=== PATIENT | female | born 1995 | race Caucasian/White ===

== ENCOUNTER 2023-10-29 20:17 | Outpatient (REF) | payer OTHER, SELFPAY ==
[2023-11-03 16:09] LABS: Age Gdln ACOG Testing Note (.); IGP, rfx Aptima HPV ASCU Note (.)
== END 2023-10-29 20:18 | disposition home or self-care (01) ==
LOC: LAB 20:17
PROVIDERS: Visit Provider Obstetrics & Gynecology
DX: Z01.419 Encounter for gynecological examination (general) (routine) without abnormal findings (principal)
CPT/HCPCS: G0145

== ENCOUNTER 2023-11-11 13:59 | Outpatient (OUT) | payer OTHER, SELFPAY ==
--- NOTE | 2023-11-11 14:05 | US_ITS ---
[address] [address] Patient Name: SIVA WEEMS MRN: [id number] date: 1995 Sex: F Assigned Patient Location: US Current Patient Location: US Accession/Order Number: [id number] Exam Date: 11/11/2023 14:06 Report Date: 11/11/2023 14:59 At the request of: JORGE WHITLEY Procedure: US pelvis transvaginal EXAMINATION: US pelvis transvaginal HISTORY: menorrhagia with regular cycle N92.0 COMPARISON: No relevant comparison available. FINDINGS: The uterus is normal in size, contour and echotexture measuring 8.2 x 5.3 x 4.2 cm. No focal myometrial mass. The endometrium measures 9.1 mm, normal. The right ovary measures 4.5 x 3.0 x 3.2 cm. Normal color Doppler flow in the ovary. Areas of anechoic echogenicity the largest measuring 2.7 x 2.3 x 2.7 cm, simple cyst. The left ovary measures 3.3 x 2.7 x 2.3 cm. Normal subcentimeter follicles. Normal color Doppler flow in the ovary No free fluid US/US pelvis transvaginal IMPRESSION: 2.7 cm right ovarian simple cyst Electronically authenticated by: GLENNA IVY Date: 11/11/2023 14:59
[2023-11-11 14:54] LABS: Basophils Absolute Auto 0.1 10^3/uL (0.0-0.1); Basophils Percent Auto 0.5 % (0.2-2.0); Eosinophils Absolute Auto 0.7 10^3/uL (0.0-0.7); Eosinophils Percent Auto 6.2 % (0.9-7.0); Hematocrit 40.4 % (36.0-48.0); Hemoglobin 13.5 g/dL (12.0-16.0); Immature Granulocytes Abs Auto 0.03 10^3/uL (0.00-0.03); Immature Granulocytes Pct Auto 0.3 % (0.0-0.5); Lymphocytes Absolute Auto 2.6 10^3/uL (1.2-3.8); Lymphocytes Percent Auto 22.3 % (20.5-60.0); Mean Corpuscular HGB Conc 33.4 g/dL (29.9-35.2); Mean Corpuscular Hemoglobin 27.4 pg (26.7-34.0); Mean Corpuscular Volume 82.1 fL (81.0-99.0); Mean Platelet Volume 8.7 fL (9.5-13.5); Monocytes Absolute Auto 0.7 10^3/uL (0.3-0.8); Monocytes Percent Auto 5.9 % (1.7-12.0); Neutrophils Absolute Auto 7.7 10^3/uL (1.4-6.5); Neutrophils Percent Auto 64.8 % (43.0-75.0); Platelet Count 305 10^3/uL (150-450); Red Blood Count 4.92 10^6/uL (4.20-5.40); Red Cell Distribution Width 12.8 % (11.0-15.0); White Blood Count 11.9 10^3/uL (4.0-11.0)
[2023-11-11 15:11] LABS: Estimated Average Glucose 103 mg/dL; Glycohemoglobin A1C 5.2 % (4.5-6.2)
[2023-11-11 15:15] LABS: INR 0.94; Partial Thromboplastin Time 30.5 sec (22.3-36.2)
[2023-11-11 16:19] LABS: HCG Quantitative <1 mIU/mL; Thyroid Stimulating Hormone 1.361 uIU/mL (0.358-3.740)
== END 2023-11-11 14:00 | disposition home or self-care (01) ==
LOC: US 14:00
PROVIDERS: Visit Provider Obstetrics & Gynecology
DX: N92.0 Excessive and frequent menstruation with regular cycle (principal); N83.291 Other ovarian cyst, right side
CPT/HCPCS: 36415; 76830; 83036; 84443; 84702; 85025; 85610; 85730

== ENCOUNTER 2024-11-03 18:02 | Outpatient (REF) | payer OTHER, SELFPAY | END 2024-11-03 18:03 | disposition home or self-care (01) | LOC: LAB 18:02 | PROVIDERS: Visit Provider Obstetrics & Gynecology | DX: Z01.419 Encounter for gynecological examination (general) (routine) without abnormal findings (principal) | CPT/HCPCS: 87624; 88175 ==

== ENCOUNTER 2025-01-17 06:57 | Outpatient (OUT) | payer OTHER, SELFPAY ==
--- OUTSIDE RECORDS SUMMARY | 2025-01-17 07:02 | XMS_ITS | CCD ---
Author Organization [facility] Inform ion Partnership [facility] Care Team Providers Care Tent Worker Name Role Phone Rowdy Dennison Unavailable Unavailable Rowdy Dennison Unavailable Unavailable KRISH GO Admitting Unavailable KRISH GO Attending Unavailable RENETTA SHOOK Consulting Unavailable GLENNA ALONZO V Consulting Unavailable KRISH GO Consulting Unavailable INDY GILBERT Admitting Unavailab INDY Briones Attending Unavailab le INDY GILBERT Consulting Unavailab Indy Briones Unavailable Jeramy Fuchs Unavailable Ailyn Harry Unavailable Lili Downing Unavailable Yessenia Gross Unavailable Indy Gilbert NP Primary Care Provider Ofelia INSURANCE CLAIMS EXAMINER-CORRECTIONAL FACILITY PSYCHIATRISTIndy Primary Care Provid er MAGNO STALEY Referring Unavailable NESSARBACHERoscoe, INDY Primary Care Unavailable MAGNO STALEY Referring Unavailable NESSARBACHER, INDY Primary Care Unavailable MAGNO STALEY R Referring Unavailable ROHRBACHER, INDY Primary Care Unavailable Laila Nichole Referring Unavailable ROHRBACHER, INDY Primary Care Unavailable LINDSEY PEARL Attending Unavailable NADEEMACHEINDY Malhotra Referring Unavailable ROHRBACHER, INDY Primary Care Unavailable Rohrbacher INSURANCE CLAIMS EXAMINER-CORRECTIONAL FACILITY PSYCHIATRISTIndy Primary Care Provid er INDY GILBERT Referring Unavailable NESSARBACHER, INDY Primary Care Unavailable MAGNO STALEY Attending Unavailable MAGNO STALEY Attending Unavailable MAGNO STALEY Attending Unavailable MAGNO STALEY Attending Unavailable MAGNO STALEY Attending Unavailable TIERNEY BASS Attending Unavailable MAGNO STALEY Attending Unavailable MAGNO STALEY Attending Unavailable MIRELA PRESTON Attending Unavailable Allergies Allergy Classification Reported Allergen(s) Allergy Type Date of Onset Reaction(s) Facility (20 sources) Contrast media Propensity to adverse reactions 1 lip swelling, Swelling of Lip/Tongue/Thro at, lip swelling [facility] (20 sources) Amoxicillin; Translations: [AMOXICILLIN] Drug Allergy 4 Itching, Rash, Shortness of breath [facility] (19 sources) Cinnamon Preparation Drug Allergy 4 Anaphylaxis [facility] (19 sources) Red Dye #40 (Allura Red) Allergy to substance 4 Itching, Swelling [facility] (4 sources) Fd And C Red No.40; Translations: [FD AND C RED NO.40] Propensity to adverse reactions to drug 4 Anaphylaxis, Itching, Swelling [facility] Medications Current Medications Medication Drug Class(es) Dates Sig (Normalized) Sig (Original) amoxicillin 500 mg oral capsule (7 sources) Penicillin-class Antibacterial Start: 11-04-2021 take 1 capsule by mouth every eight hours Amoxicillin 500 MG 1 capsule Orally tid for 10 day(s) Nov, Active Start: 07-09-2021 End: 08-27-2021 take 1 capsule by mouth twice daily Amoxicillin 500 mg capsule Discontinued 500 MG PO Twice daily July 12, 2021 1:00am August 27, 2021 9:45am Started 07/08/21 for 10 day course Start: 07-08-2021 take 2 capsules by m outh every twenty-four hours Start: 07-08-2021 take 2 capsules by m outh every twenty-four hours Amoxicillin 500 MG 2 capsules Orally once a day for 10 days Jul, Active ascorbic acid 1000 mg oral tablet (20 sources) Vitamin C Ascorbic Acid (v itamin C) 1000 MG tablet Active busPIRone hydrochloride 10 m g oral tablet (20 sources) Start: 10-06-2023 End: 11-02-2024 busPIRone (Buspar) 10 MG tablet 10 mg 10/28/2023 Active Start: 12-18-2022 take 1 tablet by shakira th every twelve hours busPIRone HCl 5 MG 1 tablet Orally Twice a day for 30 days December, Active calcium ascorbate 500 mg oral tablet (1 source) Start: 12-07-2024 take 1 tablet by mouth once daily Ascorbate Calcium (Vitamin C) 500 mg tablet Active 500 MG PO Daily December 07, 2024 12:00am cholecalciferol 0.025 mg oral capsule (20 sources) Vitamin D Start: 12-07-2024 take 1 capsule by mouth once daily Cholecalciferol (Vitamin D3) 25 mcg (1,000 unit) capsule Active 25 MCG PO Daily December 07, 2024 12:00am Cholecalciferol (Vitamin D) 125 MCG (5000 UT) capsule Active take 1 capsule by mouth in the m orning cholecalciferol, vitamin D3, (VITAMIN D3) 5,000 units capsule Take 1 capsule (5,000 Units total) by mouth in the morning. Active desogestrel 0.15 mg / ethinyl estradiol 0.03 mg oral tablet (11 sources) Progestin, Estrogen Start: 06-14-2024 End: 07-12-2024 take 1 tablet by mouth once daily, then take 1 tablet by mouth once daily desogestrel-ethinyl estradiol (Apri) 0.15-30 MG-MCG tablet Indications: Encounter for initial prescription of contraceptives, unspecified contraceptive Take 1 tablet by mouth Daily for 28 days Take 1 tablet by mouth daily 28 tablet 06/14/2024 Active escitalopram 5 mg oral tablet (1 source) Serotonin Reuptake Inhibitor Start: 10-25-2021 take 1 tablet by mouth every twenty-four hours Escitalopram Oxalate 5 MG 1 tablet Orally Once a day for 30 day(s) Oct, Active 21 day ethinyl estradiol 0.200573 mg/hr / etonogestrel 0.005 mg/hr vaginal system (4 sources) Progestin, Estrogen Start: 11-03-2024 End: 11-03-2025 etonogestrel-ethinyl estradiol (Nuvaring) 0.12-0.015 MG/24HR vaginal ring Indications: control counseling Insert 1 Ring into the vagina every 28 (twenty-eight) days Insert vaginal ring for 3 weeks, then remove for 1 week. 1 each 11/03/2024 11/03/2025 Active {21 (ethinyl estradiol 0.035 MG / norgestimate 0.25 MG Oral Tablet) / 7 (inert ingredients 1 MG Oral Tablet) } Pack (2 sources) Progestin, Estrogen Start: 01-22-2023 take 1 tablet by mouth every twenty-four hours Norgestimate-Eth Estradiol 0.25-35 MG-MCG 1 tablet Orally Once a day for 28 days Jan, Active take 1 tablet by shakira once daily as needed Norgestimate-Eth Estradiol 0.25-35 MG-MC G take 1 tablet by mouth once daily for 28 Not-Taking/PRN Etonogestrel-Ethinyl Estradiol (Nuvaring) 0.12-0.015 mg/24 hr ring (1 source) Start: 12-07-2024 Etonogestrel-E thinyl Estradiol (Nuvaring) 0.12-0.015 mg/24 hr ring Active 1 VAG RING VAGINAL EVERY 4 WEEKS December 07, 2024 12:00am leave in place for 3 weeks of a 4-week cycle ferrous sulfate 134 mg oral tablet (15 sources) Start: 12-07-2024 take 1 tablet by mouth once daily Ferrous Sulfate 134 mg (27 mg iron) tablet Active 134 MG PO Daily December 07, 2024 12:00am ferrous sulfate 325 (65 Fe) MG EC tablet Take 325 mg by mouth in the morning and 325 mg at noon and 325 mg in the evening. Take with meals. Do not crush, chew, or split.. Active fluticasone propionate 0.05 mg/actuat metered dose nasal spray (3 sources) Corticosteroid Start: 10-06-2023 Fluticasone Pr opionate 50 mcg/actuation spray,suspension Active 1 SPRAY INTRANASAL Daily October 06, 2023 1:00am Start: 08-12-2023 take 1 spray(s) nasa l route once daily Fluticasone Propionate 50 MCG/ACT 1 spray in each nostril Nasally Once a day for 30 days Aug, Active hydrocortisone 10 mg/ml / neomycin 3.5 mg/ml / polymyxin b 38919 unt/ml otic suspension (1 source) Aminoglycoside Antibacterial, Polymyxin-class Antibacterial, Corticosteroid Start: 11-04-2021 Zspldekn-Ipxyjcook-OL 3.5-90198-5 3 drops right ear Three times a day for 7 days Nov, Active Magnesium (19 sources) Magnesium 100 MG capsule Active magnesium citrate 100 mg oral tablet (1 source) Start: 12-07-2024 take 1 capsule by mouth once daily Magnesium Citrate 100 mg capsule Active 100 MG PO Daily December 07, 2024 12:00am magnesium glycinate 100 mg magnesium capsule (2 sources) take 1 capsule by mouth in the morning magnesium glycinate 100 mg magnesium capsule Take 100 mg by mouth in the morning. Active metFORMIN hydrochloride 500 mg oral tablet (18 sources) Biguanide Start: 06-14-2024 End: 06-14-2025 take 1 tablet by mouth at mealtime metFORMIN (Glucophage) 500 MG tablet Indications: Encounter for weight management Take 1 tablet (500 mg) by mouth in the morning. Take with meals. 30 tablet 06/14/2024 06/14/2025 Active nystatin [id number] unt/ml topical cream (2 sources) Polyene Antifungal Start: 05-28-2024 Nystatin 100,000 unit/gram cream Active 1 APPLIC TOPICAL Twice daily May 28, 2024 12:00am omega-3 acid ethyl esters (jail) 1000 mg oral capsule (14 sources) take 1 capsule by mouth in the morning omega-3 acid ethyl esters (Lovaza) 1 g capsule Take 1 g by mouth in the morning and 1 g before bedtime. Active Raleigh-3 Fatty Acids 500 mg capsule (1 source) Start: 12-07-2024 take 1 capsule by mouth once daily [place]-3 Fatty Acids 500 mg capsule Active 500 MG PO Daily December 07, 2024 12:00am ondansetron 4 mg disintegrating oral tablet (4 sources) Serotonin-3 Receptor Antagonist Start: 07-25-2021 Start: 01-10-2021 End: 03-25-2021 take 1 tablet by mouth every six hours as needed for nausea Ondansetron Hcl (Zofran) 4 mg Tablet Discontinued 4 MG PO Q6H as needed for nausea January 10, 2021 12:00am March 25, 2021 12:14pm SLYND 4 mg (28) tablet (2 sources) Start: 09-09-2024 End: 12-02-2024 take 1 tablet by mouth in the morning SLYND 4 mg (28) tablet Take 1 tablet by mouth in the morning. 09/09/2024 12/02/2024 Active Tylenol Extra Strength 500 MG (2 sources) Completed/Discontinued Medications Medication Drug Class(es) Dates Sig (Normalized) Sig (Original) acetaminophen 500 mg oral tablet (2 sources) Start: 03-24-2021 End: 07-09-2021 take 2 tablets by mouth every six hours Acetaminophen 500 mg Tablet Discontinued 1000 MG PO Q6H March 24, 2021 12:00am July 09, 2021 5:32pm Start: 03-24-2021 End: 07-09-2021 take 1000 mg by mouth every six hours Acetaminophen Discontinued 1000 MG PO Q6H March 24, 2021 12:00am July 09, 2021 5:32pm cephalexin 500 mg oral capsule (3 sources) Cephalosporin Antibacterial Start: 09-03-2024 End: 09-10-2024 take 1 capsule by mouth in the morning, then take 1 capsule by mouth in the evening, then take 1 capsule by mouth at bedtime cephalexin (Keflex) 500 MG capsule Indications: Mastitis Take 1 capsule (500 mg) by mouth in the morning and 1 capsule (500 mg) in the evening and 1 capsule (500 mg) before bedtime. Do all this for 7 days. 21 capsule 09/03/2024 09/09/2024 Discontinued docusate sodium 100 mg oral capsule (2 sources) Start: 03-24-2021 End: 07-09-2021 take 1 capsule by mouth once daily at bedtime Docusate Sodium (Colace) 100 mg capsule Discontinued 100 MG PO Daily at bedtime March 24, 2021 12:00am July 09, 2021 5:32pm drospirenone 4 mg oral tablet (7 sources) Progestin Start: 09-09-2024 End: 12-20-2024 take 1 tablet by mouth once daily Drospirenone (Slynd) 4 MG tablet Indications: control counseling Take 1 tablet by mouth Daily 84 tablet 3 09/09/2024 12/20/2024 Discontinued (Therapy completed) ibuprofen 600 mg oral tablet (4 sources) Nonsteroidal Anti-inflammatory Drug Start: 03-24-2021 End: 07-09-2021 take 1 tablet by mouth every six hours Ibuprofen 600 mg Tablet Discontinued 600 MG PO Q6H March 24, 2021 12:00am July 09, 2021 5:32pm labetalol hydrochloride 200 mg oral tablet (12 sources) beta-Adrenergic Rissa Start: 07-09-2021 End: 10-06-2023 Labetalol 200 mg tablet Discontinued 100 MG PO Daily July 09, 2021 5:45pm October 06, 2023 2:40pm Start: 07-09-2021 End: 10-06-2023 take 100 mg by mouth once daily Labetalol Discontinued 100 MG PO Daily July 09, 2021 5:45pm October 06, 2023 2:40pm Start: 03-25-2021 End: 07-09-2021 take 1 tablet by mouth twice daily Labetalol 200 mg tablet Discontinued 200 MG PO Twice daily March 25, 2021 12:00am July 09, 2021 5:32pm Start: 03-01-2021 End: 03-25-2021 Labetalol 200 mg Tablet Disc ontinued 300 MG PO Three times daily March 01, 2021 12:00am March 25, 2021 12:14pm Start: 03-01-2021 End: 03-25-2021 take 300 mg by mouth three times daily Labetalol Discontinued 300 MG PO Three times daily March 01, 2021 12:00am March 25, 2021 12:14pm take 1 tablet by shakira th every twenty-four hours Labetalol HCl 100 MG 1 tablet Orally Once Daily for 90 day(s) Active levonorgestrel 0.893765 mg/hr intrauterine system (10 sources) Progestin, Progestin-containing Intrauterine Device Start: 04-01-2024 End: 03-31-2029 Levonorgestrel intrauterine device 52 mg meclizine hydrochloride 25 mg oral tablet (1 source) Antiemetic Start: 06-21-2024 End: 12-07-2024 take 1 tablet by mouth twice daily as needed Meclizine 25 mg tablet Discontinued 25 MG PO Twice daily as needed for motion sickness June 21, 2024 1:00am December 07, 2024 8:15am phentermine hydrochloride 37.5 mg oral tablet (20 sources) Sympathomimetic Amine Anorectic Start: 07-15-2024 End: 03-20-2025 take 1 tablet by mouth before mealtime phentermine (Adipex-P) 37.5 MG tablet Indications: Encounter for weight management Take 1 tablet (37.5 mg) by mouth in the morning. Take before meals. 90 tablet 09/09/2024 12/20/2024 Discontinued (Therapy completed) Vit 81-Zlbv-Dxqzk-Dha ( + Dha) 28 mg iron- 975 mcg-200 mg Combo Pack (2 sources) Start: 01-10-2021 End: 07-09-2021 Vit 97-Lrex-Onagd-Dha ( + Dha) 28 mg iron- 975 mcg-200 mg Combo Pack Discontinued 1 PO January 10, 2021 12:00am July 09, 2021 5:32pm traMADol hydrochloride 50 mg oral tablet (2 sources) Opioid Agonist Start: 08-27-2021 End: 10-06-2023 take 0.5-1 tablets by mouth every six hours as needed for pain Tramadol (Ultram) 50 mg tablet Discontinued 50 MG PO Q6H as needed for pain 30 7 August 27, 2021 1:00am October 06, 2023 2:41pm 08/05 - 1 tab po q 6 hours prn pain Turmeric extract (6 sources) End: 06-14-2024 Turmeric (QC Tumeric Complex) 500 MG capsule 06/14/2024 Discontinued Turmeric (QC Elyse dontrell Complex) 500 MG capsule Active Problems Active Problems Problem Classification Problem Date Documented Date Episodic/Chronic Anxiety disorders (7 sources) Anxiety; Translations: [Anxiety disorder, unspecified] Chronic Biliary tract disease (7 sources) Cholecystitis, unspecified; Translations: [Cholelithiasis without obstruction] Onset: 07-26-2021 Resolved: 07-26-2021 Episodic Comment on above: Problem List clean-u p per request of Phys. EHR Cmte Cancer; other and unspecified primary (1 source) History of benign phyllodes neoplasm of breast; Translations: [Personal history of other benign neoplasm] 10-13-2024 Episodic Essential hypertension (16 sources) Essential hypertension; Translations: [Essential (primary) hypertension] Onset: 06-05-2021 Resolved: 06-05-2021 Chronic Headache; including migraine (20 sources) Migraine; Translations: [Other migraine, not intractable, without status migrainosus] Chronic Hypertension complicating ; childbirth and the puerperium (2 sources) -induced hypertension; Translations: [Gestational [-induced] hypertension without significant proteinuria, unspecified trimester] 07-16-2023 Episodic Comment on above: Problem List clean-u p per request of Phys. EHR Cmte Immunizations and screening for infectious disease (11 sources) Contact with and (suspected) exposure to other viral communicable diseases; Translations: [Contact with and (suspected) exposure to other viral communicable diseases] Onset: 08-08-2021 Resolved: 11-04-2021 Episodic Mood disorders (8 sources) Moderate major depression, single episode; Translations: [Major depressive disorder, single episode, moderate] Chronic Mycoses (3 sources) Candidal intertrigo; Translations: [Candidiasis of skin and nail] 05-28-2024 Episodic Neoplasms of unspecified nature or uncertain behavior (3 sources) Phyllodes tumor of breast; 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 unspecified breast] Onset: 09-29-2024 09-09-2024 Episodic Other and unspecified benign neoplasm (1 source) Fibroadenoma of left breast; Translations: [Benign neoplasm of left breast] 10-13-2024 Episodic Other circulatory disease (4 sources) Elevated blood-pressure reading, without diagnosis of hypertension; Translations: [ELEVATED BP READING W/O DX HTN] Onset: 05-19-2020 Episodic Other injuries and conditions due to external causes (1 source) Motion sickness; Translations: [Motion sickness, initial encounter] 06-21-2024 Episodic Other nutritional; endocrine; and metabolic disorders (4 sources) Body mass index 30+ - obesity; Translations: [Body mass index (BMI) 39.0-39.9, adult] Chronic Other nutritional; endocrine; and metabolic disorders (2 sources) Hyperbilirubinemia; 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 EHR Cmte Other nutritional; endocrine; and metabolic disorders (1 source) Weight increased; Translations: [Abnormal weight gain] 08-12-2024 Episodic Other and delivery including normal (2 sources) Mother delivered; Translations: [Encounter for full-term uncomplicated delivery] 07-16-2023 Episodic Comment on above: Problem List clean-u p per request of Phys. EHR Cmte Other screening for suspected conditions (not mental disorders or infectious disease) (5 sources) Encounter for screening for lipoid disorders; Translations: [Encounter for screening for other metabolic disorders] Onset: 05-23-2020 07-16-2023 Episodic Comment on above: Problem List clean-u p per request of Phys. EHR Cmte Other skin disorders (1 source) Localized swelling, mass and lump, right upper limb; Translations: [Localized swelling, mass and lump, right upper limb] Onset: 09-29-2024 Episodic Other upper respiratory infections (15 sources) Acute upper respiratory infection, unspecified; Translations: [Sore throat symptom] Onset: 08-03-2019 Episodic Otitis media and related conditions (3 sources) Acute suppurative otitis media without spontaneous rupture of ear drum, right ear; Translations: [Otitis media, unspecified, right ear] Onset: 08-03-2019 Resolved: 11-04-2021 Episodic Pancreatic disorders (not diabetes) (2 sources) Gallstone pancreatitis; Translations: [Biliary acute pancreatitis without necrosis or infection] 07-16-2023 Episodic Comment on above: Problem List clean-u p per request of Phys. EHR Cmte Residual codes; unclassified (1 source) Localized edema Episodic Residual codes; unclassified (20 sources) Patient encounter status; Translations: [Procedure and treatment not carried out due to patient leaving prior to being seen by health care provider] Onset: 06-14-2024 07-16-2023 Episodic Comment on above: Problem List clean-u p per request of Phys. EHR Cmte Residual codes; unclassified (1 source) Family history of malignant neoplasm of ovary in first degree relative; Translations: [Family history of malignant neoplasm of ovary] 10-13-2024 Episodic Urinary tract infections (2 sources) Urinary tract infectious disease; Translations: [Urinary tract infection, site not specified] 07-16-2023 Episodic Comment on above: Problem List clean-u p per request of Phys. EHR Cmte Past or Other Problems Problem Classification Problem Date Documented Date Episodic/Chronic Abdominal pain (20 sources) Lower abdominal pain, unspecified; Translations: [Pain in female pelvis] Onset: 07-26-2021 Resolved: 07-26-2021 Episodic Contraceptive and procreative management (20 sources) Encounter for initial prescription of contraceptive pills; Translations: [Patient encounter status] Onset: 03-22-2024 Episodic Nausea and vomiting (1 source) Nausea with vomiting, unspecified Onset: 07-26-2021 Resolved: 07-26-2021 Episodic Nonmalignant breast conditions (20 sources) Inflammatory disorder of breast; Translations: [Mastitis without abscess] Onset: 06-14-2024 06-14-2024 Episodic Other ear and sense organ disorders (1 source) Unspecified acute noninfective otitis externa, right ear Onset: 11-04-2021 Resolved: 11-04-2021 Episodic Other liver diseases (1 source) Abnormal levels of other serum enzymes Onset: 07-26-2021 Resolved: 07-26-2021 Episodic Other lower respiratory disease (3 sources) Cough; Translations: [COUGH] Onset: 07-31-2019 Episodic Viral infection (1 source) COVID-19 Onset: 08-08-2021 Resolved: 08-08-2021 Results Test Name Value Interpretation Reference Range Facility CBC WITH AUTO DIFFERENTIALon 11-29-2024 BASOPHILS ABSOLUTE COUNT (10*3/UL) BY AUTOMATED COUNT 0.0 10*3/uL Normal [facility] Comment on above: Performed By: #### C BCA #### [facility] ([facility]) [address] [place] [address] VIR BASOPHILS RELATIVE PERCENT BY AUTOMATED COUNT 0.4 % Normal [facility] Comment on above: Performed By: #### C BCA #### [facility] ([facility]) [address] [place] [address] VIR CELLAVISION DIFFERENTIAL TYPE AUTOMATED DIFFERENTIAL Normal [facility] Comment on above: Performed By: #### C BCA #### [facility] ([facility]) [address] [place] [address] VIR Eosinophils (Bld) [#/Vol] 0.5 10*3/uL Normal [facility] Comment on above: Performed By: #### C BCA #### [facility] ([facility]) [address] [place] [address] VIR EOSINOPHILS RELATIVE PERCENT BY AUTOMATED COUNT 4.9 % Normal [facility] Comment on above: Performed By: #### C BCA #### [facility] ([facility]) [address] [place] [address] VIR Erythrocyte distribution width (RBC) [Ratio] 14.3 % Normal 11.5-15 [facility] Comment on above: Performed By: #### C BCA #### [facility] ([facility]) [address] [place] [address] VIR Hematocrit (Bld) [Volume fraction] 41.7 % Normal 35-47 [facility] Comment on above: Performed By: #### C BCA #### [facility] ([facility]) [address] [place] [address] VIR Hemoglobin (Bld) [Mass/Vol] 13.9 g/dL Normal 11.7-15.5 [facility] Comment on above: Performed By: #### C BCA #### [facility] ([facility]) [address] [facility] [address] [place] [address] VIR LYMPHOCYTES ABSOLUTE COUNT (10*3/UL) BY AUTOMATED COUNT 2.0 10*3/uL Normal [facility] Comment on above: Performed By: #### C BCA #### [facility] ([facility]) [address] [place] [address] VIR LYMPHOCYTES RELATIVE PERCENT BY AUTOMATED COUNT 21.5 % Normal [facility] Comment on above: Performed By: #### C BCA #### [facility] ([facility]) [address] [place] [address] VIR MCH (RBC) [Entitic mass] 27.4 pg Normal 27-34 [facility] Comment on above: Performed By: #### C BCA #### [facility] ([facility]) [address] [place] [address] VIR MCHC (RBC) [Mass/Vol] 33.2 g/dL Normal 32-36 [facility] Comment on above: Performed By: #### C BCA #### [facility] ([facility]) [address] [place] [address] VIR MCV (RBC) [Entitic vol] 83 fL Normal 80-100 [facility] Comment on above: Performed By: #### C BCA #### [facility] ([facility]) [address] [place] [address] VIR MONOCYTES ABSOLUTE COUNT (10*3/UL) BY AUTOMATED COUNT 0.4 10*3/uL Normal [facility] Comment on above: Performed By: #### C BCA #### [facility] ([facility]) [address] [place] [address] VIR MONOCYTES RELATIVE PERCENT BY AUTOMATED COUNT 4.4 % Normal [facility] Comment on above: Performed By: #### C BCA #### [facility] ([facility]) [address] [place] [address] VIR NEUTROPHILS ABSOLUTE COUNT BY AUTOMATED COUNT 6.3 10*3/uL Normal [facility] Comment on above: Performed By: #### C BCA #### [facility] ([facility]) [address] [place] [address] VIR NEUTROPHILS RELATIVE PERCENT BY AUTOMATED COUNT 68.8 % Normal [facility] Comment on above: Performed By: #### C BCA #### [facility] ([facility]) [address] [place] [address] VIR Platelet mean volume (Bld) [Entitic vol] 7.5 fL Normal 7-12 [facility] Comment on above: Performed By: #### C BCA #### [facility] ([facility]) [address] [place] [address] VIR Platelets (Bld) [#/Vol] 292 10*3/uL Normal 150-450 [facility] Comment on above: Performed By: #### C BCA #### [facility] ([facility]) [address] [place] [address] VIR RBC COUNT 5.05 X10E12/L Normal 3.8-5.2 [facility] Comment on above: Performed By: #### C BCA #### [facility] ([facility]) [address] [place] [address] VIR WBC (Bld) [#/Vol] 9.2 10*3/uL Normal 4-11 [facility] Comment on above: Performed By: #### C BCA #### [facility] ([facility]) [address] [place] [address] VIR COMPREHENSIVE METABOLIC PANE Humza 11-29-2024 Albumin [Mass/Vol] 4.5 g/dL Normal 3.2-5.3 [facility] Comment on above: Performed By: #### C MP #### [facility] ([facility]) [address] [place] [address] VIR ALP [Catalytic activity/Vol] 80 U/L Normal 39-130 [facility] Comment on above: Performed By: #### C MP #### [facility] ([facility]) [address] [place] [address] VIR ALT [Catalytic activity/Vol] 17 U/L Normal <=31 [facility] Comment on above: Performed By: #### C MP #### [facility] ([facility]) [address] [place] [address] VIR Anion gap [Moles/Vol] 10 mmol/L Normal 5-15 [facility] Comment on above: Performed By: #### C MP #### [facility] ([facility]) [address] [place] [address] VIR AST [Catalytic activity/Vol] 22 U/L Normal <=41 [facility] Comment on above: Performed By: #### C MP #### [facility] ([facility]) [address] [place] [address] VIR Bilirubin [Mass/Vol] 0.4 mg/dL Normal 0.3-1.2 [facility] Comment on above: Performed By: #### C MP #### [facility] ([facility]) [address] [place] [address] VIR Calcium [Mass/Vol] 9.4 mg/dL Normal 8.5-10.5 [facility] Comment on above: Performed By: #### C MP #### [facility] ([facility]) [address] [place] [address] VIR Chloride [Moles/Vol] 103 mmol/L Normal 98-109 [facility] Comment on above: Performed By: #### C MP #### [facility] ([facility]) [address] [place] [address] VIR CO2 [Moles/Vol] 25 mmol/L Normal 22-32 [facility] Comment on above: Performed By: #### C MP #### [facility] ([facility]) [address] [place] [address] VIR Creatinine [Mass/Vol] 0.78 mg/dL Normal 0.40-1.00 [facility] Comment on above: Result Comment: METH OD TRACEABLE TO IDMS STANDARD Performed By: #### C MP #### [facility] ([facility]) [address] [place] [address] VIR EGFR (CKD-EPI) NON-RACE DEPENDENT >^90 Normal >=60 [facility] Comment on above: Result Comment: Repo rted eGFR is based on the CKD-EPI 2020 equation that does not use a race coefficient. Performed By: #### C MP #### [facility] ([facility]) [address] [place] [address] VIR Glucose [Mass/Vol] 83 mg/dL Normal 65-99 [facility] Comment on above: Performed By: #### C MP #### [facility] ([facility]) [address] [place] [address] VIR Potassium [Moles/Vol] 4.6 mmol/L Normal 3.5-5.0 [facility] Comment on above: Performed By: #### C MP #### [facility] ([facility]) [address] [place] [address] VIR Protein [Mass/Vol] 8.1 g/dL High 6.0-8.0 [facility] Comment on above: Performed By: #### C MP #### [facility] ([facility]) [address] [place] [address] VIR Sodium [Moles/Vol] 138 mmol/L Normal 134-146 [facility] Comment on above: Performed By: #### C MP #### [facility] ([facility]) [address] [place] [address] VIR Urea nitrogen [Mass/Vol] 15 mg/dL Normal 5-23 [facility] Comment on above: Performed By: #### C MP #### [facility] ([facility]) [address] [place] [address] VIR LIPID PROFILEon 11-29-2024 Cholesterol [Mass/Vol] 144 mg/dL Low 150-200 [facility] Comment on above: Performed By: #### L IPR #### [facility] ([facility]) [address] [place] [address] VIR Cholesterol in HDL [Mass/Vol] 43 mg/dL Normal >39 [facility] Comment on above: Result Comment: HDL <40 mg/dL - High Risk HDL > or = 40mg/dL- Desirable HDL >60 mg/dL - Negative Risk Performed By: #### L IPR #### [facility] ([facility]) [address] [place] [address] VIR Cholesterol in LDL [Mass/Vol] 74 mg/dL Normal <130 [facility] Comment on above: Result Comment: LDL <100 mg/dL - Desirable LDL >160 mg/dL - High Risk Performed By: #### L IPR #### [facility] ([facility]) [address] [place] [address] VIR CHOLESTEROL:HDL 3.3 Normal 1.0-5.0 [facility] Comment on above: Performed By: #### L IPR #### [facility] ([facility]) [address] [place] [address] VIR Triglyceride [Mass/Vol] 133 mg/dL Normal 27-150 [facility] Comment on above: Performed By: #### L IPR #### [facility] ([facility]) [address] [place] [address] VIR VERY LOW LIPOPROTEIN 27 mg/dL Normal 0-30 [facility] Comment on above: Performed By: #### L IPR #### [facility] ([facility]) [address] [place] [address] VIR IGP,APTIMA HPV,AGE GDLNon AGE GDLN ACOG TESTING Note . [facility] Comment on above: TESTS RESULT FLAG UN ITS REF RANGE LAB Clinician Provided Cytology Information Source.............Cervix;Endocervix No. of containers..01 ThinPrep Vial Age Algo ACOG Shannon... -65 FLAG LEGEND: L-Low Normal,H-High Normal,LL-Alert Low,HH-Alert High <-Panic Low,>-Panic High,A-Abnormal,AA-Critical Abnormal Performed at: 01 =G [address] [place] [address] Debbie Capps MD, HPV APTIMA Negative Negative [facility] e Comment on above: This nucleic acid am plification test detects fourteen high- risk HPV types (16,18,31,33,35,39,45,51,52,56,58,59,66,68) without differentiation. Performed at: =G - [facility], [place] [id number] Econometrician: Debbie Capps MD, Phone: [phone] Performed at: WB - [facility] [address], [place] [id number] Econometrician: Debbie Capps MD, Phone: [phone] IGP, APTIMA HPV, RFX 16/18,45 Note . [facility] Comment on above: TESTS RESULT FLAG U NITS REF RANGE LAB DIAGNOSIS: 02 NEGATIVE FOR INTRAEPITHELIAL LESION OR MALIGNANCY. CELLULAR CHANGES ASSOCIATED WITH INFLAMMATION ARE PRESENT. THIS SPECIMEN WAS RESCREENED PART OF OUR SMOKING PIPE DRILLER AND THREADER PROGRAM. Specimen adequacy: 02 Satisfactory for evaluation. Endocervical and/or squamous metaplastic cells (endocervical component) are present. Performed by: 03 Ana Luisa Basilio, Montessori Program Director (ASC) QC reviewed by: 02 Erin Shah, Supervisory Montessori Program Director (ASCP) . 02 Note: Note 02 The Pap smear is a screening test designed to aid in the detection of premalignant and malignant conditions of the uterine cervix. It is not a diagnostic procedure and should not be used as the sole means of detecting cervical cancer. Both false-positive and false-negative reports do occur. Test Methodology: Note 02 This liquid based ThinPrep(R) pap test was screened with the use of an image guided system. HPV Genotype Reflex Note 02 Criteria not met, HPV Genotype not performed. FLAG LEGEND: L-Low Normal,H-High Normal,LL-Alert Low,HH-Alert High <-Panic Low,>-Panic High,A-Abnormal,AA-Critical Abnormal Performed at: 02 WB [facility] [address] [address] Debbie Capps MD, 03 KWCYT [facility] [address] [place] [address] Cecil Scott MD, BRUSH-SPATULA CERVIX ENDOCERVIX [facility] [place] POST BX DIAG UNI LTon 0 10-07-2024 [place] POST BX DIAG UNI LT [place] POST BX DIAG UNI LT *ADDENDUM*Addendum [...] Nichole MD on 10/07/2024 3:01 PM 100 Normal [facility] US BX BREAST US GUID INITIAL LTon 10-07-2024 US BX BREAST US GUID INITIAL LT US BX BREAST US GUID INITIAL LT [...] Nichole MD on 10/07/2024 3:01 PM 100 Normal [facility] Surgical Pathologyon 025 Surgical Pathology Normal [facility] Comment on above: Result Comment: [facility] [address] [place] [address] Surgical Pathology Consultation Patient Name:SIVA WEEMS:1995 (Age: 28)Gender:FTaken:10/04/2024Reported:10/07/2024Physician(s):Magno Staley DO ([phone])Copy To:Laila Nichole MD [facility] AVONDALEAccession #:[id number]. Rec. #:[id number]: #[id number] Final Pathologic Diagnosis Left breast,6 o'clock, 3 cmfn, mass, biopsy: BENIGN: Fibroadenoma Report Electronically Signed Out nsk/10/07/2024Melonie Lundberg MD [place] [address], License number: [id number]. Clinical History Biopsy procedure: Ultrasound; Target: Mass; Laterality: Left breast; Location: 6:00 3cmfn; BI-RAD: 4b; Suspect: Fibroadenoma vs. Phyllodes vs. Cancer Gross Description Received in formalin labeled DANK, left breast tissue are 7 fibroadipose tissue cores ranging from 0.2 cm-1.5 cm. The cores are submitted entirely in cassettes A and B. Time incised: 930 Time in formalin: 933 Cold ischemic time: 3 minutes Time in formalin before processin hours (2,ns,[id number], m8.1) SW sxw/10/04/2024NSK Specimen(s) Received Left breast Fee Codes(s): 1; [address] [place] DIAGNOSTIC BILATERAL W CADon 09-29-2024 [place] DIAGNOSTIC BILATERAL W CAD [facility] DIAGNOSTIC BILATERAL W CAD SIVA WEEMS 1995 [id number], [id number], [id number] EXAM: [facility] DIAGNOSTIC BILATERAL W CAD, US [...] on 09/29/2024 9:23 AM 4 c BIOPSY Normal [facility] US AXILLA (BREAST) RT LIMITE Don 09-29-2024 US AXILLA (BREAST) RT LIMITED US AXILLA (BREAST) RT LIMITED SIVA WEEMS 1995 [id number], [id number], [id number] EXAM: [facility] DIAGNOSTIC BILATERAL W CAD, US [...] on 09/29/2024 9:23 AM 4 c BIOPSY Normal [facility] US BREAST LT LIMITEDon 09-29 US BREAST LT LIMITED US BREAST LT LIMITED SIVA WEEMS 1995 [id number], [id number], [id number] EXAM: [facility] DIAGNOSTIC BILATERAL W CAD, US [...] on 09/29/2024 9:23 AM 4 c BIOPSY Normal [facility] HCG ( test) Ql (U)o n 04-01-2024 Interpretation and review of laboratory results Normal [facility] re Preg Test, Ur Negative [facility] e IUD Insertionon 04-01-2024 Najma De Leon LPN 04/02/2024 3:31 PM IUD Insertion Date/Time: 04/01/2024 10:22 AM Performed by: Magno Staley DO Authorized by: Magno Staley DO Consent: Consent obtained: Verbal Consent given by: Patient Procedure risks and benefits discussed: yes Patient questions answered: yes Patient agrees, verbalizes understanding, and wants to proceed: yes Educational handouts given: yes Instructions and paperwork completed: yes Procedure: Pelvic exam performed: yes Negative GC/chlamydia test: yes Negative urine test: yes Negative serum test: yes Cervix cleaned and prepped: yes Speculum placed in vagina: yes Tenaculum applied to cervix: yes Uterus sounded: yes IUD inserted with no complications: yes IUD type: Mirena Strings trimmed: yes Post-procedure: Patient tolerated procedure well: yes Patient will follow up after next period: yes [facility] e COVID/FLU/RSV RT-PCRon 07-21 SARS-CoV-2 (COVID-19) RNA IZZY+probe Ql (Unsp spec) Negative [employer] [facility] frenting Other COVID/FLU/RSV RT-PCR Negative [facility] Other COVID/FLU RT-PCRon SARS-CoV-2 (COVID-19) RNA IZZY+probe Ql (Unsp spec) Negative [facility] Other COVID/FLU RT-PCR Negative [facility] frenting Other COVID Quick Testingon 2021 Result Negative [employer] [facility]rent[facility] Other Quick Fluon 11-04-2021 FLUAV Ab CF (S) [Titer] Negative [facility] Other FLUBV Ab CF (S) [Titer] Negative [facility] Other Alkaline Phosphataseon 08-27 Alkaline Phosphatase Normal 32-92 [facility] Comment on above: Result Comment: Spec imen hemolyzed, redraw requested Performed By: #### L DH, ADDONUAPLUS, CUU, CMP, CBC, URIC #### [facility] [address] Amylaseon 08-27-2021 Amylase Normal 28-100 [facility] Comment on above: Result Comment: Spec imen hemolyzed, redraw requested Performed By: #### L DH, ADDONUAPLUS, CUU, CMP, CBC, URIC #### [facility] [address] Aspartate Amino Transferaseo n 08-27-2021 Aspartate Amino Transferase Normal 10-42 [facility] Comment on above: Result Comment: Spec imen hemolyzed, redraw requested Performed By: #### L DH, ADDONUAPLUS, CUU, CMP, CBC, URIC #### [address] Basic Metabolic Panelon 08-05 Calcium [Mass/Vol] 9.1 mg/dL Normal 8.2-10.2 [facility] Comment on above: Performed By: #### L DH, ADDONUAPLUS, CUU, CMP, CBC, URIC #### [address] Chloride [Moles/Vol] 101 mmol/L Normal 95-114 [facility] Comment on above: Performed By: #### L DH, ADDONUAPLUS, CUU, CMP, CBC, URIC #### [address] CO2 [Moles/Vol] 23.9 mmol/L Normal 22.0-30.0 [facility] Comment on above: Performed By: #### L DH, ADDONUAPLUS, CUU, CMP, CBC, URIC #### [address] Creatinine [Mass/Vol] 0.68 mg/dL Normal 0.44-1.03 [facility] Comment on above: Performed By: #### L DH, ADDONUAPLUS, CUU, CMP, CBC, URIC #### [facility] [address] [place] [address] [place] Creatinine Clr Calc Pharmacy 136.43 [facility] Comment on above: Performed By: #### L DH, ADDONUAPLUS, CUU, CMP, CBC, URIC #### [facility] [address] [place] [address] [place] Estimated GFR ( Inge > 60 [facility] Comment on above: Result Comment: GFR estimated reference range: According to KDOQI guidelines, <60 ml/min/1.73m2 is sufficient to diagnose a patient with chronic kidney disease. Performed By: #### L DH, ADDONUAPLUS, CUU, CMP, CBC, URIC #### [facility] [address] Estimated GFR (Non- Am > 60 [facility] Comment on above: Performed By: #### L DH, ADDONUAPLUS, CUU, CMP, CBC, URIC #### [facility] [address] Glucose [Mass/Vol] 89 mg/dL Normal 70-100 [facility] Comment on above: Result Comment: [place] om Glucose Reference Range is dependent on time and content of last meal. Glucose of more than 200 mg/dL in a nonstressed, ambulatory subject supports the diagnosis of Diabetes Mellitus. ADA recommended reference range Performed By: #### L DH, ADDONUAPLUS, CUU, CMP, CBC, URIC #### [facility] [address] Potassium Normal 3.5-5.1 [facility] Comment on above: Result Comment: Spec imen hemolyzed, redraw requested Performed By: #### L DH, ADDONUAPLUS, CUU, CMP, CBC, URIC #### [facility] [address] Sodium [Moles/Vol] 135 mmol/L Low 136-146 [facility] Comment on above: Performed By: #### L DH, ADDONUAPLUS, CUU, CMP, CBC, URIC #### [facility] [address] [place] [address] Urea nitrogen [Mass/Vol] 10 mg/dL Normal - [facility] Comment on above: Performed By: #### L DH, ADDONUAPLUS, CUU, CMP, CBC, URIC #### [facility] [address] [place] [address] Bilirubin, Total and Directo n 08-27-2021 Bilirubin,Direct Normal 0.0-0.4 [facility] Comment on above: Result Comment: Spec imen hemolyzed, redraw requested Performed By: #### L DH, ADDONUAPLUS, CUU, CMP, CBC, URIC #### [facility] [address] [place] [address] Bilirubin,Indirect Normal [facility] Comment on above: Result Comment: Spec imen hemolyzed, redraw requested Performed By: #### L DH, ADDONUAPLUS, CUU, CMP, CBC, URIC #### [address] Bilirubin,Total Normal 0.3-1.2 [facility] Comment on above: Result Comment: Spec imen hemolyzed, redraw requested Performed By: #### L DH, ADDONUAPLUS, CUU, CMP, CBC, URIC #### [address] HCG,Urineon 08-27-2021 Beta HCG ( test) Ql (U) Negative Normal [facility] Comment on above: Result Comment: PERF ORMED BY: [place] [address] PATHOLOGIST TUBE TRAILER FILLER CORY YAN M.D. Performed By: #### L DH, ADDONUAPLUS, CUU, CMP, CBC, URIC #### [place] [address] [place] [facility] 08-27-2021 L -- ---- Specimen: [id number] Received: 08/27/21 Status: EDI Enrique Num: [id number] Spec Type: Surgical Subm Dr: Jose Desouza DO Tissues: A Gallbladder (GALLBLADDER) Procedures: HE Stain, Gross/Micro L3 ---- Patient Age/Sex Location Account Attending Physician ---- Siva Weems 25/F CO [id number] Jose Desouza DO ---- SPEC NUM: [id number] RECD: 08/27/21 STATUS: EDI ENRIQUE NUM: [id number] CIARA: 08/27/21- SUBM DR: Jsoe Desouza DO ENTERED: 08/27/21 RICARDO RAYMUNDO: SPEC TYPE: Surgical DEPT: S ORDERED: HE Stain, Gross/Micro L3 ORDERED: HE Stain, Gross/Micro L3 Pathological Diagnosis Gallbladder, cholecystectomy: - Chronic cholecystitis with cholelithiasis and cholesterolosis - One benign lymph node (0/) Clinical Information Cholelithiasis, laparoscopic cholecystectomy Gross Description Received in 10% neutral buffered formalin, labeled with the patient's name, number and gallbladder is an unopened gallbladder, measuring 8.2 cm in length with a fundal diameter of up to 2 cm. The serosal surface is pink and smooth, while the hepatic surface is yellow, rough with cautery betancourt. The cystic duct is closed with a clip. In the gallbladder neck region there is a small defect measuring 0.2 cm, extruding dark green bile. A possible cystic duct lymph node is present, measuring 1.4 x 0.5 x 0.4 cm. The gallbladder is opened to reveal a small amount of dark green, viscous bile and a small gallstone (0.3 x 0.3 x 0.3 cm). The gallbladder wall is red and yellow with numerous newman yellow specks. No masses or other lesions are grossly identified. The gallbladder wall measures up to 0.4 cm in thickness. Data Designer sections including the entire lymph node are submitted in one cassette labeled A1. (JS/js) ---- Specimen: [id number] Received: 08/27/21 Status: CARLEYEdita Boby Num: [id number] Spec Type: Surgical Subm Dr: Jose Desouza,DO Tissues: A Gallbladder (GALLBLADDER) Procedures: HE Stain, Gross/Micro L3 ---- Patient: Siva Weems [id number] (Continued) ---- Specimen: [id number] Received: 08/27/21 (Continued) Signed (signature on file) Cory Yan MD 08/28/21 1717 ---- Specimen: [id number] Received: 08/27/21 Status: EDI Enrique Num: [id number] Spec Type: Surgical Subm Dr: Jose Desouza DO Tissues: A Gallbladder (GALLBLADDER) Procedures: GINO Partida, Gross/Micro L3 ---- Patient: Siva Weems Amaya [id number] (Continued) ---- Specimen: [id number] Received: 08/27/21 (Continued) Microscopic Description One glass slide with H E stained material has been examined. The microscopic findings support the above pathologic diagnosis. [id number] ---- ---- Specimen: [id number] Received: 08/27/21 Status: EDI Enrique Num: [id number] Spec Type: Surgical Subm Dr: Jose Desouza DO Tissues: A Gallbladder (GALLBLADDER) Procedures: HE Stain, Gross/Micro L3 ---- Patient: Siva Weems Amaya [id number] (Continued) ---- Signed (signature on file) Cory Yan MD 08/28/21 1717 Normal [facility] Lipaseon 08-27-2021 Lipase [Catalytic activity/Vol] 35.0 U/L Normal 22-51 [facility] Comment on above: Result Comment: PERF ORMED BY: [place] [address] PATHOLOGIST TUBE TRAILER FILLER CORY YAN M.D. Performed By: #### L DH, ASHWIN, CUU, CMP, CBC, URIC #### [address] [place] ERCPon 08-20-2021 [place] ERCP [facility] Main Keyser [address] [place] [address] Fluoroscopy Report Signed Patient: Siva Weems MR#: [id number] 13 : 1995 Acct:[id number] Age/Sex: 25 / F ADM Date: 08/20/21 Loc: Room: Type: [facility] Attending Dr: Ortega Morgan MD Ordering Provider: Ortega Morgan MD Date of Service: 08/20/21 FL/FL ERCP: . Copies to: Ortega Morgan MD ERCP - 3 images: CLINICAL DATA: Abnormal ultrasound and MRCP showing cholelithiasis and sludge. COMPARISON: Ultrasound 07/10/2021 and MRCP 07/11/2021 The procedure was performed by Dr. Morgan. Three spot films were obtained during retrograde injection of contrast into the distal common duct. The common duct is not distended. There are no intraluminal filling defects. A balloon sweep was performed. No gallstones were encountered. Fluoroscopy time: 45 seconds Impression dictated by: Rachel Elias M.D.08/20/2021 2:02 PM Dictation Location: [place] [address] Transcribed By: [facility] 08/20/21 1402 Dictated By: Rachel Elias MD 08/20/21 1400 Signed By: 08/20/21 1402 Normal [facility] HCG,Urineon 08-20-2021 Beta HCG ( test) Ql (U) Negative Normal [facility] Comment on above: Result Comment: PERF ORMED BY: [facility] [address] [place] [id number] PATHOLOGIST TUBE TRAILER FILLER CORY YAN M.D. Performed By: #### L DH, ADDONUAPLUS, CUU, CMP, CBC, URIC #### [facility] [address] [place] [address] [facility] COVID Quick Testingon 2021 Result Positive [facility] Other COVID-19 [facility]Con 08-06-2021 SARS-CoV-2 (COVID-19) RNA IZZY+probe Ql (Unsp spec) Positive Critically abnormal Negative [facility] Comment on above: Order Comment: Reaso n for Exam 30 weeks gestation of ;Elevated blood pressure affe Result Comment: Positive results will only be called to Providers for the following groups of patients: Pre-Surgical Testing, Emergency Room, and Inpatients. Testing for SARS-CoV-2 by RT-PCR This test was developed and its performance characteristics determined by [employer] ([employer]) and validated at the [facility]. This test has not been FDA cleared or approved. This test has been authorized by FDA under an Emergency Use Authorization (EUA). This test has been validated in accordance with the FDA's Guidance Document (Policy for Diagnostics Testing in Laboratories Certified to Perform High Complexity Testing under CLIA prior to Emergency Use Authorization for Coronavirus Disease-2019 during the Public Health Emergency) issued on November 04, 2019. This test is only authorized for the duration of time the declaration that circumstances exist justifying the authorization of the emergency use of in vitro diagnostic tests for detection of SARS-CoV-2 virus and/or diagnosis of COVID-19 infection under section 564(b)(1) of the Act, 21 U.S.C. 360bbb-3(b)(1), unless the authorization is terminated or revoked sooner. PERFORMED BY: [facility] [address] [facility] [place] [address] PATHOLOGIST TUBE TRAILER FILLER CORY YAN M.D. Performed By: #### L DH, ADDONUACRISTIANO, CUU, CMP, CBC, URIC #### [facility] [facility] [address] Coding Summaryon 07-30-2021 Coding Summary HTMLBase 64 DhqhppnpIGa4jVk+PGhlYW Q+UX6NVIIyT53gkJOzlV2Z B3cDGG8XEGPTNKVQCK0KBQ 4baTF8GPmeG0PycqLu JpqedBFgRQ57HHi0MLI9mZ liCRedjF2ieMYkL6y0EhQu BW64tC68JTkmHHTcVvY6Yc ZpbjsgbWFy O6soJhPphOYgFys+PHRhYm xlIHdpZHRoPScxMDAlJyBz aUhfKO4oJi7dDSEtWWKnvF xhcHNlOiBj k9jxSPQsNVbwPO6arMmxE1 NkeGC6WUWbh2h0Rm52xFD+ PMXzLID8gAuhEFehr039Uj Cxx6jvGHZ5 uDStROvfKJX1R33hw3L2TC BcZOLzZTS7zHQ1nD6udDah oiqiV0JgnPBlUfR5EFQ1uA FzrS4llJmk jnozkE0cCfv+R69CXU0MGC EVGH2GDtd0H3YbBpzpfUZ+ WU69HZXrDH01cHLwqIPlo7 tqgUl3QdBr NSHfIVB5xByuFBbjy8EgQH SzP27ekADzc0Z4EZRveHzb wLRoHqDmjHU3wJ5rQUhurw aly7apwdam Qthah3vzbx58fO20Z23rIM qyYAGhQCN8XTKaEXDbsMwg lo4ehG1vUg8+KEfcs5any4 eqkSo0UjSk QTPeqkNmwMguDYK1u7IlTr 65R3CtkEvhd0QeWik5zy84 pSGwz6R8lTV7PCwrPLPxaX 7gYKyrEjS3 FMAnJjBgfO55uFUiGUidSy 2fhStidWghKG3oBMSfzvvi KUKxxI9hFFSkeIBwvJieSA 4wNTBpbjtm o531ZyRdTQQ9FVXevPBgT6 RkjT9lRvWhZFTuUFCdX1Si kYPwVJrlX081TBawAiK5XY IeekKlU9Jf LCMopBuhBhN0l5H0Uy8Jc1 JftjbsBYR6DLxqARSjWeC8 NxSbVpN2V7HiReh4QHEtiS jfZX9dR7Io UTCbquvjmsytzMQ3QQYbQE IcmL00sFOiHLgrQz1dv1J0 g043CIMzDYPpsO30Wl4cmE ogMTBwdCBU tD8axcnvt7ltozuqFdDwBA WxDMg2CMo1RGXrrGbeNkNy LYC1PeB1OZM6yXSyoB6iqC ovybqiaQ1s Oyc+D87usO0uMFK0WNC4pz pzSVYmsyLiUR54ZQ98R4Ik PjwvdGFibGU+PGRpdiBzdH vmGU1eQyEt i8qdn6MrOEuzL2IzWUKjDQ riPro5NCBkSQL6cZT7mH0x AEBaULwph9V4vGU0S4Tlts Ngnr6tq1fj KYZiPOodO90xpIHnx0D2SE VptLK9LEDgsLkcYqDilR92 Oyc+JVCmkTfbx1QpLdvxr3 cky4tsfXq7 KjKyBBTqvvHbdWeqMNV7v2 UpQn34L27wGBinYXHeRGHf TYZmGMLaeZrvhq3vyY7bRw 8+PGNvbCB3 dJG6sF9lGNWbPuD7ZVkvO7 38AfEtiNNrBorzl5xwa6xl mCu2QuCjXHTmefJleNovYY S0p4LvLh44 G54lYThbYEUkQHUpJVNuHZ XweBxugz4emH8mGv9+PC9j r8nqwr02uZ25kKU+PHRkIH Z0lOojRHbl CSRveI2iWFebKiJ3UAFnLr LlzC11sIPrAPnwJr5bhJlb sHtqLZ4eCHGpszvii271Ej Xxo8gkPARa qEKkQQwdVVM1U12nu1P9KX AeIRJrIRD6rJQ7aM7xdXom bjogbGVmdDsgdmVydGljYW adCIupY225 IHRvcDsnPlBhdGllbnQgTm XaAUz7M4RgNku5JAWozXrd PZ3fnVNzCEmuIy4ozZweqN upIB5bJGLm qqshe165CeBsg3rmVOGtoP UeBMstEGO7E76xu6C5QZHe KINeFKF3jDK5cL9jnIrmfz ogbGVmdDsg fxJceYxgXRigEXilJ461TO RvcDsnPkJpcnRoIERhdGU6 AX15OX93uVSwv8S6gZJ8I0 BhZGRpbmct laqxtHM6PECuJEXphY42Cn 4mtJkeYr0eQVQuAYZ3ESPp pAJzR3GdlU2lIhMqNGSfLL FkF5DhxUFo SQciY185SHooKvP4EXNzqq XtH8OvGESnwJseTaH4t5Y8 Mf9JM8E0UK31SR04ePYij8 G5xOX9F0Wh EAOqjhkdvxhvaHA1BVInKV GzeR69Jo9tuTxrJp2gGDCe PPH0XFQqxZSsK1PsaF3vLv AjMDAwMDAw A4YpfWMsZUogE312WDouOm V2JFAsjiSoE6ApPDYngDul PxF6s6C1Ga5DEMb4KM46ZX 85xIAft4D7 pTB7O9LgCMGqgjlkxrhrdD W4NNRmDNEbsI86Pn0klFly Tq2vBZHdVID9GVTggTKaT7 QdlE1vXoRr YJYjBFVyR2ZaoYBsVUguC2 08PEktYyM0XAJfulNuV0Qw INTqoXjnKlO6s2L6Rk3XUZ UlDP40LJK8 vDE3PW94NO57J5OkKakynU FibGU+PHRhYmxlIHdpZHRo FFlsVCEaHfNufGikPU6lOl 9yZGVyLWNv yVjjbLAvPwJhq5qgKEHjFQ mjEX3qqCccC4OiuCG7IOPb q3h3Ok65W62xB8GtmEH+PG XwaYF9sCP5 lV7oIjCoUsA4YDfdX965Wz BinURzZfltw0oan2xhvJy8 KnB1CRWadySoeJmrDCL3v9 HtNo79J18h IHdpZHRoPSIxNSUiIHZhbG eujb2zwV4sVq0+PGNvbCB3 aHQ1eG2nRhGnCwI3JHswL0 49InRvcCIv Tvdps0utg2splPq0CuVyZN EmnxLqcJndEIC4k7QgHn75 Y3AijVcqb9CaSpt0ps42mL Kwf7R6sCW6 M1AmUVZtkneeqPGsoKxfPF 0kIVBzufpoYJTchM4iWESw I7i2HoHeDlN4APmeZ6Vhow R5JEKdbXQz SPrlQII6U98xr0Q5YUByIM CtNQG3oLD9aH3mgIbwszxw bGVmdDsgdmVydGljYWwtYW boK791DZMa gVxaPSXxiF6uRRQieSHxlN bnOG0wPBKxgggiXgCNI2tD HbWmJIhYKAvtNPVSQQF9B8 SyCom2OAPu vQncEB5itKIyLItzGp7juZ hmfPqeUS2eAUWapwswEEYl zC6sGTXpnWDeuKdvQY7cZV Lmdnewz884 FxQeKQL3BRGwmZMjH4XyaS 0gLoMaHFBlFNDeC4PngPRs YXliX085DAcxErA2UUCwvq WuJ2LzUOYx sQipMwM8x8U8Be3cMB8kVF 8xYJf0WI73LI66bJRpi3L5 vYN2A2TeMDUkzvehpxxmfQ I1ZSEoWPZr iZ68nNJxMFzbNo8rk5S1f2 19JRQvQCUknO91Sf3tpVog FSZdyLJLvL2xwfkhf2zecu ogIzAwMDAw PZh5ZUp8REVusMhlIwPiGP Q9LcS5CZW9bLImyS3fyGee xtodjK9rGow+MjcgWWVhcn Y9F9TxInz6 ETEfiXirTK2qnAZbTAzmTb 6iyMdluFmjKM6mJEKbdvtk MRUbxF1zJBUhfCOztMlzQF 4wNTBpbjtm x329LpTmGRM7WAAttNJgG1 YbdV6hNjTmMEViMJFpR8Yv zOKxKRjpX897SMsbXfC3XA CvpfEjN4Ei LKAinSpyIbG6b1R9Pw8OAE 3TESL7Q1ItGnt1GGYcyDsh YW5nbECfUBfmYn6qbAvurA npMB3fIZWh viejMFRmfO3lTXEmwZIykN wySC5hJBQspiyfi123WjCs MIV7RDFxwRGoI8LrkO6dWd AjMDAwMDAw D4QpoTKuCBjsF535EYdiCr L0LGMiznUxG9UgUCJfpHxk RjX5h5Z7Es4VJIlnvIW+PC 40yf01C8Rp OjpwCfq4ZZAyPUT3pUH9bL 7eLHEvWVbbg3I9iWW4V8Rp dhQwvz1re9tvHHZmWEhxI5 0ipUMuh8P7 VREepAD8FFDsdBpeXsLxlH 93Oyc+WMEruBosi7RxYpkq p4myy4jtgRz5YqOyPZNpli FsaWduPSJ0 x9NeDg00C64pUTwqBMJaJD GfJORxYBYtoSlavk6vgX1z Ii8+RTFppGF7bVK7hA0kGg KxHeH4OMax R647GjRewJQeYhvbb0vfv3 hamCy6VnYjAWRidnDhuHum WLJ9a8CyUw71H5PmpHinu0 ZdFbq3wx63 cOUmf9A7eUN8M8IdFLBllr qmjCBstJnlUN8fVABxrnkf SWXviE5sUQMtP7e9ZvYpDh R1LNgbE6Tr aqQ0JXXpqZWmGPHrnMMJuV 8ysvuei1cqnhjuWdFzDJCm IRf9YSi5SWGfnKmpGlEwGS L8KzZ9IQH2 yCQbnQ4bvLwbgbjdgW5wCb c+JXc8z8bfeLRrAX8cwEJ7 YB40BG23vYVuc3C1iZS8O6 BhZGRpbmct ligfnKM0DDAtXTJluA41Ez 4fkEkmRi5aRHWtRTQ7SLAl aBAuC0MqwT8vDhLnPUWqLH PaK8RftCJo GTnzX147VIfmPpC9ADVpau PlB9LtGWRysSafXkN9m5V5 Bk7WMQ53FB47MX70cHMib4 G7jDR6M6Bg BYVuagrsivzwoJM3AKGoLH WgiN93Hf7vgImoBp0pOMMe XAO1HHTtnWOgF5TtqO9zCr AjMDAwMDAw W8WsiLPrHTsiX555AOpoFz W3EPQrhtGbR5UkGHMytOys QiZ7g9D3Ey1DPp45KC88AU 99vWEba4V4 uMC6Q5HjGQHbainhrblbfJ J1ZTGgSMRxtV75Sn1pfRsr Sd0pQVPbIUE8ARTslIUnX0 GzjT6wWdEj PHCaQGCvL5GlaRSpKAzrE7 01JHcpUyK2IVDjzzNqI3Ew KRIahFebZuG9r7R6Qg6HXE hzlqj9Z9Jj PjwvdHI+ME38DKEwMI07wA UkoSEcp1oleWb5EiBiNUAq ONZ4hJhxIKmja9UuJXBfF4 7evDBsv6H4 IGN (more content not included)... Normal [facility] Provider Orderson 07-30-2021 Provider Orders [id number]#1.0 0OTGTIFF Normal [facility] Hepatic Function Panel Stand charissa 07-26-2021 Albumin [Mass/Vol] 4.4 g/dL Normal 3.5-5.0 [facility] Comment on above: Performed By: #### 1 [id number] #### [facility] (DEFAULT) [address] [place] [address] 97928 Albumin/Globulin [Mass ratio] 1.0 {ratio} Low 1.4-2.6 [facility] Comment on above: Performed By: #### 1 [id number] #### [facility] (DEFAULT) [address] [place] [address] 05929 Alk Phos 301 IU/L High 32-91 [facility] Comment on above: Performed By: #### 1 [id number] #### [facility] (DEFAULT) [address] [place] [address] 97908 ALT [Catalytic activity/Vol] 369.0 U/L High 14.0-54.0 [facility] Comment on above: Performed By: #### 1 [id number] #### [facility] (DEFAULT) [address] [place] [address] 28946 AST [Catalytic activity/Vol] 215 U/L High 15-41 [facility] Comment on above: Performed By: #### 1 [id number] #### [facility] (DEFAULT) [address] [place] [address] 87493 Bili Direct 0.30 mg/dL Normal 0.10-0.50 [facility] Comment on above: Performed By: #### 1 [id number] #### [facility] (DEFAULT) [address] [place] [address] 00356 Bili Indirect 0.8 mg/dL Normal 0.2-0.8 [facility] Comment on above: Performed By: #### 1 [id number] #### [facility] (DEFAULT) [address] [place] [address] 11092 Bili Total 1.1 mg/dL Normal 0.3-1.2 [facility] Comment on above: Performed By: #### 1 [id number] #### [facility] (DEFAULT) [address] [place] [address] 41498 Globulin (S) [Mass/Vol] 4.2 g/dL Normal 1.5-4.3 [facility] Comment on above: Performed By: #### 1 [id number] #### [facility] (DEFAULT) [address] [place] [address] 70659 Protein [Mass/Vol] 8.6 g/dL High 6.5-8.1 [facility] Comment on above: Performed By: #### 1 [id number] #### [facility] (DEFAULT) [address] [place] [address] 38983 Comprehensive Metabolic Pane [facility] 07-25-2021 Albumin [Mass/Vol] 4.0 g/dL Normal 3.2-5.5 [facility] Comment on above: Order Comment: Reaso n for Exam 30 weeks gestation of ;Elevated blood pressure affe Performed By: #### L DH, ADDONUAPLUS, CUU, CMP, CBC, URIC #### [facility] [address] [place] [address] [facility] Albumin/Globulin [Mass ratio] 1.0 {ratio} Normal [facility] Comment on above: Order Comment: Reaso n for Exam 30 weeks gestation of ;Elevated blood pressure affe Performed By: #### L DH, ADDONUAPLUS, CUU, CMP, CBC, URIC #### [facility] [address] [place] [address] ALP [Catalytic activity/Vol] 348 U/L High 32-92 [facility] Comment on above: Order Comment: Reaso n for Exam 30 weeks gestation of ;Elevated blood pressure affe Result Comment: PERF ORMED BY: [place] [address] PATHOLOGIST [employer]UBE TRAILER FILLER CORY YAN M.D. Performed By: #### L DH, ADDONUAPLUS, CUU, CMP, CBC, URIC #### [facility] [address] [place] [id number] [facility] ALT [Catalytic activity/Vol] 502 U/L High 10-60 [facility] Comment on above: Order Comment: Reaso n for Exam 30 weeks gestation of ;Elevated blood pressure affe Performed By: #### L DH, ADDONUAPLUS, CUU, CMP, CBC, URIC #### [address] AST [Catalytic activity/Vol] 450 U/L High 10-42 [facility] Comment on above: Order Comment: Reaso n for Exam 30 weeks gestation of ;Elevated blood pressure affe Performed By: #### L DH, ADDONUAPLUS, CUU, CMP, CBC, URIC #### [place] [id number] [facility] Bilirubin [Mass/Vol] 2.2 mg/dL High 0.3-1.2 [facility] Comment on above: Order Comment: Reaso n for Exam 30 weeks gestation of ;Elevated blood pressure affe Result Comment: Samp les from patients who have taken Naproxen have shown spurious elevation in Total Bilirubin levels. A metabolite of Naproxen, O-desmethylnaproxen, has been shown to interfere with the Jendrluanneik-Caitlin method for measuring Total Bilirubin. Performed By: #### L DH, ADDONUAPLUS, CUU, CMP, CBC, URIC #### [address] Calcium [Mass/Vol] 9.7 mg/dL Normal 8.2-10.2 [facility] Comment on above: Order Comment: Reaso n for Exam 30 weeks gestation of ;Elevated blood pressure affe Performed By: #### L DH, ADDONUAPLUS, CUU, CMP, CBC, URIC #### [facility] [address] Chloride [Moles/Vol] 101 mmol/L Normal 95-114 [facility] Comment on above: Order Comment: Reaso n for Exam 30 weeks gestation of ;Elevated blood pressure affe Performed By: #### L DH, ADDONUAPLUS, CUU, CMP, CBC, URIC #### [facility] [address] CO2 [Moles/Vol] 22.3 mmol/L Normal 22.0-30.0 [facility] Comment on above: Order Comment: Reaso n for Exam 30 weeks gestation of ;Elevated blood pressure affe Performed By: #### L DH, ADDONUAPLUS, CUU, CMP, CBC, URIC #### [facility] [address] [place] [address] Creatinine [Mass/Vol] 1.01 mg/dL Normal 0.44-1.03 [facility] Comment on above: Order Comment: Reaso n for Exam 30 weeks gestation of ;Elevated blood pressure affe Performed By: #### L DH, ADDONUAPLUS, CUU, CMP, CBC, URIC #### [facility] [address] Estimated GFR ( Inge > 60 [facility] Comment on above: Order Comment: Reaso n for Exam 30 weeks gestation of ;Elevated blood pressure affe Result Comment: GFR estimated reference range: According to KDOQI guidelines, <60 ml/min/1.73m2 is sufficient to diagnose a patient with chronic kidney disease. Performed By: #### L DH, ADDONUAPLUS, CUU, CMP, CBC, URIC #### [facility] [address] [place] [address] Estimated GFR (Non- Am > 60 [facility] Comment on above: Order Comment: Reaso n for Exam 30 weeks gestation of ;Elevated blood pressure affe Performed By: #### L DH, ADDONUAPLUS, CUU, CMP, CBC, URIC #### [facility] [address] Globulin (S) [Mass/Vol] 4.0 g/dL Normal [facility] Comment on above: Order Comment: Reaso n for Exam 30 weeks gestation of ;Elevated blood pressure affe Performed By: #### L DH, ADDONUAPLUS, CUU, CMP, CBC, URIC #### [facility] [address] Glucose [Mass/Vol] 80 mg/dL Normal 70-100 [facility] Comment on above: Order Comment: Reaso n for Exam 30 weeks gestation of ;Elevated blood pressure affe Result Comment: [facility] Glucose Reference Range is dependent on time and content of last meal. Glucose of more than 200 mg/dL in a nonstressed, ambulatory subject supports the diagnosis of Diabetes Mellitus. ADA recommended reference range Performed By: #### L DH, ADDONUAPLUS, CUU, CMP, CBC, URIC #### [address] Potassium [Moles/Vol] 4.2 mmol/L Normal 3.5-5.1 [facility] Comment on above: Order Comment: Reaso n for Exam 30 weeks gestation of ;Elevated blood pressure affe Performed By: #### L DH, ADDONUAPLUS, CUU, CMP, CBC, URIC #### [facility] [address] [place] [address] Protein [Mass/Vol] 8.0 g/dL High 6.1-7.9 [facility] Comment on above: Order Comment: Reaso n for Exam 30 weeks gestation of ;Elevated blood pressure affe Performed By: #### L DH, ADDONUAPLUS, CUU, CMP, CBC, URIC #### [facility] [address] [place] [address] [place] Sodium [Moles/Vol] 140 mmol/L Normal 136-146 [facility] Comment on above: Order Comment: Reaso n for Exam 30 weeks gestation of ;Elevated blood pressure affe Performed By: #### L DH, ADDONUAPLUS, CUU, CMP, CBC, URIC #### [facility] [address] Urea nitrogen [Mass/Vol] 16 mg/dL Normal 9- [facility] Comment on above: Order Comment: Reaso n for Exam 30 weeks gestation of ;Elevated blood pressure affe Performed By: #### L DH, ADDONUAPLUS, CUU, CMP, CBC, URIC #### [facility] [address] Hepatic Panelon 07-25-2021 Albumin [Mass/Vol] 4.0 g/dL Normal 3.2-5.5 [facility] Comment on above: Order Comment: Reaso n for Exam 30 weeks gestation of ;Elevated blood pressure affe Performed By: #### L DH, ADDONUAPLUS, CUU, CMP, CBC, URIC #### [facility] [address] Albumin/Globulin [Mass ratio] 0.9 {ratio} Normal [facility] Comment on above: Order Comment: Reaso n for Exam 30 weeks gestation of ;Elevated blood pressure affe Performed By: #### L DH, ADDONUAPLUS, CUU, CMP, CBC, URIC #### [facility] [address] [place] [address] ALP [Catalytic activity/Vol] 347 U/L High 32-92 [facility] Comment on above: Order Comment: Reaso n for Exam 30 weeks gestation of ;Elevated blood pressure affe Result Comment: PERF ORMED BY: [place] [address] PATHOLOGIST TUBE TRAILER FILLER CORY YAN M.D. Performed By: #### L DH, ADDONUAPLUS, CUU, CMP, CBC, URIC #### [facility] [address] ALT [Catalytic activity/Vol] 511 U/L High 10-60 [facility] Comment on above: Order Comment: Reaso n for Exam 30 weeks gestation of ;Elevated blood pressure affe Performed By: #### L DH, ADDONUAPLUS, CUU, CMP, CBC, URIC #### [facility] [address] [place] [id number] [facility] AST [Catalytic activity/Vol] 437 U/L High 10-42 [facility] Comment on above: Order Comment: Reaso n for Exam 30 weeks gestation of ;Elevated blood pressure affe Performed By: #### L DH, ADDONUAPLUS, CUU, CMP, CBC, URIC #### [facility] [address] [place] [id number] [facility] Bilirubin [Mass/Vol] 2.2 mg/dL High 0.3-1.2 [facility] Comment on above: Order Comment: Reaso n for Exam 30 weeks gestation of ;Elevated blood pressure affe Result Comment: Samp les from patients who have taken Naproxen have shown spurious elevation in Total Bilirubin levels. A metabolite of Naproxen, O-desmethylnaproxen, has been shown to interfere with the Jendrassik-Grof method for measuring Total Bilirubin. Performed By: #### L DH, ADDONUAPLUS, CUU, CMP, CBC, URIC #### [facility] [address] [place] [id number] [facility] Bilirubin,Indirect 1.1 mg/dL Normal [facility] Comment on above: Order Comment: Reaso n for Exam 30 weeks gestation of ;Elevated blood pressure affe Performed By: #### L DH, ADDONUAPLUS, CUU, CMP, CBC, URIC #### [facility] [address] [place] [id number] [place] Bilirubin.indirect [Mass/Vol] 1.1 mg/dL High 0.0-0.4 [facility] Comment on above: Order Comment: Reaso n for Exam 30 weeks gestation of ;Elevated blood pressure affe Performed By: #### L DH, ADDONUAPLUS, CUU, CMP, CBC, URIC #### [facility] [address] [place] [id number] [facility] Globulin (S) [Mass/Vol] 4.3 g/dL Normal [facility] Comment on above: Order Comment: Reaso n for Exam 30 weeks gestation of ;Elevated blood pressure affe Performed By: #### L DH, ADDONUAPLUS, CUU, CMP, CBC, URIC #### [facility] [address] Protein [Mass/Vol] 8.3 g/dL High 6.1-7.9 [facility] Comment on above: Order Comment: Reaso n for Exam 30 weeks gestation of ;Elevated blood pressure affe Performed By: #### L DH, ADDONUAPLUS, CUU, CMP, CBC, URIC #### [facility] [address] Dipstick and Microscopicon 1 09-19-2020 Appearance (U) Clear Normal Clear [facility] Comment on above: Order Comment: Reaso n for Exam 30 weeks gestation of ;Elevated blood pressure affe Performed By: #### L DH, ADDONUAPLUS, CUU, CMP, CBC, URIC #### [facility] [address] Bacteria,Urine None Seen Normal None Seen [facility] Comment on above: Order Comment: Reaso n for Exam 30 weeks gestation of ;Elevated blood pressure affe Performed By: #### L DH, ADDONUAPLUS, CUU, CMP, CBC, URIC #### [facility] [address] Bilirubin,Urine Negative Normal Negative [facility] Comment on above: Order Comment: Reaso n for Exam 30 weeks gestation of ;Elevated blood pressure affe Performed By: #### L DH, ADDONUAPLUS, CUU, CMP, CBC, URIC #### [facility] [address] Color (U) Yellow Normal Yellow [facility] Comment on above: Order Comment: Reaso n for Exam 30 weeks gestation of ;Elevated blood pressure affe Performed By: #### L DH, ADDONUAPLUS, CUU, CMP, CBC, URIC #### [facility] [address] Glucose Ql (U) Normal Normal Normal [facility] Comment on above: Order Comment: Reaso n for Exam 30 weeks gestation of ;Elevated blood pressure affe Performed By: #### L DH, ADDONUAPLUS, CUU, CMP, CBC, URIC #### [facility] [address] Hyaline Casts,Urine 9-19 High 0-8 [facility] Comment on above: Order Comment: Reaso n for Exam 30 weeks gestation of ;Elevated blood pressure affe Performed By: #### L DH, ADDONUAPLUS, CUU, CMP, CBC, URIC #### [facility] [address] Ketones Ql (U) Negative Normal Negative [facility] Comment on above: Order Comment: Reaso n for Exam 30 weeks gestation of ;Elevated blood pressure affe Performed By: #### L DH, ADDONUAPLUS, CUU, CMP, CBC, URIC #### [facility] [address] [place] [address] Leukocyte esterase Test strip Ql (U) Negative Normal Negative [facility] Comment on above: Order Comment: Reaso n for Exam 30 weeks gestation of ;Elevated blood pressure affe Performed By: #### L DH, ADDONUAPLUS, CUU, CMP, CBC, URIC #### [facility] [address] [place] [address] Nitrite,Urine Negative Normal Negative [facility] Comment on above: Order Comment: Reaso n for Exam 30 weeks gestation of ;Elevated blood pressure affe Performed By: #### L DH, ADDONUAPLUS, CUU, CMP, CBC, URIC #### [facility] [address] Occult Blood,Urine Negative Normal Negative [facility] Comment on above: Order Comment: Reaso n for Exam 30 weeks gestation of ;Elevated blood pressure affe Performed By: #### L DH, ADDONUAPLUS, CUU, CMP, CBC, URIC #### [facility] [address] [place] [address] [place] pH (U) 5.5 [pH] Normal 5.0-9.0 [facility] Comment on above: Order Comment: Reaso n for Exam 30 weeks gestation of ;Elevated blood pressure affe Performed By: #### L DH, ADDONUAPLUS, CUU, CMP, CBC, URIC #### [facility] [address] [place] [id number] [facility] Protein (U) [Mass/Vol] 30 mg/dL High Negative [facility] Comment on above: Order Comment: Reaso n for Exam 30 weeks gestation of ;Elevated blood pressure affe Performed By: #### L DH, ADDONUAPLUS, CUU, CMP, CBC, URIC #### [facility] [address] RBC,Urine 5-9 High 0-4 [facility] Comment on above: Order Comment: Reaso n for Exam 30 weeks gestation of ;Elevated blood pressure affe Performed By: #### L DH, ADDONUAPLUS, CUU, CMP, CBC, URIC #### [facility] [address] Renal Epithelial Cells,Urine None Seen Normal 0-1 [facility] Comment on above: Order Comment: Reaso n for Exam 30 weeks gestation of ;Elevated blood pressure affe Performed By: #### L DH, ADDONUAPLUS, CUU, CMP, CBC, URIC #### [facility] [address] [place] [address] Specificy [place],Urine 1.027 Normal 1.001-1.030 [facility] Comment on above: Order Comment: Reaso n for Exam 30 weeks gestation of ;Elevated blood pressure affe Performed By: #### L DH, ADDONUAPLUS, CUU, CMP, CBC, URIC #### [facility] [address] Squamous Epithelial Cell,Urine 5-9 High 0-2 [facility] Comment on above: Order Comment: Reaso n for Exam 30 weeks gestation of ;Elevated blood pressure affe Performed By: #### L DH, ADDONUAPLUS, CUU, CMP, CBC, URIC #### [facility] [address] [place], [place] [id number] [facility] Urobilinogen,Urine Normal Normal Normal [facility] Comment on above: Order Comment: Reaso n for Exam 30 weeks gestation of ;Elevated blood pressure affe Performed By: #### L DH, ADDONUAPLUS, CUU, CMP, CBC, URIC #### [facility] [address] [place] [address] WBC,Urine 5-9 High 0-4 [facility] Comment on above: Order Comment: Reaso n for Exam 30 weeks gestation of ;Elevated blood pressure affe Performed By: #### L DH, ADDONUAPLUS, CUU, CMP, CBC, URIC #### [facility] [address] [place] [address] HCG,Urineon 07-19-2021 Beta HCG ( test) Ql (U) Negative Normal [facility] Comment on above: Order Comment: Reaso n for Exam 30 weeks gestation of ;Elevated blood pressure affe Result Comment: PERF ORMED BY: [place] [address] PATHOLOGIST [employer] FILLER CORY YAN M.D. Performed By: #### L DH, ADDONUAPLUS, CUU, CMP, CBC, URIC #### [address] Hepatic Panelon 07-12-2021 Albumin [Mass/Vol] 3.1 g/dL Low 3.2-5.5 [facility] Comment on above: Performed By: #### L DH, ADDONUAPLUS, CUU, CMP, CBC, URIC #### [address] Albumin/Globulin [Mass ratio] 0.8 {ratio} Normal [facility] Comment on above: Performed By: #### L DH, ADDONUAPLUS, CUU, CMP, CBC, URIC #### [address] ALP [Catalytic activity/Vol] 260 U/L High 32-92 [facility] Comment on above: Result Comment: PERF ORMED BY: [place] [address] PATHOLOGIST [employer] TRAILER FILLER CORY YAN M.D. Performed By: #### L DH, ADDONUAPLUS, CUU, CMP, CBC, URIC #### [facility] [address] ALT [Catalytic activity/Vol] 304 U/L High 10-60 [facility] Comment on above: Performed By: #### L DH, ADDONUAPLUS, CUU, CMP, CBC, URIC #### [facility] [address] [place] [id number] [facility] AST [Catalytic activity/Vol] 151 U/L High 10-42 [facility] Comment on above: Performed By: #### L DH, ADDONUAPLUS, CUU, CMP, CBC, URIC #### [facility] [address] Bilirubin [Mass/Vol] 1.4 mg/dL High 0.3-1.2 [facility] Comment on above: Result Comment: Samp les from patients who have taken Naproxen have shown spurious elevation in Total Bilirubin levels. A metabolite of Naproxen, O-desmethylnaproxen, has been shown to interfere with the Jendrassik-Grof method for measuring Total Bilirubin. Performed By: #### L DH, ADDONUAPLUS, CUU, CMP, CBC, URIC #### [address] [address] Bilirubin,Indirect 0.9 mg/dL Normal [facility] Comment on above: Performed By: #### L DH, ADDONUAPLUS, CUU, CMP, CBC, URIC #### [address] Bilirubin.indirect [Mass/Vol] 0.5 mg/dL High 0.0-0.4 [facility] Comment on above: Performed By: #### L DH, ADDONUAPLUS, CUU, CMP, CBC, URIC #### [address] Globulin (S) [Mass/Vol] 3.7 g/dL [facility] Comment on above: Performed By: #### L DH, ADDONUAPLUS, CUU, CMP, CBC, URIC #### [address] Protein [Mass/Vol] 6.8 g/dL Normal 6.1-7.9 [facility] Comment on above: Performed By: #### L DH, ADDONUAPLUS, CUU, CMP, CBC, URIC #### [address] Complete Blood Count Auto Di ffon 07-11-2021 Basophils (Bld) [#/Vol] 0.0 10*3/uL Normal 0.0-0.2 [facility] Comment on above: Result Comment: PERF ORMED BY: [place] [address] PATHOLOGIST TUBE TRAILER FILLER CORY YAN M.D. Performed By: #### L DH, ADDONUAPLUS, CUU, CMP, CBC, URIC #### [address] Basophils/100 WBC (Bld) 0.4 % Normal . [facility] Comment on above: Performed By: #### L DH, ADDONUAPLUS, CUU, CMP, CBC, URIC #### [address] Eosinophils (Bld) [#/Vol] 0.4 10*3/uL Normal 0.0-0.45 [facility] Comment on above: Performed By: #### L DH, ADDONUAPLUS, CUU, CMP, CBC, URIC #### [address] Eosinophils/100 WBC (Bld) 5.9 % Normal . [facility] Comment on above: Performed By: #### L DH, ADDONUAPLUS, CUU, CMP, CBC, URIC #### [address] Erythrocyte distribution width (RBC) [Ratio] 15.7 % High 11.9-15.3 [facility] Comment on above: Performed By: #### L DH, ADDONUAPLUS, CUU, CMP, CBC, URIC #### [address] Hematocrit (Bld) [Volume fraction] 36.9 % Normal 34.0-46.4 [facility] Comment on above: Performed By: #### L DH, ADDONUAPLUS, CUU, CMP, CBC, URIC #### [address] Hemoglobin (Bld) [Mass/Vol] 12.2 g/dL Normal 11.8-15.4 [facility] Comment on above: Performed By: #### L DH, ADDONUAPLUS, CUU, CMP, CBC, URIC #### [address] Lymphocytes (Bld) [#/Vol] 1.0 10*3/uL Normal 1.00-4.8 [facility] Comment on above: Performed By: #### L DH, ADDONUAPLUS, CUU, CMP, CBC, URIC #### [address] Lymphocytes/100 WBC (Bld) 14.6 % Normal . [facility] Comment on above: Performed By: #### L DH, ADDONUAPLUS, CUU, CMP, CBC, URIC #### [address] MCH (RBC) [Entitic mass] 25.2 pg Normal 24.7-34.3 [facility] Comment on above: Performed By: #### L DH, ADDONUAPLUS, CUU, CMP, CBC, URIC #### [address] MCV (RBC) [Entitic vol] 76.5 fL Low 80-100 [facility] Comment on above: Performed By: #### L DH, ADDONUAPLUS, CUU, CMP, CBC, URIC #### [address] Mean Corpuscular HGB Conc 32.9 g/dL Normal 32.0-35.0 [facility] Comment on above: Performed By: #### L DH, ADDONUAPLUS, CUU, CMP, CBC, URIC #### [address] [place] [address] [place] Monocytes (Bld) [#/Vol] 0.4 10*3/uL Normal 0.0-0.8 [facility] Comment on above: Performed By: #### L DH, ADDONUAPLUS, CUU, CMP, CBC, URIC #### [address] Monocytes/100 WBC (Bld) 5.8 % Normal . [facility] Comment on above: Performed By: #### L DH, ADDONUAPLUS, CUU, CMP, CBC, URIC #### [address] Neutrophils (Bld) [#/Vol] 5.2 10*3/uL Normal 1.8-7.7 [facility] Comment on above: Performed By: #### L DH, ADDONUAPLUS, CUU, CMP, CBC, URIC #### [address] Neutrophils/100 WBC (Bld) 73.3 % Normal . [facility] Comment on above: Performed By: #### L DH, ADDONUAPLUS, CUU, CMP, CBC, URIC #### [address] Nucleated RBC/100 WBC (Bld) [Ratio] 0.1 % Normal 0-0.5 [facility] Comment on above: Performed By: #### L DH, ADDONUAPLUS, CUU, CMP, CBC, URIC #### [address] Platelet mean volume (Bld) [Entitic vol] 6.9 fL Normal 6.3-10.7 [facility] Comment on above: Performed By: #### L DH, ADDONUAPLUS, CUU, CMP, CBC, URIC #### [place] [address] [place] Platelets (Bld) [#/Vol] 287 10*3/uL Normal 150-450 [facility] Comment on above: Performed By: #### L DH, ADDONUAPLUS, CUU, CMP, CBC, URIC #### [facility] [address] RBC (Bld) [#/Vol] 4.83 10*6/uL Normal 3.60-5.00 [facility] Comment on above: Performed By: #### L DH, ADDONUAPLUS, CUU, CMP, CBC, URIC #### [facility] [address] WBC (Bld) [#/Vol] 7.1 10*3/uL Normal 4.5-11.0 [facility] Comment on above: Performed By: #### L DH, ADDONUAPLUS, CUU, CMP, CBC, URIC #### [facility] [address] [place] [address] Comprehensive Metabolic Pane humza 07-11-2021 Albumin [Mass/Vol] 3.1 g/dL Low 3.2-5.5 [facility] Comment on above: Performed By: #### L DH, ADDONUAPLUS, CUU, CMP, CBC, URIC #### [facility] [address] [place] [address] Albumin/Globulin [Mass ratio] 0.8 {ratio} Normal [facility] Comment on above: Performed By: #### L DH, ADDONUAPLUS, CUU, CMP, CBC, URIC #### [facility] [address] [place] [address] ALP [Catalytic activity/Vol] 268 U/L High 32-92 [facility] Comment on above: Performed By: #### L DH, ADDONUAPLUS, CUU, CMP, CBC, URIC #### [facility] [address] ALT [Catalytic activity/Vol] 331 U/L High 10-60 [facility] Comment on above: Performed By: #### L DH, ADDONUAPLUS, CUU, CMP, CBC, URIC #### [facility] [address] [place] [id number] [facility] AST [Catalytic activity/Vol] 149 U/L High 10-42 [facility] Comment on above: Performed By: #### L DH, ADDONUAPLUS, CUU, CMP, CBC, URIC #### [address] Bilirubin [Mass/Vol] 2.3 mg/dL High 0.3-1.2 [facility] Comment on above: Result Comment: Samp les from patients who have taken Naproxen have shown spurious elevation in Total Bilirubin levels. A metabolite of Naproxen, O-desmethylnaproxen, has been shown to interfere with the Jendrassik-Grof method for measuring Total Bilirubin. Performed By: #### L DH, ADDONUAPLUS, CUU, CMP, CBC, URIC #### [address] Calcium [Mass/Vol] 8.8 mg/dL Normal 8.2-10.2 [facility] Comment on above: Performed By: #### L DH, ADDONUAPLUS, CUU, CMP, CBC, URIC #### [address] Chloride [Moles/Vol] 107 mmol/L Normal 95-114 [facility] Comment on above: Performed By: #### L DH, ADDONUAPLUS, CUU, CMP, CBC, URIC #### [address] CO2 [Moles/Vol] 22.0 mmol/L Normal 22.0-30.0 [facility] Comment on above: Performed By: #### L DH, ADDONUAPLUS, CUU, CMP, CBC, URIC #### [address] Creatinine [Mass/Vol] 0.48 mg/dL Normal 0.44-1.03 [facility] Comment on above: Performed By: #### L DH, ADDONUAPLUS, CUU, CMP, CBC, URIC #### [facility] [address] [place] [address] [place] Creatinine Clr Calc Pharmacy 199.21 Normal [facility] Comment on above: Performed By: #### L DH, ADDONUAPLUS, CUU, CMP, CBC, URIC #### [facility] [address] Estimated GFR ( Inge > 60 Normal [facility] Comment on above: Result Comment: GFR estimated reference range: According to KDOQI guidelines, <60 ml/min/1.73m2 is sufficient to diagnose a patient with chronic kidney disease. Performed By: #### L DH, ADDONUAPLUS, CUU, CMP, CBC, URIC #### [facility] [address] Estimated GFR (Non- Am > 60 Normal [facility] Comment on above: Performed By: #### L DH, ADDONUAPLUS, CUU, CMP, CBC, URIC #### [address] Globulin (S) [Mass/Vol] 3.7 g/dL Normal [facility] Comment on above: Performed By: #### L DH, ADDONUAPLUS, CUU, CMP, CBC, URIC #### [address] Glucose [Mass/Vol] 87 mg/dL Normal 70-100 [facility] Comment on above: Result Comment: [place] Glucose Reference Range is dependent on time and content of last meal. Glucose of more than 200 mg/dL in a nonstressed, ambulatory subject supports the diagnosis of Diabetes Mellitus. ADA recommended reference range Performed By: #### L DH, ADDONUAPLUS, CUU, CMP, CBC, URIC #### [address] Potassium [Moles/Vol] 3.6 mmol/L Normal 3.5-5.1 [facility] Comment on above: Performed By: #### L DH, ADDONUAPLUS, CUU, CMP, CBC, URIC #### [address] Protein [Mass/Vol] 6.8 g/dL Normal 6.1-7.9 [facility] Comment on above: Performed By: #### L DH, ADDONUAPLUS, CUU, CMP, CBC, URIC #### [facility] [address] Sodium [Moles/Vol] 138 mmol/L Normal 136-146 [facility] Comment on above: Performed By: #### L DH, ADDONUAPLUS, CUU, CMP, CBC, URIC #### [facility] [address] [place] [id number] [facility] Urea nitrogen [Mass/Vol] 4 mg/dL Low 9-23 [facility] Comment on above: Performed By: #### L DH, ADDONUAPLUS, CUU, CMP, CBC, URIC #### [facility] [address] Lipaseon 07-11-2021 Lipase [Catalytic activity/Vol] 326.0 U/L High 22-51 [facility] Comment on above: Result Comment: PERF ORMED BY: [place] [address] PATHOLOGIST TUBE TRAILER FILLER CORY YAN M.D. Performed By: #### L DH, ADDONUAPLUS, CUU, CMP, CBC, URIC #### [facility] [address] MR MRCPon 07-11-2021 MR MRCP [facility] Main [place] [address] [place] [address] MRI Report Signed Patient: Siva Weems MR#: [id number] 13 : 1995 Acct:[id number] Age/Sex: 25 / F ADM Date: 07/10/21 Loc: Room: [address] [place] [address] Type: ADM IN Attending Dr: Jade Jauregui MD Ordering Provider: Ortega Morgan MD Date of Service: 07/11/21 MR/MR MRCP: r/o choledocholithiasis Copies to: MD Jade uV MD EXAMINATION: MRCP CLINICAL INFORMATION: Elevated bilirubin, cholelithiasis. Concern for choledocholithiasis. Right upper quadrant pain with eating. COMPARISON: Ultrasound of gallbladder on 07/10/2021 TECHNIQUE: MR examination of the abdomen were obtained using T1-weighted in phase and bix-di-xiban axial and T2-weighted 5 mm coronal images of the upper abdomen with breath holding technique, as well as STIR 40 mm slab images in various coronal planes with breath holding technique for evaluation of the biliary and pancreatic ducts. FINDINGS: There is normal caliber of the common bile duct without intraluminal filling defect. The visualized intrahepatic bile ducts are also unremarkable. Intraluminal filling defects are noted within the gallbladder from cholelithiasis. There appears mild pericholecystic edema. The pancreas is of unremarkable size without peripancreatic inflammation. The spleen, adrenal glands, and kidneys are unremarkable. There is no ascites. MR/MR MRCP IMPRESSION: NORMAL COMMON BILE DUCT. CHOLELITHIASIS WITH MILD PERICHOLECYSTIC EDEMA. Impression dictated by: Max Rosales M.D.07/11/2021 12:37 PM Dictation Location: [place] [address] Transcribed By: [facility] 07/11/21 1237 Dictated By: Max Rosales MD 07/11/21 1230 Signed By: 07/11/21 1237 Normal [facility] Prothrombin Time INRon 07-11 INR Coag (PPP) [Relative time] 1.1 {INR} Normal [facility] Comment on above: Result Comment: INR Therapeutic Range A) Pre- and Peroperative OAT started two weeks before surgery. NOT HIP SURGERY: 1.5 - 2.5 HIP SURGERY: 2 - 3 B) Primary and secondary prevention of venous THROMBOSIS: 2 - 3 C) Active venous thrombosis, pulmonary embolism and prevention of recurrent venous thrombosis: 2 - 3 D) Prevention of arterial thromboembolism including patients with mechanical heart valves: 3 - 4.5 PERFORMED BY: [place] [address] PATHOLOGIST TUBE TRAILER FILLER CORY YAN M.D. Performed By: #### L REANNA, ASHWIN, CUU, CMP, CBC, URIC #### [facility] [address] [place] [address] PT Coag (PPP) [Time] 12.6 s Normal 9.0-12.9 [facility] Comment on above: Performed By: #### L REANNA, ASHWIN, CUU, CMP, CBC, URIC #### [facility] [address] Type and Screenon 07-11-2021 ABO and Rh group Nom (Bld) Blood group A Rh(D) positive Normal [facility] Comment on above: Result Comment: PERF ORMED BY: [place] [address] PATHOLOGIST TUBE TRAILER FILLER CORY YAN M.D. Basic Metabolic Panelon Calcium [Mass/Vol] 9.2 mg/dL Normal 8.2-10.2 [facility] Comment on above: Performed By: #### L DH, ADDONUAPLUS, CUU, CMP, CBC, URIC #### [address] Chloride [Moles/Vol] 105 mmol/L Normal 95-114 [facility] Comment on above: Performed By: #### L DH, ADDONUAPLUS, CUU, CMP, CBC, URIC #### [address] CO2 [Moles/Vol] 21.5 mmol/L Low 22.0-30.0 [facility] Comment on above: Performed By: #### L DH, ADDONUAPLUS, CUU, CMP, CBC, URIC #### [address] Creatinine [Mass/Vol] 0.66 mg/dL Normal 0.44-1.03 [facility] Comment on above: Performed By: #### L DH, ADDONUAPLUS, CUU, CMP, CBC, URIC #### [address] Creatinine Clr Calc Pharmacy 144.88 Normal [facility] Comment on above: Result Comment: PERF ORMED BY: [place] [address] PATHOLOGIST TUBE TRAILER FILLER CORY YAN M.D. Performed By: #### L DH, ADDONUAPLUS, CUU, CMP, CBC, URIC #### [facility] [address] [place] [address] Estimated GFR ( Inge > 60 Normal [facility] Comment on above: Result Comment: GFR estimated reference range: According to KDOQI guidelines, <60 ml/min/1.73m2 is sufficient to diagnose a patient with chronic kidney disease. Performed By: #### L DH, ADDONUAPLUS, CUU, CMP, CBC, URIC #### [facility] [address] Estimated GFR (Non- Am > 60 Normal [facility] Comment on above: Performed By: #### L DH, ADDONUAPLUS, CUU, CMP, CBC, URIC #### [facility] [address] Glucose [Mass/Vol] 108 mg/dL High 70-100 [facility] Comment on above: Result Comment: [place] Glucose Reference Range is dependent on time and content of last meal. Glucose of more than 200 mg/dL in a nonstressed, ambulatory subject supports the diagnosis of Diabetes Mellitus. ADA recommended reference range Performed By: #### L DH, ADDONUAPLUS, CUU, CMP, CBC, URIC #### [facility] [address] Potassium [Moles/Vol] 3.7 mmol/L Normal 3.5-5.1 [facility] Comment on above: Performed By: #### L DH, ADDONUAPLUS, CUU, CMP, CBC, URIC #### [facility] [address] Sodium [Moles/Vol] 138 mmol/L Normal 136-146 [facility] Comment on above: Performed By: #### L DH, ADDONUAPLUS, CUU, CMP, CBC, URIC #### [facility] [address] [place] [address] [place] Urea nitrogen [Mass/Vol] 9 mg/dL Normal 9-23 [facility] Comment on above: Performed By: #### L DH, ADDONUAPLUS, CUU, CMP, CBC, URIC #### [facility] [address] [place] [address] [place] COVID-19 Antigenon 12-07-202 1 COVID-19 Antigen Healthcare Worker?: N Sadie Reference Sadie Reference Negative SARS-CoV+SARS-CoV-2 (COVID-19) Ag [Presence] in Respiratory specimen by Rapid immunoassay Negative for SARS Antigen by [facility] COVID19 Blank Space Sadie Disclaimer Negative results, from patients with symptom Sadie Disclaimer onset beyond five days, should be treated as Sadie Disclaimer presumptive and confirmation with a molecular Sadie Disclaimer assay, if necessary, for patient management, Sadie Disclaimer may be performed. Negative results do not rule Sadie Disclaimer out COVID-19 and should not be used as the sole Sadie Disclaimer basis for treatment or patient management Sadie Disclaimer decisions, including infection control decisions. Sadie Disclaimer Negative results should be considered in the Sadie Disclaimer context of a patient's recent exposures, history Sadie Disclaimer and the presence of clinical signs and symptoms Sadie Disclaimer consistent with COVID-19. COVID19 Blank Space Sadie Disclaimer The Sadie SARS Antigen [facility] does not differentiate Sadie Disclaimer between SARS-CoV and SARS-CoV-2. COVID19 Blank Space Sadie Disclaimer This test was developed and its performance Sadie Disclaimer characteristic determined by [facility] and Sadie Disclaimer validated at [facility]. This Sadie Disclaimer test has not been FDA cleared or approved. This Sadie Disclaimer test has been authorized by FDA under an Emergency Use Sadie Disclaimer Authorization (EUA). This test has been validated Sadie Disclaimer in accordance with the FDA's Guidance Document (Policy Sadie Disclaimer for Diagnostics Testing in Laboratories Certified to Sadie Disclaimer Perform High Complexity Testing under CLIA prior to Sadie Disclaimer Emergency Use Authorization for Coronavirus Sadie Disclaimer isease-2018 during the Public Health Emergency) Sadie Disclaimer issued on November 04, 2019. This test is only authorized Sadie Disclaimer for the duration of time the declaration that Sadie Disclaimer circumstances exist justifying the authorization of Sadie Disclaimer the emergency use of in vitro diagnostic tests for Sadie Disclaimer detection of SARS-CoV-2 virus and/or diagnosis of Sadie Disclaimer COVID-19 infection under section 564(b)(1) of the Sadie Disclaimer Act, 21 U.S.C. 360bbb-3(b)(1), unless the Sadie Disclaimer authorization is terminated or revoked sooner. PERFORMED BY: [place] [address] PATHOLOGIST TUBE TRAILER FILLER CORY YAN M.D. Normal [facility] Comment on above: Performed By: #### L DH, ADDONUAPLUS, CUU, CMP, CBC, URIC #### [address] COVID[facility]19 [facility] SARS-CoV-2 (COVID-19) RNA IZZY+probe Ql (Unsp spec) Negative Normal Negative [facility] Comment on above: Order Comment: Reaso n for Exam 30 weeks gestation of ;Elevated blood pressure affe Name Collection Type:: Clean-Voided Midstream Result Comment: Testing for SARS-CoV-2 by RT-PCR This test was developed and its performance characteristics determined by [employer]) and validated at the [facility]. This test has not been FDA cleared or approved. This test has been authorized by FDA under an Emergency Use Authorization (EUA). This test has been validated in accordance with the FDA's Guidance Document (Policy for Diagnostics Testing in Laboratories Certified to Perform High Complexity Testing under CLIA prior to Emergency Use Authorization for Coronavirus Disease-2019 during the Public Health Emergency) issued on November 04, 2019. This test is only authorized for the duration of time the declaration that circumstances exist justifying the authorization of the emergency use of in vitro diagnostic tests for detection of SARS-CoV-2 virus and/or diagnosis of COVID-19 infection under section 564(b)(1) of the Act, 21 U.S.C. 360bbb-3(b)(1), unless the authorization is terminated or revoked sooner. PERFORMED BY: [place] [phone] PATHOLOGIST TUBE TRAILER FILLER CORY YAN M.D. Performed By: #### L DH, ADDONUAPLUS, CUU, CMP, CBC, URIC #### [address] Complete Blood Count Auto Di ffon 07-10-2021 Basophils (Bld) [#/Vol] 0.0 10*3/uL Normal 0.0-0.2 [facility] Comment on above: Result Comment: PERF ORMED BY: [place] [address] PATHOLOGIST TUBE TRAILER FILLER CORY YAN M.D. Performed By: #### L DH, ADDONUAPLUS, CUU, CMP, CBC, URIC #### [address] Basophils/100 WBC (Bld) 0.4 % Normal . [facility] Comment on above: Performed By: #### L DH, ADDONUAPLUS, CUU, CMP, CBC, URIC #### [address] Eosinophils (Bld) [#/Vol] 0.3 10*3/uL Normal 0.0-0.45 [facility] Comment on above: Performed By: #### L DH, ADDONUAPLUS, CUU, CMP, CBC, URIC #### [address] Eosinophils/100 WBC (Bld) 3.4 % Normal . [facility] Comment on above: Performed By: #### L DH, ADDONUAPLUS, CUU, CMP, CBC, URIC #### [address] Erythrocyte distribution width (RBC) [Ratio] 15.7 % High 11.9-15.3 [facility] Comment on above: Performed By: #### L DH, ADDONUAPLUS, CUU, CMP, CBC, URIC #### [address] Hematocrit (Bld) [Volume fraction] 40.9 % Normal 34.0-46.4 [facility] Comment on above: Performed By: #### L DH, ADDONUAPLUS, CUU, CMP, CBC, URIC #### [address] Hemoglobin (Bld) [Mass/Vol] 13.4 g/dL Normal 11.8-15.4 [facility] Comment on above: Performed By: #### L DH, ADDONUAPLUS, CUU, CMP, CBC, URIC #### [address] Lymphocytes (Bld) [#/Vol] 0.9 10*3/uL Low 1.00-4.8 [facility] Comment on above: Performed By: #### L DH, ADDONUAPLUS, CUU, CMP, CBC, URIC #### [address] Lymphocytes/100 WBC (Bld) 8.8 % Normal . [facility] Comment on above: Performed By: #### L DH, ADDONUAPLUS, CUU, CMP, CBC, URIC #### [address] MCH (RBC) [Entitic mass] 25.1 pg Normal 24.7-34.3 [facility] Comment on above: Performed By: #### L DH, ADDONUAPLUS, CUU, CMP, CBC, URIC #### [address] MCV (RBC) [Entitic vol] 76.5 fL Low 80-100 [facility] Comment on above: Performed By: #### L DH, ADDONUAPLUS, CUU, CMP, CBC, URIC #### [address] Mean Corpuscular HGB Conc 32.8 g/dL Normal 32.0-35.0 [facility] Comment on above: Performed By: #### L DH, ADDONUAPLUS, CUU, CMP, CBC, URIC #### [address] Monocytes (Bld) [#/Vol] 0.5 10*3/uL Normal 0.0-0.8 [facility] Comment on above: Performed By: #### L DH, ADDONUAPLUS, CUU, CMP, CBC, URIC #### [address] Monocytes/100 WBC (Bld) 4.8 % Normal . [facility] Comment on above: Performed By: #### L DH, ADDONUAPLUS, CUU, CMP, CBC, URIC #### [address] Neutrophils (Bld) [#/Vol] 8.4 10*3/uL High 1.8-7.7 [facility] Comment on above: Performed By: #### L DH, ADDONUAPLUS, CUU, CMP, CBC, URIC #### [address] Neutrophils/100 WBC (Bld) 82.6 % Normal . [facility] Comment on above: Performed By: #### L DH, ADDONUAPLUS, CUU, CMP, CBC, URIC #### [place] [address] [place] Nucleated RBC/100 WBC (Bld) [Ratio] 0.0 % Normal 0-0.5 [facility] Comment on above: Performed By: #### L DH, ADDONUAPLUS, CUU, CMP, CBC, URIC #### [place] [address] [place] Platelet mean volume (Bld) [Entitic vol] 6.8 fL Normal 6.3-10.7 [facility] Comment on above: Performed By: #### L DH, ADDONUAPLUS, CUU, CMP, CBC, URIC #### [facility] [address] Platelets (Bld) [#/Vol] 345 10*3/uL Normal 150-450 [facility] Comment on above: Performed By: #### L DH, ADDONUAPLUS, CUU, CMP, CBC, URIC #### [facility] [address] RBC (Bld) [#/Vol] 5.35 10*6/uL High 3.60-5.00 [facility] Comment on above: Performed By: #### L DH, ADDONUAPLUS, CUU, CMP, CBC, URIC #### [address] WBC (Bld) [#/Vol] 10.1 10*3/uL Normal 4.5-11.0 [facility] Comment on above: Performed By: #### L DH, ADDONUAPLUS, CUU, CMP, CBC, URIC #### [address] Dipstick and Microscopicon 1 09-10-2020 Appearance (U) Cloudy Critically abnormal Clear [facility] Comment on above: Order Comment: Reaso n for Exam 30 weeks gestation of ;Elevated blood pressure affe Name Collection Type:: Clean-Voided Midstream Performed By: #### L DH, ADDONUAPLUS, CUU, CMP, CBC, URIC #### [address] Bacteria,Urine 1+ High None Seen [facility] Comment on above: Order Comment: Reaso n for Exam 30 weeks gestation of ;Elevated blood pressure affe Name Collection Type:: Clean-Voided Midstream Performed By: #### L DH, ADDONUAPLUS, CUU, CMP, CBC, URIC #### [address] Bilirubin,Urine 3+ High Negative [facility] Comment on above: Order Comment: Reaso n for Exam 30 weeks gestation of ;Elevated blood pressure affe Name Collection Type:: Clean-Voided Midstream Performed By: #### L DH, ADDONUAPLUS, CUU, CMP, CBC, URIC #### [facility] [address] Calcium Oxalate Crystals,Urine 1+ Normal [facility] Comment on above: Order Comment: Reaso n for Exam 30 weeks gestation of ;Elevated blood pressure affe Name Collection Type:: Clean-Voided Midstream Performed By: #### L DH, ADDONUAPLUS, CUU, CMP, CBC, URIC #### [facility] [address] Color (U) Dark Yellow Critically abnormal Yellow [facility] Comment on above: Order Comment: Reaso n for Exam 30 weeks gestation of ;Elevated blood pressure affe Name Collection Type:: Clean-Voided Midstream Performed By: #### L DH, ADDONUAPLUS, CUU, CMP, CBC, URIC #### [facility] [address] Glucose Ql (U) Normal Normal Normal [facility] Comment on above: Order Comment: Reaso n for Exam 30 weeks gestation of ;Elevated blood pressure affe Name Collection Type:: Clean-Voided Midstream Performed By: #### L DH, ADDONUAPLUS, CUU, CMP, CBC, URIC #### [facility] [address] [place] [address] [place] Hyaline Casts,Urine 1-2 High 0-1 [facility] Comment on above: Order Comment: Reaso n for Exam 30 weeks gestation of ;Elevated blood pressure affe Name Collection Type:: Clean-Voided Midstream Performed By: #### L DH, ADDONUAPLUS, CUU, CMP, CBC, URIC #### [facility] [address] [place] [address] [place] Ketones Ql (U) 3+ High Negative [facility] Comment on above: Order Comment: Reaso n for Exam 30 weeks gestation of ;Elevated blood pressure affe Name Collection Type:: Clean-Voided Midstream Performed By: #### L DH, ADDONUAPLUS, CUU, CMP, CBC, URIC #### [facility] [address] Leukocyte esterase Test strip Ql (U) 2+ High Negative [facility] Comment on above: Order Comment: Reaso n for Exam 30 weeks gestation of ;Elevated blood pressure affe Name Collection Type:: Clean-Voided Midstream Performed By: #### L DH, ADDONUAPLUS, CUU, CMP, CBC, URIC #### [facility] [address] Mucus,Urine 2+ Critically abnormal [facility] Comment on above: Order Comment: Reaso n for Exam 30 weeks gestation of ;Elevated blood pressure affe Name Collection Type:: Clean-Voided Midstream Performed By: #### L DH, ADDONUAPLUS, CUU, CMP, CBC, URIC #### [facility] [address] [place] [address] Nitrite,Urine Positive High Negative [facility] Comment on above: Order Comment: Reaso n for Exam 30 weeks gestation of ;Elevated blood pressure affe Name Collection Type:: Clean-Voided Midstream Performed By: #### L DH, ADDONUAPLUS, CUU, CMP, CBC, URIC #### [facility] [address] [place] [address] Occult Blood,Urine Negative Normal Negative [facility] Comment on above: Order Comment: Reaso n for Exam 30 weeks gestation of ;Elevated blood pressure affe Name Collection Type:: Clean-Voided Midstream Performed By: #### L DH, ADDONUAPLUS, CUU, CMP, CBC, URIC #### [facility] [address] Other Casts,Urine None Seen Normal None Seen [facility] Comment on above: Order Comment: Reaso n for Exam 30 weeks gestation of ;Elevated blood pressure affe Name Collection Type:: Clean-Voided Midstream Performed By: #### L DH, ADDONUAPLUS, CUU, CMP, CBC, URIC #### [address] pH (U) 5.5 [pH] Normal 5.0-9.0 [facility] Comment on above: Order Comment: Reaso n for Exam 30 weeks gestation of ;Elevated blood pressure affe Name Collection Type:: Clean-Voided Midstream Performed By: #### L DH, ADDONUAPLUS, CUU, CMP, CBC, URIC #### [facility] [address] [place] [address] Protein (U) [Mass/Vol] 30 mg/dL High Negative [facility] Comment on above: Order Comment: Reaso n for Exam 30 weeks gestation of ;Elevated blood pressure affe Name Collection Type:: Clean-Voided Midstream Performed By: #### L DH, ADDONUAPLUS, CUU, CMP, CBC, URIC #### [address] RBC,Urine Rare Normal 0-4 [facility] Comment on above: Order Comment: Reaso n for Exam 30 weeks gestation of ;Elevated blood pressure affe Name Collection Type:: Clean-Voided Midstream Performed By: #### L DH, ADDONUAPLUS, CUU, CMP, CBC, URIC #### [address] Specificy [place],Urine 1.038 High 1.001-1.030 [facility] Comment on above: Order Comment: Reaso n for Exam 30 weeks gestation of ;Elevated blood pressure affe Name Collection Type:: Clean-Voided Midstream Performed By: #### L DH, ADDONUAPLUS, CUU, CMP, CBC, URIC #### [facility] [address] [place] [address] Squamous Epithelial Cell,Urine 5-9 High 0-2 [facility] Comment on above: Order Comment: Reaso n for Exam 30 weeks gestation of ;Elevated blood pressure affe Name Collection Type:: Clean-Voided Midstream Performed By: #### L DH, ADDONUAPLUS, CUU, CMP, CBC, URIC #### [address] Urobilinogen,Urine Normal Normal Normal [facility] Comment on above: Order Comment: Reaso n for Exam 30 weeks gestation of ;Elevated blood pressure affe Name Collection Type:: Clean-Voided Midstream Performed By: #### L DH, ADDONUAPLUS, CUU, CMP, CBC, URIC #### [facility] [address] WBC,Urine 5-9 High 0-4 [facility] Comment on above: Order Comment: Reaso n for Exam 30 weeks gestation of ;Elevated blood pressure affe Name Collection Type:: Clean-Voided Midstream Performed By: #### L DH, ADDONUAPLUS, CUU, CMP, CBC, URIC #### [facility] [address] HCG,Urineon 07-10-2021 Beta HCG ( test) Ql (U) Negative Normal [facility] Comment on above: Order Comment: Reaso n for Exam 30 weeks gestation of ;Elevated blood pressure affe Name Collection Type:: Clean-Voided Midstream Result Comment: PERF ORMED BY: [place] [address] PATHOLOGIST TUBE TRAILER FILLER CORY YAN M.D. Performed By: #### L DH, ADDONUAPLUS, CUU, CMP, CBC, URIC #### [facility] [address] [place] [address] Hepatic Panelon 07-10-2021 Albumin [Mass/Vol] 3.8 g/dL Normal 3.2-5.5 [facility] Comment on above: Performed By: #### L DH, ADDONUAPLUS, CUU, CMP, CBC, URIC #### [facility] [address] [place] [address] Albumin/Globulin [Mass ratio] 0.9 {ratio} Normal [facility] Comment on above: Performed By: #### L DH, ADDONUAPLUS, CUU, CMP, CBC, URIC #### [facility] [address] [place] [address] ALP [Catalytic activity/Vol] 291 U/L High 32-92 [facility] Comment on above: Performed By: #### L DH, ADDONUAPLUS, CUU, CMP, CBC, URIC #### [facility] [address] ALT [Catalytic activity/Vol] 432 U/L High 10-60 [facility] Comment on above: Performed By: #### L DH, ADDONUAPLUS, CUU, CMP, CBC, URIC #### [facility] [address] [place] [id number] [facility] AST [Catalytic activity/Vol] 207 U/L High 10-42 [facility] Comment on above: Performed By: #### L DH, ADDONUAPLUS, CUU, CMP, CBC, URIC #### [facility] [address] [place] [id number] [facility] Bilirubin [Mass/Vol] 4.2 mg/dL High 0.3-1.2 [facility] Comment on above: Result Comment: Samp les from patients who have taken Naproxen have shown spurious elevation in Total Bilirubin levels. A metabolite of Naproxen, O-desmethylnaproxen, has been shown to interfere with the Jendrassik-Grof method for measuring Total Bilirubin. Performed By: #### L DH, ADDONUAPLUS, CUU, CMP, CBC, URIC #### [address] Bilirubin,Indirect 1.6 mg/dL Normal [facility] Comment on above: Performed By: #### L DH, ADDONUAPLUS, CUU, CMP, CBC, URIC #### [address] Bilirubin.indirect [Mass/Vol] 2.6 mg/dL High 0.0-0.4 [facility] Comment on above: Performed By: #### L DH, ADDONUAPLUS, CUU, CMP, CBC, URIC #### [place] [id number] [facility] Globulin (S) [Mass/Vol] 4.1 g/dL [facility] Comment on above: Performed By: #### L DH, ADDONUAPLUS, CUU, CMP, CBC, URIC #### [facility] [address] Protein [Mass/Vol] 7.9 g/dL Normal 6.1-7.9 [facility] Comment on above: Performed By: #### L DH, ADDONUAPLUS, CUU, CMP, CBC, URIC #### [facility] [address] Prothrombin Time INRon 07-10 INR Coag (PPP) [Relative time] 1.2 {INR} Normal [facility] Comment on above: Result Comment: INR Therapeutic Range A) Pre- and Peroperative OAT started two weeks before surgery. NOT HIP SURGERY: 1.5 - 2.5 HIP SURGERY: 2 - 3 B) Primary and secondary prevention of venous THROMBOSIS: 2 - 3 C) Active venous thrombosis, pulmonary embolism and prevention of recurrent venous thrombosis: 2 - 3 D) Prevention of arterial thromboembolism including patients with mechanical heart valves: 3 - 4.5 PERFORMED BY: [place] [address] PATHOLOGIST TUBE TRAILER FILLER CORY YAN M.D. Performed By: #### L DH, ADDONUAPLUS, CUU, CMP, CBC, URIC #### [address] PT Coag (PPP) [Time] 13.4 s High 9.0-12.9 [facility] Comment on above: Performed By: #### L DH, ADDONUAPLUS, CUU, CMP, CBC, URIC #### [address] Sadie Ag Negativeon 07-10-20 Sadie Ag Negative Negative Normal Negative [facility] Comment on above: Result Comment: This is a duplicate Sadie SARS Antigen (HUGH) result to be used for statistical tracking purpose only. PERFORMED BY: [place] [address] PATHOLOGIST TUBE TRAILER FILLER CORY YAN M.D. Performed By: #### L DH, ADDONUAPLUS, CUU, CMP, CBC, URIC #### [address] [address] [facility] US gall bladderon 07-10-2021 US gall bladder [facility] Main [place] [address] [place], [place] [id number] Ultrasound Report Signed Patient: Siva Weems MR#: [id number] 13 : 1995 Acct:[id number] Age/Sex: 25 / F ADM Date: 07/10/21 Loc: ER Room: Type: [facility] ER Attending Dr: Ordering Provider: Maya Arteaga PA-C Date of Service: 07/10/21 US/US gall bladder: r/o gallstones Copies to: Maya Arteaga PA-C Gallbladder ultrasound 07/10/2021. CLINICAL DATA: Right upper quadrant abdominal pain and nausea. FINDINGS: Duplex sonographic evaluation of the gallbladder was performed. The gallbladder is distended and contains sludge. There are also shadowing calculi in the gallbladder. No abnormal thickening of the gallbladder wall or pericholecystic fluid is seen. A sonographic Spivey's sign was not observed. The common bile duct is abnormally dilated (10 mm diameter). The liver and the pancreas appear grossly unremarkable as visualized. Color Doppler and spectral waveform analysis reveal hepatopetal flow in the main portal vein. There is no right hydronephrosis. US/US gall bladder IMPRESSION: 1. Distended gallbladder containing sludge and cholelithiasis. No sonographic evidence of acute cholecystitis. 2. Abnormally dilated common bile duct. Impression dictated by: Keith Mcdonald Jr., M.D.07/10/2021 4:08 PM Dictation Location: [place] [address] Tech: Niya Orozco Transcribed By: ROVERTO 07/10/21 1608 Dictated By: Keith Mcdonald Jr, MD 07/10/21 1603 Signed By: 07/10/[address] [facility] Urine Cultureon 07-10-2021 Bacteria identified Cx Nom (U) 20,000 colonies/ml mixed bacterial skin contaminants 2 Days PERFORMED BY: [place] [address] PATHOLOGIST TUBE TRAILER FILLER CORY YAN M.D. [facility] Comment on above: Performed By: #### L DH, ADDONUAPLUS, CUU, CMP, CBC, URIC #### [facility] [address] [place] [address] [place] Dipstick and Microscopicon 1 09-09-2020 Appearance (U) Clear Normal Clear [facility] Comment on above: Order Comment: Reaso n for Exam 30 weeks gestation of ;Elevated blood pressure affe Performed By: #### L DH, ADDONUAPLUS, CUU, CMP, CBC, URIC #### [facility] [address] Bacteria,Urine None Seen Normal None Seen [facility] Comment on above: Order Comment: Reaso n for Exam 30 weeks gestation of ;Elevated blood pressure affe Performed By: #### L DH, ADDONUAPLUS, CUU, CMP, CBC, URIC #### [facility] [address] [place] [address] Bilirubin,Urine 3+ High Negative [facility] Comment on above: Order Comment: Reaso n for Exam 30 weeks gestation of ;Elevated blood pressure affe Performed By: #### L DH, ADDONUAPLUS, CUU, CMP, CBC, URIC #### [facility] [address] Calcium Oxalate Crystals,Urine 4+ Normal [facility] Comment on above: Order Comment: Reaso n for Exam 30 weeks gestation of ;Elevated blood pressure affe Performed By: #### L DH, ADDONUAPLUS, CUU, CMP, CBC, URIC #### [facility] [address] [place] [address] [place] Color (U) Dark Yellow Critically abnormal Yellow [facility] Comment on above: Order Comment: Reaso n for Exam 30 weeks gestation of ;Elevated blood pressure affe Performed By: #### L DH, ADDONUAPLUS, CUU, CMP, CBC, URIC #### [facility] [address] Glucose Ql (U) Normal Normal Normal [facility] Comment on above: Order Comment: Reaso n for Exam 30 weeks gestation of ;Elevated blood pressure affe Performed By: #### L DH, ADDONUAPLUS, CUU, CMP, CBC, URIC #### [facility] [address] Hyaline Casts,Urine 5-9 High 0-1 [facility] Comment on above: Order Comment: Reaso n for Exam 30 weeks gestation of ;Elevated blood pressure affe Performed By: #### L DH, ADDONUAPLUS, CUU, CMP, CBC, URIC #### [facility] [address] Ketones Ql (U) Trace High Negative [facility] Comment on above: Order Comment: Reaso n for Exam 30 weeks gestation of ;Elevated blood pressure affe Performed By: #### L DH, ADDONUAPLUS, CUU, CMP, CBC, URIC #### [facility] [address] [place] [address] Leukocyte esterase Test strip Ql (U) Negative Normal Negative [facility] Comment on above: Order Comment: Reaso n for Exam 30 weeks gestation of ;Elevated blood pressure affe Performed By: #### L DH, ADDONUAPLUS, CUU, CMP, CBC, URIC #### [facility] [address] Mucus,Urine 4+ Critically abnormal [facility] Comment on above: Order Comment: Reaso n for Exam 30 weeks gestation of ;Elevated blood pressure affe Performed By: #### L DH, ADDONUAPLUS, CUU, CMP, CBC, URIC #### [facility] [address] Nitrite,Urine Negative Normal Negative [facility] Comment on above: Order Comment: Reaso n for Exam 30 weeks gestation of ;Elevated blood pressure affe Performed By: #### L DH, ADDONUAPLUS, CUU, CMP, CBC, URIC #### [facility] [address] Occult Blood,Urine Negative Normal Negative [facility] Comment on above: Order Comment: Reaso n for Exam 30 weeks gestation of ;Elevated blood pressure affe Performed By: #### L DH, ADDONUAPLUS, CUU, CMP, CBC, URIC #### [facility] [address] [place] [address] [place] Othe Crystals,Urine None Seen Normal [facility] Comment on above: Order Comment: Reaso n for Exam 30 weeks gestation of ;Elevated blood pressure affe Performed By: #### L DH, ADDONUAPLUS, CUU, CMP, CBC, URIC #### [facility] [address] Other Casts,Urine None Seen Normal None Seen [facility] Comment on above: Order Comment: Reaso n for Exam 30 weeks gestation of ;Elevated blood pressure affe Performed By: #### L DH, ADDONUAPLUS, CUU, CMP, CBC, URIC #### [facility] [address] [place] [address] pH (U) 5.5 [pH] Normal 5.0-9.0 [facility] Comment on above: Order Comment: Reaso n for Exam 30 weeks gestation of ;Elevated blood pressure affe Performed By: #### L DH, ADDONUAPLUS, CUU, CMP, CBC, URIC #### [facility] [address] [place] [address] Protein,Urine Trace High Negative [facility] Comment on above: Order Comment: Reaso n for Exam 30 weeks gestation of ;Elevated blood pressure affe Performed By: #### L DH, ADDONUAPLUS, CUU, CMP, CBC, URIC #### [facility] [address] [place] [address] [place] RBC,Urine 5-9 High 0-4 [facility] Comment on above: Order Comment: Reaso n for Exam 30 weeks gestation of ;Elevated blood pressure affe Performed By: #### L DH, ADDONUAPLUS, CUU, CMP, CBC, URIC #### [facility] [address] [place] [address] Specificy [place],Urine 1.030 Normal 1.001-1.030 [facility] Comment on above: Order Comment: Reaso n for Exam 30 weeks gestation of ;Elevated blood pressure affe Performed By: #### L DH, ADDONUAPLUS, CUU, CMP, CBC, URIC #### [facility] [address] Squamous Epithelial Cell,Urine 1-2 Normal 0-2 [facility] Comment on above: Order Comment: Reaso n for Exam 30 weeks gestation of ;Elevated blood pressure affe Performed By: #### L DH, ADDONUAPLUS, CUU, CMP, CBC, URIC #### [facility] [address] Urobilinogen,Urine Normal Normal Normal [facility] Comment on above: Order Comment: Reaso n for Exam 30 weeks gestation of ;Elevated blood pressure affe Performed By: #### L DH, ADDONUAPLUS, CUU, CMP, CBC, URIC #### [facility] [address] [place] [id number] [facility] WBC,Urine 1-2 Normal 0-4 [facility] Comment on above: Order Comment: Reaso n for Exam 30 weeks gestation of ;Elevated blood pressure affe Performed By: #### L DH, ADDONUAPLUS, CUU, CMP, CBC, URIC #### [facility] [address] ECG 12 lead ECGon 07-09-2021 ECG 12 lead ECG [facility] [place] [address] Electrocardiograph Report Signed Patient: Siva Weems MR#: [id number] 13 : 1995 Acct:[id number] Age/Sex: 25 / F ADM Date: 07/09/21 Loc: ER Room: Type: [facility] ER Attending Dr: Ordering Provider: Ky Payne DO Date of Service: 07/09/2101/22/1634 ECG/ECG 12 lead ECG: Abdominal Pain Copies to: Test Reason : Blood Pressure : 175/101 mmHG Vent. Rate : 107 BPM Atrial Rate : 107 BPM P-R Int : 166 ms QRS Dur : 078 ms QT Int : 328 ms P-R-T Axes : 038 053 046 degrees QTc Int : 437 ms Sinus tachycardia Otherwise normal ECG No previous ECGs available Confirmed by LAURENT SHI DO ([id number]) on 07/11/2021 12:30:48 PM Referred By: Electronically Signed By:LAURENT SHI DO Transcribed By: MUS Signed By Laurent Shi DO 07/11 1230 Normal [facility] HCG,Urineon 07-09-2021 Beta HCG ( test) Ql (U) Negative Normal [facility] Comment on above: Order Comment: Reaso n for Exam 30 weeks gestation of ;Elevated blood pressure affe Result Comment: PERF ORMED BY: [place] [address] PATHOLOGIST TUBE TRAILER FILLER CORY YAN M.D. Performed By: #### L DH, ADDONUAPLUS, CUU, CMP, CBC, URIC #### [address] Complete Blood Count Auto Di ffon 03-23-2021 Basophils (Bld) [#/Vol] 0.0 10*3/uL Normal 0.0-0.2 [facility] Comment on above: Result Comment: PERF ORMED BY: [place] [address] PATHOLOGIST TUBE TRAILER FILLER CORY YAN M.D. Performed By: #### L DH, ADDONUAPLUS, CUU, CMP, CBC, URIC #### [address] Basophils/100 WBC (Bld) 0.2 % Normal . [facility] Comment on above: Performed By: #### L DH, ADDONUAPLUS, CUU, CMP, CBC, URIC #### [facility] [address] [place] [address] Eosinophils (Bld) [#/Vol] 0.0 10*3/uL Normal 0.0-0.45 [facility] Comment on above: Performed By: #### L DH, ADDONUAPLUS, CUU, CMP, CBC, URIC #### [address] Eosinophils/100 WBC (Bld) 0.0 % Normal . [facility] Comment on above: Performed By: #### L DH, ADDONUAPLUS, CUU, CMP, CBC, URIC #### [address] Erythrocyte distribution width (RBC) [Ratio] 16.1 % High 11.9-15.3 [facility] Comment on above: Performed By: #### L DH, ADDONUAPLUS, CUU, CMP, CBC, URIC #### [address] Hematocrit (Bld) [Volume fraction] 31.6 % Low 34.0-46.4 [facility] Comment on above: Performed By: #### L DH, ADDONUAPLUS, CUU, CMP, CBC, URIC #### [address] Hemoglobin (Bld) [Mass/Vol] 10.7 g/dL Low 11.8-15.4 [facility] Comment on above: Performed By: #### L DH, ADDONUAPLUS, CUU, CMP, CBC, URIC #### [address] Lymphocytes (Bld) [#/Vol] 0.7 10*3/uL Low 1.00-4.8 [facility] Comment on above: Performed By: #### L DH, ADDONUAPLUS, CUU, CMP, CBC, URIC #### [address] Lymphocytes/100 WBC (Bld) 3.7 % Normal . [facility] Comment on above: Performed By: #### L DH, ADDONUAPLUS, CUU, CMP, CBC, URIC #### [address] MCH (RBC) [Entitic mass] 27.8 pg Normal 24.7-34.3 [facility] Comment on above: Performed By: #### L DH, ADDONUAPLUS, CUU, CMP, CBC, URIC #### [address] MCV (RBC) [Entitic vol] 82.3 fL Normal 80-100 [facility] Comment on above: Performed By: #### L DH, ADDONUAPLUS, CUU, CMP, CBC, URIC #### [address] Mean Corpuscular HGB Conc 33.8 g/dL Normal 32.0-35.0 [facility] Comment on above: Performed By: #### L DH, ADDONUAPLUS, CUU, CMP, CBC, URIC #### [address] Monocytes (Bld) [#/Vol] 0.4 10*3/uL Normal 0.0-0.8 [facility] Comment on above: Performed By: #### L DH, ADDONUAPLUS, CUU, CMP, CBC, URIC #### [address] Monocytes/100 WBC (Bld) 2.0 % Normal . [facility] Comment on above: Performed By: #### L DH, ADDONUAPLUS, CUU, CMP, CBC, URIC #### [address] Neutrophils (Bld) [#/Vol] 18.0 10*3/uL High 1.8-7.7 [facility] Comment on above: Performed By: #### L DH, ADDONUAPLUS, CUU, CMP, CBC, URIC #### [address] Neutrophils/100 WBC (Bld) 94.1 % Normal . [facility] Comment on above: Performed By: #### L DH, ADDONUAPLUS, CUU, CMP, CBC, URIC #### [place] [address] [place] Nucleated RBC/100 WBC (Bld) [Ratio] 0.1 % Normal 0-0.5 [facility] Comment on above: Performed By: #### L DH, ADDONUAPLUS, CUU, CMP, CBC, URIC #### [address] Platelet mean volume (Bld) [Entitic vol] 8.6 fL Normal 6.3-10.7 [facility] Comment on above: Performed By: #### L DH, ADDONUAPLUS, CUU, CMP, CBC, URIC #### [facility] [address] Platelets (Bld) [#/Vol] 214 10*3/uL Normal 150-450 [facility] Comment on above: Performed By: #### L DH, ADDONUAPLUS, CUU, CMP, CBC, URIC #### [facility] [address] RBC (Bld) [#/Vol] 3.85 10*6/uL Normal 3.60-5.00 [facility] Comment on above: Performed By: #### L DH, ADDONUAPLUS, CUU, CMP, CBC, URIC #### [address] WBC (Bld) [#/Vol] 19.1 10*3/uL High 4.5-11.0 [facility] Comment on above: Performed By: #### L DH, ADDONUAPLUS, CUU, CMP, CBC, URIC #### [address] 03-22-2021 L -- ---- Specimen: [id number] Received: 03/23/21 Status: EDI Enrique Num: [id number] Spec Type: Surgical Subm Dr: KEHINDE OSUNA DO Tissues: A Placenta - 3rd Trimester (Greater than 28 weeks) (PLACENTA WITH CORD) B Uterine fibroids (PEDUNCULATED SUBSEROSAL FIBR) Procedures: HE Stain/8, Gross/Micro L5, Gross/Micro L4 ---- Patient Age/Sex Location Account Attending Physician ---- Siva Weems 25/F 3S [id number] KEHINDE OSUNA DO ---- SPEC NUM: [id number] RECD: 03/23/21 STATUS: EDI ENRIQUE NUM: [id number] CIARA: 03/22/[address] [facility] [address]: KEHINDE OSUNA DO ENTERED: 03/23/21 NEDA : RAZIA TYPE: Surgical DEPT: S ORDERED: HE Stain/8, Gross/Micro L5, Gross/Micro L4 ORDERED: HE Stain/8, Gross/Micro L5, Gross/Micro L4 Pathological Diagnosis A. Placenta: - Mature, ordaz, third trimester placenta with infarctions and hemorrhage comprising 5% of the placental volume. - Placental disc weights 488 g. - Marginally attached placental membranes without significant pathologic findings. - Trivascular umbilical cord without significant pathologic findings. B. Pedunculated subserosal fibroid from uterus , removal: - Leiomyoma with degenerative changes. Clinical Information IUP 38 weeks 5 days, gestational hypertension, delivery of viable female Gross Description A. Received in formalin labeled with the patient's name, number and placenta with cord is a 19 x 18.5 x 2.4 cm slightly irregular shaped ordaz placenta. The marginally inserted izquierdo-pink, thin and translucent membranes are disrupted and a point of rupture is indeterminate. Eccentrically located, 4 cm to the disc edge is a 15.5 cm in length x 1.7 cm in diameter izquierdo, coiled and trivascular umbilical cord. The surface is pink-purple and well vascularized. The maternal surface is intact and complete with no obvious missing cotyledons. There is loosely adherent dark red gelatinous blood clot. The placenta is 488 g after removal of the umbilical cord and membranes. Sectioning reveals dark red spongy ---- Specimen: [id number] Received: 03/23/21 Status: EDI Enrique Num: [id number] Spec Type: Surgical Subm Dr: KEHINDE OSUNA DO Tissues: A Placenta - 3rd Trimester (Greater than 28 weeks) (PLACENTA WITH CORD) B Uterine fibroids (PEDUNCULATED SUBSEROSAL FIBR) Procedures: HE Stain/8, Gross/Micro L5, Gross/Micro L4 ---- Patient: DankSiva [id number] (Continued) ---- Specimen: [id number] Received: 03/23/21 (Continued) Gross Description (Continued) Signed (signature on file) Hannah Wilson MD 03/26/21 1444 ---- Specimen: Received: 03/23/21 Status: EDI Enrique Num: [id number] Spec Type: Surgical Subm Dr: KEHINDE OSUNA DO Tissues: A Placenta - 3rd Trimester (Greater than 28 weeks) (PLACENTA WITH CORD) B Uterine fibroids (PEDUNCULATED SUBSEROSAL FIBR) Procedures: HE Stain/8, Gross/Micro L5, Gross/Micro L4 ---- Patient: Siva Weems [id number] (Continued) ---- Specimen: Received: 03/23/21 (Continued) Gross Description (Continued) parenchyma with multiple izquierdo, laminated and solid lesions identified. These lesions range from 0.6 cm to 1.4 cm. These lesions clear the disc edge by at least 2 cm and comprises less than 5% of the disc volume. Also received within the specimen container is a 6 x 6 x 2 cm aggregate of red gelatinous blood clot. Data Designer sections are submitted in 5 cassettes as follows: A1 - end of umbilical cord and membrane roll A2 - Maternal end of umbilical cord and membrane roll A3 - Central A4 - Peripheral A5 - Lesions (SM/NM) B. Received in formalin labeled with the patient's name, number and pedunculated subserosal fibroid from uterus is a 55.9 g, 8.6 x 3.8 x 3.5 cm peritonealized, izquierdo-pink rubbery and slightly bilobulated appearing tissue fragments. The peritonealized surface has focal adhesions. Sectioning reveals izquierdo-pink to dennis, slightly necrotic whorled cut surfaces (more content not included)... Normal [facility] ABO/Rh Retypeon 03-21-2021 ABO/RH Recheck Result Positive Normal [facility] Comment on above: Result Comment: PERF ORMED BY: [facility] [address] [place] [address] PATHOLOGIST TUBE TRAILER FILLER CORY YAN M.D. COVID-19 Antigenon 1 COVID-19 Antigen Healthcare Worker?: N Sadie Reference Sadie Reference Negative SARS-CoV+SARS-CoV-2 (COVID-19) Ag [Presence] in Respiratory specimen by Rapid immunoassay Negative for SARS Antigen by HUGH COVID19 Blank Space Sadie Disclaimer Negative results, from patients with symptom Sadie Disclaimer onset beyond five days, should be treated as Sadie Disclaimer presumptive and confirmation with a molecular Sadie Disclaimer assay, if necessary, for patient management, Sadie Disclaimer may be performed. Negative results do not rule Sadie Disclaimer out COVID-19 and should not be used as the sole Sadie Disclaimer basis for treatment or patient management Sadie Disclaimer decisions, including infection control decisions. Sadie Disclaimer Negative results should be considered in the Sadie Disclaimer context of a patient's recent exposures, history Sadie Disclaimer and the presence of clinical signs and symptoms Sadie Disclaimer consistent with COVID-19. COVID19 Blank Space Sadie Disclaimer The Sadie SARS Antigen HUGH does not differentiate Sadie Disclaimer between SARS-CoV and SARS-CoV-2. COVID19 Blank Space Sadie Disclaimer This test was developed and its performance Sadie Disclaimer characteristic determined by [facility] and Sadie Disclaimer validated at [facility]. This Sadie Disclaimer test has not been FDA cleared or approved. This Sadie Disclaimer test has been authorized by FDA under an Emergency Use Sadie Disclaimer Authorization (EUA). This test has been validated Sadie Disclaimer in accordance with the FDA's Guidance Document (Policy Sadie Disclaimer for Diagnostics Testing in Laboratories Certified to Sadie Disclaimer Perform High Complexity Testing under CLIA prior to Sadie Disclaimer Emergency Use Authorization for Coronavirus Sadie Disclaimer isease-2019 during the Public Health Emergency) Sadie Disclaimer issued on November 04, 2019. This test is only authorized Sadie Disclaimer for the duration of time the declaration that Sadie Disclaimer circumstances exist justifying the authorization of Sadie Disclaimer the emergency use of in vitro diagnostic tests for Sadie Disclaimer detection of SARS-CoV-2 virus and/or diagnosis of Sadie Disclaimer COVID-19 infection under section 564(b)(1) of the Sadie Disclaimer Act, 21 U.S.C. 360bbb-3(b)(1), unless the Sadie Disclaimer authorization is terminated or revoked sooner. PERFORMED BY: [place] [address] PATHOLOGIST TUBE TRAILER FILLER CORY YAN M.D. Normal [facility] Comment on above: Performed By: #### O REID LEONGN, UA #### [address] Complete Blood Count Auto Di ffon 03-21-2021 Basophils (Bld) [#/Vol] 0.1 10*3/uL Normal 0.0-0.2 [facility] Comment on above: Result Comment: PERF ORMED BY: [place] [address] PATHOLOGIST TUBE TRAILER FILLER CORY YAN M.D. Performed By: #### O DIRK LEONG, UA #### [address] Basophils/100 WBC (Bld) 0.4 % Normal . [facility] Comment on above: Performed By: #### O REID LEONGN, UA #### [address] Eosinophils (Bld) [#/Vol] 0.2 10*3/uL Normal 0.0-0.45 [facility] Comment on above: Performed By: #### O REID LEONGN, UA #### [address] Eosinophils/100 WBC (Bld) 1.8 % Normal . [facility] Comment on above: Performed By: #### O REID LEONGN, UA #### [address] Erythrocyte distribution width (RBC) [Ratio] 15.9 % High 11.9-15.3 [facility] Comment on above: Performed By: #### O REID LEONGN, UA #### [address] Hematocrit (Bld) [Volume fraction] 35.9 % Normal 34.0-46.4 [facility] Comment on above: Performed By: #### O DIRK LEONG UA #### [address] Hemoglobin (Bld) [Mass/Vol] 12.2 g/dL Normal 11.8-15.4 [facility] Comment on above: Performed By: #### O DIRK LEONG UA #### [address] Lymphocytes (Bld) [#/Vol] 1.8 10*3/uL Normal 1.00-4.8 [facility] Comment on above: Performed By: #### O DIRK LEONG UA #### [address] Lymphocytes/100 WBC (Bld) 13.5 % Normal . [facility] Comment on above: Performed By: #### O DIRK LEONG UA #### [address] MCH (RBC) [Entitic mass] 27.7 pg Normal 24.7-34.3 [facility] Comment on above: Performed By: #### O DIRK LEONG UA #### [address] MCV (RBC) [Entitic vol] 81.7 fL Normal 80-100 [facility] Comment on above: Performed By: #### O DIRK LEONG UA #### [address] Mean Corpuscular HGB Conc 33.9 g/dL Normal 32.0-35.0 [facility] Comment on above: Performed By: #### O DIRK LEONG UA #### [address] Monocytes (Bld) [#/Vol] 0.8 10*3/uL Normal 0.0-0.8 [facility] Comment on above: Performed By: #### O DIRK LEONG UA #### [facility] [address] [place] [address] [place] Monocytes/100 WBC (Bld) 5.9 % Normal . [facility] Comment on above: Performed By: #### O REID LEONGN, UA #### [facility] [address] [place] [address] [place] Neutrophils (Bld) [#/Vol] 10.4 10*3/uL High 1.8-7.7 [facility] Comment on above: Performed By: #### O REID LEONGN, UA #### [facility] [address] [place] [address] [place] Neutrophils/100 WBC (Bld) 78.4 % Normal . [facility] Comment on above: Performed By: #### O DIRK LEONG, UA #### [facility] [address] Nucleated RBC/100 WBC (Bld) [Ratio] 0.1 % Normal 0-0.5 [facility] Comment on above: Performed By: #### O DIRK LEONG, UA #### [facility] [address] [place] [address] [place] Platelet mean volume (Bld) [Entitic vol] 8.6 fL Normal 6.3-10.7 [facility] Comment on above: Performed By: #### O REID LEONGN, UA #### [facility] [address] [place] [address] [place] Platelets (Bld) [#/Vol] 233 10*3/uL Normal 150-450 [facility] Comment on above: Performed By: #### O REID LEONGN, UA #### [facility] [address] [place] [address] [place] RBC (Bld) [#/Vol] 4.39 10*6/uL Normal 3.60-5.00 [facility] Comment on above: Performed By: #### O REID LEONGN, UA #### [facility] [address] [place] [address] [place] WBC (Bld) [#/Vol] 13.2 10*3/uL High 4.5-11.0 [facility] Comment on above: Performed By: #### O BUDS, FFN, UA #### [facility] [address] [place] [address] [place] Dipstick and Microscopicon 0 03-21-2021 Appearance (U) Clear Normal Clear [facility] Comment on above: Order Comment: Comme nt patients 22 - 34 6/7 weeks prior to vaginal exam Performed By: #### O BUDS, FFN, UA #### [facility] [address] [place] [address] [place] Bacteria,Urine None Seen Normal None Seen [facility] Comment on above: Order Comment: Comme nt patients 22 - 34 6/7 weeks prior to vaginal exam Performed By: #### O BUDS, FFN, UA #### [facility] [address] [place] [address] [place] Bilirubin,Urine Negative Normal Negative [facility] Comment on above: Order Comment: Comme nt patients 22 - 34 6/7 weeks prior to vaginal exam Performed By: #### O BUDS, FFN, UA #### [facility] [address] [place] [address] [place] Color (U) Yellow Normal Yellow [facility] Comment on above: Order Comment: Comme nt patients 22 - 34 6/7 weeks prior to vaginal exam Performed By: #### O BUDS, FFN, UA #### [facility] [address] [place] [address] [place] Glucose Ql (U) Normal Normal Normal [facility] Comment on above: Order Comment: Comme nt patients 22 - 34 6/7 weeks prior to vaginal exam Performed By: #### O BUDS, FFN, UA #### [facility] [address] [place], [place] [address] [place] Hyaline Casts,Urine 0-8 Normal 0-8 [facility] Comment on above: Order Comment: Comme nt patients 22 - 34 6/7 weeks prior to vaginal exam Result Comment: PERF ORMED BY: [place] [address] PATHOLOGIST TUBE TRAILER FILLER CORY YAN M.D. Performed By: #### O BUDS, FFN, UA #### [facility] [address] [place] [address] Ketones Ql (U) Negative Normal Negative [facility] Comment on above: Order Comment: Comme nt patients 22 - 34 6/7 weeks prior to vaginal exam Performed By: #### O BUDS, FFN, UA #### [address] Leukocyte esterase Test strip Ql (U) 2+ High Negative [facility] Comment on above: Order Comment: Comme nt patients 22 - 34 6/7 weeks prior to vaginal exam Performed By: #### O BUDS, FFN, UA #### [address] Nitrite,Urine Negative Normal Negative [facility] Comment on above: Order Comment: Comme nt patients 22 - 34 6/7 weeks prior to vaginal exam Performed By: #### O BUDS, FFN, UA #### [address] Occult Blood,Urine Negative Normal Negative [facility] Comment on above: Order Comment: Comme nt patients 22 - 34 6/7 weeks prior to vaginal exam Result Comment: PERF ORMED BY: [place] [address] PATHOLOGIST TUBE TRAILER FILLER CORY YAN M.D. Performed By: #### O BUDS, FFN, UA #### [address] pH (U) 6.5 [pH] Normal 5.0-9.0 [facility] Comment on above: Order Comment: Comme nt patients 22 - 34 6/7 weeks prior to vaginal exam Performed By: #### O BUDS, FFN, UA #### [address] Protein,Urine Trace High Negative [facility] Comment on above: Order Comment: Comme nt patients 22 - 34 6/7 weeks prior to vaginal exam Performed By: #### O BUDS, FFN, UA #### [address] RBC,Urine 1-2 Normal 0-4 [facility] Comment on above: Order Comment: Comme nt patients 22 - 34 6/7 weeks prior to vaginal exam Performed By: #### O BUDS, FFN, UA #### [facility] [address] [place] [address] Specificy [place],Urine 1.023 Normal 1.001-1.030 [facility] Comment on above: Order Comment: Comme nt patients 22 - 34 6/7 weeks prior to vaginal exam Performed By: #### O BUDS, FFN, UA #### [facility] [address] [place] [address] Squamous Epithelial Cell,Urine 3-4 High 0-2 [facility] Comment on above: Order Comment: Comme nt patients 22 - 34 6/7 weeks prior to vaginal exam Performed By: #### O BUDS, FFN, UA #### [facility] [address] [place] [address] Urobilinogen,Urine Normal Normal Normal [facility] Comment on above: Order Comment: Comme nt patients 22 - 34 6/7 weeks prior to vaginal exam Performed By: #### O BUDS, FFN, UA #### [facility] [address] [place] [address] WBC,Urine 10-19 High 0-4 [facility] Comment on above: Order Comment: Comme nt patients 22 - 34 6/7 weeks prior to vaginal exam Performed By: #### O BUDS, FFN, UA #### [facility] [address] [place] [address] OB Urine Drug Screen (NO THC )on 03-21-2021 Amphetamine Screen,Urine Negative Normal Negative [facility] Comment on above: Performed By: #### O BUDS, FFN, UA #### [facility] [address] [place] [address] Barbiturate Screen,Urine Negative Normal Negative [facility] Comment on above: Performed By: #### O BUDS, FFN, UA #### [facility] [address] [place] [address] Benzodiazepines Screen,Urine Negative Normal Negative [facility] Comment on above: Performed By: #### O BUDS, FFN, UA #### [address] Cocaine Screen,Urine Negative Normal Negative [facility] Comment on above: Performed By: #### O BUDS FFN, UA #### [address] Opiate Screen,Urine Negative Normal Negative [facility] Comment on above: Performed By: #### O SALO, FFN, UA #### [address] Phencyclidine Screen, Urine Negative Normal Negative [facility] Comment on above: Result Comment: Thes e are unconfirmed results and should not be used for legal purposes. Drug Cut-Off Concentration: AMPH 1000 ng/mL WILLIAM 200 ng/mL JUNE 200 ng/mL COCM 300 ng/mL OP 300 ng/mL PCP 25 ng/mL PERFORMED BY: [place] [address] PATHOLOGIST TUBE TRAILER FILLER CORY YAN M.D. Performed By: #### O SALO Luzma, UA #### [address] RPR w/rfx to Quant TP Abson 03-21-2021 RPR, Rfx Quant RPR Non-Reactive Normal Non Reactive [facility] Comment on above: Result Comment: Perf ormed at: - [facility] [address] [id number] Econometrician: Augustine Layton PhD, Phone: [phone] PERFORMED BY: [place] [address] PATHOLOGIST TUBE TRAILER FILLER CORY YAN M.D. Performed By: #### O REID LEONGN, UA #### [address] Sadie Ag Negativeon 03-21-20 21 Sadie Ag Negative Negative Normal Negative [facility] Comment on above: Result Comment: This is a duplicate Sadie SARS Antigen (HUGH) result to be used for statistical tracking purpose only. PERFORMED BY: [address] [place] [address] PATHOLOGIST TUBE TRAILER FILLER CORY YAN M.D. Performed By: #### O SALO FFN, UA #### [facility] [address] [place] [address] [place] Type and Screenon 03-21-2021 ABO and Rh group Nom (Bld) Blood group A Rh(D) positive Normal [facility] Comment on above: Result Comment: PERF ORMED BY: [place] [address] PATHOLOGIST TUBE TRAILER FILLER CORY YAN M.D. Urine Cultureon 03-21-2021 Bacteria identified Cx Nom (U) 50,000 colonies/ml mixed bacterial skin contaminants 2 Days PERFORMED BY: [address] [place] [address] PATHOLOGIST TUBE TRAILER FILLER CORY YAN M.D. [facility] Comment on above: Performed By: #### O SALO FFN, UA #### [facility] [address] [place], [place] [address] [facility] Protein, 24 Hr Urineon 03-07 Protein (U) [Mass/Vol] 12 mg/dL High 0-9 [facility] Comment on above: Order Comment: Comme nt patients 22 - 34 6/7 weeks prior to vaginal exam Performed By: #### O SALO FFN, UA #### [facility] [address] [place], [place] [address] [facility] Total Protein 24 Hour Urine 156 High 50-100 [facility] Comment on above: Order Comment: Comme nt patients 22 - 34 6/7 weeks prior to vaginal exam Performed By: #### O BUDS, FFN, UA #### [facility] [address] [place] [address] [place] U24 Ciara Time and Volon 08- Total Volume, Urine 1300 Normal [facility] Comment on above: Order Comment: Comme nt patients 22 - 34 6/7 weeks prior to vaginal exam Result Comment: PERF ORMED BY: [place] [address] PATHOLOGIST TUBE TRAILER FILLER CORY YAN M.D. Performed By: #### O BUDS, FFN, UA #### [facility] [address] [place] [address] Urine Collection Time 24 Normal [facility] Comment on above: Order Comment: Comme nt patients 22 - 34 6/7 weeks prior to vaginal exam Performed By: #### O BUDS, FFN, UA #### [address] Complete Blood Count Auto Di ffon 03-06-2021 Basophils (Bld) [#/Vol] 0.1 10*3/uL Normal 0.0-0.2 [facility] Comment on above: Order Comment: Reaso n for Exam Elevated blood pressure reading Result Comment: PERF ORMED BY: [place] [address] PATHOLOGIST TUBE TRAILER FILLER CORY YAN M.D. Performed By: #### O BUDS, FFN, UA #### [facility] [address] [place] [address] Basophils/100 WBC (Bld) 0.6 % Normal . [facility] Comment on above: Order Comment: Reaso n for Exam Elevated blood pressure reading Performed By: #### O BUDS, FFN, UA #### [facility] [address] [place] [address] Eosinophils (Bld) [#/Vol] 0.2 10*3/uL Normal 0.0-0.45 [facility] Comment on above: Order Comment: Reaso n for Exam Elevated blood pressure reading Performed By: #### O BUDS, FFN, UA #### [facility] [address] [place] [address] [place] Eosinophils/100 WBC (Bld) 1.1 % Normal . [facility] Comment on above: Order Comment: Reaso n for Exam Elevated blood pressure reading Performed By: #### O BUDS, FFN, UA #### [address] Erythrocyte distribution width (RBC) [Ratio] 15.2 % Normal 11.9-15.3 [facility] Comment on above: Order Comment: Reaso n for Exam Elevated blood pressure reading Performed By: #### O REID LEONGN, UA #### [facility] [address] [place] [address] Hematocrit (Bld) [Volume fraction] 36.4 % Normal 34.0-46.4 [facility] Comment on above: Order Comment: Reaso n for Exam Elevated blood pressure reading Performed By: #### O REID LEONGN, UA #### [facility] [address] [place] [address] Hemoglobin (Bld) [Mass/Vol] 12.2 g/dL Normal 11.8-15.4 [facility] Comment on above: Order Comment: Reaso n for Exam Elevated blood pressure reading Performed By: #### O DIRK LEONG, UA #### [facility] [address] [place] [address] [place] Lymphocytes (Bld) [#/Vol] 1.5 10*3/uL Normal 1.00-4.8 [facility] Comment on above: Order Comment: Reaso n for Exam Elevated blood pressure reading Performed By: #### O REID LEONGN, UA #### [facility] [address] [place] [address] Lymphocytes/100 WBC (Bld) 11.1 % Normal . [facility] Comment on above: Order Comment: Reaso n for Exam Elevated blood pressure reading Performed By: #### O REID LEONGN, UA #### [facility] [address] [place] [address] [place] MCH (RBC) [Entitic mass] 27.0 pg Normal 24.7-34.3 [facility] Comment on above: Order Comment: Reaso n for Exam Elevated blood pressure reading Performed By: #### O SALO FFN, UA #### [facility] [address] [place] [address] [place] MCV (RBC) [Entitic vol] 80.4 fL Normal 80-100 [facility] Comment on above: Order Comment: Reaso n for Exam Elevated blood pressure reading Performed By: #### O BUDS, FFN, UA #### [facility] [address] [place] [address] [place] Mean Corpuscular HGB Conc 33.6 g/dL Normal 32.0-35.0 [facility] Comment on above: Order Comment: Reaso n for Exam Elevated blood pressure reading Performed By: #### O BUDS, FFN, UA #### [facility] [address] [place] [address] [place] Monocytes (Bld) [#/Vol] 0.7 10*3/uL Normal 0.0-0.8 [facility] Comment on above: Order Comment: Reaso n for Exam Elevated blood pressure reading Performed By: #### O BUDS, FFN, UA #### [facility] [address] [place] [address] [place] Monocytes/100 WBC (Bld) 5.5 % Normal . [facility] Comment on above: Order Comment: Reaso n for Exam Elevated blood pressure reading Performed By: #### O BUDS, FFN, UA #### [facility] [address] [place] [address] [place] Neutrophils (Bld) [#/Vol] 11.1 10*3/uL High 1.8-7.7 [facility] Comment on above: Order Comment: Reaso n for Exam Elevated blood pressure reading Performed By: #### O BUDS, FFN, UA #### [facility] [address] [place] [address] [place] Neutrophils/100 WBC (Bld) 81.7 % Normal . [facility] Comment on above: Order Comment: Reaso n for Exam Elevated blood pressure reading Performed By: #### O BUDS, FFN, UA #### [facility] [address] [place], [place] [address] [place] Nucleated RBC/100 WBC (Bld) [Ratio] 0.0 % Normal 0-0.5 [facility] Comment on above: Order Comment: Reaso n for Exam Elevated blood pressure reading Performed By: #### O BUDS, FFN, UA #### [facility] [address] [place] [address] [place] Platelet mean volume (Bld) [Entitic vol] 7.9 fL Normal 6.3-10.7 [facility] Comment on above: Order Comment: Reaso n for Exam Elevated blood pressure reading Performed By: #### O BUDS FFN, UA #### [facility] [address] Platelets (Bld) [#/Vol] 257 10*3/uL Normal 150-450 [facility] Comment on above: Order Comment: Reaso n for Exam Elevated blood pressure reading Performed By: #### O BUDS, FFN, UA #### [address] RBC (Bld) [#/Vol] 4.52 10*6/uL Normal 3.60-5.00 [facility] Comment on above: Order Comment: Reaso n for Exam Elevated blood pressure reading Performed By: #### O BUDS, FFN, UA #### [facility] [address] [place] [address] WBC (Bld) [#/Vol] 13.6 10*3/uL High 4.5-11.0 [facility] Comment on above: Order Comment: Reaso n for Exam Elevated blood pressure reading Performed By: #### O BUDS, FFN, UA #### [facility] [address] [place] [address] Comprehensive Metabolic Pane humza 03-06-2021 Albumin [Mass/Vol] 2.5 g/dL Low 3.2-5.5 [facility] Comment on above: Order Comment: Reaso n for Exam Screening for metabolic disorder Reason for Exam Screening for lipid disorders Performed By: #### O BUDS, FFN, UA #### [facility] [address] [place] [address] Albumin/Globulin [Mass ratio] 0.7 {ratio} Normal [facility] Comment on above: Order Comment: Reaso n for Exam Screening for metabolic disorder Reason for Exam Screening for lipid disorders Performed By: #### O BUDS, FFN, UA #### [facility] [address] [place] [address] ALP [Catalytic activity/Vol] 125 U/L High 32-92 [facility] Comment on above: Order Comment: Reaso n for Exam Screening for metabolic disorder Reason for Exam Screening for lipid disorders Performed By: #### O DIRK LEONG, UA #### [facility] [address] [place] [address] [facility] ALT [Catalytic activity/Vol] 18 U/L Normal 10-60 [facility] Comment on above: Order Comment: Reaso n for Exam Screening for metabolic disorder Reason for Exam Screening for lipid disorders Performed By: #### O REID LEONGN, UA #### [facility] [address] AST [Catalytic activity/Vol] 19 U/L Normal 10-42 [facility] Comment on above: Order Comment: Reaso n for Exam Screening for metabolic disorder Reason for Exam Screening for lipid disorders Performed By: #### O DIRK LEONG, UA #### [facility] [address] Bilirubin [Mass/Vol] 0.5 mg/dL Normal 0.3-1.2 [facility] Comment on above: Order Comment: Reaso n for Exam Screening for metabolic disorder Reason for Exam Screening for lipid disorders Performed By: #### O DIRK LEONG, UA #### [facility] [address] Calcium [Mass/Vol] 8.9 mg/dL Normal 8.2-10.2 [facility] Comment on above: Order Comment: Reaso n for Exam Screening for metabolic disorder Reason for Exam Screening for lipid disorders Performed By: #### O REID LEONGN, UA #### [facility] [address] [place] [id number] [place] Chloride [Moles/Vol] 104 mmol/L Normal 95-114 [facility] Comment on above: Order Comment: Reaso n for Exam Screening for metabolic disorder Reason for Exam Screening for lipid disorders Performed By: #### O REID LEONGN, UA #### [facility] [address] [place] [address] [place] CO2 [Moles/Vol] 20.4 mmol/L Low 22.0-30.0 [facility] Comment on above: Order Comment: Reaso n for Exam Screening for metabolic disorder Reason for Exam Screening for lipid disorders Performed By: #### O SALO FFN, UA #### [facility] [address] Creatinine [Mass/Vol] 0.52 mg/dL Normal 0.44-1.03 [facility] Comment on above: Order Comment: Reaso n for Exam Screening for metabolic disorder Reason for Exam Screening for lipid disorders Performed By: #### O SALO FFN, UA #### [facility] [address] Estimated GFR ( Inge > 60 Normal [facility] Comment on above: Order Comment: Reaso n for Exam Screening for metabolic disorder Reason for Exam Screening for lipid disorders Result Comment: GFR estimated reference range: According to KDOQI guidelines, <60 ml/min/1.73m2 is sufficient to diagnose a patient with chronic kidney disease. Performed By: #### O SALO FFN, UA #### [facility] [address] Estimated GFR (Non- Am > 60 Normal [facility] Comment on above: Order Comment: Reaso n for Exam Screening for metabolic disorder Reason for Exam Screening for lipid disorders Performed By: #### O SALO FFN, UA #### [facility] [address] [place] [id number] [place] Globulin (S) [Mass/Vol] 3.8 g/dL Normal [facility] Comment on above: Order Comment: Reaso n for Exam Screening for metabolic disorder Reason for Exam Screening for lipid disorders Performed By: #### O SALO FFN, UA #### [facility] [address] Glucose [Mass/Vol] 92 mg/dL Normal 70-100 [facility] Comment on above: Order Comment: Reaso n for Exam Screening for metabolic disorder Reason for Exam Screening for lipid disorders Result Comment: [place] om Glucose Reference Range is dependent on time and content of last meal. Glucose of more than 200 mg/dL in a nonstressed, ambulatory subject supports the diagnosis of Diabetes Mellitus. ADA recommended reference range Performed By: #### O BUDS FFN, UA #### [facility] [address] [place] [id number] [facility] Potassium [Moles/Vol] 3.8 mmol/L Normal 3.5-5.1 [facility] Comment on above: Order Comment: Reaso n for Exam Screening for metabolic disorder Reason for Exam Screening for lipid disorders Performed By: #### O BUDS, FFN, UA #### [facility] [address] [place] [address] [place] Protein [Mass/Vol] 6.3 g/dL Normal 6.1-7.9 [facility] Comment on above: Order Comment: Reaso n for Exam Screening for metabolic disorder Reason for Exam Screening for lipid disorders Performed By: #### O BUDS, FFN, UA #### [facility] [address] Sodium [Moles/Vol] 135 mmol/L Low 136-146 [facility] Comment on above: Order Comment: Reaso n for Exam Screening for metabolic disorder Reason for Exam Screening for lipid disorders Performed By: #### O BUDS, FFN, UA #### [facility] [address] [place] [id number] [facility] Urea nitrogen [Mass/Vol] 7 mg/dL Low 9-23 [facility] Comment on above: Order Comment: Reaso n for Exam Screening for metabolic disorder Reason for Exam Screening for lipid disorders Performed By: #### O BUDS, FFN, UA #### [facility] [address] [place] [id number] [facility] Lipid Panelon 03-06-2021 Cholesterol [Mass/Vol] 241 mg/dL High 140-200 [facility] Comment on above: Order Comment: Reaso n for Exam Screening for metabolic disorder Reason for Exam Screening for lipid disorders Result Comment: Chol less than 200 mg/dl low risk Chol 201-239 mg/dl borderline risk Chol 240 mg/dl and greater high risk Performed By: #### O BUDS, FFN, UA #### [facility] [address] [place] [id number] [facility] Cholesterol in HDL [Mass/Vol] 47 mg/dL Normal 35-85 [facility] Comment on above: Order Comment: Reaso n for Exam Screening for metabolic disorder Reason for Exam Screening for lipid disorders Result Comment: HDL CHOL ATP-III CLASSIFICATION Cardiovascular Risk HDL > or equal to 60 mg/dL LOW HDL < 40 mg/dL HIGH Performed By: #### O DIRK LEONG, UA #### [facility] [address] Cholesterol.total/C holesterol in HDL [Mass ratio] 5.1 {ratio} Normal <5.0 [facility] Comment on above: Order Comment: Reaso n for Exam Screening for metabolic disorder Reason for Exam Screening for lipid disorders Result Comment: PERF ORMED BY: [place] [address] PATHOLOGIST TUBE TRAILER FILLER CORY YAN M.D. Performed By: #### O DIRK LEONG, JACOB #### [facility] [address] LDL Cholesterol,Calcula delfino 157 mg/dL High 0-100 [facility] Comment on above: Order Comment: Reaso n for Exam Screening for metabolic disorder Reason for Exam Screening for lipid disorders Result Comment: LDL ATP III CLASSIFICATION LDL less than 100 mg/dL Optimal LDL 100-129 mg/dL Near or above optimal LDL 130-159 mg/dL Borderline high LDL 160-189 mg/dL High LDL greater than 189 mg/dL Very high Performed By: #### O DIRK LEONG, UA #### [facility] [address] Triglyceride w/Reflex 186 mg/dL High 35-149 [facility] Comment on above: Order Comment: Reaso n for Exam Screening for metabolic disorder Reason for Exam Screening for lipid disorders Result Comment: TRIG ATP III CLASSIFICATION TRIG less than 150 mg/dL Normal TRIG 150-199 mg/dL Borderline high TRIG 200-500 mg/dL High TRIG greater than 500 mg/dL Very high Standard traceable to the Center for Disease Conrtrol and Prevention (CDC) test method. Performed By: #### O DIRK LEONG, UA #### [facility] [address] VLDL CHOLESTEROL 37 mg/dL Normal [facility] Comment on above: Order Comment: Reaso n for Exam Screening for metabolic disorder Reason for Exam Screening for lipid disorders Performed By: #### O DIRK LEONG, UA #### [facility] [address] [place] [address] Strep B Cultureon 03-05-2021 Strep B Culture Reason for Exam 36 weeks gestation of ; screening for stre Vaginal/Rectal ORGANISM: Strep. agalactiae Grp B (O:B) Quantity of Growth Heavy Growth PERFORMED BY: [place] [address] PATHOLOGIST TUBE TRAILER FILLER CORY YAN M.D. Normal [facility] Comment on above: Performed By: #### O DIRK LEONG, UA #### [address] Complete Blood Count Auto Di ffon 03-01-2021 Basophils (Bld) [#/Vol] 0.0 10*3/uL Normal 0.0-0.2 [facility] Comment on above: Result Comment: PERF ORMED BY: [place] [address] PATHOLOGIST TUBE TRAILER FILLER CORY YAN M.D. Performed By: #### O DIRK LEONG, UA #### [facility] [address] [place] [address] Basophils/100 WBC (Bld) 0.2 % Normal . [facility] Comment on above: Performed By: #### O REID LEONGN, UA #### [facility] [address] [place] [address] Eosinophils (Bld) [#/Vol] 0.2 10*3/uL Normal 0.0-0.45 [facility] Comment on above: Performed By: #### O REID LEONGN, UA #### [facility] [address] [place] [address] Eosinophils/100 WBC (Bld) 1.2 % Normal . [facility] Comment on above: Performed By: #### O REID LEONGN, UA #### [facility] [address] [place] [address] Erythrocyte distribution width (RBC) [Ratio] 15.5 % High 11.9-15.3 [facility] Comment on above: Performed By: #### O DIRK LEONG, UA #### [address] Hematocrit (Bld) [Volume fraction] 36.2 % Normal 34.0-46.4 [facility] Comment on above: Performed By: #### O REID LEONGN, UA #### [address] Hemoglobin (Bld) [Mass/Vol] 11.9 g/dL Normal 11.8-15.4 [facility] Comment on above: Performed By: #### O DIRK LEONG, UA #### [address] Lymphocytes (Bld) [#/Vol] 1.2 10*3/uL Normal 1.00-4.8 [facility] Comment on above: Performed By: #### O DIRK LEONG, UA #### [address] Lymphocytes/100 WBC (Bld) 8.5 % Normal . [facility] Comment on above: Performed By: #### O DIRK LEONG UA #### [address] MCH (RBC) [Entitic mass] 26.3 pg Normal 24.7-34.3 [facility] Comment on above: Performed By: #### O REID LEONGN, UA #### [address] MCV (RBC) [Entitic vol] 80.4 fL Normal 80-100 [facility] Comment on above: Performed By: #### O REID LEONGN, UA #### [address] Mean Corpuscular HGB Conc 32.7 g/dL Normal 32.0-35.0 [facility] Comment on above: Performed By: #### O REID LEONGN, UA #### [address] Monocytes (Bld) [#/Vol] 0.8 10*3/uL Normal 0.0-0.8 [facility] Comment on above: Performed By: #### O DIRK LEONG UA #### [facility] [address] Monocytes/100 WBC (Bld) 5.6 % Normal . [facility] Comment on above: Performed By: #### O DIRK LEONG, UA #### [facility] [address] Neutrophils (Bld) [#/Vol] 11.6 10*3/uL High 1.8-7.7 [facility] Comment on above: Performed By: #### O DIRK LEONG UA #### [facility] [address] [place] [address] Neutrophils/100 WBC (Bld) 84.5 % Normal . [facility] Comment on above: Performed By: #### O DIRK LEONG UA #### [facility] [address] [place] [address] [place] Nucleated RBC/100 WBC (Bld) [Ratio] 0.0 % Normal 0-0.5 [facility] Comment on above: Performed By: #### O DIRK LEONG UA #### [facility] [address] [place] [address] Platelet mean volume (Bld) [Entitic vol] 7.5 fL Normal 6.3-10.7 [facility] Comment on above: Performed By: #### O DIRK LEONG, UA #### [facility] [address] [place] [address] [place] Platelets (Bld) [#/Vol] 271 10*3/uL Normal 150-450 [facility] Comment on above: Performed By: #### O DIRK LEONG UA #### [facility] [address] [place] [address] [place] RBC (Bld) [#/Vol] 4.51 10*6/uL Normal 3.60-5.00 [facility] Comment on above: Performed By: #### O SALO FFN, UA #### [facility] [address] WBC (Bld) [#/Vol] 13.8 10*3/uL High 4.5-11.0 [facility] Comment on above: Performed By: #### O SALO FFN, UA #### [facility] [address] [place] [address] Comprehensive Metabolic Pane humza 03-01-2021 Albumin [Mass/Vol] 2.3 g/dL Low 3.2-5.5 [facility] Comment on above: Performed By: #### O REID LEONGN, UA #### [facility] [address] [place] [address] Albumin/Globulin [Mass ratio] 0.6 {ratio} Normal [facility] Comment on above: Performed By: #### O REID LEONGN, UA #### [facility] [address] [place] [address] ALP [Catalytic activity/Vol] 123 U/L High 32-92 [facility] Comment on above: Performed By: #### O SALO FFN, UA #### [facility] [address] [place] [address] ALT [Catalytic activity/Vol] 15 U/L Normal 10-60 [facility] Comment on above: Performed By: #### O SALO FFN, UA #### [facility] [address] [place] [address] AST [Catalytic activity/Vol] 16 U/L Normal 10-42 [facility] Comment on above: Performed By: #### O SALO FFN, UA #### [facility] [address] [place] [address] Bilirubin [Mass/Vol] 0.5 mg/dL Normal 0.3-1.2 [facility] Comment on above: Performed By: #### O SALO FFN, UA #### [facility] [address] [place] [address] Calcium [Mass/Vol] 8.6 mg/dL Normal 8.2-10.2 [facility] Comment on above: Performed By: #### O BUDS, FFN, UA #### [facility] [address] Chloride [Moles/Vol] 104 mmol/L Normal 95-114 [facility] Comment on above: Performed By: #### O BUDS, FFN, UA #### [facility] [address] CO2 [Moles/Vol] 19.9 mmol/L Low 22.0-30.0 [facility] Comment on above: Performed By: #### O BUDS, FFN, UA #### [address] Creatinine [Mass/Vol] 0.51 mg/dL Normal 0.44-1.03 [facility] Comment on above: Performed By: #### O BUDS, FFN, UA #### [address] Estimated GFR ( Inge > 60 Normal [facility] Comment on above: Result Comment: GFR estimated reference range: According to KDOQI guidelines, <60 ml/min/1.73m2 is sufficient to diagnose a patient with chronic kidney disease. Performed By: #### O BUDS, FFN, UA #### [address] Estimated GFR (Non- Am > 60 Normal [facility] Comment on above: Performed By: #### O BUDS, FFN, UA #### [address] Globulin (S) [Mass/Vol] 3.6 g/dL Normal [facility] Comment on above: Performed By: #### O BUDS, FFN, UA #### [address] Glucose [Mass/Vol] 93 mg/dL Normal 70-100 [facility] Comment on above: Result Comment: [place] Glucose Reference Range is dependent on time and content of last meal. Glucose of more than 200 mg/dL in a nonstressed, ambulatory subject supports the diagnosis of Diabetes Mellitus. ADA recommended reference range Performed By: #### O BUDS, FFN, UA #### [facility] [address] Potassium [Moles/Vol] 4.1 mmol/L Normal 3.5-5.1 [facility] Comment on above: Performed By: #### O BUDS, FFN, UA #### [address] Protein [Mass/Vol] 5.9 g/dL Low 6.1-7.9 [facility] Comment on above: Performed By: #### O BUDS, FFN, UA #### [address] Sodium [Moles/Vol] 134 mmol/L Low 136-146 [facility] Comment on above: Performed By: #### O BUDS, FFN, UA #### [address] Urea nitrogen [Mass/Vol] 6 mg/dL Low 9-23 [facility] Comment on above: Performed By: #### O BUDS, FFN, UA #### [address] Dipstick and Microscopicon 0 03-01-2021 Appearance (U) Cloudy Critically abnormal Clear [facility] Comment on above: Order Comment: Name Collection Type:: Clean-Voided Midstream Performed By: #### O BUDS, FFN, UA #### [address] Bacteria,Urine 2+ High None Seen [facility] Comment on above: Order Comment: Name Collection Type:: Clean-Voided Midstream Performed By: #### O BUDS, FFN, UA #### [place] [address] [place] Bilirubin,Urine Negative Normal Negative [facility] Comment on above: Order Comment: Name Collection Type:: Clean-Voided Midstream Performed By: #### O BUDS, FFN, UA #### [place] [address] [place] Color (U) Yellow Normal Yellow [facility] Comment on above: Order Comment: Name Collection Type:: Clean-Voided Midstream Performed By: #### O BUDS, FFN, UA #### [facility] [address] [place] [address] [place] Glucose Ql (U) Normal Normal Normal [facility] Comment on above: Order Comment: Name Collection Type:: Clean-Voided Midstream Performed By: #### O BUDS, FFN, UA #### [facility] [address] [place] [address] [place] Hyaline Casts,Urine None Seen Normal 0-1 [facility] Comment on above: Order Comment: Name Collection Type:: Clean-Voided Midstream Performed By: #### O BUDS, FFN, UA #### [facility] [address] [place] [address] Ketones Ql (U) Trace High Negative [facility] Comment on above: Order Comment: Name Collection Type:: Clean-Voided Midstream Performed By: #### O BUDS, FFN, UA #### [facility] [address] [place] [address] [place] Leukocyte esterase Test strip Ql (U) 3+ High Negative [facility] Comment on above: Order Comment: Name Collection Type:: Clean-Voided Midstream Performed By: #### O BUDS, FFN, UA #### [facility] [address] [place] [address] [place] Nitrite,Urine Negative Normal Negative [facility] Comment on above: Order Comment: Name Collection Type:: Clean-Voided Midstream Performed By: #### O BUDS, FFN, UA #### [facility] [address] [place] [address] [place] Occult Blood,Urine Negative Normal Negative [facility] Comment on above: Order Comment: Name Collection Type:: Clean-Voided Midstream Result Comment: PERF ORMED BY: [place] [address] PATHOLOGIST TUBE TRAILER FILLER CORY YAN M.D. Performed By: #### O BUDS, FFN, UA #### [address] Other Casts,Urine None Seen Normal None Seen [facility] Comment on above: Order Comment: Name Collection Type:: Clean-Voided Midstream Result Comment: PERF ORMED BY: [place] [address] PATHOLOGIST TUBE TRAILER FILLER CORY YAN M.D. Performed By: #### O BUDS, FFN, UA #### [address] pH (U) 7.5 [pH] Normal 5.0-9.0 [facility] Comment on above: Order Comment: Name Collection Type:: Clean-Voided Midstream Performed By: #### O BUDS, FFN, UA #### [address] Protein,Urine Trace High Negative [facility] Comment on above: Order Comment: Name Collection Type:: Clean-Voided Midstream Performed By: #### O BUDS, FFN, UA #### [address] RBC,Urine None Seen Normal 0-4 [facility] Comment on above: Order Comment: Name Collection Type:: Clean-Voided Midstream Performed By: #### O BUDS, FFN, UA #### [address] Specificy [place],Urine 1.023 Normal 1.001-1.030 [facility] Comment on above: Order Comment: Name Collection Type:: Clean-Voided Midstream Performed By: #### O BUDS, FFN, UA #### [place] [address] [place] Squamous Epithelial Cell,Urine 10-19 High 0-2 [facility] Comment on above: Order Comment: Name Collection Type:: Clean-Voided Midstream Performed By: #### O BUDS, FFN, UA #### [address] Urobilinogen,Urine Normal Normal Normal [facility] Comment on above: Order Comment: Name Collection Type:: Clean-Voided Midstream Performed By: #### O BUDS, FFN, UA #### [facility] [address] [place] [address] WBC,Urine 50-100 High 0-4 [facility] Comment on above: Order Comment: Name Collection Type:: Clean-Voided Midstream Performed By: #### O BUDS, FFN, UA #### [facility] [address] [place] [address] OB Urine Drug Screen (NO THC )on 03-01-2021 Amphetamine Screen,Urine Negative Normal Negative [facility] Comment on above: Performed By: #### O BUDS, FFN, UA #### [address] Barbiturate Screen,Urine Negative Normal Negative [facility] Comment on above: Performed By: #### O BUDS, FFN, UA #### [facility] [address] [place] [address] Benzodiazepines Screen,Urine Negative Normal Negative [facility] Comment on above: Performed By: #### O BUDS, FFN, UA #### [facility] [address] [place] [address] Cocaine Screen,Urine Negative Normal Negative [facility] Comment on above: Performed By: #### O BUDS, FFN, UA #### [facility] [address] [place] [address] Opiate Screen,Urine Negative Normal Negative [facility] Comment on above: Performed By: #### O BUDS, FFN, UA #### [facility] [address] [place] [address] Phencyclidine Screen, Urine Negative Normal Negative [facility] Comment on above: Result Comment: Thes e are unconfirmed results and should not be used for legal purposes. Drug Cut-Off Concentration: AMPH 1000 ng/mL WILLIAM 200 ng/mL JUNE 200 ng/mL COCM 300 ng/mL OP 300 ng/mL PCP 25 ng/mL PERFORMED BY: [place] [address] PATHOLOGIST TUBE TRAILER FILLER CORY YAN M.D. Performed By: #### O BUDS, FFN, UA #### [facility] [address] Uric Acidon 03-01-2021 Urate [Mass/Vol] 4.8 mg/dL Normal 2.6-7.2 [facility] Comment on above: Result Comment: PERF ORMED BY: [place] [address] PATHOLOGIST TUBE TRAILER FILLER CORY YAN M.D. Performed By: #### O BUDS, FFN, UA #### [facility] [address] [place] [address] Urine Cultureon 03-01-2021 Bacteria identified Cx Nom (U) >100,000 colonies/ml mixed bacterial skin contaminants 2 Days PERFORMED BY: [place] [address] PATHOLOGIST TUBE TRAILER FILLER CORY YAN M.D. [facility] Comment on above: Performed By: #### O SALO, FFN, UA #### [address] Protein, 24 Hr Urineon 01-25 Protein (U) [Mass/Vol] 8 mg/dL Normal 0-9 [facility] Comment on above: Order Comment: Reaso n for Exam 30 weeks gestation of ;Elevated blood pressure affe URINE COLLECTION TIME (HRS): 24 URINE VOLUME (MILLILTERS): 1500 Performed By: #### C MEDINA T V, TP24 #### [facility] [address] [place] [address] Total Protein 24 Hour Urine 120 High 50-100 [facility] Comment on above: Order Comment: Reaso n for Exam 30 weeks gestation of ;Elevated blood pressure affe URINE COLLECTION TIME (HRS): 24 URINE VOLUME (MILLILTERS): 1500 Performed By: #### C OL T V, TP24 #### [facility] [address] [place] [address] [place] U24 Ciara Time and Volon - Total Volume, Urine 1500 Normal [facility] Comment on above: Order Comment: Reaso n for Exam 30 weeks gestation of ;Elevated blood pressure affe URINE COLLECTION TIME (HRS): 24 URINE VOLUME (MILLILTERS): 1500 Result Comment: PERF ORMED BY: [place] [address] PATHOLOGIST TUBE TRAILER FILLER CORY YAN M.D. Performed By: #### O BUDS, FFN, UA #### [address] Urine Collection Time 24 Normal [facility] Comment on above: Order Comment: Reaso n for Exam 30 weeks gestation of ;Elevated blood pressure affe URINE COLLECTION TIME (HRS): 24 URINE VOLUME (MILLILTERS): 1500 Performed By: #### O BUDS, FFN, UA #### [address] Complete Blood Count Auto Di ffon 01-24-2021 Basophils (Bld) [#/Vol] 0.0 10*3/uL Normal 0.0-0.2 [facility] Comment on above: Order Comment: Reaso n for Exam 30 weeks gestation of ;Elevated blood pressure affe Result Comment: PERF ORMED BY: [place] [id number] PATHOLOGIST TUBE TRAILER FILLER CORY YAN M.D. Performed By: #### L DH, ADDONUAPLUS, CUU, CMP, CBC, URIC #### [address] Basophils/100 WBC (Bld) 0.1 % Normal . [facility] Comment on above: Order Comment: Reaso n for Exam 30 weeks gestation of ;Elevated blood pressure affe Performed By: #### L DH, ADDONUAPLUS, CUU, CMP, CBC, URIC #### [facility] [address] [place] [address] [place] Eosinophils (Bld) [#/Vol] 0.1 10*3/uL Normal 0.0-0.45 [facility] Comment on above: Order Comment: Reaso n for Exam 30 weeks gestation of ;Elevated blood pressure affe Performed By: #### L DH, ADDONUAPLUS, CUU, CMP, CBC, URIC #### [place] [address] [place] Eosinophils/100 WBC (Bld) 0.5 % Normal . [facility] Comment on above: Order Comment: Reaso n for Exam 30 weeks gestation of ;Elevated blood pressure affe Performed By: #### L DH, ADDONUAPLUS, CUU, CMP, CBC, URIC #### [address] Erythrocyte distribution width (RBC) [Ratio] 14.5 % Normal 11.9-15.3 [facility] Comment on above: Order Comment: Reaso n for Exam 30 weeks gestation of ;Elevated blood pressure affe Performed By: #### L DH, ADDONUAPLUS, CUU, CMP, CBC, URIC #### [address] Hematocrit (Bld) [Volume fraction] 36.1 % Normal 34.0-46.4 [facility] Comment on above: Order Comment: Reaso n for Exam 30 weeks gestation of ;Elevated blood pressure affe Performed By: #### L DH, ADDONUAPLUS, CUU, CMP, CBC, URIC #### [address] Hemoglobin (Bld) [Mass/Vol] 11.8 g/dL Normal 11.8-15.4 [facility] Comment on above: Order Comment: Reaso n for Exam 30 weeks gestation of ;Elevated blood pressure affe Performed By: #### L DH, ADDONUAPLUS, CUU, CMP, CBC, URIC #### [address] Lymphocytes (Bld) [#/Vol] 1.3 10*3/uL Normal 1.00-4.8 [facility] Comment on above: Order Comment: Reaso n for Exam 30 weeks gestation of ;Elevated blood pressure affe Performed By: #### L DH, ADDONUAPLUS, CUU, CMP, CBC, URIC #### [address] Lymphocytes/100 WBC (Bld) 8.2 % Normal . [facility] Comment on above: Order Comment: Reaso n for Exam 30 weeks gestation of ;Elevated blood pressure affe Performed By: #### L DH, ADDONUAPLUS, CUU, CMP, CBC, URIC #### [facility] [address] MCH (RBC) [Entitic mass] 26.2 pg Normal 24.7-34.3 [facility] Comment on above: Order Comment: Reaso n for Exam 30 weeks gestation of ;Elevated blood pressure affe Performed By: #### L DH, ADDONUAPLUS, CUU, CMP, CBC, URIC #### [facility] [address] MCV (RBC) [Entitic vol] 80.3 fL Normal 80-100 [facility] Comment on above: Order Comment: Reaso n for Exam 30 weeks gestation of ;Elevated blood pressure affe Performed By: #### L DH, ADDONUAPLUS, CUU, CMP, CBC, URIC #### [facility] [address] Mean Corpuscular HGB Conc 32.7 g/dL Normal 32.0-35.0 [facility] Comment on above: Order Comment: Reaso n for Exam 30 weeks gestation of ;Elevated blood pressure affe Performed By: #### L DH, ADDONUAPLUS, CUU, CMP, CBC, URIC #### [facility] [address] [place] [address] [place] Monocytes (Bld) [#/Vol] 0.6 10*3/uL Normal 0.0-0.8 [facility] Comment on above: Order Comment: Reaso n for Exam 30 weeks gestation of ;Elevated blood pressure affe Performed By: #### L DH, ADDONUAPLUS, CUU, CMP, CBC, URIC #### [facility] [address] Monocytes/100 WBC (Bld) 3.7 % Normal . [facility] Comment on above: Order Comment: Reaso n for Exam 30 weeks gestation of ;Elevated blood pressure affe Performed By: #### L DH, ADDONUAPLUS, CUU, CMP, CBC, URIC #### [facility] [address] [place] [id number] [place] Neutrophils (Bld) [#/Vol] 13.9 10*3/uL High 1.8-7.7 [facility] Comment on above: Order Comment: Reaso n for Exam 30 weeks gestation of ;Elevated blood pressure affe Performed By: #### L DH, ADDONUAPLUS, CUU, CMP, CBC, URIC #### [facility] [address] [place] [id number] [place] Neutrophils/100 WBC (Bld) 87.5 % Normal . [facility] Comment on above: Order Comment: Reaso n for Exam 30 weeks gestation of ;Elevated blood pressure affe Performed By: #### L DH, ADDONUAPLUS, CUU, CMP, CBC, URIC #### [facility] [address] [place] [address] [place] Nucleated RBC/100 WBC (Bld) [Ratio] 0.0 % Normal 0-0.5 [facility] Comment on above: Order Comment: Reaso n for Exam 30 weeks gestation of ;Elevated blood pressure affe Performed By: #### L DH, ADDONUAPLUS, CUU, CMP, CBC, URIC #### [facility] [address] [place] [id number] [place] Platelet mean volume (Bld) [Entitic vol] 7.1 fL Normal 6.3-10.7 [facility] Comment on above: Order Comment: Reaso n for Exam 30 weeks gestation of ;Elevated blood pressure affe Performed By: #### L DH, ADDONUAPLUS, CUU, CMP, CBC, URIC #### [facility] [address] [place] [id number] [place] Platelets (Bld) [#/Vol] 288 10*3/uL Normal 150-450 [facility] Comment on above: Order Comment: Reaso n for Exam 30 weeks gestation of ;Elevated blood pressure affe Performed By: #### L DH, ADDONUAPLUS, CUU, CMP, CBC, URIC #### [facility] [address] RBC (Bld) [#/Vol] 4.50 10*6/uL Normal 3.60-5.00 [facility] Comment on above: Order Comment: Reaso n for Exam 30 weeks gestation of ;Elevated blood pressure affe Performed By: #### L DH, ADDONUAPLUS, CUU, CMP, CBC, URIC #### [facility] [address] [place] [address] WBC (Bld) [#/Vol] 15.9 10*3/uL High 4.5-11.0 [facility] Comment on above: Order Comment: Reaso n for Exam 30 weeks gestation of ;Elevated blood pressure affe Performed By: #### L DH, ADDONUAPLUS, CUU, CMP, CBC, URIC #### [address] Comprehensive Metabolic Pane humza 01-24-2021 Albumin [Mass/Vol] 2.7 g/dL Low 3.2-5.5 [facility] Comment on above: Order Comment: Reaso n for Exam 30 weeks gestation of ;Elevated blood pressure affe Performed By: #### L DH, ADDONUAPLUS, CUU, CMP, CBC, URIC #### [address] Albumin/Globulin [Mass ratio] 0.9 {ratio} Normal [facility] Comment on above: Order Comment: Reaso n for Exam 30 weeks gestation of ;Elevated blood pressure affe Performed By: #### L DH, ADDONUAPLUS, CUU, CMP, CBC, URIC #### [facility] [address] [place] [address] ALP [Catalytic activity/Vol] 99 U/L High 32-92 [facility] Comment on above: Order Comment: Reaso n for Exam 30 weeks gestation of ;Elevated blood pressure affe Performed By: #### L DH, ADDONUAPLUS, CUU, CMP, CBC, URIC #### [facility] [address] [place] [address] [place] ALT [Catalytic activity/Vol] 18 U/L Normal 10-60 [facility] Comment on above: Order Comment: Reaso n for Exam 30 weeks gestation of ;Elevated blood pressure affe Performed By: #### L DH, ADDONUAPLUS, CUU, CMP, CBC, URIC #### [facility] [address] AST [Catalytic activity/Vol] 15 U/L Normal 10-42 [facility] Comment on above: Order Comment: Reaso n for Exam 30 weeks gestation of ;Elevated blood pressure affe Performed By: #### L DH, ADDONUAPLUS, CUU, CMP, CBC, URIC #### [facility] [address] Bilirubin [Mass/Vol] 0.3 mg/dL Normal 0.3-1.2 [facility] Comment on above: Order Comment: Reaso n for Exam 30 weeks gestation of ;Elevated blood pressure affe Performed By: #### L DH, ADDONUAPLUS, CUU, CMP, CBC, URIC #### [facility] [address] Calcium [Mass/Vol] 8.9 mg/dL Normal 8.2-10.2 [facility] Comment on above: Order Comment: Reaso n for Exam 30 weeks gestation of ;Elevated blood pressure affe Performed By: #### L DH, ADDONUAPLUS, CUU, CMP, CBC, URIC #### [facility] [address] [place] [address] [place] Chloride [Moles/Vol] 104 mmol/L Normal 95-114 [facility] Comment on above: Order Comment: Reaso n for Exam 30 weeks gestation of ;Elevated blood pressure affe Performed By: #### L DH, ADDONUAPLUS, CUU, CMP, CBC, URIC #### [facility] [address] [place] [address] [place] CO2 [Moles/Vol] 22.3 mmol/L Normal 22.0-30.0 [facility] Comment on above: Order Comment: Reaso n for Exam 30 weeks gestation of ;Elevated blood pressure affe Performed By: #### L DH, ADDONUAPLUS, CUU, CMP, CBC, URIC #### [facility] [address] [place] [address] [place] Creatinine [Mass/Vol] 0.49 mg/dL Normal 0.44-1.03 [facility] Comment on above: Order Comment: Reaso n for Exam 30 weeks gestation of ;Elevated blood pressure affe Performed By: #### L DH, ADDONUAPLUS, CUU, CMP, CBC, URIC #### [facility] [address] Estimated GFR ( Inge > 60 [facility] Comment on above: Order Comment: Reaso n for Exam 30 weeks gestation of ;Elevated blood pressure affe Result Comment: GFR estimated reference range: According to KDOQI guidelines, <60 ml/min/1.73m2 is sufficient to diagnose a patient with chronic kidney disease. Performed By: #### L DH, ADDONUAPLUS, CUU, CMP, CBC, URIC #### [facility] [address] Estimated GFR (Non- Am > 60 Normal [facility] Comment on above: Order Comment: Reaso n for Exam 30 weeks gestation of ;Elevated blood pressure affe Performed By: #### L DH, ADDONUAPLUS, CUU, CMP, CBC, URIC #### [facility] [address] [place] [id number] [facility] Globulin (S) [Mass/Vol] 3.1 g/dL Normal [facility] Comment on above: Order Comment: Reaso n for Exam 30 weeks gestation of ;Elevated blood pressure affe Performed By: #### L DH, ADDONUAPLUS, CUU, CMP, CBC, URIC #### [facility] [address] [place] [address] [place] Glucose [Mass/Vol] 115 mg/dL High 70-100 [facility] Comment on above: Order Comment: Reaso n for Exam 30 weeks gestation of ;Elevated blood pressure affe Result Comment: [place] om Glucose Reference Range is dependent on time and content of last meal. Glucose of more than 200 mg/dL in a nonstressed, ambulatory subject supports the diagnosis of Diabetes Mellitus. ADA recommended reference range Performed By: #### L DH, ADDONUAPLUS, CUU, CMP, CBC, URIC #### [facility] [address] Potassium [Moles/Vol] 3.9 mmol/L Normal 3.5-5.1 [facility] Comment on above: Order Comment: Reaso n for Exam 30 weeks gestation of ;Elevated blood pressure affe Performed By: #### L DH, ADDONUAPLUS, CUU, CMP, CBC, URIC #### [facility] [address] Protein [Mass/Vol] 5.8 g/dL Low 6.1-7.9 [facility] Comment on above: Order Comment: Reaso n for Exam 30 weeks gestation of ;Elevated blood pressure affe Performed By: #### L DH, ADDONUAPLUS, CUU, CMP, CBC, URIC #### [facility] [address] [place] [address] Sodium [Moles/Vol] 136 mmol/L Normal 136-146 [facility] Comment on above: Order Comment: Reaso n for Exam 30 weeks gestation of ;Elevated blood pressure affe Performed By: #### L DH, ADDONUAPLUS, CUU, CMP, CBC, URIC #### [facility] [address] [place] [address] Urea nitrogen [Mass/Vol] 8 mg/dL Low 9-23 [facility] Comment on above: Order Comment: Reaso n for Exam 30 weeks gestation of ;Elevated blood pressure affe Performed By: #### L DH, ADDONUAPLUS, CUU, CMP, CBC, URIC #### [facility] [address] [place] [address] [place] Dipstick and Microscopicon 0 01-24-2021 Appearance (U) Clear Normal Clear [facility] Comment on above: Order Comment: Reaso n for Exam 30 weeks gestation of ;Elevated blood pressure affe Name Collection Type:: Clean-Voided Midstream Performed By: #### L DH, ADDONUAPLUS, CUU, CMP, CBC, URIC #### [facility] [address] Bacteria,Urine None Seen Normal None Seen [facility] Comment on above: Order Comment: Reaso n for Exam 30 weeks gestation of ;Elevated blood pressure affe Name Collection Type:: Clean-Voided Midstream Performed By: #### L DH, ADDONUAPLUS, CUU, CMP, CBC, URIC #### [facility] [address] Bilirubin,Urine Negative Normal Negative [facility] Comment on above: Order Comment: Reaso n for Exam 30 weeks gestation of ;Elevated blood pressure affe Name Collection Type:: Clean-Voided Midstream Performed By: #### L DH, ADDONUAPLUS, CUU, CMP, CBC, URIC #### [facility] [address] Color (U) Yellow Normal Yellow [facility] Comment on above: Order Comment: Reaso n for Exam 30 weeks gestation of ;Elevated blood pressure affe Name Collection Type:: Clean-Voided Midstream Performed By: #### L DH, ADDONUAPLUS, CUU, CMP, CBC, URIC #### [facility] [address] [place] [address] Glucose Ql (U) Normal Normal Normal [facility] Comment on above: Order Comment: Reaso n for Exam 30 weeks gestation of ;Elevated blood pressure affe Name Collection Type:: Clean-Voided Midstream Performed By: #### L DH, ADDONUAPLUS, CUU, CMP, CBC, URIC #### [facility] [address] Hyaline Casts,Urine 0-8 Normal 0-8 [facility] Comment on above: Order Comment: Reaso n for Exam 30 weeks gestation of ;Elevated blood pressure affe Name Collection Type:: Clean-Voided Midstream Result Comment: PERF ORMED BY: [place] [address] PATHOLOGIST TUBE TRAILER FILLER CORY YAN M.D. Performed By: #### L DH, ADDONUAPLUS, CUU, CMP, CBC, URIC #### [facility] [address] [place] [address] [place] Ketones Ql (U) Negative Normal Negative [facility] Comment on above: Order Comment: Reaso n for Exam 30 weeks gestation of ;Elevated blood pressure affe Name Collection Type:: Clean-Voided Midstream Performed By: #### L DH, ADDONUAPLUS, CUU, CMP, CBC, URIC #### [facility] [address] Leukocyte esterase Test strip Ql (U) Negative Normal Negative [facility] Comment on above: Order Comment: Reaso n for Exam 30 weeks gestation of ;Elevated blood pressure affe Name Collection Type:: Clean-Voided Midstream Performed By: #### L DH, ADDONUAPLUS, CUU, CMP, CBC, URIC #### [facility] [address] Nitrite,Urine Negative Normal Negative [facility] Comment on above: Order Comment: Reaso n for Exam 30 weeks gestation of ;Elevated blood pressure affe Name Collection Type:: Clean-Voided Midstream Performed By: #### L DH, ADDONUAPLUS, CUU, CMP, CBC, URIC #### [facility] [address] Occult Blood,Urine Negative Normal Negative [facility] Comment on above: Order Comment: Reaso n for Exam 30 weeks gestation of ;Elevated blood pressure affe Name Collection Type:: Clean-Voided Midstream Performed By: #### L DH, ADDONUAPLUS, CUU, CMP, CBC, URIC #### [facility] [address] [place] [address] [place] pH (U) 6.5 [pH] Normal 5.0-9.0 [facility] Comment on above: Order Comment: Reaso n for Exam 30 weeks gestation of ;Elevated blood pressure affe Name Collection Type:: Clean-Voided Midstream Performed By: #### L DH, ADDONUAPLUS, CUU, CMP, CBC, URIC #### [facility] [address] [place] [address] [place] Protein,Urine Negative Normal Negative [facility] Comment on above: Order Comment: Reaso n for Exam 30 weeks gestation of ;Elevated blood pressure affe Name Collection Type:: Clean-Voided Midstream Performed By: #### L DH, ADDONUAPLUS, CUU, CMP, CBC, URIC #### [facility] [address] [place] [address] RBC,Urine 3-4 Normal 0-4 [facility] Comment on above: Order Comment: Reaso n for Exam 30 weeks gestation of ;Elevated blood pressure affe Name Collection Type:: Clean-Voided Midstream Performed By: #### L DH, ADDONUAPLUS, CUU, CMP, CBC, URIC #### [facility] [address] [place] [address] Specificy [place],Urine 1.023 Normal 1.001-1.030 [facility] Comment on above: Order Comment: Reaso n for Exam 30 weeks gestation of ;Elevated blood pressure affe Name Collection Type:: Clean-Voided Midstream Performed By: #### L DH, ADDONUAPLUS, CUU, CMP, CBC, URIC #### [facility] [address] [place] [address] Squamous Epithelial Cell,Urine 3-4 High 0-2 [facility] Comment on above: Order Comment: Reaso n for Exam 30 weeks gestation of ;Elevated blood pressure affe Name Collection Type:: Clean-Voided Midstream Performed By: #### L DH, ADDONUAPLUS, CUU, CMP, CBC, URIC #### [facility] [address] [place] [address] Urobilinogen,Urine Normal Normal Normal [facility] Comment on above: Order Comment: Reaso n for Exam 30 weeks gestation of ;Elevated blood pressure affe Name Collection Type:: Clean-Voided Midstream Performed By: #### L DH, ADDONUAPLUS, CUU, CMP, CBC, URIC #### [facility] [address] [place] [address] WBC,Urine 3-4 Normal 0-4 [facility] Comment on above: Order Comment: Reaso n for Exam 30 weeks gestation of ;Elevated blood pressure affe Name Collection Type:: Clean-Voided Midstream Performed By: #### L DH, ADDONUAPLUS, CUU, CMP, CBC, URIC #### [facility] [address] LDH Lactate Dehydrogenaseon 01-24-2021 LDH Lactate Dehydrogenase 137 U/L Normal 45-190 [facility] Comment on above: Order Comment: Reaso n for Exam 30 weeks gestation of ;Elevated blood pressure affe Performed By: #### L DH, ADDONUAPLUS, CUU, CMP, CBC, URIC #### [facility] [address] [place] [id number] [facility] Uric Acidon 01-24-2021 Urate [Mass/Vol] 3.8 mg/dL Normal 2.6-7.2 [facility] Comment on above: Order Comment: Reaso n for Exam 30 weeks gestation of ;Elevated blood pressure affe Result Comment: PERF ORMED BY: [place] [address] PATHOLOGIST TUBE TRAILER FILLER CORY YAN M.D. Performed By: #### L DH, ADDONUAPLUS, CUU, CMP, CBC, URIC #### [facility] [address] Urine Cultureon 01-24-2021 Bacteria identified Cx Nom (U) Reason for Exam 30 weeks gestation of ;Elevated blood pressure affe Urine Reason for Exam: 30 weeks gestation of ;Elevated blood pressure affe : Urine >100,000 colonies/ml mixed bacterial skin contaminants 2 Days PERFORMED BY: [place] [address] PATHOLOGIST TUBE TRAILER FILLER CORY YAN M.D. Normal [facility] Comment on above: Performed By: #### L DH, ADDONUAPLUS, CUU, CMP, CBC, URIC #### [facility] [address] Fibronectinon 01-11-20 21 Fibronectin Negative Normal Negative [facility] Comment on above: Order Comment: Comme nt patients 22 - 34 6/7 weeks prior to vaginal exam Result Comment: PERF ORMED BY: [address] [place] [address] PATHOLOGIST TUBE TRAILER FILLER CORY YAN M.D. Performed By: #### O BUDS, FFN, UA #### [address] OB Urine Drug Screen (NO THC )on 01-10-2021 Amphetamine Screen,Urine Negative Normal Negative [facility] Comment on above: Performed By: #### O BUDS, FFN, UA #### [address] Barbiturate Screen,Urine Negative Normal Negative [facility] Comment on above: Performed By: #### O BUDS, FFN, UA #### [address] Benzodiazepines Screen,Urine Negative Normal Negative [facility] Comment on above: Performed By: #### O BUDS, FFN, UA #### [address] Cocaine Screen,Urine Negative Normal Negative [facility] Comment on above: Performed By: #### O BUDS, FFN, UA #### [address] Opiate Screen,Urine Negative Normal Negative [facility] Comment on above: Performed By: #### O BUDS, FFN, UA #### [address] Phencyclidine Screen, Urine Negative Normal Negative [facility] Comment on above: Result Comment: Thes e are unconfirmed results and should not be used for legal purposes. Drug Cut-Off Concentration: AMPH 1000 ng/mL WILLIAM 200 ng/mL JUNE 200 ng/mL COCM 300 ng/mL OP 300 ng/mL PCP 25 ng/mL PERFORMED BY: [place] [address] PATHOLOGIST TUBE TRAILER FILLER CORY YAN M.D. Performed By: #### O BUDS, FFN, UA #### [facility] [address] [place] [address] Urinalysison 01-10-2021 Appearance (U) Clear Normal Clear [facility] Comment on above: Order Comment: Name Collection Type:: Clean-Voided Midstream Performed By: #### O BUDS, FFN, UA #### [facility] [address] [place] [address] [place] Bilirubin,Urine Negative Normal Negative [facility] Comment on above: Order Comment: Name Collection Type:: Clean-Voided Midstream Performed By: #### O BUDS, FFN, UA #### [facility] [address] [place] [address] [place] Color (U) Yellow Normal Yellow [facility] Comment on above: Order Comment: Name Collection Type:: Clean-Voided Midstream Performed By: #### O BUDS, FFN, UA #### [facility] [address] [place] [address] [place] Glucose Ql (U) Normal Normal Normal [facility] Comment on above: Order Comment: Name Collection Type:: Clean-Voided Midstream Performed By: #### O BUDS, FFN, UA #### [facility] [address] [place] [address] [place] Ketones Ql (U) Negative Normal Negative [facility] Comment on above: Order Comment: Name Collection Type:: Clean-Voided Midstream Performed By: #### O BUDS, FFN, UA #### [facility] [address] [place] [address] [place] Leukocyte esterase Test strip Ql (U) Negative Normal Negative [facility] Comment on above: Order Comment: Name Collection Type:: Clean-Voided Midstream Performed By: #### O BUDS, FFN, UA #### [facility] [address] [place] [address] [place] Nitrite,Urine Negative Normal Negative [facility] Comment on above: Order Comment: Name Collection Type:: Clean-Voided Midstream Performed By: #### O BUDS, FFN, UA #### [facility] [address] [place] [address] [place] Occult Blood,Urine Negative Normal Negative [facility] Comment on above: Order Comment: Name Collection Type:: Clean-Voided Midstream Result Comment: PERF ORMED BY: [place] [address] PATHOLOGIST TUBE TRAILER FILLER CORY YAN M.D. Performed By: #### O BUDS, FFN, UA #### [address] pH (U) 6.5 [pH] Normal 5.0-9.0 [facility] Comment on above: Order Comment: Name Collection Type:: Clean-Voided Midstream Performed By: #### O BUDS, FFN, UA #### [address] Protein,Urine Negative Normal Negative [facility] Comment on above: Order Comment: Name Collection Type:: Clean-Voided Midstream Performed By: #### O BUDS, FFN, UA #### [address] Specificy [place],Urine 1.021 Normal 1.001-1.030 [facility] Comment on above: Order Comment: Name Collection Type:: Clean-Voided Midstream Performed By: #### O BUDS, FFN, UA #### [address] Urobilinogen,Urine Normal Normal Normal [facility] Comment on above: Order Comment: Name Collection Type:: Clean-Voided Midstream Performed By: #### O BUDS, FFN, UA #### [address] CBC AUTO DIFFon 05-19-2020 Basophils (Bld) [#/Vol] 0.1 103/ul Normal 0.0-0.1 [facility] Comment on above: Performed By: #### C BC #### [facility] [address] [address] Iens Rachel Basophils/100 WBC (Bld) 0.6 % Normal 0.2-2.0 [facility] Comment on above: Performed By: #### C BC #### [facility] [address] [address] Ines Rachel Eosinophils (Bld) [#/Vol] 0.2 103/ul Normal 0.0-0.7 [facility] Comment on above: Performed By: #### C BC #### [facility] [address] [place], [place] [id number] Ines Rachel Eosinophils/100 WBC (Bld) 2.6 % Normal 0.9-7.0 [facility] Comment on above: Performed By: #### C BC #### [facility] [address] [place] [address] Ines Rachel Erythrocyte distribution width (RBC) [Ratio] 12.9 % Normal 11.0-15.0 [facility] Comment on above: Performed By: #### C BC #### [facility] [address] [place] [address] Ines Rachel Hematocrit (Bld) [Volume fraction] 41.3 % Normal 36.0-48.0 [facility] Comment on above: Performed By: #### C BC #### [facility] [address] [place] [address] Ines Rachel Hemoglobin (Bld) [Mass/Vol] 13.8 g/dL Normal 12.0-16.0 [facility] Comment on above: Performed By: #### C BC #### [facility] [address] [place] [address] Ines Rachel IG # 0.02 10e3/ul Normal 0.00-0.03 [facility] Comment on above: Performed By: #### C BC #### [facility] [address] [place] [address] Ines Rachel IG % 0.2 % Normal 0.0-0.5 [facility] Comment on above: Performed By: #### C BC #### [facility] [address] [place], [place] [id number] Ines Rachel Lymphocytes (Bld) [#/Vol] 2.1 103/ul Normal 1.2-3.8 [facility] Comment on above: Performed By: #### C BC #### [facility] [address] [place] [address] Ines Rachel Lymphocytes/100 WBC (Bld) 24.9 % Normal 20.5-60.0 [facility] Comment on above: Performed By: #### C BC #### [facility] [address] [place] [id number] Ines Rachel MANUAL DIFF REQ NO Normal [facility] Comment on above: Performed By: #### C BC #### [facility] [address] [place], [place] [address] Ines Rachel MCH (RBC) [Entitic mass] 27.6 pg Normal 26.7-34.0 [facility] Comment on above: Performed By: #### C BC #### [facility] [address] [place], [place] [id number] Ines Rachel MCHC (RBC) [Mass/Vol] 33.4 g/dL Normal 29.9-35.2 [facility] Comment on above: Performed By: #### C BC #### [facility] [address] [place], [place] [id number] Ines Rachel MCV (RBC) [Entitic vol] 82.6 fL Normal 81.0-99.0 [facility] Comment on above: Performed By: #### C BC #### [facility] [address] [place] [id number] Ines Rachel Monocytes (Bld) [#/Vol] 0.6 103/ul Normal 0.3-0.8 [facility] Comment on above: Performed By: #### C BC #### [facility] [address] [place], [place] [id number] Ines Rachel Monocytes/100 WBC (Bld) 6.9 % Normal 1.7-12.0 [facility] Comment on above: Performed By: #### C BC #### [facility] [address] [place] [id number] Ines Rachel Neutrophils (Bld) [#/Vol] 5.5 103/ul Normal 1.4-6.5 [facility] Comment on above: Performed By: #### C BC #### [facility] [address] [place] [address] Ines Rachel Neutrophils/100 WBC (Bld) 64.8 % Normal 43.0-75.0 [facility] Comment on above: Performed By: #### C BC #### [facility] [address] [place], [place] [address] Inesgovind Ramos Platelet mean volume (Bld) [Entitic vol] 8.9 fL Critically low 9.5-13.5 [facility] Comment on above: Performed By: #### C BC #### [facility] [address] [place], [place] [address] Ines Rachel Platelets (Bld) [#/Vol] 360 103/ul Normal 150-450 [facility] Comment on above: Performed By: #### C BC #### [facility] [address] [place] [address] Ines Rachel RBC (Bld) [#/Vol] 5.00 106/ul Normal 4.20-5.40 [facility] Comment on above: Performed By: #### C BC #### [facility] [address] [place], [place] [id number] Ines Rachel WBC (Bld) [#/Vol] 8.4 103/ul Normal 4.0-11.0 [facility] Comment on above: Performed By: #### C BC #### [facility] [address] [place], [place] [id number] Inesgovind Ramso LIPID PROFILEon 05-19-2020 CHOL-HDL RATIO NORM SEE BELOW Normal [facility] Comment on above: Result Comment: 3.3 - 4.4 LOW RISK 4.4 - 7.1 AVERAGE RISK 7.1 - 11.0 MODERATE RISK >11.0 HIGH RISK Performed By: #### L IPID, CMP #### [facility] [address] [place], [place] [id number] Ines Rachel Cholesterol [Mass/Vol] 170 mg/dL Normal <=200 [facility] Comment on above: Performed By: #### L IPID, CMP #### [facility] [address] [place], [place] [id number] Ines Rachel Cholesterol in HDL [Mass/Vol] > or = 60 mg/dl - LOW CARDIOVASCULAR RISK <40 mg/dl - HIGH CARDIOVASCULAR RISK Normal [facility] Comment on above: Performed By: #### L IPID, CMP #### [facility] [address] [place] [id number] Ines Rachel Cholesterol in HDL [Mass/Vol] 43 mg/dL Normal [facility] Comment on above: Performed By: #### L IPID, CMP #### [facility] [address] [place] [id number] Ines Rachel Cholesterol in LDL [Mass/Vol] 115.0 mg/dL Normal [facility] Comment on above: Performed By: #### L IPID, CMP #### [facility] [address] [place] [id number] Ines Rachel Cholesterol in LDL [Mass/Vol] SEE BELOW Normal [facility] Comment on above: Result Comment: <100 mg/dl OPTIMAL 100 - 129 mg/dl NEAR OR ABOVE OPTIMAL 130 - 159 mg/dl BORDERLINE HIGH 160 - 189 mg/dl HIGH >190 mg/dl VERY HIGH Performed By: #### L IPID, CMP #### [facility] [address] [place] [id number] Ines Rachel Cholesterol.total/C holesterol in HDL [Mass ratio] 4.0 {ratio} Normal [facility] Comment on above: Performed By: #### L IPID, CMP #### [facility] [address] [place] [address] Ines Rachel Triglyceride [Mass/Vol] 60 mg/dL Normal <=150 [facility] Comment on above: Performed By: #### L IPID, CMP #### [facility] [address] [place] [id number] Ines Rachel VLDL CALC 12.0 mg/dL Normal [facility] Comment on above: Performed By: #### L IPID, CMP #### [facility] [address] [place] [id number] Ines Rachel PROF 14(COMP METB)on 020 Albumin [Mass/Vol] 3.7 g/dL Normal 3.5-5.0 [facility] Comment on above: Performed By: #### L IPID, CMP #### [facility] [address] [place] [address] Ines Rachel Albumin/Globulin [Mass ratio] 0.8 {ratio} Normal [facility] Comment on above: Performed By: #### L IPID, CMP #### [facility] [address] [place] [address] Ines Rachel ALP [Catalytic activity/Vol] 123 U/L Normal 38-126 [facility] Comment on above: Performed By: #### L IPID, CMP #### [facility] [address] [place] [address] Ines Rachel ALT [Catalytic activity/Vol] 30 U/L Normal 9-52 [facility] Comment on above: Performed By: #### L IPID, CMP #### [facility] [address] [place] [address] Ines Rachel Anion gap [Moles/Vol] 13.3 mmol/L Normal [facility] Comment on above: Performed By: #### L IPID, CMP #### [facility] [address] [place] [address] Ines Rachel AST [Catalytic activity/Vol] 18 U/L Normal 14-36 [facility] Comment on above: Performed By: #### L IPID, CMP #### [facility] [address] [place] [address] Ines Rachel Bilirubin Ql (U) 0.4 mg/dL Normal 0.2-1.3 [facility] Comment on above: Performed By: #### L IPID, CMP #### [facility] [address] [place] [address] Ines Rachel Calcium [Mass/Vol] 9.2 mg/dL Normal 8.4-10.2 [facility] Comment on above: Performed By: #### L IPID, CMP #### [facility] [address] [place] [address] Ines Rachel Chloride [Moles/Vol] 104 mmol/L Normal 98-107 [facility] Comment on above: Performed By: #### L IPID, CMP #### [facility] [address] [place], [place] [phone] Ines Rachel CO2 [Moles/Vol] 27.9 mmol/L Normal 22.0-30.0 [facility] Comment on above: Performed By: #### L IPID, CMP #### [facility] [address] [place] [address] Ines Rachel Creatinine [Mass/Vol] 0.61 mg/dL Normal 0.52-1.04 [facility] Comment on above: Performed By: #### L IPID, CMP #### [facility] [address] [place] [address] Ines Rachel EGFR-AF BURUNDIAN >60 Normal >=60 [facility] Comment on above: Performed By: #### L IPID, CMP #### [facility] [address] [place] [address] Ines Rachel EGFR-NON AF B[place]UNDIAN >60 Normal >=60 [facility] Comment on above: Performed By: #### L IPID, CMP #### [facility] [address] [place] [address] Ines Rachel Globulin (S) [Mass/Vol] 4.4 g/dL Normal [facility] Comment on above: Performed By: #### L IPID, CMP #### [facility] [address] [place] [address] Ines Rachel Glucose [Mass/Vol] 97 mg/dL Normal 74-106 [facility] Comment on above: Performed By: #### L IPID, CMP #### [facility] [address] [place] [address] Ines Rachel Potassium [Moles/Vol] 4.2 mmol/L Normal 3.4-5.0 [facility] Comment on above: Performed By: #### L IPID, CMP #### [facility] [address] [place] [address] Ines Rachel Protein [Mass/Vol] 8.1 g/dL Normal 6.1-8.2 [facility] Comment on above: Performed By: #### L IPID, CMP #### [facility] [address] [place] [address] Ines Rachel Sodium [Moles/Vol] 141 mmol/L Normal 137-145 [facility] Comment on above: Performed By: #### L IPID, CMP #### [facility] [address] [place] [address] Ines Ramos Urea nitrogen [Mass/Vol] 14.0 mg/dL Normal 7.0-17.0 [facility] Comment on above: Performed By: #### L IPID, CMP #### [facility] [address] [place] [address] Ines Ramos Urea nitrogen/Creatinine [Mass ratio] 23.0 mg/mg Normal [facility] Comment on above: Performed By: #### L IPID, CMP #### [facility] [address] [place] [address] Ines Ramos CULTURE THROATon 07-31-2019 CULTURE THROAT Culture Observations : Normal respiratory kaye. Normal [facility] Comment on above: Performed By: #### S SCRN, THRTCX #### [facility] [address] [place] [address] Ines Ramos INFLUENZA A AND B AGon 07-31 INFLUANEGH SEE BELOW Normal [facility] Comment on above: Result Comment: Nega tive for Flu A protein angiten. Infection due to Flu A cannot be ruled out. Flu A angiten in the sample may be below the detection limit of the test. Performed By: #### I NFLUAB #### [facility] [address] [place] [address] Ines Ramos INFLUBNEGH SEE BELOW Normal [facility] Comment on above: Result Comment: Nega tive for Flu B protein antigen. Infection due to Flu B cannot be ruled out. Flu B antigen in the sample may be below the detection limit of the test. Performed By: #### I NFLUAB #### [facility] [address] [place] [address] Ines Ramos INFLUENZA A AG Negative Normal NEGATIVE SEE COMMENT [facility] Comment on above: Performed By: #### I NFLUAB #### [facility] [address] [place] [address] Inesgovind Ramos INFLUENZA B AG Negative Normal NEGATIVE SEE COMMENT [facility] Comment on above: Performed By: #### I NFLUAB #### [facility] [address] [place], [place] [address] Ines Ramos INTERNAL CONTROLS Within Normal Limits Normal Wi thin Normal Limits [facility] Comment on above: Performed By: #### I NFLUAB #### [facility] [address] [place], [place] [address] Ines Ramos STREPT SCREENon 07-31-2019 STREP SCREEN A Negative Normal NEGATIVE [facility] Comment on above: Performed By: #### S SCRN, THRTCX #### [facility] [address] [place], [place] [address] Ines Ramos XR CHEST 2 Von 07-31-2019 XR CHEST 2 V Patient: SIVA CARRASQUILLO Exam Date: 07/31/2019 : 1995 Gender:F Ordering : DR. KRISH GO . Admission #: [id number] Family : DR RENETTA SHOOK . Order #: [id number] CLICK HERE TO VIEW EXAM RADIOLOGY REPORT PROCEDURE: RADIOGRAPH CHEST 2 VIEWS COMPARISON: None. INDICATIONS: Acute cough, right earache and shortness of breath FINDINGS: LUNGS: No significant pulmonary parenchymal abnormalities. VASCULATURE: No increased pulmonary vasculature. PLEURA: No pneumothorax, effusion, or pleural thickening. CARDIAC: No cardiomegaly or cardiac silhouette abnormality. MEDIASTINUM: No visible mass or adenopathy. BONES: No fracture or visible bone lesion. OTHER: Negative. CONCLUSION: No acute disease. Dictated by: Glenna Alonzo M.D. on 07/31/2019 at 09:06 Approved by: Glenna Alonzo M.D. on 07/31/2019 at 09:07 Normal [facility] Vital Signs Date Time Vital Sign Value Performing Clinician Facility 12-20-2024 13:23-0400 Body mass index (BMI) [Ratio] 36.87 kg/m2 Tierney Bass NP Work Phone: [facility] 12-20-2024 13:23-0400 Body weight 94.41 kg Tierney Bass NP Work Phone: [facility] 12-07-2024 08:11-0400 Body height 160.02 cm [facility] 12-07-2024 08:11-0400 Body mass index (BMI) [Ratio] 36.5 kg/m2 [facility] 12-07-2024 08:11-0400 Body temperature 98.8 [degF] [facility] 12-07-2024 08:11-0400 Body weight 93.44 kg [facility] 12-07-2024 08:11-0400 Diastolic blood pressure 82 mm[Hg] [facility] 12-07-2024 08:11-0400 Heart rate 96 /min [facility] 12-07-2024 08:11-0400 SaO2% (BldA) [Mass fraction] 99 % [facility] 12-07-2024 08:11-0400 Systolic blood pressure 124 mm[Hg] [facility] 10-13-2024 09:38-0400 Body height 160 cm Lindsey Pearl DO Work Phone: [facility] 10-13-2024 09:38-0400 Body mass index (BMI) [Ratio] 38.16 kg/m2 Lindsey Pearl DO Work Phone: [facility] 10-13-2024 09:38-0400 Body weight 97.7 kg Lindsey Pearl DO Work Phone: [facility] 10-13-2024 09:38-0400 Diastolic blood pressure 94 mm[Hg] Lindsey Pearl DO Work Phone: [facility] 10-13-2024 09:38-0400 Heart rate 119 /min Lindsey Pearl DO Work Phone: [facility] 10-13-2024 09:38-0400 Systolic blood pressure 148 mm[Hg] Lindsey Pearl DO Work Phone: [facility] 09-09-2024 10:05-0500 Body mass index (BMI) [Ratio] 39.17 kg/m2 Magno Rebeka DO Work Phone: [facility] 09-09-2024 10:05-0500 Body weight 100.3 kg Magno Rebeka DO Work Phone: [facility] 09-09-2024 10:05-0500 Diastolic blood pressure 70 mm[Hg] Magno Rebeka DO Work Phone: [facility] 09-09-2024 10:05-0500 Systolic blood pressure 120 mm[Hg] Magno Rebeka DO Work Phone: [facility] 08-12-2024 08:44-0500 Body mass index (BMI) [Ratio] 40.39 kg/m2 Mirela SCHAEFFER Work Phone: [facility] 08-12-2024 08:44-0500 Body weight 103.42 kg Mirela SCHAEFFER Work Phone: [facility] 08-12-2024 08:44-0500 Diastolic blood pressure 72 mm[Hg] Mirela SCHAEFFER Work Phone: [facility] 08-12-2024 08:44-0500 Systolic blood pressure 122 mm[Hg] Mirela SCHAEFFER Work Phone: [facility] 07-15-2024 09:30-0500 Body mass index (BMI) [Ratio] 41.77 kg/m2 Magno Rebeka DO Work Phone: [facility] 07-15-2024 09:30-0500 Body weight 106.96 kg Magno Rebeka DO Work Phone: [facility] 07-15-2024 09:30-0500 Diastolic blood pressure 70 mm[Hg] Magno Rebeka DO Work Phone: [facility] 07-15-2024 09:30-0500 Systolic blood pressure 130 mm[Hg] Magno Rebeka DO Work Phone: [facility] 06-14-2024 13:56-0500 Body mass index (BMI) [Ratio] 41.63 kg/m2 Magno Rebeka DO Work Phone: [facility] 06-14-2024 13:56-0500 Body weight 106.59 kg Magno Rebeka DO Work Phone: [facility] 06-14-2024 13:56-0500 Diastolic blood pressure 68 mm[Hg] Magno Rebeka DO Work Phone: [facility] 06-14-2024 13:56-0500 Systolic blood pressure 110 mm[Hg] Magno Rebeka DO Work Phone: [facility] 05-28-2024 08:40-0400 Body height 160.02 cm [facility] 05-28-2024 08:40-0400 Body mass index (BMI) [Ratio] 42.2 kg/m2 [facility] 05-28-2024 08:40-0400 Body temperature 95.3 [degF] [facility] 05-28-2024 08:40-0400 Body weight 108.12 kg [facility] 05-28-2024 08:40-0400 Diastolic blood pressure 74 mm[Hg] [facility] 05-28-2024 08:40-0400 Heart rate 89 /min [facility] 05-28-2024 08:40-0400 SaO2% (BldA) [Mass fraction] 98 % [facility] 05-28-2024 08:40-0400 Systolic blood pressure 122 mm[Hg] [facility] 04-29-2024 08:58-0400 Body mass index (BMI) [Ratio] 41.7 kg/m2 Magno Rebeka DO Work Phone: [facility] 04-29-2024 08:58-0400 Body weight 106.78 kg Magno Rebeka DO Work Phone: [facility] 04-29-2024 08:58-0400 Diastolic blood pressure 74 mm[Hg] Magno Rebeka DO Work Phone: [facility] 04-29-2024 08:58-0400 Systolic blood pressure 116 mm[Hg] Magno Rebeka DO Work Phone: [facility] 04-01-2024 09:48-0400 Body height 160 cm Magno Rebeka DO Work Phone: [facility] 04-01-2024 09:48-0400 Body mass index (BMI) [Ratio] 41.42 kg/m2 Magno Rebeka DO Work Phone: [facility] 04-01-2024 09:48-0400 Body weight 106.05 kg Magno Rebeka DO Work Phone: [facility] 04-01-2024 09:48-0400 Diastolic blood pressure 70 mm[Hg] Magno Rebeka DO Work Phone: [facility] 04-01-2024 09:48-0400 Systolic blood pressure 110 mm[Hg] Magno Rebeka DO Work Phone: [facility] 08-12-2023 13:00-0500 Body height 160.02 cm Indy Gilbert Other [facility] Other 08-12-2023 13:00-0500 Body mass index (BMI) [Ratio] 40.92 kg/m2 Indy Gilbert Other [facility] Other 08-12-2023 13:00-0500 Body weight 104.78 kg Indy Gilbret Other [facility] Other 08-12-2023 13:00-0500 Diastolic blood pressure 84 mm[Hg] Indy Gilbert Other [facility] Other 08-12-2023 13:00-0500 SaO2% (BldA) [Mass fraction] 98 % Indy Gilbert Other [facility] Other 08-12-2023 13:00-0500 Systolic blood pressure 128 mm[Hg] Indy Gilbert Other [facility] Other 07-24-2023 13:00-0500 Body height 160.02 cm Indy Richardsonr Other [facility] Other 07-24-2023 13:00-0500 Body mass index (BMI) [Ratio] 40.56 kg/m2 Indy Silveracher Other [facility] Other 07-24-2023 13:00-0500 Body weight 103.87 kg Indy Szymanskirheaacher Other [facility] Other 07-24-2023 13:00-0500 Diastolic blood pressure 84 mm[Hg] Indy Nadeemacher Other [facility] Other 07-24-2023 13:00-0500 SaO2% (BldA) [Mass fraction] 100 % Indy Nadeemacher Other [facility] Other 07-24-2023 13:00-0500 Systolic blood pressure 130 mm[Hg] Indy Nadeemacher Other [facility] Other 01-22-2023 13:00-0400 Body height 160.02 cm Indy Nadeemacher Other [facility] Other 01-22-2023 13:00-0400 Body mass index (BMI) [Ratio] 39.32 kg/m2 Indy Nessarbacher Other [facility] Other 01-22-2023 13:00-0400 Body weight 100.7 kg Indy Szymanskirheaacher Other [facility] Other 01-22-2023 13:00-0400 Diastolic blood pressure 78 mm[Hg] Indy Silverpaty Other [facility] Other 01-22-2023 13:00-0400 Systolic blood pressure 128 mm[Hg] Indy Gilbert Other [facility] Other 07-21-2022 10:30-0500 Body height 160.02 cm Yessenia Gross Other [facility] Other 07-21-2022 10:30-0500 Body mass index (BMI) [Ratio] 37.2 kg/m2 Yessenia Gross Other [facility] Other 07-21-2022 10:30-0500 Body temperature 97.9 [degF] Yessenia Gross Other [facility] Other 07-21-2022 10:30-0500 Body weight 95.26 kg Yessenia Gross Other [facility] Other 07-21-2022 10:30-0500 Respiratory rate 18 /min Yessenia Gross Other [facility] Other 07-21-2022 10:30-0500 SaO2% (BldA) [Mass fraction] 99 % Yessenia Gorss Other [facility] Other 05-19-2022 10:15-0400 Body height 160.02 cm Lili Downing Other [facility] Other 05-19-2022 10:15-0400 Body mass index (BMI) [Ratio] 37.2 kg/m2 Lili Downing Other [facility] Other 05-19-2022 10:15-0400 Body temperature 97.6 [degF] Lili Chang Other [facility] Other 05-19-2022 10:15-0400 Body weight 95.26 kg Lili Chang Other [facility] Other 05-19-2022 10:15-0400 Respiratory rate 18 /min Lili Chang Other [facility] Other 05-19-2022 10:15-0400 SaO2% (BldA) [Mass fraction] 99 % Lili Chang Other [facility] Other 11-04-2021 10:20-0400 Body height 160.02 cm Ailyn Shepardmond Other [facility] Other 11-04-2021 10:20-0400 Body mass index (BMI) [Ratio] 37.2 kg/m2 Ailyn Kamryn Other [facility] Other 11-04-2021 10:20-0400 Body temperature 97.2 [degF] Ailyn Shepardmond Other [facility] Other 11-04-2021 10:20-0400 Body weight 95.26 kg Ailyn Kamryn Other [facility] Other 11-04-2021 10:20-0400 Respiratory rate 18 /min Ailyn Kamryn Other [facility] Other 11-04-2021 10:20-0400 SaO2% (BldA) [Mass fraction] 97 % Ailyn Kamryn Other [facility] Other 08-08-2021 13:15-0500 Body height 160.02 cm Jeramy Fuchs Other [facility] Other 08-08-2021 13:15-0500 Body mass index (BMI) [Ratio] 37.73 kg/m2 Jeramy Fuchs Other [facility] Other 08-08-2021 13:15-0500 Body temperature 98.6 [degF] Jeramy Fuchs Other [facility] Other 08-08-2021 13:15-0500 Body weight 96.62 kg Jeramy Fuchs Other [facility] Other 08-08-2021 13:15-0500 Respiratory rate 16 /min Jeramy Fuchs Other [facility] Other 08-08-2021 13:15-0500 SaO2% (BldA) [Mass fraction] 98 % Jeramy Fuchs Other [facility] Other Encounters Encounter Date Encounter Type Care Provider Facility Start: 12-20-2024 End: 12-20-2024 Bamboo flowsheet Tierney Bass [facility] Work Phone: [facility] Start: 12-20-2024 End: 12-20-2024 Bamboo flowsheet Tierney Bass [employer]ILITY PSYCHIATRIST Work Phone: [facility] Start: 12-20-2024 End: 12-20-2024 Office outpatient visit 15 minutes Tierney Bass [facility] Work Phone: [facility] Comment on above: Encounter for weight management Start: 12-20-2024 End: 12-20-2024 ambulatory TIERNEY BASS Not Available Start: 12-07-2024 End: 12-07-2024 ambulatory [facility] Work Phone: Start: 12-07-2024 End: 12-07-[address] [facility] Work Phone: Start: 11-29-2024 End: 11-29-2024 Patient encounter status Indy Silverpaty INSURANCE CLAIMS EXAMINER-CORRECTIONAL FACILITY PSYCHIATRIST Work Phone: [facility] Start: 11-29-2024 Encounter for genera l adult medical examination without abnormal findings [facility] Start: 11-29-2024 End: 11-29-2024 Orders Only Indy Ofelia INSURANCE CLAIMS EXAMINER-CORRECTIONAL FACILITY PSYCHIATRIST Work Phone: [facility] Comment on above: Encounter for genera l adult medical examination without abnormal findings (Primary Dx) Start: 11-23-2024 Patient encounter status [facility] Start: 11-03-2024 End: 11-03-2024 Bamboo flowsheet Magno Rebeka DO Work Phone: [facility] Start: 11-03-2024 End: 11-10-2024 Bamboo flowsheet Magno Rebeka DO Work Phone: [facility] Start: 11-03-2024 End: 11-10-2024 Clinisync Result Encounter Magno Rebeka DO Work Phone: [facility] Unsolicited Start: 11-03-2024 End: 11-03-2024 ambulatory MAGNO REBEKA Not Available Start: 10-13-2024 End: 10-13-2024 ambulatory LINDSEY PEARL [facility] Start: 10-13-2024 End: 10-13-2024 Office outpatient new 30 minutes Lindsey Pearl DO Work Phone: [facility] Comment on above: Fibroadenoma of left breast (Primary Dx); History of benign phyllodes neoplasm of breast; Family history of malignant neoplasm of ovary in first degree relative Start: 10-06-2024 End: 10-06-2024 Telephone encounter Belmarietta Padilla [facility] Start: 10-04-2024 End: 10-04-2024 ambulatory Laila Nichole [facility] Start: 09-29-2024 End: 09-29-2024 ambulatory MAGNO R [facility] Start: 09-09-2024 End: 09-09-2024 Bamboo flowsheet Mirela SCHAEFFER Work Phone: [facility] Start: 09-09-2024 End: 09-09-2024 Bamboo flowsheet Mirela SCHAEFFER Work Phone: [facility] Start: 09-09-2024 End: 09-09-2024 Office outpatient visit 15 minutes Magno Rebeka DO Work Phone: [facility] Comment on above: Encounter for weight management; control counseling; Phyllodes tumor of breast; Other specified disorders of breast Start: 09-09-2024 End: 09-09-2024 ambulatory MAGNO REBEKA Not Available Start: 08-12-2024 End: 08-12-2024 Bamboo flowsheet Mirela SCHAEFFER Work Phone: [facility] Start: 08-12-2024 End: 08-12-2024 Bamboo flowsheet Mirela SCHAEFFER Work Phone: [facility] Start: 08-12-2024 End: 08-12-2024 Patient encounter procedure Mirela SCHAEFFER Work Phone: [facility] Comment on above: Weight gain; Encounter for weight management Start: 08-12-2024 End: 08-12-2024 ambulatory MIRELA PRESTON Not Available Start: 07-15-2024 End: 07-15-2024 Bamboo flowsheet Magno Rebeka DO Work Phone: [facility] Start: 07-15-2024 End: 07-15-2024 Bamboo flowsheet Magno Rebeka DO Work Phone: [facility] Start: 07-15-2024 End: 07-15-2024 Office outpatient visit 15 minutes Magno Rebeka DO Work Phone: [facility] Comment on above: Encounter for weight management Start: 07-15-2024 End: 07-15-2024 ambulatory MAGNO REBEKA Not Available Start: 06-14-2024 End: 06-14-2024 Office outpatient visit 15 minutes Magno Rebeka DO Work Phone: [facility] Comment on above: Encounter for initia l prescription of contraceptives, unspecified contraceptive; Mastitis; Encounter for weight management; Breast tenderness in female Start: 06-14-2024 End: 06-14-2024 ambulatory MAGNO REBEKA Not Available Start: 05-28-2024 End: 05-28-2024 ambulatory [facility] Work Phone: Start: 05-28-2024 End: 05-28-2024 Patient encounter procedure [facility] Work Phone: Start: 04-29-2024 End: 04-29-2024 Bamboo flowsheet Magno Rebeka DO Work Phone: [facility] Start: 04-29-2024 End: 04-29-2024 Bamboo flowsheet Magno Rebeka DO Work Phone: [facility] Start: 04-29-2024 End: 04-29-2024 Office outpatient visit 10 minutes Magno Rebeka DO Work Phone: [facility] Comment on above: Intrauterine device surveillance Start: 04-29-2024 End: 04-29-2024 ambulatory MAGNO REBEKA Not Available Start: 04-01-2024 End: 04-01-2024 Patient encounter procedure Magno Rebeka DO Work Phone: [facility] Comment on above: Encounter for insert ion of intrauterine contraceptive device (IUD); Encounter for insertion of mirena IUD Start: 04-01-2024 End: 04-01-2024 ambulatory MAGNO REBEKA Not Available Start: 03-22-2024 End: 03-22-2024 ambulatory MAGNO REBEKA Not Available Start: 08-12-2023 End: 08-12-2023 ambulatory Indy Silveracher Other [facility] Other Start: 08-12-2023 Office outpatient vi sit 15 minutes Indy Silveracher [facility] Start: 07-24-2023 End: 07-24-2023 ambulatory Indy Silveracher Other [facility] Other Start: 07-24-2023 Office outpatient vi sit 25 minutes Indy Silveracher [facility] Start: 01-22-2023 End: 01-22-2023 ambulatory Indy Silveracher Other [facility] Other Start: 01-22-2023 Office outpatient vi sit 15 minutes Indy Szymanskirbacher [facility] Start: 01-16-2023 End: 01-16-2023 ambulatory Indy Silveracher Other [facility] Other Start: 01-16-2023 Telephone encounter Indy Szymanskirheabarry her [facility] Start: 07-21-2022 End: 07-21-2022 ambulatory Yessenia Renato Other [facility] Other Start: 07-21-2022 Office outpatient vi sit 25 minutes Yessenia Gross [facility] Start: 05-20-2022 End: 05-20-2022 ambulatory Indy Silveracher Other [facility] Other Start: 05-20-2022 Telephone encounter Indy Ambrose her [facility] Start: 05-19-2022 End: 05-19-2022 ambulatory Lili Downing Other [facility] Other Start: 05-19-2022 Office outpatient vi sit 25 minutes Lili Downing [facility] Start: 11-04-2021 End: 11-04-2021 ambulatory Ailyn Shepardmond Other [facility] Other Start: 11-04-2021 Office outpatient vi sit 15 minutes Ailyn Harry [facility] Start: 08-08-2021 End: 08-08-2021 ambulatory Jeramy Fuchs Other [facility] Other Start: 08-08-2021 Office outpatient vi sit 15 minutes Jeramy Fuchs [facility] Start: 07-26-2021 End: 07-26-2021 ambulatory Indy Gilbert Other [facility] Other Start: 07-26-2021 Telephone encounter Indy Ambrose her [facility] [place] [facility] Start: 07-25-2021 End: 07-25-2021 ambulatory Indy Silveracher Other [facility] Other Start: 07-25-2021 Telephone encounter Indy Arnol her [facility] Start: 07-24-2021 End: 07-24-2021 ambulatory Indy Szymanskirbacher Other [facility] Other Start: 07-24-2021 Telephone encounter Indy Arnol her [facility] Start: 07-11-2021 End: 07-11-2021 ambulatory Indy Szymanskirbacher Other [facility] Other Start: 07-11-2021 Telephone encounter Indy Arnol her [facility] Start: 06-05-2021 End: 06-05-2021 ambulatory Indy Szymanskirbacher Other [facility] Other Start: 06-05-2021 Office outpatient vi sit 15 minutes Indy Gilbert [facility] Start: 05-19-2020 End: 05-20-2020 Patient encounter procedure INDY GILBERT Facility:[facility] Start: 07-31-2019 End: 07-31-2019 Patient encounter procedure KRISH GO Facility:[facility] Start: 03-03-2018 End: 03-04-2018 Patient encounter Rowdy Dennison Facility:[id number] Start: 02-24-2018 End: 02-25-2018 Patient encounter Rowdy Dennison Facility:[id number] Procedures Date Procedure Procedure Detail Performing Clinician Start: 11-03-2024 IGP,APTIMA HPV,AGE GDLN Magno Rebeka DO Work Phone: Start: 11-03-2024 Microscopic observat ion [Identifier] in Cervix by Cyto stain Indy Gilbert 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 Start: 03-21-2021 Antibody screen Comment on above: Result Comment: PERF ORMED BY: [facility] [address] [place] [address] PATHOLOGIST TUBE TRAILER FILLER CORY YAN M.D. H/O: section Status pos t delivery Comment on above: Problem List clean-u p per request of Phys. EHR Cmte Plan of Treatment Date Care Activity Detail Author Start: 03-24-2031 DTaP,Tdap and Td Vaccines (2 - Td or Tdap) DTaP,Tdap and Td Vaccines (2 - Td or Tdap) [facility] Start: 11-09-2025 End: 11-09-2025 Patient encounter procedure [facility] Start: 03-12-2026 Adult BMI Screening Adult BMI Screen ing [facility] Start: 10-13-2025 Tobacco Screening Tobacco Screening [facility] Start: 09-29-2025 Adult BMI Screening Adult BMI Screen ing [facility] Start: 04-04-2025 Influenza vaccination Influenza Vacc ine [facility] Start: 03-14-2025 End: 03-14-2025 Patient encounter procedure 03/14/2025 9:30 AM EDT Office Visit [facility] [address] [place] [address] Mirela Preston PA [address] [place], [place] [address] [facility] Start: 12-20-2024 End: 12-20-2024 Patient encounter procedure 12/20/2024 1:30 PM EDT Office Visit [facility] [address] [place] [address] Tierney Bass, BELIA [address] [place] [address] Arrived [facility] Comment on above: Arrived Start: 11-03-2024 End: 11-03-2024 Patient encounter procedure [facility] Comment on above: Arrived Start: 10-13-2024 End: 10-13-2024 Patient encounter procedure 10/13/2024 9:00 AM EDT Office Visit [facility] [address] [place], [place] [id number] [place] [address] [place] [address] [id number] [facility] Start: 09-09-2024 End: 11-07-2025 MG Breast - bilateral Diagnostic Bilateral diagnostic mammogram Imaging Routine Phyllodes tumor of breast Other specified disorders of breast Expected: 09/09/2024 (Approximate), Expires: 11/07/2025 [facility] Work Phone: Comment on above: Expected: 09/09/2024 (Approximate), Expires: 11/07/2025 Start: 09-09-2024 End: 09-09-2024 Patient encounter procedure 09/09/2024 9:50 AM EST Office Visit [facility] [address] [place] [address] Mirela Preston PA [address] [place], [place] [id number] Arrived [facility] Comment on above: Arrived Start: 08-12-2024 End: 08-12-2024 Patient encounter procedure [facility] Comment on above: Arrived Start: 07-15-2024 End: 07-15-2024 Patient encounter procedure [facility] Comment on above: Arrived Start: 04-29-2024 End: 04-29-2024 Patient encounter procedure [facility] Comment on above: Arrived Start: 04-04-2024 Influenza vaccination Influenza Vacc ine [facility] Start: 2014 Screening for malign ant neoplasm of cervix Pap Smear [facility] Start: 12-26-2011 Adult BMI Follow Up Plan Adult BMI Follow Up Plan [facility] Start: 2005 Depression Screening [facility] Start: 2005 Tobacco Screening Tobacco Screening [facility] End: 11-29-2025 CBC W Auto Differential panel - Blood CBC auto differential Lab STAT Encounter for general adult medical examination without abnormal findings 1 Occurrences starting 11/29/2024 until 11/29/2025 [employer] Work Phone: Comment on above: 1 Occurrences starti ng 11/29/2024 until 11/29/2025 CBC W Auto Different ial panel - Blood CBC auto differential Lab STAT Encounter for general adult medical examination without abnormal findings 11/29/2024 8:19 AM EDT [facility] End: 11-29-2025 Comprehensive metabolic 2000 panel - Serum or Plasma Comprehensive metabolic panel Lab Routine Encounter for general adult medical examination without abnormal findings 1 Occurrences starting 11/29/2024 until 11/29/2025 [facility] Comment on above: 1 Occurrences starti ng 11/29/2024 until 11/29/2025 Comprehensive metabo lic 2000 panel - Serum or Plasma Comprehensive metabolic panel Lab Routine Encounter for general adult medical examination without abnormal findings 11/29/2024 8:19 AM EDT [facility] End: 11-29-2025 Lipid 1995 panel - Serum or Plasma Lipid profile Lab Routine Encounter for general adult medical examination without abnormal findings 1 Occurrences starting 11/29/2024 until 11/29/2025 [facility] Comment on above: 1 Occurrences starti ng 11/29/2024 until 11/29/2025 Lipid 1995 panel - S jenny or Plasma Lipid profile Lab Routine Encounter for general adult medical examination without abnormal findings 11/29/2024 8:19 AM EDT [facility] Immunizations Immunization Date Immunization Notes Care Provider Fa kimberlyty 03-24-2021 tetanus toxoid, redu ugo diphtheria toxoid, and acellular pertussis vaccine, adsorbed [facility] Payers Date Payer Category Payer Commercial Managed C are - POS [employer] [id number] 2024 Managed Care HMO (unspecified) [id number] 2024 Private Health Insurance [id number] 1993 Unknown [id number] [id number] 9.2.593 1993 Unknown [id number] 2.840.1.309063.3.57 9.2.593 1993 Unknown [id number] 2.16.840.1.697723.3.57 9.2.1286 1993 Unknown [id number] 2.16840.1.762000.3.57 9.2.128 1993 Unknown [id number] 2.16840.1.797520.3.57 9.2.128 1993 Unknown [id number] 2.16840.1.638342.3.57 9.2.128 1993 Unknown [id number] 2.16840.1.568295.3.57 9.2.128 1993 Unknown [id number] 2.840.1.473673.3.57 9.2.128 1993 Unknown [id number] 2.840.1.240409.3.57 9.2.1258 1993 Unknown [id number] 2.840.1.832912.3.57 9.2.1258 1993 Unknown [id number] 2.840.1.017052.3.57 9.2.1258 1993 Unknown [id number] 2.840.1.582245.3.57 9.2.1258 1993 Unknown [id number] 2.840.1.896538.3.57 9.2.1258 1993 Unknown [id number] 2.840.1.679866.3.57 9.2.1258 1993 Unknown [id number] 2.840.1.623011.3.57 9.2.125 1993 Unknown [id number] 2.16840.1.468413.3.57 9.2.125 1993 Unknown [id number] 2.16840.1.271753.3.57 9.2.1259 1959 Unknown [id number] Blue Cross Blue Shield [id number] Blue Cross Blue Shield [id number] Private Health Insurance [id number] [id number] Private Health Insurance [employer] [id number] Self-pay Self Pay [id number] Unknown HCAP/HFA/FAP Active [id number] Social History Date Type Detail Facility Start: 09-23-2023 End: 03-22-2024 Sex Assigned At [facility] Other Start: 08-27-2021 End: 09-23-2023 Tobacco smoking status CTIS Never smoked tobacco (finding) [facility] Start: 1995 Sex Assigned At Female [facility] Start: 09-23-2023 End: 10-13-2024 Tobacco use and exposure Smokeless tobacco non-user [facility] Start: 06-14-2024 End: 11-03-2024 Alcoholic beverage intake Current drinker of alcohol (finding) [facility] Start: 09-23-2023 End: 03-22-2024 History of Social function [facility] Start: 09-23-2023 Alcohol Comment caffeine: 1-2 cups per day coffee, soda [facility] Start: 1995 Sex assigned at Not on file [facility] Tobacco smoking status [facility] Tobacco smoking consumption unknown [facility] Start: 12-23-2022 End: 12-07-2024 Sex Female (finding) [facility] Start: 10-13-2024 Alcoholic beverage intake Ex-drinker (finding) [facility] Within the past 12 months we worried whether our food would run out before we got money to buy more. Never True [facility] NEGATED: Highlighted row [facility] Clinical Notes 03-04-2021 to 12-20-2024 Tierney Bass, BELIA - 12/20/2024 1:30 PM Kandi Pearl DO - 10/13/2024 9:00 AM EDTTelephone Encounter - Belmarietta Ennis RN - 10/06/2024 12:45 PM EST Note Date & Type Note Facility 12-20-2024 History of Presen t illness Narrative Reason for Appointment: Patient ID: Siva Weems is a 28 y.o. female who presents for Weight Management Patient presents today for a weight management consultation. Patient has been prescribed Adipex and she is here for her 3rd prescription. Today's Vitals: Estimated body mass index is 36.87 kg/m as calculated from the following: Height as of 04/01/24: 5' 3 . Weight as of this encounter: 208 lb 2 oz. Previous Weight/BMI: Wt Readings from Last 3 Encounters: 12/20/24 208 lb 2 oz 11/03/24 211 lb 1.9 oz 09/09/24 221 lb 1.9 oz BMI Readings from Last 3 Encounters: 12/20/24 36.87 kg/m 11/03/24 37.40 kg/m 09/09/24 39.17 kg/m Allergies as of 12/20/2024 - Reviewed 12/20/2024 Allergen Reaction Noted Amoxicillin Itching, Rash, and Shortness of breath 10/29/2023 Cinnamon Anaphylaxis 10/29/2023 Red dye 01/25/2021 Red dye #40 (allura red) Itching and Swelling 10/29/2023 Past Medical History: Diagnosis Date Breast lump Chicken pox Family history of cancer Heart disease Hypertension (CMS/HCC) Low iron Migraines (CMS/HCC) Past Surgical History: Procedure Laterality Date BI US GUIDED BREAST LOCALIZATION AND BIOPSY LEFT Left 10/04/2024 BI US GUIDED BREAST LOCALIZATION AND BIOPSY LEFT 10/04/2024 BREAST LUMPECTOMY Right x2 in right breast, benign, [facility] SECTION, LOW TRANSVERSE 03/22/2021 CHOLECYSTECTOMY 08/27/2021 Lap TONSILLECTOMY WISDOM TOOTH EXTRACTION 2020 wisdom teeth Review of Systems: Review of Systems Constitutional: Negative. HENT: Negative. Eyes: Negative. Respiratory: Negative. Cardiovascular: Negative. Gastrointestinal: Negative. Genitourinary: Negative. Musculoskeletal: Negative. Skin: Negative. Neurological: Negative. All other systems reviewed and are negative. Hematological: Negative. Endocrine: Negative. Allergic/Immunologic: Negative. Objective Physical Exam Constitutional: Appearance: Normal appearance. She is well-developed. Cardiovascular: Rate and Rhythm: Normal rate and regular rhythm. Pulmonary: Effort: Pulmonary effort is normal. Breath sounds: Normal breath sounds. Abdominal: General: Bowel sounds are normal. There is no distension. Palpations: Abdomen is soft. Tenderness: There is no abdominal tenderness. There is no guarding or rebound. Musculoskeletal: General: No swelling. Normal range of motion. Right lower leg: No edema. Left lower leg: No edema. Neurological: Mental Status: She is alert and oriented to person, place, and time. Skin: General: Skin is warm and dry. Psychiatric: Mood and Affect: Mood normal. Behavior: Behavior normal. Vitals and nursing note reviewed. Exam conducted with a tank furnace operator present. Assessment/Plan Encounter Diagnosis Name Primary? Encounter for weight management Adipex: Patient presents today for 3rd Adipex prescription. Patient desires additional weigh loss and she is currently taking metformin along with working out to achieve further results. Weight and blood pressure has been captured and I have discussed/reiterated the importance of keeping a food journal, proper nutrition/diet, and exercise regimen. Patient verbalized understanding. Patient has lost more than 5% of her initial body weight Follow Up: Patient to continue Adipex as prescribed, she has continued with exercise and healthy dietary changes. Documented by: Meche Contreras MA on behalf of Tierney Bass NP documented in this encounter [facility] 10-13-2024 History of Presen t illness Narrative Images from the original note were not included. [facility] [address] [facility] [id number] CONSULT NOTE CHIEF COMPLAINT Chief Complaint Patient presents with Breast Mass Fibroadenoma of left breast, biopsy performed 10/04/24, referred by Dr. Rebeka Justin Inna Weems is a 28 y.o. female who presents along with her with complaints of abnormal ultrasound of the left breast for which he had a ultrasound-guided biopsy which showed a fibroadenoma. 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 She had pain at that time which then led to studies of an ultrasound showing a mass and she had a benign phyllodes tumor removed at that time>She has had no further treatment since then. She was told to have mammograms done yearly but has not had 1 until recently. She has not had a mammogram or ultrasound in over 10 years. She does not perform routine breast self examinations. She was age 10 with the onset of menarche. Her last menses was 10/09/2024. She is 1 para 1. She was age 26 with delivery of her 1st child. She has had a prior and left breast excisions in 2013, 2014 on the right breast. She was on hormonal control but now was switched to nonhormonal control. She denies any nipple discharge. Her family history is positive for ovarian cancer in her mother who is living at age 55 but was diagnosed between the ages of 38 and 41. She has a maternal aunt who has had breast cancer. She does not perform routine breast self examinations. She has had mastitis of the right breast 3 times within the last 6 months and thought she felt a lump in the right axilla for which ultrasound was performed but was negative. She denies any history of autoimmune or immune deficiency diseases. She has not breast fed in over 2 years. 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 All mammograms ultrasounds and biopsy reports were reviewed by me. In the right axilla on ultrasound there was a inclusion cyst. She stated that she felt something but it has gone away and does not feel any further lumps. ] [email or web address] [address] [place] [address] Surgical Pathology Consultation Patient Name:SIVA WEEMS:1995 (Age: 28)Gender:FTaken:10/04/2024Reporte d:10/07/2024Physician(s):Magno Staley DO ([phone])Copy To:MD OFELIA Lam JENNIFERAccession #:[id number]. Rec. #:[id number]: #[id number] Final Pathologic Diagnosis Left breast,6 o'clock, 3 cmfn, mass, biopsy: BENIGN: Fibroadenoma Report Electronically Signed Out nsk/10/07/2024Melonie Lundberg MD Reason for Exam Dx: Phyllodes tumor of breast [D48.60 (ICD-10-CM)]; Other specified disorders of breast [N64.89 (ICD-10-CM)] PACS Images Show images for Mammography diagnostic bilateral with CAD Follow-Ups No Additional Follow-Up Needed Recommendation Procedure Ordered Performed Authorizing Biopsy Ultrasound biopsy breast initial left 09/21/2024 10/04/2024 Magno Staley DO Contains abnormal data Mammography diagnostic bilateral with CAD Order: [id number] Status: Final result Visible to patient: Yes (not seen) Next appt: None Dx: Other specified disorders of breast; ... 0 Result Notes Assessment Overall 4 - Suspicious Breast Density Overall Breast Composition c - Heterogeneously dense Details Reading Physician Reading Date Result Priority Yogi Napier MD [phone] 09/29/2024 Routine Physician Responsible for MQSA Outcome Reason Yogi Napier MD Signed Narrative & Impression SIVA WEEMS 1995 [id number], [id number], [id number] EXAM: MAMM DIAGNOSTIC BILATERAL W CAD, US [...] on 09/29/2024 9:23 AM 4 c BIOPSY FDA Accredited Performing Facility: [facility] [place] [facility] [address], [facility] [id number] Exam Ended: 09/29/24 08:24 EST Last Resulted: 09/29/24 09:23 EST Reason for Exam Abnormal Mammogram Dx: Phyllodes tumor of breast [D48.60 (ICD-10-CM)]; Other specified disorders of breast [N64.89 (ICD-10-CM)] PACS Images Show images for Ultrasound breast limited left Follow-Ups No Additional Follow-Up Needed Recommendation Procedure Ordered Performed Authorizing Biopsy Ultrasound biopsy breast initial left 09/29/2024 10/04/2024 Magno Staley DO Contains abnormal data Ultrasound breast limited left Order: [id number] Status: Final result Visible to patient: Yes (seen) Next appt: None Dx: Other specified disorders of breast; ... 0 Result Notes Assessment Overall Left 4 - Suspicious 4 - Suspicious Breast Density Overall Breast Composition c - Heterogeneously dense Details Reading Physician Reading Date Result Priority Yogi Napier MD [phone] 09/29/2024 Routine Physician Responsible for MQSA Outcome Reason Yogi Napier MD Signed Narrative & Impression SIVA WEEMS 1995 [id number], [id number], [id number] EXAM: MAMM DIAGNOSTIC BILATERAL W CAD, US [...] on 09/29/2024 9:23 AM 4 c BIOPSY Exam Ended: 09/29/24 09:15 EST Last Resulted: 09/29/24 09:23 EST Reason for Exam Right Axilla Lump Dx: Lump of axilla, right [R22.31 (ICD-10-CM)] PACS Images Show images for Ultrasound axilla (breast) right limited Follow-Ups No Additional Follow-Up Needed Recommendation Procedure Ordered Performed Authorizing Biopsy Ultrasound biopsy breast initial left 09/29/2024 10/04/2024 Magno Staley DO Contains abnormal data Ultrasound axilla (breast) right limited Order: [id number] Status: Final result Visible to patient: Yes (not seen) Next appt: None Dx: Lump of axilla, right 0 Result Notes Assessment Overall Right 4 - Suspicious 4 - Suspicious Breast Density Overall Breast Composition c - Heterogeneously dense Details Reading Physician Reading Date Result Priority Yogi Napier MD [phone] 09/29/2024 Routine Physician Responsible for MQSA Outcome Reason Yogi Napier MD Signed Narrative & Impression SIVA WEEMS 1995 [id number], [id number], [id number] EXAM: MAMM DIAGNOSTIC BILATERAL W CAD, US [...] on 09/29/2024 9:23 AM 4 c BIOPSY Exam Ended: 09/29/24 09:15 EST Last Resulted: 09/29/24 09:23 EST MEDICATION Current Outpatient Medications: ascorbic acid, vitamin C, (VITAMIN C) 1000 mg tablet, Take 1 tablet (1,000 mg total) by mouth in the morning., Disp: , Rfl: busPIRone (BUSPAR) 10 mg tablet, Take 1 tablet (10 mg total) by mouth in the morning and at bedtime., Disp: , Rfl: cholecalciferol, vitamin D3, (VITAMIN D3) 5,000 units capsule, Take 1 capsule (5,000 Units total) by mouth in the morning., Disp: , Rfl: ferrous sulfate 325 (65 FE) mg EC tablet, Take 1 tablet (325 mg total) by mouth daily with breakfast., Disp: , Rfl: magnesium glycinate 100 mg magnesium capsule, Take 100 mg by mouth in the morning., Disp: , Rfl: metFORMIN (GLUCOPHAGE) 500 mg tablet, Take 1 tablet (500 mg total) by mouth daily with breakfast., Disp: , Rfl: omega-3 acid ethyl esters (LOVAZA) 1 gram capsule, Take 1 capsule (1 g total) by mouth in the morning and 1 capsule (1 g total) before bedtime., Disp: , Rfl: phentermine (ADIPEX-P) 37.5 mg tablet, Take 1 tablet (37.5 mg total) by mouth every morning before breakfast., Disp: , Rfl: SLYND 4 mg (28) tablet, Take 1 tablet by mouth in the morning., Disp: , Rfl: ALLERGY Allergies Allergen Reactions Amoxicillin Itching, Rash and Shortness Of Breath Fd And C Red No.40 Anaphylaxis, Itching and Swelling Other Reaction(s): hives MEDICAL HISTORY Past Medical History: Diagnosis Date Anxiety Mastitis right breast Ovarian cyst left ovary Phyllodes tumor of breast 2013 and 2014 right breast removed SURGICAL HISTORY Past Surgical History: Procedure Laterality Date BREAST EXCISIONAL BIOPSY Right 2015 excisonal biopsy BREAST EXCISIONAL BIOPSY Right 2014 excisonal biopsy SECTION TONSILLECTOMY WISDOM TOOTH EXTRACTION SOCIAL HISTORY Social History Socioeconomic History Marital status: Spouse name: Not on file Number of children: Not on file Years of education: Not on file Highest education level: Not on file Occupational History Not on file Tobacco Use Smoking status: Never Smokeless tobacco: Never Vaping Use Vaping status: Never Used Substance and Sexual Activity Alcohol use: Not Currently Drug use: Not Currently Sexual activity: Yes Partners: Male control/protection: Pill Other Topics Concern Not on file Social History Narrative Not on file Social Drivers of Health Financial Resource Strain: Not on file Food Insecurity: No Food Insecurity (10/13/2024) Hunger Screening Food Insecurity - Worry: Never True Food Insecurity - Inability: Never True Transportation Needs: Not on file Physical Activity: Not on file Stress: Not on file Social Connections: Not on file Interpersonal Safety: Not on file Housing Instability: Not on file FAMILY HISTORY Family History Problem Relation Age of Onset Hypertension Mother Ovarian cancer Mother 45 - 50 Depression Mother Goiter Mother No Known Problems Father Breast cancer Maternal Aunt 30 - 39 Endometrial cancer Neg Hx REVIEW OF SYSTEMS: Constitutional: Denies fevers, denies recent illnesses. Rest review of systems negative except as above. PHYSICAL EXAM Constitutional: She is oriented to person, place, and time. Vital signs are normal. She appears well-developed and well-nourished. HEENT: Head: Normocephalic and atraumatic. Eyes: Conjunctivae, EOM and lids are normal. Neck: Trachea normal. Neck supple. No thyroid mass present. Cardiovascular: Normal rate and regular rhythm. Pulmonary/Chest: Effort normal and breath sounds normal. Breasts: Pendulous bilaterally with nipples everted. No palpable masses noted in either breast. She has bruising noted in the lower outer quadrant of her left breast from the recent ultrasound-guided biopsy. There is a scar in the upper outer quadrant of her right breast where she had previous lumpectomy for the phyllodes tumor and also a scar on the circumareolar area medially on the right breast. There is no supraclavicular axillary or cervical adenopathy appreciated bilaterally. She was examined in the sitting and supine positions with tank furnace operator present. Neurological: She is alert and oriented to person, place, and time. Skin: Skin is warm, dry and intact. Psychiatric: She has a normal mood and affect. Her speech is normal and behavior is normal. Cognition and memory are normal. IMPRESSION 1. Fibroadenoma left breast 2. 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 Family history of ovarian cancer in mother diagnosed between the ages of 38 and 41 currently living at 53 4. Obesity with BMI of 38 ASSESSMENT & PLAN Highly recommend routine breast self examinations once monthly after menses and having annual mammography screening. Fibroadenoma is benign finding and there is nothing palpable. She was told that it could grow with time or she could have other fibroadenomas appear in the future. She and her voiced understanding of the above.She may f/u prn with me. Evaluation included: Preparing to see the patient (e.g., review of tests) Obtaining and/or reviewing separately obtained history Performing a medically appropriate examination and/or evaluation Counseling and educating the patient/family/caregiver Referring and communicating with other health patient care coordinator Fibroadenoma of left breast [D24.2] Lindsey Pearl DO This note was created with the assistance of a speech recognition program. While intending to generate a timely document that accurately reflects the content of the visit, no guarantee can be provided that every grammatical or spelling mistake has been or will be identified or corrected. Thank you for your understanding. documented in this encounter [facility] 10-06-2024 Miscellaneous Notes Call placed to patient to check status following recent breast biopsy. Patient reports no problems. She was encouraged to contact the [facility] if she develops any new problems at biopsy site. Voices understanding. [facility]-06-[facility]24 Telephone encounter Note Call placed to patient to check status following recent breast biopsy. Patient reports no problems. She was encouraged to contact the Breast Center if she develops any new problems at biopsy site. Voices understanding. [facility] History of Presen t illness Narrative Reason for Appointment: Patient ID: Siva Weems is a 28 y.o. female who presents for No chief complaint on file. Patient presents today for Consult appointment. MEDICATIONS Current Outpatient Medications Medication Instructions Ascorbic Acid (vitamin C) 1000 MG tablet busPIRone (BUSPAR) 10 mg Cholecalciferol (Vitamin D) 125 MCG (5000 UT) capsule desogestrel-ethinyl estradiol (Apri) 0.15-30 MG-MCG tablet 1 tablet, Oral, Daily, Take 1 tablet by mouth daily ferrous sulfate 325 mg, 3 times daily with meals Magnesium 100 MG capsule metFORMIN (GLUCOPHAGE) 500 mg, Oral, Daily with breakfast omega-3 acid ethyl esters (LOVAZA) 1 g, 2 times daily ALLERGIES Allergies Allergen Reactions Amoxicillin Itching, Rash and Shortness of breath Cinnamon Anaphylaxis Red Dye Other Reaction(s): Swelling of Lip/Tongue/Throat Red Dye #40 (Allura Red) Itching and Swelling Other Reaction(s): hives PROBLEMS Active Ambulatory Problems Diagnosis Date Noted control counseling 03/22/2024 Pelvic pain in female 03/22/2024 Encounter for initial prescription of contraceptives 06/14/2024 Mastitis 06/14/2024 Encounter for weight management 06/14/2024 Resolved Ambulatory Problems Diagnosis Date Noted No Resolved Ambulatory Problems Past Medical History: Diagnosis Date Breast lump Chicken pox Family history of cancer Heart disease Hypertension (CMS/HCC) Low iron Migraines (CMS/HCC) HISTORY PAST MEDICAL HISTORY SOCIAL HISTORY Past Medical History: Diagnosis Date Breast lump Chicken pox Family history of cancer Heart disease Hypertension (CMS/HCC) Low iron Migraines (CMS/HCC) Social History Tobacco Use Smoking status: Never Smokeless tobacco: Never Substance Use Topics Alcohol use: Yes Comment: caffeine: 1-2 cups per day coffee, soda Drug use: Never FAMILY HISTORY Family History Problem Relation Name Age of Onset Heart disease Mother Diabetes Mother Thyroid cancer Mother Heart disease Father Heart disease Maternal Grandmother Heart disease Paternal Grandmother COPD Paternal Grandmother Alcohol abuse Paternal Grandfather SURGICAL HISTORY Past Surgical History: Procedure Laterality Date BREAST LUMPECTOMY Right x2 in right breast, benign, [facility] SECTION, LOW TRANSVERSE 03/22/2021 CHOLECYSTECTOMY 08/27/2021 Lap TONSILLECTOMY WISDOM TOOTH EXTRACTION 2019 wisdom teeth REVIEW OF SYSTEMS Review of Systems: Review of Systems All other systems reviewed and are negative. OBJECTIVE Objective: Physical Exam Genitourinary: Genitourinary Comments: Breast pain as well. Breasts: Breasts are soft. Right: Mass present. Vitals: Estimated body mass index is 39.17 kg/m as calculated from the following: Height as of 04/01/24: 5' 3 . Weight as of this encounter: 221 lb 1.9 oz. BP: 120/70 Patient's last menstrual period was 08/26/2024. ASSESSMENT & PLAN Patient presents for Adipex #3 and patient has done well and will be given a 90 day supply. Patient has right breast lump at 10 o'clock position & 1 cm in diameter. Patient given order to have Diagnostic mammogram along with breast US if indicated. Patient to return to clinic for annual appointment. Documented by Najma De Leon LPN on behalf of: Magno Staley DO documented in this encounter [facility] 08-12-2024 History of Presen t illness Narrative Reason for Appointment: Patient ID: Siva Weems is a 28 y.o. female who presents for Weight Management (Pt present today for Adipex #2 visit.) Patient presents today for a weight management consultation. Patient has been prescribed Adipex and she is here for her 2nd prescription. Today's Vitals: Estimated body mass index is 41.77 kg/m as calculated from the following: Height as of 04/01/24: 5' 3 . Weight as of 07/15/24: 235 lb 12.8 oz. Previous Weight/BMI: Wt Readings from Last 2 Encounters: 07/15/24 235 lb 12.8 oz 06/14/24 235 lb BMI Readings from Last 2 Encounters: 07/15/24 41.77 kg/m 06/14/24 41.63 kg/m Allergies as of 08/12/2024 - Reviewed 08/12/2024 Allergen Reaction Noted Amoxicillin Itching, Rash, and Shortness of breath 10/29/2023 Cinnamon Anaphylaxis 10/29/2023 Red dye 01/25/2021 Red dye #40 (allura red) Itching and Swelling 10/29/2023 Past Medical History: Diagnosis Date Breast lump Chicken pox Family history of cancer Heart disease Hypertension (CMS/HCC) Low iron Migraines (CMS/HCC) Past Surgical History: Procedure Laterality Date BREAST LUMPECTOMY Right x2 in right breast, benign, [facility] SECTION, LOW TRANSVERSE 03/22/2021 CHOLECYSTECTOMY 08/27/2021 Lap TONSILLECTOMY WISDOM TOOTH EXTRACTION 2020 wisdom teeth Assessment/Plan Encounter Diagnosis Name Primary? Weight gain Adipex: Patient presents today for 2nd Adipex prescription. Patients weight and blood pressure has been captured and discussed with the patient. I have discussed/reiterated the importance of keeping a food journal, proper nutrition/diet, and exercise regimen while taking Adipex. Patient verbalized understanding and was given a printed prescription signed by provider to take to their local pharmacy. Follow Up: Patient is to return to the office in 1 month for further evaluation to assess patient progress. Weight and blood pressure will need to be obtained in order for patient to receive 3rd prescription. Documented by: Randi Mahan MA on behalf of MAKSIM Gonzalez documented in this encounter [facility] 07-15-2024 History of Presen t illness Narrative Reason for Appointment: Patient ID: Siva Weems is a 28 y.o. female who presents for follow up medication Patient presents today for a weight management consultation. Patient desires to initiate Adipex. Initial Vitals for Adipex prescription #1: Estimated body mass index is 41.77 kg/m as calculated from the following: Height as of 04/01/24: 5' 3 . Weight as of this encounter: 235 lb 12.8 oz. Allergies as of 07/15/2024 - Reviewed 07/15/2024 Allergen Reaction Noted Amoxicillin Itching, Rash, and Shortness of breath 10/29/2023 Cinnamon Anaphylaxis 10/29/2023 Red dye 01/25/2021 Red dye #40 (allura red) Itching and Swelling 10/29/2023 Past Medical History: Diagnosis Date Breast lump Chicken pox Family history of cancer Heart disease Hypertension (CMS/HCC) Low iron Migraines (CMS/HCC) Past Surgical History: Procedure Laterality Date BREAST LUMPECTOMY Right x2 in right breast, benign, [facility] SECTION, LOW TRANSVERSE 03/22/2021 CHOLECYSTECTOMY 08/27/2021 Lap TONSILLECTOMY WISDOM TOOTH EXTRACTION 2020 wisdom teeth Review of Systems: Review of Systems Constitutional: Negative. HENT: Negative. Eyes: Negative. Respiratory: Negative. Cardiovascular: Negative. Gastrointestinal: Negative. Genitourinary: Negative. Musculoskeletal: Negative. Skin: Negative. Neurological: Negative. All other systems reviewed and are negative. Hematological: Negative. Endocrine: Negative. Allergic/Immunologic: Negative. Objective Physical Exam Constitutional: Appearance: Normal appearance. She is well-developed. Cardiovascular: Rate and Rhythm: Normal rate and regular rhythm. Pulmonary: Effort: Pulmonary effort is normal. Breath sounds: Normal breath sounds. Abdominal: General: Bowel sounds are normal. There is no distension. Palpations: Abdomen is soft. Tenderness: There is no abdominal tenderness. There is no guarding or rebound. Musculoskeletal: General: No swelling. Normal range of motion. Right lower leg: No edema. Left lower leg: No edema. Neurological: Mental Status: She is alert and oriented to person, place, and time. Skin: General: Skin is warm and dry. Psychiatric: Mood and Affect: Mood normal. Behavior: Behavior normal. Vitals and nursing note reviewed. Exam conducted with a tank furnace operator present. Assessment/Plan Encounter Diagnosis Name Primary? Encounter for weight management Adipex: Patient presents today for initial Adipex prescription. I have discussed in detail the importance of keeping a food journal, proper nutrition/diet, and exercise regimen while taking Adipex. Patient verbalized understanding and signed consents to initiate (Adipex) medication therapy. Patient was given a printed prescription signed by provider to take to their local pharmacy. Follow Up: Patient is to return to the office in 1 month for further evaluation to assess patient progress. Weight and blood pressure will need to be captured in order for patient to receive 2nd prescription. Documented by: Rachel Stuart LPN on behalf of Magno Staley DO documented in this encounter [facility] 06-14-2024 History of Presen t illness Narrative Reason for Appointment: Patient ID: Siva Weems is a 28 y.o. female who presents for Contraception Patient presents today for Consult appointment. MEDICATIONS Current Outpatient Medications Medication Instructions Ascorbic Acid (vitamin C) 1000 MG tablet busPIRone (BUSPAR) 10 mg Cholecalciferol (Vitamin D) 125 MCG (5000 UT) capsule Magnesium 100 MG capsule ALLERGIES Allergies Allergen Reactions Amoxicillin Itching, Rash and Shortness of breath Cinnamon Anaphylaxis Red Dye Other Reaction(s): Swelling of Lip/Tongue/Throat Red Dye #40 (Allura Red) Itching and Swelling Other Reaction(s): hives PROBLEMS Active Ambulatory Problems Diagnosis Date Noted control counseling 03/22/2024 Pelvic pain in female 03/22/2024 Resolved Ambulatory Problems Diagnosis Date Noted No Resolved Ambulatory Problems Past Medical History: Diagnosis Date Breast lump Chicken pox Family history of cancer Heart disease Hypertension (CMS/HCC) Low iron Migraines (CMS/HCC) HISTORY PAST MEDICAL HISTORY SOCIAL HISTORY Past Medical History: Diagnosis Date Breast lump Chicken pox Family history of cancer Heart disease Hypertension (CMS/HCC) Low iron Migraines (CMS/HCC) Social History Tobacco Use Smoking status: Never Smokeless tobacco: Never Substance Use Topics Alcohol use: Yes Comment: caffeine: 1-2 cups per day coffee, soda Drug use: Never FAMILY HISTORY Family History Problem Relation Name Age of Onset Heart disease Mother Diabetes Mother Heart disease Father Heart disease Maternal Grandmother Heart disease Paternal Grandmother COPD Paternal Grandmother Alcohol abuse Paternal Grandfather SURGICAL HISTORY Past Surgical History: Procedure Laterality Date BREAST LUMPECTOMY Right x2 in right breast, benign, [facility] SECTION, LOW TRANSVERSE 03/22/2021 CHOLECYSTECTOMY 08/27/2021 Lap TONSILLECTOMY WISDOM TOOTH EXTRACTION 2020 wisdom teeth REVIEW OF SYSTEMS Review of Systems: Review of Systems All other systems reviewed and are negative. OBJECTIVE Objective: Physical Exam Constitutional: Appearance: Normal appearance. She is well-developed. Genitourinary: Vulva normal. Genitourinary Comments: Mastitis on right breast Breasts: Breasts are soft. Right: Tenderness present. Left: Normal. Cardiovascular: Rate and Rhythm: Normal rate and regular rhythm. Pulmonary: Effort: Pulmonary effort is normal. Breath sounds: Normal breath sounds. Abdominal: General: Bowel sounds are normal. There is no distension. Palpations: Abdomen is soft. Tenderness: There is no abdominal tenderness. There is no guarding or rebound. Musculoskeletal: General: No swelling. Normal range of motion. Right lower leg: No edema. Left lower leg: No edema. Neurological: Mental Status: She is alert and oriented to person, place, and time. Skin: General: Skin is warm and dry. Psychiatric: Mood and Affect: Mood normal. Behavior: Behavior normal. Vitals and nursing note reviewed. Exam conducted with a tank furnace operator present. Vitals: Estimated body mass index is 41.63 kg/m as calculated from the following: Height as of 24: 5' 3 . Weight as of this encounter: 235 lb. BP: 110/68 No LMP recorded. ASSESSMENT & PLAN ICD-10-CM 1. Encounter for initial prescription of contraceptives, unspecified contraceptive Z30.019 2. Mastitis N61.0 Patient presents today to discuss symptoms of mastitis and options for control. Patient voiced that [facility] as it was causing severe pain. Discussed control options. Answered patients questions in regards to effect on fertility and that it is perfectly safe. Discussed weight loss with patient and prescribing Metformin to start and then patient to return to office in 1 month to start Adipex if patient desires. Patient voiced that she had lumpectomy at age 17 and has not breast feed for 2 years and was recently diagnosed with Mastitis. Patient voiced she was prescribed antibiotics and is currently finishing them up at this time. Patient to call office is she feels as though antibiotics therapy needs to be continued longer. Offered patient breast ultrasound, discussed Vitamin E Lotion during the day, Primerose Oil at night. Patient will call office if she desires to have breast ultrasound ordered. Documented by Najma De Leon LPN on behalf of: Magno Staley DO documented in this encounter [facility] 04-29-2024 History of Presen t illness Narrative Reason for Appointment: Patient ID: Siva Weems is a 28 y.o. female who presents for String check Patient presents today for String Check Follow Up appointment. MEDICATIONS Current Outpatient Medications Medication Instructions Ascorbic Acid (vitamin C) 1000 MG tablet busPIRone (BUSPAR) 10 mg Cholecalciferol (Vitamin D) 125 MCG (5000 UT) capsule Magnesium 100 MG capsule Turmeric (QC Tumeric Complex) 500 MG capsule ALLERGIES Allergies Allergen Reactions Amoxicillin Itching, Rash and Shortness of breath Cinnamon Anaphylaxis Red Dye Other Reaction(s): Swelling of Lip/Tongue/Throat Red Dye #40 (Allura Red) Itching and Swelling Other Reaction(s): hives PROBLEMS Active Ambulatory Problems Diagnosis Date Noted control counseling 03/22/2024 Pelvic pain in female 03/22/2024 Resolved Ambulatory Problems Diagnosis Date Noted No Resolved Ambulatory Problems Past Medical History: Diagnosis Date Breast lump Chicken pox Family history of cancer Heart disease Hypertension (CMS/HCC) Low iron Migraines (CMS/HCC) HISTORY PAST MEDICAL HISTORY SOCIAL HISTORY Past Medical History: Diagnosis Date Breast lump Chicken pox Family history of cancer Heart disease Hypertension (CMS/HCC) Low iron Migraines (CMS/HCC) Social History Tobacco Use Smoking status: Never Smokeless tobacco: Never Substance Use Topics Alcohol use: Yes Comment: caffeine: 1-2 cups per day coffee, soda Drug use: Never FAMILY HISTORY Family History Problem Relation Name Age of Onset Heart disease Mother Diabetes Mother Heart disease Father Heart disease Maternal Grandmother Heart disease Paternal Grandmother COPD Paternal Grandmother Alcohol abuse Paternal Grandfather SURGICAL HISTORY Past Surgical History: Procedure Laterality Date BREAST LUMPECTOMY Right x2 in right breast, benign, [facility] SECTION, LOW TRANSVERSE 03/22/2021 CHOLECYSTECTOMY 08/27/2021 Lap TONSILLECTOMY WISDOM TOOTH EXTRACTION 2020 wisdom teeth REVIEW OF SYSTEMS Review of Systems: Review of Systems All other systems reviewed and are negative. OBJECTIVE Objective: Physical Exam Constitutional: Appearance: Normal appearance. She is well-developed. Genitourinary: Vulva normal. IUD strings visualized. Cardiovascular: Rate and Rhythm: Normal rate and regular rhythm. Pulmonary: Effort: Pulmonary effort is normal. Breath sounds: Normal breath sounds. Abdominal: General: Bowel sounds are normal. There is no distension. Palpations: Abdomen is soft. Tenderness: There is no abdominal tenderness. There is no guarding or rebound. Musculoskeletal: General: No swelling. Normal range of motion. Right lower leg: No edema. Left lower leg: No edema. Neurological: Mental Status: She is alert and oriented to person, place, and time. Skin: General: Skin is warm and dry. Psychiatric: Mood and Affect: Mood normal. Behavior: Behavior normal. Vitals and nursing note reviewed. Exam conducted with a tank furnace operator present. Vitals: Estimated body mass index is 41.7 kg/m as calculated from the following: Height as of 04/01/24: 5' 3 . Weight as of this encounter: 235 lb 6.4 oz. BP: 116/74 Patient's last menstrual period was 03/27/2024. ASSESSMENT & PLAN ICD-10-CM 1. Intrauterine device surveillance Z30.431 Patient presents today for string check appointment. Patient voiced that she has become cadena since insertion. Informed patient that if this persist she is to contact office to have removed or discuss options. String visualized. RTC for annual and PRN. Documented by Najma De Leon LPN on behalf of: Magno Staley DO documented in this encounter [facility] 04-01-2024 History of Presen t illness Narrative Associated Order(s): IUD Insertion Post-Procedure Diagnose(s): Encounter for insertion of mirena IUD; Encounter for insertion of intrauterine contraceptive device (IUD) Reason for Appointment: Patient ID: Siva Weems is a 28 y.o. female who presents for Contraception (Mirena insert) Patient presents today for a IUD Insertion appointment. MEDICATIONS Current Outpatient Medications Medication Instructions Ascorbic Acid (vitamin C) 1000 MG tablet busPIRone (BUSPAR) 10 mg Cholecalciferol (Vitamin D) 125 MCG (5000 UT) capsule Magnesium 100 MG capsule Turmeric (QC Tumeric Complex) 500 MG capsule ALLERGIES Allergies Allergen Reactions Amoxicillin Itching, Rash and Shortness of breath Cinnamon Anaphylaxis Red Dye #40 (Allura Red) Itching and Swelling Other Reaction(s): hives SURGICAL HISTORY Past Surgical History: Procedure Laterality Date BREAST LUMPECTOMY Right x2 in right breast, benign, [facility] SECTION, LOW TRANSVERSE 03/22/2021 CHOLECYSTECTOMY 08/27/2021 Lap TONSILLECTOMY WISDOM TOOTH EXTRACTION 2019 wisdom teeth REVIEW OF SYSTEMS Review of Systems: Review of Systems All other systems reviewed and are negative. OBJECTIVE Objective: Physical Exam Constitutional: Appearance: Normal appearance. She is well-developed. Genitourinary: Vulva normal. Cardiovascular: Rate and Rhythm: Normal rate and regular rhythm. Pulmonary: Effort: Pulmonary effort is normal. Breath sounds: Normal breath sounds. Abdominal: General: Bowel sounds are normal. There is no distension. Palpations: Abdomen is soft. Tenderness: There is no abdominal tenderness. There is no guarding or rebound. Musculoskeletal: General: No swelling. Normal range of motion. Right lower leg: No edema. Left lower leg: No edema. Neurological: Mental Status: She is alert and oriented to person, place, and time. Skin: General: Skin is warm and dry. Psychiatric: Mood and Affect: Mood normal. Behavior: Behavior normal. Vitals and nursing note reviewed. Exam conducted with a tank furnace operator present. Vitals: Estimated body mass index is 41.42 kg/m as calculated from the following: Height as of this encounter: 5' 3 . Weight as of this encounter: 233 lb 12.8 oz. BP: 110/70 Patient's last menstrual period was 03/27/2024. ASSESSMENT & PLAN Assessment/Plan Encounter Diagnosis: ICD-10-CM 1. Encounter for insertion of intrauterine contraceptive device (IUD) Z30.430 Levonorgestrel intrauterine device 52 mg POCT , urine manually resulted 2. Encounter for insertion of mirena IUD Z30.430 Levonorgestrel intrauterine device 52 mg POCT , urine manually resulted IUD Insertion Date/Time: 04/01/2024 10:22 AM Performed by: Magno Staley DO Authorized by: Magno Staley DO Consent: Consent obtained: Verbal Consent given by: Patient Procedure risks and benefits discussed: yes Patient questions answered: yes Patient agrees, verbalizes understanding, and wants to proceed: yes Educational handouts given: yes Instructions and paperwork completed: yes Procedure: Pelvic exam performed: yes Negative GC/chlamydia test: yes Negative urine test: yes Negative serum test: yes Cervix cleaned and prepped: yes Speculum placed in vagina: yes Tenaculum applied to cervix: yes Uterus sounded: yes IUD inserted with no complications: yes IUD type: Mirena Strings trimmed: yes Post-procedure: Patient tolerated procedure well: yes Patient will follow up after next period: yes IUD Insertion: Patient presents today for an IUD Insertion. Patient is having a Mirena placed and written consent was obtained. Patient was placed in the dorsal lithotomy position with feet in stirrups. A sterile speculum ws placed into the vagina and the cervix was visualized. Cervix was cleansed with betadine and the anterior lip was grasped with ring forceps. Uterus was then gently sounded. New IUD device was gently advanced through the endocervix, toward te uterine fundus. The IUD was then deployed as device was gently removed from the uterus. The IUD strings were cut to the length from external os. All instruments were removed from the vagina. Post-procedure instructions given. All of patients questions were answered and she expressed understanding. Advised to call interim with any questions or concerns. Follow Up: Patient is to return to the office in 4 weeks for a string check. Documented by Najma De Leon LPN on behalf of: Magno Staley DO documented in this encounter [facility] 08-12-2023 Evaluation note Encounter Date Diagnosis Assessment Notes Aug, Disorder of left eustachian tube (ICD-10 - H69.92) Informed pt that there are no signs of a bacterial infection on exam today. Will not treat with an antibiotic at this time. Use Flonase nasal spray, 2 sprays in each nostril once daily. Takes 5-7 days of consistent use to see full benefits of medication. May use OTC Tylenol/Motrin as directed for any discomfort. If no improvement of symptoms by 7-10 days, patient should follow up, use consistently for 2-3 weeks.. Patient should follow up sooner if symptoms worsen and may need referral to ENT. Patient verbalizes understanding and agreement with treatment plan. [facility] Other 12-21-2023 Evaluation note* Encounter Date Diagnosis Assessment Notes Treatment Notes Treatment Clinical Notes Jul, Anxiety (ICD-10 - F41.9) Patient is not suicidal or homicidal at this time. Discussed treatment options with patient today. It was decided in collaboration with the patient to increase Buspar twice daily for management with depression/anxiety. Medication profile and possible SE reviewed with patient today. Patient to take medication as directed and prescribed. Do not skip/miss doses and do not stop abruptly. Patient is not interested in counseling at this time. Warning s/s reviewed with patient today. Patient to go immediately to the ER should patient experience any of these. Follow up in 4 weeks to assess symptoms and medication effectiveness. Patient verbalizes understanding and agrees to treatment plan. Jul, Edema of right lower extremity (ICD-10 - R60.0) Discussed symptoms, letter provided that she needs a standing desk. Jul, Migraine without status migrainosus, not intractable, unspecified migraine type (ICD-10 - G43.909) She reports daily headaches, uses Tyelnol/ Ibuprofen as needed for symptoms. Has been keeping record of headaches.Does notes that sleep has been off since the increased anxiety, increasing her Buspar. Also discussed ruling out reason for headaches as nothing has this have been consistent everyday-- we discussed further imaging with MRI- she is going to call for coverage through her insurance. Pt will call if she wants to go forward further imaging. [facility] Other 06-21-2023 Evaluation note* Encounter Date Diagnosis Assessment Notes Treatment Notes Treatment Clinical Notes Jan, Anxiety (ICD-10 - F41.9) Remains stable on current therapeutic dose. Patient is encouraged to stay active and remain involved. Try to keep themselves busy. Take medication as directed and we will continue to monitor. Jan, Encounter for initial prescription of contraceptive pills (ICD-10 - Z30.011) The risks and benefits of estrogen was discussed with the patient including HTN, hypercoagulability, nausea and medication interactions. Pt. advised that hormonal contraception does NOT provide STD protection. Call with any side effects. [facility] Other 06-15-2023 Evaluation note* Encounter Date Diagnosis Assessment Notes Treatment Notes Treatment Clinical Notes Jan, Anxiety (ICD-10 - F41.9) [facility] Other 12-18-2022 Evaluation note* Encounter Date Diagnosis Assessment Notes Treatment Notes Treatment Clinical Notes Jul, Contact with and (suspected) exposure to other viral communicable diseases (ICD-10 - Z20.828) Jul, Viral URI (ICD-10 - J06.9) Symptoms appear viral today. Bacteria infections take several days to weeks of symptoms to develop. Use saline nasal spray before prescription one and you have better results. Recommend OTC medications such as Mucinex DM, Delsym, Cepocal Lozenges Continue tylenol/ibuprofen for general discomfort. Encourage fluids. Symptoms should improve within the next 10-14 days. If no improvement of symptoms in 14 days call primary care provider to discuss antibiotic therapy [facility] Other 10-16-2022 Evaluation note* Encounter Date Diagnosis Assessment Notes Treatment Notes Treatment Clinical Notes May, Contact with and (suspected) exposure to other viral communicable diseases (ICD-10 - Z20.828) Advised patient that COVID/Influenza A/B PCR test was negative today. Advised patient that will treat as viral URI. Supportive care as directed, increase fluids and rest, Tylenol/Motrin as directed, OTC cough/cold remedies as directed on packaging, cool mist humidifier, throat lozenges. Discussed infection control practices such as good hand washing and mask wearing. Patient to follow up with PCP if symptoms persist or worsen despite treatment. Immediate eval for SOB, difficulty, chest pain, fevers that do not break with antipyretic or any other concerning symptoms as reviewed on patient education handout. Patient verbalizes understanding and is agreeable to treatment plan. Patient left in stable condition [facility] Other 04-03-2022 Evaluation note* Encounter Date Diagnosis Assessment Notes Treatment Notes Treatment Clinical Notes Nov, Contact with and (suspected) exposure to other viral communicable diseases (ICD-10 - Z20.828) Nov, Right otitis media, unspecified otitis media type (ICD-10 - H66.91) Nov, Acute otitis externa of right ear, unspecified type (ICD-10 - H60.501) Nov, Other Additional time spent conducting pre-visit phone call, screening for symptoms, instructions on social distancing, application and removal of PPE, and cleaning of examination room, equipment and supplies was preformed. Patient education given for testing methodology and results. Patient care instructions given in writting by [facility] document. [facility] Other 01-05-2022 Evaluation note* Encounter Date Diagnosis Assessment Notes Treatment Notes Treatment Clinical Notes Aug, Contact with and (suspected) exposure to other viral communicable diseases (ICD-10 - Z20.828) Aug, COVID-19 virus infection (ICD-10 - U07.1) Today you tested positive for the COVID virus. This mean you need to follow all [facility] quarantine guidelines found at [email or web address]. It is important to rest, increase fluids, and stay at home. Contact PCP and inform them of results. Medications like Mucinex, Cepacol, Tylenol, saline nasal spray are over the counter medications that can help with the symptoms. Current guidelines include staying home, having no fever above 100.4 for 24 hours without medication and having significant improvement of symptoms before you are allowed to stop your quarantine.. For full guidelines go to CDC. GOV. Contact primary care and ask for guidance is essential to follow up. Go to the ER if you develop chest pain, shortness of breath, or feeling like you are going to pass out. I considered coexisting PE, pneumothorax, and CHF diagnoses with covid . However, given, that she denies chest pain, sob, presyncopal/sync opal episodes, edema, crackles in the lungs, lung sounds present bilaterally, or calf tenderness, more ominous diagnoses are unlikely. If symptoms worsen, advised to go to the ER. Aug, Other Additional time spent conducting pre-visit phone call, screening for symptoms, instructions on social distancing, application and removal of PPE, and cleaning of examination room, equipment and supplies was preformed. Patient education given for testing methodology and results. Patient care instructions given in writting by [employer] document. [facility] Other 11-02-2021 Evaluation note* Encounter Date Diagnosis Assessment Notes Treatment Notes Treatment Clinical Notes Jun, Primary hypertension (ICD-10 - I10) Discussed with patient to restart Labetaolol at 100mg per day for blood pressure control. Discussed risk factors of blood pressure being this high after . All complications discussed. Educated on signs and symptoms to watch for including headaches, changes in vision, seizures, weakness,ect. and when to go to the ER for evaluation. Call with blood pressures in 2 weeks. Monitor milk supply. Call with any questions or side effects. Prior to your visit today we reviewed your chart and outlined the tetsing and treatment needed for your care. We discussed the possible complications of high blood pressure, including increased risk for heart disease, stroke, and kidney disease. Our goal is to keep your blood pressure below 130/85 (an preferably < 120/80) and maintain a healthy weight with a BMI less than 26. We are working together to acheive these goals with the following plan; healthier diet, increased activity and exercise, understanding your medicaitons, and your complaince. You have been given relevant education handouts. [facility] Other 08-01-2021 History general Narrative - Reported* Type Description Date Medical History Migraines Medical History Gallstones Surgical History tonsillectomy Surgical History lumpectomy x 2 Surgical History 03/2021 Hospitalization History childbirth 03/2021 Hospitalization History elevated liver enzymes 1 09/2020 [facility] Other 08-01-2021 History general Narrative - Reported* Type Description Date Medical History Migraines Medical History Gallstones Surgical History tonsillectomy Surgical History lumpectomy x 2 Surgical History 03/2021 Surgical History gall bladder 08/2021 Hospitalization History childbirth 03/2021 Hospitalization History elevated liver enzymes 1 09/2020 [facility] Other evaluation noteNo [email or web address] Other evaluation noteNoCelerus [facility] Other evaluation note* Diagnosis Onset Date Resolution Status Candidal [facility] Work Phone: evaluation note* Diagnosis Encounter for initial prescription of contraceptives, unspecified contraceptive Mastitis Inflammatory disease of breast Breast tenderness in female [facility] Diagnosis Encounter for weight management [facility] Diagnosis Encounter for insertion of intrauterine contraceptive device (IUD) Encounter for insertion of mirena IUD documented in this encounter [facility]* Diagnosis Intrauterine device surveillance documented in this encounter [facility]* Diagnosis Weight gain Other symptoms concerning nutrition, metabolism, and development Encounter for weight management documented in this encounter [facility]* Diagnosis Encounter for weight management control counseling Phyllodes tumor of breast Other specified disorders of breast documented in this encounter [facility]* Diagnosis Fibroadenoma of left breast- Primary History of benign phyllodes neoplasm of breast Family history of malignant neoplasm of ovary in first degree relative [facility] Diagnosis Encounter for general adult medical examination without abnormal findings- Primary [facility] information available [facility] Work Phone: Evaluation note* Diagnosis Encounter for weight management [facility] - [facility]* Type Description Date Medical History Migraines Surgical History tonsillectomy Surgical History lumpectomy x 2 [facility] Other History [facility] Other History general [facility]ative - [facility] Other History general Narrative - [facility] Other InstructionsNot on filedocumented in this encounter [facility] SystemInstructionsNot on filedocumented in this encounter [facility] SystemInstructionsNot on filedocumented in this encounter [facility] [place] Summary Purpose Family History No Family History Records Found Relationship Condition Age at Onset Recorded Date/T shabnam brother Hypertension Unknown mother Hypertension Unknown Diabetes mellitus Unknown father Hypertension Unknown father Family history of mental disorder Unknown Anxiety Unknown mother Depression Unknown Family history of mental disorder Unknown Advance Directives No Advanced Directives Records Found Advance Directive Response Recorded Date/ Time Advance Directives No January 10 6:25pm Chief Complaint and Reason for Visit Chief Complaint rash under breast Reason for Visit Candidal intertrigo Chief Complaint Admit Date wellness December 07, 2024 8:02am Additional Source Comments INFORMATION SOURCE (unrecogn ized section and content) DATE CREATED AUTHOR 03/04/[address] [facility] DATE CREATED AUTHOR AUTHOR'S ORGANIZ ATION 05/23/2020 [facility] DATE CREATED AUTHOR AUTHOR'S ORGANIZ ATION 07/30/2021 [facility] DATE CREATED AUTHOR AUTHOR'S ORGANIZ ATION 11/07/2021 [facility] DATE CREATED AUTHOR AUTHOR'S ORGANIZ ATION 10/09/2024 [facility] DATE CREATED AUTHOR AUTHOR'S ORGANIZ ATION 10/15/2024 [facility] DATE CREATED AUTHOR AUTHOR'S ORGANIZ ATION 11/30/2024 [facility] DATE CREATED AUTHOR AUTHOR'S ORGANIZ ATION 12/21/2024 [facility] d[facility] Specialists EPIC REASON FOR VISIT (unrecogniz ed section and content) Reason Comments Contraception Reason Comments follow up medication Reason Comments Contraception Mirena insert Reason Comments String check Reason Comments Weight Management Pt present today for Adipex #2 visit. Reason Comments Breast Mass Fibroadenoma of left breast, biopsy performed 10/04/24, referred by Dr. Staley Reason Comments Weight Management Care Teams (unrecognized sec tion and content) Team Status: Active Member Role Status Dates Indy Gilbert APRN [employer] PSYCHIATRIST-C Primary Care Provider Active Team Status: Inactive Member Role Status Dates Indy Gilbert APRN [employer] PSYCHIATRIST-C Primary Care Provider, Attending Provider Active Start: May 28, 2024 End: May 28, 2024 Tent Worker Relationship Specialty Start Date End Date Indy Gilbert NP [facility] [place] [address] PCP - General Family Medicine 10/27/23 Tent Worker Relationship Specialty Start Date End Date Indy Gilbert NP [address] [id number] PCP - General Family Medicine 10/27/23 Tent Worker Relationship Specialty Start Date End Date Indy Gilbert NP [address] [place] [address] PCP - General Family Medicine 10/27/23 Tent Worker Relationship Specialty Start Date End Date Indy Gilbert NP [address] [facility] [place] [address] PCP - General Family Medicine 10/27/23 Tent Worker Relationship Specialty Start Date End Date Indy Gilbert NP [address] [facility] [place] [address] PCP - General Family Medicine 10/27/23 Tent Worker Relationship Specialty Start Date End Date Indy Gilbert NP [address] [facility] [place] [address] PCP - General Family Medicine 10/27/23 Tent Worker Relationship Specialty Start Date End Date Indy Gilbert NP [address] [facility] [place] [address] PCP - General Family Medicine 10/27/23 Tent Worker Relationship Specialty Start Date End Date Indy Gilbert NP [address] [facility] [place] [address] PCP - General Family Medicine 10/27/23 Tent Worker Relationship Specialty Start Date End Date Indy Gilbert APRN-[employer] PSYCHIATRIST [address] [facility] [address] PCP - General Nurse Practitioner 12/23/22 Tent Worker Relationship Specialty Start Date End Date Indy Gilbert APRN-NP [address] [facility] [place] [address] PCP - General Nurse Practitioner 12/23/22 Tent Worker Relationship Specialty Start Date End Date Indy Gilbert NP [address] [place] [address] [place] [address] PCP - General Family Medicine 10/27/23 Tent Worker Relationship Specialty Start Date End Date Indy Gilbert APRN-B[facility] [address] [facility] [place] [address] PCP - General Nurse Practitioner 12/23/22 Team Status: Inactive Member Role Status Dates Indy Gilbert APRN [employer] PSYCHIATRIST-C Primary Care Provider, Attending Provider Active Start: December 07, 2024 End: December 07, 2024 Tent Worker Relationship Specialty Start Date End Date Indy Gilbert NP [address] [place] [address] [place] [address] PCP - General Family Medicine 10/27/23 Tent Worker Relationship Specialty Start Date End Date Indy Gilbert NP [address] [place] [address] [place] [address] PCP - General Family Medicine 10/27/23 Goals (unrecognized section and content) Goals may be documented in a n alternate section FOR RECORDS PERTAINING TO PATIENTS WHO ARE OR HAVE BEEN ENROLLED IN A CHEMICAL DEPENDENCY/SUBSTANCEABUSE PROGRAM, SOME INFORMATION MAY BE OMITTED. This clinical summary was aggregated from multiple sources. Caution should be exercised in using it in the provision of clinical care. This summary normalizes information from multiple sources, and as a consequence, information in this document may materially change the coding, format and clinical context of patient data. In addition, data may be omitted in some cases. CLINICAL DECISIONS SHOULD BE BASED ON THE PRIMARY CLINICAL RECORDS. [employer] provides no warranty or guarantee of the accuracy or completeness of information in this document.
--- NOTE | 2025-01-17 07:04 | US_ITS ---
The [place] [id number] Patient Name: SIVA WEEMS MRN: [id number] date: 1995 Sex: F Assigned Patient Location: Current Patient Location: Accession/Order Number: [id number] Exam Date: 01/17/2025 07:59 Report Date: 01/17/2025 08:02 At the request of: JORGE WHITLEY DO Procedure: US pelvis transvaginal ULTRASOUND PELVIS TRANSVAGINAL CLINICAL DATA: History of polycystic ovarian symptoms. COMPARISON: 11/11/2023 Real-time ultrasound evaluation the pelvis was performed using a transvaginal approach. Estimated uterine size is approximately 7.7 x 4.7 x 3.6 cm. The endometrial lining is estimated at 6 - 7 mm. No focal myometrial abnormalities are seen. Both ovaries are identified. The right ovary measures 2.4 x 2.6 x 1.6 cm. The left ovary measures 2.3 x 1.6 x 1.9 cm. There are at least 6 tiny follicles at the periphery of the left ovary measuring up to 3 mm . There are also couple follicles on the right. There are no dominant adnexal cysts. There is documentation of ovarian blood flow. Resistive index on the right is 0.6 and on the left 0.4. No free fluid is seen. US/US pelvis transvaginal IMPRESSION: TINY FOLLICLES, GREATER ON THE LEFT, DESCRIBED. NO DOMINANT ADNEXAL CYSTS. Impression dictated by: Rachel Elias M.D. 01/17/2025 8:02 AM Dictation Location: [place] [address] Electronically authenticated by: [id number] Y Date: 01/17/2025 08:02
[2025-01-17 10:05] LABS: Basophils Percent Auto 0.4 % (0.2-2.0); Eosinophils Absolute Auto 0.5 10^3/uL (0.0-0.7); Eosinophils Percent Auto 4.7 % (0.9-7.0); Hematocrit 40.6 % (36.0-48.0); Hemoglobin 13.8 g/dL (12.0-16.0); Immature Granulocytes Abs Auto 0.03 10^3/uL (0.00-0.03); Immature Granulocytes Pct Auto 0.3 % (0.0-0.5); Lymphocytes Absolute Auto 1.7 10^3/uL (1.2-3.8); Lymphocytes Percent Auto 15.2 % (20.5-60.0); Mean Corpuscular Hemoglobin 27.9 pg (26.7-34.0); Mean Corpuscular Volume 82.2 fL (81.0-99.0); Mean Platelet Volume 8.9 fL (9.5-13.5); Monocytes Absolute Auto 0.5 10^3/uL (0.3-0.8); Monocytes Percent Auto 4.1 % (1.7-12.0); Neutrophils Absolute Auto 8.6 10^3/uL (1.4-6.5); Neutrophils Percent Auto 75.3 % (43.0-75.0); Platelet Count 363 10^3/uL (150-450); Red Blood Count 4.94 10^6/uL (4.20-5.40); Red Cell Distribution Width 13.2 % (11.0-15.0); White Blood Count 11.4 10^3/uL (4.0-11.0)
[2025-01-17 10:22] LABS: Free T3 3.04 pg/mL (2.18-3.98); Thyroid Stimulating Hormone 0.925 uIU/mL (0.358-3.740)
[2025-01-17 10:27] LABS: HCG Quantitative <1 mIU/mL
[2025-01-17 10:28] LABS: Estimated Average Glucose 105 mg/dL; Glycohemoglobin A1C 5.3 % (4.5-6.2)
[2025-01-17 10:53] LABS: Free T4 1.07 ng/dL (0.76-1.46)
[2025-01-18 04:07] LABS: FSH 2.6 mIU/mL (.); Triiodothyronine (T3) 208 ng/dL (71-180)
[2025-01-18 08:09] LABS: Luteinizing Hormone(LH) 4.4 mIU/mL (.)
[2025-01-20 16:09] LABS: DHEA, Serum 243 ng/dL (31-701)
== END 2025-01-17 06:58 | disposition home or self-care (01) ==
LOC: US 06:59
PROVIDERS: PCP Nurse Practitioner Family; Visit Provider Obstetrics & Gynecology
DX: E28.2 Polycystic ovarian syndrome (principal); Z87.42 Personal history of other diseases of the female genital tract; N92.1 Excessive and frequent menstruation with irregular cycle
CPT/HCPCS: 36415; 76830; 82626; 82627; 83001; 83002; 83036; 84436; 84439; 84443; 84480; 84481; 84702; 85025

== ENCOUNTER 2025-02-07 07:13 | Outpatient (OUT) | payer BC, SELFPAY ==
--- OUTSIDE RECORDS SUMMARY | 2024-12-20 13:09 | XMS_ITS ---
Author Name Auto Generated Organization OH[facility] Care Team Providers Care Site Director Name Role Phone JORGE STALEY Attending Unavailable JORGE STALEY Attending Unavailable JORGE STALEY Attending Unavailable JORGE STALEY Attending Unavailable JORGE STALEY Attending Unavailable TIERNEY NOYOLA Attending Unavailable ANGILALITAY Attending Unavailable ANGI, JORGE Attending Unavailable LETICIA RIVAS Attending Unavailable BRENDA JEAN BAPTISTE Primary Care Unavailable JORGE STALEY R Referring Unavailable BRENDA JEAN BAPTISTE Primary Care Unavailable JORGE STALEY R Referring Unavailable BRENDA JEAN BAPTISTE Primary Care Unavailable JORGE STALEY Referring Unavailable BRENDA JEAN BAPTISTE Primary Care Unavailable Laila Nichole Referring Unavailable BRENDA JEAN BAPTISTE Primary Care Unavailable BRENDA JEAN BAPTISTE Referring Unavailable LINDSEY PEARL Attending Unavailable BRENDA JEAN BAPTISTE Referring Unavailable BRENDA JEAN BAPTISTE Primary Care Unavailable PROBLEMS DATE TYPE CONDITION / CODE ATTENDING STATUS 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 / 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(ICD-10) [facility] 09/29/2024 Unknown Other specified disorders of breast / N64.89(ICD-10) [facility] PROCEDURES No Procedure Records Found RESULTS COMPREHENSIVE METABOLIC PANEL Collected: 2024 8:19 AM Status: COMPLETED Source: [facility] TYPE CODE TESTS RESULT OUT OF RANGE REFERENCE UNITS LAB NA SODIUM 138 134-146 mmol/L LAB K POTASSIUM 4.6 3.5-5.0 mmol/L LAB CL CHLORIDE 103 98-109 mmol/L LAB CO2 CARBON DIOXIDE 25 22-32 mmol/L LAB AGAP ANION GAP 10 5-15 mmol/L LAB BUN BLOOD UREA NITROGEN 15 5-23 mg/dL LAB CRET CREATININE 0.78 0.40-1.00 mg/dL Result Comment: METHOD TRACE ABLE TO IDMS STANDARD LAB GLU GLUCOSE 83 65-99 mg/dL LAB CA CALCIUM 9.4 8.5-10.5 mg/dL LAB TP TOTAL PROTEIN 8.1 High 6.0-8.0 g/dL LAB ALB ALBUMIN 4.5 3.2-5.3 g/dL LAB ALK ALKALINE PHOSPHATASE 80 39-130 U/L LAB AST AST 22 <=41 U/L LAB ALT ALT 17 <=31 U/L LAB TBIL BILIRUBIN,TOTAL 0.4 0.3-1.2 mg/dL LAB EGFR EGFR (CKD-EPI) NON-RACE DEPENDENT >^90 >=60 ml/min/1 .73sq.m Result Comment: Reported eGF R is based on the CKD-EPI 2020 equation that does not use a race coefficient. Performed By: #### CMP #### [facility] ([facility]) [address] [place] [address] [address] [place] [address] VIR LIPID PROFILE Collected: 11/29/2024 8:19 AM Status: COMPLETED Source: [facility] TYPE CODE TESTS RESULT OUT OF RANGE REFERENCE UNITS LAB CHOL CHOLESTEROL 144 Low 150-200 mg/dL LAB TRIG TRIGLYCERIDE 133 27-150 mg/dL LAB HDL HDL CHOLESTEROL 43 >39 mg/dL Result Comment: HDL <40 mg/d L - High Risk HDL > or = 40mg/dL- Desirable HDL >60 mg/dL - Negative Risk LAB LDL LDL (CALC) 74 <130 mg/dL Result Comment: LDL <100 mg/ dL - Desirable LDL >160 mg/dL - High Risk LAB CHDL CHOLESTEROL:HDL 3.3 1.0-5.0 NA LAB VLDL VERY LOW LIPOPROTEIN 27 0-30 mg/dL Performed By: #### LIPR #### [facility] ([facility]) [address] [place] [address] [address] [place] [address] VIR CBC WITH AUTO DIFFERENTIAL Collected: 0 11/29/2024 8:19 AM Status: COMPLETED Source: [facility] TYPE CODE TESTS RESULT OUT OF RANGE REFERENCE UNITS LAB WBC WBC 9.2 4-11 x10E9/L LAB RBC RBC COUNT 5.05 3.8-5.2 X10E12/L LAB HGB HEMOGLOBIN 13.9 11.7-15.5 g/dL LAB HCT HEMATOCRIT 41.7 35-47 % LAB MCV MCV 83 80-100 fL LAB MCH MCH 27.4 27-34 pg LAB MCHC MCHC 33.2 32-36 g/dL LAB RDW RDW 14.3 11.5-15 % LAB PLTC PLATELET COUNT 292 150-450 X10E9/L LAB MPV MPV 7.5 7-12 fL LAB NEUT NEUTROPHILS RELATIVE PERCENT BY AUTOMATED COUNT 68.8 % LAB LYMP LYMPHOCYTES RELATIVE PERCENT BY AUTOMATED COUNT 21.5 % LAB MONO MONOCYTES RELATIVE PERCENT BY AUTOMATED COUNT 4.4 % LAB EOS EOSINOPHILS RELATIVE PERCENT BY AUTOMATED COUNT 4.9 % LAB BASO BASOPHILS RELATIVE PERCENT BY AUTOMATED COUNT 0.4 % LAB ANEUT NEUTROPHILS ABSOLUTE COUNT BY AUTOMATED COUNT 6.3 10*3/uL LAB ALYMP LYMPHOCYTES ABSOLUTE COUNT (10*3/UL) BY AUTOMATED COUNT 2.0 10*3/uL LAB AMONO MONOCYTES ABSOLUTE COUNT (10*3/UL) BY AUTOMATED COUNT 0.4 10*3/uL LAB AEOS EOSINOPHILS ABSOLUTE COUNT (10*3/UL) BY AUTOMATED COUNT 0.5 10*3/uL LAB ABASO BASOPHILS ABSOLUTE COUNT (10*3/UL) BY AUTOMATED COUNT 0.0 10*3/uL LAB DTYPE CELLAVISION DIFFERENTIAL TYPE AUTOMATED DIFFERENTIAL Performed By: #### CBCA #### [facility] ([facility]) [address] [place] [address] VIR MAMM POST BX DIAG UNI LT Observed: 10/04 9:42 AM Status: C Source: [facility] MAMM POST BX DIAG UNI LT *ADDENDUM*Addendum issued for newly received pathology results, 10/07/2024 3:00 PM: For the left breast biopsy site there are pathology results of fibroadenoma. See dedicated pathology report for further detail. Results are benign and compatible with imaging characteristics. No follow-up required in the setting of clinical stability. If patient notices increase in size or new symptoms, recommend repeat ultrasound evaluation. Procedure performed by Dr. Nichole, addendum issued by Dr. Nichole. Finalized by Laila Nichole MD on 10/07/2024 3:01 PM 100 SURGICAL PATHOLOGY Collected: 9:30 AM Status: COMPLETED Source: [facility] TYPE CODE TESTS RESULT OUT OF RANGE REFERENCE UNITS LAB [id number]&rpt Surgical Pathology Result Comment: [facility] [address] [place] [address] Surgical Pathology Consultation Patient Name:SIVA WEEMS:1995 (Age: 28)Gender:FTaken:10/04/2024Reported:10/07/2024Physician(s):Jorge Staley DO ([phone])Copy To:Laila Nichole MD FERMÍN JEAN BAPTISTEENCOM[facility] E[facility] VALLEYAccession #:[id number]. Rec. #:[id number]: #[id number] Final Pathologic Diagnosis Left breast,6 o'clock, 3 cmfn, mass, biopsy: BENIGN: Fibroadenoma Report Electronically Signed Out nsk/10/07/2024Melonie Lundberg [place] [address], License number: [id number]. Clinical History Biopsy procedure: Ultrasound; Target: Mass; Laterality: Left breast; Location: 6:00 3cmfn; BI-RAD: 4b; Suspect: Fibroadenoma vs. Phyllodes vs. Cancer Gross Description Received in formalin labeled DANK left breast tissue are 7 fibroadipose tissue cores ranging from 0.2 cm-1.5 cm. The cores are submitted entirely in cassettes A and B. Time incised: 930 Time in formalin: 933 Cold ischemic time: 3 minutes Time in formalin before processin hours (2,ns,P10-0095, m8.1) SW sxw/10/04/2024NSK Specimen(s) Received Left breast Fee Codes(s): 1; 32959 US BX BREAST US GUID INITIAL LT Observed: 10/04/2024 8:53 AM Status: C Source: [facility] US BX BREAST US GUID INITIAL LT *ADDENDUM*Addendum issued for newly received pathology results, 10/07/2024 3:00 PM: For the left breast biopsy site there are pathology results of fibroadenoma. See dedicated pathology report for further detail. Results are benign and compatible with imaging characteristics. No follow-up required in the setting of clinical stability. If patient notices increase in size or new symptoms, recommend repeat ultrasound evaluation. Procedure performed by Dr. Nichole, addendum issued by Dr. Nichole. Finalized by Laila Nichole MD on 10/07/2024 3:01 PM 100 US BREAST LT LIMITED Observed: 8:51 AM Status: COMPLETED Source: [facility] US BREAST LT LIMITED SIVA WEEMS 1995 [id number], [id number], [id number] EXAM: MAMM DIAGNOSTIC BILATERAL W CAD, US AXILLA (BREAST) RT LIMITED, US BREAST LT LIMITED, 09/29/2024 8:09 AM CLINICAL INDICATIONS: Phyllodes tumor of breast; Other specified disorders of breast, COMPARISON: None TECHNIQUE: Bilateral digital tomosynthesis MLO and CC views of the breasts were obtained, with creation of synthetic 2D views. Computer aided detection was utilized. In addition, targeted sonography of the left breast in the area of mammographic abnormality and in the right axilla in the area of lump performed. FINDINGS: The breasts are heterogeneously dense, which may obscure small masses. At the 6:00 position left breast, there is a 1.5 cm rounded nodule seen on mammogram. Targeted sonography of this demonstrates a 1.5 cm circumscribed heterogeneous mass with mild peripheral color flow vascularity. In the right axilla, corresponding to the palpable abnormality, there is a normal-sized lymph node with cortical thickness 2.4 mm. In addition, in the right axilla, there is a 5 mm hypoechoic lesion in the skin with some adjacent color flow vascularity, likely a sebaceous cyst. There are no other suspicious masses, calcifications, or areas of architectural distortion. IMPRESSION: * Left breast mass is suspicious for malignancy. Ultrasound-guided biopsy recommended. I have discussed this with the patient at time of exam. * Right axilla sebaceous cyst. Recommend correlation with clinical findings. BI-RADS: BI-RADS 4 - Suspicious RECOMMENDATION: Biopsy is recommended. Given personal elevated risk of malignancy (see below), MRI may be considered for supplemental screening. This is recommended to be performed at alternating 6 month intervals with screening mammography. RISK ASSESSMENT: TC Lifetime risk: 23.5%. The patient's reported personal and family medical history was used calculate their Tyrer-Cuzick lifetime risk of malignancy. Scores less than 20% are not considered high risk per ACR guidelines and patient should continue with the above recommendation. Patient was given the results before leaving the department. Finalized by Yogi Napier MD on 09/29/2024 9:23 AM 4 c BIOPSY US AXILLA (BREAST) RT LIMITED Observed: 09/29/2024 8:51 AM Status: COMPLETED Source: [facility] US AXILLA (BREAST) RT LIMITE Odette WEEMS 1995 [id number], [id number], [id number] EXAM: MAMM DIAGNOSTIC BILATERAL W CAD, US AXILLA (BREAST) RT LIMITED, US BREAST LT LIMITED, 09/29/2024 8:09 AM CLINICAL INDICATIONS: Phyllodes tumor of breast; Other specified disorders of breast, COMPARISON: None TECHNIQUE: Bilateral digital tomosynthesis MLO and CC views of the breasts were obtained, with creation of synthetic 2D views. Computer aided detection was utilized. In addition, targeted sonography of the left breast in the area of mammographic abnormality and in the right axilla in the area of lump performed. FINDINGS: The breasts are heterogeneously dense, which may obscure small masses. At the 6:00 position left breast, there is a 1.5 cm rounded nodule seen on mammogram. Targeted sonography of this demonstrates a 1.5 cm circumscribed heterogeneous mass with mild peripheral color flow vascularity. In the right axilla, corresponding to the palpable abnormality, there is a normal-sized lymph node with cortical thickness 2.4 mm. In addition, in the right axilla, there is a 5 mm hypoechoic lesion in the skin with some adjacent color flow vascularity, likely a sebaceous cyst. There are no other suspicious masses, calcifications, or areas of architectural distortion. IMPRESSION: * Left breast mass is suspicious for malignancy. Ultrasound-guided biopsy recommended. I have discussed this with the patient at time of exam. * Right axilla sebaceous cyst. Recommend correlation with clinical findings. BI-RADS: BI-RADS 4 - Suspicious RECOMMENDATION: Biopsy is recommended. Given personal elevated risk of malignancy (see below), MRI may be considered for supplemental screening. This is recommended to be performed at alternating 6 month intervals with screening mammography. RISK ASSESSMENT: TC Lifetime risk: 23.5%. The patient's reported personal and family medical history was used calculate their Tyrer-Cuzick lifetime risk of malignancy. Scores less than 20% are not considered high risk per ACR guidelines and patient should continue with the above recommendation. Patient was given the results before leaving the department. Finalized by Yogi Napier MD on 09/29/2024 9:23 AM 4 c BIOPSY MAMM DIAGNOSTIC BILATERAL W CAD Observed: 09/29/2024 8:09 AM Status: COMPLETED Source: [facility] MAMM DIAGNOSTIC BILATERAL W CAD SIVA WEEMS 1995 [id number], [id number], [id number] EXAM: MAMM DIAGNOSTIC BILATERAL W CAD, US AXILLA (BREAST) RT LIMITED, US BREAST LT LIMITED, 09/29/2024 8:09 AM CLINICAL INDICATIONS: Phyllodes tumor of breast; Other specified disorders of breast, COMPARISON: None TECHNIQUE: Bilateral digital tomosynthesis MLO and CC views of the breasts were obtained, with creation of synthetic 2D views. Computer aided detection was utilized. In addition, targeted sonography of the left breast in the area of mammographic abnormality and in the right axilla in the area of lump performed. FINDINGS: The breasts are heterogeneously dense, which may obscure small masses. At the 6:00 position left breast, there is a 1.5 cm rounded nodule seen on mammogram. Targeted sonography of this demonstrates a 1.5 cm circumscribed heterogeneous mass with mild peripheral color flow vascularity. In the right axilla, corresponding to the palpable abnormality, there is a normal-sized lymph node with cortical thickness 2.4 mm. In addition, in the right axilla, there is a 5 mm hypoechoic lesion in the skin with some adjacent color flow vascularity, likely a sebaceous cyst. There are no other suspicious masses, calcifications, or areas of architectural distortion. IMPRESSION: * Left breast mass is suspicious for malignancy. Ultrasound-guided biopsy recommended. I have discussed this with the patient at time of exam. * Right axilla sebaceous cyst. Recommend correlation with clinical findings. BI-RADS: BI-RADS 4 - Suspicious RECOMMENDATION: Biopsy is recommended. Given personal elevated risk of malignancy (see below), MRI may be considered for supplemental screening. This is recommended to be performed at alternating 6 month intervals with screening mammography. RISK ASSESSMENT: TC Lifetime risk: 23.5%. The patient's reported personal and family medical history was used calculate their Tyrer-Cuzick lifetime risk of malignancy. Scores less than 20% are not considered high risk per ACR guidelines and patient should continue with the above recommendation. Patient was given the results before leaving the department. Finalized by Yogi Napier MD on 09/29/2024 9:23 AM 4 c BIOPSY ALLERGIES DATE TYPE / CODE NAME / CODE REACTION SEVERITY SOURCE 10/29/2023 DRUG INGREDI/548933 003(SNOMED CT) AMOXICILLIN [facility] 10/29/2023 DRUG INGREDI/007717 003(SNOMED CT) FD AND C RED NO.40 Anaphylaxis High [facility] Drug Class/73292240 3(SNOMED CT) NO ALLERGY INFORMATION AVAILABLE [facility] ENCOUNTERS ADMIT/DISCHARGE ACCOUNT NUMBER ADMITTING ENCOUNTER CLASS LOCATION SOURCE 12/20/2024/12/21/19 [id number] Ambulatory Building:N[facility] S [facility] 11/29/2024/11/30/19 25 [id number] Ambulatory Building:PFM _LAB [facility] 11/03/2024/11/04/19 25 [id number] Ambulatory Building:NOM S [facility] 10/13/2024/10/14/19 25 [id number] Ambulatory Buildin 80 [facility] 10/04/2024/10/05/19 25 [id number] Ambulatory Building:[facility] 10/04/2024/10/05/19 25 [id number] Ambulatory Building:[facility] 09/29/2024/09/29/19 25 [id number] Ambulatory Building:[facility] 09/29/2024/09/29/19 25 [id number] Ambulatory Building:[facility] 09/09/2024/09/09/19 25 [id number] Ambulatory Building:N[facility] S [facility] 08/12/2024/08/12/19 25 [id number] Ambulatory Building:NOM [facility] 07/15/2024/07/15/20 24 [id number] Ambulatory Building:NOM S [facility] 06/14/2024/06/14/20 24 [id number] Ambulatory Building:N[facility] S [facility] 04/29/2024/04/29/20 24 [id number] Ambulatory Building:N[facility] S [facility] 04/01/2024/04/01/20 24 [id number] Ambulatory Building:NOM S [facility] 03/22/2024/03/22/20 24 [id number] Ambulatory Building:NOM S [facility] PAYERS ENCOUNTER GUARANTOR PAYER SUBSCRIBER SOURCE 12/20/2024 SIVA CESARLAURIEB: [place] [address]Cwv: (HP) (WP) Primary Insurance:AETNAPol icy Number: [id number] e Date:3794-02-31Twk n Name:GREG [place]GERS [id number], [place] [address]NQ: SIVA CESARLAURIEB: [id number] [place] [address] [facility] 11/29/2024 SIVA NEVILLE NICHOLASB: [place] [address]Xpo: (HP) Primary Insurance:AETNA POSPolicy Number: [id number] e Date:2024-02-02 SIVA NEVILLE NICHOLASB: [id number] [place] [address]Biy: (WP) [facility] 11/03/2024 SIVA CESARLAURIEB: [place] [address]Shb: (HP) (WP) Primary Insurance:AETNAPol icy Number: [id number] e Date:8535-37-16Mgy n Name:GREG RODGERS [id number] OLMOS [address]XQ: [facility]IVA [facility]: [id number] [place] [address] [facility] 10/13/2024 [facility] KELIN WEEMSB: [place] [address]Bmh: (HP) Primary Insurance:AETNA POSPolicy Number: [id number] e Date:2024-02-02 [facility]: [id number] [place] [address]Abd: (WP) [facility] 10/04/2024 [facility] WE[facility]: [place] [address]Riv: (HP) Primary Insurance:AETNA POSPolicy Number: [id number] e Date:2024-02-02 [facility] [id number] [place] [address]Gbf: (WP) [facility] 10/04/2024 [facility] [place] [address]Qrv: (HP) Primary Insurance:AETNA POSPolicy Number: [id number] e Date:2024-02-02 [facility]: [id number] [place] [address]Ytt: (WP) [facility] 09/29/2024 [facility]: [place] [address]Fpx: (HP) (WP) Primary Insurance:AETNA POSPolicy Number: [id number] e Date:2024-02-02 SIVASTEPHANIE PETERSONB: [id number] [place] [address]Zhk: (HP) (WP) [facility] 09/29/2024 SIVASTEPHANIE WEEMSB: [place] [address]Gck: (HP) (WP) Primary Insurance:AETNA POSPolicy Number: [id number] e Date:2024-02-02 SIVASTEPHANIE WEEMSB: [id number] [place] [address]Xto: (HP) (WP) [facility] 09/09/2024 SIVA DANKB: [place] [address]Jqh: (HP) (WP) Primary Insurance:AETNAPol icy Number: [id number] e Date:7132-91-18Zlj n Name:GREG RODGERS [id number] [address]OU: SIVASTEPHANIE CESARLAURIEB: [id number] [place] [address] [facility] 08/12/2024 SIVA WEEMSB: [place] [address]Zhn: (HP) (WP) Primary Insurance:AETNAPol icy Number: [id number] e Date:2522-25-95Nhu n Name:GREG [place]OD[place] [id number] [address]BA: SIVA WEEMSDOB: [id number] [place] [address] [facility] 07/15/2024 SIVA CESARARDDOB: [place] [address]Dmx: (HP) (WP) Primary Insurance:AETNAPol icy Number: [id number] e Date:2853-22-26Aav n Name:OSIEL WARD [address]NI: SIVA CESARCLDOB: [id number] [place] [address] [facility] 06/14/2024 SIVA CESARCLDOB: [place] [address]Xef: (HP) (WP) Primary Insurance:AETNAPol icy Number: [id number] e Date:0533-83-56Ikb n Name:GREG [place] [id number] [address]MO: SIVA CESARCLDOB: [id number] [place] [address] [facility] 04/29/2024 SIVA CESARCLDOB: [place] [address]Pwj: (HP) (WP) Primary Insurance:AETNAPol icy Number: [id number] e Date:0182-83-70Eoe n Name:OSIEL WARD [address]SW: SIVA CESARCLDOB: [id number] [place] [address] [facility] 04/01/2024 SIVA CESARLAURIEB: [place] [address]Ifc: (HP) (WP) Primary Insurance:AETNAPol icy Number: [id number] e Date:9645-27-69Uyr n Name:[place] [address]JG: SIVA PETERSONB: [id number] [place] [address] [facility] 03/22/2024 SIVASTEPHANIE CESARMARGIE: [place] [address]Oxx: (HP) (WP) Primary Insurance:AETNAPol icy Number: [id number] e Date:6314-32-49Rpx n Name:[place] [address]TG: SIVA TERESA: [id number] [place] [address] [facility]
--- NOTE | 2025-02-07 07:20 | US_ITS ---
The [address] [address] Patient Name: SIVA WEEMS MRN: [id number] date: 1995 Sex: F Assigned Patient Location: Current Patient Location: US Accession/Order Number: [id number] Exam Date: 02/07/2025 08:22 Report Date: 02/07/2025 08:34 At the request of: BRENDA JEAN BAPTISTE Procedure: US thyroid THYROID ULTRASOUND CLINICAL DATA: Abnormal laboratory data. Family history of thyroid nodularity. COMPARISON: None The right thyroid lobe measures 4.8 x 1.5 x 2.1 cm. The left lobe measures 5.7 x 1.8 x 1.8 cm. The isthmus measures 3 mm . Thyroid echotexture is heterogeneous. At the mid to upper pole on the right, there is a hypoechoic nodule measuring 7 x 6 x 6 mm (TI-RADS 4). Also at the superior pole, there is a nearly isoechoic nodule with hypoechoic rim measuring 6 x 5 x 7 mm (TI-RADS 3). At the inferior pole, there is a heterogeneous mixed echogenicity nodule measuring 10 x 6 x 8 mm (TI-RADS 3). On the left, there is a heterogeneous mixed echogenicity nodule with cystic components at the midpole measuring 17 x 11 x 13 mm (TI-RADS 3). At the inferior left thyroid lobe there is a mixed echogenicity thyroid nodule with hyperechoic component that may be calcification measuring 8 x 7 x 13 mm. There is bulging of the overlying thyroid capsule (TI-RADS 7). US/US thyroid IMPRESSION: BILATERAL THYROID NODULARITY. BIOPSY OF THE INFERIOR LEFT THYROID NODULE IS SUGGESTED. Impression dictated by: Rachel Elias M.D. 02/07/2025 8:34 AM Dictation Location: [place] [address] Electronically authenticated by: [id number] Y Date: 02/07/2025 08:34
== END 2025-02-07 07:14 | disposition home or self-care (01) ==
LOC: US 07:16
PROVIDERS: PCP Nurse Practitioner Family; Visit Provider Nurse Practitioner Family
DX: R79.89 Other specified abnormal findings of blood chemistry (principal); Z83.49 Family history of other endocrine, nutritional and metabolic diseases
CPT/HCPCS: 76536

== ENCOUNTER 2025-02-22 15:07 | Outpatient (OUT) | payer BC, SELFPAY | END 2025-02-22 15:08 | disposition home or self-care (01) | LOC: LAB 15:08 | PROVIDERS: PCP Nurse Practitioner Family | DX: E04.1 Nontoxic single thyroid nodule (principal) | CPT/HCPCS: 36415; 86376 ==

== ENCOUNTER 2025-03-21 14:55 | Outpatient (OUT) | payer BC, SELFPAY ==
--- OUTSIDE RECORDS SUMMARY | 2025-03-07 11:00 | XMS_ITS | Encounter Summary ---
Author Organization [facility] Address [address] [place] [address] Care Team Providers Care Dental Services Director Name Role Phone Indy Gilbert NP Primary Care Provider Reason for Visit * Reason Comments Thyroid Nodule FNA Encounter Details Date Type Department Care Team (Late st Contact Info) Description 03/07/2025 11:00 AM EDT Office Visit [facility] [address] [place] [phone] Jose Harden DO [address] [place] [address] Thyroid nodule (Primary Dx); Nontoxic multinodular goiter Social History Tobacco Use Types Packs/Day Years Used Date Smoking Tobacco: Never Smokeless Tobacco: Never Tobacco Cessation:Counseling Given: Not Answered Alcohol Use Standard Drinks/Week Comments Yes 0 (1 standard drink = 0.6 oz pure alcohol) caffeine: 1-2 cups per day coffee, soda Comments No Sex and Gender Information Value Date Recorded Sex Assigned at Not on file Legal Sex Female 9:44 PM EDT Gender Identity Not on file Sexual Orientation Not on file documented as of this encounter Last Filed Vital Signs Vital Sign Reading Time Taken Comments Blood Pressure - - Pulse - - Temperature - - Respiratory Rate - - Oxygen Saturation - - Inhaled Oxygen Concentration - - Weight 90.7 kg (200 lb) 03/07/2025 10:42 AM EDT Height 160 cm (5' 3 ) 03/07/2025 10:42 AM EDT Body Mass Index 35.43 03/07/2025 10:42 AM EDT documented in this encounter Progress Notes * Jose Harden, DO - 03/07/2025 11:00 AM EDT Subjective Patient ID: Margoth Alvarez is a 29 y.o. female who presents for Thyroid Nodule (FNA) HPI This patient presents for recheck of left thyroid nodule, multinodular goiter, and thyroid dysfunction. Patient states to be doing about the same. Review of Systems Patient denies any difficulties with speech or swallow. Denies any neck pressure or tenderness. Presents today for needle aspiration of her thyroid gland. The rest of her review of systems is unchanged Objective ENT Physical Exam General Examination: General overview: Normal, age-appropriate, no evidence of distress, overweight Head: Normocephalic, atraumatic Eyes: Pupils are equally round and reactive to light and accommodation, extraocular muscles are intact Ears: External ear architecture within normal limits, ear canals are patent, tympanic membranes areintact. Nose: External nose unremarkable, nares patent, septum intact, no evidence of congestion. Oral cavity: Mucosa moist, no evidence of ulcer, mass, or lesion Throat: Clear Neck/thyroid: Neck supple, full range of motion, no cervical lymphadenopathy, no evidence of thyromegaly Ultrasound-guided thyroid needle aspiration biopsy Indication: Nodular goiter Consent: Proper consent was obtained Prep: Overlying skin is treated with alcohol Guidance: Ultrasound utilize for proper guidance Aspiration: Thyroid gland/mass is palpated. Nodule(s) to be biopsied have been identified utilizingultrasound. The patient is asked not to talk or swallow during the procedure. A fine-needle biopsy needle is inserted into the mass under ultrasound guidance. Aspiration of the nodule is performed and material is placed on slides and cell block. Afirma specimen also submitted. Multiple aspirations are completed without difficulty. Disposition: The biopsy material was sent for pathology. Pressure is applied to the area biopsy. The patient tolerated the procedure extremely well. Lymph nodes: No cervical lymphadenopathy Skin: Warm and dry, no evidence of suspicious lesions, no rash Heart: No jugular venous distention, point of maximal impulse normal Lungs: Good air movement, no audible wheezing, no shortness of breath Chest: Normal shape and expansion Abdomen: Normal, soft, nontender, nondistended Musculoskeletal: Cervical spine normal, full range of motion Extremities: No clubbing, cyanosis, or edema Peripheral pulses: 2+ radial, 2+ carotid Neurologic: Alert and oriented, cranial nerves 2-12 are grossly intact Psych: Alert and oriented, normal affect, no evidence of distress Assessment/Plan Diagnoses and all orders for this visit: Thyroid nodule Comments: This patient will return in 2 weeks to review the results of her needle aspiration biopsy Nontoxic multinodular goiter Comments: Recommend yearly ultrasound for evaluation of multinodular goiter documented in this encounter Plan of Treatment Upcoming Encounters Date Type Department Care Team (Late st Contact Info) Description 03/25/2025 10:45 AM EDT Office Visit [facility] [address] [place] [address] Jose Harden DO [address] [place] [address] 11/09/2025 9:00 AM EDT Office Visit [facility] [address] [place] [address] Mirela Preston PA [address] [place] [address] 03/20/2026 2:00 PM EDT Office Visit [facility] [address] [place] [address] Candice Marvin MD [address] [place] [address] documented as of this encounter Visit Diagnoses Diagnosis Thyroid nodule- Primary Nontoxic uninodular goiter Nontoxic multinodular goiter Nontoxic multinodular goiter documented in this encounter Care Teams Dental Services Director Relationship Specialty Start Date End Date Indy Gilbert NP [facility] [place] [address] [place] [address] PCP - General Family Medicine 10/27/23 documented as of this encounter
--- OUTSIDE RECORDS SUMMARY | 2025-03-21 13:50 | XMS_ITS | Encounter Summary ---
Author Organization [facility] Address [address] [place] [address] Care Team Providers Care Barrel Roller Operator Name Role Phone Indy Gilbert NP Primary Care Provider Reason for Visit * Reason Comments Thyroid Problem * Other Medical (Routine) - Pending Review Specialty Diagnoses / Procedures Referred By Contbarry t Referred To Contact Endocrinology Diagnoses Other specified abnormal findings of blood chemistry Procedures DE OFFICE/OUTPATIENT NEW MODERATE MDM 45 MINUTES Indy Gilbert NP [facility] Referrals ONLY fax: Candice Marvin MD [address] [place] [address] Phone: tel: fax: Referral ID Status Reason Start Date Expiration Date V isits Requested Visits Authorized [id number] Pending Review 01/26/2025 07/25/2025 1 1 Encounter Details Date Type Department Care Team (Late st Contact Info) Description 03/21/2025 1:50 PM EDT Office Visit [facility] [address] [place] [address] Candice Marvin MD [address] [place] [address] Multinodular goiter (Primary Dx); Abnormal finding on thyroid function test; Encounter for dietary consultation; Class 2 obesity due to excess calories without serious comorbidity with body mass index (BMI) of 36.0 to 36.9 in adult Social History Tobacco Use Types Packs/Day Years [...] Taken Comments Blood Pressure - - Pulse 111 03/21/2025 1:42 PM EDT Temperature - - Respiratory Rate 16 03/21/2025 1:42 PM EDT Oxygen Saturation 98% 03/21/2025 1:42 PM EDT Inhaled Oxygen Concentration - - Weight 93.4 kg (206 lb) 03/21/2025 1:42 PM EDT Height 160 cm (5' 3 ) 03/21/2025 1:42 PM EDT Body Mass Index 36.49 03/21/2025 1:42 PM EDT documented in this encounter Progress Notes * Candice Marvin MD - 03/21/2025 1:50 PM EDT Margoth Alvarez is a 29 y.o. female Indy Gilbert,* presents with chief complaint of Thyroid Problem HPI: History of Present Illness The patient is a new patient referred by Indy Gilbert for abnormal thyroid function tests. 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 She experiences a range of symptoms including weight gain, constipation, memory issues, and heat intolerance. Results Laboratory Studies T3 mildly high at 208 (71-180), free T3 normal at 3.04 (2.18-3.98) , TSH normal at 0.925, TPO normal at 9. SUBJECTIVE: MEDICATIONS: Current Outpatient Medications Medication Instructions Ascorbic Acid (vitamin C) 1000 MG tablet busPIRone (BUSPAR) 10 mg Cholecalciferol (Vitamin D) 125 MCG (5000 UT) capsule etonogestrel-ethinyl estradiol (Nuvaring) 0.12-0.015 MG/24HR vaginal ring 1 Ring, Vaginal, Every 28days, Insert vaginal ring for 3 weeks, then remove for 1 week. ferrous sulfate 325 mg, 3 times daily with meals Magnesium 100 MG capsule metFORMIN (GLUCOPHAGE) 500 mg, Oral, Daily with breakfast omega-3 acid ethyl esters (LOVAZA) 1 g, 2 times daily phentermine (ADIPEX-P) 37.5 mg, Oral, Daily before breakfast zinc 30 mg, Daily ALLERGIES: Allergies Allergen Reactions Amoxicillin Itching, Rash and Shortness of breath Cinnamon Anaphylaxis Red Dye Other Reaction(s): Swelling of Lip/Tongue/Throat Red Dye #40 (Allura Red) Itching and Swelling Other Reaction(s): hives Past Medical History: Diagnosis Date Anxiety 02/19/2025 BMI 36.0-36.9,adult 02/19/2025 Breast lump Candidal intertrigo 02/19/2025 Chicken pox Choledocholithiasis 02/19/2025 Problem List clean-up per request of Phys. [facility] Cholelithiasis 02/19/2025 Problem List clean-up per request of Phys. [facility]HR [facility] Elevated LFTs 02/19/2025 Problem List clean-up per request of Phys. EHR [facility] Family history of cancer Family history of thyroid nodule 02/19/2025 Fibrocystic disease of right breast 02/19/2025 Fibroid 2014 Gallstone pancreatitis ([facility]) 02/19/2025 Problem List clean-up per request of Phys. [facility]HR [facility] Heart disease High serum triiodothyronine (T3) 02/19/2025 Hyperbilirubinemia 02/19/2025 Problem List clean-up per request of Phys. EHR [facility] Hypertension Low iron Migraine headache 02/19/2025 Migraine without aura and without status migrainosus, not intractable 02/19/2025 Migraines Motion sickness 02/19/2025 Non morbid obesity due to excess calories 02/19/2025 Poor posture 02/19/2025 , delivered ([facility]) 02/19/2025 Problem List clean-up per request of Phys. EHR [facility] -induced hypertension ([facility]) 02/19/2025 Problem List clean-up per request of Phys. EHR [facility]te Primary hypertension 02/19/2025 Right upper quadrant pain 02/19/2025 Status post delivery 02/19/2025 Problem List clean-up per request of Phys. EHR [facility] Thyroid nodule 02/19/2025 UTI (urinary tract infection) 02/19/2025 Problem List clean-up per request of Phys. EHR [facility]mte Past Surgical History: Procedure Laterality Date BI US GUIDED BREAST LOCALIZATION AND BIOPSY LEFT Left 10/04/2024 BI US GUIDED BREAST LOCALIZATION AND BIOPSY LEFT 10/04/2024 BREAST BIOPSY 2014 BREAST LUMPECTOMY Right x2 in right breast, benign, [facility] SECTION, LOW TRANSVERSE 03/22/2021 CHOLECYSTECTOMY 08/27/2021 Lap TONSILLECTOMY WISDOM TOOTH EXTRACTION 2019 wisdom teeth REVIEW OF SYMPTOMS: 14 POINT OF SYSTEM REVIEWED AND NEGATIVE OBJECTIVE: Visit Vitals Pulse (!) 111 Resp 16 Ht 5' 3 Wt 206 lb SpO2 98% BMI 36.49 kg/m?? OB Status Having periods Smoking Status Never BSA 2.04 m?? Physical Exam Constitutional: Appearance: Normal appearance. She is normal weight. HENT: Head: Normocephalic and atraumatic. Right Ear: External ear normal. Nose: Nose normal. Mouth/Throat: Pharynx: Oropharynx is clear. Eyes: Extraocular Movements: Extraocular movements intact. Pupils: Pupils are equal, round, and reactive to light. Cardiovascular: Rate and Rhythm: Normal rate and regular rhythm. Pulmonary: Effort: Pulmonary effort is normal. Abdominal: General: Abdomen is flat. Palpations: Abdomen is soft. Musculoskeletal: General: Normal range of motion. Skin: General: Skin is warm. Neurological: General: No focal deficit present. Mental Status: She is alert. Psychiatric: Mood and Affect: Mood normal. Behavior: Behavior normal. ASSESSMENT AND PLAN: Assessment/Plan Diagnoses and all orders for this visit: Multinodular goiter - T3, free; Future - T4, free; Future - TSH; Future Abnormal finding on thyroid function test - T3, free; Future - T4, free; Future - TSH; Future Encounter for dietary consultation Class 2 obesity due to excess calories without serious comorbidity with body mass index (BMI) of 36.0 to 36.9 in adult Diet and exercise reviewed with the patient Assessment & Plan 1. Abnormal thyroid function test: - Mildly high T3 with normal free T3 and TSH, likely related to control. - No medication needed at this time. - Repeat thyroid function test with TSH, free T4, and free T3. Results will be communicated. 2. Multinodular goiter: - Multinodular goiter status post biopsy with her largest nodule on the left side, showing colloid cyst, [place] 2. - Repeat ultrasound in 1 year. Follow-up with ENT. Follow-up: Repeat thyroid function test with TSH, free T4, and free T3. Repeat ultrasound in 1 year. Follow-up with ENT in 1 year. documented in this encounter Plan of Treatment Upcoming Encounters Date Type Department Care Team (Late st Contact Info) Description 03/25/2025 10:45 AM EDT Office Visit [facility] [address] [place] [address] Jose Harden DO [address] [place] [address] 11/09/2025 9:00 AM EDT Office Visit [facility] [address] [place] [address] Mirela Preston PA [address] [place] [address] 03/20/2026 2:00 PM EDT Office Visit [facility] [address] [place] [address] Candice Marvin MD [address] [place] [address] Scheduled Orders Name Type Priority Associated Diagnoses Orde r Schedule T3, free Lab Routine Multinodular goiter Abnormal finding on thyroid function test Expected: 03/21/2025 (Approximate), Expires: 03/21/2026 T4, free Lab Routine Multinodular goiter Abnormal finding on thyroid function test Expected: 03/21/2025 (Approximate), Expires: 03/21/2026 TSH Lab Routine Multinodular goiter Abnormal finding on thyroid function test Expected: 03/21/2025 (Approximate), Expires: 03/21/2026 documented as of this encounter Visit Diagnoses Diagnosis Multinodular goiter- Primary Nontoxic multinodular goiter Abnormal finding on thyroid function test Encounter for dietary consultation Class 2 obesity due to excess calories without serious comorbidity with body mass index (BMI) of 36.0 to 36.9 in adult documented in this encounter Care Teams Barrel Roller Operator Relationship Specialty Start Date End Date Indy Gilbert NP [address] [place] [address] PCP - General Family Medicine 10/27/23 documented as of this encounter
--- OUTSIDE RECORDS SUMMARY | 2025-03-21 14:58 | XMS_ITS | Encounter Summary ---
Author Organization [facility] Address [address] [place] [address] Care Team Providers Care Desk Officer Name Role Phone Migdalia Gilbertfer George [employer]IGN LANGUAGE TEACHER Primary Care Provider Encounter Details Date Type Department Care Team (Late Contact Info) Description 10/08/2024 Abstract [facility] [address] [place] [address] Magno Staley DO [address] [place] [address] Social History Tobacco Use Types Packs/Day Years Used Date Smoking Tobacco: Never Smokeless Tobacco: Never Alcohol Use Standard Drinks/Week Comments Yes 0 (1 standard drink = 0.6 oz pure alcohol) caffeine: 1-2 cups per day coffee, soda Comments No Sex and Gender Information Value Date Recorded Sex Assigned at Not on file Legal Sex Female 9:44 PM EDT Gender Identity Not on file Sexual Orientation Not on file documented as of this encounter Plan of Treatment Upcoming Encounters Date Type Department Care Team (Late Contact Info) Description 03/25/2025 10:45 AM EDT Office Visit [facility] [address] [place] [phone] Jose Harden DO [address] [place] [address] 11/09/2025 9:00 AM EDT Office Visit [facility] [address] [place] [address] Mirela Preston PA [address] [place] [address] 03/20/2026 2:00 PM EDT Office Visit [facility] [address] [place] [address] Candice Marvin MD [address] [place] [address] documented as of this encounter Visit Diagnoses Not on filedocumented in this encounter Care Teams Desk Officer Relationship Specialty Start Date End Date Indy Gilbert NP [address] [facility] [place] [address] PCP - General Family Medicine 10/27/23 documented as of this encounter
--- OUTSIDE RECORDS SUMMARY | 2025-03-21 14:58 | XMS_ITS | Encounter Summary ---
Author Organization [facility] Address [address] [place] [address] Care Team Providers Care Car Dumper Name Role Phone Migdalia Giblertfer George BUSINESS REPRESENTATIVE Primary Care Provider Encounter Details Date Type Department Care Team (Late Contact Info) Description 09/29/2024 Abstract [facility] [address] [place] [address] Magno Staley DO [address] [place] [address] Social History Tobacco Use Types Packs/Day Years [...] Office Visit [facility] [address] [place] [phone] Jose Harden DO [address] [place] [address] 11/09/2025 9:00 AM EDT Office Visit [facility] [address] [place] [address] Mirela Preston PA [address] [place] [address] 03/20/2026 2:00 PM EDT Office Visit [facility] [address] [place] [address] Candice Marvin MD [address] [place] [address] documented as of this encounter Visit Diagnoses Not on filedocumented in this encounter Care Teams Car Dumper Relationship Specialty Start Date End Date Indy Gilbert NP [address] [facility] [place] [address] PCP - General Family Medicine 10/27/23 documented as of this encounter
--- OUTSIDE RECORDS SUMMARY | 2025-03-21 14:58 | XMS_ITS | Encounter Summary ---
Author Organization [facility] Address [address] [place] [address] Care Team Providers Care Mobile Marketing Specialist Name Role Phone Indy Gilbert COMPLIANCE PARALEGAL Primary Care Provider Encounter Details Date Type Department Care Team (Late Contact Info) Description 03/21/2025 Bamboo flowsheet [facility] [address] [place] [phone] Candice Marvin MD [address] [place] [address] Social History Tobacco Use Types Packs/Day Years [...] Office Visit [facility] [address] [place] [address] Jose Harden DO [address] [place], [place] [id number] 11/09/2025 9:00 AM EDT Office Visit [facility] [address] [place] [address] Mirela Preston PA [address] [facility] [address] [place], [place] [address] 03/20/2026 2:00 PM EDT Office Visit [facility] [place] [facility] [address] [place] [address] Candice Marvin MD [address] [place] [address] documented as of this encounter Visit Diagnoses Not on filedocumented in this encounter Care Teams Mobile Marketing Specialist Relationship Specialty Start Date End Date Indy Gilbert NP [facility] [facility] [place] [address] [address] PCP - General Family Medicine 10/27/23 documented as of this encounter
--- OUTSIDE RECORDS SUMMARY | 2025-03-21 14:58 | XMS_ITS | Encounter Summary ---
Author Organization [facility] Address [address] [place] [address] Care Team Providers Care Configuration Management Advisor Name Role Phone Indy Gilbert INTERIOR DECORATOR PAINTING Primary Care Provider Encounter Details Date Type Department Care Team (Latest Contact Info) Description 03/07/2025 Travel Social History Tobacco Use Types Packs/Day Years [...] Office Visit [facility] [address] [place] [phone] Jose Harden DO [address] [place] [address] 11/09/2025 9:00 AM EDT Office Visit [facility] [address] [place] [address] Mirela Preston PA [address] [facility] [address] [place], [place] [address] 03/20/2026 2:00 PM EDT Office Visit [facility] [place] [facility] [address] [place] [address] Candice Marvin MD [address] [place] [address] documented as of this encounter Visit Diagnoses Not on filedocumented in this encounter Care Teams Configuration Management Advisor Relationship Specialty Start Date End Date Indy Gilbert NP [address] [place] [address] [place] [address] PCP - General Family Medicine 10/27/23 documented as of this encounter
--- OUTSIDE RECORDS SUMMARY | 2025-03-21 14:58 | XMS_ITS | Encounter Summary ---
Author Organization [facility] Address [address] [place] [address] Care Team Providers Care Air Commodore Name Role Phone Migdalia Gilbertfer George TUNNEL KILN OPERATOR Primary Care Provider Encounter Details Date Type Department Care Team (Late Contact Info) Description 10/01/2024 Abstract [facility] [address] [place] [address] Magno Staley DO [address] [place] [address] Social History Tobacco Use Types Packs/Day Years [...] Office Visit [facility] [address] [place] [phone] Jose Harden DO [address] [place] [address] 11/09/2025 9:00 AM EDT Office Visit [facility] JARQUIN [address] [place] [address] Mirela Preston PA [address] [place] [address] 03/20/2026 2:00 PM EDT Office Visit [facility] [address] [place] [address] Candice Marvin MD [address] [place] [address] documented as of this encounter Visit Diagnoses Not on filedocumented in this encounter Care Teams Air Commodore Relationship Specialty Start Date End Date Indy Gilbert NP [address] [facility] [place] [place] [address] PCP - General Family Medicine 10/27/23 documented as of this encounter
--- OUTSIDE RECORDS SUMMARY | 2025-03-21 14:58 | XMS_ITS | Clinical Summary ---
Author Organization [facility] Address [address] [place] [address] Care Team Providers Care Software Analyst Name Role Phone Indy Gilbert NP Primary Care Provider Allergies Active Allergy Reactions Criticality Noted Date Comments Amoxicillin Itching,Rash,Shortne ss of breath High 10/29/2023 Cinnamon Anaphylaxis High 10/29/2023 Red Dye 01/25/2021 Other Reaction(s): Swelling of Lip/Tongue/Throat Red Dye #40 (Allura Red) Itching,Swelling 10/29/2023 Other Reaction(s): hives Medications busPIRone (Buspar) 10 MG tablet 10 mg 4 Active Ascorbic Acid (vitamin C) 1000 MG tablet Activ e Cholecalciferol (Vitamin D) 125 MCG (5000 UT) capsule Active Magnesium 100 MG capsule Active metFORMIN (Glucophage) 500 MG tabletIndicatio ns:Encounter for weight management Take 1 tablet (500 mg) by mouth in the morning. Take with meals. 30 tablet 11 4 06/14/20 25 Active Additional Information Patient not taking.Reported on 03/21/2025 omega-3 acid ethyl esters (Lovaza) 1 g capsule Take 1 g by mouth in the morning and 1 g before bedtime. Active ferrous sulfate 325 (65 Fe) MG EC tablet Take 325 mg by mouth in the morning and 325 mg at noon and 325 mg in the evening. Take with meals. Do not crush, chew, or split. Active etonogestrel-et hinyl estradiol (Nuvaring) 0.12-0.015 MG/24HR vaginal ringIndications : control counseling Insert 1 Ring into the vagina every 28 (twenty-eight) days Insert vaginal ring for 3 weeks, then remove for 1 week. 1 each 11/04/19 26 Active phentermine (Adipex-P) 37.5 MG tabletIndicatio ns:Encounter for weight management Take 1 tablet (37.5 mg) by mouth in the morning. Take before meals. 90 tablet Active Additional Information Patient not taking.Reported on 03/21/2025 zinc 30 MG tablet Take 30 mg by mouth Daily Active Active Problems Problem Noted Date Diagnosed Date Encounter for initial prescription of contracept patricia 06/14/2024 Mastitis 06/14/2024 Encounter for weight management 06/14/2024 control counseling 03/22/2024 Pelvic pain in female 03/22/2024 Resolved Problems Problem Noted Date Diagnosed Date Resolved Date Anxiety 02/19/2025 02/19/2025 BMI 36.0-36.9,adult 02/19/2025 02/20/20 25 Candidal intertrigo 02/19/2025 02/20/20 25 Choledocholithiasis 02/19/2025 02/20/20 25 Overview (02/19/2025): Problem List clean-up per request of Phys. EHR Cmte Elevated LFTs 02/19/2025 02/19/2025 Overview (02/19/2025): Problem List clean-up per request of Phys. EHR Cmte Family history of thyroid nodule 02/19/2025 02/19/2025 Fibrocystic disease of right breast 02/19/2025 02/19/2025 Gallstone pancreatitis ([facility]-HCC) 02/19/2025 02/19/2025 Overview (02/19/2025): Problem List clean-up per request of Phys. EHR Cmte Cholelithiasis 02/19/2025 02/19/2025 Overview (02/19/2025): Problem List clean-up per request of Phys. EHR Cmte High serum triiodothyronine (T3) 02/19/2025 02/19/2025 Hyperbilirubinemia 02/19/2025 Overview (02/19/2025): Problem List clean-up per request of Phys. EHR Cmte Migraine headache 02/19/2025 02/19/2025 Migraine without aura and wi thout status migrainosus, not intractable 02/19/2025 02/19/2025 Motion sickness 02/19/2025 02/19/2025 Non morbid obesity due to excess calories 02/19/2025 02/19/2025 Poor posture 02/19/2025 02/19/2025 , delivered ([facility]) 02/19/2025 02/19/2025 Overview (02/19/2025): Problem List clean-up per request of Phys. EHR Cmte -induced hypertension ([facility]) 02/19/2025 02/19/2025 Overview (02/19/2025): Problem List clean-up per request of Phys. EHR Cmte Primary hypertension 02/19/2025 025 Right upper quadrant pain 02/19/2025 Status post delivery 02/19/2025 02/19/2025 Overview (02/19/2025): Problem List clean-up per request of Phys. EHR Cmte Thyroid nodule 02/19/2025 02/19/2025 UTI (urinary tract infection) 02/19/2025 02/19/2025 Overview (02/19/2025): Problem List clean-up per request of Phys. EHR Cmte Encounters Date Type Department Care Team Description 03/21/2025 1:50 PM EDT Office Visit [facility] [place] [facility] [address] [place] [address] Candice Marvin MD Multinodular goiter (Primary Dx); Abnormal finding on thyroid function test; Encounter for dietary consultation; Class 2 obesity due to excess calories without serious comorbidity with body mass index (BMI) of 36.0 to 36.9 in adult 03/21/2025 Bamboo flowsheet [facility] [place] [facility] [address] [place] [address] Candice Marvin MD 03/07/2025 11:00 AM EDT Office Visit [facility] [place] [facility] [address] [place] [address] Jose Harden, DO Thyroid nodule (Primary Dx); Nontoxic multinodular goiter 03/07/2025 Bamboo flowsheet [facility] [place] [facility] [address] [place] [address] Jose Harden, 03/07/2025 Travel 02/22/2025 2:00 PM EDT Office Visit [facility] [address] [place] [address] Jose Harden, Nontoxic multinodular goiter (Primary Dx); Thyroid nodule ; Thyroid dysfunction 02/22/2025 Bamboo flowsheet [facility] [place] [facility] [address] [place] [address] Jose Harden, 02/22/2025 Travel 01/17/2025 Clinisync Result Encounter NOMS External Department Unsolicited Jorge Staley, DO 01/17/2025 Clinisync Result Encounter NOMS External Department Unsolicited Jorge Staley, DO 01/11/2025 Telephone [facility] JARQUIN [address] [place] [address] Meche Contreras [place] 01/05/2025 Telephone [facility] BISHOPGYN [address] [place] [address] Jorge Staley, DO 12/20/2024 1:30 PM EDT Office Visit [facility] JARQUIN [address] [place] [address] Leida Bass NP Encounter for weight management 12/20/2024 Bamboo flowsheet [facility] JARQUIN [address] [place] [phone] Leida Bass NP from Last 3 Months Immunizations Immunization Administration Dates Next Due Tdap 03/24/2021 Family History Medical History Relation Name Comments Asthma Brother 2 Matias Coyer Rashes / Skin problems Brother 3 Mateusz Melvin Asthma Brother 4 Matias Coyer Rashes / Skin problems Brother 5 Mateusz Melvin Heart disease Father Heart failure Father's Brother 1 Geo Jankowiak Heart failure Father's Brother 2 Geo [place] Heart disease Maternal Grandmother Diabetes Mother Ellen Coyer Heart disease Mother Ellen Coyer Migraines Mother Ellen Coyer Thyroid cancer Mother Ellen Coyer Thyroid disease Mother Ellen Coyer Cancer Mother's Sister 1 Alina Coyer Cancer Mother's Sister 2 Alina Coyer Alcohol abuse Paternal Grandfather COPD Paternal Grandmother Nyasia Jankowiak Heart disease Paternal Grandmother Nyasia [place]ank[place] Heart failure Paternal Grandmother Nyasia Jankowiak Relation Name Status Comments Brother 1 x2 Brother 2 Matias Coyer Alive Brother 3 Mateusz Melvin Alive Brother 4 Matias Coyer Alive Brother 5 Mateusz Melvin Alive Father Alive Father's Brother 1 Geo Jankow[place]ak Alive Father's Brother 2 Geo [place] Alive Maternal Grandfather Maternal Grandmother Alive Mother Ellen Coyer Alive Mother's Sister 1 Alina Coyer Alive Mother's Sister 2 Alina Coyer Alive Paternal Grandfather Paternal Grandmother Nyasia Jankowiak Social History Tobacco Use Types Packs/Day Years [...] on file Sexual Orientation Not on file Last Filed Vital Signs Vital Sign Reading Time Taken Comments Blood Pressure 130/80 11/03/2024 1:47 PM EDT Pulse 111 03/21/2025 1:42 PM EDT Temperature - - Respiratory Rate 16 03/21/2025 1:42 PM EDT Oxygen Saturation 98% 03/21/2025 1:42 PM EDT Inhaled Oxygen Concentration - - Weight 93.4 kg (206 lb) 03/21/2025 1:42 PM EDT Height 160 cm (5' 3 ) 03/21/2025 1:42 PM EDT Body Mass Index 36.49 03/21/2025 1:42 PM EDT Plan of Treatment Upcoming Encounters Date Type Department Care Team (Late st Contact Info) Description 03/25/2025 10:45 AM EDT Office Visit [facility] [address] [place] [address] Jose Harden DO [address] [place] [address] 11/09/2025 9:00 AM EDT Office Visit WILLIAM JARQUIN [address] [place] [address] Mirela Preston PA [address] [facility] [place] [address] 03/20/2026 2:00 PM EDT Office Visit [facility] [address] [place] [address] Candice Marvin MD [address] [place] [address] Procedures Procedure Name Priority Date/Time Associated Diagnosis Comments THYROID PEROXIDASE ANTIBODIES Routine 11:15 AM EDT Thyroid nodule ALL DEHYDROEPIANDROSTERONE Routine 01/17 9:40 AM EDT ALL FOLLICLE STIMULATING HORMONE Routine 01/17/2025 9:40 AM EDT ALL LUTEINIZING HORMONE Routine 01/18/20 25 9:40 AM EDT ALL DHEA SULFATE Routine 01/17/2025 9:40 AM EDT HMHP T3 TOTAL Routine 01/17/2025 9:40 AM EDT ALL THYROXINE (T4) FREE Routine 01/18/20 25 9:40 AM EDT MLR HEMOGLOBIN A1C Routine 01/17/2025 9: 40 AM EDT [facility] PREG QUANT HCG Routine 01/17/2025 9: 40 AM EDT ALL THYROID STIM HORMONE Routine 025 9:40 AM EDT ALL T3 FREE Routine 01/17/2025 9:40 AM EDT ALL CBC WITH AUTO DIFF Routine 9:40 AM EDT US PELVIS TRANSVAGINAL 8:02 AM EDT ALL THYROXINE (T4) Routine 01/17/2025 7: 26 AM EDT from Last 3 Months Results * Thyroid peroxidase antibody (03/07/2025 11:15 AM EDT) Blood Venous blood specimen / Unknown us Jose Harden DO LAB BLOOD ORDERABLES Final Result [address] [place] [address], * [facility] PREG QUANT HCG (01/17/2025 9:40 AM EDT) HCG QUANTITATIVE <1 mIU/mL [facility] Comment: 5-50 0.2-1 WEEK 50-500 1-2 WEEKS 100-5,000 2-3 WEEKS 500-10,000 3-4 WEEKS 1,000-50,000 4-5 WEEKS 10,000-100,000 5-6 WEEKS 15,000-200,000 6-8 WEEKS 10,000-100,000 2-3 MONTHS 01/17/2025 9:40 AM EDT 01/17/2025 9:44 AM EDT Narrative CLINISYNC - 01/17/2025 10:27 AM EDT [facility] Final Result Performing Organization Address City/[facility]/ZIP Co de Phone Number [facility] * MLR HEMOGLOBIN A1C (01/17/2025 9:40 AM EDT) [facility] GLYCOHEMOGLOBIN A1C 5.3 4.5 - 6.2 % [facility] Comment: ADA RECOMMENDED LIMIT 4.0 - 6.0 ADA THERAPEUTIC TARGET < 7.0 ACTION SUGGESTED > 7.0 ESTIMATED AVERAGE GLUCOSE 105 mg/dL [facility] 01/17/2025 9:40 AM EDT 01/17/2025 9:44 AM EDT Narrative CLINISYNC - 01/17/2025 10:33 AM EDT [facility] Final Result [facility] * (ABNORMAL) HMHP T3 TOTAL (01/17/2025 9:40 AM EDT) [facility] TRIIODOTHYRONINE (T3) 208(A) 71 - 180 ng/dL [facility] Comment: Performed at: [address] [id number] Customer Operations Representative: Augustine Layton PhD, Phone: [phone] 01/17/2025 9:40 AM EDT 01/17/2025 9:44 AM EDT Narrative CLINISYNC - 01/18/2025 8:09 AM EDT us Jorge Rebeka DO CLINISYNC Final Result CLINISYNC TB * ALL THYROXINE (T4) FREE (01/17/2025 9:40 AM EDT) FREE T4 1.07 0.76 - 1.46 ng/dL [facility] 01/17/2025 9:40 AM EDT 01/17/2025 9:44 AM EDT Narrative CLINISYNC - 01/17/2025 10:53 AM EDT Jorge Rebeka DO CLINISYNC Final Result Performing Organization Address [facility] Co de Phone Number CLINISYNC TB * ALL THYROID STIM HORMONE (01/17/2025 9:40 AM EDT) THYROID STIMULATING HORMONE 0.925 0.358 - 3.740 uIU/mL [facility] 01/17/2025 9:40 AM EDT 01/17/2025 9:44 AM EDT Narrative CLINISYNC - 01/17/2025 10:27 AM EDT Jorge Rebeka DO CLINISYNC Final Result Performing Organization Address [facility] Co de Phone Number CLINISYNC TB * ALL T3 FREE (01/17/2025 9:40 AM EDT) FREE T3 3.04 2.18 - 3.98 pg/mL [facility] 01/17/2025 9:40 AM EDT 01/17/2025 9:44 AM EDT Narrative CLINISYNC - 01/17/2025 10:27 AM EDT us Jorge Rebeka DO CLINISYNC Final Result CLINISYNC [facility] * ALL LUTEINIZING HORMONE (01/17/2025 9:40 AM EDT) LUTEINIZING HORMONE(LH) 4.4 . mIU/mL [facility] Comment: Adult Female Range Follicular phase 2.4 - 12.6 Ovulation phase 14.0 - 95.6 Luteal phase 1.0 - 11.4 Postmenopausal 7.7 - 58.5 Performed at: [address] [id number] Customer Operations Representative: Augustine Layton PhD, Phone: [phone] 01/17/2025 9:40 AM EDT 01/17/2025 9:44 AM EDT Narrative CLINISYNC - 01/18/2025 8:09 AM EDT [facility] Rebeka DO CLINISYNC Final Result Performing Organization Address [facility] de Phone Number [facility] * ALL FOLLICLE STIMULATING HORMONE (01/17/2025 9:40 AM EDT) FSH 2.6 . mIU/mL [facility] Comment: Adult Female Range Follicular phase 3.5 - 12.5 Ovulation phase 4.7 - 21.5 Luteal phase 1.7 - 7.7 Postmenopausal 25.8 - 134.8 01/17/2025 9:40 AM EDT 01/17/2025 9:44 AM EDT Narrative CLINISYNC - 01/18/2025 8:09 AM EDT [facility] Rebeka DO CLINISYNC Final Result Performing Organization Address [facility] Co de Phone Number [facility] * ALL DHEA SULFATE (01/17/2025 9:40 AM EDT) DHEA-SULFATE 136.0 84.8 - 378.0 ug/dL [facility] 01/17/2025 9:40 AM EDT 01/17/2025 9:44 AM EDT Narrative CLINISYNC - 01/18/2025 8:09 AM EDT [facility] Rebeka DO CLINISYNC Final [facility] * ALL DEHYDROEPIANDROSTERONE (01/17/2025 9:40 AM EDT) Pathologist [facility] DHEA, SERUM 243 31 - 701 ng/dL [facility] Comment: This test was developed and its performance characteristics determined by [facility]. It has not been cleared or approved by the Food and Drug Administration. Performed at: [address] [id number] Customer Operations Representative: Mandi Herrera MD, Phone: [phone] 01/17/2025 9:40 AM EDT 01/17/2025 9:44 AM EDT Narrative CLINISYNC - 01/20/2025 4:09 PM EDT Jorge Rebeka DO CLINISYNC Final Result Performing Organization Address City/[facility]/ZIP Co de Phone Number [facility] * (ABNORMAL) ALL CBC WITH AUTO DIFF (01/17/2025 9:40 AM EDT) Pathologist [facility] WBC 11.4(H) 4.0 - 11.0 10 3/uL [facility] TBH RBC 4.94 4.20 - 5.40 10 6/uL TBH TBH HGB 13.8 12.0 - 16.0 g/dL TB TB HCT 40.6 36.0 - 48.0 % TBH TBH MCV 82.2 81.0 - 99.0 fL TBH TBH MCH 27.9 26.7 - 34.0 pg TBH TBH MCHC 34.0 29.9 - 35.2 g/dL TB[facility] TB RDW 13.2 11.0 - 15.0 % TBH TBH PLT 363 150 - 450 10 3/uL TBH TBH MPV 8.9(L) 9.5 - 13.5 fL [facility]H NEUTROPHILS PERCENT AUTO 75.3(H) 43.0 - 75.0 % TBH LYMPHOCYTES PERCENT AUTO 15.2(L) 20.5 - 60.0 % [facility] MONOCYTES PERCENT AUTO 4.1 1.7 - 12.0 % [facility] TBH EO % 4.7 0.9 - 7.0 % [facility] BASOPHILS PERCENT AUTO 0.4 0.2 - 2.0 % [facility] IMMATURE GRANULOCYTES PCT AUTO 0.3 0.0 - 0.5 % [facility] NEUTROPHILS ABSOLUTE AUTO 8.6(H) 1.4 - 6.5 10 3/uL TBH LYMPHOCYTES ABSOLUTE AUTO 1.7 1.2 - 3.8 10 3/uL [facility] MONOCYTES ABSOLUTE AUTO 0.5 0.3 - 0.8 10 3/uL TBH TBH EO # 0.5 0.0 - 0.7 10 3/uL TBH BASOPHILS ABSOLUTE AUTO 0.0 0.0 - 0.1 10 3/uL TBH IMMATURE GRANULOCYTES ABS AUTO 0.03 0.00 - 0.03 10 3/uL [facility] 01/17/2025 9:40 AM EDT 01/17/2025 9:44 AM EDT Narrative CLINISYAL - 01/17/2025 10:07 AM EDT us Jorge Staley DO CLINISYAL Final Result Performing Organization Address City/State/[facility] Co de Phone Number [facility] * US PELVIS TRANSVAGINAL (01/17/2025 8:02 AM EDT) Anatomical Region Laterality Modality Other 01/17/2025 8:02 AM EDT Narrative 01/17/2025 8:05 AM EDT [address] [address] Ultrasound Report Signed Patient: MARGOTH WEEMS MR#: [id number] : 1995 Acct:[id number] Age/Sex: 29 / F ADM Date: 01/17/25 Loc: US Attending Dr: Jorge Staley D.O. Ordering Physician: Jorge Staley D.O. Date of Service: 01/17/25 Procedure(s): US pelvis transvaginal Accession Number(s): [id number] cc: Jorge Staley D.O.; INDY GILBERT [address] [address] Patient Name: MARGOTH WEEMS MRN: [id number] date: 1995 Sex: F Assigned Patient Location: US Current Patient Location: Accession/Order Number: [id number] Exam Date: 01/17/2025 07:59 Report Date: 01/17/2025 08:02 At the request of: JORGE STALEY DO Procedure: US pelvis transvaginal ULTRASOUND PELVIS TRANSVAGINAL CLINICAL DATA: History of polycystic ovarian symptoms. COMPARISON: 11/11/2023 Real-time ultrasound evaluation the pelvis was performed using a transvaginal approach. Estimated uterine size is approximately 7.7 x 4.7 x 3.6 cm. The endometrial lining is estimated at 6 - 7 mm. No focal myometrial abnormalities are seen. Both ovaries are identified. The right ovary measures 2.4 x 2.6 x 1.6 cm. The left ovary measures 2.3 x 1.6 x 1.9 cm. There are at least 6 tiny follicles at the periphery of the left ovary measuring up to 3 mm . There are also couple follicles on the right. There are no dominant adnexal cysts. There is documentation of ovarian blood flow. Resistive index on the right is 0.6 and on the left 0.4. No free fluid is seen. US/US pelvis transvaginal IMPRESSION: TINY FOLLICLES, GREATER ON THE LEFT, DESCRIBED. NO DOMINANT ADNEXAL CYSTS. Impression dictated by: Rachel Elias M.D. 01/17/2025 8:02 AM Dictation Location: [place] [address] Electronically authenticated by: [id number] Y Date: 01/17/2025 08:02 Dictated By: Rachel Elias M.D. Signed By: 01/17/25 0805 DD/ 0802 TD/TT: Sail Cutter: Procedure Note Radiology, Radiologist, - 01/17/2025 [place] [address] Ultrasound Report Signed Patient: MARGOTH WEEMS MMR#: [id number] : 1995Acct:[id number] Age/Sex: 29 / FADM Date: 01/17/25 Loc: US Attending Dr: Jorge Staley D.O. Ordering Physician: Jorge Staley D.O. Date of Service: 01/17/25 Procedure(s): US pelvis transvaginal Accession Number(s): [id number] cc: Jorge Staley D.O.; INDY GILBERT [place] [address] Patient Name: MARGOTH WEEMS MRN: [facility]:[id number] date: 1995 Sex: F Assigned Patient Location: Current Patient Location: US Accession/Order Number: [id number] Exam Date: 01/17/2025 07:59 Report Date: 01/17/2025 08:02 At the request of: JORGE STALEY DO Procedure: US pelvis transvaginal ULTRASOUND PELVIS TRANSVAGINAL CLINICAL DATA: History of polycystic ovarian symptoms. COMPARISON: 11/11/2023 Real-time ultrasound evaluation the pelvis was performed using atransvaginal approach. Estimated uterine size is approximately 7.7 x 4.7 x 3.6 cm. Theendometrial lining is estimated at 6 - 7 mm. No focal myometrial abnormalities areseen. Both ovaries are identified. The right ovary measures 2.4 x 2.6 x 1.6 cm. The left ovary measures 2.3 x 1.6 x 1.9 cm. There are at least 6 tiny follicles at the periphery of the left ovary measuring up to 3 mm . Thereare also couple follicles on the right. There are no dominant adnexal cysts. There is documentation of ovarian blood flow. Resistive index on theright is 0.6 and on the left 0.4. No free fluid is seen. US/US pelvis transvaginal IMPRESSION: TINY FOLLICLES, GREATER ON THE LEFT, DESCRIBED. NO DOMINANT ADNEXAL CYSTS. Impression dictated by: Rachel Elias M.D. 01/17/2025 8:02 AM Dictation Location: [place] [address] Electronically authenticated by: [id number] Y Date: 508:02 Dictated By: Rachel Elias M.D. Signed By:01/17/25804 DD/ 0802 TD/TT: Sail Cutter: us Jorge Rebeka DO CLINISYNC IMAGING Final Result * ALL THYROXINE (T4) (01/17/2025 7:26 AM EDT) T4 THYROXINE 11.60 4.80 - 13.90 ug/dL [facility] 01/17/2025 7:26 AM EDT 01/17/2025 7:27 AM EDT Narrative CLINISYNC - 01/17/2025 7:52 AM EDT us Jorge Rebeka DO CLINISYNC Final Result CLINISYNC [facility] from Last 3 Months Insurance [facility] Care Teams Software Analyst Relationship Specialty Start Date End Date Indy Gilbert NP [address] [facility] [place] [address] [place] [address] PCP - General Family Medicine 10/27/23
--- OUTSIDE RECORDS SUMMARY | 2025-03-21 14:58 | XMS_ITS | Encounter Summary ---
Author Organization [facility] Address [address] [place] [address] Care Team Providers Care Supervisor Screen Making Name Role Phone Indy Gilbert LICENSING ENGINEER Primary Care Provider Encounter Details Date Type Department Care Team (Late Contact Info) Description 03/07/2025 Bamboo flowsheet [facility] [address] [place] [address] Jose Harden, [address] [place] [address] Social History Tobacco Use Types Packs/Day Years [...] Office Visit [facility] [address] [place] [address] Jose Harden, DO [address] [place], [place] [address] 11/09/2025 9:00 AM EDT Office Visit [facility] Jeanette JARQUIN [address] [place] [address] Mirela Preston PA [address] [facility] [address] [place] [address] 03/20/2026 2:00 PM EDT Office Visit [facility] [place] [facility] [address] [place] [address] Candice Marvin MD [address] [place] [address] documented as of this encounter Visit Diagnoses Not on filedocumented in this encounter Care Teams Supervisor Screen Making Relationship Specialty Start Date End Date Indy Gilbert NP [facility] [facility] [address] [address] [place] [address] PCP - General Family Medicine 10/27/23 documented as of this encounter
--- OUTSIDE RECORDS SUMMARY | 2025-03-21 14:58 | XMS_ITS | Encounter Summary ---
Author Organization [facility] Address [address] [place] [address] Care Team Providers Care Medicine Worker Name Role Phone Indy Gilbert MECHANICAL ENGINEERING COOP Primary Care Provider Encounter Details Date Type Department Care Team (Late Contact Info) Description 11/10/2024 Orders Only [facility] [place] [facility] [address] [place] [address] Jessica Buenrostro LPN [address] [facility] [place] [address] Social History Tobacco Use Types Packs/Day Years [...] Office Visit [facility] [address] [place] [address] Jose Harden DO [address] [place] [address] 11/09/2025 9:00 AM EDT Office Visit [facility] [address] [place] [address] Mirela Preston PA [address] [place], [place] [address] 03/20/2026 2:00 PM EDT Office Visit [facility] [place] [facility] [address] [place] [address] Candice Marvin MD [address] [place] [address] documented as of this encounter Procedures Procedure Name Priority Date/Time Associated Diagnosis Comments PAP SMEAR Routine 11/03/2024 12:00 AM EDT documented in this encounter Results * Pap Smear (11/03/2024 12:00 AM EDT) Swab Cervical swab / Unknown us Rebeka Nurse [facility] LAB CYTOLOGY ORDERABLES Final Result EXTERNAL LAB documented in this encounter Visit Diagnoses Not on filedocumented in this encounter Care Teams Medicine Worker Relationship Specialty Start Date End Date Indy Gilbert NP [address] [facility] [address] [place] [id number] PCP - General Family Medicine 10/27/23 documented as of this encounter
--- OUTSIDE RECORDS SUMMARY | 2025-03-21 14:59 | XMS_ITS | Encounter Summary ---
Author Organization [facility] Address [address] [place] [address] Care Team Providers Care Real Estate Appraiser Supervisor Name Role Phone Indy Gilbert VISUAL STYLIST Primary Care Provider Encounter Details Date Type Department Care Team (Late Contact Info) Description 11/04/2023 Orders Only [facility] [address] [employer] [address] [address] Jessica Buenrostro LPN [address] [employer] [facility] [place] [address] Social History Tobacco Use Types Packs/Day Years Used Date Smoking Tobacco: Never Smokeless Tobacco: Never Alcohol Use Standard Drinks/Week Comments Yes 0 (1 standard drink = 0.6 oz pure alcohol) caffeine: 1-2 cups per day coffee, soda Comments Unknown Sex and Gender Information Value Date Recorded Sex Assigned at Not on file Legal Sex Female 9:44 PM EDT Gender Identity Not on file Sexual Orientation Not on file documented as of this encounter Plan of Treatment Upcoming Encounters Date Type Department Care Team (Late Contact Info) Description 03/25/2025 10:45 AM EDT Office Visit [facility] [address] [place] [id number] Jose Harden DO [address] [place] [address] 11/09/2025 9:00 AM EDT Office Visit [facility] JARQU[facility] [address] [facility] [place] [address] Mirela Preston PA [address] [facility] [address] [place], [place] [id number] 03/20/2026 2:00 PM EDT Office Visit [facility] [address] [place] [address] Candice Marvin MD [address] [place] [address] documented as of this encounter Procedures Procedure Name Priority Date/Time Associated Diagnosis Comments PAP SMEAR Routine 10/29/2023 12:00 AM EDT documented in this encounter Results * Pap Smear (10/29/2023 12:00 AM EDT) Swab Cervical swab / Unknown us Magno Rebeka DO LAB CYTOLOGY ORDERABLES Final Re sult EXTERNAL LAB documented in this encounter Visit Diagnoses Not on filedocumented in this encounter Care Teams Real Estate Appraiser Supervisor Relationship Specialty Start Date End Date Indy Gilbert NP [address] [facility] [address] [place] [id number] PCP - General Family Medicine 10/27/23 documented as of this encounter
--- OUTSIDE RECORDS SUMMARY | 2025-03-21 14:59 | XMS_ITS | Encounter Summary ---
Author Organization [facility] Address [address] [facility] [place] [address] Care Team Providers Care Environmental Sustainability Manager Name Role Phone Indy Gilbert ONLINE AFFILIATE MARKETING MANAGER Primary Care Provider Encounter Details Date Type Department Care Team (Late Contact Info) Description 09/29/2024 External Result Encounter [facility] [address] [place] [address] Jorge Staley DO [address] [place] [address] Social History Tobacco Use Types Packs/Day Years [...] on file documented as of this encounter Miscellaneous Notes * Result Encounter Note - Ela Cross LPN - 09/29/2024 9:25 AM EST Called pt and she had seen Dr. Patel yesterday for a follow up and he went over results with her. documented in this encounter Plan of Treatment Upcoming Encounters Date Type Department Care Team (Late Contact Info) Description 03/25/2025 10:45 AM EDT Office Visit [facility] [place] [facility] [address] [place] [phone] Jose Harden DO [address] [place] [address] 11/09/2025 9:00 AM EDT Office Visit [facility] [place] [facility] [address] [place] [address] Mirela Preston PA [address] [place] [address] 03/20/2026 2:00 PM EDT Office Visit [facility] [place] [facility] [address] [place] [address] Candice Marvin MD [address] [place] [address] documented as of this encounter Procedures Procedure Name Priority Date/Time Associated Diagnosis Comments BX BREAST US GUID INITIAL LT 10/07/2024 3:02 PM EST BI MAMMOGRAM POST BIOPSY CLIP LEFT 10/07/2024 3:02 PM EST SURGICAL PATHOLOGY ([facility]) Routine 10/04/2024 9:30 AM EST US BREAST/AXILLA RIGHT 9:24 AM EST BI US BREAST LIMITED LEFT 09/29/2024 9:24 AM EST BI MAMMOGRAM DIAGNOSTIC TOMOSYNTHESIS BILATERAL 09/29/2024 9:24 AM EST documented in this encounter Results * Left post-biopsy clip mammogram (10/07/2024 3:02 PM EST) Anatomical Region Laterality Modality Breast Left Mammography 10/07/2024 3:02 PM EST Narrative 10/04/2024 9:58 AM EST THIS EXAM WAS PERFORMED AT [facility] *ADDENDUM*Addendum issued for newly received pathology results, [...] addendum issued by Dr. Nichole. Finalized by Cecilia Nichole MD on 10/07/2024 3:01 PM [address] 1995 [id number], [id number] EXAM: US BX BREAST US GUID INITIAL LT, MAMM POST BX DIAG UNI LT, 10/04/2024 8:53 AM CLINICAL INDICATIONS: Abnormal mammogram, mass 6:00 left breast COMPARISON: 09/29/2024 PERFORMING PHYSICIAN: Cecilia Nichole MD PROCEDURE: The risks, benefits, and alternatives of the procedure were explained in detail to the patient and both verbal and written informed consent were obtained. A timeout was performed verifying the correct patient, site and procedure. The patient was placed in a supine position on the US table. Preliminary sonographic evaluation confirmed the presence of the previously described mass left. The skin was prepped and draped in usual sterile fashion. Local anesthesia was obtained using 1% lidocaine superficially and 1% lidocaine plus epinephrine within the deeper tissues along the biopsy tract. Under ultrasound guidance, a 12-gauge vacuum assisted Suros ATEC biopsy device was placed within the mass and 6 core biopsies were obtained. The biopsy device was removed, Hydromark T3 marker clip was placed under sonographic guidance, and handheld pressure was applied. The estimated blood loss is minimal. The patient tolerated the procedure well. There were no immediate complications. Post procedure mammogram: A 2D CC and LM mammogram of the left breast was obtained for evaluation of postbiopsy clip placement. Images obtained in a separate room and evaluated on a dedicated mammography workstation. This demonstrates interval placement of a Hydromark T3 clip at biopsy site, appropriately positioned. There are surrounding post biopsy changes. IMPRESSION: 1. Technically successful ultrasound-guided biopsy of the left breast. Pathology is pending. Addendum will be issued when pathology results become available. 2. Post procedure mammograms for marker placement. BiRads: Post Biopsy Finalized by Cecilia Nichole MD on 10/04/2024 9:58 AM 100 FDA Accredited Performing Facility: [facility] [place] - Mammography [address] , [facility] [address] The copy-to physician of this order is JORGE Muñoz JENNIFER The ordering physician of this order is CECILIA Greer Procedure Note Radiology, Radiologist, MD - 10/07/2024 THIS EXAM WAS PERFORMED AT [facility] *ADDENDUM*Addendum issued for newly received pathology results, 53:00 PM: For the left breast biopsy site there are pathology results offibroadenoma. See dedicated pathology report for further detail. Results are benign and compatible with imaging characteristics. Nofollow-up required in the setting of clinical stability. If patientnotices increase in size or new symptoms, recommend repeat ultrasoundevaluation. Procedure performed by Dr. Nichole, addendum issued by Dr. Nichole. Finalized by Cecilia Nichole MD on 10/07/2024 3:01 PM 100 MARGOTH EKLIN [facility] 1995 [id number], [id number] EXAM: US BX BREAST US GUID INITIAL LT, MAMM POST BX DIAG UNI LT, 58:53 AM CLINICAL INDICATIONS: Abnormal mammogram, mass 6:00 left breast COMPARISON: 09/29/2024 PERFORMING PHYSICIAN: Cecilia Nichole MD PROCEDURE: The risks, benefits, and alternatives of the procedure wereexplained in detail to the patient and both verbal and written informedconsent were obtained. A timeout was performed verifying the correctpatient, site and procedure. The patient was placed in a supine position on the US table. Preliminarysonographic evaluation confirmed the presence of the previously describedmass left. The skin was prepped and draped in usual sterile fashion. Local anesthesiawas obtained using 1% lidocaine superficially and 1% lidocaine plusepinephrine within the deeper tissues along the biopsy tract. Underultrasound guidance, a 12-gauge vacuum assisted Suros ATEC biopsy devicewas placed within the mass and 6 core biopsies were obtained. The biopsy device wasremoved, Hydromark T3 marker clip was placed under sonographic guidance,and handheld pressure was applied. The estimated blood loss is minimal. The patient tolerated the procedure well. There were no immediatecomplications. Post procedure mammogram: A 2D CC and LM mammogram of the left breast was obtained for evaluation ofpostbiopsy clip placement. Images obtained in a separate room andevaluated on a dedicated mammography workstation. This demonstrates interval placement of a Hydromark T3 clip at biopsysite, appropriately positioned. There are surrounding post biopsy changes. IMPRESSION: 1. Technically successful ultrasound-guided biopsy of the left breast.Pathology is pending. Addendum will be issued when pathology resultsbecome available. 2. Post procedure mammograms for marker placement. BiRads: Post Biopsy Finalized by Cecilia Nichole MD on 10/04/2024 9:[address] [facility] Accredited Performing Facility: [facility] Mammography [address] [facility] [address] The copy-to physician of this order is JORGE Muñoz ;INDY GILBERT The ordering physician of this order is CECILIA Greer us Jorge HERNANDEZ BI PROCEDURES Edited Result - Final * BX BREAST US GUID INITIAL LT (10/07/2024 3:02 PM EST) Anatomical Region Laterality Modality Radiographic Marina ging 10/07/2024 3:02 PM EST Narrative 10/04/2024 9:58 AM EST THIS EXAM WAS PERFORMED AT [facility] *ADDENDUM*Addendum issued for newly received pathology results, [...] addendum issued by Dr. Nichole. Finalized by Cecilia Nichole MD on 10/07/2024 3:01 PM 100 MARGOTH WEEMS 1995 [id number], [id number] EXAM: US BX BREAST US GUID INITIAL LT, MAMM POST BX DIAG UNI LT, 10/04/2024 8:53 AM CLINICAL INDICATIONS: Abnormal mammogram, mass 6:00 left breast COMPARISON: 09/29/2024 PERFORMING PHYSICIAN: Cecilia Nichole MD PROCEDURE: The risks, benefits, and alternatives of the procedure were explained in detail to the patient and both verbal and written informed consent were obtained. A timeout was performed verifying the correct patient, site and procedure. The patient was placed in a supine position on the US table. Preliminary sonographic evaluation confirmed the presence of the previously described mass left. The skin was prepped and draped in usual sterile fashion. Local anesthesia was obtained using 1% lidocaine superficially and 1% lidocaine plus epinephrine within the deeper tissues along the biopsy tract. Under ultrasound guidance, a 12-gauge vacuum assisted Suros ATEC biopsy device was placed within the mass and 6 core biopsies were obtained. The biopsy device was removed, Hydromark T3 marker clip was placed under sonographic guidance, and handheld pressure was applied. The estimated blood loss is minimal. The patient tolerated the procedure well. There were no immediate complications. Post procedure mammogram: A 2D CC and LM mammogram of the left breast was obtained for evaluation of postbiopsy clip placement. Images obtained in a separate room and evaluated on a dedicated mammography workstation. This demonstrates interval placement of a Hydromark T3 clip at biopsy site, appropriately positioned. There are surrounding post biopsy changes. IMPRESSION: 1. Technically successful ultrasound-guided biopsy of the left breast. Pathology is pending. Addendum will be issued when pathology results become available. 2. Post procedure mammograms for marker placement. BiRads: Post Biopsy Finalized by Cecilia Nichole MD on 10/04/2024 9:58 AM 100 Procedure Note Radiology, Radiologist, - 10/07/2024 THIS EXAM WAS PERFORMED AT [facility] *ADDENDUM*Addendum issued for newly received pathology results, 53:00 PM: For the left breast biopsy site there are pathology results offibroadenoma. See dedicated pathology report for further detail. Results are benign and compatible with imaging characteristics. Nofollow-up required in the setting of clinical stability. If patientnotices increase in size or new symptoms, recommend repeat ultrasoundevaluation. Procedure performed by Dr. Nichole, addendum issued by Dr. Nichole. Finalized by Cecilia Nichole MD on 10/07/2024 3:01 PM 100 MARGOTHSTEPHANIE NEVILEL [facility] 1995 [id number], [id number] EXAM: US BX BREAST US GUID INITIAL LT, MAMM POST BX DIAG UNI LT, 58:53 AM CLINICAL INDICATIONS: Abnormal mammogram, mass 6:00 left breast COMPARISON: 09/29/2024 PERFORMING PHYSICIAN: Cecilia Nichole MD PROCEDURE: The risks, benefits, and alternatives of the procedure wereexplained in detail to the patient and both verbal and written informedconsent were obtained. A timeout was performed verifying the correctpatient, site and procedure. The patient was placed in a supine position on the US table. Preliminarysonographic evaluation confirmed the presence of the previously describedmass left. The skin was prepped and draped in usual sterile fashion. Local anesthesiawas obtained using 1% lidocaine superficially and 1% lidocaine plusepinephrine within the deeper tissues along the biopsy tract. Underultrasound guidance, a 12-gauge vacuum assisted Suros ATEC biopsy devicewas placed within the mass and 6 core biopsies were obtained. The biopsy device wasremoved, Hydromark T3 marker clip was placed under sonographic guidance,and handheld pressure was applied. The estimated blood loss is minimal. The patient tolerated the procedure well. There were no immediatecomplications. Post procedure mammogram: A 2D CC and LM mammogram of the left breast was obtained for evaluation ofpostbiopsy clip placement. Images obtained in a separate room andevaluated on a dedicated mammography workstation. This demonstrates interval placement of a Hydromark T3 clip at biopsysite, appropriately positioned. There are surrounding post biopsy changes. IMPRESSION: 1. Technically successful ultrasound-guided biopsy of the left breast.Pathology is pending. Addendum will be issued when pathology resultsbecome available. 2. Post procedure mammograms for marker placement. BiRads: Post Biopsy Finalized by Cecilia Nichole MD on 10/04/2024 9:58 AM 100 Jorge Staley DO IMG XR PROCEDURES Edited Result - Final * SURGICAL PATHOLOGY ([facility]) (10/04/2024 9:30 AM EST) SURGICAL PATHOLOGY [facility] Comment: [facility] [address] [place] [address] Surgical Pathology Consultation Patient Name:MARGOTH WEEMS:1995 (Age: 28)Gender:FTaken:10/04/2024Reported:10/07/2024Physician(s):Jorge Staley DO ([phone])Copy To:MD ITA Lam [facility] HEALTHAccession #:[id number]. Rec. #:[id number]: #[id number] Final Pathologic Diagnosis Left breast,6 o'clock, 3 cmfn, mass, biopsy: BENIGN: Fibroadenoma Report Electronically Signed Out nsk/10/07/2024Melonie Lundberg MD Interpretation performed at [facility] [place] [address], License number: [id number]. Clinical History Biopsy procedure: Ultrasound; Target: Mass; [...] minutes Time in formalin before processin hours (2,ns,[id number], m8.1) SW sxw/10/04/2024NSK Specimen(s) Received Left breast Fee Codes(s): 1; 34987 The copy-to physician of this order is CECILIA Greer ; INDY GILBERT 10/04/2024 9:30 AM EST 10/04/2024 11:30 AM EST us Jorge Rebeka DO LAB BLOOD ORDERABLES Final Resul t [facility] * Bilateral diagnostic mammogram with tomosynthesis (09/29/2024 9:24 AM EST) Anatomical Region Laterality Modality Breast Bilateral Mammography 09/29/2024 9:24 AM EST Narrative 09/29/2024 9:23 AM EST THIS EXAM WAS PERFORMED AT [facility] 1995 [id number], [id number], [id number] EXAM: MAMM DIAGNOSTIC BILATERAL W CAD, US [...] 4 c BIOPSY FDA Accredited Performing Facility: [facility] [place] - Mammography [address], [facility] [address] Procedure Note Radiology, Radiologist, - 09/29/2024 THIS EXAM WAS PERFORMED AT [facility] 1995 [id number], [id number], [id number] EXAM: MAMM DIAGNOSTIC BILATERAL W CAD, US AXILLA (BREAST) RT LIMITED, USBREAST LT LIMITED, 09/29/2024 8:09 AM CLINICAL INDICATIONS: Phyllodes tumor of breast; Other specified disordersof breast, COMPARISON: None TECHNIQUE: Bilateral digital tomosynthesis MLO and CC views of the breastswere obtained, with creation of synthetic 2D views. Computer aideddetection was utilized. In addition, targeted sonography of the leftbreast in the area of mammographic abnormality and in the right axilla inthe area of lump performed. FINDINGS: The breasts are heterogeneously dense, which may obscure small masses. At the 6:00 position left breast, there is a 1.5 cm rounded nodule seen onmammogram. Targeted sonography of this demonstrates a 1.5 cmcircumscribed heterogeneous mass with mild peripheral color flowvascularity. In the right axilla, corresponding to the palpable abnormality, there is anormal-sized lymph node with cortical thickness 2.4 mm. In addition, in the right axilla, there is a 5 mm hypoechoic lesion inthe skin with some adjacent color flow vascularity, likely a sebaceouscyst. There are no other suspicious masses, calcifications, or areas ofarchitectural distortion. IMPRESSION: * Left breast mass is suspicious for malignancy. Ultrasound-guidedbiopsy recommended. I have discussed this with the patient at time ofexam. * Right axilla sebaceous cyst. Recommend correlation with clinicalfindings. BI-RADS: BI-RADS 4 - Suspicious RECOMMENDATION: Biopsy is recommended. Given personal elevated risk ofmalignancy (see below), MRI may be considered for supplemental screening.This is recommended to be performed at alternating 6 month intervals withscreening mammography. RISK ASSESSMENT: TC Lifetime risk: 23.5%. The patient's reported personal and family medical history was usedcalculate [facility] malignancy. Scores less than20% are not considered high risk per ACR guidelines and patient shouldcontinue with the above recommendation. Patient was given the results before leaving the department. Finalized by Yogi Napier MD on 09/29/2024 9:23 AM 4 c BIOPSY FDA Accredited Performing Facility: [facility] [place] - Mammography [address], [facility] [address] us Jorge Rebeka DO IMG BI PROCEDURES Final Result * US BREAST/AXILLA RIGHT (09/29/2024 9:24 AM EST) Anatomical Region Laterality Modality Radiographic Marina ging 09/29/2024 9:24 AM EST Narrative 09/29/2024 9:23 AM EST THIS EXAM WAS PERFORMED AT [facility] 1995 [id number], [id number], [id number] EXAM: MAMM DIAGNOSTIC BILATERAL W CAD, US [...] on 09/29/2024 9:23 AM 4 c BIOPSY Procedure Note Radiology, Radiologist, - 09/29/2024 THIS EXAM WAS PERFORMED AT [facility] 1995 [id number], [id number], [id number] EXAM: MAMM DIAGNOSTIC BILATERAL W CAD, US AXILLA (BREAST) RT LIMITED, USBREAST LT LIMITED, 09/29/2024 8:09 AM CLINICAL INDICATIONS: Phyllodes tumor of breast; Other specified disordersof breast, COMPARISON: None TECHNIQUE: Bilateral digital tomosynthesis MLO and CC views of the breastswere obtained, with creation of synthetic 2D views. Computer aideddetection was utilized. In addition, targeted sonography of the leftbreast in the area of mammographic abnormality and in the right axilla inthe area of lump performed. FINDINGS: The breasts are heterogeneously dense, which may obscure small masses. At the 6:00 position left breast, there is a 1.5 cm rounded nodule seen onmammogram. Targeted sonography of this demonstrates a 1.5 cmcircumscribed heterogeneous mass with mild peripheral color flowvascularity. In the right axilla, corresponding to the palpable abnormality, there is anormal-sized lymph node with cortical thickness 2.4 mm. In addition, in the right axilla, there is a 5 mm hypoechoic lesion inthe skin with some adjacent color flow vascularity, likely a sebaceouscyst. There are no other suspicious masses, calcifications, or areas ofarchitectural distortion. IMPRESSION: * Left breast mass is suspicious for malignancy. Ultrasound-guidedbiopsy recommended. I have discussed this with the patient at time ofexam. * Right axilla sebaceous cyst. Recommend correlation with clinicalfindings. BI-RADS: BI-RADS 4 - Suspicious RECOMMENDATION: Biopsy is recommended. Given personal elevated risk ofmalignancy (see below), MRI may be considered for supplemental screening.This is recommended to be performed at alternating 6 month intervals withscreening mammography. RISK ASSESSMENT: TC Lifetime risk: 23.5%. The patient's reported personal and family medical history was usedcalculate their Tyrer-Cuzick lifetime risk of malignancy. Scores less than20% are not considered high risk per ACR guidelines and patient shouldcontinue with the above recommendation. Patient was given the results before leaving the department. Finalized by Yogi Napier MD on 09/29/2024 9:23 AM 4 c BIOPSY us Jorge Rebeka DO IMG XR PROCEDURES Final Result * Left breast US limited (09/29/2024 9:24 AM EST) Anatomical Region Laterality Modality Breast Left Ultrasound 09/29/2024 9:24 AM EST Narrative 09/29/2024 9:23 AM EST THIS EXAM WAS PERFORMED AT [facility] 1995 [id number], [id number], [id number] EXAM: MAMM DIAGNOSTIC BILATERAL W CAD, US [...] on 09/29/2024 9:23 AM 4 c BIOPSY Procedure Note Radiology, Radiologist, - 09/29/2024 THIS EXAM WAS PERFORMED AT [facility] 1995 [id number], [id number], [id number] EXAM: MAMM DIAGNOSTIC BILATERAL W CAD, US AXILLA (BREAST) RT LIMITED, USBREAST LT LIMITED, 09/29/2024 8:09 AM CLINICAL INDICATIONS: Phyllodes tumor of breast; Other specified disordersof breast, COMPARISON: None TECHNIQUE: Bilateral digital tomosynthesis MLO and CC views of the breastswere obtained, with creation of synthetic 2D views. Computer aideddetection was utilized. In addition, targeted sonography of the leftbreast in the area of mammographic abnormality and in the right axilla inthe area of lump performed. FINDINGS: The breasts are heterogeneously dense, which may obscure small masses. At the 6:00 position left breast, there is a 1.5 cm rounded nodule seen onmammogram. Targeted sonography of this demonstrates a 1.5 cmcircumscribed heterogeneous mass with mild peripheral color flowvascularity. In the right axilla, corresponding to the palpable abnormality, there is anormal-sized lymph node with cortical thickness 2.4 mm. In addition, in the right axilla, there is a 5 mm hypoechoic lesion inthe skin with some adjacent color flow vascularity, likely a sebaceouscyst. There are no other suspicious masses, calcifications, or areas ofarchitectural distortion. IMPRESSION: * Left breast mass is suspicious for malignancy. Ultrasound-guidedbiopsy recommended. I have discussed this with the patient at time ofexam. * Right axilla sebaceous cyst. Recommend correlation with clinicalfindings. BI-RADS: BI-RADS 4 - Suspicious RECOMMENDATION: Biopsy is recommended. Given personal elevated risk ofmalignancy (see below), MRI may be considered for supplemental screening.This is recommended to be performed at alternating 6 month intervals withscreening mammography. RISK ASSESSMENT: TC Lifetime risk: 23.5%. The patient's reported personal and family medical history was usedcalculate their Tyrer-Cuzick lifetime risk of malignancy. Scores less than20% are not considered high risk per ACR guidelines and patient shouldcontinue with the above recommendation. Patient was given the results before leaving the department. Finalized by Yogi Napier MD on 09/29/2024 9:23 AM 4 c BIOPSY us Jorge Rebekajenna BANGURA IMG US PROCEDURES Final Result documented in this encounter Visit Diagnoses Not on filedocumented in this encounter Care Teams Environmental Sustainability Manager Relationship Specialty Start Date End Date Indy Gilbert NP [facility] [place] [address] PCP - General Family Medicine 10/27/23 documented as of this encounter
--- OUTSIDE RECORDS SUMMARY | 2025-03-21 14:59 | XMS_ITS | Encounter Summary ---
Author Organization [facility] Address [address] [place] [address] Care Team Providers Care Key Account Coordinator Name Role Phone NessaIndy christian HIGHWAY CONSTRUCTION INSPECTOR Primary Care Provider Encounter Details Date Type Department Care Team (Late Contact Info) Description 11/11/2023 Clinisync Result Encounter [facility] External Department Unsolicited Jorge Staley DO [address] [place] [address] Social History Tobacco Use Types Packs/Day Years [...] Office Visit [facility] [address] [place] [phone] Jose Harden DO [address] [place] [address] 11/09/2025 9:00 AM EDT Office Visit WILLIAM JARQUIN [address] [place] [address] Mirela Preston PA [address] [facility] [place] [address] 03/20/2026 2:00 PM EDT Office Visit [facility] [place] [facility] [address] [place] [address] Candice Marvin MD [address] [place] [address] documented as of this encounter Procedures Procedure Name Priority Date/Time Associated Diagnosis Comments US PELVIS TRANSVAGINAL 11/11/2023 2:59 PM EDT [facility] PREG QUANT HCG Routine 11/11/2023 2: 38 PM EDT [facility] PROTHROMBIN TIME INR W/O COUM Routine 11/11/2023 2:38 PM EDT MLR HEMOGLOBIN A1C Routine 11/11/2023 2: 38 PM EDT [facility] APTT Routine 11/11/2023 2:38 PM EDT ALL THYROID STIM HORMONE Routine 11/11/2023 2:38 PM EDT documented in this encounter Results * US PELVIS TRANSVAGINAL (11/11/2023 2:59 PM EDT) Anatomical Region Laterality Modality Other 11/11/2023 2:59 PM EDT Narrative 11/11/2023 3:01 PM EDT The [address] [address] Ultrasound Report Signed Patient: MARGOTH WEEMS MR#: [id number] : 1995 Acct:[id number] Age/Sex: 27 / F ADM Date: 11/11/23 Loc: US Attending Dr: Jorge Staley D.O. Ordering Physician: Jorge Staley D.O. Date of Service: 11/11/23 Procedure(s): US pelvis transvaginal Accession Number(s): [id number] cc: Jorge Staley D.O.; Physician,Non-Staff Laine The [address] [address] Patient Name: MARGOTH WEEMS MRN: [id number] date: 1995 Sex: F Assigned Patient Location: US Current Patient Location: US Accession/Order Number: [id number] Exam Date: 11/11/2023 14:06 Report Date: 11/11/2023 14:59 At the request of: JORGE STALEY Procedure: US pelvis transvaginal EXAMINATION: US pelvis transvaginal HISTORY: menorrhagia with regular cycle N92.0 COMPARISON: No relevant comparison available. FINDINGS: The uterus is normal in size, contour and echotexture measuring 8.2 x 5.3 x 4.2 cm. No focal myometrial mass. The endometrium measures 9.1 mm, normal. The right ovary measures 4.5 x 3.0 x 3.2 cm. Normal color Doppler flow in the ovary. Areas of anechoic echogenicity the largest measuring 2.7 x 2.3 x 2.7 cm, simple cyst. The left ovary measures 3.3 x 2.7 x 2.3 cm. Normal subcentimeter follicles. Normal color Doppler flow in the ovary No free fluid US/US pelvis transvaginal IMPRESSION: 2.7 cm right ovarian simple cyst Electronically authenticated by: GLENNA IVY Date: 11/11/2023 14:59 Dictated By: Glenna Ivy M.D. Signed By: 11/11/23 1501 DD/ 1459 TD/TT: Junior Bookkeeper: Procedure Note Radiology, Radiologist, - 11/11/[address] [address] Ultrasound Report Signed Patient: MARGOTH WEEMS MMR#: [id number] : 1995Acct:[id number] Age/Sex: 27 / FADM Date: 11/11/23 Loc: US Attending Dr: Jorge Staley D.O. Ordering Physician: Jorge Staley D.O. Date of Service: 11/11/23 Procedure(s): US pelvis transvaginal Accession Number(s): [id number] cc: Jorge Staley D.O.; Physician,Non-Staff [place] [id number] Patient Name: MARGOTH WEEMS MRN: [employer]:[id number] date: 1995 Sex: F Assigned Patient Location: US Current Patient Location: US Accession/Order Number: [id number] Exam Date: 11/11/2023 14:06 Report Date: 11/11/2023 14:59 At the request of: JORGE STALEY Procedure: US pelvis transvaginal EXAMINATION: US pelvis transvaginal HISTORY: menorrhagia with regular cycle N92.0 COMPARISON: No relevant comparison available. FINDINGS: The uterus is normal in size, contour and echotexture measuring 8.2 x 5.3x 4.2 cm. No focal myometrial mass. The endometrium measures 9.1 mm, normal. The right ovary measures 4.5 x 3.0 x 3.2 cm. Normal color Doppler flow inthe ovary. Areas of anechoic echogenicity the largest measuring 2.7 x 2.3 x2.7 cm, simple cyst. The left ovary measures 3.3 x 2.7 x 2.3 cm. Normal subcentimeterfollicles. Normal color Doppler flow in the ovary No free fluid US/US pelvis transvaginal IMPRESSION: 2.7 cm right ovarian simple cyst Electronically authenticated by: GLENNA IVY Date: 11/11/2023 14:59 Dictated By: Glenna Ivy M.D. Signed By:11/11/23 5059 DD/ 9303 TD/TT: Junior Bookkeeper: us Jorge Staley DO [facility] Final Result * [facility] PREG QUANT HCG (11/11/2023 2:38 PM EDT) HCG QUANTITATIVE <1 mIU/mL TBH Comment: 5-50 0.2-1 WEEK 50-500 1-2 WEEKS 100-5,000 2-3 WEEKS 500-10,000 3-4 WEEKS 1,000-50,000 4-5 WEEKS 10,000-100,000 5-6 WEEKS 15,000-200,000 6-8 WEEKS 10,000-100,000 2-3 MONTHS 11/11/2023 2:38 PM EDT 11/11/2023 2:49 PM EDT Narrative [facility] - 11/11/2023 4:19 PM EDT Jorge Rebeka DO [facility] Final Result Performing Organization Address City/[facility]/ZIP Co de Phone Number [facility] * ALL THYROID STIM HORMONE (11/11/2023 2:38 PM EDT) Pathologist [facility] THYROID STIMULATING HORMONE 1.361 0.358 - 3.740 uIU/mL TB 11/11/2023 2:38 PM EDT 11/11/2023 2:49 PM EDT Narrative [facility] - 11/11/2023 4:19 PM EDT [facility] Rebeka DO [facility] Final Result Performing Organization Address [facility]/ZIP Co de Phone Number [facility] * [facility] APTT (11/11/2023 2:38 PM EDT) Pathologist [facility] PARTIAL THROMBOPLASTIN TIME 30.5 22.3 - 36.2 sec TB 11/11/2023 2:38 PM EDT 11/11/2023 2:49 PM EDT Narrative [facility] - 11/11/2023 3:18 PM EDT Jorge Rebeka DO [facility] Final Result Performing Organization Address City/[facility]/ZIP Co de Phone Number [facility] * [facility] PROTHROMBIN TIME INR W/O COUM (11/11/2023 2:38 PM EDT) Pathologist [facility] PROTHROMBIN TIME 10.0 9.0 - 11.6 sec TB TBH INR 0.94 TBH Comment: DESIRED INR: 2.0-3.0 CONDITIONS NOT LISTED BELOW 2.5-3.5 FOR PROSTHETIC HEART VALVE REPLACEMENT 2.5-3.5 RECURRENT THROMBOSIS 11/11/2023 2:38 PM EDT 11/11/2023 2:49 PM EDT Narrative [facility] - 11/11/2023 3:18 PM EDT [employer] Rebeka DO [facility] Final Result [facility] * MLR HEMOGLOBIN A1C (11/11/2023 2:38 PM EDT) Pathologist [facility] GLYCOHEMOGLOBIN A1C 5.2 4.5 - 6.2 % TB Comment: ADA RECOMMENDED LIMIT 4.0 - 6.0 ADA THERAPEUTIC TARGET < 7.0 ACTION SUGGESTED > 7.0 ESTIMATED AVERAGE GLUCOSE 103 mg/dL TB 11/11/2023 2:38 PM EDT 11/11/2023 2:49 PM EDT Narrative [facility] - 11/11/2023 3:14 PM EDT Jorge Rebeka DO [facility] Final Result [facility] documented in this encounter Visit Diagnoses Not on filedocumented in this encounter Care Teams Key Account Coordinator Relationship Specialty Start Date End Date Indy Gilbert NP [address] [place], [place] [id number] PCP - General Family Medicine 10/27/23 documented as of this encounter
--- OUTSIDE RECORDS SUMMARY | 2025-03-21 14:59 | XMS_ITS | Clinical Summary ---
Author Organization [employer] Address [id number] [address] [place] [address] Care Team Providers Care Mailroom Messenger Name Role Phone Indy Gilbert Primary Care Provid er Allergies Active Allergy Reactions Criticality Noted Date Comments Amoxicillin Itching,Rash,Shortne ss Of Breath High 10/29/2023 Fd And C Red No.40 Anaphylaxis,Itching, Sw elling High 10/29/2023 Other Reaction(s): hives Medications ascorbic acid, vitamin C, (VITAMIN C) 1000 mg tablet Take 1 tablet (1,000 mg total) by mouth in the morning. Active magnesium glycinate 100 mg magnesium capsule Take 100 mg by mouth in the morning. Active busPIRone (BUSPAR) 10 mg tablet Take 1 tablet (10 mg total) by mouth in the morning and at bedtime. Active cholecalciferol , vitamin D3, (VITAMIN D3) 5,000 units capsule Take 1 capsule (5,000 Units total) by mouth in the morning. Active ferrous sulfate 325 (65 FE) mg EC tablet Take 1 tablet (325 mg total) by mouth daily with breakfast. Active metFORMIN (GLUCOPHAGE) 500 mg tablet Take 1 tablet (500 mg total) by mouth daily with breakfast. Active omega-3 acid ethyl esters (LOVAZA) 1 gram capsule Take 1 capsule (1 g total) by mouth in the morning and 1 capsule (1 g total) before bedtime. Active phentermine (ADIPEX-P) 37.5 mg tablet Take 1 tablet (37.5 mg total) by mouth every morning before breakfast. Active Active Problems No known active problems Family History Medical History Relation Name Comments No Known Problems Father Breast cancer Maternal Aunt Depression Mother Goiter Mother Hypertension Mother Ovarian cancer Mother Endometrial cancer Neg Hx Relation Name Status Comments Father Alive Maternal Aunt Mother Alive Social History Tobacco Use Types Packs/Day Years Used Date Smoking Tobacco: Never Smokeless Tobacco: Never Tobacco Cessation:Counseling Given: Not Answered Alcohol Use Standard Drinks/Week Comments Not Currently 0 (1 standard drink = 0.6 oz pur e alcohol) Hunger Screening Answer Date Recorded Within the past 12 months we worried whether our food would run out before we got money to buy more. Never True 10/13/2024 Within the past 12 months th e food we bought just didn't last and we didn't have money to get more. Never True 10/13/2024 Comments Unknown Sex and Gender Information Value Date Recorded Sex Assigned at Not on file Legal Sex Female 7:23 AM EDT Gender Identity Not on file Sexual Orientation Not on file Last Filed Vital Signs Vital Sign Reading Time Taken Comments Blood Pressure 148/94 10/13/2024 9:38 AM EDT Pulse 119 10/13/2024 9:38 AM EDT Temperature - - Respiratory Rate - - Oxygen Saturation - - Inhaled Oxygen Concentration - - Weight 97.7 kg (215 lb 6.4 oz) 10/13/2024 9:38 A M EDT Height 160 cm (5' 3 ) 10/13/2024 9:38 AM EDT Body Mass Index 38.16 10/13/2024 9:38 AM EDT Plan of Treatment Health Maintenance Due Date Last Done Comments Depression Screening 2005 Adult BMI Follow Up Plan 12/26/2011 Influenza Vaccine 04/04/2025 Adult BMI Screening 10/13/2025 10/13/2024 Tobacco Screening 10/13/2025 10/13/2024 Pap Smear 11/04/2027 11/03/2024 DTaP,Tdap and Td Vaccines (2 - Td or Tdap) 03/24/2031 03/24/2021 Medical Devices Not on file Insurance [employer] Care Teams Mailroom Messenger Relationship Specialty Start Date End Date Indy Gilbert APRN-NP [address] [place] [address] PCP - General Nurse Practitioner 12/23/22
--- OUTSIDE RECORDS SUMMARY | 2025-03-21 14:59 | XMS_ITS | Encounter Summary ---
Author Organization [facility] Address [address] [place] [address] Care Team Providers Care Personal Financial Advisor Name Role Phone Migdalia Gilbertfer George OPEN PIT QUARRY SUPERVISOR Primary Care Provider Encounter Details Date Type Department Care Team (Late Contact Info) Description 10/13/2024 Abstract [facility] [address] [place] [address] Magno Staley DO [address] [facility] [place] [address] Social History Tobacco Use Types Packs/Day Years [...] Office Visit [facility] [address] [place] [phone] Jose Harden DO [address] [place] [address] 11/09/2025 9:00 AM EDT Office Visit [facility] J[facility] [address] [facility] [place] [phone] Mirela Preston PA [address] [facility] [place] [address] 03/20/2026 2:00 PM EDT Office Visit [facility] [address] [place] [address] Candice Marvin MD [address] [place] [address] documented as of this encounter Visit Diagnoses Not on filedocumented in this encounter Care Teams Personal Financial Advisor Relationship Specialty Start Date End Date Indy Gilbert NP [address] [facility] [place] [address] [place] [address] PCP - General Family Medicine 10/27/23 documented as of this encounter
--- OUTSIDE RECORDS SUMMARY | 2025-03-21 14:59 | XMS_ITS | Encounter Summary ---
Author Organization [facility] Address [address] [place] [address] Care Team Providers Care Terrazzo Polisher Name Role Phone Migdalia Gilbertfer George DIVERSITY SPECIALIST Primary Care Provider Encounter Details Date Type Department Care Team (Late Contact Info) Description 10/15/2024 Abstract [facility] [address] [facility] [place] [address] Magno Staley DO [address] [facility] [place] [address] Social History Tobacco Use Types Packs/Day Years [...] Office Visit [facility] [address] [place] [phone] Jose Harden DO [address] [place] [address] 11/09/2025 9:00 AM EDT Office Visit [facility] JARQUIN [address] [place] [phone] Mirela Preston PA [address] [facility] [place] [address] 03/20/2026 2:00 PM EDT Office Visit [facility] [address] [place] [address] Candice Marvin MD [address] [place] [address] documented as of this encounter Visit Diagnoses Not on filedocumented in this encounter Care Teams Terrazzo Polisher Relationship Specialty Start Date End Date Indy Gilbert NP [address] [facility] [place] [address] [place] [address] PCP - General Family Medicine 10/27/23 documented as of this encounter
[2025-03-21 15:47] LABS: Free T3 2.37 pg/mL (2.18-3.98); Thyroid Stimulating Hormone 0.956 uIU/mL (0.358-3.740)
--- OUTSIDE RECORDS SUMMARY | 2025-03-21 16:41 | XMS_ITS | CCD ---
Author Organization [facility] ion [facility] Care Team Providers Care It Service Continuity Supervisor Name Role Phone Rowdy Dennison Unavailable Unavailable Rowdy Dennison Unavailable Unavailable KRISH GO Admitting Unavailable KRISH GO Attending Unavailable RENETTA SHOOK Consulting Unavailable GLENNA ALONZO V Consulting Unavailable KRISH GO Consulting Unavailable INDY GILBERT Admitting Unavailab INDY Briones Attending Unavailab INDY Briones Consulting Unavailab Indy Briones Unavailable [phone] Jeramy Fuchs Unavailable Ailyn Harry Unavailable Lili Downing Unavailable Yessenia Gross Unavailable Indy Gilbert NP Primary Care Provider Ofelia DUEÑAS-Indy CELAYA Primary Care [facility] er MAGNO STALEY Referring Unavailable LORIRBACHEINDY Malhotra Primary Care Unavailable MAGNO STALEY Referring Unavailable LORIRBACHER, INDY Primary Care Unavailable MAGNO STALEY Referring Unavailable ROHRBACHER, INDY Primary Care Unavailable Laila Nichole Referring Unavailable LORIRBACHEINDY Malhotra Primary Care Unavailable LINDSEY PEARL Attending Unavailable INDY GILBERT Referring Unavailable LORIRBACHERINDY Primary Care Unavailable Rohrbacher LEANA-UNIVERSITY LIBRARIANIndy Primary Care [facility] er INDY GILBERT Referring Unavailable LORIRBACHEINDY Malhotra Primary Care Unavailable Rohrbacher Indy DUEÑAS Primary Care Provider Indy Gilbert APRN Attending Provider Magno Staley DO Attending Provider Indy Gilbert APRN Primary Care Provider Ofelia DUEÑAS, Indy Attending Provider Jose Mcrae DO Attending Provider [phone] MAGNO STALEY Attending Unavailable REBEKA, MAGNO Attending Unavailable TIERNEY BASS Attending Unavailable THOR, JOSE Schuster Attending Unavailable THOR, JOSE Schuster Attending Unavailable REBEKA, MAGNO Attending Unavailable REBEKA, MAGNO Attending Unavailable REBEKA, MAGNO Attending Unavailable REBEKA, MAGNO Attending Unavailable REBEKA, MAGNO Attending Unavailable MIRELA PRESTON Attending Unavailable Thor, Jose Admitting Unavailable Thor, Jose Attending Unavailable Allergies Allergy Classification Reported Allergen(s) Allergy Type Date of Onset Reaction(s) Facility (20 sources) Contrast media; Translations: [red dye] Propensity to adverse reactions 1 lip swelling, Swelling of Lip/Tongue/Thro at, lip swelling [facility] (20 sources) Amoxicillin; Translations: [AMOXICILLIN] Drug Allergy 4 Itching, Rash, Shortness of breath [facility] (20 sources) Cinnamon Preparation Drug Allergy 4 Anaphylaxis [facility] (20 sources) Red Dye #40 (Allura Red) Allergy to substance 4 Itching, Swelling [facility] (4 sources) Fd And C Red No.40; Translations: [FD AND C RED NO.40] Propensity to adverse reactions to drug 4 Anaphylaxis, Itching, Swelling [facility] (1 source) Amoxicillin Drug Allergy 5 [facility] Repository Medications Current Medications Medication Drug Class(es) Dates Sig (Normalized) Sig (Original) amoxicillin 500 mg oral capsule (11 sources) Penicillin-class Antibacterial Start: 11-04-2021 take 1 [...] days December, Active calcium ascorbate 500 mg ora l tablet (3 sources) Start: 12-07-2024 take 1 tablet by shakira th once daily cholecalciferol 0.025 mg ora l capsule (20 sources) Vitamin D Start: 12-07-2024 take 1 capsule by mo uth once daily Cholecalciferol (Vitamin D) 125 MCG (5000 UT) [...] 1 tablet by mouth daily 28 tablet 11 06/14/2024 Active escitalopram 5 mg oral tablet (1 source) Serotonin Reuptake Inhibitor Start: 10-25-2021 take 1 tablet by mouth every twenty-four hours Escitalopram Oxalate 5 MG 1 tablet Orally Once a day for 30 day(s) Oct, Active 21 day ethinyl estradiol 0.569312 mg/hr / etonogestrel 0.005 mg/hr vaginal system (17 sources) Progestin, Estrogen Start: 12-07-2024 Start: 11-03-2024 End: 11-03-2025 etonogestrel-ethinyl estradi ol (Nuvaring) 0.12-0.015 MG/24HR vaginal ring Indications: control [...] Jan, Active take 1 tablet by shakira th once daily as needed Norgestimate-Eth Estradiol 0.25-35 [...] cycle ferrous sulfate 134 mg oral tablet (20 sources) Start: 12-07-2024 take 1 tablet by mouth once daily ferrous sulfate 325 (65 Fe) MG EC tablet Take 325 mg by mouth in the morning and 325 mg at noon and 325 mg in the evening. Take with meals. Do not crush, chew, or split. Active fluticasone propionate 0.05 mg/actuat metered dose nasal spray (5 sources) Corticosteroid Start: 10-06-2023 Start: 08-12-2023 take 1 spray(s) nasa l route once daily Fluticasone Propionate 50 MCG/ACT 1 spray in each nostril Nasally Once a day for 30 days Aug, Active hydrocortisone 10 mg/ml / neomycin 3.5 mg/ml / polymyxin b 74319 unt/ml otic suspension (1 source) Aminoglycoside Antibacterial, Polymyxin-class Antibacterial, Corticosteroid Start: 11-04-2021 Yoffajsm-Rgimretal-ON 3.5-88155-1 3 drops right ear Three times a day for 7 days Nov, Active Magnesium (20 sources) Magnesium 100 MG capsule Active magnesium citrate 100 mg oral tablet (3 sources) Start: 12-07-2024 take 1 capsule by mouth once daily magnesium glycinate 100 mg magnesium capsule (2 sources) take 1 capsule by mouth in the morning magnesium glycinate 100 mg magnesium capsule Take 100 mg by mouth in the morning. Active metFORMIN hydrochloride 500 mg oral tablet (20 sources) Biguanide Start: 06-14-2024 End: 06-14-2025 take 1 tablet by mouth at mealtime metFORMIN (Glucophage) 500 MG tablet Indications: Encounter for weight management Take 1 tablet (500 mg) by mouth in the morning. Take with meals. 30 tablet 06/14/2024 06/14/2025 Active nystatin 786328 unt/ml topical cream (4 sources) Polyene Antifungal Start: 05-28-2024 omega-3 acid ethyl esters (retirement) 1000 mg oral capsule (20 sources) take 1 capsule by mouth in the morning omega-3 acid ethyl esters (Lovaza) 1 g capsule Take 1 g by mouth in the morning and 1 g before bedtime. Active [place]-3 Fatty Acids 500 mg capsule (3 sources) Start: 12-07-2024 take 1 capsule by mouth once daily Start: 12-07-2024 take 1 capsule by mo [facility] once daily [place]-3 Fatty Acids 500 mg capsule Active 500 MG PO Daily December 07, 2024 12:00am Complies with drug therapy Start: 12-07-2024 take 1 capsule by [facility] once daily [place]-3 Fatty Acids 500 mg capsule Active 500 MG PO Daily December 07, 2024 12:00am ondansetron 4 mg disintegrat ing oral tablet (6 sources) Serotonin-3 Receptor Antagonist Start: 07-25-2021 Start: 01-10-2021 End: 03-25-2021 take 1 tablet by mouth every six hours as needed for nausea Ondansetron Hcl (Zofran) 4 mg Tablet Discontinued 4 MG PO Q6H as needed for nausea January 10, 2021 12:00am March 25, 2021 12:14pm phentermine hydrochloride 37.5 mg oral tablet (20 sources) Sympathomimetic Amine Anorectic Start: 07-15-2024 End: 03-20-2025 take 1 tablet by mouth before mealtime phentermine (Adipex-P) 37.5 MG tablet Indications: Encounter for weight management Take 1 tablet (37.5 mg) by mouth in the morning. Take before meals. 90 tablet 12/20/2024 Active SLYND 4 mg (28) tablet (2 sources) Start: 09-09-2024 End: 12-02-2024 take 1 tablet by mouth in the morning SLYND 4 mg (28) tablet Take 1 tablet by mouth in the morning. 09/09/2024 12/02/2024 Active Tylenol Extra Strength 500 MG (2 sources) zinc gluconate 30 mg oral tablet (2 sources) take 1 tablet by mouth once daily zinc 30 MG tablet Take 30 mg by mouth Daily Active Completed/Discontinued Medications Medication Drug Class(es) Dates Sig (Normalized) Sig (Original) acetaminophen 500 mg oral tablet (4 sources) Start: 03-24-2021 End: 07-09-2021 take 2 [...] Discontinued docusate sodium 100 mg oral capsule (4 sources) Start: 03-24-2021 End: 07-09-2021 take 1 capsule by mouth once daily at bedtime Docusate Sodium (Colace) 100 mg capsule Discontinued 100 MG PO Daily at bedtime 30 March 24, 2021 12:00am July 09, 2021 5:32pm drospirenone 4 mg oral tablet (7 sources) Progestin Start: 09-09-2024 End: 12-20-2024 take 1 tablet by mouth once daily Drospirenone (Slynd) 4 MG tablet Indications: control counseling Take 1 tablet by mouth Daily 84 tablet 3 09/09/2024 12/20/2024 Discontinued (Therapy completed) ibuprofen 600 mg oral tablet (6 sources) Nonsteroidal Anti-inflammatory Drug Start: 03-24-2021 End: 07-09-2021 take 1 tablet by mouth every six hours Ibuprofen 600 mg Tablet Discontinued 600 MG PO Q6H 60 March 24, 2021 12:00am July 09, 2021 5:32pm labetalol hydrochloride 200 mg oral tablet (18 sources) beta-Adrenergic Rissa Start: 07-09-2021 End: 10-06-2023 [...] tablet Discontinued 200 MG PO Twice daily 60 March 25, 2021 12:00am July 09, 2021 [...] Once Daily for 90 day(s) Active levonorgestrel 0.325899 mg/hr intrauterine system (10 sources) Progestin, Progestin-containing Intrauterine Device Start: 04-01-2024 End: 03-31-2029 Levonorgestrel intrauterine device 52 mg meclizine hydrochloride 25 mg oral tablet (3 sources) Antiemetic Start: 06-21-2024 End: 12-07-2024 take 1 tablet by mouth twice daily as needed Meclizine 25 mg tablet Discontinued 25 MG PO Twice daily as needed for motion sickness 60 June 21, 2024 1:00am December 07, 2024 8:15am Vit 86-Dejp-Tweyl-Dha ( + Dha) 28 mg iron- 975 mcg-200 mg Combo Pack (4 sources) Start: 01-10-2021 End: 07-09-2021 Vit 09-Nuvb-Qkgvh-Dha ( + Dha) 28 mg iron- 975 mcg-200 mg Combo Pack Discontinued 1 PO January 10, 2021 12:00am July 09, 2021 5:32pm traMADol hydrochloride 50 mg oral tablet (4 sources) Opioid Agonist Start: 08-27-2021 End: 10-06-2023 take 0.5-1 tablets by mouth every six hours as needed for pain Tramadol (Ultram) 50 mg tablet Discontinued 50 MG PO Q6H as needed for pain 30 August 27, 2021 1:00am October 06, 2023 2:41pm 1/2 - 1 tab po q 6 hours prn pain Turmeric extract (6 sources) End: 06-14-2024 Turmeric (QC Tumeric Complex) 500 MG capsule 06/14/2024 Discontinued Turmeric (QC Elyse dontrell Complex) 500 MG capsule Active Problems Active Problems Problem Classification Problem Date Documented Da te Episodic/Chronic Cancer; other and unspecified primary (1 source) History of benign phyllodes neoplasm of breast; Translations: [Personal history of other benign neoplasm] 10-13-2024 Episodic Immunizations and screening for infectious disease (11 sources) Contact with and (suspected) exposure to other viral communicable diseases; Translations: [Contact with and (suspected) exposure to other viral communicable diseases] Onset: 08-08-2021 Resolved: 11-04-2021 Episodic Mood disorders (8 sources) Moderate major depression, single episode; Translations: [Major depressive disorder, single episode, moderate] Chronic Neoplasms of unspecified nature or uncertain behavior [...] W/O DX HTN] Onset: 05-19-2020 Episodic Other nutritional; endocrine; and metabolic disorders (11 sources) Obesity caused by energy imbalance; Translations: [Other obesity due to excess calories] Onset: 02-19-2025 Resolved: 02-19-2025 02-19-2025 Chronic Other nutritional; endocrine; and metabolic disorders (1 source) Weight increased; Translations: [Abnormal weight gain] 08-12-2024 Episodic Other screening for suspected conditions (not mental disorders or infectious disease) (20 sources) Encounter for screening for lipoid disorders; Translations: [Encounter for screening for other metabolic disorders] Onset: 05-23-2020 Resolved: 02-19-2025 07-16-2023 Episodic Comment on above: Problem List [...] right ear] Onset: 08-03-2019 Resolved: 11-04-2021 Episodic Residual codes; unclassified (1 source) Localized edema [...] of malignant neoplasm of ovary] 10-13-2024 Episodic Thyroid disorders (20 sources) Thyroid nodule; Translations: [Nontoxic single thyroid nodule] Onset: 02-19-2025 Resolved: 02-19-2025 Chronic Thyroid disorders (2 sources) Thyroid dysfunction; Translations: [Disorder of thyroid, unspecified] 02-22-2025 Episodic Unclassified (2 sources) R79.89 - Other specified abnormal findings of blood chemistry Unclassified (1 source) E04.1 - Nontoxic single thyroid nodule Past or Other Problems Problem Classification Problem Date Documented Date Episodic/Chronic Abdominal pain (20 sources) Lower abdominal pain, unspecified; Translations: [Pain in female pelvis] Onset: 07-26-2021 Resolved: 02-19-2025 Episodic Anxiety disorders (19 sources) Anxiety; Translations: [Anxiety disorder, unspecified] Onset: 02-19-2025 Resolved: 02-19-2025 Chronic Biliary tract disease (20 sources) Cholecystitis, unspecified; Translations: [Cholelithiasis without obstruction] Onset: 07-26-2021 Resolved: 02-19-2025 Episodic Comment on above: Problem List clean-u p per request of Phys. EHR Cmte Contraceptive and procreative management (20 sources) Encounter for initial prescription of contraceptive pills; Translations: [Patient encounter status] Onset: 03-22-2024 Episodic Essential hypertension (20 sources) Essential hypertension; Translations: [Essential (primary) hypertension] Onset: 06-05-2021 Resolved: 02-19-2025 Chronic Headache; including migraine (20 sources) Migraine; Translations: [Other migraine, not intractable, without status migrainosus] Onset: 02-19-2025 Resolved: 02-19-2025 Chronic Hypertension complicating ; childbirth and the puerperium (13 sources) -induced hypertension; Translations: [Gestational [-induced] hypertension without significant proteinuria, unspecified trimester] Onset: 02-19-2025 Resolved: 02-19-2025 07-16-2023 Episodic Comment on above: Problem List clean-u p per request of Phys. EHR Cmte Mycoses (14 sources) Candidal intertrigo; Translations: [Candidiasis of skin and nail] Onset: 02-19-2025 Resolved: 02-19-2025 05-28-2024 Episodic Nausea and vomiting (1 source) Nausea with vomiting, unspecified Onset: 07-26-2021 Resolved: 07-26-2021 Episodic Nonmalignant breast conditions (9 sources) Fibrocystic change of right breast; Translations: [Diffuse cystic mastopathy of right breast] Onset: 02-19-2025 Resolved: 02-19-2025 02-19-2025 Chronic Nonmalignant breast conditions (20 sources) Inflammatory disorder of breast; Translations: [Mastitis without abscess] Onset: 06-14-2024 06-14-2024 Episodic Other connective tissue disease (9 sources) Poor posture; Translations: [Abnormal posture] Onset: 02-19-2025 Resolved: 02-19-2025 02-19-2025 Episodic Other ear and sense organ disorders (1 source) Unspecified acute noninfective otitis externa, right ear Onset: 11-04-2021 Resolved: 11-04-2021 Episodic Other injuries and conditions due to external causes (12 sources) Motion sickness; Translations: [Motion sickness, initial encounter] Onset: 02-19-2025 Resolved: 02-19-2025 06-21-2024 Episodic Other liver diseases (1 source) Abnormal levels of other serum enzymes Onset: 07-26-2021 Resolved: 07-26-2021 Episodic Other lower respiratory disease (3 sources) Cough; Translations: [COUGH] Onset: 07-31-2019 Episodic Other nutritional; endocrine; and metabolic disorders (16 sources) Body mass index 30+ - obesity; Translations: [Body mass index (BMI) 39.0-39.9, adult] Onset: 02-19-2025 Resolved: 02-19-2025 12-07-2024 Chronic Other nutritional; endocrine; and metabolic disorders (13 sources) Hyperbilirubinemia; Translations: [Other disorders of bilirubin metabolism] Onset: 02-19-2025 Resolved: 02-19-2025 07-16-2023 Chronic Comment on above: Problem List clean-u p per request of Phys. EHR Cmte Other and delivery including normal (13 sources) Mother delivered; Translations: [Encounter for full-term uncomplicated delivery] Onset: 02-19-2025 Resolved: 02-19-2025 07-16-2023 Episodic Comment on above: Problem List clean-u p [facility] Pancreatic disorders (not diabetes) (13 sources) Gallstone pancreatitis; Translations: [Biliary acute pancreatitis without necrosis or infection] Onset: 02-19-2025 Resolved: 02-19-2025 07-16-2023 Episodic Comment on above: Problem List clean-u p per request of Phys. [facility] Residual codes; unclassified (13 sources) Family history of disorder; Translations: [Family history of other endocrine, nutritional and metabolic diseases] Onset: 02-19-2025 Resolved: 02-19-2025 01-25-2025 Episodic Urinary tract infections (13 sources) Urinary tract infectious disease; Translations: [Urinary tract infection, site not specified] Onset: 02-19-2025 Resolved: 02-19-2025 07-16-2023 Episodic Comment on above: Problem List clean-u p [facility] (1 source) COVID-19 Onset: 08-08-2021 Resolved: 08-08-2021 Results Test Name Value Interpretation Reference Range Facility [facility] 03-07-2025 L ---- Specimen: [id number] Received: 03/08/25 Status: EDI Enrique Num: [id number] Spec Type: Cytology Subm Dr: Jose Mcrae,DO Tissues: A FNA SLIDES NOPATH (LT THYROID NODULE) Procedures: Cyto Int and Re, PAPSTN/10 Age/ Patient Sex Location Account Attending Physician DankSiva Amaya [place] [id number] Jose Mcrae DO SPEC NUM: [id number] RECD: 03/08/25-1312 STATUS: EDI ENRIQUE NUM: [id number] [place]: 03/07/25-[address] [facility] [address]: Jose Mcrae DO ENTERED: 03/08/25-[address] [facility] [address]: RAZIA TYPE: Cytology DEPT: CNG ENTERED BY: [id number] RECV BY: [id number] ORDERED: Cyto Int and Re, PAPSTN/10 ORDERED: Cyto Int and Re, PAPSTN/10 Pathological Diagnosis Left thyroid nodule, fine needle aspiration (ThinPrep and Smears Slides): - Suboptimal for evaluation due to scant cellularity. - Few benign appearance follicular cells and abundant watery colloid consistent with colloid nodule ([place] Category: II) - Negative for malignant cells. Clinical Information Left Thyroid Nodule Gross Description Received fixed in Cytolyt is 30 ml colorless clear fixed fluid for cytology said to have been obtained as Left Thyrod Nodule. ThinPrep preparations are prepared for microscopic examination. Also received are 9 smeared slides for pap and a Veracyte vial stored at -20 for microscopic examination. (YC/nh) Microscopic Description Microscopic examination is performed. Specimen: [id number] Received: 03/08/25 Status: EDI Enrique Num: [id number] Spec Type: Cytology Subm Dr: Jose Mcrae DO Tissues: A FNA SLIDES NOPATH (LT THYROID NODULE) Procedures: Cyto Int and Re, PAPSTN/10 Patient: Siva Weems Amaya [id number] (Continued) Specimen: [id number] Received: 03/08/25 (Continued) Signed (signature on file) Akshat Cox MD 03/09/25 0838 Specimen: [id number] Received: 03/08/25 Status: EDI Enrique Num: [id number] Spec Type: Cytology Subm Dr: Jose Mcrae DO Tissues: A FNA SLIDES NOPATH (LT THYROID NODULE) Procedures: Cyto Int and Re, PAPSTN/10 Patient: Siva Weems [id number] (Continued) Specimen: [id number] Received: 03/08/25 (Continued) CPT Codes 96329, 09782 Specimen: [id number] Received: 03/08/25 Status: EDI Enrique Num: [id number] Spec Type: Cytology Subm Dr: Jose Mcrae,DO Tissues: A FNA SLIDES NOPATH (LT THYROID NODULE) Procedures: Cyto Int and Re, PAPSTN/10 Patient: Siva Weems [id number] (Continued) Signed (signature on file) Akshat Cox MD 03/09/25 0838 Normal [facility] Serum or plasma thyroperoxid ase antibody assay (units/volume)Ordered By: Jose Mcrae on 02-22-2025 TPO Ab Qn 9 [IU]/mL 0-34 [facility] Comment on above: Performed at: [address] [id number] Director: Augustine Layton PhD, Phone: [phone] ALL THYROXINE (T4)on 025 T4 [Mass/Vol] 11.6 ug/dL 4.80 - 13.90 ug/dL [facility] Basophils Auto (Bld) [#/Vol] on 01-17-2025 Basophils (Bld) [#/Vol] 0.0 10 3/uL 0.0-0.1 [facility] Basophils/100 WBC Auto (Bld) on 01-17-2025 Basophils/100 WBC (Bld) 0.4 % 0.2-2.0 [facility] Eosinophils/100 WBC Auto (Bl d)on 01-17-2025 Eosinophils/100 WBC (Bld) 4.7 % 0.9-7.0 [facility] Erythrocyte distribution wid th Auto (RBC) [Ratio]on 01-17-2025 Erythrocyte distribution width (RBC) [Ratio] 13.2 % 11.0-15.0 [facility] Glucose mean value [Mass/vol ume] in Blood Estimated from glycated hemoglobinon 01-17-2025 Average glucose Estimated from glycated hemoglobin (Bld) [Mass/Vol] 105 mg/dL [facility] Hematocrit Auto (Bld) [Volum e fraction]on 01-17-2025 Hematocrit (Bld) [Volume fraction] 40.6 % 36.0-48.0 [facility] Hemoglobin A1c percentageon 01-17-2025 HbA1c (Bld) [Mass fraction] 5.3 % 4.5-6.2 [facility] Comment on above: ADA RECOMMENDED LIMI T 4.0 - 6.0ADA THERAPEUTIC TARGET < 7.0ACTION SUGGESTED> 7.0 Hemoglobin [Mass/volume] in Bloodon 01-17-2025 Hemoglobin (Bld) [Mass/Vol] 13.8 g/dL 12.0-16.0 [facility] Laboratory - Chemistry and C hemistry - challengeon 01-17-2025 Free T4 [Mass/Vol] 1.07 ng/dL 0.76-1.46 [facility] TSH Qn 0.925 m[IU]/L 0.358-3.74 0 [facility] T4 [Mass/Vol] 11.60 ug/dL 4.80-13.90 [facility] - Hematology and Cell countson 01-17-2025 Immature granulocytes/100 WBC (Bld) 0.3 % 0.0-0.5 [facility] Leukocytes [#/volume] correc delfino for nucleated erythrocytes in Blood by Automated counon 01-17-2025 WBC corrected for nucl RBC Auto (Bld) [#/Vol] 11.4 10 3/uL High 4.0-11.0 [facility] Lymphocytes Auto (Bld) [#/Vo l]on 01-17-2025 Lymphocytes (Bld) [#/Vol] 1.7 10 3/uL 1.2-3.8 [facility] Lymphocytes/100 WBC Auto (Bl d)on 01-17-2025 Lymphocytes/100 WBC (Bld) 15.2 % Low 20.5-60.0 [facility] MCH Auto (RBC) [Entitic mass ]on 01-17-2025 MCH (RBC) [Entitic mass] 27.9 pg 26.7-34.0 [facility] MCHC Auto (RBC) [Mass/Vol]on 01-17-2025 MCHC (RBC) [Mass/Vol] 34.0 g/dL 29.9-35.2 [facility] MCV Auto (RBC) [Entitic vol] on 01-17-2025 MCV (RBC) [Entitic vol] 82.2 fL 81.0-99.0 [facility] Monocytes Auto (Bld) [#/Vol] on 01-17-2025 Monocytes (Bld) [#/Vol] 0.5 10 3/uL 0.3-0.8 [facility] Monocytes/100 WBC Auto (Bld) on 01-17-2025 Monocytes/100 WBC (Bld) 4.1 % 1.7-12.0 [facility] Neutrophils Auto (Bld) [#/Vo l]on 01-17-2025 Neutrophils (Bld) [#/Vol] 8.6 10 3/uL High 1.4-6.5 [facility] Neutrophils/100 WBC Auto (Bl d)on 01-17-2025 Neutrophils/100 WBC (Bld) 75.3 % High 43.0-75.0 [facility] No Panel InformationOrdered By: Magno Staley on 01-17-2025 Dehydroepiandrosterone (DHEA) 243 ng/dL 31-701 [facility] Comment on above: This test was develo ped and its performance characteristicsdetermined by [facility]. It has not been cleared orapproved by the Food and Drug Administration.Performed at: [address] [id number] Director: Mandi Herrera MD, Phone: [phone] Dehydroepiandrosterone Sulfate 136.0 ug/dL 84.8-378.0 [facility] Follicle Stimulating Hormone 2.6 mIU/mL . [facility] Comment on above: Adult Female Range F ollicular phase 3.5 - 12.5 Ovulation phase 4.7 - 21.5 Luteal phase 1.7 - 7.7 Postmenopausal 25.8 - 134.8 Total Triiodothyronine 208 ng/dL Abnormal 71-180 [place] Comment on above: Performed at: - [place] [address] [id number] Director: Augustine Layton PhD, Phone: [phone] No Panel Informationon 01-17 Eosinophils # (Auto) 0.5 10 3/uL 0.0-0.7 [facility] Free Triiodothyronine 3.04 pg/mL 2.18-3.98 [facility] Human Chorionic Gonadotropin, Quant <1 mIU/mL [facility] Comment on above: 5-50 0.2-1 SXZN13-09 0 1-2 DWZJL411-1,000 2-3 PMDFS396-02,000 3-4 WEEKS1,000-50,000 4-5 WEEKS10,000-100,000 5-6 WEEKS15,000-200,000 6-8 WEEKS10,000-100,000 2-3 MONTHS Immature Granulocyte # (Auto) 0.03 10 3/uL 0.00-0.03 [facility] Platelet mean volume Auto (B ld) [Entitic vol]on 01-17-2025 Platelet mean volume (Bld) [Entitic vol] 8.9 fL Low 9.5-13.5 [facility] Platelets Auto (Bld) [#/Vol] on 01-17-2025 Platelets (Bld) [#/Vol] 363 10 3/uL 150-450 [facility] RBC Auto (Bld) [#/Vol]on RBC (Bld) [#/Vol] 4.94 10 6/uL 4.20-5.40 [facility] Serum or plasma lutropin symone surement (units/volume)Ordered By: Magno Rebeka on 01-17-2025 Lutropin Qn 4.4 m[IU]/mL . [facility] Comment on above: Adult Female Range F ollicular phase 2.4 - 12.6 Ovulation phase 14.0 - 95.6 Luteal phase 1.0 - 11.4 Postmenopausal 7.7 - 58.5Performed at: [facility] [address] [id number] Director: Augustine Layton PhD, Phone: [phone] [place] [address] Ultrasound Report Signed Patient: SIVA WEEMS MR#: [id number] : 1995 Acct:[id number] Age/Sex: 29 / F ADM Date: 01/17/25 Loc: US Attending Dr: Magno Staley D.O. Ordering Physician: Magno Staley D.O. Date of Service: 01/17/25 Procedure(s): US pelvis transvaginal Accession Number(s): [id number] cc: Magno Staley D.O.; INDY GILBERT [place] [id number] Patient Name: SIVA WEEMS MRN: TBH:[id number] date: 1995 Sex: F Assigned Patient Location: US Current Patient Location: US Accession/Order Number: [id number] Exam Date: 01/17/2025 07:59 Report Date: 01/17/2025 08:02 At the request of: MAGNO STALEY DO Procedure: US pelvis transvaginal ULTRASOUND [...] Elias M.D. 01/17/2025 8:02 AM Dictation Location: [place] [address] Electronically authenticated by: [id number] Y Date: 01/17/2025 08:02 Dictated By: Rachel Elias M.D. Signed By: 01/17/25804 DD/ 1 TD/TT: Driver Medic: [facility] Radiology, Radiologi MD tosha - 01/17/2025 [place] [address] Ultrasound Report Signed Patient: SIVA WEEMS MR#: [id number] : 1995 Acct:[id number] Age/Sex: 29 / F ADM Date: 01/17/25 Loc: US Attending Dr: Magno Staley D.O. Ordering Physician: Magno Staley D.O. Date of Service: 01/17/25 Procedure(s): US pelvis transvaginal Accession Number(s): [id number] cc: Magno Staley D.O.; INDY GILBERT [address] [address] Patient Name: SIVA WEEMS MRN: [facility]:[id number] date: 1995 Sex: F Assigned Patient Location: Current Patient Location: US Accession/Order Number: [id number] Exam Date: 01/17/2025 07:59 Report Date: 01/17/2025 08:02 At the request of: MAGNO STALEY DO Procedure: US pelvis transvaginal ULTRASOUND [...] Elias M.D. 01/17/2025 8:02 AM Dictation Location: [place] [address] Electronically authenticated by: [id number] Y Date: 01/17/2025 08:02 Dictated By: Rachel Elias M.D. Signed By: 01/17/25804 DD/ 1 TD/TT: Driver Medic: [facility] Radiology Study observation (narrative) [facility] US PELVIS TRANSVAGINALOrdere d By: Radiologist Radiology on 01-17-2025 [facility] Work Phone: CBC WITH AUTO DIFFERENTIALon 11-29-2024 BASOPHILS ABSOLUTE COUNT (10*3/UL) BY AUTOMATED COUNT 0.0 10*3/uL Normal [facility] Comment on above: Performed By: #### C BCA #### [facility] ([facility]) [address] [place] [address] VIR BASOPHILS RELATIVE PERCENT BY AUTOMATED COUNT 0.4 % Normal [facility] Comment on above: Performed By: #### C BCA #### [facility] ([facility]) [address] [place] [address] VIR CELLAVISION DIFFERENTIAL TYPE AUTOMATED DIFFERENTIAL Normal [facility] Comment on above: Performed By: #### C BCA #### [facility] ([facility]) [address] [place] [address] VIR Eosinophils (Bld) [#/Vol] 0.5 10*3/uL Normal [facility] Comment on above: Performed By: #### C BCA #### [facility] ([facility] [address] [place] [address] VIR EOSINOPHILS RELATIVE PERCENT BY AUTOMATED COUNT 4.9 % Normal [facility] Comment on above: Performed By: #### C BCA #### [facility] ([facility]) [address] [place] [address] VIR Erythrocyte distribution width (RBC) [Ratio] 14.3 % Normal 11.5-[address] [facility] Comment on above: Performed By: #### C BCA #### [facility] ([facility] [address] [place] [address] VIR Hematocrit (Bld) [Volume fraction] 41.7 % Normal 35-[address] [facility] Comment on above: Performed By: #### C BCA #### [facility] ([facility]) [address] [place] [address] VIR Hemoglobin (Bld) [Mass/Vol] 13.9 g/dL Normal 11.7-15.[address] [facility] Comment on above: Performed By: #### C BCA #### [facility] [address] [place] [address] VIR LYMPHOCYTES ABSOLUTE COUNT (10*3/UL) BY AUTOMATED COUNT 2.0 10*3/uL Normal [facility] Comment on above: Performed By: #### C BCA #### [facility]) [address] [place] [address] VIR LYMPHOCYTES RELATIVE PERCENT BY AUTOMATED COUNT 21.5 % Normal [facility] Comment on above: Performed By: #### C BCA #### [facility]) [address] [place] [address] VIR MCH (RBC) [Entitic mass] 27.4 pg Normal 27-[address] [facility] Comment on above: Performed By: #### C BCA #### [facility] ([facility]) [address] [place] [address] VIR MCHC (RBC) [Mass/Vol] 33.2 g/dL Normal 32-36 [facility] Comment on above: Performed By: #### C BCA #### [facility] [address] [place] [address] VIR MCV (RBC) [Entitic vol] 83 fL Normal 80-100 [facility] Comment on above: Performed By: #### C BCA #### [facility]) [address] [place] [address] VIR MONOCYTES ABSOLUTE COUNT (10*3/UL) BY AUTOMATED COUNT 0.4 10*3/uL Normal [facility] Comment on above: Performed By: #### C BCA #### [facility] [address] [place] [address] VIR MONOCYTES RELATIVE PERCENT BY AUTOMATED COUNT 4.4 % Normal [facility] Comment on above: Performed By: #### C BCA #### [facility]) [address] [place] [address] VIR NEUTROPHILS ABSOLUTE COUNT BY AUTOMATED COUNT 6.3 10*3/uL Normal [facility] Comment on above: Performed By: #### C BCA #### [facility] [address] [place] [address] VIR NEUTROPHILS RELATIVE PERCENT BY AUTOMATED COUNT 68.8 % Normal [facility] Comment on above: Performed By: #### C BCA #### [facility]) [address] [place] [address] VIR Platelet mean volume (Bld) [Entitic vol] 7.5 fL Normal 7-[address] [facility] Comment on above: Performed By: #### C BCA #### [facility]) [address] [place] [address] VIR Platelets (Bld) [#/Vol] 292 10*3/uL Normal 150-[address] [facility] Comment on above: Performed By: #### C BCA #### [facility]) [address] [place] [address] VIR RBC COUNT 5.05 X10E12/L Normal 3.8-5.[address] [facility] Comment on above: Performed By: #### C BCA #### [facility]) [address] [place] [address] VIR WBC (Bld) [#/Vol] 9.2 10*3/uL Normal 4-11 [facility] Comment on above: Performed By: #### C BCA #### [facility]) [address] [place] [address] VIR COMPREHENSIVE METABOLIC PANE Humza 11-29-2024 Albumin [Mass/Vol] 4.5 g/dL Normal 3.2-5.3 [facility] Comment on above: Performed By: #### C MP #### [facility]) [address] [place] [address] VIR ALP [Catalytic activity/Vol] 80 U/L Normal 39-[address] [facility] Comment on above: Performed By: #### C MP #### [facility] [address] [place] [address] VIR ALT [Catalytic activity/Vol] 17 U/L Normal <=[address] [facility] Comment on above: Performed By: #### C MP #### [facility]) [address] [place] [address] VIR Anion gap [Moles/Vol] 10 mmol/L Normal 5-15 [facility] Comment on above: Performed By: #### C MP #### [facility] [address] [place] [address] VIR AST [Catalytic activity/Vol] 22 U/L Normal <=[address] [facility] Comment on above: Performed By: #### C MP #### [facility] [address] [place] [address] VIR Bilirubin [Mass/Vol] 0.4 mg/dL Normal 0.3-1.2 [facility] Comment on above: Performed By: #### C MP #### [facility] [address] [place] [address] VIR Calcium [Mass/Vol] 9.4 mg/dL Normal 8.5-10.5 [facility] Comment on above: Performed By: #### C MP #### [facility] [address] [place] [address] VIR Chloride [Moles/Vol] 103 mmol/L Normal 98-109 [facility] Comment on above: Performed By: #### C MP #### [facility] [address] [place] [address] VIR CO2 [Moles/Vol] 25 mmol/L Normal 22-[address] [facility] Comment on above: Performed By: #### C MP #### [facility] [address] [place] [address] VIR Creatinine [Mass/Vol] 0.78 mg/dL Normal 0.40-1.00 [facility] Comment on above: Result Comment: METH OD TRACEABLE TO IDMS STANDARD Performed By: #### C MP #### [facility] [address] [place] [address] VIR EGFR (CKD-EPI) NON-RACE DEPENDENT >^90 Normal >=[address] [facility] Comment on above: Result Comment: Repo rted eGFR is based on the CKD-EPI 2020 equation that does not use a race coefficient. Performed By: #### C MP #### [facility] [address] [place] [address] VIR Glucose [Mass/Vol] 83 mg/dL Normal 65-99 [facility] Comment on above: Performed By: #### C MP #### [facility] [address] [place] [address] VIR Potassium [Moles/Vol] 4.6 mmol/L Normal 3.5-5.0 [facility] Comment on above: Performed By: #### C MP #### [facility] [address] [place] [address] VIR Protein [Mass/Vol] 8.1 g/dL High 6.0-8.0 [facility] Comment on above: Performed By: #### C MP #### [facility] [address] [place] [address] VIR Sodium [Moles/Vol] 138 mmol/L Normal 134-146 [facility] Comment on above: Performed By: #### C MP #### [facility] [address] [place] [address] VIR Urea nitrogen [Mass/Vol] 15 mg/dL Normal 5-[address] [facility] Comment on above: Performed By: #### C MP #### [facility] [address] [place] [address] VIR LIPID PROFILEon 11-29-2024 Cholesterol [Mass/Vol] 144 mg/dL Low 150-200 [facility] Comment on above: Performed By: #### L IPR #### [facility] [address] [place] [address] VIR Cholesterol in HDL [Mass/Vol] 43 mg/dL Normal >[address] [facility] Comment on above: Result Comment: HDL <40 mg/dL - High Risk HDL > or = 40mg/dL- Desirable HDL >60 mg/dL - Negative Risk Performed By: #### L IPR #### [facility] [address] [place] [address] VIR Cholesterol in LDL [Mass/Vol] 74 mg/dL Normal <[address] [facility] Comment on above: Result Comment: LDL <100 mg/dL - Desirable LDL >160 mg/dL - High Risk Performed By: #### L IPR #### [facility] [address] [place] [address] VIR CHOLESTEROL:HDL 3.3 Normal 1.0-5.[address] [facility] Comment on above: Performed By: #### L IPR #### [facility] [address] [place] [address] VIR Triglyceride [Mass/Vol] 133 mg/dL Normal 27-150 [facility] Comment on above: Performed By: #### L IPR #### [facility] [address] [place] [address] VIR VERY LOW LIPOPROTEIN 27 mg/dL Normal 0-30 [facility] Comment on above: Performed By: #### L IPR #### [facility] [address] [place] [address] VIR IGP,APTIMA HPV,AGE GDLNon AGE GDLN ACOG TESTING Note . [facility] Comment on above: TESTS RESULT FLAG UN ITS REF RANGE LAB Clinician Provided Cytology Information Source.............Cervix;Endocervix No. of containers..01 ThinPrep Vial Age Algo ACOG Shannon... 30-65 FLAG LEGEND: L-Low Normal,H-High Normal,LL-Alert Low,HH-Alert High <-Panic Low,>-Panic High,A-Abnormal,AA-Critical Abnormal Performed at: 01 =[address] [address] Debbie Capps MD, HPV APTIMA Negative Negative [facility] Comment on above: This nucleic acid am plification test detects fourteen high- risk HPV types (16,18,31,33,35,39,45,51,52,56,58,59,66,68) without differentiation. Performed at: =[address] [id number] Sanitation Worker [employer]: Debbie Capps MD, Phone: [phone] Performed at: [address] [id number] Sanitation Worker [employer]: Debbie Capps MD, Phone: [phone] IGP, APTIMA HPV, RFX 16/18,45 Note . [facility] Comment on above: TESTS RESULT FLAG UN ITS REF RANGE LAB DIAGNOSIS: 02 NEGATIVE FOR INTRAEPITHELIAL LESION OR MALIGNANCY. CELLULAR CHANGES ASSOCIATED WITH INFLAMMATION ARE PRESENT. THIS SPECIMEN WAS RESCREENED PART OF OUR PIANO REGULATOR INSPECTOR PROGRAM. Specimen adequacy: 02 Satisfactory for evaluation. Endocervical and/or squamous metaplastic cells (endocervical component) are present. Performed by: 03 Ana Luisa Basilio, Bank Clerk ([facility]) QC reviewed by: 02 Erin Shah, Supervisory Bank Clerk ([facility]) . 02 Note: Note 02 The Pap [...] High,A-Abnormal,AA-Critical Abnormal Performed at: [address] [facility] [address] [address] Debbie Capps MD, 03 KWCYT [facility] [place] [facility] [address] [place] [address] Cecil Scott MD, BRUSH-SPATULA CERVIX ENDOCERVIX [facility] [place] POST BX DIAG UNI LTon 0 [...] MD on 10/07/2024 3:01 PM 100 Normal [facility] US BX BREAST US GUID [...] MD on 10/07/2024 3:01 PM 100 Normal [facility] Surgical Pathologyon 025 Surgical Pathology Normal [facility] Comment on above: Result Comment: [facility] [address] [place] [address] Surgical Pathology Consultation Patient Name:SIVA WEEMS:1995 (Age: 28)Gender:FTaken:10/04/2024Reported:10/07/2024Physician(s):Magno Staley DO ([phone])Copy To:MD OFELIA Lam JENNIABRA[facility] ARROWHEAD CAMPUSAccession #:[id number]. Rec. #:[id number]: #[id number] Final Pathologic Diagnosis Left breast,6 o'clock, 3 cmfn, mass, biopsy: BENIGN: Fibroadenoma Report Electronically Signed Out yomik/10/07/2024Melonie Lundberg MD Interpretation performed at [facility], [address] [place] [address], License number: [id number]. Clinical History Biopsy procedure: Ultrasound; Target: Mass; [...] minutes Time in formalin before processin hours (2,ns,Z00-0556, m8.1) sxw/10/04/2024NSK Specimen(s) Received Left breast Fee Codes(s): 1; 38203 [facility] DIAGNOSTIC BILATERAL W CADon 09-29-2024 [facility] DIAGNOSTIC BILATERAL W CAD [facility] DIAGNOSTIC BILATERAL W CAD SIVA WEEMS 1995 [id number], [id number], [id number] EXAM: [facility] DIAGNOSTIC BILATERAL W CAD, US [...] 09/29/2024 9:23 AM 4 c BIOPSY Normal [facility] US AXILLA (BREAST) RT LIMITE Don 09-29-2024 US AXILLA (BREAST) RT LIMITED US AXILLA (BREAST) RT LIMITED [facility] 1995 [id number], [id number], [id number] EXAM: [facility] DIAGNOSTIC BILATERAL W CAD, US [...] 09/29/2024 9:23 AM 4 c BIOPSY Normal [facility] US BREAST LT LIMITEDon 09-29 US BREAST LT LIMITED [facility] LT [facility]ITE [facility] 1995 [id number], [id number], [id number] EXAM: [facility]AM[facility] DIAGNOSTIC BILATERAL W CAD, US [...] 09/29/2024 9:23 AM 4 c BIOPSY Normal [facility] HCG ( test) Ql (U)o n 04-01-2024 Interpretation and review of laboratory results Normal [facility] Preg Test, Ur Negative [facility] IUD Insertionon 04-01-2024 Najma De Leon LPN [...] will follow up after next period: yes [facility] COVID/FLU/RSV RT-PCRon 07-21 SARS-CoV-2 (COVID-19) RNA IZZY+probe Ql (Unsp spec) Negative [employer] Other COVID/FLU/RSV RT-PCR Negative [facility] [employer] Other COVID/FLU RT-PCRon SARS-CoV-2 (COVID-19) RNA IZZY+probe Ql (Unsp spec) Negative [facility] [employer] Other COVID/FLU RT-PCR Negative [facility] [employer] Other COVID Quick Testingon 2021 Result Negative [facility] [employer] Other Quick Fluon 11-04-2021 FLUAV Ab CF (S) [Titer] Negative [facility] [employer] Other FLUBV Ab CF (S) [Titer] Negative [facility] [employer] Other COVID Quick Testingon 2021 Result Positive [facility] [employer] Other Coding Summaryon 07-30-2021 Coding Summary [employer]Base 64 DcsegsmhXGe2aZq+PGhlYWQ+ YU1UKLJwS43cuODenT2WZ4kP QQ4ARCPCSZRKDM9XEA1yuPI3 SYqlA8ZbezDz OmnqqKTtNA30FBc3HBV8rOam RQporA7sgLAwQ3n1EoEsRL90 hQ68DPoyLGQwPaY1TdAbyjbq bWFy I2kiGoWgtZGrAfc+PHRhYmxl IHdpZHRoPScxMDAlJyBzdHls TG9pVl7vZCCpGXHweCdtrGUa OiBj z4igPRZzBHtjEV6lvXytG0Cl mOE5BIHhm0j0Za80fKA+PHRk VMB0nPzdYTbyg633GvQhq4bi IDM3 lWXsLQcsXPS4U42rp8D4WHWr DUWiEZV5dQE1wY3rlGgbgldy O4OksYGwLnE1XIA0pARikM9b bGln ibgnlN3zLiv+L33UQP0KLFJO AB3MQjo4P6RdJppgcFP+PC90 IZStBG97wURamCQcy1xfrAw3 JzEw UDHtWCZ2eIhkUWwkz4YmDGVg Y00vaYVvr4Q8DHVptWsjvFOo RcSnfMQ3qU6vLBewyjdey9bm dzsn Ohsqh6ntqx14oM44Y83fIQue OYFaYXK7NITiGFSimAhkna4k qR8oIv8+QPqrn1fzu3trwMm4 IjIw ZRLutkCzhAvkWBZ6d5ZeAr77 O9OrjTdqx7WhHxa9ls75tMNi t3N2eDC3YYhxJHTyjE4ySPos ZnQ6 NMMrVgDfbO40nNObHAasJx2h cTgrfSybBE0cDLAzdenlIXRf xB3iRVAdpVEecPfrAH5fQRFj bjtm p359QcVkHEV6XCHwnGGvF0Vf eX8eHdYnTQLvEAXkE4BjtBPd SHebA445GChcPjY4FYEhlvLc Y2Fs KNJxhRljFqM7n8C1Qy9Qq0Ei byqvIQC0UPrdUZVyChN7GcXs EhU1T8StNap2LRDgjNkaSW3y J3Bh HEJqzjnfelmwxVH6PHTxNJKc fA36kQQtZEnqVh9hb9D7u881 RGZsZODquB75Vu6abJnaKIUf dCBU jJ6ziyefn8shvrosWxFuMULw OGm6MWc8PCAitIesBcUoRBF0 WgU8UJV9aCMzrX6smGesjvyn dG9w Oyc+S60idM2sJNK4YKG4vsbm PXLqzcYiDP83UX61H1GcZpqj dGFibGU+ZFCvauQakPmyGG3l YmFj q3nbd4RvMKueH4XvSTLrADum Jye4LPAhEXQ0gBC9pV4wALVw XGzmn9X0nVW0G2UzfbGtzq2j b2xs JWExYXcqV58kzCXtc0K3NEFb fRR4TVJygDouVkIqhR18Xgc+ LZPxsNjvf8PnStrss9oxe6fh dGg9 GdGsBBKdsdIacNgkHGH3j0Ut Vs63W09wZAvlDTFgRHVnLIUc CUMswHfcld4qjK7hNj9+PGNv bCB3 uOF2pR6qDNVmLhR7PTmkW985 OhTyqAChSjkaz5wde2zrkBp9 MkDjSEDsseWulQveKJZ8c7Kc Lz48 K22yRIiwXJPfTVDoARKzHIAt uEuxlg0rbV6xGn3+XK7rz4dk gm80vA09bYT+AFMbCHJ6kXiq PSdw EKPsgQ0xMCrkCwA7XDIuFgFa kL92bJOeNKcjDs9bqRaylTnj WD3tOLYcchmes693NuOsu2yn IDEw tFArYSbvEQC2V21zk4C4WUUg TVYnECQ2rRZ7kD5mrGujgnav bGVmdDsgdmVydGljYWwtYWxp Z246 IHRvcDsnPlBhdGllbnQgTmFt ZYj2C1GpBvv5CYSlzMzxYN6p aKJlSNzlPr9ioBditSxpYX6u NTBp alfji942EcZsv0lkFHDynHIj GCwrQQK7H76wk3A3IIUmLFGe JVT0jXX8aU9rhPtsmcyhpUIt dDsg yrKdzJhgHRlwDUxwP420MMBy pBkoJuGahrRnURScnKD0NF88 AR80dUXmt7H4hPN3T0OhKRDf bmct lsmsoHF4FVGrKSGdoL62Fq9k fRvsWv1rLTKhEGB5KLVtpIJq J7JddB9cInXnPSGlSHKhJ6Yo eHQt UZezW828ZNkjTlP8SMLylqWa S8OjJXUaiJkvFcR4e5V5Yb4E Y7H9WB26EL93jQIgb4X8hSH0 J3Bh ZYWudpdsaddigXF4HWTkJZLd xR39Cr6jhYpwTd2gQYQmGAX3 FUQvzZSeP4RkbP5uDbTrOMKg MDAw U2WsfOHwIVyjV761TSncZoN4 WREqzjGfR8StIKDsfBuwHjS4 f9C8Ic7YDKw3NY98TX98gNIx c3R5 sEA6N2QeMXMtwhxrftkupGX1 KRCdRMAnaU47Ut5diQnpJq8p UIXdMQL0YMLlfHYoV7SxlW2c OiAj UUYuSNZbD3AhrVDfZWupU450 ATylKiY9XRIwpwQyP8BqJTUe lFgdNfF7l8E2Jr8CLNIhHY86 IFR5 gKP4HG09MS44X7OyKrmquYIp bGU+PHRhYmxlIHdpZHRoPScx BZBzJpOmbYxaXI6lEn0oZDUv LWNv wSfcpINiUjGdw6hqVRUhCFkp NS2waCqmJ0HuhQD1NCEbd3n2 Tz36C76gH7FliAB+PGNvbCB3 aWR0 sY1rKeJkToN7IFqrU916ZgMr oADsHutai2dro6bawJa5QyM0 QJAcdsTqjCzmDXY0m6OjZk78 Y29s IHdpZHRoPSIxNSUiIHZhbGln li7dtH2pOs0+KGEvxEZ4kBS8 lJ2sTnZkInD9JTavL822HtYf cCIv Tdphk4vxm4ayiKu2KxVhDQZb ejCluEhtKFF1u2DbOe91R5Vy zTbue9IbMpq1sc21gUMtp2Q0 bGU9 H0UzJBNkcryyrZYxkJdbAR2g KNXyukclIFSgoZ8yXRCpB6n1 OpFqUfY7BTjyR4AjpaV0HRDu cHQg XQpdIXN6A26rf5T5ITTnPOZw HTT1pKY5iZ3uoEeikpqmbPDa cDbpmbZbfKzrMVodUDrqL982 IHRv cBcuVMMurI5wEKOqeBXawIrm DY4oJZNlvoowMjRYV6mBJhOv MLkTUSsqCMFINIQ1P8MiHwa3 ZCBz pGgrGE2ieZKsIVbwIv7vzWze sJvxTV4fGVEfqnkeKIKmpE0k GZSwtAYenZcmHK6xPACbprpj b250 KzQvMPT2KCPwpYShS3YseY6d PpDqIFWkOFWwG8ShmJRtCWii H191HAjzQiZ2IZSgtyLdB0Ny LWFs eZzpIvH9g5Q9Ng7nJA7lCE3t NVe3XZ15EU95jEQta1H6mNM3 J0JxHZYhrsfjvsblmXB1NXAy MDUw tB16pSSpTFrqNq0qp3V5f099 GLYoOXMljO76Jg1npFqaASIu mOUJmF5cxpbwj4gvqggtQePw MDAw LMj2ONy3EFBlkFbkHnUkKKN4 FpE3IMC3lRTgtL0ysMdamdsk xJ7gGka+AtvpTNObmlC0F9Qx Pjx0 QGVwrKhmLP9haUOhLVuvIx2a dYftuNreJM6wDFKcwdcoZLYo uS8uEAJpgNKmwTtoHM4aKJPr bjtm l799XhPiVZF0JVQkzXTlV8Hx jV0nHfZtPCXwJIRsC3NafHJs WBwgF175VDmhTaG1RCYvmdRd Y2Fs XGFycNdbJgU1p9S2Zw6DYW8K QZF9X5KfPdi0KYObcKioDO0i rMJePHswEt2xyFovyNiyPR6f NTBp vwduODOnsN0aPDEomXQdtFph KZ1vTKPpaufzw915PtWcYMK6 NCKphRLjZ6BvpN2oFjSkOZXy MDAw G6XibJDjPAtrX057XZlbJjI9 SWNtbeBwA4OjLMJbgCiyGeH0 a0Z6Hz4MVNnxfGU+MN21qm83 L3Rh NwgbRgv6PEZzHTI4tBV2xZ9n QKUeNWops8V2tIO8U3GzphLf pc4zu1nxNIPtUJdfY67wfVZc c2U7 DNRhbLR6WGToxPehPgXmsJ80 Oyc+BFWkrRfim9GeKnkzr3an h8wmpMr4JnNmETZcwoPaxRrg PSJ0 m8KzRv58H23lZIwvUWVsJRFt VDRlVSReuLsrjn4ibT1gBp4+ MFNfaXE5wKW5uF5dGeGxBnS9 YWxp Q519WiKncXCyEoyla2ryr9lo lNu8RoKsHOCkmgIuiLnmWPC8 e3CbAu19B8WdoDgvw7StYrm3 cj48 nHBvl4C6oNA8Z6UaTHJhfrup lFWmaOsbVG2uUWQefqolRXSv aQ1zFGBmA8f2SbSnGyH0GAlg O2Zv cdQ2LPUefIOyREQpcURMlL9e byawv9qgckhoUiMtVQHfLDg5 KOi1BTTjrQsdIoTnDZZ3ZuC8 ZXJ0 zRTulD7ahEkwlvggqN8xXdg+ EFc5q4bzyYVhYC7ehBU1WL68 TJ04yBVma1B4wFG9J2PdCZKn bmct epfmePY4TZOmFMDiyY97Ba6e wOzyVp5bEQNaJGQ9JPCtrIHw O2AjhE1dSgRfFDVkWLXsU1Cz eHQt TLslS894SJvxKeO9DHBiiaSx M8MoVOVxwEodOiG7d3S7Ry1P GA58AK04QO99rZExu0H3qZH2 J3Bh MYLlgsfjhfskuEJ9XSRhFLEy mH59Ms4oiVfmZk4jDFMeJEV6 WNNjxGSlJ0FxiU3dZhNyEWHn MDAw W6YztRBcAJjsZ554UDmxYlD4 GOOgkpShO2FrSHXghEqmHbR3 a2U1Lz8RMw74GE62AW13aVUn c3R5 qHB0I1WqZLJaitdrwkopdFZ2 IJSrWFVqsY99Nt3mxClbSa4z TXNzFME8QNNelVAlB6IlaC1i OiAj TYGxAERrZ6LjwPAeLBubY316 KYgiKiP6QDQidmGzS2HhZPEb dJmxAmI9p7S3Vk3OTIynmyp9 L3Rk PjwvdHI+NP07KMKhZA38uTBa tVRua6ezhTv7PiKqVXGdWYD1 pMpxFIncy3MgTYBzY57ldNMe c2U6 IGN (more content not included)... Normal [facility] Provider Orderson 07-30-2021 Provider Orders [id number] TIFF Normal [facility] Hepatic Function Panel Stand charissa 07-26-2021 Albumin [Mass/Vol] 4.4 g/dL Normal 3.5-5.0 [facility] Comment on above: Performed By: #### 1 [id number] #### [facility] (DEFAULT) [address] [place] [id number] Albumin/Globulin [Mass ratio] 1.0 {ratio} Low 1.4-2.6 [facility] Comment on above: Performed By: #### 1 [id number] #### [facility] (DEFAULT) [address] [place] [id number] Alk Phos 301 IU/L High 32-91 [facility] Comment on above: Performed By: #### 1 [id number] #### [facility] (DEFAULT) [address] [place] [address] [id number] ALT [Catalytic activity/Vol] 369.0 U/L High 14.0-54.0 [facility] Comment on above: Performed By: #### 1 [id number] #### [facility] (DEFAULT) [address] [place] [address] [id number] AST [Catalytic activity/Vol] 215 U/L High 15-41 [facility] Comment on above: Performed By: #### 1 [id number] #### [facility] (DEFAULT) [address] [place] [address] 23965 Bili Direct 0.30 mg/dL Normal 0.10-0.50 [facility] Comment on above: Performed By: #### 1 [id number] #### [facility] (DEFAULT) [address] [place] [address] 65016 Bili Indirect 0.8 mg/dL Normal 0.2-0.8 [facility] Comment on above: Performed By: #### 1 [id number] #### [facility] (DEFAULT) [address] [place] [address] 50111 Bili Total 1.1 mg/dL Normal 0.3-1.2 [facility] Comment on above: Performed By: #### 1 [id number] #### [facility] (DEFAULT) [address] [place] [address] 88436 Globulin (S) [Mass/Vol] 4.2 g/dL Normal 1.5-4.3 [facility] Comment on above: Performed By: #### 1 [id number] #### [facility] (DEFAULT) [address] [place] [address] 17629 Protein [Mass/Vol] 8.6 g/dL High 6.5-8.1 [facility] Comment on above: Performed By: #### 1 [id number] #### [facility] (DEFAULT) [address] [place] [address] 91058 CBC AUTO DIFFon 05-19-2020 Basophils (Bld) [#/Vol] 0.1 103/ul Normal 0.0-0.[address] [facility] Comment on above: Performed By: #### C BC #### [facility] [address] [place] [address] Ines Rachel Basophils/100 WBC (Bld) 0.6 % Normal 0.2-2.[address] [facility] Comment on above: Performed By: #### C BC #### [facility] [address] [place] [address] Ines Rachel Eosinophils (Bld) [#/Vol] 0.2 103/ul Normal 0.0-0.7 [facility] Comment on above: Performed By: #### C BC #### [facility] [address] [place] [address] Ines Rachel Eosinophils/100 WBC (Bld) 2.6 % Normal 0.9-7.0 [facility] Comment on above: Performed By: #### C BC #### [facility] [address] [place] [address] Ines Rachel Erythrocyte distribution width (RBC) [Ratio] 12.9 % Normal 11.0-15.0 [facility] Comment on above: Performed By: #### C BC #### [facility] [address] [place] [address] Ines Rachel Hematocrit (Bld) [Volume fraction] 41.3 % Normal 36.0-48.0 [facility] Comment on above: Performed By: #### C BC #### [facility] [address] [place] [address] Ines Rachel Hemoglobin (Bld) [Mass/Vol] 13.8 g/dL Normal 12.0-16.0 [facility] Comment on above: Performed By: #### C BC #### [facility] [address] [place] [address] Ines Rachel IG # 0.02 10e3/ul Normal 0.00-0.03 [facility] Comment on above: Performed By: #### C BC #### [facility] [address] [place] [address] Ines Rachel IG % 0.2 % Normal 0.0-0.5 [facility] Comment on above: Performed By: #### C BC #### [facility] [address] [place], [place] [id number] Ines Rachel Lymphocytes (Bld) [#/Vol] 2.1 103/ul Normal 1.2-3.8 [facility] Comment on above: Performed By: #### C BC #### [facility] [address] [place], [place] [id number] Ines Rachel Lymphocytes/100 WBC (Bld) 24.9 % Normal 20.5-60.0 [facility] Comment on above: Performed By: #### C BC #### [facility] [address] [place], [place] [id number] Ines Munguiaen MANUAL DIFF REQ NO Normal [facility] Comment on above: Performed By: #### C BC #### [facility] [address] [place], [place] [id number] Ines Rachel MCH (RBC) [Entitic mass] 27.6 pg Normal 26.7-34.0 [facility] Comment on above: Performed By: #### C BC #### [facility] [address] [place], [place] [id number] Inesgovind Ramos MCHC (RBC) [Mass/Vol] 33.4 g/dL Normal 29.9-35.2 [facility] Comment on above: Performed By: #### C BC #### [facility] [address] [place], [place] [id number] Inesgovind Munguiaen MCV (RBC) [Entitic vol] 82.6 fL Normal 81.0-99.[address] [facility] Comment on above: Performed By: #### C BC #### [facility] [address] [place], [place] [id number] Ines Rachel Monocytes (Bld) [#/Vol] 0.6 103/ul Normal 0.3-0.[address] [facility] Comment on above: Performed By: #### C BC #### [facility] [address] [place], [place] [id number] Ines Rachel Monocytes/100 WBC (Bld) 6.9 % Normal 1.7-12.[address] [facility] Comment on above: Performed By: #### C BC #### [facility] [address] [place], [place] [id number] Ines Rachel Neutrophils (Bld) [#/Vol] 5.5 103/ul Normal 1.4-6.5 [facility] Comment on above: Performed By: #### C BC #### [facility] [address] [place], [place] [id number] Ines Rachel Neutrophils/100 WBC (Bld) 64.8 % Normal 43.0-75.0 [facility] Comment on above: Performed By: #### C BC #### [facility] [address] [place], [place] [id number] Inesgovind Ramos Platelet mean volume (Bld) [Entitic vol] 8.9 fL Critically low 9.5-13.5 [facility] Comment on above: Performed By: #### C BC #### [facility] [address] [place], [place] [id number] Inesgovind Ramos Platelets (Bld) [#/Vol] 360 103/ul Normal 150-[address] [facility] Comment on above: Performed By: #### C BC #### [facility] [address] [place], [place] [id number] Inesgovind Munguiaen RBC (Bld) [#/Vol] 5.00 106/ul Normal 4.20-5.40 [facility] Comment on above: Performed By: #### C BC #### [facility] [address] [place], [place] [id number] Inesgovind Ramos WBC (Bld) [#/Vol] 8.4 103/ul Normal 4.0-11.0 [facility] Comment on above: Performed By: #### C BC #### [facility] [address] [place], [place] [id number] Ines Ramos LIPID PROFILEon 05-19-2020 CHOL-HDL RATIO NORM SEE BELOW Normal [facility] Comment on above: Result Comment: 3.3 - 4.4 LOW RISK 4.4 - 7.1 AVERAGE RISK 7.1 - 11.0 MODERATE RISK >11.0 HIGH RISK Performed By: #### L IPID, CMP #### [facility] [address] [place], [place] [address] Ines Rachel Cholesterol [Mass/Vol] 170 mg/dL Normal <=200 Th [facility] Comment on above: Performed By: #### L IPID, CMP #### [facility] [address] [place] [address] Ines Rachel Cholesterol in HDL [Mass/Vol] > or = 60 mg/dl - LOW CARDIOVASCULAR RISK <40 mg/dl - HIGH CARDIOVASCULAR RISK Normal [facility] Comment on above: Performed By: #### L IPID, CMP #### [facility] [address] [place] [address] Ines Rachel Cholesterol in HDL [Mass/Vol] 43 mg/dL Normal [facility] Comment on above: Performed By: #### L IPID, CMP #### [facility] [address] [place], [place] [id number] Ines Rachel Cholesterol in LDL [Mass/Vol] 115.0 mg/dL Normal [facility] Comment on above: Performed By: #### L IPID, CMP #### [facility] [address] [place] [address] Ines Rachel Cholesterol in LDL [Mass/Vol] SEE BELOW Normal [facility] Comment on above: Result Comment: <100 mg/dl OPTIMAL 100 - 129 mg/dl NEAR OR ABOVE OPTIMAL 130 - 159 mg/dl BORDERLINE HIGH 160 - 189 mg/dl HIGH >190 mg/dl VERY HIGH Performed By: #### L IPID, CMP #### [facility] [address] [place] [address] Ines Rachel Cholesterol.total/Zonia sterol in HDL [Mass ratio] 4.0 {ratio} Normal [facility] Comment on above: Performed By: #### L IPID, CMP #### [facility] [address] [place] [address] Ines Rachel Triglyceride [Mass/Vol] 60 mg/dL Normal <=150 T [facility] Comment on above: Performed By: #### L IPID, CMP #### [facility] [address] [place] [id number] Ines Rachel VLDL CALC 12.0 mg/dL Normal [facility] Comment on above: Performed By: #### L IPID, CMP #### [facility] [address] [place] [id number] Ines Rachel PROF 14(COMP METB)on 05-19- 020 Albumin [Mass/Vol] 3.7 g/dL Normal 3.5-5.0 [facility] Comment on above: Performed By: #### L IPID, CMP #### [facility] [address] [place], [place] [id number] Ines Rachel Albumin/Globulin [Mass ratio] 0.8 {ratio} Normal [facility] Comment on above: Performed By: #### L IPID, CMP #### [facility] [address] [place] [address] Ines Rachel ALP [Catalytic activity/Vol] 123 U/L Normal 38-126 [facility] Comment on above: Performed By: #### L IPID, CMP #### [facility] [address] [place] [address] Ines Rachel ALT [Catalytic activity/Vol] 30 U/L Normal 9-52 [facility] Comment on above: Performed By: #### L IPID, CMP #### [facility] [address] [place], [place] [id number] Ines Rachel Anion gap [Moles/Vol] 13.3 mmol/L Normal [facility] Comment on above: Performed By: #### L IPID, CMP #### [facility] [address] [place], [place] [id number] Ines Rachel AST [Catalytic activity/Vol] 18 U/L Normal 14-36 [facility] Comment on above: Performed By: #### L IPID, CMP #### [facility] [address] [place], [place] [id number] Ines Rachel Bilirubin Ql (U) 0.4 mg/dL Normal 0.2-1.3 [facility] Comment on above: Performed By: #### L IPID, CMP #### [facility] [address] [place] [id number] Ines Rachel Calcium [Mass/Vol] 9.2 mg/dL Normal 8.4-10.2 [facility] Comment on above: Performed By: #### L IPID, CMP #### [facility] [address] [place] [id number] Ines Rachel Chloride [Moles/Vol] 104 mmol/L Normal 98-107 [facility] Comment on above: Performed By: #### L IPID, CMP #### [facility] [address] [place] [address] Ines Rachel CO2 [Moles/Vol] 27.9 mmol/L Normal 22.0-30.0 [facility] Comment on above: Performed By: #### L IPID, CMP #### [facility] [address] [place] [address] Inse Rachel Creatinine [Mass/Vol] 0.61 mg/dL Normal 0.52-1.04 [facility] Comment on above: Performed By: #### L IPID, CMP #### [facility] [address] [place], [place] [id number] Ines Rachel EGFR-AF NIUEAN >60 Normal >=60 [facility] Comment on above: Performed By: #### L IPID, CMP #### [facility] [address] [place], [place] [id number] Ines Rachel EGFR-NON AF NIUEAN >60 Normal >=60 [facility] Comment on above: Performed By: #### L IPID, CMP #### [facility] [address] [place], [place] [id number] Ines Rachel Globulin (S) [Mass/Vol] 4.4 g/dL Normal [facility] Comment on above: Performed By: #### L IPID, CMP #### [facility] [address] [place], [place] [id number] Ines Rachel Glucose [Mass/Vol] 97 mg/dL Normal 74-106 [facility] Comment on above: Performed By: #### L IPID, CMP #### [facility] [address] [place] [address] Ines Rachel Potassium [Moles/Vol] 4.2 mmol/L Normal 3.4-5.0 [facility] Comment on above: Performed By: #### L IPID, CMP #### [facility] [address] [place] [address] Ines Rachel Protein [Mass/Vol] 8.1 g/dL Normal 6.1-8.2 [facility] Comment on above: Performed By: #### L IPID, CMP #### [facility] [address] [place] [address] Ines Rachel Sodium [Moles/Vol] 141 mmol/L Normal 137-145 [facility] Comment on above: Performed By: #### L IPID, CMP #### [facility] [address] [place] [address] Ines Rachel Urea nitrogen [Mass/Vol] 14.0 mg/dL Normal 7.0-17.0 [facility] Comment on above: Performed By: #### L IPID, CMP #### [facility] [address] [place] [address] Ines Rachel Urea nitrogen/Creatinine [Mass ratio] 23.0 mg/mg Normal [facility] Comment on above: Performed By: #### L IPID, CMP #### [facility] [address] [place] [address] Inesgovind Ramos CULTURE THROATon 07-31-2019 CULTURE THROAT Culture Observations : Normal respiratory kaye. Normal [facility] Comment on above: Performed By: #### S SCRN, THRTCX #### [facility] [address] [place] [address] Ines Rachel INFLUENZA A AND B AGon 07-31 INFLUANEGH SEE BELOW Normal [facility] Comment on above: Result Comment: Nega tive for Flu A protein angiten. Infection due to Flu A cannot be ruled out. Flu A angiten in the sample may be below the detection limit of the test. Performed By: #### I NFLUAB #### [facility] [address] [place] [address] Ines Rachel INFLUBNEGH SEE BELOW Normal [facility] Comment on above: Result Comment: Nega tive for Flu B protein antigen. Infection due to Flu B cannot be ruled out. Flu B antigen in the sample may be below the detection limit of the test. Performed By: #### I NFLUAB #### [facility] [address] [place] [address] Ines Ramos INFLUENZA A AG Negative Normal NEGATIVE SEE COMMENT [facility] Comment on above: Performed By: #### I NFLUAB #### [facility] [address] [place] [address] Ines Ramos INFLUENZA B AG Negative Normal NEGATIVE SEE COMMENT [facility] Comment on above: Performed By: #### I NFLUAB #### [facility] [address] [place] [address] Ines Ramos INTERNAL CONTROLS Within Normal Limits Normal Wi thin Normal Limits [facility] Comment on above: Performed By: #### I NFLUAB #### [facility] [address] [place] [address] Ines Ramos STREPT SCREENon 07-31-2019 STREP SCREEN A Negative Normal NEGATIVE [facility] Comment on above: Performed By: #### S SCRN, THRTCX #### [facility] [address] [place] [address] Ines Ramos XR CHEST 2 Von 07-31-2019 XR CHEST 2 V Patient: SIVA CARRASQUILLO Exam Date: 07/31/2019 : 1995 Gender:F Ordering : DR. KRISH GO . Admission #: [id number] Family : DR RENETTA SHOOK . Order #: [id number] CLICK HERE TO VIEW EXAM RADIOLOGY REPORT [...] Alonzo M.D. on 07/31/2019 at 09:07 Normal [facility] Vital Signs Date Time Vital Sign Value Performing Clinician Facility 03-21-2025 13:42-0400 Body height 160 cm Candice Marvin MD Work Phone: [facility] 03-21-2025 13:42-0400 Body mass index (BMI) [Ratio] 36.49 kg/m2 Candice Marvin MD Work Phone: [facility] 03-21-2025 13:42-0400 Body weight 93.44 kg Candice Marvin MD Work Phone: [facility] 03-21-2025 13:42-0400 Heart rate 111 /min Candice Marvin MD Work Phone: [facility] 03-21-2025 13:42-0400 Respiratory rate 16 /min Candice Marvin MD Work Phone: [facility] 03-21-2025 13:42-0400 SaO2% (BldA) [Mass fraction] 98 % Candice Marvin MD Work Phone: [facility] 03-07-2025 10:42-0400 Body height 160 cm Jose Mcrae DO Work Phone: [facility] 03-07-2025 10:42-0400 Body mass index (BMI) [Ratio] 35.43 kg/m2 Jose Mcrae DO Work Phone: [facility] 03-07-2025 10:42-0400 Body weight 90.72 kg Jose Mcrae DO Work Phone: [facility] 02-22-2025 14:04-0400 Body height 160 cm Jose Mcrae DO Work Phone: [facility] 02-22-2025 14:04-0400 Body mass index (BMI) [Ratio] 35.43 kg/m2 Jose Thor DO Work Phone: [facility] 02-22-2025 14:04-0400 Body weight 90.72 kg Jose Mcrae DO Work Phone: [facility] 01-25-2025 13:23040 Body height 160.02 cm Indy Szymanskigino CONCRETE INSPECTOR Work Phone: [facility] 01-25-2025 13:23-0400 Body mass index (BMI) [Ratio] 36.5 kg/m2 Indy Ofelia DURBINN Work Phone: [facility] 01-25-2025 13:23-0400 Body temperature 98.5 [degF] Indy Szymanskigino DURBINN Work Phone: [facility] 01-25-2025 13:23040 Body weight 93.44 kg Indy Szymanskigino DURBINN Work Phone: [facility] 01-25-2025 13:23-0400 Diastolic blood pressure 70 mm[Hg] Indy Ofelia DURBINN Work Phone: [facility] 01-25-2025 13:23-0400 Heart rate 105 /min Indy Szymanskigino DURBINN Work Phone: [facility] 01-25-2025 13:23-0400 SaO2% (BldA) [Mass fraction] 99 % Indy Szymanskigino DURBINN Work Phone: [facility] 01-25-2025 13:23-0400 Systolic blood pressure 110 mm[Hg] Indy Ofelia DURBINN Work Phone: [facility] 12-20-2024 13:23-0400 Body mass index (BMI) [Ratio] 36.87 kg/m2 Tierney Bass NP Work Phone: [facility] 12-20-2024 13:23-0400 Body weight 94.41 kg Tierney Bass NP Work Phone: [facility] 12-07-2024 08:11-0400 Body height 160.02 cm [facility] 12-07-2024 08:11-0400 Body mass index (BMI) [Ratio] 36.5 kg/m2 [facility] 12-07-2024 08:11-0400 Body temperature 98.8 [degF] [facility] 12-07-2024 08:11-0400 Body weight 93.44 kg [facility] 12-07-2024 08:11-0400 Diastolic blood pressure 82 mm[Hg] [facility] 12-07-2024 08:11-0400 Heart rate 96 /min [facility] 12-07-2024 08:11-0400 SaO2% (BldA) [Mass fraction] 99 % [facility] 12-07-2024 08:11-0400 Systolic blood pressure 124 mm[Hg] [facility] 10-13-2024 09:38-0400 Body height 160 cm Lindsey Pearl DO Work Phone: [facility] 10-13-2024 09:38-0400 Body mass index (BMI) [Ratio] 38.16 kg/m2 Lindsey Pearl DO Work Phone: [facility] 10-13-2024 09:38-0400 Body weight 97.7 kg Lindsey Pearl DO Work Phone: [facility] 10-13-2024 09:38-0400 Diastolic blood pressure 94 mm[Hg] Lindsey Pearl DO Work Phone: [facility] 10-13-2024 09:38-0400 Heart rate 119 /min Lindsey Pearl DO Work Phone: [facility] 10-13-2024 09:38-0400 Systolic blood pressure 148 mm[Hg] Lindsey Pearl DO Work Phone: [facility] 09-09-2024 10:05-0500 Body mass index (BMI) [Ratio] 39.17 kg/m2 Magno Staley DO Work Phone: [facility] 09-09-2024 10:05-0500 Body weight 100.3 kg Magno Rebeka DO Work Phone: [facility] 09-09-2024 10:05-0500 Diastolic blood pressure 70 mm[Hg] Magno Rebeka DO Work Phone: [facility] 09-09-2024 10:05-0500 Systolic blood pressure 120 mm[Hg] Magno Rebeka DO Work Phone: [facility] 08-12-2024 08:44-0500 Body mass index (BMI) [Ratio] 40.39 kg/m2 Mirela Preston PA Work Phone: [facility] 08-12-2024 08:44-0500 Body weight 103.42 kg Mirela Preston PA Work Phone: [facility] 08-12-2024 08:44-0500 Diastolic blood pressure 72 mm[Hg] Mirela Preston PA Work Phone: [facility] 08-12-2024 08:44-0500 Systolic blood pressure 122 mm[Hg] Mirela Preston PA Work Phone: [facility] 07-15-2024 09:30-0500 Body mass index (BMI) [Ratio] 41.77 kg/m2 Magno Rebeka DO Work Phone: [facility] 07-15-2024 09:30-0500 Body weight 106.96 kg Magno Rebeka DO Work Phone: [facility] 07-15-2024 09:30-0500 Diastolic blood pressure 70 mm[Hg] Magno Rebeka DO Work Phone: [facility] 07-15-2024 09:30-0500 Systolic blood pressure 130 mm[Hg] Magno Rebeka DO Work Phone: [facility] 06-14-2024 13:56-0500 Body mass index (BMI) [Ratio] 41.63 kg/m2 Magno Rebeka DO Work Phone: [facility] 06-14-2024 13:56-0500 Body weight 106.59 kg Magno Rebeka DO Work Phone: [facility] 06-14-2024 13:56-0500 Diastolic blood pressure 68 mm[Hg] Magno Rebeka DO Work Phone: [facility] 06-14-2024 13:56-0500 Systolic blood pressure 110 mm[Hg] Magno Rebeka DO Work Phone: [facility] 05-28-2024 08:40-0400 Body height 160.02 cm [facility] 05-28-2024 08:40-0400 Body mass index (BMI) [Ratio] 42.2 kg/m2 [facility] 05-28-2024 08:40-0400 Body temperature 95.3 [degF] [facility] 05-28-2024 08:40-0400 Body weight 108.12 kg [facility] 05-28-2024 08:40-0400 Diastolic blood pressure 74 mm[Hg] [facility] 05-28-2024 08:40-0400 Heart rate 89 /min [facility] 05-28-2024 08:40-0400 SaO2% (BldA) [Mass fraction] 98 % [facility] 05-28-2024 08:40-0400 Systolic blood pressure 122 mm[Hg] [facility] 04-29-2024 08:58-0400 Body mass index (BMI) [Ratio] 41.7 kg/m2 Magno Rebeka DO Work Phone: [facility] 04-29-2024 08:58-0400 Body weight 106.78 kg Magno Rebeka DO Work Phone: [facility] 04-29-2024 08:58-0400 Diastolic blood pressure 74 mm[Hg] Magno Rebeka DO Work Phone: [facility] 04-29-2024 08:58-0400 Systolic blood pressure 116 mm[Hg] Magno Rebeka DO Work Phone: [facility] 04-01-2024 09:48-0400 Body height 160 cm Magno Rebeka DO Work Phone: [facility] 04-01-2024 09:48-0400 Body mass index (BMI) [Ratio] 41.42 kg/m2 Magno Rebeka DO Work Phone: [facility] 04-01-2024 09:48-0400 Body weight 106.05 kg Magno Rebeka DO Work Phone: [facility] 04-01-2024 09:48-0400 Diastolic blood pressure 70 mm[Hg] Magno Rebeka DO Work Phone: [facility] 04-01-2024 09:48-0400 Systolic blood pressure 110 mm[Hg] Magno Rebeka DO Work Phone: [facility] 08-12-2023 13:00-0500 Body height 160.02 cm Indy Gilbert Other [employer] Other 08-12-2023 13:00-0500 Body mass index (BMI) [Ratio] 40.92 kg/m2 Indy Gilbert Other [employer] Other 08-12-2023 13:00-0500 Body weight 104.78 kg Indy Gilbert Other [employer] Other 08-12-2023 13:00-0500 Diastolic blood pressure 84 mm[Hg] Indy Gilbert Other [employer] Other 08-12-2023 13:00-0500 SaO2% (BldA) [Mass fraction] 98 % Indy Gilbert Other [employer] Other 08-12-2023 13:00-0500 Systolic blood pressure 128 mm[Hg] Indy Gilbert Other [employer] Other 07-24-2023 13:00-0500 Body height 160.02 cm Indy Gilbert Other [employer] Other 07-24-2023 13:00-0500 Body mass index (BMI) [Ratio] 40.56 kg/m2 Indy Richardsonr Other [employer] Other 07-24-2023 13:00-0500 Body weight 103.87 kg Indy Richardsonr Other [employer] Other 07-24-2023 13:00-0500 Diastolic blood pressure 84 mm[Hg] Indy Szymanskirheaantoniettar Other [employer] Other 07-24-2023 13:00-0500 SaO2% (BldA) [Mass fraction] 100 % Indy Ofelia Other [employer] Other 07-24-2023 13:00-0500 Systolic blood pressure 130 mm[Hg] Indy Szymanskirheaantoniettar Other [employer] Other 01-22-2023 13:00-0400 Body height 160.02 cm Indy Ofelia Other [employer] Other 01-22-2023 13:00-0400 Body mass index (BMI) [Ratio] 39.32 kg/m2 Indy Szymanskirheaantoniettar Other [employer] Other 01-22-2023 13:00-0400 Body weight 100.7 kg Indy Richardsonr Other [employer] Other 01-22-2023 13:00-0400 Diastolic blood pressure 78 mm[Hg] Indy Richardsonroscoe Other [employer] Other 01-22-2023 13:00-0400 Systolic blood pressure 128 mm[Hg] Indy Gilbert Other [employer] Other 07-21-2022 10:30-0500 Body height 160.02 cm Yessenia Gross Other [employer] Other 07-21-2022 10:30-0500 Body mass index (BMI) [Ratio] 37.2 kg/m2 Yessenia Gross Other [employer] Other 07-21-2022 10:30-0500 Body temperature 97.9 [degF] Yessenia Gross Other [employer] Other 07-21-2022 10:30-0500 Body weight 95.26 kg Yessenia Gross Other [employer] Other 07-21-2022 10:30-0500 Respiratory rate 18 /min Yessenia Gross Other [employer] Other 07-21-2022 10:30-0500 SaO2% (BldA) [Mass fraction] 99 % Yessenia Gross Other [employer] Other 05-19-2022 10:15-0400 Body height 160.02 cm Lili Downing Other [employer] Other 05-19-2022 10:15-0400 Body mass index (BMI) [Ratio] 37.2 kg/m2 Lili Downing Other [employer] Other 05-19-2022 10:15-0400 Body temperature 97.6 [degF] Lili Chang Other [employer] Other 05-19-2022 10:15-0400 Body weight 95.26 kg Lili Chang Other [employer] Other 05-19-2022 10:15-0400 Respiratory rate 18 /min Lili Chang Other [employer] Other 05-19-2022 10:15-0400 SaO2% (BldA) [Mass fraction] 99 % Lili Chang Other [employer] Other 11-04-2021 10:20-0400 Body height 160.02 cm Ailyn Shepardmond Other [employer] Other 11-04-2021 10:20-0400 Body mass index (BMI) [Ratio] 37.2 kg/m2 Ailyn Kamryn Other [employer] Other 11-04-2021 10:20-0400 Body temperature 97.2 [degF] Ailyn Kamryn Other [employer] Other 11-04-2021 10:20-0400 Body weight 95.26 kg Ailyn Kamryn Other [employer] Other 11-04-2021 10:20-0400 Respiratory rate 18 /min Ailyn Kamryn Other [employer] Other 11-04-2021 10:20-0400 SaO2% (BldA) [Mass fraction] 97 % Ailyn Kamryn Other [employer] Other 08-08-2021 13:15-0500 Body height 160.02 cm Jeramy Fuchs Other [employer] Other 08-08-2021 13:15-0500 Body mass index (BMI) [Ratio] 37.73 kg/m2 Jeramy Fuchs Other [employer] Other 08-08-2021 13:15-0500 Body temperature 98.6 [degF] Jeramy Fuchs Other [employer] Other 08-08-2021 13:15-0500 Body weight 96.62 kg Jeramy Fuchs Other [employer] Other 08-08-2021 13:15-0500 Respiratory rate 16 /min Jeramy Fuchs Other [employer] Other 08-08-2021 13:15-0500 SaO2% (BldA) [Mass fraction] 98 % Jeramy Fuchs Other [employer] Other Encounters Encounter Date Encounter Type Care Provider Facility Start: 03-21-2025 End: 03-21-2025 BamCRISPR THERAPEUTICSo flowsheet Candice Marvin MD [facility] Start: 03-21-2025 End: 03-21-2025 BamCRISPR THERAPEUTICSo flowsheet Candice Marvin MD Work Phone: [facility] Start: 03-21-2025 End: 03-21-2025 Office outpatient new 45 minutes Candice Marvin MD Work Phone: [facility] Comment on above: Multinodular goiter (Primary Dx); Abnormal finding on thyroid function test; Encounter for dietary consultation; Class 2 obesity due to excess calories without serious comorbidity with body mass index (BMI) of 36.0 to 36.9 in adult Start: 03-07-2025 End: 03-07-2025 Bamboo flowsheet Jose Mcrae DO Work Phone: [facility] Start: 03-07-2025 End: 03-07-2025 Bamboo flowsheet Jose Mcrae DO Work Phone: [facility] Start: 03-07-2025 End: 03-07-2025 Patient encounter procedure Jose Mcrae DO -[facility] Work Phone: Start: 03-07-2025 End: 03-07-2025 Office outpatient visit 25 minutes Jose Mcrae DO Work Phone: [facility] Comment on above: Thyroid nodule (Prim sundar Dx); Nontoxic multinodular goiter Start: 03-07-2025 End: 03-07-2025 ambulatory Indy Gilbert APRN Work Phone: [facility] Work Phone: Start: 02-22-2025 Non-patient / Non-visit Jose goldberg DO -[facility] Work Phone: Start: 02-22-2025 End: 02-22-2025 ambulatory JOSE MCRAE Not Available Start: 02-22-2025 End: 02-22-2025 Bamboo flowsheet Jose Mcrae DO Work Phone: [facility] Start: 02-22-2025 End: 02-22-2025 Bamboo flowsheet Jose Mcrae DO Work Phone: [facility] Start: 02-22-2025 End: 02-22-2025 Office outpatient new 45 minutes Jose Mcrae DO Work Phone: [facility] Comment on above: Nontoxic multinodula r goiter (Primary Dx); Thyroid nodule ; Thyroid dysfunction Start: 02-07-2025 ambulatory Indy Silver paty DUEÑAS Work Phone: [facility] Work Phone: Start: 02-07-2025 Non-patient / Non-visit Vinnie hartmann Ofelia CONCRETE INSPECTOR VERTICAL LATHE OPERATOR -[facility] Work Phone: Start: 01-25-2025 End: 01-25-2025 Patient encounter procedure Indy Szymanskigino CONCRETE INSPECTOR [facility] Work Phone: Start: 01-17-2025 End: 01-17-2025 Clinisync Result Encounter Magno Rebeka DO Work Phone: [facility] Unsolicited Start: 01-17-2025 End: 01-17-2025 Clinisync Result Encounter Magno Rebeka DO Work Phone: [facility] Unsolicited Start: 01-17-2025 Non-patient / Non-visit [facility] Work Phone: Start: 12-20-2024 End: 12-20-2024 Bamboo flowsheet Tierney Bass UNIVERSITY LIBRARIAN Work Phone: [facility] Start: 12-20-2024 End: 12-20-2024 Bamboo flowsheet Tierney Bass UNIVERSITY LIBRARIAN Work Phone: [facility] Start: 12-20-2024 End: 12-20-2024 Office outpatient visit 15 minutes Tierney Bass UNIVERSITY LIBRARIAN Work Phone: [facility] Comment on above: Encounter for weight management Start: 12-20-2024 End: 12-20-2024 ambulatory TIERNEY BASS Not Available Start: 12-07-2024 End: 12-07-2024 ambulatory [facility] Work Phone: Start: 12-07-2024 End: 12-07-2024 Patient encounter procedure [facility] Work Phone: Start: 12-07-2024 End: 12-07-2024 Patient encounter status Indy Gilbert CONCRETE INSPECTOR VERTICAL LATHE OPERATOR [facility] Start: 11-29-2024 End: 11-29-2024 Patient encounter status Indy Gilbert CONCRETE INSPECTOR-UNIVERSITY LIBRARIAN Work Phone: [facility] Start: 11-29-2024 Encounter for genera l adult medical examination without abnormal findings [facility] Start: 11-29-2024 End: 11-29-2024 Orders Only Indy Gilbert CONCRETE INSPECTOR-UNIVERSITY LIBRARIAN Work Phone: [facility] Comment on above: Encounter for genera l adult medical examination without abnormal findings (Primary Dx) Start: 11-23-2024 Patient encounter status [facility] Start: 11-03-2024 End: 11-03-2024 Bamboo flowsheet Magno Rebeka DO Work Phone: [facility] Start: 11-03-2024 End: 11-10-2024 Bamboo flowsheet Magno Rebeka DO Work Phone: [facility] Start: 11-03-2024 End: 11-10-2024 Clinisync Result Encounter Magno Rebeka DO Work Phone: [facility] Unsolicited Start: 11-03-2024 End: 11-03-2024 ambulatory MAGNO REBEKA Not Available Start: 10-13-2024 End: 10-13-2024 ambulatory [place] Raymon PEARL [facility] Start: 10-13-2024 End: 10-13-2024 Office outpatient new 30 minutes Lindsey Pearl DO Work Phone: [facility] Comment on above: Fibroadenoma of left breast (Primary Dx); History of benign phyllodes neoplasm of breast; Family history of malignant neoplasm of ovary in first degree relative Start: 10-06-2024 End: 10-06-2024 Telephone encounter Bel Ennis RN [facility] [place] [facility] Start: 10-04-2024 End: 10-04-2024 ambulatory Laila Nichole [facility] Start: 09-29-2024 End: 09-29-2024 ambulatory [facility] Start: 09-09-2024 End: 09-09-2024 Bamboo flowsheet Mirela [...] Not Available Start: 05-28-2024 End: 05-28-2024 ambulatory [facility] Work Phone: Start: 05-28-2024 End: 05-28-2024 Patient encounter procedure [facility] Work Phone: Start: 04-29-2024 End: 04-29-2024 Bamboo [...] Available Start: 08-12-2023 End: 08-12-2023 ambulatory Indy Gilbert Other [employer] Other Start: 08-12-2023 Office outpatient vi sit 15 minutes Indy Silveracher [facility] Start: 07-24-2023 End: 07-24-2023 ambulatory Indy Silveracher Other [employer] Other Start: 07-24-2023 Office outpatient vi sit 25 minutes Indy Richardsonr [facility] Start: 01-22-2023 End: 01-22-2023 ambulatory Indy Richardsonr Other [employer] Other Start: 01-22-2023 Office outpatient vi sit 15 minutes Indy Silveracher [facility] Start: 01-16-2023 End: 01-16-2023 ambulatory Indy Silverantoniettar Other [employer] Other Start: 01-16-2023 Telephone encounter Indy Szymanskichristopher her [facility] [place] Start: 07-21-2022 End: 07-21-2022 ambulatory Yessenia Renato Other [employer] Other Start: 07-21-2022 Office outpatient vi sit 25 minutes Yessenia Renato [facility] Start: 05-20-2022 End: 05-20-2022 ambulatory Indy Silverpaty Other [employer] Other Start: 05-20-2022 Telephone encounter Indy Ambrose her [facility] Start: 05-19-2022 End: 05-19-2022 ambulatory Lili Downing Other [employer] Other Start: 05-19-2022 Office outpatient vi sit 25 minutes Lili Downing [facility] Start: 11-04-2021 End: 11-04-2021 ambulatory Ailyn Harry Other [employer] Other Start: 11-04-2021 Office outpatient vi sit 15 minutes Ailyn Harry [facility] Start: 08-08-2021 End: 08-08-2021 ambulatory Jeramy Fuchs Other [employer] Other Start: 08-08-2021 Office outpatient vi sit 15 minutes Jeramy Fuchs [facility] Start: 07-26-2021 End: 07-26-2021 ambulatory Indy Gilbert Other [employer] Other Start: 07-26-2021 Telephone encounter Indy Arnol her [facility] Start: 07-25-2021 End: 07-25-2021 ambulatory Indy Gilbert Other [employer] Other Start: 07-25-2021 Telephone encounter Indy Arnol her [facility] Start: 07-24-2021 End: 07-24-2021 ambulatory Indy Gilbert Other [employer] Other Start: 07-24-2021 Telephone encounter Indy Arnol her [facility] Start: 07-11-2021 End: 07-11-2021 ambulatory Indy Richardsonr Other [employer] Other Start: 07-11-2021 Telephone encounter Indy Arnol her [employer] Start: 06-05-2021 End: 06-05-2021 ambulatory Indy Richardsonr Other [employer] Other Start: 06-05-2021 Office outpatient vi sit 15 minutes Indy Gilbert [facility] Start: 05-19-2020 End: 05-20-2020 Patient encounter procedure INDY GILBERT Facility:[facility] Start: 07-31-2019 End: 07-31-2019 Patient encounter procedure KRISH GO Facility:[facility] Start: 03-03-2018 End: 03-04-2018 Patient encounter Rowdy Dennison Facility:[id number] Start: 02-24-2018 End: 02-25-2018 Patient encounter oRwdy Dennison Facility:CD:[id number] Procedures Date Procedure Procedure Detail Performing Clinician Start: 02-19-2025 End: 02-19-2025 H/O: section Status post delivery Jose Mcrae DO Work Phone: Start: 01-17-2025 US PELVIS TRANSVAGINAL Magno Rebeka DO Work Phone: Start: 01-17-2025 ALL THYROXINE (T4) Core y Rebeka DO Work Phone: Start: 11-03-2024 IGP,APTIMA HPV,AGE GDLN Magno Rebeka DO Work Phone: Start: 11-03-2024 Microscopic observat ion [Identifier] in Cervix by Cyto stain 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 EHR Cmte Plan of Treatment Date Care Activity Detail Author Start: 03-24-2031 DTaP,Tdap and Td Vaccines (2 - Td or Tdap) DTaP,Tdap and Td Vaccines (2 - Td or Tdap) [facility] Start: 03-20-2026 End: 03-20-2026 Patient encounter procedure 03/20/2026 2:00 PM EDT Office Visit [facility] [address] [place] [address] Candice Marvin MD [address] [place] [address] [facility] Start: 11-09-2025 End: 11-09-2025 [facility] Start: 10-13-2025 Adult BMI Screening Adult BMI Screening [facility] Start: 10-13-2025 Tobacco Screening Tobacco Screening [facility] Start: 09-29-2025 Adult BMI Screening Adult BMI Screening [facility] Start: 04-04-2025 Influenza vaccination Influenza Vaccine [facility] Start: 03-25-2025 End: 03-25-2025 Patient encounter procedure 03/25/2025 10:45 AM EDT Office Visit [facility] [address] [place] [address] Jose Mcrae DO [address] [place] [address] [facility] Start: 03-21-2025 End: 03-21-2026 Thyrotropin [Units/volume] in Serum or Plasma TSH Lab Routine Multinodular goiter Abnormal finding on thyroid function test Expected: 03/21/2025 (Approximate), Expires: 03/21/2026 [facility] Comment on above: Expected: 03/21/2025 (Approximate), Expi res: 03/21/2026 Start: 03-21-2025 End: 03-21-2026 Thyroxine (T4) free [Mass/volume] in Serum or Plasma T4, free Lab Routine Multinodular goiter Abnormal finding on thyroid function test Expected: 03/21/2025 (Approximate), Expires: 03/21/2026 [facility] Comment on above: Expected: 03/21/2025 (Approximate), Expi res: 03/21/2026 Start: 03-21-2025 End: 03-21-2026 Triiodothyronine (T3) Free [Mass/volume] in Serum or Plasma T3, free Lab Routine Multinodular goiter Abnormal finding on thyroid function test Expected: 03/21/2025 (Approximate), Expires: 03/21/2026 [facility] Work Phone: Comment on above: Expected: 03/21/2025 (Approximate), Expi res: 03/21/2026 Start: 03-21-2025 End: 03-21-2025 Patient encounter procedure [facility] Comment on above: Arrived Start: 03-14-2025 End: 03-14-2025 Patient encounter procedure 03/14/2025 9:30 AM EDT Office Visit [facility] [address] [address] Mirela Preston PA [address] [place] [address] [facility] Start: 03-07-2025 End: 03-07-2025 Patient encounter procedure [facility] [place] Comment on above: Arrived Start: 02-22-2025 End: 02-22-2026 Thyroid peroxidase antibody Thyroid peroxidase antibody Lab Routine Thyroid nodule Expected: 02/22/2025 (Approximate), Expires: 02/22/2026 [facility] Work Phone: Comment on above: Expected: 02/22/2025 (Approximate), Expi res: 02/22/2026 Start: 02-07-2025 Patient referral [facility] Work Phone: Start: 01-25-2025 Patient referral [facility] Work Phone: Start: 12-20-2024 End: 12-20-2024 Patient encounter procedure 12/20/2024 1:30 PM EDT Office Visit [facility] [address] [address] Tierney Bass, BEILA [address] [place] [address] Arrived [facility] Comment on above: Arrived Start: 11-03-2024 End: 11-03-2024 Patient encounter procedure [facility] Comment on above: Arrived Start: 10-13-2024 End: 10-13-2024 Patient encounter procedure 10/13/2024 9:00 AM EDT Office Visit [facility] [address] [place] [id number] Lindsey Pearl DO [address] [place], [place] [id number] [facility] Start: 09-09-2024 End: 11-07-2025 MG Breast - bilateral Diagnostic Bilateral diagnostic mammogram Imaging Routine Phyllodes tumor of breast Other specified disorders of breast Expected: 09/09/2024 (Approximate), Expires: 11/07/2025 [facility] Work Phone: Comment on above: Expected: 09/09/2024 (Approximate), Expi res: 11/07/2025 Start: 09-09-2024 End: 09-09-2024 Patient encounter procedure 09/09/2024 9:50 AM EST Office Visit [facility] [address] [phone] Mirela Preston PA [address] [place] [address] Arrived [facility] Comment on above: Arrived Start: 08-12-2024 End: 08-12-2024 Patient encounter procedure [facility] Comment on above: Arrived Start: 07-15-2024 End: 07-15-2024 Patient encounter procedure [facility] Comment on above: Arrived Start: 04-29-2024 End: 04-29-2024 Patient encounter procedure [facility] Comment on above: Arrived Start: 04-04-2024 Influenza vaccination Influenza Vaccine [facility] Start: 2014 Screening for malignant neoplasm of cervix Pap Smear [facility] Start: 12-26-2011 Adult BMI Follow Up Plan Adult BMI Follow Up Plan [facility] Start: 2005 Depression Screening Depression Screening [facility] Start: 2005 Tobacco Screening Tobacco Screening [facility] End: 11-29-2025 CBC W Auto Differential panel - Blood CBC auto differential Lab STAT Encounter for general adult medical examination without abnormal findings 1 Occurrences starting 11/29/2024 until 11/29/2025 [facility] Work Phone: Comment on above: 1 Occurrences starting 11/29/2024 until 11/29/2025 CBC W Auto Different ial panel - Blood CBC auto differential Lab STAT Encounter for general adult medical examination without abnormal findings 11/29/2024 8:19 AM EDT [facility] End: 11-29-2025 Comprehensive metabolic 2000 panel - Serum or Plasma Comprehensive metabolic panel Lab Routine Encounter for general adult medical examination without abnormal findings 1 Occurrences starting 11/29/2024 until 11/29/2025 [facility] Comment on above: 1 Occurrences starting 11/29/2024 until 11/29/2025 Comprehensive metabo lic 2000 panel - Serum or Plasma Comprehensive metabolic panel Lab Routine Encounter for general adult medical examination without abnormal findings 11/29/2024 8:19 AM EDT [facility] End: 11-29-2025 Lipid 1996 panel - Serum or Plasma Lipid profile Lab Routine Encounter for general adult medical examination without abnormal findings 1 Occurrences starting 11/29/2024 until 11/29/2025 [facility] Comment on above: 1 Occurrences starting 11/29/2024 until 11/29/2025 Lipid 1996 panel - S jenny or Plasma Lipid profile Lab Routine Encounter for general adult medical examination without abnormal findings 11/29/2024 8:19 AM EDT [facility] referral [facility] Work Phone: Thyroid gland [facility] Immunizations Immunization Date Immunization Notes Care Provider Fa cility 03-24-2021 tetanus toxoid, redu ugo diphtheria toxoid, and acellular pertussis vaccine, adsorbed [facility] Payers Date Payer Category Payer Self-pay [id number] 2025 Blue Cross Blue Shield BCBS [id number] 2025 Unknown [id number] 2024 Commercial Managed C are - POS [employer] [id number] 2024 Managed Care HMO (unspecified) [id number] 315 2024 Private Health Insurance [id number] 1993 Unknown [id number] 2.840.1.576088.3.57 9.2.593 1993 Unknown [id number] 2.16840.1.123913.3.57 9.2.593 1993 Unknown [id number] 2.16840.1.078472.3.57 9.2.1286 1993 Unknown [id number] 2.16840.1.810443.3.57 9.2.1286 1993 Unknown [id number] 2.16840.1.586716.3.57 9.2.1286 1993 Unknown [id number] 2.840.1.477374.3.57 9.2.128 1993 Unknown [id number] 2.840.1.641280.3.57 9.2.128 1993 Unknown [id number] 2.0.1.600963.3.57 9.2.128 1993 Unknown [id number] .0.1.695945.3.57 9.2.125 1993 Unknown [id number] 2.840.1.688902.3.57 9.2.125 1993 Unknown [id number] 2.0.1.320108.3.57 9.2.1258 1993 Unknown [id number] .1.647578.3.57 9.2.1258 1993 Unknown [id number] 09.19.830.1.607279.3.57 9.2.125 1993 Unknown [id number] 09.19.830.1.910292.3.57 9.2.1258 1993 Unknown [id number] .0.1.293776.3.57 9.2.1258 1993 Unknown [id number] .1.462144.3.57 9.2.1258 1993 Unknown [id number] 09.19.830.1.800142.3.57 9.2.125 1993 Unknown [id number] 840.1.985888.3.57 9.2.125 1993 Unknown [id number] 09.19.830.1.502005.3.57 9.2.125 1959 Unknown [id number] Blue Cross Blue Shield [id number] Blue Cross Blue Shield [id number] Private Health Insurance [id number] Private Health Insurance [employer] [id number] Unknown HCAP/HFA/FAP Active [id number] Unknown [id number] 9.2.531 Social History Date Type Detail Facility Start: 09-23-2023 End: 03-21-2025 Sex Assigned At [facility] Other Start: 08-27-2021 End: 09-23-2023 Tobacco smoking status NJIS Never smoked tobacco (finding) [facility] Start: 1995 Sex Assigned At Female [facility] Start: 09-23-2023 End: 10-13-2024 Tobacco use and exposure Smokeless tobacco non-user [facility] Start: 06-14-2024 End: 03-21-2025 Alcoholic beverage intake Current drinker of alcohol (finding) [facility] Start: 09-23-2023 End: 03-21-2025 History of Social function [facility] Start: 09-23-2023 Alcohol Comment caffeine: 1-2 cups per day coffee, soda [facility] Start: 1995 Sex assigned at Not on file [facility] Tobacco smoking status [facility] Tobacco smoking consumption unknown [facility] Start: 12-23-2022 End: 12-07-2024 Sex Female (finding) [facility] Start: 10-13-2024 Alcoholic beverage intake Ex-drinker (finding) [facility] Within the past 12 months we worried whether our food would run out before we got money to buy more. Never True [facility] NEGATED: Highlighted row [facility] NEGATED: Highlighted row N [facility] Clinical Notes 03-04-2021 to 03-21-2025 Candice Marvin MD - 03/21/2025 1:50 PM Romeo Mcrae DO - 03/07/2025 11:00 AM EDTPsandra Mariely Chasitydieter, DO - 02/22/2025 2:00 PM EDT Note Date & Type Note Facility 03-21-2025 History of Present illness Narrative Siva Weems is a 29 y.o. female Indy Gilbert,* presents with chief complaint of Thyroid Problem HPI: History of Present Illness The patient is a new patient referred by Indy Gilbert for abnormal thyroid function tests. She has a history of multinodular goiter, which was biopsied by Dr. 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 She experiences a range of symptoms [...] MG/24HR vaginal ring 1 Ring, Vaginal, Every 28 days, Insert vaginal ring for 3 weeks, then [...] request of Phys. EHR Cmte Cholelithiasis 02/19/2025 Problem List clean-up per request of Phys. EHR Cmte Elevated LFTs 02/19/2025 Problem List clean-up [facility] Family history of cancer Family history of thyroid nodule 02/19/2025 Fibrocystic disease of right breast 02/19/2025 Fibroid 2014 Gallstone pancreatitis ([facility]) 02/19/2025 Problem List clean-up per request of Phys. EHR Cmte Heart disease High serum triiodothyronine (T3) 02/19/2025 Hyperbilirubinemia 02/19/2025 Problem List clean-up per request of Phys. EHR Cmte Hypertension Low iron Migraine headache 02/19/2025 Migraine without aura and without status migrainosus, not intractable 02/19/2025 Migraines Motion sickness 02/19/2025 Non morbid obesity due to excess calories 02/19/2025 Poor posture 02/19/2025 , delivered ([facility]) 02/19/2025 Problem List clean-up per request of Phys. EHR Cmte -induced hypertension ([facility]) 02/19/2025 Problem List clean-up per request of Phys. EHR Cmte Primary hypertension 02/19/2025 Right upper quadrant pain 02/19/2025 Status post delivery 02/19/2025 Problem List clean-up per request of Phys. EHR Cmte Thyroid nodule 02/19/2025 UTI (urinary tract infection) 02/19/2025 Problem List clean-up per request of Phys. [facility]HR [facility] Past Surgical History: Procedure Laterality Date BI US GUIDED BREAST LOCALIZATION AND BIOPSY LEFT Left 10/04/2024 BI US GUIDED BREAST LOCALIZATION AND BIOPSY LEFT 10/04/2024 BREAST BIOPSY 2014 BREAST LUMPECTOMY Right x2 in right breast, benign, [facility] SECTION, LOW TRANSVERSE 03/22/2021 CHOLECYSTECTOMY 08/27/2021 Lap TONSILLECTOMY WISDOM TOOTH EXTRACTION 2020 wisdom teeth REVIEW OF SYMPTOMS: 14 POINT OF SYSTEM REVIEWED AND NEGATIVE OBJECTIVE: Visit Vitals Pulse (!) 111 Resp 16 Ht 5' 3 Wt 206 lb SpO2 98% BMI 36.49 kg/m OB Status Having periods Smoking Status Never BSA 2.04 m Physical Exam Constitutional: Appearance: Normal appearance. She [...] on the left side, showing colloid cyst, [place] 2. - Repeat ultrasound in 1 year. Follow-up with ENT. Follow-up: Repeat thyroid function test with TSH, free T4, and free T3. Repeat ultrasound in 1 year. Follow-up with ENT in 1 year. documented in this encounter [facility] 03-07-2025 History of Present illness Narrative Subjective Patient ID: Siva Weems is a 29 y.o. female who presents [...] limits, ear canals are patent, tympanic membranes are intact. Nose: External nose unremarkable, nares patent, septum [...] Nodule(s) to be biopsied have been identified utilizing ultrasound. The patient is asked not to talk [...] of multinodular goiter documented in this encounter [facility] 02-22-[facility]25 History of Present illness Narrative Subjective Patient ID: Siva Weems is a 29 y.o. female who presents for Thyroid Nodule (New patient : thyroid nodule) HPI 29-year-old white female presents today for evaluation of thyroid nodules. Patient was having evaluation for polycystic ovary disease and thyroid functions were found to be abnormal. Subsequent ultrasound revealed evidence of thyroid nodules. Presents today for further evaluation and treatment. Review of Systems Patient denies any pain or fever. Does describe significant difficulties with temperature intolerance and weight change. She was being treated for hypertension but came under control with dietary changes. She does have a significant family history of thyroid goiter. Her mother had her thyroid removed. The rest of her review of systems is negative Allergies as of 02/22/2025 - Reviewed 02/22/2025 Allergen Reaction Noted Amoxicillin Itching, Rash, and Shortness of breath 10/29/2023 Cinnamon Anaphylaxis 10/29/2023 Red dye 01/25/2021 Red dye #40 (allura red) Itching and Swelling 10/29/2023 Past Medical History: Diagnosis Date Anxiety 02/19/2025 BMI 36.0-36.9,adult 02/19/2025 Breast lump Candidal intertrigo 02/19/2025 Chicken pox Choledocholithiasis 02/19/2025 Problem List clean-up per request of Phys. EHR Cmte Cholelithiasis 02/19/2025 Problem List clean-up per request of Phys. EHR Cmte Elevated LFTs 02/19/2025 Problem List clean-up per request of Phys. EHR Cmte Family history of cancer Family history of thyroid nodule 02/19/2025 Fibrocystic disease of right breast 02/19/2025 Fibroid 2014 Gallstone pancreatitis ([facility]) 02/19/2025 Problem List clean-up per request of Phys. EHR Cmte Heart disease High serum triiodothyronine (T3) 02/19/2025 Hyperbilirubinemia 02/19/2025 Problem List clean-up per request of Phys. EHR Cmte Hypertension Low iron Migraine headache 02/19/2025 Migraine without aura and without status migrainosus, not intractable 02/19/2025 Migraines Motion sickness 02/19/2025 Non morbid obesity due to excess calories 02/19/2025 Poor posture 02/19/2025 , delivered ([facility]) 02/19/2025 Problem List clean-up per request of Phys. EHR Cmte -induced hypertension ([facility]) 02/19/2025 Problem List clean-up per request of Phys. EHR Cmte Primary hypertension 02/19/2025 Right upper quadrant pain 02/19/2025 Status post delivery 02/19/2025 Problem List clean-up per request of Phys. EHR Cmte Thyroid nodule 02/19/2025 UTI (urinary tract infection) 02/19/2025 Problem List clean-up per request of Phys. EHR Cmte Current Outpatient Medications: Ascorbic Acid (vitamin C) 1000 MG tablet, , Disp: , Rfl: busPIRone (Buspar) 10 MG tablet, 10 mg, Disp: , Rfl: Cholecalciferol (Vitamin D) 125 MCG (5000 UT) capsule, , Disp: , Rfl: etonogestrel-ethinyl estradiol (Nuvaring) 0.12-0.015 MG/24HR vaginal ring, Insert 1 Ring into the vagina every 28 (twenty-eight) days Insert vaginal ring for 3 weeks, then remove for 1 week., Disp: 1 each, Rfl: 11 ferrous sulfate 325 (65 Fe) MG EC tablet, Take 325 mg by mouth in the morning and 325 mg at noon and 325 mg in the evening. Take with meals. Do not crush, chew, or split., Disp: , Rfl: Magnesium 100 MG capsule, , Disp: , Rfl: metFORMIN (Glucophage) 500 MG tablet, Take 1 tablet (500 mg) by mouth in the morning. Take with meals., Disp: 30 tablet, Rfl: 11 omega-3 acid ethyl esters (Lovaza) 1 g capsule, Take 1 g by mouth in the morning and 1 g before bedtime., Disp: , Rfl: phentermine (Adipex-P) 37.5 MG tablet, Take 1 tablet (37.5 mg) by mouth in the morning. Take before meals., Disp: 90 tablet, Rfl: 0 Past Surgical History: Procedure Laterality Date BI US GUIDED BREAST LOCALIZATION AND BIOPSY LEFT Left 10/04/2024 BI US GUIDED BREAST LOCALIZATION AND BIOPSY LEFT 10/04/2024 BREAST BIOPSY 2014 BREAST LUMPECTOMY Right x2 in right breast, benign, [facility] SECTION, LOW TRANSVERSE 03/22/2021 CHOLECYSTECTOMY 08/27/2021 Lap TONSILLECTOMY WISDOM TOOTH EXTRACTION 2020 wisdom teeth Social History Socioeconomic History Marital status: Spouse name: Not on file Number of children: Not on file Years of education: Not on file Highest education level: Not on file Occupational History Not on file Tobacco Use Smoking status: Never Smokeless tobacco: Never Substance and Sexual Activity Alcohol use: Yes Comment: caffeine: 1-2 cups per day coffee, soda Drug use: Never Sexual activity: Not on file Other Topics Concern Not on file Social History Narrative Education: College [employer] Exercise: none Home smoke detector use: smoke detectors, carbon monoxide detector Living with : spouse 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 Pets: dogs Housing: municipal water no filter, electric heat Social Drivers of Health Financial Resource Strain: Not on file Food Insecurity: No Food Insecurity (10/13/2024) Received from [facility] Hunger Screening Within the past 12 months we worried whether our food would run out before we got money to buy more.: Never True Within the past 12 months the food we bought just didn't last and we didn't have money to get more.: Never True Transportation Needs: Not on file Physical Activity: Not on file Stress: Not on file Social Connections: Not on file Intimate Partner Violence: Not on file Housing Stability: Not on file Objective ENT Physical Exam General Examination: General overview: Normal, age-appropriate, no evidence of distress, overweight Head: Normocephalic, atraumatic Eyes: Pupils are equally round and reactive to light and accommodation, extraocular muscles are intact Ears: External ear architecture within normal limits, ear canals are patent, tympanic membranes are intact. Nose: External nose unremarkable, nares patent, septum intact, no evidence of congestion. Oral cavity: Mucosa moist, no evidence of ulcer, mass, or lesion Throat: Clear Neck/thyroid: Neck supple, full range of motion, no cervical lymphadenopathy, review of her thyroid ultrasound reveals some evidence of enlargement of thyroid nodules. Thyroid ultrasound: Indication: Thyroid goiter /thyroid nodule(s) Consent: Proper consent is obtained. The procedure risks are explained in detail. Questions were encouraged and answered Anesthesia: No anesthesia given Preparation: The patient was placed in proper position. Patient is prepped in standard fashion. Findings: Ultrasound is completed of the thyroid gland. Thyroid gland is of normal size. There are small nodules noted on the right side which are hypoechoic but less than 1 cm. Nodules on the left are also noted. A single dominant nodule at the posterior aspect measuring 17 x 11 x 10 mm. No evidence of increased vascular flow or microcalcification. The nodules found to be mixed density. Some calcific changes are noted in the gland which cause significant acoustic shadowing. Ultrasound reveals normal motion of the vocal cords Disposition: The patient tolerated the procedure extremely well. Patient is fully instructed on postprocedure care and follow-up in this office. Lymph nodes: No cervical lymphadenopathy Skin: Warm [...] Diagnoses and all orders for this visit: Nontoxic multinodular goiter Comments: remaining nodules of the thyroid gland are very small less than 1 cm. Thyroid nodule Comments: we will see this patient back for needle aspiration biopsy. Orders: - Thyroid peroxidase antibody; Future Thyroid dysfunction Comments: We will check her thyroid antibodies to look for evidence of thyroiditis documented in this encounter [facility] 02-07-2025 Hospital Discharge instructions Ambulatory OrdersReferral to ENT Time Frame: 02/07/25, Location: None Selected [facility] Work Phone: 01-25-2025 Chief complaint+R edel for visit Narrative Discuss BW Results January 25, 2025 1:09 pm Referral Order February 07, 2025 4:22p m left thyroid nodule March 07, 2025 11: 25am Reason for Visit Admit Date Family history of thyroid nodule January 252024 1:09pm High serum triiodothyronine (T3) January 252024 1:09pm [facility] Work Phone: 1(287) 109-566006-24-2025 Evaluation note* Diagnosis Onset Date Resolution Status Admit Date Family history of thyroid nodule acu te January 25, 2025 1:09pm High serum triiodothyronine (T3) acu te January 25, 2025 1:09pm [facility] Work Phone: 1(802) 601-317305-19-2025 History of Present illness Narrative* Tierney Bass NP - 12/20/2024 1:30 PM EDT Reason for Appointment: Patient ID: Siva Weems is a 28 y.o. female who presents for Weight Management Patient presents today for a weight management consultation. Patient has been prescribed Adipex andshe is here for her 3rd prescription. Today's [...] LUMPECTOMY Right x2 in right breast, benign, [facility] SECTION, LOW TRANSVERSE 03/22/2021 CHOLECYSTECTOMY 08/27/2021 [...] nursing note reviewed. Exam conducted with a pocketed spring assembler present. Assessment/Plan Encounter Diagnosis Name Primary? Encounter [...] of Tierney Bass NP documented in this encounterSSM [id number] Evaluation note* Diagnosis Onset Date Resolution Status Admit Date Anxiety acute December 07, 2024 8:02am BMI 36.0-36.9,adult acute December 072024 8:02am Migraines acute December 07, 2024 8:02am Wellness examination acute December 07, 2024 8:02am Family history of thyroid nodule acu te January 25, 2025 1:09pm High serum triiodothyronine (T3) acu te January 25, 2025 1:09pm [facility] Work Phone: 1(407) 619-832403-12-2025 History of Present illness Narrative* Lindsey Ennis Amanda, DO - 10/13/2024 9:00 AM EDT Images from the original note were not included. [facility] [address] [facility] [id number] CONSULT NOTE CHIEF COMPLAINT Chief Complaint Patient [...] tumor of the right breast removed in [place], [place] when she was 17 years of age. She had pain at that time which then led to studies of an ultrasound showinga mass and she had a benign phyllodes [...] menses was 10/09/2024. She is 1 para 1.She was age 26 with delivery of her 1st child. She has had a prior and left breast excisions in 2013, 2014 on the right breast. She was on hormonal control but now was switched to nonhormonal control. She denies anynipple discharge. Her family history is positive for [...] over 2 years. 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 All mammograms ultrasounds and biopsy reports were reviewed by me. In the right axilla on ultrasound there was a inclusion cyst. She stated that she felt something but it has gone away and does not feel any further lumps. ] [facility] [address] [place] [address] Surgical Pathology Consultation Patient Name:SIVA WEEMS:1995 (Age: 28)Gender:FTaken:10/04/2024Reported:10/07/2024Physician(s):Magno Staley DO ([phone])Copy To:Laila Nichole MD [id number]. Rec. #:[id number]: #[id number] Final Pathologic Diagnosis Left breast,6 o'clock, 3 [...] data Mammography diagnostic bilateral with CAD Order: [id number] Status: Final result Visible to patient: Yes (not seen) Next appt: None Dx: Other specified disorders of breast; ... 0 Result Notes Assessment Overall 4 - Suspicious Breast Density Overall Breast Composition c - Heterogeneously dense Details Reading Physician Reading Date Result Priority Yogi Napier MD [phone] 09/29/2024 Routine Physician Responsible for MQSA Outcome Reason Yogi Napier MD Signed Narrative & Impression SIVA WEEMS 1995 [id number], [id number], [id number] EXAM: MAMM DIAGNOSTIC BILATERAL W CAD, US [...] 4 c BIOPSY FDA Accredited Performing Facility: [facility] [id number], [facility] [id number] Exam Ended: 09/29/24 08:24 EST Last Resulted: [...] abnormal data Ultrasound breast limited left Order: [id number] Status: Final result Visible to patient: Yes (seen) Next appt: None Dx: Other specified disorders of breast; ... 0 Result Notes Assessment Overall Left 4 - Suspicious 4 - Suspicious Breast Density Overall Breast Composition c - Heterogeneously dense Details Reading Physician Reading Date Result Priority Yogi Napier MD [phone] 09/29/2024 Routine Physician Responsible for MQSA Outcome Reason Yogi Napier MD Signed Narrative & Impression SIVA WEEMS 1995 [id number], [id number], [id number] EXAM: MAMM DIAGNOSTIC BILATERAL W CAD, US [...] data Ultrasound axilla (breast) right limited Order: [id number] Status: Final result Visible to patient: Yes (not seen) Next appt: None Dx: Lump of axilla, right 0 Result Notes Assessment Overall Right 4 - Suspicious 4 - Suspicious Breast Density Overall Breast Composition c - Heterogeneously dense Details Reading Physician Reading Date Result Priority Yogi Napier MD [phone] 09/29/2024 Routine Physician Responsible for MQSA Outcome Reason Yogi Napier MD Signed Narrative & Impression SIVA WEEMS 1995 [id number], [id number], [id number] EXAM: MAMM DIAGNOSTIC BILATERAL W CAD, US [...] No palpable masses noted in either breast. Shehas bruising noted in the lower outer quadrant of her left breast from the recent ultrasound-guidedbiopsy. There is a scar in the upper outer quadrant of her right breast where she had previous lumpectomy for the phyllodes tumor and also a scar on the circumareolar area medially on the right breast. There is no supraclavicular axillary or cervical adenopathy appreciated bilaterally. She was examined in the sitting and supine positions with pocketed spring assembler present. 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 While intending to generate a timely document that accurately reflects the content of the visit, no guarantee can be provided that every grammatical or spelling mistake has been or will be identified or corrected. Thank you for your understanding. [facility] Miscellaneous Notes* Telephone Encounter - Bel Ennis RN - 10/06/2024 12:45 PM EST Call placed to patient to check status following recent breast biopsy. Patient reports no problems.She was encouraged to contact the Breast Center if she develops any new problems at biopsy site. Voices understanding. documented in this encounterC[facility] Telephone encounter Note* Telephone Encounter - Bel Ennis RN - 10/06/2024 12:45 PM EST Call placed to patient to check status following recent breast biopsy. Patient reports no problems.She was encouraged to contact the Breast Center if she develops any new problems at biopsy site. Voices understanding. [facility] History of Present illness Narrative* Najma De Leon LPN - 09/09/2024 9:50 AM EST Reason for Appointment: Patient ID: Siva Weems [...] LUMPECTOMY Right x2 in right breast, benign, [facility] SECTION, LOW TRANSVERSE 03/22/2021 CHOLECYSTECTOMY 08/27/2021 [...] will be given a 90 day supply. Patienthas right breast lump at 10 o'clock position & 1 cm in diameter. Patient given order to have Diagnostic mammogram along with breast US if indicated. Patient to return to clinic for annual appointment. Documented by Najma De Leon LPN on behalf of: Magno Staley DO documented in this encounterSSM [id number] History of Present illness Narrative* Randi Mahan MA - 08/12/2024 8:30 AM EST Reason for Appointment: Patient ID: Siva Weems is a 28 y.o. female who presents for Weight Management (Pt present today for Adipex #2 visit.) Patient presents today for a weight management consultation. Patient has been prescribed Adipex andshe is here for her 2nd prescription. Today's [...] LUMPECTOMY Right x2 in right breast, benign, [facility] SECTION, LOW TRANSVERSE 03/22/2021 CHOLECYSTECTOMY 08/27/2021 Lap TONSILLECTOMY WISDOM TOOTH EXTRACTION 2019 wisdom teeth Assessment/Plan Encounter Diagnosis Name Primary? [...] behalf of MAKSIM Gonzalez documented in this encounterSSM [id number] History of Present illness Narrative* Rachel Stuart LPN - 07/15/2024 9:10 AM EST Reason for Appointment: Patient ID: Siva Weems [...] LUMPECTOMY Right x2 in right breast, benign, [facility] SECTION, LOW TRANSVERSE 03/22/2021 CHOLECYSTECTOMY 08/27/2021 Lap TONSILLECTOMY WISDOM TOOTH EXTRACTION 2019 wisdom teeth Review of Systems: Review of [...] nursing note reviewed. Exam conducted with a pocketed spring assembler present. Assessment/Plan Encounter Diagnosis Name Primary? Encounter [...] of Magno Staley DO documented in this encounterSSM [id number] History of Present illness Narrative* Najma De Leon LPN - 06/14/2024 1:30 PM EST Reason for Appointment: Patient ID: Siva Weems [...] LUMPECTOMY Right x2 in right breast, benign, [facility] SECTION, LOW TRANSVERSE 03/22/2021 CHOLECYSTECTOMY 08/27/2021 [...] nursing note reviewed. Exam conducted with a pocketed spring assembler present. Vitals: Estimated body mass index is [...] patient desires. Patient voiced that she had lumpectomyat age 17 and has not breast feed [...] of: Magno Staley DO documented in this encounterSSM [id number] History of Present illness Narrative* Najma De Leon LPN - 04/29/2024 8:50 AM EDT Reason for Appointment: Patient ID: Siva Weems [...] LUMPECTOMY Right x2 in right breast, benign, [facility] SECTION, LOW TRANSVERSE 03/22/2021 CHOLECYSTECTOMY 08/27/2021 [...] nursing note reviewed. Exam conducted with a pocketed spring assembler present. Vitals: Estimated body mass index is 41.7 kg/m as calculated from the following: Height as of 04/01/24: 5' 3 . Weight as of this encounter: 235 lb 6.4 oz. BP: 116/74 Patient's last menstrual period was 03/27/2024. ASSESSMENT & PLAN ICD-10-CM 1. Intrauterine device surveillance Z30.431 Patient presents today for string check appointment. Patient voiced that she has become cadena sinceinsertion. Informed patient that if this persist she is to contact office to have removed or discuss options. String visualized. RTC for annual and PRN. Documented by Najma De Leon LPN on behalf of: Magno Staley DO documented in this encounterSSM [id number] History of Present illness Narrative* Najma De Leon LPN - 04/01/2024 9:30 AM EDTAssociated Order(s): IUD Insertion Post-Procedure Diagnose(s): Encounter for [...] LUMPECTOMY Right x2 in right breast, benign, [facility] SECTION, LOW TRANSVERSE 03/22/2021 CHOLECYSTECTOMY 08/27/2021 [...] nursing note reviewed. Exam conducted with a pocketed spring assembler present. Vitals: Estimated body mass index is [...] cut to the length from external os. Allinstruments were removed from the vagina. Post-procedure instructions given. All of patients questions were answered and she expressed understanding. Advised to call interim with any questions or concerns. Follow Up: Patient is to return to the office in 4 weeks for a string check. Documented by Najma De Leon LPN on behalf of: Magno Staley DO documented in this encounterSSM [id number] Evaluation note* Encounter Date Diagnosis Assessment Notes Treatment Notes Treatment Clinical Notes Aug, Disorder of left eustachian tube [...] verbalizes understanding and agreement with treatment plan. [facility] Other 12-21-2023 Evaluation note* Encounter Date Diagnosis [...] she wants to go forward further imaging. [facility] Other 06-21-2023 Evaluation note* Encounter Date Diagnosis [...] STD protection. Call with any side effects. [facility] Other 06-15-2023 Evaluation note* Encounter Date Diagnosis Assessment Notes Treatment Notes Treatment Clinical Notes Jan, Anxiety (ICD-10 - F41.9) [facility] Other 12-18-2022 Evaluation note* Encounter Date Diagnosis [...] primary care provider to discuss antibiotic therapy [facility] Other 10-16-2022 Evaluation note* Encounter Date Diagnosis [...] treatment plan. Patient left in stable condition [facility] Other 04-03-2022 Evaluation note* Encounter Date Diagnosis [...] Patient care instructions given in writting by [facility] document. [facility] Other 01-05-2022 Evaluation note* Encounter Date Diagnosis Assessment Notes Treatment Notes Treatment Clinical Notes Aug, Contact with and (suspected) exposure to other viral communicable diseases (ICD-10 - Z20.828) Aug, COVID-19 virus infection (ICD-10 - U07.1) Today you tested positive for the COVID virus. This mean you need to follow all CDC quarantine guidelines found at coronavirus.[email or web address].g ov. It [...] Patient care instructions given in writting by [facility] document. [facility] Other 11-02-2021 Evaluation note* Encounter Date Diagnosis [...] You have been given relevant education handouts. [facility] Other 08-01-2021 History general Narrative - Reported* Type Description Date Medical History Migraines Medical History Gallstones Surgical History tonsillectomy Surgical History lumpectomy x 2 Surgical History 03/2021 Hospitalization History childbirth 03/2021 Hospitalization History elevated liver enzymes 1 09/2020 [facility] Other 08-01-2021 History general Narrative - Reported* Type Description Date Medical History Migraines Medical History Gallstones Surgical History tonsillectomy Surgical History lumpectomy x 2 Surgical History 03/2021 Surgical History gall bladder 08/2021 Hospitalization History childbirth 03/2021 Hospitalization History elevated liver enzymes 1 09/2020 [facility] Other evaluation noteNo [employer] Other evaluation noteNoAlephD Other evaluation note* Diagnosis Onset Date Resolution Status [facility] Work [facility]: evaluation note* Diagnosis Encounter for initial prescription of contraceptives, unspecified contraceptive Mastitis Inflammatory disease of breast Breast tenderness in female [facility] Diagnosis Encounter for weight management [facility] Diagnosis Encounter for insertion of intrauterine contraceptive device (IUD) Encounter for insertion of mirena IUD [facility] Diagnosis Intrauterine device surveillance [facility]* Diagnosis Weight gain Other symptoms concerning nutrition, metabolism, and development Encounter for weight management [facility] Diagnosis Encounter for weight management control counseling Phyllodes tumor of breast Other specified disorders of breast [facility]* Diagnosis Fibroadenoma of left breast- Primary History of benign phyllodes neoplasm of breast Family history of malignant neoplasm of ovary in first degree relative [facility] Diagnosis Encounter for general adult medical examination without abnormal findings- Primary documented [facility] this [facility] noteNo assessment information available [facility] Work Phone: Evaluation note* Diagnosis Encounter for weight management documented in this encounter [facility]* Diagnosis Nontoxic multinodular goiter- Primary Nontoxic multinodular goiter Thyroid nodule Nontoxic uninodular goiter Thyroid dysfunction Unspecified disorder of thyroid documented in this encounter [facility]* Diagnosis Thyroid nodule- Primary Nontoxic uninodular goiter Nontoxic multinodular goiter Nontoxic multinodular goiter documented in this encounter [facility]* Diagnosis Multinodular goiter- Primary Nontoxic multinodular goiter Abnormal finding on thyroid function test Encounter for dietary consultation Class 2 obesity due to excess calories without serious comorbidity with body mass index (BMI) of 36.0 to 36.9 in adult [facility] Narrative - Reported* Type Description Date Medical History Migraines Surgical History tonsillectomy Surgical History lumpectomy x 2 [employer] Other History general [facility]ative - [facility] Other History general Narrative - [facility]orted[facility] Other Hismkmy general Narrative - [facility]orted[facility] Other InstructionsNot on filedocumented in this encounter [facility] [employer] SystemInstructionsNot on filedocumented in this encounter [facility] [place] SystemInstructionsNot on filedocumented in this encounter [facility] [employer] [facility] Summary Purpose Family History Relationship Condition Age at Onset Recorded Date/T shabnam brother Hypertension Unknown mother Hypertension Unknown Diabetes mellitus Unknown father Hypertension Unknown father Family history of mental disorder Unknown Anxiety Unknown mother Depression Unknown Family history of mental disorder Unknown Advance Directives Advance Directive Response Recorded Date/ Time Advance Directives No January 10 1 6:25pm Chief Complaint and Reason for Visit Chief Complaint rash under breast Reason for Visit Candidal intertrigo Chief Complaint Admit Date wellness December 07, 2024 8:02am Chief Complaint Admit Date wellness December 07, 2024 8:02am Discuss BW Results January 25, 2025 1:09 pm Referral Order February 07, 2025 4:22p m Reason for Visit Admit Date Anxiety December 07, 2024 8:02am BMI 36.0-36.9,adult December 07, 2024 8:02am Migraines December 07, 2024 8:02am Wellness examination December 07, 2024 8:02a m Family history of thyroid nodule January 252024 1:09pm High serum triiodothyronine (T3) January 252024 1:09pm Additional Source Comments INFORMATION SOURCE (unrecogn ized section and content) DATE CREATED AUTHOR 03/04/2018 [facility] DATE CREATED AUTHOR AUTHOR'S ORGANIZ ATION 05/23/2020 [facility] DATE CREATED AUTHOR AUTHOR'S ORGANIZ ATION 07/30/2021 [facility] DATE CREATED AUTHOR AUTHOR'S ORGANIZ ATION 10/09/2024 [facility] DATE CREATED AUTHOR AUTHOR'S ORGANIZ ATION 10/15/2024 [facility] DATE CREATED AUTHOR AUTHOR'S ORGANIZ ATION 11/30/2024 [facility] DATE CREATED AUTHOR AUTHOR'S ORGANIZ ATION 03/09/2025 [facility] EPIC DATE CREATED AUTHOR AUTHOR'S ORGANIZ ATION 03/21/2025 [facility] REASON FOR VISIT (unrecogniz ed section and content) Reason Comments Contraception Reason Comments follow up medication Reason Comments Contraception Mirena insert Reason Comments String check Reason Comments Weight Management Pt present today for Adipex #2 visit. Reason Comments Breast Mass Fibroadenoma of left breast, biopsy performed 10/04/24, referred by Dr. Staley Reason Comments Weight Management Reason Comments Thyroid Nodule New patient : thyroi d nodule Specialty Diagnoses / Procedures Referred By Terrance ward Referred To Contact Otolaryngology Diagnoses Nontoxic single thyroid nodule Procedures MA UNLISTED EVALUATION AND MANAGEMENT SERVICE [facility] [address] [place] [address] Phone: tel: fax: Jose Mcrae DO [address] [place] [address] Phone: tel: fax: Referral ID Status Reason Start Date Expiration Date V isits Requested Visits Authorized [id number] Pending Review 02/08/2025 08/07/2025 1 1 Reason Comments Thyroid Nodule FNA Reason Comments Thyroid Problem Specialty Diagnoses / Procedures Referred By Contac t Referred To Contact Endocrinology Diagnoses Other specified abnormal findings of blood chemistry Procedures MA OFFICE/OUTPATIENT NEW MODERATE MDM 45 MINUTES Indy Gilbert NP [facility] Referrals ONLY fax: Candice Marvin MD [address] [place] [address] Phone: tel: fax: Referral ID Status Reason Start Date Expiration Date V isits Requested Visits Authorized [id number] Pending Review 01/26/2025 07/25/2025 1 1 Care Teams (unrecognized sec tion and content) Team Status: Active Member Role Status Dates Indy Gilbert APRN UNIVERSITY LIBRARIAN-C Primary Care Provider Active Team Status: Inactive Member Role Status Dates Indy Gilbert APRN [employer]IVERSITY LIBRARIAN-C Primary Care Provider, Attending Provider Active Start: May 28, 2024 End: May 28, 2024 It Service Continuity Supervisor Relationship Specialty Start Date End Date Indy Gilbert NP [address] [place] [address] PCP - General Family Medicine 10/27/23 It Service Continuity Supervisor Relationship Specialty Start Date End Date Indy Gilbert NP [address] [place] [address] PCP - General Family Medicine 10/27/23 It Service Continuity Supervisor Relationship Specialty Start Date End Date Indy Gilbert NP [address] [place] [address] PCP - General Family Medicine 10/27/23 It Service Continuity Supervisor Relationship Specialty Start Date End Date Indy Gilbert NP [address] [facility] [place] [address] PCP - General Family Medicine 10/27/23 It Service Continuity Supervisor Relationship Specialty Start Date End Date Indy Gilbert NP [address] [facility] [place] [address] PCP - General Family Medicine 10/27/23 It Service Continuity Supervisor Relationship Specialty Start Date End Date Indy Gilbert NP [address] [facility] [place] [address] PCP - General Family Medicine 10/27/23 It Service Continuity Supervisor Relationship Specialty Start Date End Date Indy Gilbert NP [address] [facility] [place] [address] PCP - General Family Medicine 10/27/23 It Service Continuity Supervisor Relationship Specialty Start Date End Date Indy Gilbert NP [address] [facility] [place] [address] PCP - General Family Medicine 10/27/23 It Service Continuity Supervisor Relationship Specialty Start Date End Date Indy Gilbert APRN-BELIA [address] [place] [address] PCP - General Nurse Practitioner 12/23/22 It Service Continuity Supervisor Relationship Specialty Start Date End Date Indy Gilbert APRN-NP [address] [place] [address] PCP - General Nurse Practitioner 12/23/22 It Service Continuity Supervisor Relationship Specialty Start Date End Date Indy Gilbert NP [address] [place] [address] PCP - General Family Medicine 10/27/23 It Service Continuity Supervisor Relationship Specialty Start Date End Date Indy Gilbert APRN-UNIVERSITY LIBRARIAN [address] [place] [address] PCP - General Nurse Practitioner 12/23/22 Team Status: Inactive Member Role Status Dates Indy Gilbert APRN UNIVERSITY LIBRARIAN-C Primary Care Provider, Attending Provider Active Start: December 07, 2024 End: December 07, 2024 It Service Continuity Supervisor Relationship Specialty Start Date End Date Indy Gilbert NP [address] [place] [address] PCP - General Family Medicine 10/27/23 It Service Continuity Supervisor Relationship Specialty Start Date End Date Indy Gilbert NP [address] [place] [address] PCP - General Family Medicine 10/27/23 Team Status: Inactive Member Role Status Dates Indy Gilbert APRN UNIVERSITY LIBRARIAN-C Primary Care Provider Active Start: December 07, 2024 End: December 07, 2024 Indy Gilbert APRN UNIVERSITY LIBRARIANNirali Attending Provider Act aubrey Start: December 07, 2024 End: December 07, 2024 Team Status: Active Member Role Status Dates Indy Gilbert APRN UNIVERSITY LIBRARIAN-C Primary Care Provider Active Start: January 17, 2025 Magno Staley DO Attending Provider Active Start : January 17, 2025 Team Status: Inactive Member Role Status Dates Indy Gilbert APRN UNIVERSITY LIBRARIAN-C Primary Care Provider Active Start: January 25, 2025 End: January 25, 2025 Indy Gilbert APRN UNIVERSITY LIBRARIAN-Faiza Attending Provider Act aubrey Start: January 25, 2025 End: January 25, 2025 Team Status: Active Member Role Status Dates LEANA Mg Primary Care Provider Active Start: February 07, 2025 LEANA MgC Attending Provider Act aubrey Start: February 07, 2025 It Service Continuity Supervisor Relationship Specialty Start Date End Date Indy Gilbert NP [address] [place] [address] PCP - General Family Medicine 10/27/23 It Service Continuity Supervisor Relationship Specialty Start Date End Date Indy Gilbert NP [address] [place] [address] PCP - General Family Medicine 10/27/23 It Service Continuity Supervisor Relationship Specialty Start Date End Date Indy Gilbert NP [address] [place] [address] PCP - General Family Medicine 10/27/23 It Service Continuity Supervisor Relationship Specialty Start Date End Date Indy Gilbert NP [address] [place] [address] PCP - General Family Medicine 10/27/23 Team Status: Active Member Role Status Dates Indy Gilbert APRN UNIVERSITY LIBRARIANNirali Primary Care Provider Active Start: February 22, 2025 Jose Mcrae DO Attending Provider Active S tart: February 22, 2025 Team Status: Inactive Member Role Status Dates Jose Mcrae DO Attending Provider Active S tart: March 07, 2025 End: March 07, 2025 It Service Continuity Supervisor Relationship Specialty Start Date End Date Indy Gilbert NP [address] [place] [address] PCP - General Family Medicine 10/27/23 Goals [...] BE BASED ON THE PRIMARY CLINICAL RECORDS. [employer] provides no warranty or guarantee of the accuracy or completeness of information in this document.
== END 2025-03-21 14:56 | disposition home or self-care (01) ==
PROVIDERS: PCP Nurse Practitioner Family; Visit Provider Internal Medicine
DX: E04.2 Nontoxic multinodular goiter (principal); R94.6 Abnormal results of thyroid function studies
CPT/HCPCS: 36415; 84439; 84443; 84481

== ENCOUNTER 2025-05-25 07:01 | Outpatient (OUT) | payer BC, SELFPAY ==
--- OUTSIDE RECORDS SUMMARY | 2025-05-25 07:05 | XMS_ITS | Clinical Summary ---
Author Organization [employer] tem Address [id number] [address] [place] [address] Care Team Providers Care Engineering Executive Name Role Phone Indy Gilbert Primary Care Provid er Allergies Active AllergyReactionsCriticalityNoted DateCommentsAmoxicillinItching,Rash, Shortness Of IbimgtXydk98/27/2024Fd And C Red No.40Anaphylaxis,Itching,Swelling High10/29/2023 Other Reaction(s): hives Medications MedicationSigDispense QuantityRefillsLast FilledStart DateEnd DateStatus ascorbic acid, vitamin C, (VITAMIN C) 1000 mg tablet Take 1 tablet (1,000 mg total) by mouth in the morning.Active magnesium glycinate 100 mg magnesium capsule Take 100 mg by mouth in the morning.Active busPIRone (BUSPAR) 10 mg tablet Take 1 tablet (10 mg total) by mouth in the morning and at bedtime.Active cholecalciferol, vitamin D3, (VITAMIN D3) 5,000 units capsule Take 1 capsule (5,000 Units total) by mouth in the morning.Active ferrous sulfate 325 (65 FE) mg EC tablet Take 1 tablet (325 mg total) by mouth daily with breakfast.Active metFORMIN (GLUCOPHAGE) 500 mg tablet Take 1 tablet (500 mg total) by mouth daily with breakfast.Active omega-3 acid ethyl esters (LOVAZA) 1 gram capsule Take 1 capsule (1 g total) by mouth in the morning and 1 capsule (1 g total) before bedtime.Active phentermine (ADIPEX-P) 37.5 mg tablet Take 1 tablet (37.5 mg total) by mouth every morning before breakfast.Active Active Problems No known active problems Family History Medical HistoryRelationNameCommentsNo Known ProblemsFatherBreast cancerMaternal AuntDepressionMotherGoiterMotherHypertensionMotherOvarian cancerMother Endometrial cancerNeg HxRelationNameStatusCommentsFatherAliveMaternal AuntMother Alive Social History Tobacco UseTypesPacks/DayYears UsedDateSmoking Tobacco: NeverSmokeless Tobacco: Never Tobacco Cessation:Counseling Given: Not Answered Alcohol UseStandard Drinks/WeekCommentsNot Currently0 (1 standard drink = 0.6 oz pure alcohol)Hunger ScreeningAnswerDate RecordedWithin the past 12 months we worried whether our food would run out before we got money to buy more.Never True10/13/2024Within the past 12 months the food we bought just didn't last and we didn't have money to get more.Never True10/13/2024CommentsUnknownSex and Gender InformationValueDate RecordedSex Assigned at BirthNot on fileLegal AnhFbdkhc65/22/2023 7:23 AM EDTGender IdentityNot on fileSexual OrientationNot on file Last Filed Vital Signs Vital SignReadingTime TakenCommentsBlood Rvcueoov769/9410/13/2024 9:38 AM EDT Emprb11882/12/2025 9:38 AM EDTTemperature--Respiratory Rate--Oxygen Saturation-- Inhaled Oxygen Concentration--Mkyuap33.7 kg (215 lb 6.4 oz)10/13/2024 9:38 AM PCOUkpivh670 cm (5' 3 )10/13/2024 9:38 AM EDTBody Mass Index38.16010/13/2024 9:38 AM EDT Plan of Treatment Health MaintenanceDue DateLast DoneCommentsDepression Ezqeiuhjc28/24/2006dult BMI Follow Up Plan12/26/2011Influenza Sgxtqlp2204/04/2025dult BMI Screening Tobacco Mbkwnjrjl05Pap Smear11/04/2027 11/03/2024DTaP,Tdap and Td Vaccines (2 - Td or Tdap)/ Medical Devices Not on file Insurance Care Teams Team MemberRelationshipSpecialtyStart DateEnd Date Indy Gilbert APRN-NP [address] [facility], [place] [address] PCP - GeneralNurse Practitioner12/23/22
--- OUTSIDE RECORDS SUMMARY | 2025-05-25 07:05 | XMS_ITS | Clinical Summary ---
Author Organization [facility] Address [address] [place] [address] Care Team Providers Care Machine Turner Name Role Phone Idny Gilbert MANAGER [place] Primary Care Provider Allergies Active AllergyReactionsCriticalityNoted DateCommentsAmoxicillinItching,Rash, Shortness of sxzhkuHdvc06/27/4044IeoonhnlFxchdqjnvavZjau26/27/2024Red Dye 01/25/2021 Other Reaction(s): Swelling of Lip/Tongue/Throat Red Dye #40 (Allura Red)Itching,Wrmrxfjp39/27/2024 Other Reaction(s): hives Medications MedicationSigDispense QuantityRefillsLast FilledStart DateEnd DateStatus busPIRone (Buspar) 10 MG tablet 10 mg4Active Ascorbic Acid (vitamin C) 1000 MG tablet Active Cholecalciferol (Vitamin D) 125 MCG (5000 UT) capsule Active Magnesium 100 MG capsule Active metFORMIN (Glucophage) 500 MG tablet Indications:Encounter for weight managementTake 1 tablet (500 mg) by mouth in the morning. Take with meals. 30 tablet 5Active Additional Information Patient not taking.Reported on 03/21/2025 omega-3 acid ethyl esters (Lovaza) 1 g capsule Take 1 g by mouth in the morning and 1 g before bedtime.Active ferrous sulfate 325 (65 Fe) MG EC tablet Take 325 mg by mouth in the morning and 325 mg at noon and 325 mg in the evening. Take with meals. Do not crush, chew, or split.Active etonogestrel-ethinyl estradiol (Nuvaring) 0.12-0.015 MG/24HR vaginal ring Indications: control counselingInsert 1 Ring into the vagina every 28 (twenty-eight) days Insert vaginal ring for 3 weeks, then remove for 1 week. 1 each 110ctive phentermine (Adipex-P) 37.5 MG tablet Indications:Encounter for weight managementTake 1 tablet (37.5 mg) by mouth in the morning. Take before meals. 90 tablet 5Active Additional Information Patient not taking.Reported on 03/21/2025 zinc 30 MG tablet Take 30 mg by mouth DailyActive Active Problems ProblemNoted DateDiagnosed DateEncounter for initial prescription of aspqlwrqqgwbht17/11/7380Inrlnfch62/11/2024Encounter for weight management 06/14/2024irth control xrblujbqza98/19/2024elvic pain in qumwpr2203/22/2024 Resolved Problems ProblemNoted DateDiagnosed DateResolved OipnLldezxg11MI 36.0-36.9,adultandidal puiwjneddi07 Ioaqteuuuvxrtzpdgkj35/19/202507/19/2025 Overview (02/19/2025): Problem List clean-up per request of Phys. EHR Cmte Elevated LFTs Overview (02/19/2025): Problem List clean-up per request of Phys. EHR Cmte Family history of thyroid pqkpwh87Fibrocystic disease of right ivywtb48Gallstone pancreatitis ([facility]) Overview (02/19/2025): Problem List clean-up per request of Phys. EHR Cmte Vaguuahfezlktp50 Overview (02/19/2025): Problem List clean-up per request of Phys. EHR Cmte High serum triiodothyronine (T3)4948Zcdzrowurfshpctbph76/19/2025 02/19/2025 Overview (02/19/2025): Problem List clean-up per request of Phys. EHR Cmte Migraine iiajovzz86Migraine without aura and without status migrainosus, not cyhpaypwheo52Motion kmfzgoum06/19/2025 02/19/2025Non morbid obesity due to excess hiosxogo93Poor qjzzlcb81Pregnancy, delivered ([facility]) Overview (02/19/2025): Problem List clean-up per request of Phys. [facility]) Overview (02/19/2025): Problem List clean-up per request of Phys. [facility] Primary qtqcdawlpxtb02Right upper quadrant pain02/19/2025 02/19/2025Status post abeinbln64 Overview (02/19/2025): Problem List clean-up [facility] Phys. [facility] qixmkh35UTI (urinary tract infection)02/19/2025 02/19/2025 Overview (02/19/2025): Problem List clean-up per request of Phys. [facility] Cmte Encounters DateTypeDepartmentCare PstmNfktubzmtem78/22/2025Telephone [facility] [place] [facility] [address] [place] [address] Candice Marvin MD Bfbluls5003/21/2025 1:50 PM EDTOffice Visit [facility] [place] [facility] [address] [place] [address] Candice Marvin MD Multinodular goiter (Primary Dx); Abnormal finding on thyroid function test; Encounter for dietary consultation; Class 2 obesity due to excess calories without serious comorbidity with body mass index (BMI) of 36.0 to 36.9 in adult03/21/2025amboo flowsheet [facility] [place] [address] [place] [address] Candice Marvin MD 03/07/2025 11:00 AM EDTOffice Visit [facility] [address] [place] [address] Jose Harden, Thyroid nodule (Primary Dx); Nontoxic multinodular ppwark1103/07/2025amboo flowsheet [facility] [place] [address] [place] [address] Jose Harden DO 03/07/20257607Hfbsqc55/22/2025 2:00 PM EDTOffice Visit [facility] [address] [place] [address] Jose Harden, Nontoxic multinodular goiter (Primary Dx); Thyroid nodule ; Thyroid rfizihxqmdz36/22/2025amboo flowsheet [facility] [address] [place] [address] Jose Harden DO 02/22/2025Travelfrom Last 3 Months Immunizations ImmunizationAdministration DatesNext OjuIbqw1503/24/2021 Family History Medical HistoryRelationNameCommentsAsthmaBrother 2Sam CoyerRashes / Skin problemsBrother 3Alex PerryAsthmaBrother 4Sam CoyerRashes / Skin problemsBrother 5Alex PerryHeart diseaseFatherHeart failureFather's Brother 1Jan JankowiakHeart failureFather's Brother 2Jan JankowiakHeart diseaseMaternal GrandmotherDiabetes MotherCassandra CoyerHeart diseaseMotherCassandra CoyerMigrainesMotherCassandra CoyerThyroid cancerMotherCassandra CoyerThyroid diseaseMotherCassandra Coyer CancerMother's Sister 1Cristen CoyerCancerMother's Sister 2Cristen CoyerAlcohol abusePaternal GrandfatherCOPDPaternal GrandmotherAgatha JankowiakHeart disease Paternal GrandmotherAgatha JankowiakHeart failurePaternal GrandmotherAgatha JankowiakRelationNameStatusCommentsBrother 1y4Katsgul 2Sam CoyerAliveBrother 3 Mateusz PerryAliveBrother 4Sam CoyerAliveBrother 5Alex PerryAliveFatherAlive Father's Brother 1Jan JankowiakAliveFather's Brother 2Jan JankowiakAliveMaternal GrandfatherDeceasedMaternal GrandmotherAliveMotherCassandra CoyerAliveMother's Sister 1Cristen CoyerAliveMother's Sister 2Cristen CoyerAlivePaternal GrandfatherDeceasedPaternal GrandmotherAgatha JankowiakDeceased Social History Tobacco UseTypesPacks/DayYears UsedDateSmoking Tobacco: NeverSmokeless Tobacco: Never Tobacco Cessation:Counseling Given: Not Answered Alcohol UseStandard Drinks/WeekCommentsYes0 (1 standard drink = 0.6 oz pure alcohol)caffeine: 1-2 cups per day coffee, sodaCommentsNoSex and Gender InformationValueDate RecordedSex Assigned at BirthNot on fileLegal SexFemale 10/16/2022 9:44 PM EDTGender IdentityNot on fileSexual OrientationNot on file Last Filed Vital Signs Vital SignReadingTime TakenCommentsBlood Gnsxjwqz605/8004 1:47 PM EDT Sgyej83123 1:42 PM EDTTemperature--Respiratory Xqga0438/ 1:42 PM EDTOxygen Xpcmutjqhd13%03/21/2025 1:42 PM EDTInhaled Oxygen Concentration-- Dhdupz20.4 kg (206 lb)03/21/2025 1:42 PM IJTEahbas192 cm (5' 3 )03/21/2025 1:42 PM EDTBody Mass Index36.4908 1:42 PM EDT Plan of Treatment DateTypeDepartmentCare Team (Latest Contact Info)Ofnzkvtiyss15/08/2026 9:00 AM EDTOffice Visit [facility] [address] [address] Mirela Preston PA [address] [place] [address] 03/20/2026 2:00 PM EDTOffice Visit [facility] [place] [facility] [address] [place] [address] Candice Marvin MD [address] [place] [address] Procedures Procedure NamePriorityDate/TimeAssociated DiagnosisCommentsT4, FREERoutine 03/22/2025 8:25 AM EDT Multinodular goiter Abnormal finding on thyroid function test INGMjwzbcc07/19/2025 8:20 AM EDT Multinodular goiter Abnormal finding on thyroid function test T3, HQPWCykiggb15/19/2025 8:20 AM EDT Multinodular goiter Abnormal finding on thyroid function test THYROID PEROXIDASE SPWRBGYYXOYfbqdqx97/04/2025 11:15 AM EDT Thyroid nodule from Last 3 Months Results * T4, free (03/22/2025 8:25 AM EDT)Specimen (Source)Anatomical Location / LateralityCollection Method / VolumeCollection TimeReceived TimeBloodVenous blood specimen / Unknown Narrative Authorizing ProviderResult TypeResult StatusCandice Marvin MDLAB BLOOD ORDERABLESFinal ResultPerforming OrganizationAddressCity/State/ZIP CodePhone Number [facility] * T3, free (03/22/2025 8:20 AM EDT)Specimen (Source)Anatomical Location / LateralityCollection Method / VolumeCollection TimeReceived TimeBloodVenous blood specimen / Unknown Narrative Authorizing ProviderResult TypeResult Statusleda Wilda Shavonne [facility] BLOOD ORDERABLESFinal ResultPerforming OrganizationAddressCity/State/ZIP CodePhone Number [facility] * TSH (03/22/2025 8:20 AM EDT)Specimen (Source)Anatomical Location / Laterality Collection Method / VolumeCollection TimeReceived TimeBloodVenous blood specimen / Unknown Narrative Authorizing ProviderResult TypeResult Statusleda Wilda ShavonneNorth [facility] BLOOD ORDERABLESFinal ResultPerforming OrganizationAddressCity/State/ZIP CodePhone Number [facility] * Thyroid peroxidase antibody (03/07/2025 11:15 AM EDT)Specimen (Source) Anatomical Location / LateralityCollection Method / VolumeCollection Time Received TimeBloodVenous blood specimen / Unknown Narrative Authorizing ProviderResult TypeResult StatusJose Harden [facility] BLOOD ORDERABLESFinal ResultPerforming OrganizationAddressCity/State/ZIP CodePhone Number COUNTS INCLUDE [facility] AT [facility] [address] [place] [address], from Last 3 Months Insurance Care Teams Team MemberRelationshipSpecialtyStart DateEnd Date Rohrbacher, Indy A, MANAGER [place] [address] [place] [address] [facility] - [facility]10/27/23
--- OUTSIDE RECORDS SUMMARY | 2025-05-25 07:06 | XMS_ITS | CCD ---
Author Organization [facility] Care Team Providers Care Book Retailer Name Role Phone Rowdy Dennison Unavailable Unavailable Rowdy Dennison Unavailable Unavailable KRISH GO Admitting Unavailable KRISH GO Attending Unavailable RENETTA SHOOK Consulting Unavailable GLENNA ALONZO V Consulting Unavailable KRISH GO Consulting Unavailable INDY GILBERT Admitting Unavailab le INDY GILBERT Attending Unavailab le INDY GILBERT Consulting Unavailab le Indy Gilbert Unavailable Jeramy Fuchs Unavailable Ailyn Harry Unavailable Lili Downing Unavailable Yessenia Gross Unavailable Ofelia RUG DESIGNERIndy Primary Care Provider Ofelia DUEÑAS-RUG DESIGNERIndy Primary Care [facility] er MAGNO STALEY Referring Unavailable NESSARBACHER, INDY Primary Care Unavailable MAGNO STALEY Referring Unavailable NESSARBACHER, INDY Primary Care Unavailable MAGNO STALEY Referring Unavailable ROHRBACHER, INDY Primary Care Unavailable Laila Nichole Referring Unavailable NESSARBACHERINDY Primary Care Unavailable LINDSEY PEARL Attending Unavailable NESSARBACHEINDY Malhotra Referring Unavailable NESSARBACHER, INDY Primary Care Unavailable Rohrbacher SENIOR BENEFITS ANALYST-RUG DESIGNERIndy Primary Care [facility] er INDY GILBERT Referring Unavailable NESSARBACHER, INDY Primary Care Unavailable Rohrbacher SENIOR BENEFITS ANALYSTIndy Primary Care Provider NessarbacheIndy malhotra APRN Attending Provider Magno Staley DO Attending Provider Indy Gilbert APRN Primary Care Provider Indy Gilbert APRN Attending Provider [phone] Jose Mcrae DO Attending Provider MAGNO STALEY Attending Unavailable REBEKA, MAGNO Attending Unavailable TIERNEY BASS Attending Unavailable JOSE MCRAE Attending Unavailable JOSE MCRAE Attending Unavailable CANDICE MARVIN Attending Unavailable INDY GILBERT Referring Unavailab MAGNO House Attending Unavailable REBEKA, MAGNO Attending Unavailable REBEKA, MAGNO Attending Unavailable REBEKA, MAGNO Attending Unavailable MIRELA PRESTON Attending Unavailable Jose Mcrae Attending Unavailable Jose Mcrae Admitting Unavailable Candice Marvin MD Attending Provider [phone] Allergies Allergy ClassificationReported Allergen(s)Allergy TypeDate of OnsetReaction(s) Facility (20 sources)Contrast media; Translations: [red dye]Propensity to adverse ssdqjtjyx22-81-9795nyv swelling, Swelling of Lip/Tongue/Throat, lip swelling [facility] (20 sources)Amoxicillin; Translations: [AMOXICILLIN]Drug Ksidyiw39-00-4916 Itching, Rash, Shortness of breathCrystal Clinic Orthopedic Center (20 sources)Cinnamon PreparationDrug Iwhvfxp49-64-9358AjxjdfkrxcyBLRZ Healthcare (20 sources)Red Dye #40 (Allura Red)Allergy to putokhyra45-40-3558Shuwaor, [facility] ([facility] sources)Fd And C Red No.40; Translations: [FD AND C RED NO.40]Propensity to adverse reactions to yown26-97-8542Garudzzzyzv, Itching, SwellingProMedica [facility]ostoria [facility] (1 source)AmoxicillinDrug Yudoaza24-15-6812XqexypnroCrystal Clinic Orthopedic Center Repository Medications Current Medications MedicationDrug Class(es)DatesSig (Normalized)Sig (Original)amoxicillin 500 mg oral capsule (13 sources)Penicillin-class AntibacterialStart: 43-68-7315ofxh 1 capsule by mouth every eight hoursAmoxicillin 500 MG 1 capsule Orally tid for 10 day(s) Nov, ActiveStart: 07-09-2021 End: 67-69-2457lmsz 1 capsule by mouth twice dailyAmoxicillin 500 mg capsule Discontinued 500 MG PO Twice daily July 12, 2021 1:00am August 27, 2021 9:45am Started 07/08/21 for 10 day courseStart: 53-36-3836qzvl 2 capsules by mouth every twenty-four hoursStart: 91-65-7700tghy 2 capsules by mouth every twenty-four hoursAmoxicillin 500 MG 2 capsules Orally once a day for 10 days Jul, Activeascorbic acid 1000 mg oral tablet (20 sources)Vitamin CAscorbic Acid (vitamin C) 1000 MG tablet Activecalcium ascorbate 500 mg oral tablet (4 sources)Start: 74-60-4477yyqk 1 tablet by mouth once dailyAscorbate Calcium (Vitamin C) 500 mg tablet Active 500 MG PO Daily December 07, 2024 12:00am Complies with drug therapycholecalciferol 0.025 mg oral capsule (20 sources)Vitamin DStart: 03-42-8920vele 1 capsule by mouth once daily Cholecalciferol (Vitamin D3) 25 mcg (1,000 unit) capsule Active 25 MCG PO Daily December 07, 2024 12:00am Complies with drug therapyCholecalciferol (Vitamin D) 125 MCG (5000 UT) capsule Activetake 1 capsule by mouth in the morning cholecalciferol, vitamin D3, (VITAMIN D3) 5,000 units capsule Take 1 capsule (5,000 Units total) bymouth in the morning. Activedesogestrel 0.15 mg / ethinyl estradiol 0.03 mg oral tablet (11 sources)Progestin, EstrogenStart: 06-14-2024 End: 52-79-1055ufxb 1 tablet by mouth once daily, then take 1 tablet by mouth once dailydesogestrel-ethinyl estradiol (Apri) 0.15-30 MG-MCG tablet Indications: Encounter for initial prescription of contraceptives, unspecified contraceptive Take 1 tablet by mouth Daily for 28 days Take 1tablet by mouth daily 28 tablet 11 06/14/2024 Activeescitalopram 5 mg oral tablet (1 source)Serotonin Reuptake InhibitorStart: 91-15-3673sfem 1 tablet by mouth every twenty-four hoursEscitalopram Oxalate 5 MG 1 tablet Orally Once a day for 30 day(s) Oct, Xrczip27 day ethinyl estradiol 0.114033 mg/hr / etonogestrel 0.005 mg/hr vaginal system (19 sources)Progestin, EstrogenStart: 17-39-6067Mummpbugsuuu-Ethinyl Estradiol (Nuvaring) 0.12-0.015 mg/24 hr ring Active 1 VAG RING VAGINAL EVERY 4 WEEKS December 07, 2024 12:00am leave in place for 3 weeks of a 4-week cycle Complies with drug therapyStart: 11-03-2024 End: 41-47-8770hthnqrmkpune-ethinyl estradiol (Nuvaring) 0.12-0.015 MG/24HR vaginal ring Indications: control counseling Insert 1 Ring into the vagina every 28 (twenty-eight) days Insert vaginal ring for 3 weeks, then remove for 1 week. 1 each 11/03/2024 11/03/2025 Active{21 (ethinyl estradiol 0.035 MG / norgestimate 0.25 MG Oral Tablet) / 7 (inert ingredients 1 MG Oral Tablet) } Pack (2 sources)Progestin, EstrogenStart: 28-58-8959qfcd 1 tablet by mouth every twenty-four hoursNorgestimate-Eth Estradiol 0.25-35 MG-MCG 1 tablet Orally Once a day for 28 days Jan, Activetake 1 tablet by mouth once daily as needed Norgestimate-Eth Estradiol 0.25-35 MG-MCG take 1 tablet by mouth once daily for 28 Not-Taking/PRNEtonogestrel-Ethinyl Estradiol (Nuvaring) 0.12-0.015 mg/24 hr ring (1 source)Start: 24-16-4112Piufijcwical-Ethinyl Estradiol (Nuvaring) 0.12-0.015 mg/24 hr ring Active 1 VAG RING VAGINAL EVERY 4 WEEKS December 07, 2024 12:00am leave in place for 3 weeks of a 4-week cycleferrous sulfate 134 mg oral tablet (20 sources)Start: 75-43-4501llzq 1 tablet by mouth once dailyFerrous Sulfate 134 mg (27 mg iron) tablet Active 134 MG PO Daily December 07, 2024 12:00am Complies with drug therapyferrous sulfate 325 (65 Fe) MG EC tablet Take 325 mg by mouth in the morning and 325 mg at noon ses627 mg in the evening. Take with meals. Do not crush, chew, or split. Activefluticasone propionate 0.05 mg/actuat metered dose nasal spray (6 sources)CorticosteroidStart: 33-38-7762Czaaexgfovx Propionate 50 mcg/actuation spray,suspension Active 1 SPRAY INTRANASAL Daily October 1:00am Complies with drug therapyStart: 19-66-2825tlvi 1 spray(s) nasal route once dailyFluticasone Propionate 50 MCG/ACT 1 spray in each nostril Nasally Once a day for 30 days Aug, Activehydrocortisone 10 mg/ml / neomycin 3.5 mg/ml / polymyxin b 00633 unt/ml otic suspension (1 source)Aminoglycoside Antibacterial, Polymyxin-class Antibacterial, CorticosteroidStart: 02-83-6398Skniqxyq-Polymyxin-HC 3.5-96877-4 3 drops right ear Three times a day for 7 days Nov, ActiveMagnesium (20 sources)Magnesium 100 MG capsule Activemagnesium citrate 100 mg oral tablet (4 sources)Start: 95-12-2585flmg 1 capsule by mouth once dailyMagnesium Citrate 100 mg capsule Active 100 MG PO Daily December 07, 2024 12:00am Complies with drug therapymagnesium glycinate 100 mg magnesium capsule (2 sources)take 1 capsule by mouth in the morningmagnesium glycinate 100 mg magnesium capsule Take 100 mg by mouth in the morning. ActivemetFORMIN hydrochloride 500 mg oral tablet (20 sources)BiguanideStart: 06-14-2024 End: 82-75-1468zdeq 1 tablet by mouth once dailyMetformin 500 mg tablet Active 500 MG PO Daily December 07, 2024 12:00am Complies with drug therapynystatin 908507 unt/ml topical cream (5 sources)Polyene AntifungalStart: 66-99-4293Ixswpbny 100,000 unit/gram cream Active 1 APPLIC TOPICAL Twice daily May 28, 2024 12:00am Complies with drug therapyomega-3 acid ethyl esters (correction) 1000 mg oral capsule (20 sources)take 1 capsule by mouth in the morningomega-3 acid ethyl esters (Lovaza) 1 g capsule Take 1 g by mouth in the morning and 1 g before bedtime. ActiveOmega-3 Fatty Acids 500 mg capsule (4 sources)Start: 14-88-2602jteo 1 capsule by mouth once dailyStart: 12-07-2024 take 1 capsule by mouth once dailyOmega-3 Fatty Acids 500 mg capsule Active 500 MG PO Daily December 07, 2024 12:00am Complies with drug therapyStart: 12-07-2024 take 1 capsule by mouth once dailyOmega-3 Fatty Acids 500 mg capsule Active 500 MG PO Daily December 07, 2024 12:00amondansetron 4 mg disintegrating oral tablet (7 sources)Serotonin-3 Receptor AntagonistStart: 47-16-7625Easar: 01-10-2021 End: 30-62-2456kgev 1 tablet by mouth every six hours as needed for nausea Ondansetron Hcl (Zofran) 4 mg Tablet Discontinued 4 MG PO Q6H as needed for nausea January 10, 2021 12:00am March 25, 2021 12:14pmSLYND 4 mg (28) tablet (2 sources)Start: 09-09-2024 End: 09-21-3684coav 1 tablet by mouth in the morningSLYND 4 mg (28) tablet Take 1 tablet by mouth in the morning. 09/09/2024 12/02/2024 ActiveTylenol Extra Strength 500 MG (2 sources)zinc gluconate 30 mg oral tablet (3 sources)take 1 tablet by mouth once dailyzinc 30 MG tablet Take 30 mg by mouth Daily Active Completed/Discontinued Medications MedicationDrug Class(es)DatesSig (Normalized)Sig (Original)acetaminophen 500 mg oral tablet (5 sources)Start: 03-24-2021 End: 52-61-4680kjrt 2 tablets by mouth every six hoursAcetaminophen 500 mg Tablet Discontinued 1000 MG PO Q6H March 24, 2021 12:00am July 09 5:32pmStart: 03-24-2021 End: 17-79-1228ynre 1000 mg by mouth every six hoursAcetaminophen Discontinued 1000 MG PO Q6H March 24, 2021 12:00am July 09, 2021 5:32pmbusPIRone hydrochloride 10 mg oral tablet (20 sources)Start: 10-06-2023 End: 91-84-0187jqpz 1 tablet by mouth twice dailyBuspirone 10 mg tablet Discontinued 10 MG PO Twice daily 180 90 October 06, 2023 3:08pm January 23, 2024 10:06amStart: 61-55-5637fudd 1 tablet by mouth every twelve hoursbusPIRone HCl 5 MG 1 tablet Orally Twice a day for 30 days December, Activecephalexin 500 mg oral capsule (3 sources)Cephalosporin AntibacterialStart: 09-03-2024 End: 79-48-4583hsmv 1 capsule by mouth in the morning, then take 1 capsule by mouth in the evening, then take 1 capsule by mouth at bedtimecephalexin (Keflex) 500 MG capsule Indications: Mastitis Take 1 capsule (500 mg) by mouth in the mor vish and 1 capsule (500 mg) in the evening and 1 capsule (500 mg) before bedtime. Do all this for 7days. 21 capsule 09/03/2024 09/09/2024 Discontinued docusate sodium 100 mg oral capsule (5 sources)Start: 03-24-2021 End: 52-09-3651wjpp 1 capsule by mouth once daily at bedtimeDocusate Sodium (Colace) 100 mg capsule Discontinued 100 MG PO Daily at bedtime March 24, 2021 12:00am July 09, 2021 5:32pmdrospirenone 4 mg oral tablet (7 sources)ProgestinStart: 09-09-2024 End: 55-31-1976dqfx 1 tablet by mouth once dailyDrospirenone (Slynd) 4 MG tablet Indications: control counseling Take 1 tablet by mouth Daily84 tablet 3 09/09/2024 12/20/2024 Discontinued (Therapy completed)ibuprofen 600 mg oral tablet (7 sources)Nonsteroidal Anti-inflammatory DrugStart: 03-24-2021 End: 73-49-0967cgun 1 tablet by mouth every six hoursIbuprofen 600 mg Tablet Discontinued 600 MG PO Q6H 60 March 24, 2021 12:00am July 09, 2021 5 :32pmlabetalol hydrochloride 200 mg oral tablet (20 sources)beta-Adrenergic BlockerStart: 07-09-2021 End: 54-33-3339Zomsvvzjb 200 mg tablet Discontinued 100 MG PO Daily July 09, 2021 5:45pm October 06, 2023 2:40pmStart: 07-09-2021 End: 33-12-9478raux 100 mg by mouth once dailyLabetalol Discontinued 100 MG PO Daily July 09, 2021 5:45pm October 06, 2023 2:40pmStart: 03-25-2021 End: 32-30-9946xobx 1 tablet by mouth twice dailyLabetalol 200 mg tablet Discontinued 200 MG PO Twice daily March 25, 2021 12:00am July 09, 2021 5:32pmStart: 03-01-2021 End: 80-98-3184Bprwdzfbs 200 mg Tablet Discontinued 300 MG PO Three times daily March 01, 2021 12:00am March 25, 2021 12:14pmStart: 03-01-2021 End: 07-13-4208lxky 300 mg by mouth three times dailyLabetalol Discontinued 300 MG PO Three times daily March 01, 2021 12:00am March 25, 2021 12:14pmtake 1 tablet by mouth every twenty-four hoursLabetalol HCl 100 MG 1 tablet Orally Once Daily for 90 day(s) Activelevonorgestrel 0.852574 mg/hr intrauterine system (10 sources)Progestin, Progestin-containing Intrauterine DeviceStart: 04-01-2024 End: 40-96-2245Dpqjolehwmsozk intrauterine device 52 mgmeclizine hydrochloride 25 mg oral tablet (4 sources)AntiemeticStart: 06-21-2024 End: 72-57-8574olpp 1 tablet by mouth twice daily as neededMeclizine 25 mg tablet Discontinued 25 MG PO Twice daily as needed for motion sickness June 21, 2024 1:00am December 07, 2024 8:15amphentermine hydrochloride 37.5 mg oral tablet (20 sources)Sympathomimetic Amine AnorecticStart: 07-15-2024 End: 39-27-1612oecm 1 tablet by mouth once daily 30 minutes after breakfast Phentermine (Adipex-P) 37.5 mg tablet Discontinued 37.5 MG PO Daily December 07, 2024 12:00am January 25, 2025 1:30pm must administer 30 minutes before or 1-2 hours after breakfastPrenatal Vit 79-Fcut-Gyziz-Dha ( + Dha) 28 mg iron- 975 mcg-200 mg Combo Pack (5 sources)Start: 01-10-2021 End: 33-28-9318Ulqxouai Vit 70-Bvkf-Idnoy-Dha ( + Dha) 28 mg iron- 975 mcg-200 mg Combo Pack Discontinued 1 PO January 10, 2021 12:00am July 09, 2021 5:32pmtraMADol hydrochloride 50 mg oral tablet (5 sources)Opioid AgonistStart: 08-27-2021 End: 40-33-6416mlcp 0.5-1 tablets by mouth every six hours as needed for pain Tramadol (Ultram) 50 mg tablet Discontinued 50 MG PO Q6H as needed for pain 30 August 2721:00am October 06, 2023 2:41pm 08/05 - 1 tab po q 6 hours prn painTurmeric extract (6 sources) End: 94-41-0079Ziuwgegh (QC Tumeric Complex) 500 MG capsule 06/14/2024 DiscontinuedTurmeric (QC Tumeric Complex) 500 MG capsule Active Problems Active Problems Problem ClassificationProblemDateDocumented DateEpisodic/ChronicAnxiety disorders (20 sources)Anxiety; Translations: [Anxiety disorder, unspecified]Onset: 02-19-2025 Resolved: 65-89-2310KxmuldjWemzixg tract disease (20 sources)Cholecystitis, unspecified; Translations: [Cholelithiasis without obstruction]Onset: 07-26-2021 Resolved: 79-77-0284OsrprgvpHsemxrr on above:Problem List clean-up per request of Phys. EHR CmteCancer; other and unspecified primary (1 source)History of benign phyllodes neoplasm of breast; Translations: [Personal history of other benign neoplasm]35-11-7936VjsbzflgSughptnkv hypertension (20 sources)Essential hypertension; Translations: [Essential (primary) hypertension]Onset: 06-05-2021 Resolved: 64-72-9536WicgwtsXmrwnbhq; including migraine (20 sources)Migraine; Translations: [Other migraine, not intractable, without status migrainosus]Onset: 02-19-2025 Resolved: 33-61-7891SlaoczlPpbklaqrkzzf complicating ; childbirth and the puerperium (15 sources)-induced hypertension; Translations: [Gestational [-induced] hypertension withoutsignificant proteinuria, unspecified trimester]Onset: 02-19-2025 Resolved: 194195-57-2744LpqjjyjnCfzugnc on above:Problem List clean-up per request of Phys. EHR CmteImmunizations and screening for infectious disease (11 sources)Contact with and (suspected) exposure to other viral communicable diseases; Translations: [Contact with and (suspected) exposure to other viral communicable diseases]Onset: 08-08-2021 Resolved: 30-45-5003IyhmkynhOwjlmsz and fatigue (2 sources)Fatigue; Translations: [Other fatigue]17-47-6628JkygotlwWwhn disorders (8 sources)Moderate major depression, single episode; Translations: [Major depressive disorder, single episode, moderate]ChronicMycoses (16 sources)Candidal intertrigo; Translations: [Candidiasis of skin and nail] Onset: 02-19-2025 Resolved: 697996-09-8012DcwjaigkZsfsgdita of unspecified nature or uncertain behavior (3 sources)Phyllodes tumor of breast; 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 unspecified breast]Onset: 352681-32-2332FbmxfqbjEqtez and unspecified benign neoplasm (1 source)Fibroadenoma of left breast; Translations: [Benign neoplasm of left breast]32-23-7029XqdwryrhNxbra circulatory disease (4 sources)Elevated blood-pressure reading, without diagnosis of hypertension; Translations: [ELEVATED BP READING W/O DX HTN]Onset: 01-40-3519UsntjakxCbpme injuries and conditions due to external causes (14 sources)Motion sickness; Translations: [Motion sickness, initial encounter] Onset: 02-19-2025 Resolved: 122462-71-8983XaxnrhdpAactu nutritional; endocrine; and metabolic disorders (20 sources)Body mass index 30+ - obesity; Translations: [Body mass index (BMI) 39.0-39.9, adult]Onset: 02-19-2025 Resolved: 654909-01-0208BsatcldNpqdn nutritional; endocrine; and metabolic disorders (15 sources)Hyperbilirubinemia; Translations: [Other disorders of bilirubin metabolism]Onset: 02-19-2025 Resolved: 572981-49-8437RoiynupTybxngw on above:Problem List clean-up per request of Phys. EHR CmteOther nutritional; endocrine; and metabolic disorders (1 source)Weight increased; Translations: [Abnormal weight gain]08-12-2024 EpisodicOther and delivery including normal (15 sources)Mother delivered; Translations: [Encounter for full-term uncomplicated delivery]Onset: 02-19-2025 Resolved: 465516-10-1551LjeflsdhTiusktx on above:Problem List clean-up per request of Phys. EHR CmteOther screening for suspected conditions (not mental disorders or infectious disease) (20 sources)Encounter for screening for lipoid disorders; Translations: [Encounter for screening for other metabolic disorders]Onset: 05-23-2020 Resolved: 784608-91-4871NpldvpsvHbgipfh on above:Problem List clean-up per request of Phys. EHR CmteOther skin disorders (1 source)Localized swelling, mass and lump, right upper limb; Translations: [Localized swelling, mass and lump, right upper limb]Onset: 40-69-4191Yemwptah Other skin disorders (2 sources)Loss of hair; Translations: [Nonscarring hair loss, unspecified] 62-97-1148TvnpkpifMflwm upper respiratory infections (15 sources)Acute upper respiratory infection, unspecified; Translations: [Sore throat symptom]Onset: 16-06-4299HeedxldzTyntid media and related conditions (3 sources)Acute suppurative otitis media without spontaneous rupture of ear drum, right ear; Translations: [Otitis media, unspecified, right ear]Onset: 08-03-2019 Resolved: 26-99-0415HhmbbzqtTzeuetlpzg disorders (not diabetes) (15 sources)Gallstone pancreatitis; Translations: [Biliary acute pancreatitis without necrosis or infection]Onset: 02-19-2025 Resolved: 704389-55-5340ZtqjnarhTlkekvb on above:Problem List clean-up per request of Phys. EHR CmteResidual codes; unclassified (1 source)Localized edemaEpisodicResidual codes; unclassified (20 sources)Patient encounter status; Translations: [Procedure and treatment not carried out due to patient leaving prior to being seen by health care provider] Onset: 254066-75-8745GcxgpeilNtlxzab on above:Problem List clean-up per request of Phys. EHR CmteResidual codes; unclassified (1 source)Family history of malignant neoplasm of ovary in first degree relative; Translations: [Family history of malignant neoplasm of ovary] 43-68-4270IuztydxzMkmcnbne codes; unclassified (16 sources)Family history of disorder; Translations: [Family history of other endocrine, nutritional and metabolic diseases]Onset: 02-19-2025 Resolved: 317482-50-1633MpomeddjJercldy disorders (2 sources)Thyroid dysfunction; Translations: [Disorder of thyroid, unspecified] 78-96-8130FlyxyvhpAfwitcuwpyqk (2 sources)R79.89 - Other specified abnormal findings of blood chemistry Unclassified (1 source)E04.1 - Nontoxic single thyroid noduleUrinary tract infections (15 sources)Urinary tract infectious disease; Translations: [Urinary tract infection, site not specified]Onset: 02-19-2025 Resolved: 845251-91-0246MxvtsqwtRcfbbdh on above:Problem List clean-up per request of Phys. EHR Cmte Past or Other Problems Problem ClassificationProblemDateDocumented DateEpisodic/ChronicAbdominal pain (20 sources)Lower abdominal pain, unspecified; Translations: [Pain in female pelvis]Onset: 07-26-2021 Resolved: 20-36-3576GgzfiegvKfixhuhsommpa and procreative management (20 sources)Encounter for initial prescription of contraceptive pills; Translations: [Patient encounter status]Onset: 82-87-6338YmwaldttVduwxw and vomiting (1 source)Nausea with vomiting, unspecifiedOnset: 07-26-2021 Resolved: 49-57-3252SkcxoetrVvmohbmztmxw breast conditions (10 sources)Fibrocystic change of right breast; Translations: [Diffuse cystic mastopathy of right breast]Onset: 02-19-2025 Resolved: 494075-70-3929XjwiswlUnkqoaymlfrd breast conditions (20 sources)Inflammatory disorder of breast; Translations: [Mastitis without abscess]Onset: 844610-79-7419TrfiojqkCvwgg connective tissue disease (10 sources)Poor posture; Translations: [Abnormal posture]Onset: 02-19-2025 Resolved: 929032-36-2853XgdtqrrxPifek ear and sense organ disorders (1 source)Unspecified acute noninfective otitis externa, right earOnset: 11-04-2021 Resolved: 97-44-7944UbuiqolhKnndp liver diseases (1 source)Abnormal levels of other serum enzymesOnset: 07-26-2021 Resolved: 23-09-8476QeyqzjwgDncuh lower respiratory disease (3 sources)Cough; Translations: [COUGH]Onset: 95-40-4774QkhhrlodVbysd nutritional; endocrine; and metabolic disorders (12 sources)Obesity caused by energy imbalance; Translations: [Other obesity due to excess calories]Onset: 02-19-2025 Resolved: 332766-08-8195DimmukqAwbrhmx disorders (20 sources)Thyroid nodule; Translations: [Nontoxic single thyroid nodule]Onset: 02-19-2025 Resolved: 30-07-8500WxxxkovHbhwm infection (1 source)COVID-19Onset: 08-08-2021 Resolved: 08-08-2021 Results Test NameValueInterpretationReference RangeFacilityLaboratory - Chemistry and Chemistry - challengeOrdered By: Candice Marvin on 88-85-4817Dnnm T4 [Mass/Vol] 1.04 ng/dL0.76-1.46[facility] CenterTSH Qn0.956 m[IU]/L 0.358-3.740[facility] CenterNo Panel InformationOrdered By: Candice Marvin on 83-32-9580Zjrf Triiodothyronine2.37 pg/mL2.18-3.98[facility]opedic CenterLon 03-07-2025L Specimen: [id number] Received: 03/08/25 Status: EDI Enrique Num: [id number] Spec Type: Cytology Subm Dr: Jose Mcrae DO Tissues: A FNA SLIDES NOPATH (LT THYROID NODULE) Procedures: Cyto Int and Re, PAPSTN/10 Age/ Patient Sex Location Account Attending Physician Siva Weems / [place] [id number] Jose McraeDO SPEC NUM: [id number] RECD: 03/08/25 STATUS: EDI ENRIQUE NUM: [id number] EPYTON: 03/07/25 [facility] DR: Jose Mcrae DO ENTERED: 03/08/25 [facility] DR: SPEC TYPE: Cytology DEPT: DANIEL ENTERED BY: [id number] RECV BY: [id number] ORDERED: Cyto Int and Re, PAPSTN/10 ORDERED: Cyto Int and Re, PAPSTN/10 Pathological Diagnosis Left thyroid nodule, fine needle aspiration (ThinPrep and Smears Slides): - Suboptimal for evaluation due to scant cellularity. - Few benign appearance follicular cells and abundant watery colloid consistent with colloid nodule ([place] Category: II) - Negative for malignant cells. Clinical Information Left Thyroid Nodule Gross Description Received fixed in Cytolyt is 30 ml colorless clear fixed fluid for cytology said to have been obtained as Left Thyrod Nodule. ThinPrep preparations are prepared for microscopic examination. Also received are 9 smeared slides for pap and a Veracyte vial stored at -20 for microscopic examination. (/vt) Microscopic Description Microscopic examination is performed. Specimen: [id number] Received: 03/08/25 Status: EDI Boby Num: [id number] Spec Type: Cytology Subm Dr: Jose Mcrae DO Tissues: A FNA SLIDES JOSEPH (LT THYROID NODULE) Procedures: Cyto Int and Re, PAPSTN/10 Patient: DankSiva M [id number] (Continued) Specimen: [id number] Received: 03/08/25 (Continued) Signed (signature on file) Akshat Cox MD 03/09/25 0838 Specimen: [id number] Received: 03/08/25 Status: EDI Boby Num: [id number] Spec Type: Cytology Subm Dr: Jose Mcrae DO Tissues: A FNA SLIDES NOPATH (LT THYROID NODULE) Procedures: Cyto Int and Re, PAPSTN/10 Patient: DankSiva M [id number] (Continued) Specimen: [id number] Received: 03/08/25 (Continued) CPT Codes 23111, 05322 Specimen: [id number] Received: 03/08/25-1312 Status: EDI Boby Num: [id number] Spec Type: Cytology Subm Dr: Jose Mcrae DO Tissues: A FNA SLIDES NOPATH (LT THYROID NODULE) Procedures: Cyto Int and Re, PAPSTN/10 Patient: Dank,Siva Amaya [id number] (Continued) Signed (signature on file) Akshat Cox MD 03/09/25 0838Normal [facility] Physician GroupSerum or plasma thyroperoxidase antibody assay (units/volume)Ordered By: Jose Mcrae on 06-80-4702XDK Ab Qn9 [IU]/mL0-34 [facility]opedic CenterComment on above:Performed at: CB - [facility] [address] [id number] Director: Augustine Layton PhD, Phone: [phone] THYROXINE (T4)on 07-50-1216Z9 [Mass/Vol]11.6 ug/dL4.80 - 13.90 ug/dLNOMS HealthcareCLINISYNCNOMS HealthcareBasophils Auto (Bld) [#/Vol]on 08-76-8813Spibxzwrd (Bld) [#/Vol]0.0 10 3/uL0.0-0.1FAdena Pike Medical CenterBasophils/100 WBC Auto (Bld)on 89-50-8741Bxtnmvktl/100 WBC (Bld)0.4 % 0.2-2.0[facility]opedic CenterEosinophils/100 WBC Auto (Bld)on 20-84-3721Zcweylageya/100 WBC (Bld)4.7 %0.9-7.0[facility] Erythrocyte distribution width Auto (RBC) [Ratio]on 23-55-5407Fxpacfoqljq distribution width (RBC) [Ratio]13.2 %11.0-15.0[facility] Glucose mean value [Mass/volume] in Blood Estimated from glycated hemoglobinon 25-18-5254Euonvub glucose Estimated from glycated hemoglobin (Bld) [Mass/Vol]105 mg/dLCrystal Clinic Orthopedic CenterHematocrit Auto (Bld) [Volume fraction]on 46-28-9942Ruzdspozav (Bld) [Volume fraction]40.6 %36.0-48.0[facility] CenterHemoglobin A1c percentageon 71-69-5001CaO0c (Bld) [Mass fraction] 5.3 %4.5-6.2FAdena Pike Medical CenterComment on above:ADA RECOMMENDED LIMIT 4.0 - 6.0ADA THERAPEUTIC TARGET < 7.0ACTION SUGGESTED> 7.0Hemoglobin [Mass/volume] in Bloodon 22-95-5945Mepnricews (Bld) [Mass/Vol]13.8 g/dL12.0-16.0 [facility] CenterLaboratory - Chemistry and Chemistry - challengeon 48-98-4268Wxyr T4 [Mass/Vol]1.07 ng/dL0.76-1.46[facility]opedic CenterTSH Qn0.925 m[IU]/L0.358-3.740[facility]opedic CenterT4 [Mass/Vol]11.60 ug/dL4.80-13.90[facility] CenterLaboratory - Hematology and Cell countson 36-33-8839Ckrqoyqu granulocytes/100 WBC (Bld)0.3 % 0.0-0.5FAdena Pike Medical CenterLeukocytes [#/volume] corrected for nucleated erythrocytes in Blood by Automated counon 66-64-7928QTH corrected for nucl RBC Auto (Bld) [#/Vol]11.4 10 3/uLHigh4.0-11.0[facility] CenterLymphocytes Auto (Bld) [#/Vol]on 35-57-3503Uppctkjfxaf (Bld) [#/Vol]1.7 10 3/uL1.2-3.8[facility] CenterLymphocytes/100 WBC Auto (Bld)on 14-26-4588Zslcwkcjnak/100 WBC (Bld)15.2 %Low20.5-60.0[facility] HospitalH Auto (RBC) [Entitic mass]on 95-60-8137OBX (RBC) [Entitic mass]27.9 pg 26.7-34.0[facility]opedic CenterMCHC Auto (RBC) [Mass/Vol]on 64-23-5079CXGT (RBC) [Mass/Vol]34.0 g/dL29.9-35.2FAdena Pike Medical CenterMCV Auto (RBC) [Entitic vol]on 68-38-9358CTS (RBC) [Entitic vol]82.2 fL 81.0-99.0[facility] CenterMonocytes Auto (Bld) [#/Vol]on 92-82-3986Qqqsiumnl (Bld) [#/Vol]0.5 10 3/uL0.3-0.8[facility] CenterMonocytes/100 WBC Auto (Bld)on 02-75-2956Udpjpkjlz/100 WBC (Bld)4.1 % 1.7-12.0[facility] CenterNeutrophils Auto (Bld) [#/Vol]on 96-06-8306Jbqayvemxnv (Bld) [#/Vol]8.6 10 3/uLHigh1.4-6.5FAdena Pike Medical CenterNeutrophils/100 WBC Auto (Bld)on 86-50-5029Verkxzfeosw/100 WBC (Bld)75.3 %High43.0-75.0[facility] CenterNo Panel Information Ordered By: Magno Staley on 72-48-6491Npfhpolatjglrzovukuyyk (DHEA)243 ng/dL 31-701[facility]opedic CenterComment on above:This test was developed and its performance characteristicsdetermined by [place]. It has not been cl eared orapproved by the Food and Drug Administration.Performed at: [address] [id number] Director: Mandi Herrera MD, Phone: [phone] Pcnlhnc596.0 ug/dL84.8-378.0 [facility] CenterFollicle Stimulating Hormone2.6 mIU/mL. [facility] CenterComment on above:Adult Female Range Follicular phase 3.5 - 12.5 Ovulation phase 4.7 - 21.5 Luteal phase 1.7 - 7.7 Pos tmenopausal 25.8 - 134.8Total Xzqmoyxqxvpgenxj381 ng/tSGzmcvmiy28-981AyylvgkfkCrystal Clinic Orthopedic CenterComment on above:Performed at: [facility] [id number] Director: Augustine Layton PhD, Phone: [phone] Panel Informationon 77-13-3514Yexznzvcdte # (Auto)0.5 10 3/uL 0.0-0.7FAdena Pike Medical CenterFree Triiodothyronine3.04 pg/mL2.18-3.98 [facility] CenterHuman Chorionic Gonadotropin, Quant<1 mIU/mL [facility] CenterComment on above:5-50 0.2-1 SDIO07-923 1-2 AEOES127-4,000 2-3 SOIHG962-70,000 3-4 WEEKS1,000-50,000 4-5 WEEKS10,000-100,000 5-6 WEEKS15,000-200,000 6-8 WEEKS10,000-100,000 2-3 MONTHSImmature Granulocyte # (Auto)0.03 10 3/uL0.00-0.03[facility] Orthopedic CenterPlatelet mean volume Auto (Bld) [Entitic vol]on 27-38-7452Cxffxcqu mean volume (Bld) [Entitic vol]8.9 fLLow9.5-13.5FAdena Pike Medical CenterPlatelets Auto (Bld) [#/Vol]on 79-57-8679Zmfihcqis (Bld) [#/Vol]363 10 3/tP550-872FufvmyhjxCrystal Clinic Orthopedic CenterRBC Auto (Bld) [#/Vol]on 92-47-9023WNA (Bld) [#/Vol]4.94 10 6/uL 4.20-5.40[facility] Medical Centererum or plasma lutropin measurement (units/volume)Ordered By: Magno Staley on 53-83-9449Qlhrbdgr Qn4.4 m[IU]/mL. [facility] CenterComment on above:Adult Female Range Follicular phase 2.4 - 12.6 Ovulation phase 14.0 - 95.6 Luteal phase 1.0 - 11.4 P ostmenopausal 7.7 - 58.5Performed at: - [facility] [id number] Director: Augustine Layton PhD, Phone: [phone] PELVIS TRANSVAGINALon 58-96-1390KdqJ[place] [address] Ultrasound Report Signed Patient: SIVA WEEMS MR#: [id number] : 1995 Acct:[id number] Age/Sex: 29 / F ADM Date: 01/17/25 Loc: US Attending Dr: Magno Staley D.O. Ordering Physician: Magno Staley D.O. Date of Service: 01/17/25 Procedure(s): US pelvis transvaginal Accession Number(s): [id number] cc: Magno Staley D.O.; INDY GILBERT The [address] [address] Patient Name: SIVA WEEMS MRN: [id number] date: 1995 Sex: F Assigned Patient Location: US Current Patient Location: US Accession/Order Number: [id number] Exam Date: 01/17/2025 07:59 Report Date: 01/17/2025 [...] Elias M.D. 01/17/2025 8:02 AM Dictation Location: [place] [address] Electronically authenticated by: [id number] Y Date: 01/17/2025 08:02 Dictated By: Rachel Elias M.D. Signed By: 01/17/25804 DD/ 1 TD/TT: Poultry Pinner:ALPHONSEHRadiology, Radiologist, - 01/17/2025 The [place] [id number] Ultrasound Report Signed Patient: SIVA WEEMS MR#: [id number] : 1995 Acct:[id number] Age/Sex: 29 / F ADM Date: 01/17/25 Loc: US Attending Dr: Magno Staley D.O. Ordering Physician: Magno Staley D.O. Date of Service: 01/17/25 Procedure(s): US pelvis transvaginal Accession Number(s): [id number] cc: Magno Staley D.O.; INDY GILBERT [place] [id number] Patient Name: SIVA WEEMS MRN: [id number] date: 1995 Sex: F Assigned Patient Location: US Current Patient Location: US Accession/Order Number: [id number] Exam Date: 01/17/2025 07:59 Report Date: 01/17/2025 [...] Elias M.D. 01/17/2025 8:02 AM Dictation Location: [place] [address] Electronically authenticated by: [id number] Y Date: 01/17/2025 08:02 Dictated By: Rachel Elias M.D. Signed By: 01/17/25804 DD/ 1 TD/TT: Poultry Pinner: WILLIAM HealthcareRadiology Study observation (narrative)NOMS HealthcareUS PELVIS TRANSVAGINALOrdered By: Radiologist Radiology on 72-45-6578HEWKSullivan County Memorial Hospital Work Phone: cBC WITH AUTO DIFFERENTIALon 33-61-5260CPEBLYLTO ABSOLUTE COUNT (10*3/UL) BY AUTOMATED COUNT0.0 10*3/uLCleveland Clinic South Pointe HospitalCompromedica charles and virgin[facility] hospital on above:Performed By: #### CBCA #### [facility] ([facility]) [address] [place] [address] VIRBASOPHILS RELATIVE PERCENT BY AUTOMATED COUNT0.4 %Normal [facility] HospitalCompromedica char[facility] on above:Performed By: #### CBCA #### [facility] ([facility]) [address] [place] [address] VIRCELLAVISION DIFFERENTIAL TYPEAUTOMATED DIFFERENTIALNoal [facility] HospitalCompromedica [facility] on above:Performed By: #### CBCA #### [facility] ([facility]) [address] [place] [address] VIREosinophils (Bld) [#/Vol]0.5 10*3/uLCleveland Clinic South Pointe HospitalCompromedica [facility] on above:Performed By: #### CBCA #### [facility] ([facility]) [address] [place] [address] VIREOSINOPHILS RELATIVE PERCENT BY AUTOMATED COUNT4.9 %Normal [facility] HospitalCompromedica char[facility] on above:Performed By: #### CBCA #### [facility] ([facility]) [address] [place] [address] VIRErythrocyte distribution width (RBC) [Ratio]14.3 %Normal 11.5-15ProMedica South Milwaukee HospitalComment on above:Performed By: #### CBCA #### [facility] ([facility]) [address] [place] [address] VIRHematocrit (Bld) [Volume fraction]41.7 %Cylgjp41-75HggAxzgizBaylor Scott & White Medical Center – WaxahachieComment on above:Performed By: #### CBCA #### [facility] ([facility]) [address] [place] [address] VIRHemoglobin (Bld) [Mass/Vol]13.9 g/pRFopbsf55.7-15.5PKettering Health HamiltonComment on above:Performed By: #### CBCA #### [facility] ([facility]) [address] [place] [address] VIRLYMPHOCYTES ABSOLUTE COUNT (10*3/UL) BY AUTOMATED COUNT2.0 10*3/uLNoalMiddletown HospitalComment on above:Performed By: #### CBCA #### [facility] ([facility]) [address] [place] [address] VIRLYMPHOCYTES RELATIVE PERCENT BY AUTOMATED COUNT21.5 %Normal [facility] HospitalComment on above:Performed By: #### CBCA #### [facility] ([facility]) [address] [place] [address] VIRMCH (RBC) [Entitic mass]27.4 tfJgvhgq38-31XwoYkhbgpBaylor Scott & White Medical Center – WaxahachieComment on above:Performed By: #### CBCA #### [facility] ([facility]) [address] [place] [address] VIRMCHC (RBC) [Mass/Vol]33.2 g/sNYxsili18-45IesEatackBaylor Scott & White Medical Center – WaxahachieComment on above:Performed By: #### CBCA #### [facility] ([facility]) [address] [place] [address] VIRMCV (RBC) [Entitic vol]83 cEQpuaeh15-745WbvWudopp South Milwaukee HospitalComment on above:Performed By: #### CBCA #### [facility] ([facility]) [address] [place] [address] VIRMONOCYTES ABSOLUTE COUNT (10*3/UL) BY AUTOMATED COUNT0.4 10*3/uLNormalMiddletown HospitalComment on above:Performed By: #### CBCA #### [facility] ([facility]) [address] [place] [address] VIRMONOCYTES RELATIVE PERCENT BY AUTOMATED COUNT4.4 %Normal [facility] HospitalCompromedica charles [facility] hospital on above:Performed By: #### CBCA #### [facility] ([facility]) [address] [place] [address] VIRNEUTROPHILS ABSOLUTE COUNT BY AUTOMATED COUNT6.3 10*3/uL NormalMiddletown HospitalCompromedica charles and virginia hickman hospital on above:Performed By: #### CBCA #### [facility] ([facility]) [address] [place] [address] VIRNEUTROPHILS RELATIVE PERCENT BY AUTOMATED COUNT68.8 %Normal [facility] HospitalCompromedica charles and virgin[facility]ick[facility] hospital on above:Performed By: #### CBCA #### [facility] ([facility]) [address] [place] [address] VIRPlatelet mean volume (Bld) [Entitic vol]7.5 fLNormal7-12 [facility] HospitalCompromedica charles and virgin[facility] hick[facility] hospital on above:Performed By: #### CBCA #### [facility] ([facility]) [address] [place] [address] VIRPlatelets (Bld) [#/Vol]292 10*3/dEDenlad234-883VdsCmnafsMiddletown HospitalComment on above:Performed By: #### CBCA #### [facility] ([facility]) [address] [place] [address] VIRRBC COUNT5.05 X10E12/LNormal3.8-5.2ProMedica Sharp [facility] Bir[facility] Hospital For WomenComment on above:Performed By: #### CBCA #### [facility] ([facility]) [address] [place] [address] VIRWBC (Bld) [#/Vol]9.2 10*3/uLNormal4-11M[facility] HospitalComment on above:Performed By: #### CBCA #### [facility] ([facility]) [address] [place] [address] VIRCOMPREHENSIVE METABOLIC PANELon 86-84-9848Biqrdmm [Mass/Vol] 4.5 g/dLNormal3.2-5.3PKettering Health HamiltonComment on above:Performed By: #### CMP #### [facility] ([facility]) [address] [place] [address] VIRALP [Catalytic activity/Vol]80 U/HZkwjit62-899BirAxwdvrMiddletown HospitalComment on above:Performed By: #### CMP #### [facility] ([facility]) [address] [place] [address] VIRALT [Catalytic activity/Vol]17 U/LNormal<=31PKettering Health HamiltonComment on above:Performed By: #### CMP #### [facility] ([facility]) [address] [place] [address] VIRAnion gap [Moles/Vol]10 mmol/LNormal5-15ProBaylor Scott & White Medical Center – WaxahachieComment on above:Performed By: #### CMP #### [facility] ([facility]) [address] [place] [address] VIRAST [Catalytic activity/Vol]22 U/LNormal<=41ProBaylor Scott & White Medical Center – WaxahachieComment on above:Performed By: #### CMP #### [facility] ([facility]) [address] [place] [address] VIRBilirubin [Mass/Vol]0.4 mg/dLNormal0.3-1.2PKettering Health HamiltonComment on above:Performed By: #### CMP #### [facility] ([facility]) [address] [place] [address] VIRCalcium [Mass/Vol]9.4 mg/dLNormal8.5-10.5PKettering Health HamiltonComment on above:Performed By: #### CMP #### [facility] ([facility]) [address] [place] [address] VIRChloride [Moles/Vol]103 mmol/FOfsgwc44-997NgkHfptenBaylor Scott & White Medical Center – WaxahachieComment on above:Performed By: #### CMP #### [facility] ([facility]) [address] [place] [address] VIRCO2 [Moles/Vol]25 mmol/HMeblqi97-41TekNmfvrhKettering Health HamiltonComment on above:Performed By: #### CMP #### [facility] ([facility]) [address] [place] [address] VIRCreatinine [Mass/Vol]0.78 mg/dLNormal0.40-1.00ProBaylor Scott & White Medical Center – WaxahachieComment on above:Result Comment: METHOD TRACEABLE TO IDMS STANDARDPerformed By: #### CMP #### [facility] ([facility]) [address] [place] [address] VIREGFR (CKD-EPI) NON-RACE DEPENDENT>^90Normal>=60ProBaylor Scott & White Medical Center – WaxahachieComment on above:Result Comment: Reported eGFR is based on the CKD-EPI 2020 equation that does not use a race coefficient.Performed By: #### CMP #### [facility] ([facility]) [address] [place] [address] VIRGlucose [Mass/Vol]83 mg/eSYgobpj93-18IrcVjodreBaylor Scott & White Medical Center – WaxahachieComment on above:Performed By: #### CMP #### [facility] ([facility]) [address] [place] [address] VIRPotassium [Moles/Vol]4.6 mmol/LNormal3.5-5.0Middletown HospitalComment on above:Performed By: #### CMP #### [facility] ([facility]) [address] [place] [address] VIRProtein [Mass/Vol]8.1 g/dLHigh6.0-8.0M[facility]letown HospitalComment on above:Performed By: #### CMP #### [facility] ([facility]) [address] [place] [address] VIRSodium [Moles/Vol]138 mmol/XPcqotg283-523BjdWrxohz [facility]remont HospitalComment on above:Performed By: #### CMP #### [facility] ([facility]) [address] [place] [address] VIRUrea nitrogen [Mass/Vol]15 mg/dLNormal5-23ProBaylor Scott & White Medical Center – WaxahachieComment on above:Performed By: #### CMP #### [facility] ([facility]) [address] [place] [address] VIRLIPID PROFILEon 88-88-8937Nakbelzdtew [Mass/Vol]144 mg/dLLow 150-200ProBaylor Scott & White Medical Center – WaxahachieComment on above:Performed By: #### LIPR #### [facility] ([facility]) [address] [place] [address] VIRCholesterol in HDL [Mass/Vol]43 mg/dLNormal>39ProBaylor Scott & White Medical Center – WaxahachieComment on above:Result Comment: HDL <40 mg/dL - High Risk HDL > or = 40mg/dL- Desirable HDL >60 mg/dL - Negative RiskPerformed By: #### LIPR #### [facility] ([facility]) [address] [place] [address] VIRCholesterol in LDL [Mass/Vol]74 mg/dLNormal<130ProBaylor Scott & White Medical Center – WaxahachieComment on above:Result Comment: LDL <100 mg/dL - Desirable LDL >160 mg/dL - High RiskPerformed By: #### LIPR #### [facility] ([facility]) [address] [place] [address] VIRCHOLESTEROL:HDL3.4Jlxznj7.0-5.0[facility] Comment on above:Performed By: #### LIPR #### [facility] ([facility]) [address] [place] [address] VIRTriglyceride [Mass/Vol]133 mg/bVOajlzv66-607CrvSixkno [facility]remont HospitalComment on above:Performed By: #### LIPR #### [facility] ([facility]) [address] [place] [address] VIRVERY LOW CXACESTTVEG37 mg/dLNormal0-30ProBaylor Scott & White Medical Center – WaxahachieComment on above:Performed By: #### LIPR #### [facility] ([facility]) [address] [place] [address] VIRIGP,APTIMA HPV,AGE GDLNon 48-07-8380RRF GDLN ACOG TESTING Note.NOMS HealthcareComment on above:TESTS RESULT FLAG UNITS REF RANGE LAB Clinician Provided Cytology Information Source.............Cervix;Endocervix No. of containers..01 ThinPrep Vial Age Algo ACOG Shannon... FLAG LEGEND: L-Low Normal,H-High Normal,LL-Alert Low,HH-Alert High <-Panic Low,>-Panic High,A-Abnormal,AA-Critical Abnormal Performed at: 01 =[address] [place] [address] Debbie Capps MD, HPV APTIMANegativeNegativeNOMS HealthcareComment on above:This nucleic acid amplification test detects fourteen high- risk HPV types (16,18,31,33,35,39,45,51,52,56,58,59,66,68) without differentiation. Performed at: =[address], [place] [id number] Manager Car: Debbie Capps MD, Phone: [phone] Performed at: [address] [id number] Manager Car: Debbie Capps MD, Phone: [phone] IGP, APTIMA HPV, RFX 16/18,45Note.NOMS HealthcareComment on above:TESTS RESULT FLAG UNITS REF RANGE LAB DIAGNOSIS: 02 NEGATIVE FOR INTRAEPITHELIAL LESION OR MALIGNANCY. CELLULAR CHANGES ASSOCIATED WITH INFLAMMATION ARE PRESENT. THIS SPECIMEN WAS RESCREENED PART OF OUR DAY [employer]PA MANAGER PROGRAM. Specimen adequacy: 02 Satisfactory for evaluation. Endocervical and/or squamous metaplastic cells (endocervical component) are present. Performed by: 03 Ana Luisa Basilio, Commercial Loan Processor (ASCP) QC reviewed by: 02 Erin Shah, Supervisory Commercial Loan Processor (ASCP) . 02 Note: Note 02 The [...] High,A-Abnormal,AA-Critical Abnormal Performed at: [address] [facility] [address] [address] Debbie Capps MD, 03 KWCYT [facility] [place] [address] [address] [place] [address] Cecil Scott MD, BRUSH-SPATULA CERVIX ENDOCERVIX CLINISYNCNOMS HealthcareMAMM POST BX DIAG UNI LTon 30-23-8439ERHN POST BX DIAG UNI LTMAMM POST BX DIAG UNI LT *ADDENDUM*Addendum issued [...] Laila Nichole MD on 10/07/2024 3:01 PM 100NormalProMedica Menahga HospitalUS BX BREAST US GUID INITIAL LTon 02-78-4081EC BX BREAST US GUID INITIAL LTUS BX BREAST US GUID INITIAL LT *ADDENDUM*Addendum [...] Laila Nichole MD on 10/07/2024 3:01 PM 100NoZanesville City Hospitalurgical Pathologyon 47-22-9763Rhxpaqsr PathologyNoKindred Hospital LimaComment on above:Result Comment: [facility] [address] [place] [address] Surgical Pathology Consultation Patient Name:SIVA WEEMS:1995 (Age: 28)Gender:FTaken:10/04/2024Reported:10/07/2024Physician(s):Magno Staley DO ([phone])Copy To:Laila Nichole MD [facility] CENTERMARLON MalhotraBANNER THUNDERBIRD MEDICAL CENTERAccession #:[id number]. Rec. #:[id number]: #[id number] Final Pathologic Diagnosis Left breast,6 o'clock, 3 cmfn, mass, biopsy: BENIGN: Fibroadenoma Report Electronically Signed Out yomik/10/07/2024Melonie Lundberg MD Interpret[place] [address], License number: [id number]. Clinical History Biopsy procedure: Ultrasound; Target: Mass; [...] minutes Time in formalin before processin hours (2,ns,[id number], m8.1) SW sxw/10/04/2024NSK Specimen(s) Received Left breast Fee Codes(s): 1; [id number] DIAGNOSTIC BILATERAL W CADon [id number] DIAGNOSTIC BILATERAL W CADMAMM DIAGNOSTIC BILATERAL W CAD SIVA WEEMS 1995 [id number], [id number], [id number] EXAM: MAMM DIAGNOSTIC BILATERAL W CAD, US [...] MD on 09/29/2024 9:23 AM 4 c BIOPSYNormalProMedica Menahga HospitalUS AXILLA (BREAST) RT LIMITEDon 09-29-2024 US AXILLA (BREAST) RT LIMITEDUS AXILLA (BREAST) RT LIMITED SIVALETICIA NEVILLE DANK 1995 [id number], [id number], [id number] EXAM: MAMM DIAGNOSTIC BILATERAL W CAD, US [...] MD on 09/29/2024 9:23 AM 4 c BIOPSYNormalProMedica [facility] BREAST LT LIMITEDon [id number] BREAST LT LIMITEDUS BREAST LT LIMITED SIVA WEEMS 1995 [id number], [id number], [id number] EXAM: MAMM DIAGNOSTIC BILATERAL W CAD, US [...] family medical history was used calculate their Lukeer-Gabrielzick lifetime risk of malignancy. Scores less than 20% are not considered high risk per ACR guidelines and patient should continue with the above recommendation. Patient was given the results before leaving the department. Finalized by Yogi Napier MD on 09/29/2024 9:23 AM 4 c BIOPSYNormalProMedica Firelands [facility] Medical Center South CampusHCG ( test) Ql (U)on 04-01-2024 Interpretation and review of laboratory resultsNoWellSpan Ephrata Community HospitalPreg Test, UrNegativeHighlands-Cashiers HospitalIUD Insertionon 30-92-2238Qfaqjiftikhar De Leon LPN 04/02/2024 3:31 PM IUD [...] Patient will follow up after next period: yesHighlands-C[facility]iers [facility] COVID/FLU/RSV RT-PCRon 40-57-9960XYZX-CoV-2 (COVID-19) RNA IZZY+probe Ql (Unsp spec)NegativeFanFueled Other COVID/FLU/RSV RT-PCRNegativeFanFueled Other COVID/FLU RT-PCRon 45-34-2470EDNB-CoV-2 (COVID-19) RNA IZZY+probe Ql (Unsp spec)NegativeFanFueled Other COVID/FLU RT-PCRNegativeSkip Hop Other COVID Quick Testingon 29-06-5401UjmttkIbnqvegvSjthn Coast Erly Other Quick Fluon 50-77-2732RBPPK Ab CF (S) [Titer]Negative [facility] Erly Other FLUBV Ab CF (S) [Titer]NegativeSwed[facility] Erly Other COVID Quick Testingon 17-75-5862XdxdhiBpntjdnoQhpbc Circl Other Coding Summaryon 55-22-8437Yaooys SummaryJORDAN VALLEY MEDICAL CENTERBase 64 GasqctioWRz1jFw+PGhlYWQ+DW8ZWSVqP18peKGhvG9AV7rXMH8WRLBFLHTGYO3XMJ6hpYI4JHmmY8Lw biAv [file] IGN (more content not included)...[facility] HospitalProvider Orderson 66-32-1787Lykvfdvh [id number]#1.00OTGTIFF [facility] Charles HospitalHepatic Function Panel Standardon 87-02-3493Ccuxcrk [Mass/Vol]4.4 g/dLNormal3.5-5.0[facility] HospitalComment on above:Performed By: #### [id number] #### [facility] (DEFAULT) [address] [place] [address] 69362Rgoqhsl/Globulin [Mass ratio]1.0 {ratio}Low1.4-2.6M[facility] HospitalComment on above:Performed By: #### [id number] #### [facility] (DEFAULT) [address] [place] [address] 00186Vzs Eykk724 IU/IGnif39-52Vhjcuelk HospitalComment on above:Performed By: #### [id number] #### [facility] (DEFAULT) [address] [place] [address] 52979VHR [Catalytic activity/Vol]369.0 U/LHigh14.0-54.0[facility] HospitalComment on above:Performed By: #### [id number] #### [facility] (DEFAULT) [address] [place] [address] 34892BNX [Catalytic activity/Vol]215 U/HWwss25-38Jcpqhrzi HospitalComment on above:Performed By: #### [id number] #### [facility] (DEFAULT) [address] [place] [address] 73034Myro Direct0.30 mg/dLNormal0.10-0.50[facility] Comment on above:Performed By: #### [id number] #### [facility] (DEFAULT) [address] [place] [address] 61051Azim Indirect0.8 mg/dLNormal0.2-0.8[facility] Comment on above:Performed By: #### [id number] #### [facility] (DEFAULT) [address] [place] [address] 72037Zacg Total1.1 mg/dLNormal0.3-1.2M[facility] HospitalComment on above:Performed By: #### [id number] #### [facility] (DEFAULT) [address] [place] [address] 54656Xhcgfylr (S) [Mass/Vol]4.2 g/dLNormal1.5-4.3MRegency Hospital Cleveland EastComment on above:Performed By: #### [id number] #### [facility] (DEFAULT) [address] [place] [address] 33608Thpkgdf [Mass/Vol]8.6 g/dLHigh6.5-8.1MRegency Hospital [facility] Comment on above:Performed By: #### [id number] #### [facility] (DEFAULT) [address] [place] [address] 34159QVV AUTO DIFFon 09-37-8377Vqtgnyzvx (Bld) [#/Vol]0.1 103/ulNormal0.0-0.1Summa HealthComment on above:Performed By: #### CBC #### [facility] [address], [place] [address] Ines KarenBasophils/100 WBC (Bld)0.6 %Normal0.2-2.0The [facility] Comment on above:Performed By: #### CBC #### [facility] [address] [place] [address] Ines KarenEosinophils (Bld) [#/Vol]0.2 103/ulNormal0.0-0.7The [place] HospitalComment on above:Performed By: #### CBC #### [facility] [address] [place] [address] Ines KarenEosinophils/100 WBC (Bld)2.6 %Normal0.9-7.0The [facility] Comment on above:Performed By: #### CBC #### [facility] [address] [place] [address] Ines KarenErythrocyte distribution width (RBC) [Ratio]12.9 %Jihsqd19.0-15.0The [place] HospitalComment on above:Performed By: #### CBC #### [facility] [address] [place] [address] Ines KarenHematocrit (Bld) [Volume fraction]41.3 %Ayqotq85.0-48.0The [place] HospitalComment on above:Performed By: #### CBC #### [facility] [address] [place] [address] Ines KarenHemoglobin (Bld) [Mass/Vol]13.8 g/xIEresln50.0-16.0The [place] HospitalComment on above:Performed By: #### CBC #### [facility] [address] [place] [address] Ines KarenIG #0.02 10e3/ulNormal0.00-0.03The [place] [facility] HospitalComment on above:Performed By: #### CBC #### [facility] [address] [place] [address] Ines KarenIG %0.2 %Normal0.0-0.5The [place] HospitalComment on above: Performed By: #### CBC #### [facility] [address] [place] [address] Ines KarenLymphocytes (Bld) [#/Vol]2.1 103/ulNormal1.2-3.8The [place] HospitalComment on above:Performed By: #### CBC #### [facility] [address] [place] [address] Ines KarenLymphocytes/100 WBC (Bld)24.9 %Ljffes78.5-60.0[facility] Comment on above:Performed By: #### CBC #### [facility] [address] [place] [address] Ines KarenMANUAL DIFF REQNONormalThe [place] HospitalComment on above: Performed By: #### CBC #### [facility] [address] [place] [address] Ines KarenMCH (RBC) [Entitic mass]27.6 rbCyifxf16.7-34.0[facility] Comment on above:Performed By: #### CBC #### [facility] [address] [place] [address] Ines KarenMCHC (RBC) [Mass/Vol]33.4 g/hZEdaipy18.9-35.2[facility] Comment on above:Performed By: #### CBC #### [facility] [address] [place] [address] Ines KarenMCV (RBC) [Entitic vol]82.6 yLLutxkq11.0-99.0[facility] Comment on above:Performed By: #### CBC #### [facility] [address] [place] [address] Ines KarenMonocytes (Bld) [#/Vol]0.6 103/ulNormal0.3-0.8The [facility] Comment on above:Performed By: #### CBC #### [facility] [address] [place] [address] Ines KarenMonocytes/100 WBC (Bld)6.9 %Normal1.7-12.0[facility] Comment on above:Performed By: #### CBC #### [facility] [address] [place], [place] [address] Ines KarenNeutrophils (Bld) [#/Vol]5.5 103/ulNormal1.4-6.5The [place] HospitalComment on above:Performed By: #### CBC #### [facility] [address], [place] [address] Ines KarenNeutrophils/100 WBC (Bld)64.8 %Bhqfmn71.0-75.0[facility] Comment on above:Performed By: #### CBC #### [facility] [address] [place] [id number] Ines KarenPlatelet mean volume (Bld) [Entitic vol]8.9 fLCritically low9.5-13.5 The [place] HospitalComment on above:Performed By: #### CBC #### [facility] [address] [place], [place] [address] Ines KarenPlatelets (Bld) [#/Vol]360 103/ddDzbeqm125-500Ubh [facility] Comment on above:Performed By: #### CBC #### [facility] [address] [place], [place] [address] Ines KarenRBC (Bld) [#/Vol]5.00 106/ulNormal4.20-5.40The [facility] Comment on above:Performed By: #### CBC #### [facility] [address] [place], [place] [address] Ines KarenWBC (Bld) [#/Vol]8.4 103/ulNormal4.0-11.0The [facility] Comment on above:Performed By: #### CBC #### [facility] [address] [place], [place] [address] Ines KarenLIPID PROFILEon 67-78-4437DSXB-HDL RATIO NORMSEE [facility] HospitalComment on above:Result Comment: 3.3 - 4.4 LOW RISK 4.4 - 7.1 AVERAGE RISK 7.1 - 11.0 MODERATE RISK >11.0 HIGH RISKPerformed By: #### LIPID, CMP #### [facility] [address] [place], [place] [address] Ines KarenCholesterol [Mass/Vol]170 mg/dLNormal<=200[facility] Comment on above:Performed By: #### LIPID, CMP #### [facility] [address] [place] [address] Ines KarenCholesterol in HDL [Mass/Vol]> or = 60 mg/dl - LOW CARDIOVASCULAR RISK <40 mg/dl - HIGH CARDIOVASCULAR RISKSamaritan North Health CenterComment on above:Performed By: #### LIPID, CMP #### [facility] [address] [place] [address] Ines KarenCholesterol in HDL [Mass/Vol]43 mg/dLSamaritan North Health Center Comment on above:Performed By: #### LIPID, CMP #### [facility] [address] [place] [address] Ines KarenCholesterol in LDL [Mass/Vol]115.0 mg/dLSamaritan North Health Center Comment on above:Performed By: #### LIPID, CMP #### [facility] [address] [place] [address] Ines KarenCholesterol in LDL [Mass/Vol]SEE BELOWSamaritan North Health Center Comment on above:Result Comment: <100 mg/dl OPTIMAL 100 - 129 mg/dl NEAR OR ABOVE OPTIMAL 130 - 159 mg/dl BORDERLINE HIGH 160 - 189 mg/dl HIGH >190 mg/dl VERY HIGHPerformed By: #### LIPID, CMP #### [facility] [address] [place] [address] Ines KarenCholesterol.total/Cholesterol in HDL [Mass ratio]4.0 {ratio}Normal Summa HealthComment on above:Performed By: #### LIPID, CMP #### [facility] [address] [place] [address] Ines KarenTriglyceride [Mass/Vol]60 mg/dLNormal<=150[facility] Comment on above:Performed By: #### LIPID, CMP #### [facility] [address] [place] [address] Ines KarenVLDL CALC12.0 mg/dLSamaritan North Health CenterComment on above: Performed By: #### LIPID, CMP #### [facility] [address] [place] [address] Ines KarenPROF 14(COMP METB)on 05-11-0721Netbxxz [Mass/Vol]3.7 g/dLNormal 3.5-5.0Summa HealthComment on above:Performed By: #### LIPID, CMP #### [facility] [address] [address] Ines KarenAlbumin/Globulin [Mass ratio]0.8 {ratio}NormalSumma Health Comment on above:Performed By: #### LIPID, CMP #### [facility] [address] [place] [address] Ines KarenALP [Catalytic activity/Vol]123 U/EZgbdsk16-875NkeSumma Health Comment on above:Performed By: #### LIPID, CMP #### [facility] [address] [place] [address] Ines KarenALT [Catalytic activity/Vol]30 U/LNormal9-52The [facility] Comment on above:Performed By: #### LIPID, CMP #### [facility] [address] [place] [address] Ines KarenAnion gap [Moles/Vol]13.3 mmol/LNormalSumma HealthComment on above:Performed By: #### LIPID, CMP #### [facility] [address] [place] [address] Ines KarenAST [Catalytic activity/Vol]18 U/OVaphyu23-91Zmk [facility] Comment on above:Performed By: #### LIPID, CMP #### [facility] [address] [place] [address] Ines KarenBilirubin Ql (U)0.4 mg/dLNormal0.2-1.3The [place] HospitalComment on above:Performed By: #### LIPID, CMP #### [facility] [address] [place] [address] Ines KarenCalcium [Mass/Vol]9.2 mg/dLNormal8.4-10.2[facility] Comment on above:Performed By: #### LIPID, CMP #### [facility] [address] [place] [address] Ines KarenChloride [Moles/Vol]104 mmol/SUxfapu44-978Kwo [facility] Comment on above:Performed By: #### LIPID, CMP #### [facility] [address] [place] [address] Ines KarenCO2 [Moles/Vol]27.9 mmol/WTqmkky87.0-30.0The [facility] Comment on above:Performed By: #### LIPID, CMP #### [facility] [address] [place] [address] Ines KarenCreatinine [Mass/Vol]0.61 mg/dLNormal0.52-1.04[facility] Comment on above:Performed By: #### LIPID, CMP #### [facility] [address] [place] [address] Ines KarenEGFR-AF BURKINAN>60Normal>=60The [facility] HospitalComment on above: Performed By: #### LIPID, CMP #### [facility] [address] [place] [address] Ines KarenEGFR-NON AF BURKINAN>60Normal>=60Summa HealthComment on above:Performed By: #### LIPID, CMP #### [facility] [address] [place] [address] Inse KarenGlobulin (S) [Mass/Vol]4.4 g/dLNormalThe [facility] HospitalComment on above:Performed By: #### LIPID, CMP #### [facility] [address] [place] [address] Ines KarenGlucose [Mass/Vol]97 mg/dXXraxle59-624Iyt [facility] HospitalComment on above:Performed By: #### LIPID, CMP #### [facility] [address] [place] [address] Ines KarenPotassium [Moles/Vol]4.2 mmol/LNormal3.4-5.0The [facility] Comment on above:Performed By: #### LIPID, CMP #### [facility] [address] [place] [address] Ines KarenProtein [Mass/Vol]8.1 g/dLNormal6.1-8.2The [facility] HospitalComment on above:Performed By: #### LIPID, CMP #### [facility] [address] [place] [address] Ines KarenSodium [Moles/Vol]141 mmol/TKulgmv289-335Oqg [facility] Comment on above:Performed By: #### LIPID, CMP #### [facility] [address] [place] [address] Ines KarenUrea nitrogen [Mass/Vol]14.0 mg/dLNormal7.0-17.0The [facility] HospitalComment on above:Performed By: #### LIPID, CMP #### [facility] [address] [place] [address] Ines KarenUrea nitrogen/Creatinine [Mass ratio]23.0 mg/mgNoCoshocton Regional Medical CenterComment on above:Performed By: #### LIPID, CMP #### [facility] [address] [place] [address] Ines KarenCULTURE THROATon 21-16-9190TVJUQPI THROATCulture Observations: Normal respiratory kaye.NormalThe [facility] HospitalComment on above:Performed By: #### SSCRN, THRTCX #### [facility] [address] [place] [address] Ines KarenINFLUENZA A AND B AGon 26-66-2336QXKRPVIISBMFC BELOWSamaritan North Health CenterComment on above:Result Comment: Negative for Flu A protein angiten. Infection due to Flu A cannot be ruled out. FluA angiten in the sample may be below the detection limit of the test.Performed By: #### INFLUAB #### [facility] [address] [place] [address] Ines KarenINFLUBNEGHSEE [facility] HospitalComment on above: Result Comment: Negative for Flu B protein antigen. Infection due to Flu B cannot be ruled out. FluB antigen in the sample may be below the detection limit of the test.Performed By: #### INFLUAB #### [facility] [address] [place] [address] Ines KarenINFLUENZA A AGNegativeNormalNEGATIVE SEE COMMENTThe [facility] HospitalComment on above:Performed By: #### INFLUAB #### [facility] [address] [place] [address] Ines KarenINFLUENZA B AGNegativeNormalNEGATIVE SEE COMMENTThe [facility] HospitalComment on above:Performed By: #### INFLUAB #### [facility] [address] [place] [address] Ines KarenINTERNAL CONTROLSWithin Normal LimitsNormalWithin Normal LimitsThe [facility] HospitalComment on above:Performed By: #### INFLUAB #### [facility] [address] [place] [address] Ines KarenSTREPT SCREENon 56-47-2849JDEZD SCREEN ANegativeNormalNEGATIVEThe [facility] HospitalComment on above:Performed By: #### SSCRN, THRTCX #### [facility] [address] [place] [address] Ines KarenXR CHEST 2 Von 72-08-9188DM CHEST 2 VPatient: SIVA CARRASQUILLO Exam Date: 07/31/2019 : 1995 Gender:F Ordering : DR. KRISH GO . Admission #: [id number] Family : DR RENETTA SHOOK . Order #: [id number] CLICK HERE TO VIEW EXAM RADIOLOGY REPORT [...] by: Glenna Alonzo M.D. on 07/31/2019 at 09:[address] [place] [address] Vital Signs Date TimeVital SignValuePerforming TzaprzzfoIfondchl48-42-2446 08:25-0400Body kubpnp227.02 cmIndy Ofelia SENIOR BENEFITS ANALYST Work Phone: [phone]09-09-2025 08:25-0400 Body mass index (BMI) [Ratio]36.6 kg/r7FibeurhfIndy Szymanskigino SENIOR BENEFITS ANALYST Work Phone: [phone]09-09-2025 08:25-0400 Body zudgelaicwm94.4 [degF]Indy Ofelia SENIOR BENEFITS ANALYST Work Phone: [phone] [place], [place] 5856209-09-2025 08:25-0400 Body .89 kgIndy Szymanskigino SENIOR BENEFITS ANALYST Work Phone: [phone] [place], [place] 5856209-09-2025 08:25-0400 Diastolic blood qhjbwudp44 mm[Hg]Indy Ofelia SENIOR BENEFITS ANALYST Work Phone: [phone] [place], [place] 5856209-09-2025 08:25-0400 Heart khor326 /minIndy Ofelia SENIOR BENEFITS ANALYST Work Phone: [phone] [place], [place] 5856209-09-2025 08:25-0400 SaO2% (BldA) [Mass fraction]98 %Indy Ofelia SENIOR BENEFITS ANALYST Work Phone: [phone] [place], [place] 5856209-09-2025 08:25-0400 Systolic blood asjgfnam566 mm[Hg]Indy Ofelia SENIOR BENEFITS ANALYST Work Phone: [phone]08-18-2025 13:42-0400 Body Kendrick Marvin MD Work Phone: noFulton [facility] HospitalWutcnsxahh66-42-9039 13:42-0400Body mass index (BMI) [Ratio]36.49 kg/d5ZremdCandice Marvin MD Work Phone: noFulton State HospitalKbmdmkencp53-20-2812 13:42-0400Body qhligv21.44 kgCandice Marvin MD Work Phone: [facility] HospitalVwohzcezrs44-36-8720 13:42-0400Heart zuti395 /min Candice Marvin MD Work Phone: [facility] HospitalLghggvkzdz22-57-2081 13:42-0400Respiratory rate16 /minCandice Marvin MD Work Phone: [facility] HospitalZtqcgcntdr75-46-9846 13:42-3984ZwU1% (BldA) [Mass fraction]98 %Candice Marvin MD Work Phone: [facility] HospitalEiwqdzdmlz37-44-5961 10:42-0400Body azdsxk593 cm Jose TripleTreebhargavienPeer39 DO Work Phone: [facility] HospitalTssflfrqga43-54-8333 10:42-0400Body mass index (BMI) [Ratio]35.43 kg/m2Paul Biedenbach DO Work Phone: [facility] HospitalWrpnkafuvu78-25-4219 10:42-0400Body .72 kgPaul Biedenbach DO Work Phone: [facility] HospitalSebsdevhhd13-90-9003 14:04-0400Body rbangg938 cm Jose Mcrae DO Work Phone: [facility] HospitalRnjzwcwfid00-90-0549 14:04-0400Body mass index (BMI) [Ratio]35.43 kg/m2Paul Biedenbach DO Work Phone: [facility] HospitalNishjhfrjj23-81-9977 14:04-0400Body .72 kgPaul Biedenbach DO Work Phone: [facility] HospitalGkvockxkds72-82-5625 13:23-0400Body .02 cmIndy Gilbert APRN Work Phone: [facility]06-24-2025 13:23-0400 Body mass index (BMI) [Ratio]36.5 kg/s6VdtcytjjIndy Gilbert SENIOR BENEFITS ANALYST Work Phone: [facility]06-24-2025 13:23-0400 Body vtmohsgcxxd38.5 [degF]Indy Szymanskirheaantoniettakia SENIOR BENEFITS ANALYST Work Phone: [facility]06-24-2025 13:23-0400 Body xmudfk51.44 kgIndy Gilbert SENIOR BENEFITS ANALYST Work Phone: [facility]06-24-2025 13:23-0400 Diastolic blood gaqdxqrn52 mm[Hg]Indy Silverpaty SENIOR BENEFITS ANALYST Work Phone: [facility]06-24-2025 13:23-0400 Heart kmda363 /minIndy Richardsonkia SENIOR BENEFITS ANALYST Work Phone: [phone]06-24-2025 13:23-0400 SaO2% (BldA) [Mass fraction]99 %Indy Szymanskigino SENIOR BENEFITS ANALYST Work Phone: [facility]06-24-2025 13:23-0400 Systolic blood vopzmudy920 mm[Hg]Indy Richardsonkia SENIOR BENEFITS ANALYST Work Phone: [facility]05-19-2025 13:23-0400 Body mass index (BMI) [Ratio]36.87 kg/z2HxdxhstzTierney Bass NP Work Phone: [facility] HospitalXldejpqmso18-66-6655 13:230400Body qisyxi58.41 kgTierney Bass RUG DESIGNER Work Phone: [phone]-[facility] HospitalFdxkdryzaw80-09-5155 08:11-0400Body yfazpl788.02 cmC[facility]05-06-2025 08:11-0400Body mass index (BMI) [Ratio]36.5 kg/k4CfxtsgytgCrystal Clinic Orthopedic Center05-06-2025 08:11-0400Body vwnbkxsenum92.8 [degF][facility]05-06-2025 08:110400Body ehyjpk24.44 kgCrystal Clinic [facility]opedic Center05-06-2025 08:11-0400Diastolic blood dakdhpts79 mm[Hg][facility]05-06-2025 08:11-0400 Heart rate96 /minCrystal Clinic Orthopedic Center05-06-2025 08:11-2391RuW8% (BldA) [Mass fraction]99 %[facility]05-06-2025 08:11-0400 Systolic blood mm[Hg][facility]03-12-2025 09:38-0400Body ovbrjc773 cmMicthi Pearl DO Work Phone: [facility]03-12-2025 09:38-0400Body mass index (BMI) [Ratio]38.16 kg/x6Hvhxceythi Kamaras DO Work Phone: [facility]03-12-2025 09:38-0400Body negkkn21.7 kgMicthi Kamaras DO Work Phone: [facility]03-12-2025 09:38-0400Diastolic blood zroegjwp40 mm[Hg]Lindsey Pearl DO Work Phone: [facility]03-12-2025 09:38-0400Heart rate 119 /minMicthi Pearl DO Work Phone: [facility]03-12-2025 09:38-0400Systolic blood lrztyifx028 mm[Hg]Lindsey Pearl DO Work Phone: [facility]02-06-2025 10:05-0500Body mass index (BMI) [Ratio]39.17 kg/l7Eibpl Rebeka DO Work Phone: [facility] HospitalWsfbymrfih69-29-6219 10:05-0500Body kiqcys947.3 kgCorey Rebeka DO Work Phone: [facility] HospitalYdyaxxoyts01-75-5374 10:05-0500Diastolic blood nufhkjwp84 mm[Hg]Magno Rebeka DO Work Phone: [facility] HospitalLdqurgeuib72-54-1084 10:05-0500Systolic blood avzczixo761 mm[Hg]Magno Rebeka DO Work Phone: [facility] HospitalRrehkgtprl02-00-6771 08:44-0500Body mass index (BMI) [Ratio]40.39 kg/m2Mirela Preston PA Work Phone: [phone]-[facility] HospitalMtxcithbwy45-14-0837 08:44-0500Body jieuok811.42 kgMirela Preston PA Work Phone: [phone]-[facility] HospitalTughhnbfif38-40-1064 08:44-0500Diastolic blood paryfwvl72 mm[Hg]Mirela Preston PA Work Phone: [phone]-[facility] HospitalUejmpxzxia32-43-6553 08:44-0500Systolic blood qbeynvyw494 mm[Hg]Mirela Preston PA Work Phone: [phone] [place], [place] [address]Wwpnwrfnnb79-40-4462 09:30-0500Body mass index (BMI) [Ratio]41.77 kg/e1Sjijl Rebeka DO Work Phone: [phone])[facility] [place], [place] [address]Luhmljpwhg99-04-3397 09:30-0500Body sqqebv982.96 kgCorey Rebeka DO Work Phone: [phone])[facility] [place], [place] [address]Ftpcliefko21-62-2089 09:30-0500Diastolic blood hfgbzoot36 mm[Hg]Magno Rebeka DO Work Phone: 1(208)[facility] [place], [place] [address]Jwfqrgjtyp27-30-1462 09:30-0500Systolic blood mm[Hg]Magno Rebeka DO Work Phone: [phone])[facility] [place], [place] [address]Aeqcmkypbp11-25-5887 13:56-0500Body mass index (BMI) [Ratio]41.63 kg/k5Widbr Rebeka DO Work Phone: 1(932)[facility] [place], [place] [address]Oubykbohkn56-68-7762 13:56-0500Body inpvrx549.59 kgCorey Rebeka DO Work Phone: 1(041)[facility] [place], [place] [address]Puhqvgxlfe99-62-3844 13:56-0500Diastolic blood wtjmhkah93 mm[Hg]Magno Rebeka DO Work Phone: 1(462)815-[address] [place], [place] [address]Dkkkwreihk01-08-2926 13:56-0500Systolic blood yzetqasi283 mm[Hg]Magno Rebeka DO Work Phone: 1(946)[facility] [place], [place] [address]Ybihtmjvwa45-78-4546 08:40-0400Body .02 [facility]24 08:40-0400Body mass index (BMI) [Ratio]42.2 kg/b3QkdtrykrzCrystal Clinic [facility]10-25-2024 08:40-0400Body brfhwwfbcry66.3 [degF][facility]10-25-2024 08:40-0400Body qkilzl596.12 kgC[facility]10-25-2024 08:40-0400Diastolic blood zfesxlcj41 mm[Hg][facility]10-25-2024 08:40-0400 Heart rate89 /minCrystal Clinic Orthopedic Center10-25-2024 08:40-2244DyG2% (BldA) [Mass fraction]98 %[facility]10-25-2024 08:40-0400 Systolic blood pirvwqts623 mm[Hg][facility]09-26-2024 08:58-0400Body mass index (BMI) [Ratio]41.7 kg/j9Dffld Rebeka DO Work Phone: 1(667)[facility] [place], [place] [address]Hehdwtglck02-72-2801 08:58-0400Body cshzud425.78 kgCorey Rebeka DO Work Phone: 1(864)[facility] [place], [place] [address]Gyhphcepqg78-90-5346 08:58-0400Diastolic blood dkgrdzfu26 mm[Hg]Magno Reebka DO Work Phone: 1(299)[facility] [place], [place] [address]Ppehdviquz47-47-8918 08:58-0400Systolic blood rvajlblq105 mm[Hg]Magno Rebeka DO Work Phone: 1(507)[facility] [place], [place] [address]Qxetyqmkyi62-41-9729 09:48-0400Body fagtaa435 cm Magno Rebeka DO Work Phone: 1(498)[facility] [place], [place] [address]Cgmahzogtx28-62-2264 09:48-0400Body mass index (BMI) [Ratio]41.42 kg/z1Ggtlw Rebeka DO Work Phone: 1(768)264[facility] HospitalUrjkmqmdco23-25-0454 09:48-0400Body .05 kgCorey Rebeka DO Work Phone: 1(323)[address] [place], [place] [address]Iqgmoqdjsh16-95-9932 09:48-0400Diastolic blood opugdqig86 mm[Hg]Magno Rebeka DO Work Phone: [facility] HospitalWgkilomyce50-46-9142 09:48-0400Systolic blood ifbxmaib947 mm[Hg]Magno Rebeka DO Work Phone: NOF[facility] HospitalKfgamrjefr99-04-7682 13:00-0500Body genhmf761.02 cmIndy Nadeemacher Other [employer] Other [phone] 13:00-0500Body mass index (BMI) [Ratio] 40.92 kg/j2NmuaavokIndy Szymanskirbacher Other [employer] Other 4-431652-43963108-29-4413 13:00-0500Body crpika837.78 kgRaymondsayra Nessarbacher Other [employer] Other 7-272371-02339925-07-5707 13:00-0500Diastolic blood fnjegjbh56 mm[Hg] Indy Gilbert Other [employer] Other 3-967669-39589082-12-9531 13:00-6625LwA6% (BldA) [Mass fraction]98 % Indy Gilbert Other [employer] Other 6-739555-58602130-05-2938 13:00-0500Systolic blood wvztiebp058 mm[Hg] Indy Gilbert Other [employer] Other 12-21-2023 13:00-0500Body abgvep814.02 cmRaymondjessicabrandie Nessarbacher Other [employer] Other 12-21-2023 13:00-0500Body mass index (BMI) [Ratio] 40.56 kg/g7EeejaqyrIndy Szymanskirbacher Other [employer] Other 12-21-2023 13:00-0500Body mpgejq200.87 kgIndy Silveracher Other [employer] Other 12-21-2023 13:00-0500Diastolic blood uxznunpi37 mm[Hg] Indy Ofelia Other [employer] Other 12-21-2023 13:00-4241JlS2% (BldA) [Mass fraction]100 % Indy Ofelia Other [place] Other 12-21-2023 13:00-0500Systolic blood vunvxkcy578 mm[Hg] Indy Ofelia Other [employer] Other 06-21-2023 13:00-0400Body laaiho201.02 cmIndy Silveracher Other [employer] Other 06-21-2023 13:00-0400Body mass index (BMI) [Ratio] 39.32 kg/x7BgkkrhfpIndy Szymanskirbacher Other [employer] Other 06-21-2023 13:00-0400Body uyfovl970.7 kgIndy Szymanskirbacher Other [employer] Other 06-21-2023 13:00-0400Diastolic blood mm[Hg] Indy Ofelia Other [employer] Other 06-21-2023 13:00-0400Systolic blood whtectil101 mm[Hg] Indy Gilbert Other [employer] Other 12-18-2022 10:30-0500Body jooinv360.02 cmSandriykayleewinifred Renato Other [employer] Other 12-18-2022 10:30-0500Body mass index (BMI) [Ratio]37.2 kg/z0Xtwndwzmykateryna Gross Other [employer] Other 12-18-2022 10:30-0500Body kgfoluufavf86.9 [degF] Yessenia Gross Other [employer] Other 12-18-2022 10:30-0500Body jyzacz65.26 kgStkateryna Gross Other [employer] Other 12-18-2022 10:30-0500Respiratory rate18 /minSkarina Gross Other [employer] Other 12-18-2022 10:30-1991WzB3% (BldA) [Mass fraction]99 % Yessenia Gross Other [employer] Other 10-16-2022 10:15-0400Body .02 Art Downing Other [employer] Other 10-16-2022 10:15-0400Body mass index (BMI) [Ratio]37.2 kg/p6GviukLili Downing Other [employer] Other 10-16-2022 10:15-0400Body xwmlrjcjewo89.6 [degF]Lili Downing Other [employer] Other 10-16-2022 10:15-0400Body fswami10.26 kgLili Downing Other [employer] Other 10-16-2022 10:15-0400Respiratory rate18 /minLili Downing Other [employer] Other 10-16-2022 10:15-1554JkW4% (BldA) [Mass fraction]99 % Lili Downing Other [employer] Other 04-03-2022 10:20-0400Body aofnqy891.02 cmPamela Kamryn Other [employer] Other 04-03-2022 10:20-0400Body mass index (BMI) [Ratio]37.2 kg/h4Latwawcarlee Harry Other [employer] Other 04-03-2022 10:20-0400Body zvuognkebtg78.2 [degF]Ailyn Kamryn Other [employer] Other 04-03-2022 10:20-0400Body pxiffz83.26 kgPacarlee Harry Other [employer] Other 04-03-2022 10:20-0400Respiratory rate18 /minAilyn Harry Other [employer] Other 04-03-2022 10:20-1341LxM9% (BldA) [Mass fraction]97 % Ailyn Kamryn Other [employer] Other 01-05-2022 13:15-0500Body mgdjko557.02 cmThomas Jef Other [employer] Other 01-05-2022 13:15-0500Body mass index (BMI) [Ratio] 37.73 kg/q1Rmayou Jef Other [employer] Other 01-05-2022 13:15-0500Body rkuoyluppgw96.6 [degF]Jeramy Fuchs Other [employer] Other 01-05-2022 13:15-0500Body .62 kgThomas Jef Other [employer] Other 01-05-2022 13:15-0500Respiratory rate16 /minThomas Jef Other [employer] Other 01-05-2022 13:15-6014YrQ9% (BldA) [Mass fraction]98 % Jeramy Fuchs Other [employer] Other Encounters Encounter DateEncounter TypeCare ProviderFacilityStart: 04-12-2025 End: 28-03-1829cxsavbqymwLvjsssvb Rohrbacher APRN Work Phone: [facility] Work Phone: Start: 04-12-2025 End: 19-02-9383Yxfgmnc encounter procedureIndy Gilbert APRN [facility] Work Phone: Start: 03-25-2025 End: 99-33-2151Unhyzrtra encounterCandice Marvin MD Work Phone: [facility] [place] EndocrinologyComment on above:Results Start: 35-50-0652Bvs-patient / Non-visitCandice Marvin MD-[facility] Work Phone: Start: 03-21-2025 End: 76-88-5437Urecapfatimah Marvin MD Work Phone: noms [place] EndocrinologyStart: 03-21-2025 End: 54-24-0820Enqevmfatimah Marvin MD Work Phone: noms [place] EndocrinologyStart: 03-21-2025 End: 11-51-5474Jrcccq outpatient new 45 minutesCandice Marvin MD Work Phone: noms [place] EndocrinologyComment on above: Multinodular goiter (Primary Dx); Abnormal finding on thyroid function test; Encounter for dietary consultation; Class 2 obesity due to excess calories without serious comorbidity with body mass index (BMI) of 36.0 to 36.9 in adultStart: 03-21-2025 End: 39-20-0612gclhurvvvgUWZAR F SABBAGHNot AvailableStart: 03-07-2025 End: 58-03-0223Jcgmuq flowsheetPaul S Biedenbach DO Work Phone: [facility] [place] OtolaryngologyStart: 03-07-2025 End: 84-84-0090Tbeudf flowsheetPaul S Biedenbach DO Work Phone: noms [facility] OtolaryngologyStart: 03-07-2025 End: 17-68-1330Yodaszq encounter procedurePaul S Biedenbach DO-[facility] [place] Work Phone: Start: 03-07-2025 End: 76-52-8048Elmsyh outpatient visit 25 minutesPaul S Biedenbach DO Work Phone: noms [facility] OtolaryngologyComment on above:Thyroid nodule (Primary Dx); Nontoxic multinodular goiterStart: 03-07-2025 End: 35-62-7799coattmztrnNundkqihYonny Gilbert APRN Work Phone: [facility] Work Phone: Start: 11-39-4404Ash-patient / Non-visitPaul S Biedenbach DO-[facility] Work Phone: Start: 02-22-2025 End: 06-00-1795trddrvvyfuUFBI S BIEDENBACHNot AvailableStart: 02-22-2025 End: 89-89-7064Jcubaj flowsheetPaul S Biedenbach DO Work Phone: noms [facility] NORWALKStart: 02-22-2025 End: 92-85-3492Qhjcpq flowsheetPaul S Biedenbach DO Work Phone: [facility] ENT NORWALKStart: 02-22-2025 End: 46-80-1338Qbmmhn outpatient new 45 minutesPaul S Biedenbach DO Work Phone: noms ENT NORWALKComment on above:Nontoxic multinodular goiter (Primary Dx); Thyroid nodule ; Thyroid dysfunctionStart: 40-90-4582jxzybsithtSahydpva Rohrbacher APRN Work Phone: [facility] Work Phone: Start: 29-74-3314Fsu-patient / Non-visitIndy Gilbert APRN [facility] Work Phone: Start: 01-25-2025 End: 71-47-0970Fnunjtd encounter procedureIndy Gilbert APRN MANAGER INVENTORY CONTROL-[facility] Work Phone: Start: 01-17-2025 End: 91-38-7939Ucunvajsl Result EncounterCorey Rebeka DO Work Phone: noms External Department UnsolicitedStart: 01-17-2025 End: 40-77-6940Vgasldxxe Result EncounterCorey Rebeka DO Work Phone: noms External Department UnsolicitedStart: 01-17-2025 Non-patient / Non-visitCorey [facility] Work Phone: Start: 12-20-2024 End: 72-49-6967Eufphk flowsheetTeirney Dodgely RUG DESIGNER Work Phone: noms BCP OBStart: 12-20-2024 End: 86-51-8530Wvmcqg flowsheetKristina Shelia RUG DESIGNER Work Phone: noMS BCP OBStart: 12-20-2024 End: 02-74-4065Trqpcx outpatient visit 15 minutesKristina Shelia RUG DESIGNER Work Phone: noms BCP OBComment on above:Encounter for weight managementStart: 12-20-2024 End: 12-31-3556zpvjbrpsdeRJWHEJGN EBERLYNot AvailableStart: 12-07-2024 End: 35-38-9565aitiozjsvoQrjsjebhnPike Community Hospital Work Phone: Start: 12-07-2024 End: 24-86-7064Ecjrgcr encounter procedureC[facility] Work Phone: Start: 12-07-2024 End: 15-93-7020Sjevjdp encounter statusIndy Gilbert APRN [facility]art: 11-29-2024 End: 29-16-8324Xcdwfkh encounter statusIndy Gilbert SENIOR BENEFITS ANALYST-RUG DESIGNER Work Phone: [facility] SystemStart: 31-00-1479Utfvrqsao for general adult medical examination without abnormal findingsINDY GILBERT [facility] Hospitaltart: 11-29-2024 End: 60-60-5693Jygssl OnlyIndy Gilbert SENIOR BENEFITS ANALYST-RUG DESIGNER Work Phone: [facility] LabComment on above:Encounter for general adult medical examination without abnormal findings (Primary Dx)Start: 71-89-2220Egcizsx encounter statusChillicothe VA Medical Centertart: 11-03-2024 End: 37-45-5551Padkxc flowsheetCorey Rebeka DO Work Phone: [facility] BCP OBStart: 11-03-2024 End: 91-67-1513Bwhfce flowsheetCorey Rebeka DO Work Phone: [facility] BCP OBStart: 11-03-2024 End: 71-59-9497Xirewspoo Result EncounterCorey Rebeka DO Work Phone: noms External Department UnsolicitedStart: 11-03-2024 End: 79-70-7341epogohbxjxAQIJX FAZIONot AvailableStart: 10-13-2024 End: 32-41-7371clipfaahsoZISMJGFRacine County [facility] Start: 10-13-2024 End: 50-05-6776Qkwinc outpatient new 30 minutesTri[facility]County [facility] DO Work Phone: [facility] SurgeryComment on above: Fibroadenoma of left breast (Primary Dx); History of benign phyllodes neoplasm of breast; Family history of malignant neoplasm of ovary in first degree relativeStart: 10-06-2024 End: 07-96-5923Rtgqqpawk encounterElizabemarietta Ennis [facility] LIMAYeniSt. [facility] - MammographyStart: 10-04-2024 End: 66-74-8578dxaqimpicbRwckyb [facility] Centertart: 09-29-2024 End: 74-52-2605qtqyfznhaqKFSIU R FASelect Medical Specialty [facility] HospitalStart: 09-09-2024 End: 78-72-2440Lgifkf Armando SCHAEFFER Work Phone: [facility] BCP OBStart: 09-09-2024 End: 01-11-3130Kpnoge Armando SCHAEFFER Work Phone: [facility] BCP OBStart: 09-09-2024 End: 50-34-6357Pfwgjq outpatient visit 15 minutesCorey Rebeka DO Work Phone: noms [facility] OBComment on above:Encounter for weight management; control counseling; Phyllodes tumor of breast; Other specified disorders of breastStart: 09-09-2024 End: 08-56-2581uhyrhxtakpYUPJB FAZIONot AvailableStart: 08-12-2024 End: 95-26-1972Vccydu flowsKristen SCHAEFFER Work Phone: [facility] BCP OBStart: 08-12-2024 End: 21-82-9755Hcnyzo flowsKristen SCHAEFFER Work Phone: [facility] BCP OBStart: 08-12-2024 End: 62-31-1130Viiojuy encounter procedureMirela SCHAEFFER Work Phone: [facility] BCP OBComment on above:Weight gain; Encounter for weight managementStart: 08-12-2024 End: 11-89-4378vloahgexbzTVF Dexter AvailableStart: 07-15-2024 End: 90-95-7349Biiccw flowsheetCorey Rebeka DO Work Phone: NOMI BCP OBStart: 07-15-2024 End: 84-74-8662Rabhur flowsheetCorey Rebeka DO Work Phone: NO[facility] BCP OBStart: 07-15-2024 End: 04-02-5137Vqobyk outpatient visit 15 minutesCorey Rebeka DO Work Phone: [facility] BCP OBComment on above:Encounter for weight managementStart: 07-15-2024 End: 67-80-5046hvysbklodqBHISA FAZIONot AvailableStart: 06-14-2024 End: 03-03-1855Cfcahp outpatient visit 15 minutesCorey Rebeka DO Work Phone: [facility] BCP OBComment on above:Encounter for initial prescription of contraceptives, unspecified contraceptive; Mastitis; Encounter for weight management; Breast tenderness in femaleStart: 06-14-2024 End: 28-96-7601blltclpnflMARWU FAZIONot AvailableStart: 05-28-2024 End: 10-04-2530jcyksgacbmNaalziqckPike Community Hospital Work Phone: Start: 05-28-2024 End: 12-59-3370Uorszdn encounter procedureFirelands Physician [facility] Work Phone: Start: 04-29-2024 End: 66-04-0198Dwqpkc flowsheetCorey Rebeka DO Work Phone: noms BCP OBStart: 04-29-2024 End: 46-55-6286Fjdifv flowsheetCorey Rebeka DO Work Phone: noms BCP OBStart: 04-29-2024 End: 00-22-1701Djmwrs outpatient visit 10 minutesCorey Rebeka DO Work Phone: noms BCP OBComment on above:Intrauterine device surveillanceStart: 04-29-2024 End: 63-13-7439fmdotixnbaQBCNN FAZIONot AvailableStart: 04-01-2024 End: 34-77-8524Canknsg encounter procedureCorey Rebeka DO Work Phone: noms BCP OBComment on above:Encounter for insertion of intrauterine contraceptive device (IUD); Encounter for insertion of mirena IUDStart: 04-01-2024 End: 03-50-5851hcbjcpucemCVEYT FAZIONot AvailableStart: 08-12-2023 End: 03-60-7582wimxvknvdiRuvarzwl Rohrbacher Other [employer] Other Start: 83-46-8501Vcrbgn outpatient visit 15 minutes Indy FreemanCentervilletart: 07-24-2023 End: 59-06-6245gzqmllxbijJphtvocu Rohrbacher Other [employer] Other Start: 92-75-9474Slcqzw outpatient visit 25 minutes Indy FreemanCentervilletart: 01-22-2023 End: 94-69-0180ejxuzssmznAgranmvx Rohrbacher Other [employer] Other Start: 98-10-1481Vodyhm outpatient visit 15 minutes Indy SzymanskirheaantoniettaTuCentervilletart: 01-16-2023 End: 75-39-3774lymufxinzpAplslgne Nessarbacher Other [employer] Other Start: 62-08-3959Bsgdxirft encounterIndy [facility] CenterStart: 07-21-2022 End: 33-57-1861mfqtkxuzcsLigbyvpnl Renato Other [employer] Other Start: 42-65-4441Ranons outpatient visit 25 minutes Yessenia RenatoFPG Urgent Care ClydeStart: 05-20-2022 End: 04-38-6564zwqvsvpnmhQprmnkig Nadeemacher Other [employer] Other Start: 49-77-5763Adybmpzkt encounterIndy [facility]ated [facility] CenterrheaMercy [facility] King[facility] – KingfisherStart: 05-19-2022 End: 84-52-3306mnnhmgzsvhZrplp Keller Other noQiwi [employer] Other Start: 51-76-1492Yplkpl outpatient visit 25 minutes Lili DowningFPG Urgent Care ClydeStart: 11-04-2021 End: 87-88-3087waflivacwhEpteaz Kamryn Other [employer] Other Start: 61-95-7032Nvepkx outpatient visit 15 minutes Ailynnettie HarryFPG Urgent Care ClydeStart: 08-08-2021 End: 76-60-1235fptvfopwujChseyt Jef Other [employer] Other Start: 85-39-4347Fpltug outpatient visit 15 minutes Jeramy FuchsFPG Urgent Care ClydeStart: 07-26-2021 End: 65-88-7721utczulgdhpInemjuiw Rohrbacher Other [employer] Other Start: 68-31-0054Trzgwwjea encounterIndy SzymanskirbantoniettarFJefferson [facility])Start: 07-25-2021 End: 68-27-6571bamtlnhfoeXuxfyvku Rohrbacher Other [employer] Other Start: 56-87-2140Soheflpjr encounterJennbrandie Martell rSmartrt: 07-24-2021 End: 75-00-2510uobvbddzkkSbcyevhw Rohrbacher Other [employer] Other Start: 54-64-4666Fsmyaqggu encounterIndy SzymanskirbacheTuJefferson [facility] ([facility])Start: 07-11-2021 End: 77-63-8049smtcdlcnyhBauomcxc Rohrbacher Other [employer] Other Start: 99-99-2491Tdoufywxo encounterIndy Martell rSmartrt: 06-05-2021 End: 75-02-0605xoczvkyvhlQfwqvtea Rohrbacher Other [employer] Other Start: 34-51-3969Gqtarc outpatient visit 15 minutes Indy DebraTuJefferson [facility] ([facility])Start: 05-19-2020 End: 88-42-5290Jbztkzg encounter procedureJESAYRA SZYMANSKIRBACHERFacility:M8Umohs: 07-31-2019 End: 20-38-8938Izkmatc encounter procedureDEIMELDALETICIA ABBIFacility:X5Jppyb: 03-03-2018 End: 00-79-7047Wwtinrj encounterJohn KovesdiFacility:CD:[id number]: 02-24-2018 End: 34-58-8103Teoqplw encounterJohn KovesdiFacility:CD:[id number] Procedures DateProcedureProcedure DetailPerforming ClinicianStart: 02-19-2025 End: 02-19-2025H/O: sectionStatus post deliveryPaul Biedenbach DO Work Phone: start: 45-88-3028FS PELVIS TRANSVAGINALCorey Rebeka DO Work Phone: Start: 35-78-2930CVL THYROXINE (T4)Magno Rebeka DO Work Phone: Start: 96-28-2694KKI,APTIMA HPV,AGE GDLNCorey Rebeka DO Work Phone: Start: 90-84-8563Esjgfvdlpga observation [Identifier] in Cervix by Cyto Lisa Gilbert APRN-RUG DESIGNER Work Phone: Start: 69-78-4739DAS INSERTIONCorey Rebeka DO Work Phone: Start: 51-99-1508Ypaho test visual color cmprsn methsCorey Rebeka DO Work Phone: H/O: sectionStatus post delivery Comment on above:Problem List clean-up per request of Phys. EHR Cmte Plan of Treatment DateCare ActivityDetailAuthorStart: 52-25-8000WHlU,Tdap and Td Vaccines (2 - Td or Tdap)DTaP,Tdap and Td Vaccines (2 - Td or Tdap)[facility] SystemStart: 03-20-2026 End: 31-21-9394Tkmzxmb encounter nixkmnsas68/17/2026 2:00 PM EDT Office Visit [facility] [address] [place] [id number] Candice Marvin MD [address] [place] [address] NOMMariely Pedro EndocrinologyStart: 11-09-2025 End: 75-75-6969Jxpjfcp encounter procedureNOMS BCP OBStart: 21-20-8534Rslkq BMI ScreeningAdult BMI ScreeningProClinton Memorial Hospital SystemStart: 50-08-7249Gaatkid ScreeningTobacco ScreeningChillicothe [facility] SystemStart: 55-62-9655Nsuqg BMI ScreeningAdult BMI ScreeningProClinton Memorial Hospital SystemStart: 73-33-1253Uqzpztqiw vaccinationInfluenza VaccineProClinton Memorial Hospital SystemStart: 03-25-2025 End: 20-81-0939Qexodpt encounter yaoybbagt43/22/2025 10:45 AM EDT Office Visit [facility] [address] [place] [address] Jose Mcrae DO [address] [place] [address] WILLIAM Pedro OtolaryngologyStart: 03-21-2025 End: 01-87-8090Rqcguxmesxy [Units/volume] in Serum or PlasmaTSH Lab Routine Multinodular goiter Abnormal finding on thyroid function test Expected: 03/21/2025 (Approximate), Expires: 03/21/2026[facility] HealthcareComment on above: Expected: 03/21/2025 (Approximate), Expires: 03/21/2026Start: 03-21-2025 End: 07-96-3129Fqggxtkaj (T4) free [Mass/volume] in Serum or PlasmaT4, free Lab Routine Multinodular goiter Abnormal finding on thyroid function test Expected: 03/21/2025 (Approximate), Expires: 03/21/2026[facility] HealthcareComment on above: Expected: 03/21/2025 (Approximate), Expires: 03/21/2026Start: 03-21-2025 End: 72-90-3778Csbhpfaoupjtpryj (T3) Free [Mass/volume] in Serum or PlasmaT3, free Lab Routine Multinodular goiter Abnormal finding on thyroid function test Expected: 03/21/2025 (Approximate), Expires: 03/21/2026[facility] Work Phone: Comment on above:Expected: 03/21/2025 (Approximate), Expires: 03/21/2026Start: 03-21-2025 End: 45-37-2708Fonlpmq encounter procedureNOMS SH ENDOCRINOLOGYComment on above: ArrivedStart: 03-14-2025 End: 50-13-0416Utqprhb encounter qfjxhkiwp76/11/2025 9:30 AM EDT Office Visit [facility] [address] [place] [address] Mirela Preston PA [address] [place], [place] [id number] NOMS BCP OBStart: 03-07-2025 End: 56-94-1279Zhjzyki encounter procedureNOMS ENT SANDUSKYComment on above: ArrivedStart: 02-22-2025 End: 56-26-9368Yxkntvu peroxidase antibodyThyroid peroxidase antibody Lab Routine Thyroid nodule Expected: 02/22/2025 (Approximate), Expires:02/22/2026 [facility] Healthcare Work Phone: comment on above:Expected: 02/22/2025 (Approximate), Expires: 02/22/2026Start: 49-29-2419Anyrgnx referralLakehealth [facility]wood [facility] Work Phone: Start: 69-80-7287Eofpyhp referralLakehealth Beachwood Medical Center Work Phone: Start: 12-20-2024 End: 51-63-4516Kzlnhko encounter gjxckltko34/19/2025 1:30 PM EDT Office Visit [facility] [address] [place] [address] Tierney Bass, BELIA [address] [place] [address] ArrivedNOMS BCP OBComment on above: ArrivedStart: 11-03-2024 End: 55-18-9988Xdsqbrh encounter procedureNOMS BCP OBComment on above:Arrived Start: 10-13-2024 End: 14-32-1980Ozqtzsg encounter ufcpeguwm73/07/2025 9:00 AM EDT [facility] Visit [facility] [address], [id number] Lindsey Pearl DO [address] [place] [address] [facility] SurgeryStart: 09-09-2024 End: 73-78-5409YZ Breast - bilateral DiagnosticBilateral diagnostic mammogram Imaging Routine Phyllodes tumor of breast Other specified disorders of breast Expected: 09/09/2024 (Approximate), Expires: 11/07/2025[facility] Work Phone: comment on above:Expected: 09/09/2024 (Approximate), Expires: 11/07/2025Start: 09-09-2024 End: 78-18-9200Ogdvnga encounter /06/2025 9:50 AM EST Office Visit [facility] [address] [place] [address] Mirela Preston PA [address] [place] [address] ArrivedNOMS BCP OBComment on above:ArrivedStart: 08-12-2024 End: 44-97-2915Dzndapw encounter procedureNOMS BCP OBComment on above:Arrived Start: 07-15-2024 End: 68-96-8549Hcigyoh encounter procedureNOMS BCP OBComment on above:Arrived Start: 04-29-2024 End: 10-67-5305Iibptsv encounter procedureNOMS BCP OBComment on above:Arrived Start: 92-22-6102Cfhmgcezf vaccinationInfluenza VaccineChillicothe [facility] Center System Start: 84-72-4672Cqheoehbv for malignant neoplasm of cervixPap SmearChillicothe VA Medical Center SystemStart: 41-30-6015Dagvl BMI Follow Up PlanAdult BMI Follow Up Plan [facility]: 21-10-1101Ozsfeyicho ScreeningDepression Screening [facility]: 26-91-4821Lhpmrjx ScreeningTobacco Screening [place] End: 17-15-9435IAF W Auto Differential panel - BloodCBC auto differential Lab STAT Encounter for general adult medical examination without abnormal findings 1 Occurrences starting 11/29/2024 until 11/29/2025[facility] Work Phone: Comment on above:1 Occurrences starting 11/29/2024 until 11/29/2025BC W Auto Differential panel - BloodCBC auto differential Lab STAT Encounter for general adult medical examination without abnormal findings 11/29/2024 8:19 AM [employer] End: 27-40-5315Eoipqlfzjiqul metabolic 2000 panel - Serum or PlasmaComprehensive metabolic panel Lab Routine Encounter for general adult medical examination without abnormal findings 1 Occurrences starting 11/29/2024 until 11/29/2025 [place]apers[place]Comment on above:1 Occurrences starting 11/29/2024 until 11/29/2025omprehensive metabolic 2000 panel - Serum or PlasmaComprehensive metabolic panel Lab Routine Encounter for general adult medical examination without abnormal findings 11/29/2024 8:19 AM [facility] [employer] End: 87-65-3894Zpwhg 1996 panel - Serum or PlasmaLipid profile Lab Routine Encounter for general adult medical examination without abnormal findings1 Occurrences starting 11/29/2024 until 11/29/2025[facility] CenterComment on above:1 Occurrences starting 11/29/2024 until 11/29/2025Lipid 1996 panel - Serum or PlasmaLipid profile Lab Routine Encounter for general adult medical examination without abnormal puhzqyyx65/28/2025 8:19 AM DTI - [employer] InnovationsUniversal Health ServicesLookwider Formerly [facility] HospitalPatient referralLakehealth [facility] Work Phone: [place] [facility] Immunizations Immunization DateImmunizationNotesCare SsxsqsrhFnunjtxf05-91-3655fwbrvnx toxoid, reduced diphtheria toxoid, and acellular pertussis vaccine, [facility] Payers DatePayer CategoryPayerPolicy [id number] Cross Blue ShieldBCBS [id number] 28-28-1647Hdfmkutvvb Managed Care - POSAETNA 1.2.840.772282.1.13.424.2.7.9.415552.502.96567-49-9867Cxnlyfa Care HMO (unspecified)1.2840.492123.1.13.693.2.7.9.118728.000669.15261-32-1823Ekviqqh Health CbhfgqxssY12[id number] 2..1.077821.3.579.2.593 [id number] 2.0.1.340872.3.57[id number] 2.0.1.963253.3.57[id number] 2..1.769855.3.579.[id number] 2.16840.1.359735.3.579.[id number] 2.16840.1.206306.3.579.[id number] 2.16840.1.427516.3.579.[id number] 2.16840.1.753471.3.579.[id number] 2.840.1.813059.3.579.[id number] 2.840.1.337647.3.579.[id number] 2.0.1.155733.3.579.2.687706-73-7161Wuaiokq2623429 2.840.1.652558.3.579.2.25[id number] 2.16840.1.245925.3.579.[id number] 2.840.1.371869.3.579.[id number] 2.840.1.521373.3.579.2.856175-66-3578Xufxgzo0656953 2.840.1.473844.3.579.2.378506-54-9639Fnwbdhh0601619 2.16840.1.541817.3.579.2.654136-58-1799Ugmpezq1621810 2.16840.1.947749.3.579.2.698531-15-9250Fuultfl7439157 84.1.176281.3.579.2.[id number] [facility] CenterWxktfrYHR2394785JJ .1.028995.Blue [facility] CenterPkkyhmCOB947F06022 .1.666787.Private Health [id number] .1.846657. Private Health InsuranceAetna Insurance [id number]/HFA/FAP [id number] .1.695870.3.579.2.531 Social History DateTypeDetailFacilityStart: 09-23-2023 End: 27-88-2900Bsy Assigned At [facility] Other Start: 08-27-2021 End: 91-92-7714Tfdofry smoking status NHISNever smoked tobacco (finding) [facility]art: 06-07-7252Qat Assigned At [facility]art: 09-23-2023 End: 13-04-0892Cicenzd use and exposureSmokeless tobacco non-userNOMS Healthcare Start: 06-14-2024 End: 96-56-7868Nwngjaafh beverage intakeCurrent drinker of alcohol (finding)[facility] HealthcareStart: 09-23-2023 End: 80-62-4646Wjiufdo of Social functionNOMS HealthcareStart: 89-59-6475Ysegvlm Commentcaffeine: 1-2 cups per day coffee, sodaNOMS HealthcareStart: 1995 Sex assigned at birthNot on fileNOMS HealthcareTobacco smoking status NHIS Tobacco smoking consumption unknownProClinton Memorial Hospital SystemStart: 12-23-2022 End: 86-31-3737QiwRheyvb (finding)[facility] Hospitaltart: 10-13-2024 Alcoholic beverage intakeEx-drinker (finding)[facility] SystemWithin the past 12 months we worried whether our food would run out before we got money to buy more.Never TrueProMedica Health SystemNEGATED: Highlighted [facility] HospitalNEGATED: Highlighted [facility] Clinical Notes 03-04-2021 to 03-25-2025 Note Date & CnroFfzbSlqyvogo02-09-8275 Telephone encounter Note* Telephone Encounter - Torres Modi - 03/25/2025 10:56 AM EDT Pt would like lab read please and thank you! [facility] HospitalHycysvpehf20-01-1340 Miscellaneous Notes* Telephone Encounter - Torres Modi - 03/25/2025 10:56 AM EDT Pt would like lab read please and thank you! documented in this encounterSullivan County Memorial HospitalQvzlgtmnck14-99-2255 History of Present illness Narrative* Candice Marvin MD - 03/21/2025 1:50 PM EDT Siva Weems is a 29 y.o. female Indy Gilbert,* presents with chief complaint of Thyroid Problem HPI: History of Present Illness The patient is a new patient referred by Indy Gilbert for abnormal thyroid function tests. 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 She experiences a range of symptoms [...] List clean-up per request of Phys. [facility]/19/2025 Problem List clean-up per request of Phys. EHR Cmte Elevated LFTs 02/19/2025 Problem List clean-up per request of Phys. [facility] Family history of cancer Family history of thyroid nodule 02/19/2025 Fibrocystic disease of right breast 02/19/2025 Fibroid 2014 [facility]stone [facility] 02/19/2025 Problem List clean-up per request of Phys. [facility]HR [facility] Heart disease High serum triiodothyronine (T3) 02/19/2025 Hyperbilirubinemia 02/19/2025 Problem List clean-up per request of Phys. EHR Cmte Hypertension Low iron Migraine headache 02/19/2025 Migraine without aura and without status migrainosus, not intractable 02/19/2025 Migraines Motion sickness 02/19/2025 Non morbid obesity due to excess calories 02/19/2025 Poor posture 02/19/2025 , delivered ([facility]) 02/19/2025 Problem List clean-up per request of Phys. [facility]HR [facility] -induced hypertension ([facility]) 02/19/2025 Problem List clean-up per request of [...] LUMPECTOMY Right x2 in right breast, benign, [facility] SECTION, LOW TRANSVERSE 03/22/2021 CHOLECYSTECTOMY 08/27/2021 [...] on the left side, showing colloid cyst, [place] 2. - Repeat ultrasound in 1 year. Follow-up with ENT. Follow-up: Repeat thyroid function test with TSH, free T4, and free T3. Repeat ultrasound in 1 year. Follow-up with ENT in 1 year. documented in this encounterSullivan County Memorial HospitalAsenkgusai50-73-4647 History of Present illness Narrative* Jose Mcrae, DO - 03/07/2025 11:00 AM EDT Subjective Patient ID: Siva Weems is a [...] evaluation of multinodular goiter documented in this encounterSullivan County Memorial HospitalHocfwvbamk51-86-4397 History of Present illness Narrative* Jose Mcrae DO - 02/22/2025 2:00 PM EDT Subjective Patient ID: Siva Weems is a [...] thyroid goiter. Her mother had her thyroid remove d. The rest of her review of systems [...] right breast 02/19/2025 Fibroid 2014 Gallstone pancreatitis ([facility]) 02/19/2025 Problem List clean-up per request of Phys. EHR Cmte Heart disease High serum triiodothyronine (T3) 02/19/2025 Hyperbilirubinemia 02/19/2025 Problem List clean-up per request of Phys. EHR Cmte Hypertension Low iron Migraine headache 02/19/2025 Migraine without aura and without status migrainosus, not intractable 02/19/2025 Migraines Motion sickness 02/19/2025 Non morbid obesity due to excess calories 02/19/2025 Poor posture 02/19/2025 , delivered ([facility]) 02/19/2025 Problem List clean-up per request of Phys. EHR Cmte -induced hypertension ([facility]) 02/19/2025 Problem List clean-up per request [...] weeks, then remove for 1 week., Disp: 1each, Rfl: 11 ferrous sulfate 325 (65 Fe) [...] mg) by mouth in the morning. 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 Pets: dogs Housing: municipal water no filter, electric heat Social Drivers of Health Financial Resource Strain: Not on file Food Insecurity: No Food Insecurity (10/13/2024) [facility] Hunger Screening Within the past 12 [...] motion, no cervical lymphadenopathy, review of her thyroidultrasound reveals some evidence of enlargement of thyroid [...] for evidence of thyroiditis documented in this encounterSullivan County Memorial HospitalZmbeeqgwrb56-90-8775 Hospital Discharge instructionsAmbulatory Orders* Referral to ENT Time Frame: 02/07/25, Location: None Selected [facility] Work Phone: 1(801) 877-671606-24-2025 Chief complaint+Reason for visit Narrative * Chief Complaint Admit Date Discuss BW Results January 25, 2025 1:09 pm Referral Order February 07, 2025 4:22p m left thyroid nodule March 07, 2025 11: 25am Reason for Visit Admit Date Family history of thyroid nodule January 252024 1:09pm High serum triiodothyronine (T3) January 252024 1:09pm [facility] Work Phone: 1(215) 690-845706-24-2025 Chief complaint+Reason for visit Narrative * Chief Complaint Admit Date Discuss BW Results January 25, 2025 1:09 pm Referral Order February 07, 2025 4:22p m left thyroid nodule March 07, 2025 11: 25am Endocrinology f/u April 12, 2025 8:24am Reason for Visit Admit Date Family history of thyroid nodule January 252024 1:09pm High serum triiodothyronine (T3) January 252024 1:09pm Fatigue April 12, 2025 8:24am Hair loss April 12, 2025 8:24am Obesity (BMI 35.0-39.9 without comorbidi ty) April 12, 2025 8:24am Primary hypertension April 12, 2025 8:24am [facility] Work Phone: 1(765) 543-169606-24-2025 Evaluation note* Diagnosis Onset Date Resolution Status Admit Date Family history of thyroid nodule acuteJune 2024 1:09pmHigh serum triiodothyronine (T3)acuteJune 2024 1:09pm [facility] Work Phone: 1(806) 293-164706-24-2025 Evaluation note* Diagnosis Onset Date Resolution Status Admit Date Family history of thyroid nodule acuteJune 2024 1:09pmHigh serum triiodothyronine (T3)acuteJune 2024 1:09pmFatigueacuteSeptember 2024 8:24amHair lossacuteSeptember 2024 8:24amObesity (BMI 35.0-39.9 without comorbidity)acuteSeptember 2024 8:24am Primary hypertensionacuteSeptember 2024 8:24am [facility] Work Phone: 1(657) 726-699505-19-2025 History of Present illness Narrative* Tierney Bass [...] LUMPECTOMY Right x2 in right breast, benign, [facility] SECTION, LOW TRANSVERSE 03/22/2021 CHOLECYSTECTOMY 08/27/2021 [...] nursing note reviewed. Exam conducted with a aircraft power plant assembler present. Assessment/Plan Encounter Diagnosis Name Primary? [...] of Tierney Bass NP documented in this encounterSullivan County Memorial HospitalNnkayplgxm57-70-2269 Evaluation note* Diagnosis Onset Date Resolution Status Admit Date Anxiety acuteMay 2024 8:02amBMI 36.0-36.9,adultacuteMay 2024 8:02amMigraines acuteMay 2024 8:02amWellness examinationacuteMay 2024 8:02amFamily history of thyroid noduleacuteJune 2024 1:09pmHigh serum triiodothyronine (T3)acuteJune 2024 1:09pm [facility] Work Phone: 1(705) 969-622303-12-2025 History of Present illness Narrative* Lindsey Pearl, DO - 10/13/2024 9:00 AM EDT Images from the original note were not included. [facility] [id number] CONSULT NOTE CHIEF COMPLAINT Chief Complaint Patient [...] tumor of the right breast removed in [place], [place] when she was 17 years of [...] over 2 years. 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 All mammograms ultrasounds and biopsy reports were reviewed by me. In the right axilla on ultrasound there was a inclusion cyst. She stated that she felt something but it has gone away and does not feel any further lumps. ] [facility] [address] [place] [address] Surgical Pathology Consultation Patient Name:SIVA WEEMS:1995 (Age: 28)Gender:FTaken:10/04/2024Reported:10/07/2024Physician(s):Magno Staley DO ([phone])Copy To:MD OFELIA Lam JENNICOBRE VALLEY REGIONAL MEDICAL CENTERAccession #:[id number]. Rec. #:[id number]: #[id number] Final Pathologic Diagnosis Left breast,6 o'clock, 3 [...] data Mammography diagnostic bilateral with CAD Order: [id number] Status: Final result Visible to patient: Yes (not seen) Next appt: None Dx: Other specified disorders of breast; ... 0 Result Notes Assessment Overall 4 - Suspicious Breast Density Overall Breast Composition c - Heterogeneously dense Details Reading Physician Reading Date Result Priority Yogi Napier MD [phone] 09/29/2024 Routine Physician Responsible for MQSA Outcome Reason Yogi Napier MD Signed Narrative & Impression SIVA WEEMS 1995 [id number], [id number], [id number] EXAM: MAMM DIAGNOSTIC BILATERAL W CAD, US [...] 4 c BIOPSY FDA Accredited [facility] [place] [facility] [address], [facility] [address] Exam Ended: 09/29/24 08:24 EST Last Resulted: [...] abnormal data Ultrasound breast limited left Order: [id number] Status: Final result Visible to patient: Yes (seen) Next appt: None Dx: Other specified disorders of breast; ... 0 Result Notes Assessment Overall Left 4 - Suspicious 4 - Suspicious Breast Density Overall Breast Composition c - Heterogeneously dense Details Reading Physician Reading Date Result Priority Yogi Napier MD [phone] 09/29/2024 Routine Physician Responsible for MQSA Outcome Reason Yogi Napier MD Signed Narrative & Impression [facility] 1995 [id number], [id number], [id number] EXAM: MAMM DIAGNOSTIC BILATERAL W CAD, US [...] data Ultrasound axilla (breast) right limited Order: [id number] Status: Final result Visible to patient: Yes (not seen) Next appt: None Dx: Lump of axilla, right 0 Result Notes Assessment Overall Right 4 - Suspicious 4 - Suspicious Breast Density Overall Breast Composition c - Heterogeneously dense Details Reading Physician Reading Date Result Priority Yogi Napier MD [phone] 09/29/2024 Routine Physician Responsible for MQSA Outcome Reason Yogi Napier MD Signed Narrative & Impression SIVA WEEMS 1995 [id number], [id number], [id number] EXAM: MAMM DIAGNOSTIC BILATERAL W CAD, US [...] Procedure Laterality Date BREAST EXCISIONAL BIOPSY Right 2014 excisonal biopsy BREAST EXCISIONAL BIOPSY Right 2013 excisonal biopsy SECTION TONSILLECTOMY WISDOM TOOTH EXTRACTION [...] in the sitting and supine positions with aircraft power plant assembler present. Neurological: She is alert and [...] patient/family/caregiver Referring and communicating with other health director career services Fibroadenoma of left breast [D24.2] Lindsey Pearl DO This note was created with the assistance of a speech recognition program. While intending to generate a timely document that accurately reflects the content of the visit, no guarantee can be provided that every grammatical or spelling mistake has been or will be identified or corrected. Thank you for your understanding. documented in this encounterMain Campus Medical Center03-05-2025 Miscellaneous Notes* Telephone Encounter - Bel Ennis RN - 10/06/2024 12:45 PM EST Call placed to patient to check status following recent breast biopsy. Patient reports no problems.She was encouraged to contact the Breast Center if she develops any new problems at biopsy site. Voices understanding. documented in this encounterMain Campus Medical Center03-05-2025 Telephone encounter Note* Telephone Encounter - Bel Ennis RN - 10/06/2024 12:45 PM EST Call placed to patient to check status following recent breast biopsy. Patient reports no problems.She was encouraged to contact the Breast Center if she develops any new problems at biopsy site. Voices understanding. [facility] History of Present illness Narrative* Najma LAZARO De Leon - 09/09/2024 9:50 AM EST Reason for [...] LUMPECTOMY Right x2 in right breast, benign, [facility] SECTION, LOW TRANSVERSE 03/22/2021 CHOLECYSTECTOMY 08/27/2021 [...] of: Magno Staley DO documented in this encounterSullivan County Memorial HospitalXwrercdcej61-40-8189 History of Present illness Narrative* Randi Mahan [...] LUMPECTOMY Right x2 in right breast, benign, [facility] SECTION, LOW TRANSVERSE 03/22/2021 CHOLECYSTECTOMY 08/27/2021 [...] behalf of MAKSIM Gonzalez documented in this encounterSullivan County Memorial HospitalOxqtpaloeq33-30-3993 History of Present illness Narrative* Rachel Stuart [...] LUMPECTOMY Right x2 in right breast, benign, [facility] SECTION, LOW TRANSVERSE 03/22/2021 CHOLECYSTECTOMY 08/27/2021 [...] nursing note reviewed. Exam conducted with a aircraft power plant assembler present. Assessment/Plan Encounter Diagnosis Name Primary? [...] of Magno Staley DO documented in this encounterSullivan County Memorial HospitalTaynknzxfz37-25-0889 History of Present illness Narrative* Najma De [...] LUMPECTOMY Right x2 in right breast, benign, [facility] SECTION, LOW TRANSVERSE 03/22/2021 CHOLECYSTECTOMY 08/27/2021 [...] nursing note reviewed. Exam conducted with a aircraft power plant assembler present. Vitals: Estimated body mass index [...] of: Magno Staley DO documented in this encounterSullivan County Memorial HospitalAxzckbhyua09-71-8885 History of Present illness Narrative* Najma De Leon, CRAB PICKER - 04/29/2024 8:50 AM EDT Reason for [...] LUMPECTOMY Right x2 in right breast, benign, [facility] SECTION, LOW TRANSVERSE 03/22/2021 CHOLECYSTECTOMY 08/27/2021 [...] nursing note reviewed. Exam conducted with a aircraft power plant assembler present. Vitals: Estimated body mass index [...] of: Magno Staley DO documented in this encounterSullivan County Memorial HospitalFkmafrmxyc60-39-3636 History of Present illness Narrative* Najma De [...] LUMPECTOMY Right x2 in right breast, benign, [facility] SECTION, LOW TRANSVERSE 03/22/2021 CHOLECYSTECTOMY 08/27/2021 [...] nursing note reviewed. Exam conducted with a aircraft power plant assembler present. Vitals: Estimated body mass index [...] of: Magno Staley DO documented in this encounterSullivan County Memorial HospitalRzirdgujne20-99-4852 Evaluation note* Encounter Date Diagnosis Assessment Notes [...] verbalizes understanding and agreement with treatment plan. [facility] Other 12-21-2023 Evaluation note* Encounter Date Diagnosis [...] verbalizes understanding and agrees to treatment plan. Jul,Edema of right lower extremity (ICD-10 - R60.0)Discussed symptoms, letter provided that she needs a standing desk. Jul,Migraine without status migrainosus, not intractable, unspecified migraine type (ICD-10 - G43.909)She reports daily headaches, uses Tyelnol/ Ibuprofen as needed for symptoms. Has been keeping record of headaches.Does notes that sleep has been off since the increased anxiety, increasing her Buspar. Also discussed ruling out reason for headaches as nothing has this have been consistent everyday--we discussed further imaging with MRI- she is going to call for coverage through her insurance. Pt will call if she wants to go forward further imaging. [facility] Other 06-21-2023 Evaluation note* Encounter Date Diagnosis Assessment Notes Treatment Notes Treatment Clinical Notes Jan, Anxiety (ICD-10 - F41.9) Remains stable on current therapeutic dose. Patient is encouraged to stay active and remain involved. Try to keep themselves busy. Take medication as directed and we will continue to monitor. Jan,Encounter for initial prescription of contraceptive pills (ICD-10 - Z30.011)The risks and benefits of estrogen was discussed with the patient including HTN, hypercoagulability, nausea and medication interactions. Pt. advised that hormonal contraception does NOT provide STD protection. Call with any side effects. [facility] Other 06-15-2023 Evaluation note* Encounter Date Diagnosis Assessment Notes Treatment Notes Treatment Clinical Notes Jan, Anxiety (ICD-10 - F41.9) [facility] Other 12-18-2022 Evaluation note* Encounter Date Diagnosis Assessment Notes Treatment Notes Treatment Clinical Notes Jul, Contact with and (fernández spected) exposure to other viral communicable diseases (ICD-10 - Z20.828) Jul,Viral URI (ICD-10 - J06.9)Symptoms appear viral today. Bacteria infections take several days to weeks of symptoms to develop.Use saline nasal spray before prescription one and you have better results. Recommend OTC medications such as Mucinex DM, Delsym, Cepocal Lozenges Continue tylenol/ibuprofen for general discomfort. Encourage fluids. Symptoms should improve within the next 10-14 days. If no improvement of symptoms in 14 days call primary care provider to discuss antibiotic therapy [facility] Other 10-16-2022 Evaluation note* Encounter Date Diagnosis Assessment Notes Treatment Notes Treatment Clinical Notes May, Contact with and (fernández spected) exposure to other viral communicable diseases (ICD-10 [...] treatment plan. Patient left in stable condition [facility] Other 04-03-2022 Evaluation note* Encounter Date Diagnosis Assessment Notes Treatment Notes Treatment Clinical Notes Nov, Contact with and (fernández spected) exposure to other viral communicable diseases (ICD-10 - Z20.828) Nov,ight otitis media, unspecified otitis media type (ICD-10 - H66.91) Nov,cute otitis externa of right ear, unspecified type (ICD-10 - H60.501) Nov,ther Additional time spent conducting pre-visit phone call, screening for symptoms, instructions on social distancing, application and removal of PPE, and cleaning of examination room, equipment and supplies was preformed. Patient education given for testing methodology and results. Patient care instructions given in writting by [facility] document. [facility] Other 01-05-2022 Evaluation note* Encounter Date Diagnosis Assessment Notes Treatment Notes Treatment Clinical Notes Aug, Contact with and (fernández spected) exposure to other viral communicable diseases (ICD-10 - Z20.828) Aug,OVID-19 virus infection (ICD-10 - U07.1) Today you tested positive for the COVID virus. This mean you need to follow all [facility] quarantine guidelines found at coronavirus.[place].gov. It is important to rest, increase fluids, and stay at home. Contact PCP and inform them of results. Medications like Mucinex, Cepacol, Tylenol, saline nasal sprayare over the counter medications that can help [...] given, that she denies chest pain, sob, presyncopal/syncopal episodes, edema, crackles in the lungs, lung sounds present bilaterally, or calf tenderness, more ominous diagnoses are unlikely. If symptoms worsen, advised to go to the ER. Aug,ther Additional time spent conducting pre-visit phone call, screening for symptoms, instructions on social distancing, application and removal of PPE, and cleaning of examination room, equipment and supplies was preformed. Patient education given for testing methodology and results. Patient care instructions given in writting by [facility] document. [facility] Other 11-02-2021 Evaluation note* Encounter Date Diagnosis Assessment Notes Treatment Notes Treatment Clinical Notes Jun, Primary hypertension (ICD-10 - I 10) Discussed with patient to restart Labetaolol at 100mg per day for blood pressure control. Discussedrisk factors of blood pressure being this high [...] You have been given relevant education handouts. [facility] Other 08-01-2021 History general Narrative - Reported* Type Description Date Medical History Migraines Medical HistoryGallstonesSurgical HistorytonsillectomySurgical Historylumpectomy x 2Surgical Historyc-section03/2021Hospitalization Historychildbirth03/2021 Hospitalization Historyelevated liver largkwp29/2021 Skip Hop Other 08-01-2021 History general Narrative - Reported* Type Description Date Medical History Migraines Medical HistoryGallstonesSurgical HistorytonsillectomySurgical Historylumpectomy x 2Surgical Historyc-section8/urgical Historygall bladder08/2021 Hospitalization Historychildbirth03/2021Hospitalization Historyelevated liver jcoveop45/2021 Skip Hop Other Evaluation noteNo [email or web address] Other Evaluation noteNortMill33 Other Evaluation note* Diagnosis Onset Date Resolution Status Candidal intertrigo acute [facility] Work Phone: Evaluation note* Diagnosis Encounter for initial prescription of contraceptives, unspecified contraceptive Mastitis Inflammatory disease of breast Breast tenderness in female documented in this encounter [facility] HealthcareEvaluation note* Diagnosis Encounter for weight management documented in this encounter [facility] HealthcareEvaluation note* Diagnosis Encounter for insertion of intrauterine contraceptive device (IUD) Encounter for insertion of mirena IUD documented in this encounter [facility] HealthcareEvaluation note* Diagnosis Intrauterine device surveillance documented in this encounter [facility] HealthcareEvaluation note* Diagnosis Weight gain Other symptoms concerning nutrition, metabolism, and development Encounter for weight management documented in this encounter [facility] HealthcareEvaluation note* Diagnosis Encounter for weight management control counseling Phyllodes tumor of breast Other specified disorders of breast documented in this encounter [facility] HealthcareEvaluation note* Diagnosis Fibroadenoma of left breast- Primary History of benign phyllodes neoplasm of breast Family history of malignant neoplasm of ovary in first degree relative documented in this encounter [facility] SystemEvaluation note* Diagnosis Encounter for general adult medical examination without abnormal findings- Primary documented in this encounter [facility] SystemEvaluation noteNo assessment information available [facility] Work Phone: Evaluation note* Diagnosis Encounter for weight management documented in this encounter [facility] HealthcareEvaluation note* Diagnosis Nontoxic multinodular goiter- Primary Nontoxic multinodular goiter Thyroid nodule Nontoxic uninodular goiter Thyroid dysfunction Unspecified disorder of thyroid documented in this encounter [facility] HealthcareEvaluation note* Diagnosis Thyroid nodule- Primary Nontoxic uninodular goiter Nontoxic multinodular goiter Nontoxic multinodular goiter documented in this encounter [facility] HealthcareEvaluation note* Diagnosis Multinodular goiter- Primary Nontoxic multinodular goiter Abnormal finding on thyroid function test Encounter for dietary consultation Class 2 obesity due to excess calories without serious comorbidity with body mass index (BMI) of 36.0 to 36.9 in adult documented in this encounter [facility] HealthcareHistory general Narrative - Reported* Type Description Date Medical History Migraines Surgical HistorytonsillectomySurgical Historylumpectomy x 2 Skip Hop Other History general Narrative - ReportedNort Circl Other History general Narrative - ReportedNort Circl Other Hisdjfy general Narrative - [facility]ortedN[facility] Circl Other InstructionsNot on filedocumented in this encounter [facility] filedocumented in this encounter [facility] SystemInstructionsNot on filedocumented in this encounter [facility] SystemReason for referral (narrative)No reason for referral information availableL[facility] Work Phone: Summary Purpose Family History Relationship Condition Age at Onset Recorded Date/T shabnam brother Hypertension Unknown motherHypertensionUnknownDiabetes mellitusUnknownfatherHypertensionUnknownfather Family history of mental disorderUnknownAnxietyUnknownmotherDepressionUnknown Family history of mental disorderUnknown Advance Directives Advance Directive Response Recorded Date/ [...] section and content) DATE CREATED AUTHOR 03/04/2018 [facility] DATE CREATED AUTHOR AUTHOR'S ORGANIZ ATION 05/23/2020 [facility] DATE CREATED AUTHOR AUTHOR'S ORGANIZ ATION 07/30/[address] [facility] DATE CREATED AUTHOR AUTHOR'S ORGANIZ ATION 10/09/2024 [facility] DATE CREATED AUTHOR AUTHOR'S ORGANIZ ATION 10/15/2024 [facility] DATE CREATED AUTHOR AUTHOR'S ORGANIZ ATION 11/30/2024 [facility] DATE CREATED AUTHOR AUTHOR'S ORGANIZ ATION 03/22/2025 [facility] DATE CREATED AUTHOR AUTHOR'S ORGANIZ ATION 03/24/2025 [facility] REASON FOR VISIT (unrecogniz ed section and content) ReasonCommentsContraceptionReasonCommentsfollow up medicationReasonComments ContraceptionMirena insertReasonCommentsString checkReasonCommentsWeight ManagementPt present today for Adipex #2 visit.ReasonCommentsBreast Mass Fibroadenoma of left breast, biopsy performed 10/04/24, referred by Dr. Staley ReasonCommentsWeight ManagementReasonCommentsThyroid NoduleNew patient : thyroid noduleSpecialtyDiagnoses / ProceduresReferred By ContactReferred To Contact Otolaryngology Diagnoses Nontoxic single thyroid nodule Procedures HI UNLISTED EVALUATION AND MANAGEMENT SERVICE [facility] [address] [address] Phone: tel: fax: Jose Mcrae, [address] [place] [address] Phone: tel: fax: Ref[facility]Status[facility] DateExpiration DateVisits RequestedVisits [id number] NoduleFNA ReasonCommentsThyroid ProblemSpecialtyDiagnoses / ProceduresReferred By Contact Referred To ContactEndocrinology Diagnoses Other specified abnormal findings of blood chemistry Procedures HI OFFICE/OUTPATIENT NEW MODERATE MDM 45 MINUTES Indy Gilbert NP [facility] Referrals ONLY fax: Candice Marvin MD [address] [place] [address] Phone: tel: fax: Referral IDStatusReasonStart DateExpiration DateVisits RequestedVisits [id number] DateComments Jmxajdu4703/25/2025 Care Teams (unrecognized sec tion and content) Team Status: Active Member Role Status Dates Indy Gilbert APRN RUG DESIGNER-C Primary Care Provider Active Team Status: Inactive Member Role Status Dates Indy Gilbert APRN RUG DESIGNER-C Primary Care Provider, Attending Provider Active Start: May 28, 2024 End: May 28, 2024Team MemberRelationshipSpecialtyStart DateEnd Date Indy Gilbert NP [address] [place] [address] PCP - GeneralFamily Medicine10/27/23Team MemberRelationshipSpecialtyStart DateEnd Date Indy Gilbert NP [address] [place] [address] PCP - GeneralFamily Medicine10/27/23Team MemberRelationshipSpecialtyStart DateEnd Date Indy Gilbert NP [address] [place] [address] PCP - GeneralFamily Medicine10/27/23Team MemberRelationshipSpecialtyStart DateEnd Date Indy Gilbert NP [address] [place] [address] PCP - GeneralFamily Medicine10/27/23Team MemberRelationshipSpecialtyStart DateEnd Date Indy Gilbert NP [address] [place] [address] PCP - GeneralFamily Medicine10/27/23Team MemberRelationshipSpecialtyStart DateEnd Date Indy Gilbert NP [address] [facility] [place] [address] PCP - GeneralFamily Medicine10/27/23Team MemberRelationshipSpecialtyStart DateEnd Date Indy Gilbert NP [address] [facility] [place] [address] PCP - GeneralFamily Medicine10/27/23Team MemberRelationshipSpecialtyStart DateEnd Date Indy Gilbert NP [address] [facility] [place] [address] PCP - GeneralFamily Medicine10/27/23Team MemberRelationshipSpecialtyStart DateEnd Date Indy Gilbert APRN-RUG DESIGNER [address] [facility] [place] [address] PCP - GeneralNurse Practitioner12/23/22Team MemberRelationshipSpecialtyStart Date End Date Indy Gilbert APRN-BELIA [address] [facility] [place] [address] PCP - GeneralNurse Practitioner12/23/22Team MemberRelationshipSpecialtyStart Date End Date Indy Gilbert NP [address] [facility] [place] [address] PCP - GeneralFamily Medicine10/27/23Team MemberRelationshipSpecialtyStart DateEnd Date Indy Gilbert APRN-RUG DESIGNER [address] [facility] [place] [address] [address] - [facility]12/23/22 Team Status: Inactive Member Role Status Dates Indy Gilbert APRN RUG DESIGNER-C Primary Care Provider, Attending Provider Active Start: December 07, 2024 End: December 07, 2024Team MemberRelationshipSpecialtyStart DateEnd Date Indy Gilbert NP [address] [place] [id number] PCP - [facility] Medicine10/27/23Team MemberRelationshipSpecialtyStart DateEnd Date Indy Gilbert NP [address] [place] [id number] PCP - [facility]10/27/23 Team Status: Inactive Member Role Status Dates Indy Gilbert APRN RUG DESIGNER-C Primary Care Provider Active Start: December 07, 2024 End: December 07, 2024Indy Gilbert APRN RUG DESIGNER-CAttending ProviderActiveStart: December 07, 2024 End: December 07, 2024 Team Status: Active Member Role Status Dates Indy Gilbert APRN RUG DESIGNER-C Primary Care Provider Active Start: January 17, 2025 Yevgeniy Barrios ProviderActiveStart: January 17, 2025 Team Status: Inactive Member Role Status Dates Indy Gilbert APRN RUG DESIGNER-C Primary Care Provider Active Start: January 25, 2025 End: January 25, 2025Indy Gilbert APRN RUG DESIGNER-CAttending ProviderActive Start: January 25, 2025 End: January 25, 2025 Team Status: Active Member Role Status Dates Indy Gilbert APRN RUG DESIGNER-C Primary Care Provider Active Start: February 07, 2025 Indy Gilbert APRN RUG DESIGNER-CAttending ProviderActiveStart: February 07, 2025 Team MemberRelationshipSpecialtyStart DateEnd Date Indy Gilbert NP [address] [facility] [place] [address] [address] PCP - GeneralFamily Medicine10/27/23Team MemberRelationshipSpecialtyStart DateEnd Date Indy Gilbert NP [address] [facility] [place] [address] PCP - GeneralFamily Medicine10/27/23Team MemberRelationshipSpecialtyStart DateEnd Date Indy Gilbert NP [address] [facility] [place], [place] [id number] PCP - GeneralFamily Medicine10/27/23Team MemberRelationshipSpecialtyStart DateEnd Date Indy Gilbert NP [address] [facility] [place], [place] [id number] PCP - GeneralFamily Medicine10/27/23 Team Status: Active Member Role Status Dates Indy Gilbert APRN RUG DESIGNER-C Primary Care Provider Active Start: February 22, 2025 Jose Mcrae DOAttending ProviderActiveStart: February 22, 2025 Team Status: Inactive Member Role Status Dates Jose Mcrae DO Attending Provider Active S tart: March 07, 2025 End: March 07, 2025Team MemberRelationshipSpecialtyStart DateEnd Date Indy Gilbert NP [address] [facility] [place] [address] [address] PCP - GeneralFamily Medicine10/27/23Team MemberRelationshipSpecialtyStart DateEnd Date Indy Gilbert NP [address] [facility] [place] [address] [place] [address] PCP - [facility]10/27/23 Team Status: Active Member Role Status Dates Candice Marvin MD Attending Provider Active Sta rt: March 21, 2025 Team Status: Inactive Member Role Status Dates Indy Gilbert APRN RUG DESIGNER-C Primary Care Provider Active Start: April 122024 End: April 12, 2025Indy Gilbert APRN RUG DESIGNER-CAttending ProviderActive Start: April 12, 2025 End: April 12, 2025 Goals (unrecognized section and content) Goals may [...] BE BASED ON THE PRIMARY CLINICAL RECORDS. [facility] [employer] [facility]. provides no warranty or guarantee of the accuracy or completeness of information in this document.
[2025-05-25 08:21] LABS: Iron 66.0 ug/dL (50.0-170.0); Percent Iron Saturation 18.5 %; Total Iron Binding Capacity 357.0 ug/dL (250.0-450.0)
[2025-05-25 09:41] LABS: Ferritin 187.0 ng/mL (8.0-252.0); Folate 14.60 ng/mL (8.60-58.90)
[2025-05-26 07:08] LABS: Vitamin B12 1204 pg/mL (232-1245)
== END 2025-05-25 07:02 | disposition home or self-care (01) ==
LOC: LAB 07:03
PROVIDERS: PCP Nurse Practitioner Family; Visit Provider Nurse Practitioner Family
DX: L65.9 Nonscarring hair loss, unspecified (principal); R53.83 Other fatigue
CPT/HCPCS: 36415; 82306; 82607; 82728; 82746; 83540; 83550

== ENCOUNTER 2025-06-13 16:43 | Outpatient (OUT) | payer BC, SELFPAY ==
--- OUTSIDE RECORDS SUMMARY | 2025-06-07 03:30 | XMS_ITS | Continuity of Care Document ---
Author Organization [facility] Address [address] [place] [address] Phone Care Team Providers Care Log Yard Derrick Operator Name Role Phone Candice Marvin MD Attending Provider [phone] Indy Gilbert APRN Primary Care Provider Indy Gilbert APRN Attending Provider Care Teams Patient Care Team Team Status: Active Member Role/Relationship Status Dates Indy Gilbert APRN WELL DRILL OPERATOR-C Primary Care Provider Active Visit Care Team Team Status: Active Member Role/Relationship Status Dates Candice Marvin MD Attending Provider Active Sta rt: March 21, 2025 Visit Care Team Team Status: Inactive Member Role/Relationship Status Dates Indy Gilbert APRN WELL DRILL OPERATOR-C Primary Care Provider Active Start: April 122024 End: April 12, 2025Indy Gilbert APRN WELL DRILL OPERATOR-CAttending ProviderActive Start: April 12, 2025 End: April 12, 2025 Patient Care Team Team Status: Active Member Role/Relationship Status Dates Indy Gilbert APRN WELL DRILL OPERATOR-C Primary Care Provider Active Start: May Indy Gilbert APRN WELL DRILL OPERATOR-CAttending ProviderActiveStart: May 25, 2025 Patient Care Team Team Status: Inactive Member Role/Relationship Status Dates Indy Gilbert APRN WELL DRILL OPERATOR-C Primary Care Provider Active Start: June End: June 07, 2025Indy Gilbert APRN WELL DRILL OPERATOR-CAttending ProviderActive Start: June 07, 2025 End: June 07, 2025 Chief Complaint and Reason for Visit Chief Complaint Admit Date Endocrinology f/u April 12, 2025 8:24am knee pain/LVM June 07, 2025 7 :57am Reason for Visit Admit Date Fatigue April 12, 2025 8:24am Hair loss April 12, 2025 8:24am Obesity (BMI 35.0-39.9 without comorbidi ty) April 12, 2025 8:24am Primary hypertension April 12, 2025 8:24am Anxiety June 07, 2025 7 :57am Depression June 07, 2025 7 :57am Injury of left knee June 07, 2025 7 :57am Left knee pain June 07, 2025 7 :57am Allergies, Adverse Reactions, Alerts Allergen Type Severity Reaction Last Updated Verified Status amoxicillin Allergy Unknown Hives June 07, 2025 7:59am Yes Active red dye Allergy Unknown Swelling of Lip/Tongue/Throat, lip swelling June 07, 2025 7:59am Yes Active Social History Smoking Status Status Start Date End Date Date of Observa tion Never smoked tobacco (finding) August 27, 2021 10:09am Observation Status Observation Response Date of Response Legal Sex Female (finding) Sex Assigned At BirthFemaleMay 1995 Family History Relationship Condition Age at Onset Recorded Date/T shabnam brother Hypertension Unknown motherHypertensionUnknownDiabetes mellitusUnknownfatherHypertensionUnknownfather Family history of mental disorderUnknownAnxietyUnknownmotherDepressionUnknown Family history of mental disorderUnknown Problems Active Problems Problem Diagnosis/Recorded Date Onset Date Status Faiza umaña Family history of thyroid nodule January 25, 2025 1:13pm Un known Active FatigueSeptember 2024 7:44amUnknownActiveAnxietyOctober 2023 7:38am UnknownActiveDepressionNovember 2024 8:18amUnknownActiveWellness examinationApril 2024 12:04pmUnknownActiveMigrainesOctober 2023 7:38amUnknownActiveMotion sicknessNovember 2023 4:06pmUnknownActiveHigh serum triiodothyronine (T3)January 25, 2025 1:10pmUnknownActivePrimary hypertensionOctober 2023 7:38amUnknownActiveBMI 36.0-36.9,adultMay 2024 9:00amUnknownActiveObesity (BMI 35.0-39.9 without comorbidity)April 12, 2025 7:51amUnknownActiveLeft knee painNovember 2024 8:16amUnknown ActiveHair lossSeptember 2024 7:44amUnknownActiveInjury of left knee June 07, 2025 8:17amUnknownActiveCandidal intertrigoOctober 2023 8:04amUnknownActiveInactive/Resolved Problems Problem Diagnosis/Recorded Date Onset Date Status C omments Gallbladder calculus without cholecystitis and no obstruction July 10, 2021 4:41pm Unknown Resolved Proble m List clean-up per request of Phys. EHR Cmte UTI (urinary tract infection) July 10, 2021 4:41pm Unknown Resolved Proble m List clean-up per request of Phys. EHR Cmte Gestational hypertension March 25, 2021 11:13am Unknown Resolved Problem List clean-up per request of Phys. EHR Cmte Eloped from emergency department July 19, 2021 4:12pm Unknown Resolved Problem List clean-up per request of Phys. EHR Cmte , delivered March 23, 2021 11:45am Unknown Resolved Problem List clean-up per request of Phys. EHR Cmte Choledocholithiasis July 10, 2021 5:55pm Unknown R esolved Problem List clean-up per request of Phys. EHR Cmte Elevated LFTs July 10, 2021 4:41pm Unknown Resolve d Problem List clean-up per request of Phys. EHR Cmte Hyperbilirubinemia July 11, 2021 10:44am Unknown Resolved Problem List clean-up per request of Phys. EHR Cmte Status post delivery March 24, 2021 12:01pm Unknown Resolved Proble m List clean-up per request of Phys. EHR Cmte Gallstone pancreatitis July 11, 2021 5:52pm Unknown Resolved Problem List clean-up per request of Phys. EHR Cmte Cholelithiasis July 10, 2021 5:56pm Unknown Resolv ed Problem List clean-up per request of Phys. EHR Cmte Medications Medication Status Dose Units Route Directions Qty Days Refills S tart Date Stop Date End Date Reason(s) Instructions Adherence Buspirone 10 mg tablet Discontinued 10 MG PO Twice daily 18 0 90 1 January 23, 2024 9:06am April 26, 2024 12:01pmBuspirone 10 mg dpgjfuFivujkxzetdm56KMSQWgrnz daily 709480Llatoexze2023 12:01pmSept2023 7:53amBuspirone 10 mg qmdhraAnonshyezcuc85ROFKGszsi jpoha184225Pitqypiln 25th, 2024 7:53amApril 2024 8:10amMeclizine 25 mg zlkosdVqamvrtxpfdq69OUYFUcwtd daily as needed for motion yembamjb422Wcutdvfe 18th, 2024 12:00amMay 2024 7:15amMotion sickness Motion sickness, initial encounterBuspirone 10 mg htjjrtRjfnbfnmiooy69PZFKMmpgf gzbcg829672Kpcca 2024 8:10amSeptember 2024 3:04pmMetformin 500 mg kgphmnPcsjbxxlxfmy639UBWWMktry32657Fqetyrsqq 9th, 2025 9:22amNovember 2024 8:02amBuspirone 10 mg vfovlhWfbzid33KDNAHomlp yvwjy028510Fuudnmubn 10th, 2025 3:04pmComplies with drug therapyLabetalol 200 mg MsexaiXbihqrsucnva139FXEYFqona times dailyJuly 2020 11:00pmAugust 2020 11:14amAmoxicillin 500 mg zdwzjfeLyfywdpekcxq400AAKBSgmvr dailyDecember 2020 12:00amJanuary 2021 8:45amStarted 07/08/21 for 10 day courseOndansetron Hcl (Zofran) 4 mg Tablet Paymbyxilrsu0RLLFU8J as needed for nauseaJune 2020 11:00pmAugust 2020 11:14amPrenatal Vit 78-Mqje-Xogri-Dha ( + Dha) 28 mg iron- 975 mcg-200 mg Combo WwmdNwocejbzgpej7OEOopz 2020 11:00pmDecember 2020 4:32pm Acetaminophen 500 mg WcdhrhOzmafkjxqpbd9430AKMWW7B006Smmeus 2020 11:00pm July 09, 2021 4:32pmIbuprofen 600 mg HvgalcGemamoppsqei722AJNZL0Q240Mdlyed 20th, 2021 11:00pmDece2020 4:32pmDocusate Sodium (Colace) 100 mg qbzpccwVltohxnjktzg413LUGBAaarn at mdzslet779QfqqiwMarch 23, 2021 11:00pmDeaspirus [facility]2020 4:32pmLabetalol 200 mg qnqlclEccnvadkkvej826ZJTXRbioe uewtw546Aqnayz2020 11:00pmDecebanner 2020 4:32pmAmoxicillin 500 mg capsule Pwidqhntzssd649LZBTHpzpm dailyDe2020 12:00amDeceer 2020 10:46amLabetalol 200 mg bieraxCynupfwaqxcv237HGWSBpspoVyavujsp 6th, 2021 4:45pm October 06, 2023 1:40pmTramadol (Ultram) 50 mg vtmofhDgwmevhqxpkb75HYYDP1M as needed for pefy8575Pkddtlb 2021 12:00amMarch 2023 1:41pm Cholelithiasis Calculus of gallbladder without cholecystitis without obstruction1/2 - 1 tab po q 6 hours prn painFluticasone Propionate 50 mcg/actuation spray,suspensionActive 1SPRAYINTRANASALDailyOhiohealth [facility] 2023 12:00amComplies with drug therapyBuspirone 10 mg opklwxPderziwplcqp76USUDUisgk dailyOhiohealth [facility]ide [facility] 2023 12:00amMarch 2023 2:08pmBuspirone 10 mg gnwxdhYgqjcddpqvrx23PBFWVhpve ktmwb081111Aifxq 2023 2:08pmJune 2023 9:06amNystatin 100,000 unit/gram fbfdeWpjguvnsgawd5IEAIBM TOPICALTwice yelhb119Lugmrnm 2023 11:00pmNovember 2024 7:59am Intertriginous candidiasis Candidiasis of skin and nailMetformin 500 mg tlnvpxSsiinwikeqzd042XYZHPulfhBxz 2024 11:00pmSeptember 2024 9:22amPhentermine (Adipex-P) 37.5 mg tablet Vrfckbkxcukj68.5MGPODailyMay 2024 11:00pmJune 2024 12:30pmmust administer 30 minutes before or 1-2 hours after breakfastEtonogestrel-Ethinyl Estradiol (Nuvaring) 0.12-0.015 mg/24 hr snmyPhxrqq9ECO RINGVAGINALEVERY 4 WEEKS December 06, [address] for 3 weeks of a 4-week cycleComplies with drug therapyFerrous Sulfate 134 mg (27 mg iron) fcqsvmIjyuxh320NPXTTmrndQdn 2024 11:00pmComplies with drug therapyCholecalciferol (Vitamin D3) 25 mcg (1,000 unit) lzhergaKxidld75YIOUSVpupkBur 2024 11:00pmComplies with drug therapy Magnesium Citrate 100 mg hojcbqiSuxszq065DKZFYuohpCmk 2024 11:00pmComplies with drug therapyAscorbate Calcium (Vitamin C) 500 mg xiiwyoDuuhua335SWPRRqbfs December 06, 2024 11:00pmComplies with drug therapyOmega-3 Fatty Acids 500 mg rbebnxsEmnyxc774BUKQDrnnwIah 2024 11:00pmComplies with drug therapy Hydroxyzine Hcl 25 mg evwizcRsrpcv01BZIJDfywz daily as needed for chirgbm17681 June 07, 2025 12:00amAnxiety Anxiety disorder, unspecifiedComplies with drug therapyEscitalopram Oxalate (Lexapro) 5 mg aodsflKkurjd8IFVBPehob36994Lcxwllik 4th, 2025 12:00amDepression Depression, unspecifiedComplies with drug therapy Immunizations Immunization Event Date Not Given Reason Dose Number Cigarette Vendor Lot Number Reason(s) Given Vaccine Information Statement (VIS) Detail Administration Location Tetanus, Diphtheria, Pertussis (Tdap) March [address] [place] [address] Relevant Diagnostic Tests and/or Laboratory Data Laboratory Results Test Collection Date/Time Result Date/Time Result Interpretation Reference Range Result Comment Performing Site Free Thyroxine March 21, 2025 2:06pm March 21, 2025 2:06pm 1.04 ng/dL 0.76-1.46Thyroid Stimulating Hormone 3rd GenAugust 2024 2:06pmAugust 2024 2:06pm0.956 u[iU]/mL0.358-3.740Free TriiodothyronineAugust 2024 2:06pmAugust 2024 2:06pm2.37 pg/mL2.18-3.98Vitamin B12 LevelOctober 2024 6:11amOctober 2024 6:46bq0524 pg/wV130-4449Qwgoarbku at: [facility] [id number] Director: Augustine Layton PhD, Phone: [phone] 22nd, 2025 6:11amOctober 2024 6:11am 14.60 ng/mL8.60-58.9025-Hydroxy Vitamin D TotalOct2024 6:11amOctober 2024 6:11am54.9 ng/mL<20 ng/mL Vit D gubtcxtsb35-<30 ng/mL Vit D axbeeovmpgir37-785 ng/mL Vit D sufficient>100 ng/mL Potential ToxicityFerritin May 25, 2025 6:11amOctober 2024 6:87ud083.0 ng/mL8.0-252.0Iron SaturationOct2024 6:11amOctober 2024 6:11am18.5 %Iron Level May 25, 2025 6:11amOctober 2024 6:11am66.0 ug/dL50.0-170.0Total Iron Binding CapacityOct2024 6:11amOctober 2024 6:65ad793.0 ug/dL 250.0-450.0 Vital Signs Vital Reading Result Reference Range Collection Date/Time Height 63 [in_i] April 12, 2025 7:34klZmgmlc22.89 kgSeptember 2024 7:25amBody Czhggziluqw63.4 [degF]97.6-99.0September 2024 7:25amHeart Smoe903 /min 60-100Sept2024 7:25amOxygen saturation by Pulse nyrnzlzj18 %95-100 April 12, 2025 7:25amBP Gvzjycrt560 mm[Hg]100-140Sept2024 7:25am BP Ffjdgktrc55 mm[Hg]60-100Sept2024 7:25amBMI (Body Mass Index)36.6 kg/n1Hchnpmzgy2024 7:06wvRgquuq36 [in_i]June 07, 2025 7:58amWeight 95.25 kgJune 07, 2025 7:58amHeart Gzxo198 /ujg54-514WjtgskazJune 07, 2025 7:58amRespiratory rate12 /rmw14-13KfrhdfnaJune 07, 2025 7:58amOxygen saturation by Pulse %95-100June 07, 2025 7:58amBP Bkofpxgb178 mm[Hg]100-140 June 07, 2025 7:58amBP Ynxwybwwd19 mm[Hg]60-100Nov2024 7:58amBMI (Body Mass Index)37.2 kg/s8TiwbzncjJune 07, 2025 7:58am Advance Directives Advance Directive Response Recorded Date/ Time Advance Directives No January 10 5:25pm Insurance Providers Guarantor Amaya Young Address [address] [address]Zskzgcf Info.Home Phone: Coverage Status Update:2025 Payer Group Member ID Coverage Type Subscriber Relationship to Subscriber Effective Date Expiration Date Lashaun MESSER [id number] Packard , M Id: [id number] [address] [facility] [address] Home Phone: Email: [email or web address] IndiaPrashanth MESSER Id: [id number] Packard , M Id: [id number] [address] [facility] [address] Home Phone: Email: [email or web address] Free Classifieds [facility] Insurance Co [id number] Sagastume Id: [id number] [address] [facility] [facility] [address] Home Phone: Email: [email or web address] Active 62% thru 11-25-21 [place] [address] Work Phone: [phone] [id number] Packard , M Id: [id number] [address] [facility] [address] Home Phone: Email: [email or web address] 2021 Encounters Encounter Location(s) Arrival/Admit Date Discharge/Departure Date Discharge/Departure Disposition Provider(s) Non-patient / Non-visit -[facility] ugust 2024 3:06pm ANDREAS Ovalleseparted Physician/Provider [facility]:24am[facility]24 8:58amDischarged to home care or self care (routine discharge)Indy Gilbert APRN CNPNon-patient / [facility]October 2024 7:11amIndy Gilbert APRN CNPDeparted Physician/Provider [facility]am[facility] 2024 8:29amDischarged to home care or self care (routine discharge)Indy Gilbert APRN CNP Recent Diagnosis Onset Date Admit Date Fatigue Unknown April 12, 025 8:24am Hair loss Unknown April 12 8:24am Obesity (BMI 35.0-39.9 without comorbidity) Unkn own April 12, 2025 8:24am Primary hypertension Unknown April 122024 8:24am Anxiety Unknown June 07 7:57am Depression Unknown June 07 7:57am Injury of left knee Unknown June 7:57am Left knee pain Unknown June 07 7:57am Assessments Diagnosis Onset Date Resolution Status Admit Date Fatigue acuteSept2024 8:24amHair lossacuteSept2024 8:24amObesity (BMI 35.0-39.9 without comorbidity)acuteSept2024 8:24amPrimary hypertensionacuteSept2024 8:24amAnxietyacuteNov2024 7:57am DepressionacuteNov2024 7:57amInjury of left kneeacuteJune 07, 2025 7:57amLeft knee painacuteNov2024 7:57am Plan of Treatment Author Indy Gilbert [facility]AuthoredSept[facility] 12:31pm Explained to pt that conditions such as anemia or vitamin deficiencies can cause fatigue. Strongly encouraged patient to get adequate sleep at night. May use Tylenol/ibuprofen as directed for any general discomfort or fevers. Pt verbalized understanding and agreement with tx plan. see above Patient has clearly made a good alexander effort for several months on her own to lose weight with little success. Pt to start Adipex daily. Medication is a stimulant. May cause you to be jittery or constipated. Take in the morning, may also take stool softener daily as needed. Continue to eat a healthy well balanced diet and continue work-out regimen. Pt aware that this is not a cure for obesity but a tool used to help them during their weight loss plateau. Pt aware that they need to continue to work hard at weight loss or the weight will be regained. Side effects discussed and understood. Pt education printed and discussed. Pt notified of prescribing schedule with 30 day dispensing. Id SOB, CP, mood changes, tachycardia, HTN, headaches, blurred vision occur, go to ER and Follow-up with me immediately. Initial weight 207 Needs to lose 10/35 pounds in 3 months To goal. Not currently on medication. Future Tests Future scheduled test information is unavailable Pending Tests Test Name Ordered Date Scheduled Date XR knee LT 4V* June 07, 2025 8:16am Future Visits Future appointment information is unavailable Future Procedures Procedure Name Ordered Date Scheduled Date Vitamin B12 April 12, 2025 7:43am FerritinSept2024 7:43amFolateSept2024 7:43amVitamin D 25 Hydroxy TotalSept2024 7:43am Future Medications Future medication information is unavailable Patient Instructions Patient instructions are unavailable
--- NOTE | 2025-06-13 16:48 | XR_ITS ---
[facility] [place] [address] Patient Name: SIVA WEEMS MRN: [id number] date: 1995 Sex: F Assigned Patient Location: [facility] Current Patient Location: Accession/Order Number: [id number] Exam Date: 06/13/2025 16:58 Report Date: 06/14/2025 08:47 At the request of: BRENDA JEAN BAPTISTE Procedure: XR knee LT 4V LEFT KNEE - 4 views CLINICAL DATA: Left knee pain for the past 2 months after doing squats. COMPARISON: None AP, lateral, internal oblique and patellar views were obtained. No acute fracture or dislocation is identified. No patellar subluxation is seen. The joint spaces are maintained. There is no significant hypertrophy. No knee effusion or soft tissue swelling is noted. XR/XR knee LT 4V IMPRESSION: NO ACUTE BONY FINDINGS. Impression dictated by: Rachel Elias M.D. 06/14/2025 8:47 AM Dictation Location: [place] [address] Electronically authenticated by: [id number] Y Date: 06/14/2025 08:47
--- OUTSIDE RECORDS SUMMARY | 2025-06-13 16:49 | XMS_ITS | Clinical Summary ---
Author Organization [employer]s tem Address [facility] [place] [address] [place] [address] Care Team Providers Care Bobbin Marker Name Role Phone Indy Gilbert Primary Care Provid er Allergies Active AllergyReactionsCriticalityNoted DateCommentsAmoxicillinItching,Rash, Shortness Of NhfxbwJnnv43/27/2024Fd And C Red No.40Anaphylaxis,Itching,Swelling High10/29/2023 Other Reaction(s): [...] InformationValueDate RecordedSex Assigned at BirthNot on fileLegal TogAkhwcx73/22/2023 7:23 AM EDTGender IdentityNot on fileSexual OrientationNot on file Last Filed Vital Signs Vital SignReadingTime TakenCommentsBlood Pyxcqjnr079/9410/13/2024 9:38 AM EDT Fubmc48829/12/2025 9:38 AM EDTTemperature--Respiratory Rate--Oxygen Saturation-- Inhaled Oxygen Concentration--Bpvtvc41.7 kg (215 lb 6.4 oz)10/13/2024 9:38 AM ZZJQgtbjo877 cm (5' 3 )10/13/2024 9:38 AM EDTBody Mass Index38.16010/13/2024 9:38 AM EDT Plan of Treatment Health MaintenanceDue DateLast DoneCommentsDepression Psyyaminc82/24/2006dult BMI Follow Up Plan12/26/2011Influenza Vancnsx1904/04/2025dult BMI Screening Tobacco Grtddpsej10Pap Smear11/04/2027 11/03/2024DTaP,Tdap and Td Vaccines (2 - Td or Tdap)/ Medical Devices Not on file Insurance Care Teams Team MemberRelationshipSpecialtyStart DateEnd Date Indy Gilbert APRN-NP [address] [facility] [place] [facility] [address] PCP - GeneralNurse Practitioner12/23/22
--- OUTSIDE RECORDS SUMMARY | 2025-06-13 16:49 | XMS_ITS | Clinical Summary ---
Author Organization [facility] Address [address] [place] [address] Care Team Providers Care Preparing Box Tender Name Role Phone Indy Gilbert EMANATIONS ANALYSIS TECHNICIAN Primary Care Provider Allergies Active AllergyReactionsCriticalityNoted DateCommentsAmoxicillinItching,Rash, Shortness of bupuryQyow94/27/8094RwhedpfuIvqanqquhxsZevs51/27/2024Red Dye 01/25/2021 Other Reaction(s): Swelling of Lip/Tongue/Throat Red Dye #40 (Allura Red)Itching,Wipjlidx23/27/2024 Other Reaction(s): hives Medications MedicationSigDispense QuantityRefillsLast FilledStart [...] ProblemNoted DateDiagnosed DateEncounter for initial prescription of tyedvtjftaiyqk85/11/0817Yxedijie88/11/2024Encounter for weight management 06/14/2024irth control hdtdmfagaa21/19/2024elvic pain in iuoshk3903/22/2024 Resolved Problems ProblemNoted DateDiagnosed DateResolved XwyaEzmtzeu80MI 36.0-36.9,adultandidal decjzyzlwi80 Bfezfusgestpezcnoer48/19/202507/19/2025 Overview (02/19/2025): Problem List clean-up per request of Phys. EHR Cmte Elevated LFTs Overview (02/19/2025): Problem List clean-up per request of Phys. EHR Cmte Family history of thyroid hmoiql41Fibrocystic disease of right fekfjn40Gallstone pancreatitis ([facility]) Overview (02/19/2025): Problem List clean-up per request of Phys. EHR Cmte Dkpwzqesxlwuht15 Overview (02/19/2025): Problem List clean-up per request of Phys. EHR Cmte High serum triiodothyronine (T3)6625Iyavgjvxnlckjtrnuz57/19/2025 02/19/2025 Overview (02/19/2025): Problem List clean-up per request of Phys. EHR Cmte Migraine qgkqizny50Migraine without aura and without status migrainosus, not lkuzcjkzosh31Motion iqbkdvue21/19/2025 02/19/2025Non morbid obesity due to excess ljroxypt35Poor qbebuls33Pregnancy, delivered ([facility]) Overview (02/19/2025): Problem List clean-up per request of Phys. [facility] ([facility]) Overview (02/19/2025): Problem List clean-up per request of Phys. [facility]HR [facility] Primary ixdpqrxgefyf39Right upper quadrant pain02/19/2025 02/19/2025Status post qsdizrrs58 Overview (02/19/2025): Problem List clean-up per request of Phys. [facility] Thyroid kpkhgi35UTI (urinary tract infection)02/19/2025 02/19/2025 Overview (02/19/2025): Problem List clean-up per request of Phys. [facility] Cmte Encounters DateTypeDepartmentCare HicgLljwxpypusp02/22/2025Telephone [facility] [address] [place] [id number] Candice Marvin MD Rrunrlb7603/21/2025 1:50 PM EDTOffice Visit [facility] [address] [place] [address] Candice Marvin MD Multinodular goiter (Primary Dx); Abnormal finding on thyroid function test; Encounter for dietary consultation; Class 2 obesity due to excess calories without serious comorbidity with body mass index (BMI) of 36.0 to 36.9 in adult5Bamboo flowsheet [facility] [address] [place] [address] Candice Marvin MD from Last 3 Months Immunizations ImmunizationAdministration DatesNext CotDmuo6103/24/2021 Family History Medical HistoryRelationNameCommentsAsthmaBrother 2Sam CoyerRashes / Skin problemsBrother 3Alex PerryAsthmaBrother 4Sam CoyerRashes / Skin problemsBrother 5Alex PerryHeart diseaseFatherHeart failureFather's Brother 1Jan JankowiakHeart failureFather's Brother 2Jan JankowiakHeart diseaseMaternal GrandmotherDiabetes MotherCassandra CoyerHeart diseaseMotherCassandra CoyerMigrainesMotherCassandra CoyerThyroid cancerMotherCassandra CoyerThyroid diseaseMotherCassandra Coyer CancerMother's Sister 1Cristen CoyerCancerMother's Sister 2Cristen CoyerAlcohol abusePaternal GrandfatherCOPDPaternal GrandmotherAgatha JankowiakHeart disease Paternal GrandmotherAgatha JankowiakHeart failurePaternal GrandmotherAgatha JankowiakRelationNameStatusCommentsBrother 9u3Qlywssz 2Sam CoyerAliveBrother 3 Mateusz PerryAliveBrother 4Sam CoyerAliveBrother [...] Last Filed Vital Signs Vital SignReadingTime TakenCommentsBlood Auzvjqmh460/8004 1:47 PM EDT Fyizk84925 1:42 PM EDTTemperature--Respiratory Iwzj5603 1:42 PM EDTOxygen Assrgtdcfy73%03/21/2025 1:42 PM EDTInhaled Oxygen Concentration-- Icfogu45.4 kg (206 lb)03/21/2025 1:42 PM QONFujxhn904 cm (5' 3 )03/21/2025 1:42 PM EDTBody Mass Index36.4908 1:42 PM EDT Plan of Treatment DateTypeDepartmentCare Team (Latest Contact Info)Thswstmzhvw02/08/2026 9:00 AM EDTOffice Visit NOMMariely JARQUIN [address] [place] [address] Mirela Preston PA [address] [place], [place] [id number] 03/20/2026 2:00 PM EDTOffice Visit [facility] [address] [place] [address] Candice Marvin MD [address] [place] [address] Procedures Procedure NamePriorityDate/TimeAssociated DiagnosisCommentsT4, FREERoutine 03/22/2025 8:25 AM EDT Multinodular goiter Abnormal finding on thyroid function test DQMRwywemr51/19/2025 8:20 AM EDT Multinodular goiter Abnormal finding on thyroid function test T3, RZRFYvdfswn86/19/2025 8:20 AM EDT Multinodular goiter Abnormal finding on thyroid function test from Last 3 Months Results * T4, free (03/22/2025 8:25 AM EDT)Specimen (Source)Anatomical Location / LateralityCollection Method / VolumeCollection TimeReceived TimeBloodVenous blood specimen / Unknown Narrative Authorizing ProviderResult TypeResult StatusHe[facility] Medical Centerbenton Astud[facility] ShavonneMethod[facility] BLOOD ORDERABLESFinal ResultPerforming OrganizationAddressCity/State/ZIP CodePhone Number [facility] * T3, free (03/22/2025 8:20 AM EDT)Specimen (Source)Anatomical Location / LateralityCollection Method / VolumeCollection TimeReceived TimeBloodVenous blood specimen / Unknown Narrative Authorizing ProviderResult TypeResult StatusAd[facility]Health [facility] BLOOD ORDERABLESFinal ResultPerforming OrganizationAddressCity/State/ZIP CodePhone Number [facility] * TSH (03/22/2025 8:20 AM EDT)Specimen (Source)Anatomical Location / Laterality Collection Method / VolumeCollection TimeReceived TimeBloodVenous blood specimen / Unknown Narrative Authorizing ProviderResult TypeResult [facility] BLOOD ORDERABLESFinal ResultPerforming OrganizationAddressCity/State/ZIP CodePhone Number [facility] from Last 3 Months Insurance Care Teams Team MemberRelationshipSpecialtyStart DateEnd Date Indy Gilbert NP [address] [place] [address] PCP - GeneralFamily Medicine10/27/23
--- OUTSIDE RECORDS SUMMARY | 2025-06-13 16:49 | XMS_ITS | Encounter Summary ---
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 Primary Care Provider Encounter Details DateTypeDepartmentCare Team (Latest Contact Info)Ybaogsbpwvb36/09/2024Clinisync Result Encounter [facility] External Department Unsolicited Jorge Staley DO [address] [place], [place] [id number] Social History Tobacco UseTypesPacks/DayYears UsedDateSmoking Tobacco: NeverSmokeless Tobacco: NeverAlcohol UseStandard Drinks/WeekCommentsYes0 (1 standard drink = 0.6 oz pure alcohol)caffeine: 1-2 cups per day coffee, sodaCommentsUnknownSex and Gender InformationValueDate RecordedSex Assigned at BirthNot on fileLegal Sex Jizhsp8410/16/2022 9:44 PM EDTGender IdentityNot on fileSexual OrientationNot on filedocumented as of this encounter Plan of Treatment DateTypeDepartmentCare Team (Latest Contact Info)Qfahcsjfmvl19/08/2026 9:00 AM EDTOffice Visit WILLIAM JARQUIN [address] [place] [place] [address] Mirela Preston PA [address] [place], [place] [id number] 03/20/2026 2:00 PM EDTOffice Visit [facility] [address] [place] [address] Candice Marvin MD [address] [place] [address] documented as of this encounter Procedures Procedure NamePriorityDate/TimeAssociated DiagnosisCommentsUS PELVIS BATIQFHLCUJQ30/09/2024 2:59 PM EDT TBH PREG QUANT FDXJmrmlcy96/09/2024 2:38 PM EDT SRMCOH PROTHROMBIN TIME INR W/O AHVJUvumkqd56/09/2024 2:38 PM EDT MLR HEMOGLOBIN L4PBctfakx77/09/2024 2:38 PM EDT [facility] SUTVMjednmd40/09/2024 2:38 PM EDT ALL THYROID STIM EUOTSWAXlppeko75/09/2024 2:38 PM EDT documented in this encounter Results * US PELVIS TRANSVAGINAL (11/11/2023 2:59 PM EDT)Anatomical RegionLaterality ModalityOtherSpecimen (Source)Anatomical Location / LateralityCollection Method / VolumeCollection TimeReceived Time11/11/2023 2:59 PM EDT Narrative 11/11/2023 3:01 PM EDT [facility] ?[address] ? [place] [address] ? Ultrasound Report ? Signed ? Patient: MARGOTH WEEMS ?MR#: [id number] ?? : 1995 ?Acct:[id number] ?? Age/Sex: 27 / F ?ADM Date: 11/11/23 ?? Loc: US ? Attending Dr: Jorge Staley D.O. ? Ordering Physician: Jorge Staley D.O. ?? Date of Service: 11/11/23 ?? Procedure(s): US pelvis transvaginal ?? Accession Number(s): [id number] ? cc: Jorge Staley D.O.; Physician,Non-Staff M.D. ? [facility] ? [address] ? [place] [address] ? Patient Name: ?? MARGOTH WEEMS ? MRN: [facility]:[id number] ? date: 1995 ?Sex: F ?? Assigned Patient Location: US ?? Current Patient Location: US ?? Accession/Order Number: [id number] ?? Exam Date: 11/11/2023 ??14:06 ?Report Date: 11/11/2023 ??14:59 ? At the request of: ?? JORGE ??REBEKA ? Procedure: ??US pelvis transvaginal ? EXAMINATION: US pelvis transvaginal ? HISTORY: menorrhagia with regular cycle N92.0 ? COMPARISON: No relevant comparison available. ? FINDINGS: ? The uterus is normal in size, contour and echotexture measuring 8.2 x 5.3 x ?? 4.2 ?? cm. No focal myometrial mass. ? The endometrium measures 9.1 mm, normal. ? The right ovary measures 4.5 x 3.0 x 3.2 cm. Normal color Doppler flow in the ?? ovary. Areas of anechoic echogenicity the largest measuring 2.7 x 2.3 x 2.7 ?? cm, ?? simple cyst. ? The left ovary measures 3.3 x 2.7 x 2.3 cm. Normal subcentimeter follicles. ?? Normal color Doppler flow in the ovary ? No free fluid ? US/US pelvis transvaginal ?? IMPRESSION: ? 2.7 cm right ovarian simple cyst ? Electronically authenticated by: GLENNA ??BIJU ?? Date: 11/11/2023 ??14:59 ? Dictated By: ?Glenna Ivy M.D. ? Signed By: ?11/11/23 1501 ? DD/ 1459 ? TD/TT: ? [place] Supervisor: Procedure Note Radiology, Radiologist, MD - 11/11/[address] [address] Ultrasound Report Signed Patient: MARGOTH WEEMS MMR#: [id number] : 1995Acct:[id number] Age/Sex: 27 / FADM Date: 11/11/23 Loc: US Attending Dr: Jorge Rebeka D.O. Ordering Physician: Jorge Staley D.O. Date of Service: 11/11/23 Procedure(s): US pelvis transvaginal Accession Number(s): [id number] cc: Jorge Staley D.O.; Physician,Non-Staff [place] [address] [address] Patient Name: MARGOTH WEEMS MRN: [facility]:[id number] date: 1995 Sex: F Assigned Patient Location: US Current Patient Location: US Accession/Order Number: [id number] Exam Date: 11/11/2023 14:06 Report Date: 11/11/2023 [...] Dictated By: Glenna Ivy M.D. Signed By:11/11/23 1503 DD/ 8697 TD/TT: [place] Supervisor: Authorizing ProviderResult TypeResult StatusCorey Rebeka DOCLINISYNC IMAGINGFinal Result * [facility] PREG QUANT HCG (11/11/2023 2:38 PM EDT)ComponentValueRef RangeTest Method Analysis TimePerformed AtPathologist SignatureHCG QUANTITATIVE<1mIU/mLTBH Comment: 5-50 ? 0.2-1 WEEK 50-500 ? 1-2 WEEKS 100-5,000 ?2-3 WEEKS 500-10,000 ? 3-4 WEEKS 1,000-50,000 ?? 4-5 WEEKS 10,000-100,000 5-6 WEEKS 15,000-200,000 6-8 WEEKS 10,000-100,000 2-3 MONTHS Specimen (Source)Anatomical Location / LateralityCollection Method / Volume Collection TimeReceived Time11/11/2023 2:38 PM EDT11/11/2023 2:49 PM EDT Narrative CLINISYNC - 11/11/2023 4:19 PM EDT Authorizing ProviderResult TypeResult StatusCorey Rebeka DOCLINISYNCFinal Result Performing OrganizationAddressCity/State/ZIP CodePhone Number [facility] * ALL THYROID STIM HORMONE (11/11/2023 2:38 PM EDT)ComponentValueRef RangeTest MethodAnalysis TimePerformed AtPathologist SignatureTHYROID STIMULATING HORMONE1.3610.358 - 3.740 uIU/mLTBHSpecimen (Source)Anatomical Location / LateralityCollection Method / VolumeCollection TimeReceived Time11/11/2023 2:38 PM EDT11/11/2023 2:49 PM EDT Narrative CLINISYNC - 11/11/2023 4:19 PM EDT Authorizing ProviderResult TypeResult StatusCorey Rebeka DOCLINISYNCFinal Result Performing OrganizationAddressCity/State/ZIP CodePhone Number [facility] * CCF APTT (11/11/2023 2:38 PM EDT)ComponentValueRef RangeTest MethodAnalysis TimePerformed AtPathologist SignaturePARTIAL THROMBOPLASTIN TIME30.522.3 - 36.2 secTBHSpecimen (Source)Anatomical Location / LateralityCollection Method / VolumeCollection TimeReceived Time11/11/2023 2:38 PM EDT11/11/2023 2:49 PM EDT Narrative CLINISYNC - 11/11/2023 3:18 PM EDT Authorizing ProviderResult TypeResult StatusCorey Rebeka DOCLINISYNCFinal Result Performing OrganizationAddressCity/State/ZIP CodePhone Number [facility] * SRMCOH PROTHROMBIN TIME INR W/O COUM (11/11/2023 2:38 PM EDT)ComponentValueRef RangeTest MethodAnalysis TimePerformed AtPathologist SignaturePROTHROMBIN TIME 10.09.0 - 11.6 secTBHTBH INR0.94TBHComment: DESIRED INR: 2.0-3.0 CONDITIONS NOT LISTED BELOW 2.5-3.5 FOR PROSTHETIC HEART VALVE REPLACEMENT 2.5-3.5 RECURRENT THROMBOSIS Specimen (Source)Anatomical Location / LateralityCollection Method / Volume Collection TimeReceived Time11/11/2023 2:38 PM EDT11/11/2023 2:49 PM EDT Narrative CLINISYNC - 11/11/2023 3:18 PM EDT Authorizing ProviderResult TypeResult StatusCorey Rebeka DOCLINISYNCFinal Result Performing OrganizationAddressCity/State/ZIP CodePhone Number [facility] * MLR HEMOGLOBIN A1C (11/11/2023 2:38 PM EDT)ComponentValueRef RangeTest Method Analysis TimePerformed AtPathologist SignatureGLYCOHEMOGLOBIN A1C5.24.5 - 6.2 %TBHComment: ADA RECOMMENDED LIMIT 4.0 - 6.0 ADA THERAPEUTIC TARGET < 7.0 ACTION SUGGESTED > 7.0 ESTIMATED AVERAGE RLUQTKY710yy/dLTBHSpecimen (Source)Anatomical Location / LateralityCollection Method / VolumeCollection TimeReceived Time11/11/2023 2:38 PM EDT11/11/2023 2:49 PM EDT Narrative CLINISYNC - 11/11/2023 3:14 PM EDT Authorizing ProviderResult TypeResult StatusCorey Rebeka DOCLINISYNCFinal Result Performing OrganizationAddressCity/State/ZIP CodePhone Number [facility] documented in this encounter Visit Diagnoses Not on filedocumented in this encounter Care Teams Team MemberRelationshipSpecialtyStart DateEnd Date Indy Gilbert NP [address] [facility] [facility] [address] PCP - GeneralFamily Medicine10/27/23documented as of this encounter
--- OUTSIDE RECORDS SUMMARY | 2025-06-13 17:00 | XMS_ITS | CCD ---
Author Organization [facility] Care Team Providers Care Shield Operator Name Role Phone Rowdy Dennison Unavailable Unavailable Rowdy Dennison Unavailable Unavailable KRISH GO Admitting Unavailable KRISH GO Attending Unavailable RENETTA SHOOK Consulting Unavailable GLENNA ALONZO V Consulting Unavailable KRISH GO Consulting Unavailable INDY GILBERT Admitting Unavailab le INDY GILBERT Attending Unavailab le INDY GILBERT Consulting Unavailab le Indy Gilbert Unavailable Jeramy Fuchs Unavailable Ailyn Harry Unavailable Lili Downing Unavailable Yessenia Gross Unavailable Ofelia INDEPENDENT DRIVERIndy Primary Care Provider Ofelia DUEÑAS-INDEPENDENT DRIVERIndy Primary Care [facility] er MAGNO STALEY Referring Unavailable NESSARBACHER, INDY Primary Care Unavailable MAGNO STALEY Referring Unavailable NESSARBACHER, INDY Primary Care Unavailable MAGNO STALEY Referring Unavailable ROHRBACHER, INDY Primary Care Unavailable Laila Nichole Referring Unavailable NESSARBACHERINDY Primary Care Unavailable LINDSEY PEARL Attending Unavailable NESSARBACHEINDY Malhotra Referring Unavailable NESSARBACHER, INDY Primary Care Unavailable [employer] ACCOUNTANT-INDEPENDENT DRIVERIndy Primary Care [facility] er INDY GILBERT Referring Unavailable NESSARBACHER, INDY Primary Care Unavailable [employer] ACCOUNTANTIndy Primary Care Provider NessarbacheIndy malhotra APRN Attending Provider Magno Staley DO Attending Provider [phone] Indy Gilbert APRN Primary Care Provider Indy Gilbert APRN Attending Provider Jose Harden DO Attending Provider REBEKA, MAGNO Attending Unavailable REBEKA, MAGNO Attending Unavailable TIERNEY BASS Attending Unavailable THOR, JOSE Schuster Attending Unavailable THOR, JOSE Schuster Attending Unavailable CANDICE MARVIN Attending Unavailable INDY GILBERT Referring Unavailab le REBEKA, MAGNO Attending Unavailable REBEKA, MAGNO Attending Unavailable REBEKA, MAGNO Attending Unavailable REBEKA, MAGNO Attending Unavailable EVELYN, MIRELA Attending Unavailable Thor, Jose Attending Unavailable Thor, Jose Admitting Unavailable Candice Marvin MD Attending Provider [phone] Candice Marvin MD Attending Provider Indy Gilbert APRN Primary Care Provider Indy Gilbert APRN Attending Provider [phone] Allergies Allergy ClassificationReported Allergen(s)Allergy TypeDate of OnsetReaction(s) Facility (20 sources)Contrast media; Translations: [red dye]Propensity to adverse iggnungdg51-52-0157kfz swelling, Swelling of Lip/Tongue/Throat, lip swelling [facility] (20 sources)Amoxicillin; Translations: [AMOXICILLIN]Drug Oumwsnu64-41-8065 Itching, Rash, Shortness of breathFayette County Memorial Hospital (20 sources)Cinnamon PreparationDrug Apupcjb35-50-4440ClweafmkjmvHAXY [facility] (20 sources)Red Dye #40 (Allura Red)Allergy to nvydyizck12-07-7474Bqjgloc, SwellingK[facility] (4 sources)Fd And C Red No.40; Translations: [FD AND C RED NO.40]Propensity to adverse reactions to cstb89-40-1012Gkqnvyerodu, Itching, SwellingC[facility] (1 source)AmoxicillinDrug Gmqxyas15-39-1362TxefyfejjFayette County Memorial Hospital Repository Medications Current Medications MedicationDrug Class(es)DatesSig (Normalized)Sig (Original)amoxicillin 500 mg oral capsule (15 sources)Penicillin-class AntibacterialStart: 30-96-4970nrji 1 capsule by mouth every eight hoursAmoxicillin 500 MG 1 capsule Orally tid for 10 day(s) Nov, ActiveStart: 07-09-2021 End: 44-90-1934oddv 1 capsule by mouth twice dailyAmoxicillin 500 mg capsule Discontinued 500 MG PO Twice daily July 12, 2021 12:00am August 27, 2021 8:45am Started 07/08/21 for 10 day courseStart: 32-93-7249ekwm 2 capsules by mouth every twenty-four hoursStart: 27-13-1359xlme 2 capsules by mouth every twenty-four hoursAmoxicillin 500 MG 2 capsules Orally once a day for 10 days Jul, Activeascorbic acid 1000 mg oral tablet (20 sources)Vitamin CAscorbic Acid (vitamin C) 1000 MG tablet Activecalcium ascorbate 500 mg oral tablet (5 sources)Start: 32-80-7115xwvh 1 tablet by mouth once dailyAscorbate Calcium (Vitamin C) 500 mg tablet Active 500 MG PO Daily December 06, 2024 11:00pm Complies with drug therapycholecalciferol 0.025 mg oral capsule (20 sources)Vitamin DStart: 58-42-6432tjyd 1 capsule by mouth once daily Cholecalciferol (Vitamin D3) 25 mcg (1,000 unit) capsule Active 25 MCG PO Daily December 06, 2024 11:00pm Complies with drug therapyCholecalciferol (Vitamin D) 125 MCG (5000 UT) capsule Activetake 1 capsule by mouth in the morning cholecalciferol, vitamin D3, (VITAMIN D3) 5,000 units capsule Take 1 capsule (5,000 Units total) bymouth in the morning. Activedesogestrel 0.15 mg / ethinyl estradiol 0.03 mg oral tablet (11 sources)Progestin, EstrogenStart: 06-14-2024 End: 04-60-1924hbpv 1 tablet by mouth once daily, then take 1 tablet by mouth once dailydesogestrel-ethinyl estradiol (Apri) 0.15-30 MG-MCG tablet Indications: Encounter for initial prescription of contraceptives, unspecified contraceptive Take 1 tablet by mouth Daily for 28 days Take 1tablet by mouth daily 28 tablet 11 06/14/2024 Activeescitalopram 5 mg oral tablet (2 sources)Serotonin Reuptake InhibitorStart: 36-19-9789qhpb 1 tablet by mouth once dailyEscitalopram Oxalate (Lexapro) 5 mg tablet Active 5 MG PO Daily June 07, 2025 12:00am Depression Depression, unspecified Complies with drug therapyStart: 35-74-3405rhgp 1 tablet by mouth every twenty-four hours Escitalopram Oxalate 5 MG 1 tablet Orally Once a day for 30 day(s) Oct, Nmtytn28 day ethinyl estradiol 0.924649 mg/hr / etonogestrel 0.005 mg/hr vaginal system (20 sources)Progestin, EstrogenStart: 61-42-9144Trdmdmckxapk-Ethinyl Estradiol (Nuvaring) 0.12-0.015 mg/24 hr ring Active 1 VAG RING VAGINAL EVERY 4 WEEKS December 06, 2024 11:00pm leave in place for 3 weeks of a 4-week cycle Complies with drug therapyStart: 11-03-2024 End: 60-26-8759ezlffuxxfvlb-ethinyl estradiol (Nuvaring) 0.12-0.015 MG/24HR vaginal ring Indications: control counseling Insert 1 Ring into the vagina every 28 (twenty-eight) days Insert vaginal ring for 3 weeks, then remove for 1 week. 1 each 11/03/2024 11/03/2025 Active{21 (ethinyl estradiol 0.035 MG / norgestimate 0.25 MG Oral Tablet) / 7 (inert ingredients 1 MG Oral Tablet) } Pack (2 sources)Progestin, EstrogenStart: 65-43-5553vzio 1 tablet by mouth every twenty-four hoursNorgestimate-Eth Estradiol 0.25-35 MG-MCG 1 tablet Orally Once a day for 28 days Jan, Activetake 1 tablet by mouth once daily as needed Norgestimate-Eth Estradiol 0.25-35 MG-MCG take 1 tablet by mouth once daily for 28 Not-Taking/PRNEtonogestrel-Ethinyl Estradiol (Nuvaring) 0.12-0.015 mg/24 hr ring (1 source)Start: 11-15-4009Mqjxhdmzfswa-Ethinyl Estradiol (Nuvaring) 0.12-0.015 mg/24 hr ring Active 1 VAG RING VAGINAL EVERY 4 WEEKS December 07, 2024 12:00am leave in place for 3 weeks of a 4-week cycleferrous sulfate 134 mg oral tablet (20 sources)Start: 10-54-9934fuob 1 tablet by mouth once dailyFerrous Sulfate 134 mg (27 mg iron) tablet Active 134 MG PO Daily December 06, 2024 11:00pm Complies with drug therapyferrous sulfate 325 (65 Fe) MG EC tablet Take 325 mg by mouth in the morning and 325 mg at noon mzx496 mg in the evening. Take with meals. Do not crush, chew, or split. Activefluticasone propionate 0.05 mg/actuat metered dose nasal spray (7 sources)CorticosteroidStart: 49-83-7859Aacdxymqeif Propionate 50 mcg/actuation spray,suspension Active 1 SPRAY INTRANASAL Daily October 12:00am Complies with drug therapyStart: 16-85-6662kuuv 1 spray(s) nasal route once dailyFluticasone Propionate 50 MCG/ACT 1 spray in each nostril Nasally Once a day for 30 days Aug, Activehydrocortisone 10 mg/ml / neomycin 3.5 mg/ml / polymyxin b 89695 unt/ml otic suspension (1 source)Aminoglycoside Antibacterial, Polymyxin-class Antibacterial, CorticosteroidStart: 03-04-7616Fzqnitin-Polymyxin-HC 3.5-18372-9 3 drops right ear Three times a day for 7 days Nov, ActivehydrOXYzine hydrochloride 25 mg oral tablet (1 source)AntihistamineStart: 54-52-8671lxis 1 tablet by mouth twice daily as needed for anxietyHydroxyzine Hcl 25 mg tablet Active 25 MG PO Twice daily as needed for anxiety 30 60 0 June 07, 2025 12:00am Anxiety Anxiety disorder, unspecified Complies with drug therapyMagnesium (20 sources)Magnesium 100 MG capsule Activemagnesium citrate 100 mg oral tablet (5 sources)Start: 05-26-5543zyds 1 capsule by mouth once dailyMagnesium Citrate 100 mg capsule Active 100 MG PO Daily December 06, 2024 11:00pm Complies with drug therapymagnesium glycinate 100 mg magnesium capsule (2 sources)take 1 capsule by mouth in the morningmagnesium glycinate 100 mg magnesium capsule Take 100 mg by mouth in the morning. Activeomega-3 acid ethyl esters (correction) 1000 mg oral capsule (20 sources)take 1 capsule by mouth in the morningomega-3 acid ethyl esters (Lovaza) 1 g capsule Take 1 g by mouth in the morning and 1 g before bedtime. ActiveOmega-3 Fatty Acids 500 mg capsule (5 sources)Start: 56-23-2009tfsp 1 capsule by mouth once dailyOmega-3 Fatty Acids 500 mg capsule Active 500 MG PO Daily December 06, 2024 11:00pm Complies with drug therapyStart: 15-81-0431kour 1 capsule by mouth once dailyStart: 12-07-2024 take 1 capsule by mouth once dailyOmega-3 Fatty Acids 500 mg capsule Active 500 MG PO Daily December 07, 2024 12:00am Complies with drug therapyStart: 12-07-2024 take 1 capsule by mouth once dailyOmega-3 Fatty Acids 500 mg capsule Active 500 MG PO Daily December 07, 2024 12:00amondansetron 4 mg disintegrating oral tablet (8 sources)Serotonin-3 Receptor AntagonistStart: 70-97-4709Zjlyo: 01-10-2021 End: 28-13-1437fjwc 1 tablet by mouth every six hours as needed for nausea Ondansetron Hcl (Zofran) 4 mg Tablet Discontinued 4 MG PO Q6H as needed for nausea January 09, 2021 11:00pm March 25, 2021 11:14amSLYND 4 mg (28) tablet (2 sources)Start: 09-09-2024 End: 87-91-8226liff 1 tablet by mouth in the morningSLYND 4 mg (28) tablet Take 1 tablet by mouth in the morning. 09/09/2024 12/02/2024 ActiveTylenol Extra Strength 500 MG (2 sources)zinc gluconate 30 mg oral tablet (3 sources)take 1 tablet by mouth once dailyzinc 30 MG tablet Take 30 mg by mouth Daily Active Completed/Discontinued Medications MedicationDrug Class(es)DatesSig (Normalized)Sig (Original)acetaminophen 500 mg oral tablet (6 sources)Start: 03-24-2021 End: 46-56-7246reiz 2 tablets by mouth every six hoursAcetaminophen 500 mg Tablet Discontinued 1000 MG PO Q6H 02 09March 23, 2021 11:00pm July 09, 2021 4:32pmStart: 03-24-2021 End: 44-96-5206htvm 1000 mg by mouth every six hoursAcetaminophen Discontinued 1000 MG PO Q6H March 24, 2021 12:00am July 09, 2021 5:32pmbusPIRone hydrochloride 10 mg oral tablet (20 sources)Start: 10-06-2023 End: 18-95-2618tdwi 1 tablet by mouth twice dailyBuspirone 10 mg tablet Discontinued 10 MG PO Twice daily 180 90 October 06, 2023 2:08pm January 9:06amStart: 47-98-5384pzwb 1 tablet by mouth every twelve hoursbusPIRone HCl 5 MG 1 tablet Orally Twice a day for 30 days December, Activecephalexin 500 mg oral capsule (3 sources)Cephalosporin AntibacterialStart: 09-03-2024 End: 32-05-8938kxpr 1 capsule by mouth in the morning, [...] Discontinued docusate sodium 100 mg oral capsule (6 sources)Start: 03-24-2021 End: 72-61-2766lhmy 1 capsule by mouth once daily at bedtimeDocusate Sodium (Colace) 100 mg capsule Discontinued 100 MG PO Daily at bedtime 02 09March 23, 2021 11:00pm July 09, 2021 4:32pmdrospirenone 4 mg oral tablet (7 sources)ProgestinStart: 09-09-2024 End: 30-61-7634utrw 1 tablet by mouth once dailyDrospirenone (Slynd) 4 MG tablet Indications: control counseling Take 1 tablet by mouth Daily84 tablet 3 09/09/2024 12/20/2024 Discontinued (Therapy completed)ibuprofen 600 mg oral tablet (8 sources)Nonsteroidal Anti-inflammatory DrugStart: 03-24-2021 End: 20-32-0497lohj 1 tablet by mouth every six hoursIbuprofen 600 mg Tablet Discontinued 600 MG PO Q6H 60 1 March 23, 2021 11:00pm July 09, 2021 4:32pmlabetalol hydrochloride 200 mg oral tablet (20 sources)beta-Adrenergic BlockerStart: 07-09-2021 End: 01-80-0526Vwduwsipn 200 mg tablet Discontinued 100 MG PO Daily July 09, 2021 4:45pm October 06, 2023 1:40pmStart: 07-09-2021 End: 02-79-1245dbpf 100 mg by mouth once dailyLabetalol Discontinued 100 MG PO Daily July 09, 2021 5:45pm October 06, 2023 2:40pmStart: 03-25-2021 End: 44-13-9884fitn 1 tablet by mouth twice dailyLabetalol 200 mg tablet Discontinued 200 MG PO Twice daily 60 1 March 24, 2021 11:00pm July 09, 2021 4:32pmStart: 03-01-2021 End: 63-57-6872Lpgrgzsps 200 mg Tablet Discontinued 300 MG PO Three times daily February 28, 2021 11:00pm March 25, 2021 11:14amStart: 03-01-2021 End: 58-73-3129swof 300 mg by mouth three times dailyLabetalol Discontinued 300 MG PO Three times daily March 01, 2021 12:00am March 25, 2021 12:14pmtake 1 tablet by mouth every twenty-four hoursLabetalol HCl 100 MG 1 tablet Orally Once Daily for 90 day(s) Activelevonorgestrel 0.235147 mg/hr intrauterine system (10 sources)Progestin, Progestin-containing Intrauterine DeviceStart: 04-01-2024 End: 53-18-1398Gbstkciyqhzlee intrauterine device 52 mgmeclizine hydrochloride 25 mg oral tablet (5 sources)AntiemeticStart: 06-21-2024 End: 56-50-3836qoqf 1 tablet by mouth twice daily as neededMeclizine 25 mg tablet Discontinued 25 MG PO Twice daily as needed for motion sickness 60 0 June 21, 2024 12:00am December 07, 2024 7:15am Motion sickness Motion sickness, initial encountermetFORMIN hydrochloride 500 mg oral tablet (20 sources)BiguanideStart: 06-14-2024 End: 39-74-0331ocfq 1 tablet by mouth once dailyMetformin 500 mg tablet Discontinued 500 MG PO Daily December 06, 2024 11:00pm April 12, 2025 9:22am nystatin 304487 unt/ml topical cream (6 sources)Polyene AntifungalStart: 05-28-2024 End: 21-21-1746Dvpxgwkf 100,000 unit/gram cream Discontinued 1 APPLIC TOPICAL Twice daily 30 2 May 27, 2024 11:00pm June 07, 2025 7:59am Intertriginous candidiasis Candidiasis of skin and nailphentermine hydrochloride 37.5 mg oral tablet (20 sources)Sympathomimetic Amine AnorecticStart: 07-15-2024 End: 86-52-6955ewqs 1 tablet by mouth once daily 30 minutes after breakfast Phentermine (Adipex-P) 37.5 mg tablet Discontinued 37.5 MG PO Daily December 06, 2024 11:00pm January 25, 2025 12:30pm must administer 30 minutes before or 1-2 hours after breakfastPrenatal Vit 92-Gemy-Vmqwp-Dha ( + Dha) 28 mg iron- 975 mcg-200 mg Combo Pack (6 sources)Start: 01-10-2021 End: 55-71-6232Kxyjllet Vit 49-Khby-Azrsb-Dha ( + Dha) 28 mg iron- 975 mcg-200 mg Combo Pack Discontinued 1 PO January 09, 2021 11:00pm July 09, 2021 4:32pmStart: 01-10-2021 End: 29-26-2005Upkdbbeh Vit 05-Leoj-Jgnan-Dha ( + Dha) 28 mg iron- 975 mcg-200 mg Combo Pack Discontinued 1 PO January 10, 2021 12:00am July 09, 2021 5:32pmtraMADol hydrochloride 50 mg oral tablet (6 sources)Opioid AgonistStart: 08-27-2021 End: 52-43-9975ekxw 0.5-1 tablets by mouth every six hours as needed for pain Tramadol (Ultram) 50 mg tablet Discontinued 50 MG PO Q6H as needed for pain 30 7 0 August 27, 2021 12:00am October 06, 2023 1:41pm Cholelithiasis Calculus of gallbladder without cholecystitis without obstruction /2 - 1 tab po q 6 hours prn painTurmeric extract (6 sources) End: 58-00-7837Orafgjse (QC Tumeric Complex) 500 MG capsule 06/14/2024 DiscontinuedTurmeric (QC Tumeric Complex) 500 MG capsule Active Problems Active Problems Problem ClassificationProblemDateDocumented DateEpisodic/ChronicAnxiety disorders (20 sources)Anxiety; Translations: [Anxiety disorder, unspecified]Onset: 02-19-2025 Resolved: 64-04-0371OktjxmyXoczkct tract disease (20 sources)Cholecystitis, unspecified; Translations: [Cholelithiasis without obstruction]Onset: 07-26-2021 Resolved: 50-74-7547WrospgauWyrqfbe on above:Problem List clean-up per request of Phys. EHR CmteCancer; other and unspecified primary (1 source)History of benign phyllodes neoplasm of breast; Translations: [Personal history of other benign neoplasm]26-30-0680MadvbvumUdhdpwoxk hypertension (20 sources)Essential hypertension; Translations: [Essential (primary) hypertension]Onset: 06-05-2021 Resolved: 63-01-8082McypexwBektexpo; including migraine (20 sources)Migraine; Translations: [Other migraine, not intractable, without status migrainosus]Onset: 02-19-2025 Resolved: 10-34-5628GvgnphpSpswdybmhhro complicating ; childbirth and the puerperium (17 sources)-induced hypertension; Translations: [Gestational [-induced] hypertension withoutsignificant proteinuria, unspecified trimester]Onset: 02-19-2025 Resolved: 616008-69-7697FzhzwsweGppxhge on above:Problem List clean-up per request of Phys. EHR CmteImmunizations and screening for infectious disease (11 sources)Contact with and (suspected) exposure to other viral communicable diseases; Translations: [Contact with and (suspected) exposure to other viral communicable diseases]Onset: 08-08-2021 Resolved: 16-21-6273RweayovjTujpjpz and fatigue (4 sources)Fatigue; Translations: [Other fatigue]06-82-0045DmfbutluGszw disorders (10 sources)Moderate major depression, single episode; Translations: [Major depressive disorder, single episode, moderate]21-14-6053GovoicnXjotcdy (18 sources)Candidal intertrigo; Translations: [Candidiasis of skin and nail] Onset: 02-19-2025 Resolved: 350364-15-2654MnmznocaZyffamjaq of unspecified nature or uncertain behavior (3 sources)Phyllodes tumor of breast; 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 unspecified breast]Onset: 683660-73-4040GrivjfdyEiouu and unspecified benign neoplasm (1 source)Fibroadenoma of left breast; Translations: [Benign neoplasm of left breast]62-81-0265MxqscxbwAltvh circulatory disease (4 sources)Elevated blood-pressure reading, without diagnosis of hypertension; Translations: [ELEVATED BP READING W/O DX HTN]Onset: 95-55-8012QrpskgcgSugvi injuries and conditions due to external causes (16 sources)Motion sickness; Translations: [Motion sickness, initial encounter] Onset: 02-19-2025 Resolved: 270220-93-4915IkbknvlqCuagh injuries and conditions due to external causes (2 sources)Injury of left knee; Translations: [Unspecified injury of left lower leg, initial encounter]01-47-5293WqkhlyjdIoect non-traumatic joint disorders (2 sources)Pain in left knee; Translations: [Left knee pain]88-18-7622Anoxtowo Other nutritional; endocrine; and metabolic disorders (20 sources)Body mass index 30+ - obesity; Translations: [Body mass index (BMI) 39.0-39.9, adult]Onset: 02-19-2025 Resolved: 752763-68-7120BghqtcvHpfpn nutritional; endocrine; and metabolic disorders (17 sources)Hyperbilirubinemia; Translations: [Other disorders of bilirubin metabolism]Onset: 02-19-2025 Resolved: 127542-93-3959HhumyvwWqcbsob on above:Problem List clean-up per request of Phys. EHR CmteOther nutritional; endocrine; and metabolic disorders (1 source)Weight increased; Translations: [Abnormal weight gain]08-12-2024 EpisodicOther and delivery including normal (17 sources)Mother delivered; Translations: [Encounter for full-term uncomplicated delivery]Onset: 02-19-2025 Resolved: 933768-77-7605AtsaccxaSwuanrv on above:Problem List clean-up per request of Phys. EHR CmteOther screening for suspected conditions (not mental disorders or infectious disease) (20 sources)Encounter for screening for lipoid disorders; Translations: [Encounter for screening for other metabolic disorders]Onset: 05-23-2020 Resolved: 008541-71-1380VfqchxjfTiohgmh on above:Problem List clean-up per request of Phys. EHR CmteOther skin disorders (1 source)Localized swelling, mass and lump, right upper limb; Translations: [Localized swelling, mass and lump, right upper limb]Onset: 89-26-9172Alrkykoi Other skin disorders (4 sources)Loss of hair; Translations: [Nonscarring hair loss, unspecified] 89-03-8612PdphmnxvLjsnh upper respiratory infections (15 sources)Acute upper respiratory infection, unspecified; Translations: [Sore throat symptom]Onset: 95-45-4540UnwuwdrbOpbtpp media and related conditions (3 sources)Acute suppurative otitis media without spontaneous rupture of ear drum, right ear; Translations: [Otitis media, unspecified, right ear]Onset: 08-03-2019 Resolved: 37-99-8521BqadkekjRvbtsprrfq disorders (not diabetes) (17 sources)Gallstone pancreatitis; Translations: [Biliary acute pancreatitis without necrosis or infection]Onset: 02-19-2025 Resolved: 326428-75-7128QtgzfqzdEhgukhe on above:Problem List clean-up per request of Phys. EHR CmteResidual codes; unclassified (1 source)Localized edemaEpisodicResidual codes; unclassified (20 sources)Patient encounter status; Translations: [Procedure and treatment not carried out due to patient leaving prior to being seen by health care provider] Onset: 037476-95-6759AtearelqMcyrnty on above:Problem List clean-up per request of Phys. EHR CmteResidual codes; unclassified (1 source)Family history of malignant neoplasm of ovary in first degree relative; Translations: [Family history of malignant neoplasm of ovary] 61-91-0976WyyjhzrbOmhrymqe codes; unclassified (16 sources)Family history of disorder; Translations: [Family history of other endocrine, nutritional and metabolic diseases]Onset: 02-19-2025 Resolved: 954967-97-2212DrnrkmtdYhooskty codes; unclassified (2 sources)FH: Thyroid disorder; Translations: [Family history of other endocrine, nutritional and metabolic diseases]Onset: 02-19-2025 Resolved: 330420-61-9362HydcnluzDsbtbrp disorders (2 sources)Thyroid dysfunction; Translations: [Disorder of thyroid, unspecified] 28-27-6986CnkqmnxmDqzjeecyngcm (2 sources)R79.89 - Other specified abnormal findings of blood chemistry Unclassified (1 source)E04.1 - Nontoxic single thyroid noduleUrinary tract infections (17 sources)Urinary tract infectious disease; Translations: [Urinary tract infection, site not specified]Onset: 02-19-2025 Resolved: 720702-97-9497BslcmxjqOmxkyeb on above:Problem List clean-up per request of Phys. EHR Cmte Past or Other Problems Problem ClassificationProblemDateDocumented DateEpisodic/ChronicAbdominal pain (20 sources)Lower abdominal pain, unspecified; Translations: [Pain in female pelvis]Onset: 07-26-2021 Resolved: 91-06-9845RetoxtyeYcsospzmohjgx and procreative management (20 sources)Encounter for initial prescription of contraceptive pills; Translations: [Patient encounter status]Onset: 10-52-2758OrmcdzlqPvwwab and vomiting (1 source)Nausea with vomiting, unspecifiedOnset: 07-26-2021 Resolved: 85-45-4005BuddelhfMmbjeenqchxk breast conditions (11 sources)Fibrocystic change of right breast; Translations: [Diffuse cystic mastopathy of right breast]Onset: 02-19-2025 Resolved: 390636-26-9596QspxymwPshmyyrixeiq breast conditions (20 sources)Inflammatory disorder of breast; Translations: [Mastitis without abscess]Onset: 879130-92-4127JaepntumDoqsw connective tissue disease (11 sources)Poor posture; Translations: [Abnormal posture]Onset: 02-19-2025 Resolved: 587109-21-1584CqqkhyjuVljrg ear and sense organ disorders (1 source)Unspecified acute noninfective otitis externa, right earOnset: 11-04-2021 Resolved: 18-93-4545BkqnhourTgaiq female genital disorders (1 source)Pain in female pelvis; Translations: [Pelvic pain in female]Onset: 918463-32-8008LhtvwxiiChaqs liver diseases (1 source)Abnormal levels of other serum enzymesOnset: 07-26-2021 Resolved: 92-37-5920TlddmyejUdimi lower respiratory disease (3 sources)Cough; Translations: [COUGH]Onset: 85-40-3675VptgxprhXjivn nutritional; endocrine; and metabolic disorders (13 sources)Obesity caused by energy imbalance; Translations: [Other obesity due to excess calories]Onset: 02-19-2025 Resolved: 307353-67-3614NhkvrxoGmvrozr disorders (20 sources)Thyroid nodule; Translations: [Nontoxic single thyroid nodule]Onset: 02-19-2025 Resolved: 12-70-3116AmebfnyQogek infection (1 source)COVID-19Onset: 08-08-2021 Resolved: 08-08-2021 Results Test NameValueInterpretationReference RangeFacilityIron binding capacity [Mass/volume] in Serum or PlasmaOrdered By: Indy Gilbert on 05-25-2025 Iron binding capacity [Mass/Vol]357.0 ug/dL250.0-450.0[facility] HospitalIron saturation [Mass Fraction] in Serum or PlasmaOrdered By: Indy Gilbert on 61-99-0866Extt saturation [Mass fraction]18.5 %[facility] HospitalLaboratory - Chemistry and Chemistry - challengeOrdered By: Indy Gilbert on 79-86-9255Ltaqgseoo (Vitamin B12) [Mass/Vol]1204 pg/mL 232-1245[facility] HospitalComment on above:Performed at: - [facility] [id number] [place], [place] [id number] Director: Augustine Layton PhD, Phone: [phone] [Mass/Vol]187.0 ng/mL8.0-252.0[facility] HospitalIron [Mass/Vol]66.0 ug/dL50.0-170.0[facility] HospitalNo Panel InformationOrdered By: Indy Gilbert on 05-25-2025 25-Hydroxy Vitamin D Total54.9 ng/mLFayette County Memorial HospitalComment on above:<20 ng/mL Vit D vczxsqyxz51-<30 ng/mL Vit D ushmaixjugdt62-040 ng/mL Vit D sufficient>100 ng/mL Potential SzvzllguRnevpz09.60 ng/mL8.60-58.90[facility] HospitalLaboratory - Chemistry and Chemistry - challengeOrdered By: Candice Marvin on 76-90-8307Vuys T4 [Mass/Vol]1.04 ng/dL0.76-1.46[facility] HospitalTS Qn0.956 m[IU]/L0.358-3.740[facility] HospitalNo Panel InformationOrdered By: Candice Marvin on 16-96-4153Uyuc Triiodothyronine2.37 pg/mL2.18-3.98[facility] HospitalLon 03-07-2025L Specimen: [id number] Received: 03/08/25-1312 Status: EDI Landis Num: [id number] Spec Type: Cytology Subm Dr: Jose Harden,DO Tissues: A FNA SLIDES NOPATH (LT THYROID NODULE) Procedures: Cyto Int and Re, PAPSTN/10 Age/ Patient Sex Location Account Attending Physician Siva Weems 29 [place] [phone] Jose Harden DO SPEC NUM: [id number] RECD: 03/08/25 STATUS: EDI LOERAYuniel NUM: [id number] [place]: 03/07/25-5 [facility] DR: Jose Harden DO ENTERED: 03/08/25-1313 [facility] DR: RAZIA TYPE: Cytology DEPT: CNG ENTERED BY: [id number] RECV BY: [id number] ORDERED: Cyto Int and Re, PAPSTN/10 ORDERED: Cyto Int and Re, PAPSTN/10 Pathological Diagnosis Left thyroid nodule, fine needle aspiration (ThinPrep and Smears Slides): - Suboptimal for evaluation due to scant cellularity. - Few benign appearance follicular cells and abundant watery colloid consistent with colloid nodule ([place] Category: II) - Negative for malignant cells. Clinical Information Left Thyroid Nodule Gross Description Received fixed in Cytolyt is 30 ml colorless clear fixed fluid for cytology said to have been obtained as Left Thyrod Nodule. ThinPrep preparations are prepared for microscopic examination. Also received are 9 smeared slides for pap and a Veracyte vial stored at -20 for microscopic examination. (/sc) Microscopic Description Microscopic examination is performed. Specimen: [id number] Received: 03/08/25 Status: EDI Boby Num: [id number] Spec Type: Cytology Subm Dr: Jose Harden,DO Tissues: A FNA SLIDES NOPATH (LT THYROID NODULE) Procedures: Cyto Int and Re, PAPSTN/10 Patient: Siva Weems Amaya [id number] (Continued) Specimen: [id number] Received: 03/08/25 (Continued) Signed (signature on file) Akshat Cox MD 03/09/25 0838 Specimen: [id number] Received: 03/08/25 Status: EDI Landis Num: [id number] Spec Type: Cytology Subm Dr: Jose Harden DO Tissues: A FNA SLIDES NOPATH (LT THYROID NODULE) Procedures: Cyto Int and Re, PAPSTN/10 Patient: Ann-Marie Weemsleticia Conde [id number] (Continued) Specimen: Aram Received: 03/08/25 (Continued) CPT Codes 77802, 57813 Specimen: [id number] Received: 03/08/25 Status: EDI Landis Num: [id number] Spec Type: Cytology Subm Dr: Jose Harden,DO Tissues: A FNA SLIDES NOPATH (LT THYROID NODULE) Procedures: Cyto Int and Re, PAPSTN/10 Patient: DankSiva Amaya [id number] (Continued) Signed (signature on file) Akshat Cox MD 03/09/25 0838Normal [facility] Physician GroupSerum or plasma thyroperoxidase antibody assay (units/volume)Ordered By: Jose Harden on 11-08-6264PBF Ab Qn9 [IU]/mL0-34 [facility] HospitalComment on above:Performed at: - [facility] [id number] Director: Augustine Layton PhD, Phone: [phone] THYROXINE (T4)on 25-48-7257L0 [Mass/Vol]11.6 ug/dL4.80 - 13.90 ug/dLNOMS HealthcareCLINISYNCNOMS HealthcareBasophils Auto (Bld) [#/Vol]on 03-15-5992Ceqbyluhc (Bld) [#/Vol]0.0 10 3/uL0.0-0.1FClinton Memorial HospitalBasophils/100 WBC Auto (Bld)on 68-35-0062Pgrwaeeix/100 WBC (Bld)0.4 % 0.2-2.0[facility] HospitalEosinophils/100 WBC Auto (Bld)on 01-03-3988Ikwhbqazrjy/100 WBC (Bld)4.7 %0.9-7.0[facility] Erythrocyte distribution width Auto (RBC) [Ratio]on 25-75-1285Groadwrfjty distribution width (RBC) [Ratio]13.2 %11.0-15.0[facility] Glucose mean value [Mass/volume] in Blood Estimated from glycated hemoglobinon 96-40-6696Dmgklte glucose Estimated from glycated hemoglobin (Bld) [Mass/Vol]105 mg/dLFayette County Memorial HospitalHematocrit Auto (Bld) [Volume fraction]on 32-38-3909Akoseifjgu (Bld) [Volume fraction]40.6 %36.0-48.0[facility] HospitalHemoglobin A1c percentageon 15-46-6534XzG2g (Bld) [Mass fraction] 5.3 %4.5-6.2FClinton Memorial HospitalComment on above:ADA RECOMMENDED LIMIT 4.0 - 6.0ADA THERAPEUTIC TARGET < 7.0ACTION SUGGESTED> 7.0Hemoglobin [Mass/volume] in Bloodon 46-37-2898Qlukbfahqm (Bld) [Mass/Vol]13.8 g/dL12.0-16.0 [facility] HospitalLaboratory - Chemistry and Chemistry - challengeon 56-26-3600Jwep T4 [Mass/Vol]1.07 ng/dL0.76-1.46[facility] HospitalTSH Qn0.925 m[IU]/L0.358-3.740[facility] HospitalT4 [Mass/Vol]11.60 ug/dL4.80-13.90[facility] HospitalLaboratory - Hematology and Cell countson 38-15-5700Ipfpnkrd granulocytes/100 WBC (Bld)0.3 % 0.0-0.5FClinton Memorial HospitalLeukocytes [#/volume] corrected for nucleated erythrocytes in Blood by Automated counon 49-57-5198QNK corrected for nucl RBC Auto (Bld) [#/Vol]11.4 10 3/uLHigh4.0-11.0[facility] HospitalLymphocytes Auto (Bld) [#/Vol]on 32-93-0078Pkzojirfpjx (Bld) [#/Vol]1.7 10 3/uL1.2-3.8[facility] HospitalLymphocytes/100 WBC Auto (Bld)on 26-10-0543Ditfshlngwq/100 WBC (Bld)15.2 %Low20.5-60.0[facility] SpringfieldH Auto (RBC) [Entitic mass]on 77-03-8710OQK (RBC) [Entitic mass]27.9 pg 26.7-34.0[facility] HospitalMCHC Auto (RBC) [Mass/Vol]on 25-50-1553IUCF (RBC) [Mass/Vol]34.0 g/dL29.9-35.2FClinton Memorial HospitalMCV Auto (RBC) [Entitic vol]on 58-11-9837NHM (RBC) [Entitic vol]82.2 fL 81.0-99.0[facility] HospitalMonocytes Auto (Bld) [#/Vol]on 49-32-7056Rncksnvmt (Bld) [#/Vol]0.5 10 3/uL0.3-0.8[facility] HospitalMonocytes/100 WBC Auto (Bld)on 09-94-0630Gfaqjdinm/100 WBC (Bld)4.1 % 1.7-12.0[facility] HospitalNeutrophils Auto (Bld) [#/Vol]on 42-83-0218Mdcjshxyerj (Bld) [#/Vol]8.6 10 3/uLHigh1.4-6.5FClinton Memorial HospitalNeutrophils/100 WBC Auto (Bld)on 81-18-2208Nwloetpvjva/100 WBC (Bld)75.3 %High43.0-75.0[facility] HospitalNo Panel Information Ordered By: Magno Staley on 56-89-1020Rdpgbnlmmphtrziprkqkph (DHEA)243 ng/dL 31-701F[facility] HospitalComment on above:This test was developed and its performance characteristicsdetermined by [employer]. It has not been cl eared orapproved by the Food and Drug Administration.Performed at: [address] [id number] Director: Mandi Herrera MD, Phone: [phone] Tytibqo009.0 ug/dL84.8-378.0 [facility] HospitalFollicle Stimulating Hormone2.6 mIU/mL. [facility] HospitalComment on above:Adult Female Range Follicular phase 3.5 - 12.5 Ovulation phase 4.7 - 21.5 Luteal phase 1.7 - 7.7 Pos tmenopausal 25.8 - 134.8Total Dvdznylsensgwuqk467 ng/tQGmhmbmik09-591VkrsiljysFayette County Memorial HospitalComment on above:Performed at: [facility] [id number] Director: Augustine Layton PhD, Phone: [phone] Panel Informationon 93-26-8915Qggzbckszxv # (Auto)0.5 10 3/uL 0.0-0.7FClinton Memorial HospitalFree Triiodothyronine3.04 pg/mL2.18-3.98 [facility] HospitalHuman Chorionic Gonadotropin, Quant<1 mIU/mL [facility] HospitalComment on above:5-50 0.2-1 CEMN21-127 1-2 BFGKW194-4,000 2-3 VXGHM400-68,000 3-4 WEEKS1,000-50,000 4-5 WEEKS10,000-100,000 5-6 WEEKS15,000-200,000 6-8 WEEKS10,000-100,000 2-3 MONTHSImmature Granulocyte # (Auto)0.03 10 3/uL0.00-0.03F[facility] HospitalPlatelet mean volume Auto (Bld) [Entitic vol]on 15-33-8152Xbxxnjvq mean volume (Bld) [Entitic vol]8.9 fLLow9.5-13.5FClinton Memorial HospitalPlatelets Auto (Bld) [#/Vol]on 36-21-5648Igngyvwud (Bld) [#/Vol]363 10 3/qN254-658NbdssxrdyFayette County Memorial HospitalRBC Auto (Bld) [#/Vol]on 97-21-3042NIJ (Bld) [#/Vol]4.94 10 6/uL 4.20-5.40Parkview Healtherum or plasma lutropin measurement (units/volume)Ordered By: Magno Staley on 73-49-7080Dkpbaqrq Qn4.4 m[IU]/mL. [facility] HospitalComment on above:Adult Female Range Follicular phase 2.4 - 12.6 Ovulation phase 14.0 - 95.6 Luteal phase 1.0 - 11.4 P ostmenopausal 7.7 - 58.5Performed at: [facility] [id number] Director: Augustine Layton PhD, Phone: [phone] PELVIS TRANSVAGINALon 69-90-5869[place], [place] [address] Ultrasound Report Signed Patient: SIVA WEEMS MR#: [id number] : 1995 Acct:[id number] Age/Sex: 29 / F ADM Date: 01/17/25 Loc: US Attending Dr: Magno Staley D.O. Ordering Physician: Magno Staley D.O. Date of Service: 01/17/25 Procedure(s): US pelvis transvaginal Accession Number(s): [id number] cc: Magno Staley D.O.; INDY GILBERT [address] [address] Patient Name: SIVA WEEMS MRN: [id number] date: 1995 Sex: F Assigned Patient Location: US Current Patient Location: US Accession/Order Number: [id number] Exam Date: 01/17/2025 07:59 Report Date: 01/17/2025 [...] DOMINANT ADNEXAL CYSTS. Impression dictated by: Rachel Elais M.D. 01/17/2025 8:02 AM Dictation Location: [place] [address] Electronically authenticated by: [id number] Y Date: 01/17/2025 08:02 Dictated By: Rachel Elias M.D. Signed By: 01/17/2505 DD/ 1 TD/TT: Ply Bander:TBHRadiology, Radiologist, MD - 01/17/2025 [place] [address] Ultrasound Report Signed Patient: SIVA WEEMS MR#: [id number] : 1995 Acct:[id number] Age/Sex: 29 / F ADM Date: 01/17/25 Loc: US Attending Dr: Magno Staley D.O. Ordering Physician: Magno Staley D.O. Date of Service: 01/17/25 Procedure(s): US pelvis transvaginal Accession Number(s): [id number] cc: Magno Staley D.O.; INDY GILBERT [place] [address] Patient Name: SIVA WEEMS MRN: [id number] date: 1995 Sex: F Assigned Patient Location: US Current Patient Location: US Accession/Order Number: [id number] Exam Date: 01/17/2025 07:59 Report Date: 01/17/2025 [...] Elias M.D. 01/17/2025 8:02 AM Dictation Location: [place] [address] Electronically authenticated by: [id number] Y Date: 01/17/2025 08:02 Dictated By: Rachel Elias M.D. Signed By: 01/17/25804 DD/ 1 TD/TT: Ply Bander: WILLIAM HealthcareRadiology Study observation (narrative)NOMS HealthcareUS PELVIS TRANSVAGINALOrdered By: Radiologist Radiology on 99-55-6769TMUJ [facility] Work Phone: cBC WITH AUTO DIFFERENTIALon 17-76-6994PUDACARDC ABSOLUTE COUNT (10*3/UL) BY AUTOMATED COUNT0.0 10*3/uLNormalOhioHealth Pickerington Methodist HospitalComment on above:Performed By: #### CBCA #### [facility] ([facility]) [address] [place] [address] VIRBASOPHILS RELATIVE PERCENT BY AUTOMATED COUNT0.4 %Normal [facility] Methodist HospitalComment on above:Performed By: #### CBCA #### [facility] ([facility]) [address] [place] [address] VIRCELLAVISION DIFFERENTIAL TYPEAUTOMATED DIFFERENTIALSsm Health Cardinal Glennon Children'S Hospitalal [facility] HospitalComment on above:Performed By: #### CBCA #### [facility] ([facility]) [address] [place] [address] VIREosinophils (Bld) [#/Vol]0.5 10*3/uLNoalOhioHealth Pickerington Methodist HospitalComment on above:Performed By: #### CBCA #### [facility] ([facility]) [address] [place] [address] VIREOSINOPHILS RELATIVE PERCENT BY AUTOMATED COUNT4.9 %Normal [facility] HospitalComment on above:Performed By: #### CBCA #### [facility] ([facility]) [address] [place] [address] VIRErythrocyte distribution width (RBC) [Ratio]14.3 %Normal 11.5-15[facility] Methodist HospitalComment on above:Performed By: #### CBCA #### [facility] ([facility]) [address] [place] [address] VIRHematocrit (Bld) [Volume fraction]41.7 %Azyupl60-15AfcIuqtrpMemorial Hermann Cypress HospitalComment on above:Performed By: #### CBCA #### [facility] ([facility]) [address] [place] [address] VIRHemoglobin (Bld) [Mass/Vol]13.9 g/dGCnsvjj49.7-15.5ProMedica John George Psychiatric PavilionComment on above:Performed By: #### CBCA #### [facility] ([facility]) [address] [place] [address] VIRLYMPHOCYTES ABSOLUTE COUNT (10*3/UL) BY AUTOMATED COUNT2.0 10*3/uLNoUniversity Hospitals Samaritan Medical CenterComment on above:Performed By: #### CBCA #### [facility] ([facility]) [address] [place] [address] VIRLYMPHOCYTES RELATIVE PERCENT BY AUTOMATED COUNT21.5 %Normal [facility] HospitalComment on above:Performed By: #### CBCA #### [facility] ([facility]) [address] [place] [address] VIRMCH (RBC) [Entitic mass]27.4 dlCpvduo50-89MqbOqqokoOhioHealth Pickerington Methodist HospitalComment on above:Performed By: #### CBCA #### [facility] ([facility]) [address] [place] [address] VIRMCHC (RBC) [Mass/Vol]33.2 g/gNTrmfcj06-39VttFcrwivMemorial Hermann Cypress HospitalComment on above:Performed By: #### CBCA #### [facility] ([facility]) [address] [place] [address] VIRMCV (RBC) [Entitic vol]83 mOPtpzhb79-826MaxAhqebn Fremont HospitalComment on above:Performed By: #### CBCA #### [facility] ([facility]) [address] [place] [address] VIRMONOCYTES ABSOLUTE COUNT (10*3/UL) BY AUTOMATED COUNT0.4 10*3/uLFirelands Regional Medical Center South CampusComment on above:Performed By: #### CBCA #### [facility] ([facility]) [address] [place] [address] VIRMONOCYTES RELATIVE PERCENT BY AUTOMATED COUNT4.4 %Normal [facility] HospitalComment on above:Performed By: #### CBCA #### [facility] ([facility]) [address] [place] [address] VIRNEUTROPHILS ABSOLUTE COUNT BY AUTOMATED COUNT6.3 10*3/uL NormalOhioHealth Pickerington Methodist HospitalComment on above:Performed By: #### CBCA #### [facility] ([facility]) [address] [place] [address] VIRNEUTROPHILS RELATIVE PERCENT BY AUTOMATED COUNT68.8 %Normal [facility] Methodist HospitalComment on above:Performed By: #### CBCA #### [facility] ([facility]) [address] [place] [address] VIRPlatelet mean volume (Bld) [Entitic vol]7.5 fLNormal7-12 [facility] HospitalComment on above:Performed By: #### CBCA #### [facility] ([facility]) [address] [place] [address] VIRPlatelets (Bld) [#/Vol]292 10*3/rBRgmmja614-197VpjBvucvjOhioHealth Pickerington Methodist HospitalComment on above:Performed By: #### CBCA #### [facility] ([facility]) [address] [place] [address] VIRRBC COUNT5.05 X10E12/LNormal3.8-5.2Pro[facility] Psychiatric PavilionComment on above:Performed By: #### CBCA #### [facility] ([facility]) [address] [place] [address] VIRWBC (Bld) [#/Vol]9.2 10*3/uLNormal4-11[facility] HospitalComment on above:Performed By: #### CBCA #### [facility] ([facility]) [address] [place] [address] VIRCOMPREHENSIVE METABOLIC PANELon 67-87-6042Ocdumsz [Mass/Vol] 4.5 g/dLNormal3.2-5.3PCorey HospitalComment on above:Performed By: #### CMP #### [facility] ([facility]) [address] [place] [address] VIRALP [Catalytic activity/Vol]80 U/KGjttog64-140KnmQlmfofMemorial Hermann Cypress HospitalComment on above:Performed By: #### CMP #### [facility] ([facility]) [address] [place] [address] VIRALT [Catalytic activity/Vol]17 U/LNormal<=31PCorey HospitalComment on above:Performed By: #### CMP #### [facility] ([facility]) [address] [place] [address] VIRAnion gap [Moles/Vol]10 mmol/LNormal5-15ProMemorial Hermann Cypress HospitalComment on above:Performed By: #### CMP #### [facility] ([facility]) [address] [place] [address] VIRAST [Catalytic activity/Vol]22 U/LNormal<=41ProMemorial Hermann Cypress HospitalComment on above:Performed By: #### CMP #### [facility] ([facility]) [address] [place] [address] VIRBilirubin [Mass/Vol]0.4 mg/dLNormal0.3-1.2PCorey HospitalComment on above:Performed By: #### CMP #### [facility] ([facility]) [address] [place] [address] VIRCalcium [Mass/Vol]9.4 mg/dLNormal8.5-10.5PCorey HospitalComment on above:Performed By: #### CMP #### [facility] ([facility]) [address] [place] [address] VIRChloride [Moles/Vol]103 mmol/RPxyowp76-017ThyXqzqiuMemorial Hermann Cypress HospitalComment on above:Performed By: #### CMP #### [facility] ([facility]) [address] [place] [address] VIRCO2 [Moles/Vol]25 mmol/AHjepfq93-41FjtNwkgay [facility]ont HospitalComment on above:Performed By: #### CMP #### [facility] ([facility]) [address] [place] [address] VIRCreatinine [Mass/Vol]0.78 mg/dLNormal0.40-1.00ProMemorial Hermann Cypress HospitalComment on above:Result Comment: METHOD TRACEABLE TO IDMS STANDARDPerformed By: #### CMP #### [facility] ([facility]) [address] [place] [address] VIREGFR (CKD-EPI) NON-RACE DEPENDENT>^90Normal>=60ProMemorial Hermann Cypress HospitalComment on above:Result Comment: Reported eGFR is based on the CKD-EPI 2020 equation that does not use a race coefficient.Performed By: #### CMP #### [facility] ([facility]) [address] [place] [address] VIRGlucose [Mass/Vol]83 mg/qAMwdgil53-23CluUzaxoxMemorial Hermann Cypress HospitalComment on above:Performed By: #### CMP #### [facility] ([facility]) [address] [place] [address] VIRPotassium [Moles/Vol]4.6 mmol/LNormal3.5-5.0[facility] Methodist HospitalComment on above:Performed By: #### CMP #### [facility] ([facility]) [address] [place] [address] VIRProtein [Mass/Vol]8.1 g/dLHigh6.0-8.0[facility] Methodist HospitalComment on above:Performed By: #### CMP #### [facility] ([facility]) [address] [place] [address] VIRSodium [Moles/Vol]138 mmol/BCkpilx792-510TfxUtqwqm [facility] HospitalComment on above:Performed By: #### CMP #### [facility] ([facility]) [address] [place] [address] VIRUrea nitrogen [Mass/Vol]15 mg/dLNormal5-23ProMemorial Hermann Cypress HospitalComment on above:Performed By: #### CMP #### [facility] ([facility]) [address] [place] [address] VIRLIPID PROFILEon 81-71-3257Pseyubjfyow [Mass/Vol]144 mg/dLLow 150-200ProMemorial Hermann Cypress HospitalComment on above:Performed By: #### LIPR #### [facility] ([facility]) [address] [place] [address] VIRCholesterol in HDL [Mass/Vol]43 mg/dLNormal>39ProMemorial Hermann Cypress HospitalComment on above:Result Comment: HDL <40 mg/dL - High Risk HDL > or = 40mg/dL- Desirable HDL >60 mg/dL - Negative RiskPerformed By: #### LIPR #### [facility] ([facility]) [address] [place] [address] VIRCholesterol in LDL [Mass/Vol]74 mg/dLNormal<130ProMemorial Hermann Cypress HospitalComment on above:Result Comment: LDL <100 mg/dL - Desirable LDL >160 mg/dL - High RiskPerformed By: #### LIPR #### [facility] ([facility]) [address] [place] [address] VIRCHOLESTEROL:HDL3.7Ccmxio7.0-5.0[facility] Comment on above:Performed By: #### LIPR #### [facility] ([facility]) [address] [place] [address] VIRTriglyceride [Mass/Vol]133 mg/dPEuatow61-585RtaTgfspo [facility] HospitalComment on above:Performed By: #### LIPR #### [facility] ([facility]) [address] [place] [address] VIRVERY LOW NINTOYOUNBS24 mg/dLNormal0-30ProSamaritan North Health Center HospitalComment on above:Performed By: #### LIPR #### [facility] ([facility]) [address] [place] [address] VIRIGP,APTIMA HPV,AGE GDLNon [id number] GDLN ACOG TESTING Note.NOMS HealthcareComment on above:TESTS RESULT FLAG UNITS REF RANGE LAB Clinician Provided Cytology Information Source.............Cervix;Endocervix No. of containers..01 ThinPrep Vial Age Algo ACOG Shannon... FLAG LEGEND: L-Low Normal,H-High Normal,LL-Alert Low,HH-Alert High <-Panic Low,>-Panic High,A-Abnormal,AA-Critical Abnormal Performed at: 01 =G [facility] [address] [address] Debbie Capps MD, HPV APTIMANegativeNegativeNOMS HealthcareComment on above:This nucleic acid amplification test detects fourteen high- risk HPV types (16,18,31,33,35,39,45,51,52,56,58,59,66,68) without differentiation. Performed at: =G - [facility] [id number] [employer]: Debbie Capps MD, Phone: [phone] Performed at: - [facility] [id number] [employer]: Debbie Capps MD, Phone: [phone] IGP, APTIMA HPV, RFX 16/18,45Note.[facility] HospitalComment on above:TESTS RESULT FLAG UNITS REF RANGE LAB DIAGNOSIS: 02 NEGATIVE FOR INTRAEPITHELIAL LESION OR MALIGNANCY. CELLULAR CHANGES ASSOCIATED WITH INFLAMMATION ARE PRESENT. THIS SPECIMEN WAS RESCREENED PART OF OUR DIAMOND WHEEL EDGER PROGRAM. Specimen adequacy: 02 Satisfactory for evaluation. Endocervical and/or squamous metaplastic cells (endocervical component) are present. Performed by: 03 Ana Luisa Basilio, Head Banquet Waitress ([facility]) QC reviewed by: 02 Erin Shah, Supervisory Head Banquet Waitress ([facility]) . 02 Note: Note 02 The Pap [...] High,A-Abnormal,AA-Critical Abnormal Performed at: 02 WB [facility] [address] [place] [address] Debbie Capps MD, 03 KWCYT [facility] [address] [address] [place] [address] Cecil Scott MD, BRUSH-SPATULA CERVIX ENDOCERVIX CLINISYNCNOMS HealthcareMAMM POST BX DIAG UNI LTon [id number] POST BX DIAG UNI LTMAMM POST BX [...] Laila Nichole MD on 10/07/2024 3:01 PM [address] [address] [place], [place] [address]US BX BREAST US GUID INITIAL LTon 03-79-3403MX BX BREAST US GUID INITIAL LTUS BX [...] Laila Nichole MD on 10/07/2024 3:[address] [place], [place] [address]urgical Pathologyon 26-49-3194Uqjfljxi PathologyNormalProMedica Uc West Chester HospitalComment on above:Result Comment: [facility] [address] [place] [address] Surgical Pathology Consultation Patient Name:SIVA WEEMS:1995 (Age: 28)Gender:FTaken:10/04/2024Reported:10/07/2024Physician(s):Magno Staley DO ([phone])Copy To:MD NESSA LamARIZONA SPINE AND JOINT HOSPITALMARLON MalhotraNORTHWEST MEDICAL CENTERAccession #:[id number]. Rec. #:[id number]: #[id number] Final Pathologic Diagnosis Left breast,6 o'clock, 3 cmfn, mass, biopsy: BENIGN: Fibroadenoma Report Electronically Signed Out nsk/10/07/2024Melonie Lundberg MD Interpretation performed at [facility] [employer], [address] [place] [address], License number: [id number]. Clinical History Biopsy procedure: Ultrasound; Target: Mass; [...] minutes Time in formalin before processin hours (2,ns,P65-6387, m8.1) SW sxw/10/04/2024NSK Specimen(s) Received Left breast Fee Codes(s): 1; 67496APPQ DIAGNOSTIC BILATERAL W CADon 08-20-0428OMBH DIAGNOSTIC BILATERAL W CADMAMM DIAGNOSTIC BILATERAL W CAD SIVA WEEMS 1995 [id number], [id number], [id number] EXAM: MAMM DIAGNOSTIC BILATERAL W CAD, US [...] on 09/29/2024 9:23 AM 4 c BIOPSYNormalProMedica Hamm HospitalUS AXILLA (BREAST) RT LIMITEDon 09-29-2024 US AXILLA (BREAST) RT LIMITEDUS AXILLA (BREAST) RT LIMITED SIVA WEEMS 1995 [id number], [id number], [id number] EXAM: MAMM DIAGNOSTIC BILATERAL W CAD, US [...] on 09/29/2024 9:23 AM 4 c BIOPSYNormalProMedica Uc West Chester HospitalUS BREAST LT LIMITED 66-11-6966VI BREAST LT LIMITEDUS BREAST LT LIMITED [facility] 1995 [id number], [id number], [id number] EXAM: MAMM DIAGNOSTIC BILATERAL W CAD, US [...] on 09/29/2024 9:23 AM 4 c BIOPSYNormalProMedica Uc West Chester HospitalHCG ( test) Ql (U)on 04-01-2024 Interpretation and review of laboratory resultsNormalNOMS HealthcarePreg Test, UrNegativePike County Memorial Hospital HealthcareIUD Insertionon 52-95-1877Rsomwiftikhar De Leon LPN 04/02/2024 3:31 PM IUD [...] Patient will follow up after next period: yesUNC Health SoutheasternALL THYROID STIM HORMONEon 53-65-3468XNY Qn1.361 m[IU]/LNOMS HealthcareCCF APTTon 24-22-0776rNTD Coag (Bld) [Time]30.5 [facility] HealthMLR HEMOGLOBIN A1Con 36-71-3796Qushgjq [Mass/Vol]103 mg/dLKansas City VA Medical CenterHbA1c (Bld) [Mass fraction] 5.2 %4.5 - 6.2 %NOMS HealthcareComment on above:ADA RECOMMENDED LIMIT 4.0 - 6.0 ADA THERAPEUTIC TARGET < 7.0 ACTION SUGGESTED > 7.0 CLINISYNCKansas City VA Medical CenterNo Panel Informationon 23-03-6953MRJLAEUJZSWVR HealthcareCLINISYNCNProgress West HospitalSRMCOH PROTHROMBIN TIME INR W/O COUMon 59-58-7204SN Coag (PPP) [Time]10.0 [facility] INR0.94[facility] Comment on above:DESIRED INR: 2.0-3.0 CONDITIONS NOT LISTED BELOW 2.5-3.5 FOR PROSTHETIC HEART VALVE REPLACEMENT 2.5-3.5 RECURRENT THROMBOSIS TBH PREG QUANT HCGon 07-81-3737FHL QUANTITATIVE<1mIU/mLNOMS HealthcareComment on above:5-50 0.2-1 WEEK 50-500 1-2 WEEKS 100-5,000 2-3 WEEKS 500-10,000 3-4 WEEKS 1,000-50,000 4-5 WEEKS 10,000-100,000 5-6 WEEKS 15,000-200,000 6-8 WEEKS 10,000-100,000 2-3 MONTHS US PELVIS TRANSVAGINALon 34-95[place], [place] [address] Ultrasound Report Signed Patient: SIVA WEEMS MR#: [id number] : 1995 Acct:[id number] Age/Sex: 27 / F ADM Date: 11/11/23 Loc: US Attending Dr: Magno Staley D.O. Ordering Physician: Magno Staley D.O. Date of Service: 11/11/23 Procedure(s): US pelvis transvaginal Accession Number(s): [id number] cc: Magno Staley D.O.; Physician,Non-Staff [address] [place] [address] Patient Name: SIVA WEEMS MRN: [id number] date: 1995 Sex: F Assigned Patient Location: US Current Patient Location: US Accession/Order Number: [id number] Exam Date: 11/11/2023 14:06 Report Date: 11/11/2023 14:59 At the request of: MAGNO STALEY Procedure: US pelvis transvaginal EXAMINATION: US [...] ovarian simple cyst Electronically authenticated by: GLENNA ALONZO Date: 11/11/2023 14:59 Dictated By: Glenna Alonzo M.D. Signed By: 11/11/23 1507 DD/ 1094 TD/TT: Ply Bander:TBHRadiology, Radiologist, - 11/11/2023 [place] [address] Ultrasound Report Signed Patient: SIVA WEEMS MR#: [id number] : 1995 Acct:[id number] Age/Sex: 27 / F ADM Date: 11/11/23 Loc: US Attending Dr: Magno Staley D.O. Ordering Physician: Magno Staley D.O. Date of Service: 11/11/23 Procedure(s): US pelvis transvaginal Accession Number(s): [id number] cc: Magno Staley D.O.; Physician,Non-Staff [place] [address] Patient Name: SIVA WEEMS MRN: [id number] date: 1995 Sex: F Assigned Patient Location: Current Patient Location: Accession/Order Number: [id number] Exam Date: 11/11/2023 14:06 Report Date: 11/11/2023 14:59 At the request of: MAGNO STALEY Procedure: US pelvis transvaginal EXAMINATION: US [...] ovarian simple cyst Electronically authenticated by: GLENNA ALONZO Date: 11/11/2023 14:59 Dictated By: Glenna Alonzo M.D. Signed By: 11/11/23 1501 DD/ 1459 TD/TT: Ply Bander: WILLIAM HealthcareRadiology Study observation (narrative)NOMS HealthcareUS PELVIS TRANSVAGINALOrdered By: Radiologist Radiology on 72-20-7931AE[facility] Healthcare Work Phone: cOVID/FLU/RSV RT-PCRon 14-71-2867OFOA-CoV-2 (COVID-19) RNA IZZY+probe Ql (Unsp spec)NegativeBovey Wheelz Other COVID/FLU/RSV RT-PCRNegativeBovey Wheelz Other COVID/FLU RT-PCRon 86-87-2060KZJN-CoV-2 (COVID-19) RNA IZZY+probe Ql (Unsp spec)NegativeBovey Wheelz Other COVID/FLU RT-PCRNegativeBovey Wheelz Other covid Quick Testingon 67-61-8822GzuwsfZlhntmizSmktb Wheelz Other Quick Fluon 43-57-0584GETGR Ab CF (S) [Titer]Negative [facility] [place] Other FLUBV Ab CF (S) [Titer]NegativeBovey Wheelz Other covid Quick Testingon 59-89-8256CenksjFxtisvryWoegn Wheelz Other Coding Summaryon 59-03-1737Bitiyu SummaryMLBase 64 BplghcmaIGs0dSo+PGhlYWQ+LJ9LGCGzP29mmIIiaA9AU8hWWM1AABHFSFRAFO4AND0rmRC3YRucM9Pd biAv [file] IGN (more content not included)...[facility] HospitalProvider Orderson 87-53-8263Bbivnbyn Yveoxo60[id number]#1.00OTGTIFF Barnesville HospitalHepatic Function Panel Standardon 27-78-3519Xztnrhe [Mass/Vol]4.4 g/dLNormal3.5-5.0[facility] HospitalComment on above:Performed By: #### [id number] #### [facility] (DEFAULT) [address] [place] [address] 14466Spcfinc/Globulin [Mass ratio]1.0 {ratio}Low1.4-2.6MAshtabula County Medical CenterComment on above:Performed By: #### [id number] #### [facility] (DEFAULT) [address] [place] [address] 21474Vog Pxwj131 IU/CLxxu28-79Qzxavcfb HospitalComment on above:Performed By: #### [id number] #### [facility] (DEFAULT) [address] [place] [address] 07386TOP [Catalytic activity/Vol]369.0 U/LHigh14.0-54.0[facility] Hospital CompanyComment on above:Performed By: #### [id number] #### [facility] (DEFAULT) [address] [place] [address] 09494OJR [Catalytic activity/Vol]215 U/SGbsv43-02Vaghtstn HospitalComment on above:Performed By: #### [id number] #### [facility] (DEFAULT) [address] [place] [address] 78521Nytn Direct0.30 mg/dLNormal0.10-0.50[facility] Comment on above:Performed By: #### [id number] #### [facility] (DEFAULT) [address] [place] [address] 95[address]Hcwn Indirect0.8 mg/dLNormal0.2-0.8[facility] Comment on above:Performed By: #### [id number] #### [facility] (DEFAULT) [address] [place] [address] 74072Ymjf Total1.1 mg/dLNormal0.3-1.2[facility] HospitalComment on above:Performed By: #### [id number] #### [facility] (DEFAULT) [address] [place] [address] 77323Atablsqm (S) [Mass/Vol]4.2 g/dLNormal1.5-4.3[facility] HospitalComment on above:Performed By: #### [id number] #### [facility] (DEFAULT) [address] [place] [address] 73098Nsogtdk [Mass/Vol]8.6 g/dLHigh6.5-8.1MAshtabula County Medical Center Comment on above:Performed By: #### [id number] #### [facility] (DEFAULT) [address] [place] [address] 87529DAK AUTO DIFFon 11-72-2161Qoofzbnlm (Bld) [#/Vol]0.1 103/ulNormal0.0-0.1Ad[facility] County Regional Medical CenterComment on above:Performed By: #### CBC #### [facility] [address] [place], [place] [address] Ines KarenBasophils/100 WBC (Bld)0.6 %Normal0.2-2.0[facility] Comment on above:Performed By: #### CBC #### [facility] [address] [place], [place] [address] Ines KarenEosinophils (Bld) [#/Vol]0.2 103/ulNormal0.0-0.7The [facility] Medical CenterComment on above:Performed By: #### CBC #### [facility] [address] [place], [place] [address] Ines KarenEosinophils/100 WBC (Bld)2.6 %Normal0.9-7.0The [facility] Comment on above:Performed By: #### CBC #### [facility] [address] [place], [place] [address] Ines KarenErythrocyte distribution width (RBC) [Ratio]12.9 %Qrbzmw44.0-15.0The [facility] CenterComment on above:Performed By: #### CBC #### [facility] [address] [place] [address] Ines KarenHematocrit (Bld) [Volume fraction]41.3 %Ixtevu43.0-48.0The [facility] CenterComment on above:Performed By: #### CBC #### [facility] [address] [place] [address] Ines KarenHemoglobin (Bld) [Mass/Vol]13.8 g/eWBvedgg58.0-16.0The [facility] CenterComment on above:Performed By: #### CBC #### [facility] [address] [place] [address] Ines KarenIG #0.02 10e3/ulNormal0.00-0.03The [facility] CenterComment on above:Performed By: #### CBC #### [facility] [address] [place] [address] Ines KarenIG %0.2 %Normal0.0-0.5The [facility] CenterComment on above: Performed By: #### CBC #### [facility] [address] [place] [address] Ines KarenLymphocytes (Bld) [#/Vol]2.1 103/ulNormal1.2-3.8The [facility] CenterComment on above:Performed By: #### CBC #### [facility] [address] [place] [address] Ines KarenLymphocytes/100 WBC (Bld)24.9 %Squslu83.5-60.0The [facility] Comment on above:Performed By: #### CBC #### [facility] [address] [place] [address] Ines KarenMANUAL DIFF REQNONormalThe [facility] CenterComment on above: Performed By: #### CBC #### [facility] [address] [place] [address] Ines KarenMCH (RBC) [Entitic mass]27.6 mwHtrfhr01.7-34.0The [facility] Comment on above:Performed By: #### CBC #### [facility] [address] [place] [address] Ines RamosMCHC (RBC) [Mass/Vol]33.4 g/cTPsiajz87.9-35.2The [facility] Comment on above:Performed By: #### CBC #### [facility] [address] [place] [address] Ines MunguiaenMCV (RBC) [Entitic vol]82.6 sEJzcpaf53.0-99.0The [facility] Comment on above:Performed By: #### CBC #### [facility] [address] [place] [address] Ines KarenMonocytes (Bld) [#/Vol]0.6 103/ulNormal0.3-0.8The [facility] Comment on above:Performed By: #### CBC #### [facility] [address] [place] [address] Ines KarenMonocytes/100 WBC (Bld)6.9 %Normal1.7-12.0[facility] Comment on above:Performed By: #### CBC #### [facility] [address] [place] [address] Ines KarenNeutrophils (Bld) [#/Vol]5.5 103/ulNormal1.4-6.5The [facility] CenterComment on above:Performed By: #### CBC #### [facility] [address] [place] [address] Ines KarenNeutrophils/100 WBC (Bld)64.8 %Ltbggo24.0-75.0The [facility] Comment on above:Performed By: #### CBC #### [facility] [address] [place] [address] Ines KarenPlatelet mean volume (Bld) [Entitic vol]8.9 fLCritically low9.5-13.5 The [facility] CenterComment on above:Performed By: #### CBC #### [facility] [address] [place] [address] Ines KarenPlatelets (Bld) [#/Vol]360 103/auDdcufr162-894FkzAdams County Regional Medical Center Comment on above:Performed By: #### CBC #### [facility] [address] [place] [address] Ines KarenRBC (Bld) [#/Vol]5.00 106/ulNormal4.20-5.40[facility] Comment on above:Performed By: #### CBC #### [facility] [address] [place] [address] Ines KarenWBC (Bld) [#/Vol]8.4 103/ulNormal4.0-11.0[facility] Comment on above:Performed By: #### CBC #### [facility] [address] [place] [address] Ines KarenLIPID PROFILEon 22-49-1936YLHV-HDL RATIO NORMSEE [facility] Charles HospitalComment on above:Result Comment: 3.3 - 4.4 LOW RISK 4.4 - 7.1 AVERAGE RISK 7.1 - 11.0 MODERATE RISK >11.0 HIGH RISKPerformed By: #### LIPID, CMP #### [facility] [address] [place] [address] Ines KarenCholesterol [Mass/Vol]170 mg/dLNormal<=200[facility] Comment on above:Performed By: #### LIPID, CMP #### [facility] [address] [place] [address] Ines KarenCholesterol in HDL [Mass/Vol]> or = 60 mg/dl - LOW CARDIOVASCULAR RISK <40 mg/dl - HIGH CARDIOVASCULAR RISKTrumbull Regional Medical CenterComment on above:Performed By: #### LIPID, CMP #### [facility] [address] [place] [address] Ines KarenCholesterol in HDL [Mass/Vol]43 mg/dLTrumbull Regional Medical Center Comment on above:Performed By: #### LIPID, CMP #### [facility] [address] [place] [address] Ines KarenCholesterol in LDL [Mass/Vol]115.0 mg/dLTrumbull Regional Medical Center Comment on above:Performed By: #### LIPID, CMP #### [facility] [address] [place] [address] Ines KarenCholesterol in LDL [Mass/Vol]SEE BELOWTrumbull Regional Medical Center Comment on above:Result Comment: <100 mg/dl OPTIMAL 100 - 129 mg/dl NEAR OR ABOVE OPTIMAL 130 - 159 mg/dl BORDERLINE HIGH 160 - 189 mg/dl HIGH >190 mg/dl VERY HIGHPerformed By: #### LIPID, CMP #### [facility] [address] [place] [address] Ines KarenCholesterol.total/Cholesterol in HDL [Mass ratio]4.0 {ratio}Normal The [facility] CenterComment on above:Performed By: #### LIPID, CMP #### [facility] [address] [place] [address] Ines KarenTriglyceride [Mass/Vol]60 mg/dLNormal<=150[facility] Comment on above:Performed By: #### LIPID, CMP #### [facility] [address] [place] [address] Ines KarenVLDL CALC12.0 mg/dLNoLicking Memorial HospitalComment on above: Performed By: #### LIPID, CMP #### [facility] [address] [place], [place] [address] Ines KarenPROF 14(COMP METB)on 59-17-1440Rolovhd [Mass/Vol]3.7 g/dLNormal 3.5-5.0[facility] Medical CenterComment on above:Performed By: #### LIPID, CMP #### [facility] [address] [place] [address] Ines KarenAlbumin/Globulin [Mass ratio]0.8 {ratio}NormalAdams County Regional Medical Center Comment on above:Performed By: #### LIPID, CMP #### [facility] [address] [place] [address] Ines KarenALP [Catalytic activity/Vol]123 U/DCdwien92-249[facility] Comment on above:Performed By: #### LIPID, CMP #### [facility] [address] [place] [id number] Ines KarenALT [Catalytic activity/Vol]30 U/LNormal9-52[facility] Comment on above:Performed By: #### LIPID, CMP #### [facility] [address] [place] [id number] Ines KarenAnion gap [Moles/Vol]13.3 mmol/LNormalThe [facility] CenterComment on above:Performed By: #### LIPID, CMP #### [facility] [address] [place] [address] Ines KarenAST [Catalytic activity/Vol]18 U/LZgxpap20-12IvjAdams County Regional Medical Center Comment on above:Performed By: #### LIPID, CMP #### [facility] [address] [place] [address] Ines KarenBilirubin Ql (U)0.4 mg/dLNormal0.2-1.3TCleveland Clinic Medina HospitalComment on above:Performed By: #### LIPID, CMP #### [facility] [address] [place] [address] Ines KarenCalcium [Mass/Vol]9.2 mg/dLNormal8.4-10.2[facility] Comment on above:Performed By: #### LIPID, CMP #### [facility] [address] [place] [address] Ines KarenChloride [Moles/Vol]104 mmol/ICrwajh24-092CadAdams County Regional Medical Center Comment on above:Performed By: #### LIPID, CMP #### [facility] [address] [place] [address] Ines KarenCO2 [Moles/Vol]27.9 mmol/YQesfbz44.0-30.0[facility] Comment on above:Performed By: #### LIPID, CMP #### [facility] [address] [place] [address] Ines KarenCreatinine [Mass/Vol]0.61 mg/dLNormal0.52-1.04[facility] Comment on above:Performed By: #### LIPID, CMP #### [facility] [address] [place] [address] Ines KarenEGFR-AF MALIAN>60Normal>=60The [facility] CenterComment on above: Performed By: #### LIPID, CMP #### [facility] [address] [place] [address] Ines KarenEGFR-NON AF MALIAN>60Normal>=60The [facility] CenterComment on above:Performed By: #### LIPID, CMP #### [facility] [address] [place] [address] Ines KarenGlobulin (S) [Mass/Vol]4.4 g/dLNormalThe [facility] CenterComment on above:Performed By: #### LIPID, CMP #### [facility] [address] [place] [address] Ines KarenGlucose [Mass/Vol]97 mg/sMWtjcqy33-773Yhe [facility] Medical CenterComment on above:Performed By: #### LIPID, CMP #### [facility] [address] [place] [address] Ines KarenPotassium [Moles/Vol]4.2 mmol/LNormal3.4-5.0[facility] Comment on above:Performed By: #### LIPID, CMP #### [facility] [address] [place] [address] Ines KarenProtein [Mass/Vol]8.1 g/dLNormal6.1-8.2The [facility] CenterComment on above:Performed By: #### LIPID, CMP #### [facility] [address] [place] [address] Ines KarenSodium [Moles/Vol]141 mmol/PXafoyd261-144Rvw [facility] Comment on above:Performed By: #### LIPID, CMP #### [facility] [address] [place] [id number] Ines KarenUrea nitrogen [Mass/Vol]14.0 mg/dLNormal7.0-17.0The [facility] HospitalComment on above:Performed By: #### LIPID, CMP #### [facility] [address] [place] [address] Ines KarenUrea nitrogen/Creatinine [Mass ratio]23.0 mg/mgProMedica Defiance Regional Hospital on above:Performed By: #### LIPID, CMP #### [facility] [address] [place] [address] Ines KarenCULTURE THROATon 28-53-0729WWSUWFA THROATCulture Observations: Normal respiratory kaey.NormalThe [facility] on above:Performed By: #### SSCRN, THRTCX #### [facility] [address] [place] [address] Ines KarenINFLUENZA A AND B AGon 75-52-2361ERSRKCMKEVIVPHocking Valley Community Hospital on above:Result Comment: Negative for Flu A protein angiten. Infection due to Flu A cannot be ruled out. FluA angiten in the sample may be below the detection limit of the test.Performed By: #### INFLUAB #### [facility] [address] [place] [address] Ines KarenINFLUBNEGGalion HospitalComformerly [facility] on above: Result Comment: Negative for Flu B protein antigen. Infection due to Flu B cannot be ruled out. FluB antigen in the sample may be below the detection limit of the test.Performed By: #### INFLUAB #### [facility] [address] [place] [address] Ines KarenINFLUENZA A AGNegativeNormalNEGATIVE SEE COMMENTThe [facility] on above:Performed By: #### INFLUAB #### [facility] [address] [place] [address] Ines KarenINFLUENZA B AGNegativeNormalNEGATIVE SEE COMMENTThe [facility] on above:Performed By: #### INFLUAB #### [facility] [address] [place] [address] Ines KarenINTERNAL CONTROLSWithin Normal LimitsNormalWithin Normal LimitsThe [facility] on above:Performed By: #### INFLUAB #### [facility] [address] [place] [address] Ines KarenSTREPT SCREENon 77-92-4263FNDXW SCREEN ANegativeNormalNEGATIVEThe [facility] CenterComment on above:Performed By: #### SSCRN, THRTCX #### [facility] [address] [place] [address] Ines KarenXR CHEST 2 Von 56-18-2513XC CHEST 2 VPatient: KUMARKENDALLSIVAGus Exam Date: 07/31/2019 : 1995 Gender:F Ordering : DR. KRISH GO . Admission #: [id number] Family : DR RENETTA SHOOK . Order #: [id number] CLICK HERE TO VIEW EXAM RADIOLOGY REPORT [...] by: Glenna Alonzo M.D. on 07/31/2019 at 09:07[facility] Vital Signs Date TimeVital SignValuePerforming WfzsmmtqvDvevqilb32-06-1528 07:58-0500Body .02 cmIndy Gilbert APRN Work Phone: [facility]11-04-2025 07:58-0500 Body mass index (BMI) [Ratio]37.2 kg/n5OpwtzquwIndy Gilbert COMPANY ACCOUNTANT Work Phone: [facility]11-04-2025 07:58-0500 Body .25 kgIndy Gilbert COMPANY ACCOUNTANT Work Phone: [facility]11-04-2025 07:58-0500 Diastolic blood enfsbdfk65 mm[Hg]Indy Rohgino COMPANY ACCOUNTANT Work Phone: [phone] [place], [place] [address]11-04-2025 07:58-0500 Heart jcpf932 /Derrick Szymanskirheaantoniettar COMPANY ACCOUNTANT Work Phone: [phone] [place], [place] 77[address]11-04-2025 07:58-0500 Respiratory rate12 /Derrick Szymanskirheaacher COMPANY ACCOUNTANT Work Phone: [phone] [place], [place] [address]11-04-2025 07:58-0500 SaO2% (BldA) [Mass fraction]98 %Indy Szymanskirheaantoniettakia COMPANY ACCOUNTANT Work Phone: [phone] [place], [place] 7700711-04-2025 07:58-0500 Systolic blood kekgwcqg637 mm[Hg]Indy Szymanskirheaantoniettakia COMPANY ACCOUNTANT Work Phone: [phone] [place], [place] 7700709-09-2025 08:25-0400 Body cldghu890.02 cmIndy Szymanskirheaantoniettar COMPANY ACCOUNTANT Work Phone: [phone] [place], [place] 7700709-09-2025 08:25-0400 Body mass index (BMI) [Ratio]36.6 kg/v0HoievedqIndy Silveracher COMPANY ACCOUNTANT Work Phone: [phone] [place], [place] 7700709-09-2025 08:25-0400 Body wnspkqqecsw18.4 [degF]Indy Szymanskigino COMPANY ACCOUNTANT Work Phone: [phone] [place], [place] 7700709-09-2025 08:25-0400 Body .89 kgIndy Silveracher COMPANY ACCOUNTANT Work Phone: [phone] [place], [place] 7700709-09-2025 08:25-0400 Diastolic blood dyboiqrm15 mm[Hg]Indy Szymanskirheaantoniettakia COMPANY ACCOUNTANT Work Phone: [phone] [place], [place] 7700709-09-2025 08:25-0400 Heart xzto786 /Derrick Szymanskirheaacher COMPANY ACCOUNTANT Work Phone: [phone] [place], [place] 7700709-09-2025 08:25-0400 SaO2% (BldA) [Mass fraction]98 %Indy Szymanskigino DUEÑAS Work Phone: [facility]09-09-2025 08:25-0400 Systolic blood bqbkgxon368 mm[Hg]Indy Richardsonkia DUEÑAS Work Phone: [facility]08-18-2025 13:42-0400 Body lzhzra777 Kendrick Marvin MD Work Phone: [facility] CenterKihlerajhc98-77-8420 13:42-0400Body mass index (BMI) [Ratio]36.49 kg/v6DskseCandice Marvin MD Work Phone: [facility] CenterNiapjlkrtv50-42-7285 13:42-0400Body tiawnc28.44 kgCandice Marvin MD Work Phone: [facility] CenterYhefjasntn50-15-0307 13:42-0400Heart bivy083 /min Candice Marvin MD Work Phone: [address] [place], [place] [address]Bbjcnikvyx32-60-5237 13:42-0400Respiratory rate16 /minCandice Marvin MD Work Phone: [facility] CenterWsxkhnipah27-89-7983 13:42-0596CvA4% (BldA) [Mass fraction]98 %Candice Marvin MD Work Phone: [facility] CenterCgjlymtiot64-69-5455 10:42-0400Body cm Jose Harden DO Work Phone: [facility] CenterPmfrvilwrs84-79-9065 10:42-0400Body mass index (BMI) [Ratio]35.43 kg/m2Paul Biedengraham DO Work Phone: [facility] CenterZadhxgwrai86-15-5522 10:42-0400Body .72 kgPaul Thor DO Work Phone: [facility] CenterGznrmzvcrg76-99-5285 14:04-0400Body psyrjs215 cm Jose Harden DO Work Phone: [facility] CenterApmjwolchh88-10-6310 14:04-0400Body mass index (BMI) [Ratio]35.43 kg/m2Paul Biedenbach DO Work Phone: [facility] CenterIhustyohgk04-09-2695 14:040400Body unurud64.72 kgPaul Biedenbach DO Work Phone: [facility] CenterQafqniwzuo08-22-1185 13:23-0400Body .02 cmRaymondshahla Gilbert COMPANY ACCOUNTANT Work Phone: [facility]06-24-2025 13:23-0400 Body mass index (BMI) [Ratio]36.5 kg/g0Vgfzshezshahla Gilbert COMPANY ACCOUNTANT Work Phone: [facility]06-24-2025 13:23-0400 Body fimyepgumcb03.5 [degF]Indyflaquito Gilbert COMPANY ACCOUNTANT Work Phone: [phone]-[facility]06-24-2025 13:23-0400 Body .44 kgIndy Ofelia COMPANY ACCOUNTANT Work Phone: [phone]06-24-2025 13:23-0400 Diastolic blood qypphfgf11 mm[Hg]Indyflaquito Gilbert APRN Work Phone: [facility]06-24-2025 13:23-0400 Heart ymam744 /minRaymondshahla Gilbert COMPANY ACCOUNTANT Work Phone: [phone]06-24-2025 13:23-0400 SaO2% (BldA) [Mass fraction]99 %Indy Ofelia [employer] ACCOUNTANT Work Phone: [facility]06-24-2025 13:23-0400 Systolic blood qvjsrysk197 mm[Hg]Indyflaquito Gilbert COMPANY ACCOUNTANT Work Phone: [facility]05-19-2025 13:23-0400 Body mass index (BMI) [Ratio]36.87 kg/f1VmqmdixeTierney Bass NP Work Phone: [facility] CenterAtmhebikac25-11-1916 13:23-0400Body xobfuh25.41 kgTierney Bass INDEPENDENT DRIVER Work Phone: [facility] CenterRphxxwvjsy25-22-8583 08:11-0400Body .02 cm[facility]05-06-2025 08:11-0400Body mass index (BMI) [Ratio]36.5 kg/v1XgehcgqjzFayette County Memorial Hospital05-06-2025 08:11-0400Body cvvlontsxdr80.8 [degF][facility]05-06-2025 08:11-0400Body opoerx61.44 kgF[facility]05-06-2025 08:11-0400Diastolic blood jfopmmql21 mm[Hg][facility]05-06-2025 08:11-0400 Heart rate96 /minF[facility] Hospital05-06-2025 08:11-1993VuS0% (BldA) [Mass fraction]99 %[facility]05-06-2025 08:11-0400 Systolic blood ijzwlgnv091 mm[Hg][facility]03-12-2025 09:38-0400Body cmLindsey Kamaras DO Work Phone: [facility]03-12-2025 09:38-0400Body mass index (BMI) [Ratio]38.16 kg/d2CqfeekcLindsey Kamaras DO Work Phone: [facility]03-12-2025 09:38-0400Body qzjyba12.7 kgMicthi Kamaras DO Work Phone: [facility]03-12-2025 09:38-0400Diastolic blood egskroib66 mm[Hg]Lindsey Pearl DO Work Phone: [facility]03-12-2025 09:38-0400Heart rate 119 /minLindsey Kamaras DO Work Phone: [facility]03-12-2025 09:38-0400Systolic blood wqhlakvs800 mm[Hg]Lindsey Pearl DO Work Phone: [facility]02-06-2025 10:05-0500Body mass index (BMI) [Ratio]39.17 kg/r9Kyneg Rebeka DO Work Phone: [facility] CenterOnmkjrbclz61-57-3560 10:05-0500Body .3 kgCorey Rebeka DO Work Phone: [facility] CenterHzovhsijdt76-53-5201 10:05-0500Diastolic blood ryujamqq48 mm[Hg]Magno Rebeka DO Work Phone: 1([phone]-[facility] CenterChnganyowo47-21-0675 10:05-0500Systolic blood nbiwvvjx228 mm[Hg]Magno Rebeka DO Work Phone: 1(119)133-[address] [place], [place] [address]Eedjjdpdow01-47-1538 08:44-0500Body mass index (BMI) [Ratio]40.39 kg/m2Mirela SCHAEFFER Work Phone: 1(877)858-[address] [place], [place] [address]Obnwgeksil72-16-4542 08:44-0500Body gjpuyn067.42 kgMirela SCHAEFFER Work Phone: [phone])152-[address] [place], [place] [address]Izzsgaswnb11-35-2651 08:44-0500Diastolic blood ikotqami96 mm[Hg]Mirela SCHAEFFER Work Phone: 1(146)991-[address] [place], [place] [address]Qmsllsivzb13-93-1537 08:44-0500Systolic blood hssewrjz284 mm[Hg]Mirela SCHAEFFER Work Phone: [phone] [place], [place] [address]Knbstdzrsv73-26-7167 09:30-0500Body mass index (BMI) [Ratio]41.77 kg/n1Oxycq Rebeka DO Work Phone: 1(877)780-[address] [place], [place] [address]Mlxjpuecnd09-92-2001 09:30-0500Body ekxmru905.96 kgCorey Rebeka DO Work Phone: [phone])962-[address] [place], [place] [address]Hinvcppmfv92-34-3816 09:30-0500Diastolic blood kjpvxstu26 mm[Hg]Magno Rebeka DO Work Phone: 1(066)832-[address] [place], [place] [address]Xccglprfho80-95-2816 09:30-0500Systolic blood ldngwxis691 mm[Hg]Magno Rebeka DO Work Phone: [facility] CenterGdsmsirzzm58-61-7117 13:56-0500Body mass index (BMI) [Ratio]41.63 kg/u6Mjrdh Rebeka DO Work Phone: [facility] CenterCvxlbicueo87-90-2722 13:56-0500Body cihtzh544.59 kgCorey Rebeka DO Work Phone: [facility] CenterXiquqmapxn63-13-3106 13:56-0500Diastolic blood gwppscdo60 mm[Hg][employer] Pharmaceuticalso DO Work Phone: [facility] CenterUdxlmrwgpn85-06-5273 13:56-0500Systolic blood bibkdurq363 mm[Hg]Magno Rebeka Weeleo Work Phone: [facility] CenterUptngootqf60-61-4857 08:40-0400Body hslgyl607.02 cmF[facility]10-25-2024 08:40-0400Body mass index (BMI) [Ratio]42.2 kg/o5ZdhgiernmFayette County Memorial Hospital10-25-2024 08:40-0400Body evtvxqnuodt26.3 [degF][facility]10-25-2024 08:40-0400Body aegode062.12 kgF[facility] Hospital10-25-2024 08:40-0400Diastolic blood qtpyorsi46 mm[Hg][facility]10-25-2024 08:40-0400 Heart rate89 /minFayette County Memorial Hospital10-25-2024 08:40-4916RfU7% (BldA) [Mass fraction]98 %[facility]10-25-2024 08:40-0400 Systolic blood xnwwloev844 mm[Hg][facility]09-26-2024 08:58-0400Body mass index (BMI) [Ratio]41.7 kg/h3Pioiq Rebeka DO Work Phone: [phone] CenterYqgdodakrn30-68-1792 08:58-0400Body crqtay999.78 kgCorey Rebeka Weeleo Work Phone: [facility] CenterYefbduzyzm89-15-8174 08:58-0400Diastolic blood mm[Hg]Magno Rebeka DO Work Phone: [facility] CenterIttresdoma63-39-0435 08:58-0400Systolic blood dgymtwea715 mm[Hg]Magno Rebeka DO Work Phone: [facility] CenterEirkccrqwm67-72-6167 09:48-0400Body ugmsou537 cm Magno Rebeka DO Work Phone: [facility] Vpqbxlmmwz33-75-5971 09:48-0400Body mass index (BMI) [Ratio]41.42 kg/z3Gpqtm Rebeka DO Work Phone: [facility] Cfohniztps55-44-9933 09:48-0400Body sgwobs443.05 kgCorey Rebeka DO Work Phone: [facility] Mdwohqwjpb72-24-9051 09:48-0400Diastolic blood wroevpqv62 mm[Hg]Magno Rebeka DO Work Phone: [facility] Eexjhmnmzb82-41-9533 09:48-0400Systolic blood pvlaugaj086 mm[Hg]Magno Rebeka DO Work Phone: [facility] Ocvdljocot94-77-4799 13:00-0500Body edkmhe408.02 cmIndy Gilbert Other [employer] Other 01-09-2024 13:00-0500Body mass index (BMI) [Ratio] 40.92 kg/z9AlyaylcnIndy Gilbert Other [employer] Other 01-09-2024 13:00-0500Body iooqyl770.78 kgIndy Silveracher Other [employer] Other [phone] 13:00-0500Diastolic blood mm[Hg] Indy Gilbert Other [employer] Other 01-09-2024 13:00-5288AvC1% (BldA) [Mass fraction]98 % Indy Szymanskirbacher Other [employer] Other 01-09-2024 13:00-0500Systolic blood cpbmbmxa309 mm[Hg] Indy Szymanskirbacher Other [employer] Other 12-21-2023 13:00-0500Body bwamom821.02 cmIndy Szymanskirbacher Other [employer] Other 12-21-2023 13:00-0500Body mass index (BMI) [Ratio] 40.56 kg/h0DthzdjbpIndy Szymanskirbacher Other [employer] Other 12-21-2023 13:00-0500Body .87 kgIndy Szymanskirbacher Other [employer] Other 12-21-2023 13:00-0500Diastolic blood zwyadeqd88 mm[Hg] Indy Szymanskirbacher Other [employer] Other 12-21-2023 13:00-9551SeX7% (BldA) [Mass fraction]100 % Indy Szymanskirbacher Other [employer] Other 12-21-2023 13:00-0500Systolic blood mm[Hg] Indy Rohrbacher Other [employer] Other 06-21-2023 13:00-0400Body dxzilj645.02 cmIndy Rohrbacher Other [employer] Other 06-21-2023 13:00-0400Body mass index (BMI) [Ratio] 39.32 kg/y6MsjzdopgIndy Gilbert Other [employer] Other 06-21-2023 13:00-0400Body .7 kgIndy Gilbert Other [employer] Other 06-21-2023 13:00-0400Diastolic blood bwctcezx16 mm[Hg] Indy Gilbert Other [employer] Other 06-21-2023 13:00-0400Systolic blood bljcmqxi382 mm[Hg] Indy Gilbert Other [employer] Other 12-18-2022 10:30-0500Body feejsl238.02 cmSkarina Gross Other [employer] Other 12-18-2022 10:30-0500Body mass index (BMI) [Ratio]37.2 kg/l7Xdytjphzfkateryna Gross Other [employer] Other 12-18-2022 10:30-0500Body yhqrlycrhot64.9 [degF] Yessenia Gross Other [employer] Other 12-18-2022 10:30-0500Body cesfsa69.26 kgStepwesley Gross Other [employer] Other 12-18-2022 10:30-0500Respiratory rate18 /minStepwesley Gross Other [employer] Other 12-18-2022 10:30-1813HcE3% (BldA) [Mass fraction]99 % Yessenia Laault Other [employer] Other 10-16-2022 10:15-0400Body qapcip225.02 cmAjackiemary kate Downing Other [employer] Other 10-16-2022 10:15-0400Body mass index (BMI) [Ratio]37.2 kg/n2Rhigtmary kate Downing Other [employer] Other 10-16-2022 10:15-0400Body lqijzufmwkx06.6 [degF]Lili Downing Other [employer] Other 10-16-2022 10:15-0400Body sroecz20.26 kgLili Downing Other [employer] Other 10-16-2022 10:15-0400Respiratory rate18 /minLili Downing Other [employer] Other 10-16-2022 10:15-7997DtU2% (BldA) [Mass fraction]99 % Lili Downing Other [employer] Other 04-03-2022 10:20-0400Body arbtuf189.02 cmPamela Kamryn Other [employer] Other 04-03-2022 10:20-0400Body mass index (BMI) [Ratio]37.2 kg/w9Ahzvbk Kamryn Other [employer] Other 04-03-2022 10:20-0400Body rtvyifeslhd72.2 [degF]Ailyn Harry Other [employer] Other 04-03-2022 10:20-0400Body lwbyzo01.26 kgPacarlee Harry Other [employer] Other 04-03-2022 10:20-0400Respiratory rate18 /minPacarlee Harry Other [employer] Other 04-03-2022 10:20-7455UkB1% (BldA) [Mass fraction]97 % Ailyn Harry Other [employer] Other 01-05-2022 13:15-0500Body sjjxyf305.02 cmThomas Jef Other [employer] Other 01-05-2022 13:15-0500Body mass index (BMI) [Ratio] 37.73 kg/x2Awrlcx Jef Other [employer] Other 01-05-2022 13:15-0500Body cfbhugylmwb34.6 [degF]Jeramy Fuchs Other [employer] Other 01-05-2022 13:15-0500Body wwescc32.62 kgThomas Jef Other [employer] Other 01-05-2022 13:15-0500Respiratory rate16 /minThomas Jef Other [employer] Other 01-05-2022 13:15-7036MoM4% (BldA) [Mass fraction]98 % Jeramy [facility]ef [facility] Other Encounters Encounter DateEncounter TypeCare ProviderFacilityStart: 06-07-2025 End: 25-32-0641lgwqrdohnfSdjwjcxa Rohrbacher [employer] ACCOUNTANT Work Phone: [facility]2025 End: 88-35-9763Dzecrtd encounter procedureIndy Silveracher COMPANY ACCOUNTANT [facility] Work Phone: Start: 61-21-3143mytfpcetftKgxrnhIoifa: 78-71-3926Wjm- patient / Non-visitRaymondnnbrandie Szymanskirbacher COMPANY ACCOUNTANT [facility] [employer] Work Phone: Start: 04-12-2025 End: 71-32-1625vsojrzlfrhRsjoklfn Rohrbacher COMPANY ACCOUNTANT Work Phone: [facility] Work Phone: Start: 04-12-2025 End: 39-07-8358Zskbaun encounter procedureIndy Silveracher COMPANY ACCOUNTANT [facility] Work Phone: Start: 03-25-2025 End: 79-46-9579Bbndautoy encounterCandice Marvin MD Work Phone: noms Viviane EndocrinologyComment on above:Results Start: 45-33-4766Imw-patient / Non-visitCandice Marvin MD-[facility] Professional [employer] Work Phone: Start: 03-21-2025 End: 22-89-9147Xlihaa flowsheetCandice Marvin MD Work Phone: noms Viviane EndocrinologyStart: 03-21-2025 End: 17-84-5132Qdbghy Sarath Marvin MD Work Phone: noms Viviane EndocrinologyStart: 03-21-2025 End: 96-48-2730Wimybs outpatient new 45 minutesCandice Marvin MD Work Phone: NOMS Pan EndocrinologyComment on above: Multinodular goiter (Primary Dx); Abnormal finding on thyroid function test; Encounter for dietary consultation; Class 2 obesity due to excess calories without serious comorbidity with body mass index (BMI) of 36.0 to 36.9 in adultStart: 03-21-2025 End: 20-51-7881uelgmfvoqsPJYYS Wilda MILLERNot AvailableStart: 03-07-2025 End: 94-62-9523Meuhwq flowsheetPaul S Biedenbach DO Work Phone: noMS Pan OtolaryngologyStart: 03-07-2025 End: 05-79-9032Wlfrco flowsheetPaul S Biedenbach DO Work Phone: noMS Pan OtolaryngologyStart: 03-07-2025 End: 14-34-0408Cmkvzsl encounter procedureJose Harden DO-[facility] Work Phone: Start: 03-07-2025 End: 14-39-9331Acfjdx outpatient visit 25 minutesPaul S Biedenbach DO Work Phone: no [place] OtolaryngologyComment on above:Thyroid nodule (Primary Dx); Nontoxic multinodular goiterStart: 03-07-2025 End: 91-86-2957nxlsqnjnrtWqqzksxi Rohrbacher APRN Work Phone: [facility] Work Phone: Start: 70-87-1551Jbp-patient / Non-visitPaul S Biedenbach DO-[facility] Professional [employer] Work Phone: Start: 02-22-2025 End: 89-19-9854dtxzaqnfmmQIQZ S BIEDENBACHNot AvailableStart: 02-22-2025 End: 39-62-2966Pwbwvo flowsheetPaul S Biedenbach DO Work Phone: noms ENT NORWALKStart: 02-22-2025 End: 28-47-5221Vcgpkp flowsheetPaul S Biedenbach DO Work Phone: noms ENT NORWALKStart: 02-22-2025 End: 35-15-4430Vneixl outpatient new 45 minutesPaul S Biedenbach DO Work Phone: noms ENT NORWALKComment on above:Nontoxic multinodular goiter (Primary Dx); Thyroid nodule ; Thyroid dysfunctionStart: 77-12-6275donvwquoiwZevijnky Rohrbacher APRN Work Phone: [facility] Work Phone: Start: 15-86-5266Zjz-patient / Non-visitIndy Gilbert APRN [facility] Professional Co Work Phone: Start: 01-25-2025 End: 56-58-3504Ttcrtsx encounter procedureIndy Gilbert APRN [facility] Work Phone: Start: 01-17-2025 End: 54-63-7574Brdyfurkp Result EncounterCorey Rebeka DO Work Phone: noms External Department UnsolicitedStart: 01-17-2025 End: 65-13-0697Axbgpeogx Result EncounterCorey Rebeka DO Work Phone: noms External Department UnsolicitedStart: 01-17-2025 Non-patient / Non-visitCorey [facility] Professional Co Work Phone: Start: 12-20-2024 End: 42-07-4156Utmwcs flowsheetBrittneya Shelia INDEPENDENT DRIVER Work Phone: noms BCP OBStart: 12-20-2024 End: 87-15-6529Pvhkym flowsheetKristina Shelia INDEPENDENT DRIVER Work Phone: noms BCP OBStart: 12-20-2024 End: 42-93-2684Ksyiiz outpatient visit 15 minutesTierney Bass INDEPENDENT DRIVER Work Phone: N[facility] BCP OBComment on above:Encounter for weight managementStart: 12-20-2024 End: 48-90-0347lcjxaeobjfXEXIFBGI EBERLYNot AvailableStart: 12-07-2024 End: 04-70-7493ibenzdyxbdUyjnsryymMorrow County Hospital Work Phone: Start: 12-07-2024 End: 03-93-1758Ppmprzu encounter procedureFormerly [facility] Medical [facility] Work Phone: Start: 12-07-2024 End: 29-47-7067Tesrqwu encounter statusJeshahla Gilbert COMPANY ACCOUNTANT [facility] Inctart: 11-29-2024 End: 04-24-5966Fpmkcbb encounter statusJeshahla Gilbert COMPANY ACCOUNTANT-INDEPENDENT DRIVER Work Phone: [facility]art: 80-33-5434Ojsdrbwem for general adult medical examination without abnormal findingsINDY GILBERT [facility] Hospitaltart: 11-29-2024 End: 60-74-2908Jrwkgl OnlyJeshahla Gilbert COMPANY ACCOUNTANT-INDEPENDENT DRIVER Work Phone: [facility] - LabComment on above:Encounter for general adult medical examination without abnormal findings (Primary Dx)Start: 50-44-4558Xsfhxfe encounter statusParkview Healthtart: 11-03-2024 End: 05-60-5743Rmizqo flowsheetCorey Rebeka DO Work Phone: [facility] BCP OBStart: 11-03-2024 End: 57-75-9455Dfmkzt flowsheetCorey Rebeka DO Work Phone: noMS BCP OBStart: 11-03-2024 End: 14-16-6722Jozeusjfh Result EncounterCorey Rebeka DO Work Phone: NOMS External Department UnsolicitedStart: 11-03-2024 End: 69-77-4634guqenrpbmvRMWYT FAZIONot AvailableStart: 10-13-2024 End: 43-38-7297awnplsfhivLQZXIYBAurora [facility] Start: 10-13-2024 End: 17-76-0280Wgmgzt outpatient new 30 minutesMicohiohealth [facility] DO Work Phone: [facility] SurgeryComment on above: Fibroadenoma of left breast (Primary Dx); History of benign phyllodes neoplasm of breast; Family history of malignant neoplasm of ovary in first degree relativeStart: 10-06-2024 End: 80-23-7742Tetsjkzss encounterElijuancho Ennis [facility] Centerer - MammographyStart: 10-04-2024 End: 88-83-7806getirxhocuKohbji [facility] Hospitaltart: 09-29-2024 End: 26-06-8252abwlmmlsssFQBAB R FANationwide Children's Hospitaltart: 09-09-2024 End: 65-73-4889Uxssff Armando SCHAEFFER Work Phone: noms BCP OBStart: 09-09-2024 End: 32-16-5202Ghmspi flowsKristen SCHAEFFER Work Phone: noms BCP OBStart: 09-09-2024 End: 96-40-5098Xiblgr outpatient visit 15 minutesCorey Rebeka DO Work Phone: noms BCP OBComment on above:Encounter for weight management; control counseling; Phyllodes tumor of breast; Other specified disorders of breastStart: 09-09-2024 End: 30-38-7336hdzudnayefQTPUB FAZIONot AvailableStart: 08-12-2024 End: 62-67-0771Yvwybz Armando SCHAEFFER Work Phone: noms BCP OBStart: 08-12-2024 End: 57-19-2996Gfrsei Armando SCHAEFFER Work Phone: noms BCP OBStart: 08-12-2024 End: 67-33-6840Vwucteb encounter Ramonita SCHAEFFER Work Phone: noms BCP OBComment on above:Weight gain; Encounter for weight managementStart: 08-12-2024 End: 11-95-1601yaulckptlyTTQ RAMEYNot AvailableStart: 07-15-2024 End: 02-44-9491Jlyqzt flowsheetCorey Rebeka DO Work Phone: [facility] BCP OBStart: 07-15-2024 End: 45-24-8146Mangve flowsheetCorey Rebeka DO Work Phone: [facility] BCP OBStart: 07-15-2024 End: 93-02-1724Rggaxp outpatient visit 15 minutesCorey Rebeka DO Work Phone: [facility] BCP OBComment on above:Encounter for weight managementStart: 07-15-2024 End: 83-97-8236ztkrgpslhoVFSHR FAZIONot AvailableStart: 06-14-2024 End: 90-54-9145Lskdcx outpatient visit 15 minutesCorey Rebeka DO Work Phone: [facility] BCP OBComment on above:Encounter for initial prescription of contraceptives, unspecified contraceptive; Mastitis; Encounter for weight management; Breast tenderness in femaleStart: 06-14-2024 End: 72-00-2415pmifuwqtmuYDEKD FAZIONot AvailableStart: 05-28-2024 End: 69-31-0996cotbkwassuCpsqkeazeMemorial Health [facility] Work Phone: Start: 05-28-2024 End: 21-04-6727Uvhgpcj encounter procedureFormerly [facility] Work Phone: Start: 04-29-2024 End: 07-30-9707Nliwqu flowsheetCorey Rebeka DO Work Phone: [facility] BCP OBStart: 04-29-2024 End: 41-49-5751Kthssi flowsheetCorey Rebeka DO Work Phone: [facility] BCP OBStart: 04-29-2024 End: 54-80-1746Wptsji outpatient visit 10 minutesCorey Rebeka DO Work Phone: N[facility] BCP OBComment on above:Intrauterine device surveillanceStart: 04-29-2024 End: 64-35-1666yftakdebqjXONRB FAZIONot AvailableStart: 04-01-2024 End: 73-82-5103Aprooms encounter procedureCorey Rebeka DO Work Phone: noms BCP OBComment on above:Encounter for insertion of intrauterine contraceptive device (IUD); Encounter for insertion of mirena IUDStart: 04-01-2024 End: 96-73-2341zouzcwbjzeVWRMI FAZIONot AvailableStart: 11-11-2023 End: 17-93-1628Vrmjzbsve Result EncounterCorey Rebeka DO Work Phone: noms External Department UnsolicitedStart: 11-11-2023 End: 99-89-5637Qypgcecfj Result EncounterCorey Rebeka DO Work Phone: noms External Department UnsolicitedStart: 08-12-2023 End: 09-49-2763vstmcqysekUxbshgjp Roh[employer] Other [employer] Other Start: 19-82-5652Deqfpf outpatient visit 15 minutes Indy FreemanTogus [facility] ClinicStart: 07-24-2023 End: 69-92-7821orsywhtfmiXioqrhbb Rohrbacher Other [employer] Other Start: 24-79-9155Nfgawd outpatient visit 25 minutes Indy FreemanTogus [facility] Medical Center ClinicStart: 01-22-2023 End: 29-33-2677xkcwkbdpvjSkzpoqor Rohrbacher Other [employer] Other Start: 71-92-4959Xrmaws outpatient visit 15 minutes Indy FreemanTogus VA Medical Center ClinicStart: 01-16-2023 End: 71-08-8463geqpbnuwizQlkyinyl Rohrbacher Other [employer] Other Start: 73-82-0887Edcnzgqoz encounterJennifer LydiaSt. Francis Medical CenterStart: 07-21-2022 End: 18-86-7760eobofihaxyCmutqgsvh Breault Other [employer] Other Start: 90-71-6605Wmpsmg outpatient visit 25 minutes Yessenia RenatoFPG Urgent Care ClydeStart: 05-20-2022 End: 85-39-7537opkfkvjthjFhzlvctu Rohrbacher Other [employer] Other Start: 14-86-9000Xtawkjkbb encounterJejessicaifer NadeemSelect Specialty Hospital [facility] – [place] CityStart: 05-19-2022 End: 40-86-0205gsauvtaizsIyhrl Downing Other [employer] Other Start: 00-46-5690Cvtyso outpatient visit 25 minutes Lili ChangFP[facility] ClydeStart: 11-04-2021 End: 73-30-2552pvwcwxwflfRfcqsy Kamryn Other [employer] Other Start: 49-33-5653Aanfll outpatient visit 15 minutes Ailyn DymondFPG [facility] ClydeStart: 08-08-2021 End: 24-27-4578meyzbzupuoVzlugx [employer] [facility] [employer] Other [employer] Other Start: 74-69-7005Twplhh outpatient visit 15 minutes Jeramy ForalyssaFPG [facility]gent Care ClydeStart: 07-26-2021 End: 17-50-1941uudzfvzgfnEyktojjl Rohrbacher Other [employer] Other Start: 03-25-8513Dnbaaeyyw encounterJejessicaifer NadeemacheProHealth Memorial Hospital OconomowocStart: 07-25-2021 End: 57-85-0081mcctretknjSybamjqo Rohrbacher Other [employer] Other Start: 49-25-8773Xwyckepap encounterIndy Martell Wattbotrt: 07-24-2021 End: 79-95-5700ulupihbrqoCfclazae Rohrbacher Other [employer] Other Start: 62-98-1374Wkagdoatj encounterIndy FreemanSt. Francis Medical CenterStart: 07-11-2021 End: 88-64-1960ssllhttanqUtxhkvze Nessarbacher Other [employer] Other Start: 31-96-3636Eajvyabvz encounterIndy Hardwickfreeman [facility]opa[facility] Wattbotrt: 06-05-2021 End: 55-05-8926mybunrxztvOmqludng Nessarbacher Other [employer] Other Start: 81-20-3448Rdamrb outpatient visit 15 minutes Indy DebraTuSt. Francis Medical CenterStart: 05-19-2020 End: 35-57-7522Lgegudf encounter procedureJENNIFER A NESSARBACHERFacility:U8Prlrd: 07-31-2019 End: 18-42-5724Genujky encounter procedureDEBORLETICIA WILSONFacility:M2Bpswn: 03-03-2018 End: 49-47-7330Lajwmdr encounterJohn KovesdiFacility:CD:[id number]: 02-24-2018 End: 24-40-6314Shhcvus encounterJohn KovesdiFacility:CD:[id number] Procedures DateProcedureProcedure DetailPerforming ClinicianStart: 02-19-2025 End: 02-19-2025H/O: sectionStatus post deliveryPaul Thor DO Work Phone: start: 29-68-4141PC PELVIS TRANSVAGINALCorey Rebeka DO Work Phone: Start: 16-46-8854HSZ THYROXINE (T4)Magno Rebeka DO Work Phone: Start: 61-09-7438MID,APTIMA HPV,AGE GDLNCorey Rebeka DO Work Phone: Start: 13-30-5950Ikiutzivywa observation [Identifier] in Cervix by Cyto Lisa Gilbert [employer] ACCOUNTANT-INDEPENDENT DRIVER Work Phone: Start: 30-92-7682EIY INSERTIONCorey Rebeka DO Work Phone: Start: 07-86-6479Tjeip test visual color cmprsn methsCorey Rebeka DO Work Phone: Start: 36-47-9481SF PELVIS TRANSVAGINALCorey Rebeka DO Work Phone: Start: 52-09-5865HCZ THYROID STIM HORMONECorey Rebeka DO Work Phone: Start: 98-25-8491ODB APTTCorey Rebeka DO Work Phone: Start: 50-12-4502QZG HEMOGLOBIN J6GGzhns Rebeka DO Work Phone: Start: 84-71-8366TJJMEV PROTHROMBIN TIME INR W/O COUM Magno Rebeka DO Work Phone: Start: 25-19-7941WNX PREG QUANT HCGCorey Rebeka DO Work Phone: H/O: sectionStatus post delivery Comment on above:Problem List clean-up per request of Phys. EHR Cmte Plan of Treatment DateCare ActivityDetailAuthorStart: 32-80-4188ATmF,Tdap and Td Vaccines (2 - Td or Tdap)DTaP,Tdap and Td Vaccines (2 - Td or Tdap)[facility] SystemStart: 03-20-2026 End: 31-62-0910Smyedlr encounter udepxpcqt66/17/2026 2:00 PM EDT Office Visit [facility] [address] [place] [address] Candice Marvin MD [address] [place] [address] [facility] Zuñigausky EndocrinologyStart: 11-09-2025 End: 32-54-5157Egqmqua encounter procedureNOMS BCP OBStart: 34-97-3460Pzpbg BMI ScreeningAdult BMI ScreeningProBlanchard Valley Health System [facility] SystemStart: 48-66-6502Muveaxv ScreeningTobacco ScreeningProBlanchard Valley Health System [facility] SystemStart: 80-23-2914Upygl BMI ScreeningAdult BMI ScreeningProBlanchard Valley Health System [facility] SystemStart: 68-40-7470Hkbocitdg vaccinationInfluenza VaccineProBlanchard Valley Health System [facility] SystemStart: 03-25-2025 End: 62-42-7744Kkcygut encounter tgtplpluz45/22/2025 10:45 AM EDT Office Visit [facility] [address] [place] [address] Jose Harden DO [address] [place] [address] WILL[facility] Zuñigausky OtolaryngologyStart: 03-21-2025 End: 89-13-2312Sygyqynogxk [Units/volume] in Serum or PlasmaTSH Lab Routine Multinodular goiter Abnormal finding on thyroid function test Expected: 03/21/2025 (Approximate), Expires: 03/21/2026NOMO HealthcareComment on above: Expected: 03/21/2025 (Approximate), Expires: 03/21/2026Start: 03-21-2025 End: 30-72-9495Cjuqtumbi (T4) free [Mass/volume] in Serum or PlasmaT4, free Lab Routine Multinodular goiter Abnormal finding on thyroid function test Expected: 03/21/2025 (Approximate), Expires: 03/21/2026NOMS HealthcareComment on above: Expected: 03/21/2025 (Approximate), Expires: 03/21/2026Start: 03-21-2025 End: 58-82-1409Totqaqtbknctqsvw (T3) Free [Mass/volume] in Serum or PlasmaT3, free Lab Routine Multinodular goiter Abnormal finding on thyroid function test Expected: 03/21/2025 (Approximate), Expires: 03/21/2026[facility] Work Phone: Comment on above:Expected: 03/21/2025 (Approximate), Expires: 03/21/2026Start: 03-21-2025 End: 79-18-5879Mlivhpi encounter procedureNOMS ENDOCRINOLOGYComment on above: ArrivedStart: 03-14-2025 End: 46-72-3884Qonkjib encounter naghwsykh46/11/2025 9:30 AM EDT [facility] [address] [place] [place] [address] Mirela Preston PA [address] [place] [address] [facility] BCP OBStart: 03-07-2025 End: 84-05-2087Qsssykf encounter procedureNOMS ENT SANDUSKYComment on above: ArrivedStart: 02-22-2025 End: 86-51-1246Cgkbfxt peroxidase antibodyThyroid peroxidase antibody Lab Routine Thyroid nodule Expected: 02/22/2025 (Approximate), Expires:02/22/2026 [facility] Work Phone: comment on above:Expected: 02/22/2025 (Approximate), Expires: 02/22/2026Start: 27-46-1785Ljfbraa referralSycamore Medical Center Work Phone: Start: 49-91-4765Yymplns referralSycamore Medical Center Work Phone: Start: 12-20-2024 End: 59-32-6642Jpzwgok encounter zpjjuydsz99/19/2025 1:30 PM EDT [facility] [address] [place] [phone] Tierney Bass, BELIA [address] [place] [address] ArrivedNOMS BCP OBComment on above: ArrivedStart: 11-03-2024 End: 06-46-6349Vtnrkdg encounter procedureNOMS BCP OBComment on above:Arrived Start: 10-13-2024 End: 35-14-4344Yolmcid encounter lqbnlygtv51/12/2025 9:00 AM EDT [facility] [address] [place] [address], [id number] Lindsey Pearl DO [address] [place] [address], [place] [address] [facility] SurgeryStart: 09-09-2024 End: 44-04-1024MX Breast - bilateral DiagnosticBilateral diagnostic mammogram Imaging Routine Phyllodes tumor of breast Other specified disorders of breast Expected: 09/09/2024 (Approximate), Expires: 11/07/2025[facility] Work Phone: comment on above:Expected: 09/09/2024 (Approximate), Expires: 11/07/2025Start: 09-09-2024 End: 07-03-3999Todlbrf encounter xdhsiehlf93/06/2025 9:50 AM EST Office Visit [facility] [address] [place] [place] [address] Mirela Preston PA [address] [place], [place] [id number] ArrivedNOMS BCP OBComment on above:ArrivedStart: 08-12-2024 End: 37-05-8568Digodku encounter procedureNOMS BCP OBComment on above:Arrived Start: 07-15-2024 End: 55-20-2084Bsudrpo encounter procedureNOMS BCP OBComment on above:Arrived Start: 04-29-2024 End: 17-21-1125Kjlnska encounter procedureNOMS BCP OBComment on above:Arrived Start: 95-46-3172Qizoqadwl vaccinationInfluenza VaccineUniversity Hospitals [facility] System Start: 28-12-2857Vqmbtzlgw for malignant neoplasm of cervixPap SmearUniversity Hospitals [facility] SystemStart: 22-96-3444Bffpd BMI Follow Up PlanAdult BMI Follow Up Plan [facility] UserEvents [facility] Hospitaltart: 08-88-2626Dzfjvobuuq ScreeningDepression Screening [facility]htart: 62-27-5216Agzkkji ScreeningTobacco Screening [facility] End: 80-56-1468PBJ W Auto Differential panel - BloodCBC auto differential Lab STAT Encounter for general adult medical examination without abnormal findings 1 Occurrences starting 11/29/2024 until 11/29/2025ProAdena [facility] Medical Centerca Work Phone: Comment on above:1 Occurrences starting 11/29/2024 until 11/29/2025BC W Auto Differential panel - BloodCBC auto differential Lab STAT Encounter for general adult medical examination without abnormal findings 11/29/2024 8:19 AM QE VenturesNavos HealthAchieved.co End: 07-94-3749Woxdejxlkuwey metabolic 1999 panel - Serum or PlasmaComprehensive metabolic panel Lab Routine Encounter for general adult medical examination without abnormal findings 1 Occurrences starting 11/29/2024 until 11/29/2025 [facility] UserEvents SystemComment on above:1 Occurrences starting 11/29/2024 until 11/29/2025omprehensive metabolic 1999 panel - Serum or PlasmaComprehensive metabolic panel Lab Routine Encounter for general adult medical examination without abnormal findings 11/29/2024 8:19 AM [employer] [facility]uresImm[facility] End: 05-99-6325Bhmxe 1995 panel - Serum or PlasmaLipid profile Lab Routine Encounter for general adult medical examination without abnormal findings1 Occurrences starting 11/29/2024 until 11/29/2025[facility] UserEvents SystemComment on above:1 Occurrences starting 11/29/2024 until 11/29/2025Lipid 1995 panel - Serum or PlasmaLipid profile Lab Routine Encounter for general adult medical examination without abnormal gzvyiypt31/28/2025 8:19 AM QE VenturesNavos HealthKudarom [facility] HospitalPatient referralSycamore Medical Center Work Phone: [place] Thyroid glandFayette County Memorial HospitalXR Knee - left 4 ViewsHCA Florida Central [facility] Emergency Immunizations Immunization DateImmunizationNotesCare NrxotjuzKpkqitsh24-72-9114qlwjpih toxoid, reduced diphtheria toxoid, and acellular pertussis vaccine, [facility] Payers DatePayer CategoryPayerPolicy [id number]-kml [id number] Cross Blue ShieldBCBS 1.2840.434755.1.13.693.2.7.9.07321[id number] 75-61-2180Iukjlbsrtq Managed Care - POSAETNA 1.2840.549746.1.13.424.2.7.9.711045.502.48105-70-2344Aktrvgn Care HMO (unspecified)1.2.840.211302.1.13.693.2.7.9.886669.478236.57404-99-9863Ucccpua Health EidsacthwG62692204542-42-1773Pxjqatm Health InsuranceCIGNA 1.2.840.615159.1.13.693.2.7.9.942015.184[id number] 2.16840.1.844801.3.579.2.48445-27-3899Oaaqljj2574123 2.16840.1.022133.3.579.[id number] 2.16840.1.880852.3.579.[id number] 2.16840.1.134789.3.579.2.66[id number] 2.16840.1.545335.3.579.2.03[id number] 2.16840.1.256989.3.579.2.[id number] 2.16840.1.610924.3.579.2.9[id number] 2.16840.1.837392.3.579.2.072023-47-7208Zjaiiux17233768 2.16840.1.357665.3.579.2.[id number] 2.16840.1.308092.3.579.2.547088-86-5891Ezhhkbv20143798 2..1.226009.3.579.2.160791-08-3764Lkxzmts9539314 2..1.559933.3.579.2.055632-74-2256Vhnxaon5250002 2..1.020943.3.579.2.784167-16-4303Pkaejnl8648748 2..1.316956.3.579.2.335248-41-2183Cbhewfo8790640 2..1.288383.3.579.2.733127-13-6749Taktigi6090002 2..1.336832.3.579.2.530261-62-2971Mcqympl9704394 2..1.527909.3.579.2.772340-97-1133Sdbsgne8377422 2..1.015602.3.579.2.850775-72-1871Ekrblkd4615266 2..1.937041.3.579.2.487580-98-9273BtxfgxhHUQ71343833BFugp Cross Blue [id number] 2..1.860276.19Blue Cross Blue [id number] ..1.276718.19Private Health [id number] 2..1.120679.19 Private Health InsuranceAetna Insurance [id number] 2..1.156792.3.579.2.531 Social History DateTypeDetailFacilityStart: 09-23-2023 End: 32-74-3089Ivu Assigned At [facility] [employer] Other Start: 08-27-2021 End: 30-61-4148Txglghi smoking status NHISNever smoked tobacco (finding) [facility]htart: 09-21-5386Zwr Assigned At [facility] HokeFeSumma Health Wadsworth - Rittman Medical Centertart: 09-23-2023 End: 50-08-4051Mlwovfm use and exposureSmokeless tobacco non-userNOMS Healthcare Start: 10-29-2023 End: 77-81-7070Yikjmbcky beverage intakeCurrent drinker of alcohol (finding)[facility] HealthcareStart: 09-23-2023 End: 16-85-0823Ogbhvcm of Social functionNOMS HealthcareStart: 27-61-5900Jpcxscb Commentcaffeine: 1-2 cups per day coffee, sodaNOMS HealthcareStart: 1995 Sex assigned at birthNot on fileNOMO HealthcareTobacco smoking status NHIS Tobacco smoking consumption unknownProSt. Vincent'S Blount Health SystemStart: 12-23-2022 End: 19-52-0393TvoPrchxp (finding)[facility] SystemStart: 10-13-2024 Alcoholic beverage intakeEx-drinker (finding)[facility] SystemStart: 38-15-5232Vhtlbp the past 12 months we worried whether our food would run out before we got money to buy more.Never TrueProBlanchard Valley Health System [facility] SystemNEGATED: Highlighted rowKettering Health SpringfieldNEGATED: Highlighted row [facility] Clinical Notes 03-04-2021 to 04-12-2025 Note Date & EnyvBjmoMbkmtqor54-24-2882 Evaluation note* Diagnosis Onset Date Resolution Status Admit Date Fatigue acuteSeptember 2024 8:24amHair lossacuteSeptember 2024 8:24amObesity (BMI 35.0-39.9 without comorbidity)acuteSeptember 2024 8:24amPrimary hypertensionacuteSeptember 2024 8:24amAnxietyacuteNovember 2024 7:57am DepressionacuteNovember 2024 7:57amInjury of left kneeacuteNovember 2024 7:57amLeft knee painacuteNovember 2024 7:57am [facility] Work Phone: 1(985) 103-127308-22-2025 Telephone encounter Note* Telephone Encounter - Torres Ly - 03/25/2025 10:56 AM EDT Pt would like lab read please and thank you! [facility] CenterGwlmwbahvq73-45-3775 Miscellaneous Notes* Telephone Encounter - Torres Ly - 03/25/2025 10:56 AM EDT Pt would like lab read please and thank you! 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 She experiences a range of symptoms [...] List clean-up per request of Phys. [facility] Chole[facility]ith[facility] 02/19/2025 Problem List clean-up per request of Phys. [facility] Elevated LFTs 02/19/2025 Problem List clean-up per request of Phys. [facility] Family history of cancer Family history of thyroid nodule 02/19/2025 Fibrocystic disease of right breast 02/19/2025 Fibroid 2014 Gallstone pancreatitis ([facility]) 02/19/2025 Problem List clean-up per request of Phys. [facility] Heart disease High serum triiodothyronine (T3) 02/19/2025 Hyperbilirubinemia 02/19/2025 Problem List clean-up per request of Phys. [facility] Hypertension Low iron Migraine headache 02/19/2025 Migraine without aura and without status migrainosus, not intractable 02/19/2025 Migraines Motion sickness 02/19/2025 Non morbid obesity due to excess calories 02/19/2025 Poor posture 02/19/2025 , delivered ([facility]) 02/19/2025 Problem List clean-up per request of Phys. [facility] -induced hypertension ([facility]) 02/19/2025 Problem List clean-up per request of Phys. [facility] Primary hypertension 02/19/2025 Right upper quadrant pain [...] LUMPECTOMY Right x2 in right breast, benign, [facility] SECTION, LOW TRANSVERSE 03/22/2021 CHOLECYSTECTOMY 08/27/2021 [...] on the left side, showing colloid cyst, [place] 2. - Repeat ultrasound in 1 year. Follow-up with ENT. Follow-up: Repeat thyroid function test with TSH, free T4, and free T3. Repeat ultrasound in 1 year. Follow-up with ENT in 1 year. documented in this encounterKansas City VA Medical CenterXffkwwoebv69-04-8029 History of Present illness Narrative* Jose Mariely Thor, DO - 03/07/2025 11:00 AM EDT Subjective Patient ID: iSva Weems is a 29 y.o. female who [...] evaluation of multinodular goiter documented in this encounterKansas City VA Medical CenterVcvgbwkwyj83-67-0788 History of Present illness Narrative* Jose Harden DO - 02/22/2025 2:00 PM EDT Subjective [...] List clean-up per request of Phys. [facility] Elevated LFTs 02/19/2025 Problem List clean-up per request of Phys. [facility] Family history of cancer Family history of thyroid nodule 02/19/2025 Fibrocystic disease of right breast 02/19/2025 Fibroid 2014 Gallstone pancreatitis ([facility]) 02/19/2025 Problem List clean-up per request of Phys. [facility] Heart disease High serum triiodothyronine (T3) 02/19/2025 Hyperbilirubinemia 02/19/2025 Problem List clean-up per request of Phys. [facility] Hypertension Low iron Migraine headache 02/19/2025 Migraine without aura and without status migrainosus, not intractable 02/19/2025 Migraines Motion sickness 02/19/2025 Non morbid obesity due to excess calories 02/19/2025 Poor posture 02/19/2025 , delivered ([facility]) 02/19/2025 Problem List clean-up per request of Phys. [facility]HR [facility] -induced hypertension ([facility]) 02/19/2025 Problem List clean-up per request of Phys. [facility] Primary hypertension 02/19/2025 Right upper quadrant pain 02/19/2025 Status post delivery 02/19/2025 Problem List clean-up per request of Phys. [facility] Thyroid nodule 02/19/2025 UTI (urinary tract infection) 02/19/2025 Problem List clean-up per request of Phys. [facility] Current Outpatient Medications: Ascorbic Acid (vitamin C) [...] LUMPECTOMY Right x2 in right breast, benign, 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 Pets: dogs Housing: municipal water no filter, electric heat Social Drivers of Health Financial Resource Strain: Not on file Food Insecurity: No Food Insecurity (10/13/2024) Received from [facility] Hunger Screening Within the past 12 [...] for evidence of thyroiditis documented in this encounterKansas City VA Medical CenterWniztuxbin89-31-4102 Hospital Discharge instructionsAmbulatory Orders* Referral to ENT Time Frame: 02/07/25, Location: None Selected [facility] Work Phone: 1(301) 185-530906-24-2025 Chief complaint+Reason for visit Narrative * Chief Complaint Admit Date Discuss BW Results January 25, 2025 1:09 pm Referral Order February 07, 2025 4:22p m left thyroid nodule March 07, 2025 11: 25am Reason for Visit Admit Date Family history of thyroid nodule January 252024 1:09pm High serum triiodothyronine (T3) January 252024 1:09pm [facility] Work Phone: 1(431) 273-660706-24-2025 Chief complaint+Reason for visit Narrative * Chief [...] 8:24am Primary hypertension April 12, 2025 8:24am [facility] Work Phone: 1(973) 127-571706-24-2025 Evaluation note* Diagnosis Onset Date Resolution Status Admit Date Family history of thyroid nodule acuteJune 2024 1:09pmHigh serum triiodothyronine (T3)acuteJune 2024 1:09pm [facility] Work Phone: 1(285) 174-111606-24-2025 Evaluation note* Diagnosis Onset Date Resolution Status Admit Date Family history of thyroid nodule acuteJune 2024 1:09pmHigh serum triiodothyronine (T3)acuteJune 2024 1:09pmFatigueacuteSeptember 2024 8:24amHair lossacuteSept2024 8:24amObesity (BMI 35.0-39.9 without comorbidity)acuteSept2024 8:24am Primary hypertensionacuteSeptbanner 2024 8:24am [facility] Work Phone: 1(924) 196-168205-19-2025 History of Present illness Narrative* Tierney Bass [...] LUMPECTOMY Right x2 in right breast, benign, [facility] SECTION, LOW TRANSVERSE 03/22/2021 CHOLECYSTECTOMY 08/27/2021 [...] nursing note reviewed. Exam conducted with a librarian specialist present. Assessment/Plan Encounter Diagnosis Name Primary? Encounter [...] of Tierney Bass NP documented in this encounterKansas City VA Medical CenterZaawaaambb87-01-1817 Evaluation note* Diagnosis Onset Date Resolution Status Admit Date Anxiety acuteMay 2024 8:02amBMI 36.0-36.9,adultacuteMay 2024 8:02amMigraines acuteMay 2024 8:02amWellness examinationacuteMay 2024 8:02amFamily history of thyroid noduleacuteJune 2024 1:09pmHigh serum triiodothyronine (T3)acuteJune 2024 1:09pm [facility] Work Phone: 1(744) 445-940103-12-2025 History of Present illness Narrative* Lindsey Pearl, DO - 10/13/2024 9:00 AM EDT Images from the original note were not included. [facility] [address] [facility] [phone] CONSULT NOTE CHIEF COMPLAINT Chief Complaint Patient [...] tumor of the right breast removed in [place], [place] when she was 17 years of [...] over 2 years. 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 All mammograms ultrasounds and biopsy reports were reviewed by me. In the right axilla on ultrasound there was a inclusion cyst. She stated that she felt something but it has gone away and does not feel any further lumps. ] [facility] [address] [place] [address] Surgical Pathology Consultation Patient Name:SIVA WEEMS:1995 (Age: 28)Gender:FTaken:10/04/2024Reported:10/07/2024Physician(s):Magno Staley DO ([phone])Copy To:MD OFELIA Lam JENNIABRAZO SCOTTSDALE CAMPUSAccession #:[id number]. Rec. #:[id number]: #[id number] Final Pathologic Diagnosis Left breast,6 o'clock, 3 [...] data Mammography diagnostic bilateral with CAD Order: [id number] Status: Final result Visible to patient: Yes (not seen) Next appt: None Dx: Other specified disorders of breast; ... 0 Result Notes Assessment Overall 4 - Suspicious Breast Density Overall Breast Composition c - Heterogeneously dense Details Reading Physician Reading Date Result Priority Yogi Napier MD [phone] 09/29/2024 Routine Physician Responsible for MQSA Outcome Reason Yogi Napier MD Signed Narrative & Impression SIVA WEEMS 1995 [id number], [id number], [id number] EXAM: MAMM DIAGNOSTIC BILATERAL W CAD, US [...] 4 c BIOPSY FDA Accredited Performing Facility: [facility] [address], [place] [address] Exam Ended: 09/29/24 08:24 EST Last Resulted: 09/29/24 09:23 EST Reason for Exam Abnormal Mammogram 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 0 Result Notes Assessment Overall Left 4 - Suspicious 4 - Suspicious Breast Density Overall Breast Composition c - Heterogeneously dense Details Reading Physician Reading Date Result Priority Yogi Napier MD [phone] 09/29/2024 Routine Physician Responsible for MQSA Outcome Reason Yogi Napier MD Signed Narrative & Impression SIVA WEEMS 1995 [id number], [id number], [id number] EXAM: MAMM DIAGNOSTIC BILATERAL W CAD, US [...] data Ultrasound axilla (breast) right limited Order: [id number] Status: Final result Visible to patient: Yes (not seen) Next appt: None Dx: Lump of axilla, right 0 Result Notes Assessment Overall Right 4 - Suspicious 4 - Suspicious Breast Density Overall Breast Composition c - Heterogeneously dense Details Reading Physician Reading Date Result Priority Yogi Napier MD [phone] 09/29/2024 Routine Physician Responsible for MQSA Outcome Reason Yogi Napier MD Signed Narrative & Impression SIVA WEEMS 1995 [id number], [id number], [id number] EXAM: MAMM DIAGNOSTIC BILATERAL W CAD, US [...] in the sitting and supine positions with librarian specialist present. Neurological: She is alert and oriented [...] patient/family/caregiver Referring and communicating with other health landcare officer Fibroadenoma of left breast [D24.2] Lindsey Pearl DO This note was created with the assistance of a speech recognition program. While intending to generate a timely document that accurately reflects the content of the visit, no guarantee can be provided that every grammatical or spelling mistake has been or will be identified or corrected. Thank you for your understanding. documented in this encounterParkview Health03-05-2025 Miscellaneous Notes* Telephone Encounter - Bel Ennis RN - 10/06/2024 12:45 PM EST Call placed to patient to check status following recent breast biopsy. Patient reports no problems.She was encouraged to contact the [facility] if she develops any new problems at biopsy site. Voices understanding. [facility] Tele[facility] encounter Note* Telephone Encounter - Bel Ennis RN - 10/06/2024 12:45 PM EST Call placed to patient to check status following recent breast biopsy. Patient reports no problems.She was encouraged to contact the Breast Center if she develops any new problems at biopsy site. Voices understanding. [facility]02-06-2025 History of Present illness Narrative* Najma De [...] LUMPECTOMY Right x2 in right breast, benign, [facility] SECTION, LOW TRANSVERSE 03/22/2021 CHOLECYSTECTOMY 08/27/2021 [...] of: Magno Staley DO documented in this encounterKansas City VA Medical [id number] History of Present illness Narrative* Randi Mahan [...] LUMPECTOMY Right x2 in right breast, benign, [facility] SECTION, LOW TRANSVERSE 03/22/2021 CHOLECYSTECTOMY 08/27/2021 [...] behalf of MAKSIM Gonzalez documented in this encounterKansas City VA Medical [id number] History of Present illness Narrative* Rachel LAZARO Stuart - 07/15/2024 9:10 AM EST Reason for [...] LUMPECTOMY Right x2 in right breast, benign, [facility] SECTION, LOW TRANSVERSE 03/22/2021 CHOLECYSTECTOMY 08/27/2021 [...] nursing note reviewed. Exam conducted with a librarian specialist present. Assessment/Plan Encounter Diagnosis Name Primary? Encounter [...] of Magno Staley DO documented in this encounterKansas City VA Medical [id number] History of Present illness Narrative* Najma De Leon, CLINICAL PHARMACIST - 06/14/2024 1:30 PM EST Reason for [...] LUMPECTOMY Right x2 in right breast, benign, [facility] SECTION, LOW TRANSVERSE 03/22/2021 CHOLECYSTECTOMY 08/27/2021 [...] nursing note reviewed. Exam conducted with a librarian specialist present. Vitals: Estimated body mass index is [...] of: Magno Staley DO documented in this encounterKansas City VA Medical [id number] History of Present illness Narrative* Najma De [...] LUMPECTOMY Right x2 in right breast, benign, [facility] SECTION, LOW TRANSVERSE 03/22/2021 CHOLECYSTECTOMY 08/27/2021 [...] nursing note reviewed. Exam conducted with a librarian specialist present. Vitals: Estimated body mass index is [...] of: Magno Staley DO documented in this encounterKansas City VA Medical [id number] History of Present illness Narrative* Najma De [...] LUMPECTOMY Right x2 in right breast, benign, [facility] SECTION, LOW TRANSVERSE 03/22/2021 CHOLECYSTECTOMY 08/27/2021 [...] nursing note reviewed. Exam conducted with a librarian specialist present. Vitals: Estimated body mass index is [...] of: Magno Staley DO documented in this encounterKansas City VA Medical [id number] Evaluation note* Encounter Date Diagnosis Assessment Notes [...] verbalizes understanding and agreement with treatment plan. [employer] Other 12-21-2023 Evaluation note* Encounter Date Diagnosis [...] she wants to go forward further imaging. [employer] Other 06-21-2023 Evaluation note* Encounter Date Diagnosis [...] STD protection. Call with any side effects. [employer] Other 06-15-2023 Evaluation note* Encounter Date Diagnosis Assessment Notes Treatment Notes Treatment Clinical Notes Jan, Anxiety (ICD-10 - F41.9) [employer] Other 12-18-2022 Evaluation note* Encounter Date Diagnosis [...] primary care provider to discuss antibiotic therapy [employer] Other 10-16-2022 Evaluation note* Encounter Date Diagnosis [...] treatment plan. Patient left in stable condition [employer] Other 04-03-2022 Evaluation note* Encounter Date Diagnosis Assessment Notes Treatment Notes Treatment Clinical Notes Nov, Contact with and (fernández spected) exposure to other viral communicable diseases (ICD-10 - Z20.828) Nov,2Right otitis media, unspecified otitis media type (ICD-10 - H66.91) Nov,cute otitis externa of right ear, unspecified type (ICD-10 - H60.501) Nov,2Other Additional time spent conducting pre-visit phone call, screening for symptoms, instructions on social distancing, application and removal of PPE, and cleaning of examination room, equipment and supplies was preformed. Patient education given for testing methodology and results. Patient care instructions given in writting by [facility] document. [employer] Other 01-05-2022 Evaluation note* Encounter Date Diagnosis Assessment Notes Treatment Notes Treatment Clinical Notes Aug, Contact with and (fernández spected) exposure to other viral communicable diseases (ICD-10 - Z20.828) Aug,OVID-19 virus infection (ICD-10 - U07.1) Today you tested positive for the COVID virus. This mean you need to follow all CDC quarantine guidelines found at coronavirus.[place].gov. It is [...] Patient care instructions given in writting by [employer] [facility] document. [employer] Other 11-02-2021 Evaluation note* Encounter Date Diagnosis [...] You have been given relevant education handouts. [employer] Other 08-01-2021 History general Narrative - Reported* Type Description Date Medical History Migraines Medical HistoryGallstonesSurgical HistorytonsillectomySurgical Historylumpectomy x 2Surgical Historyc-section/2020Hospitalization Historychildbirth03/2021 Hospitalization Historyelevated liver cgzgahi88/2021 [employer] Other 08-01-2021 History general Narrative - Reported* Type Description Date Medical History Migraines Medical HistoryGallstonesSurgical HistorytonsillectomySurgical Historylumpectomy x 2Surgical Historyc-section8/urgical Historygall bladder08/2021 Hospitalization Historychildbirth03/2021Hospitalization Historyelevated liver cifopik89/2021 [employer] Other Evaluation noteNo InformationNortWabi Sabi [employer]ofashionconcept Other Evaluation noteNoMitra Medical Technology Other Evaluation note* Diagnosis Onset Date Resolution Status Candidal intertrigFulton County Health Center Work Phone: Evaluation note* Diagnosis Encounter for initial prescription of contraceptives, unspecified contraceptive Mastitis Inflammatory disease of breast Breast tenderness in female documented in this encounter [facility]* Diagnosis Encounter for weight management documented in this encounter [facility]* Diagnosis Encounter for insertion of intrauterine contraceptive device (IUD) Encounter for insertion of mirena IUD documented in this encounter [facility] HealthcareEvaluation note* Diagnosis Intrauterine device surveillance documented in this encounter [facility] HealthcareEvaluation note* Diagnosis Weight gain Other symptoms concerning nutrition, metabolism, and development Encounter for weight management documented in this encounter [facility] HealthcareEvaluation [facility]* Diagnosis Encounter for weight management control counseling Phyllodes tumor of breast Other specified disorders of breast documented in this encounter [facility] HealthcareEvaluation note* Diagnosis Fibroadenoma of left breast- Primary History of benign phyllodes neoplasm of breast Family history of malignant neoplasm of ovary in first degree relative documented in this encounter [facility] SystemEvaluation note* Diagnosis Encounter for general adult medical examination without abnormal findings- Primary documented in this encounter [facility] SystemEvaluation noteNo assessment information available [facility] Work Phone: Evaluation note* Diagnosis Encounter for weight management documented in this encounter [facility] HealthcareEvaluation note* Diagnosis Nontoxic multinodular goiter- Primary Nontoxic multinodular goiter Thyroid nodule Nontoxic uninodular goiter Thyroid dysfunction Unspecified disorder of thyroid documented in this encounter [facility] HealthcareEvaluation note* Diagnosis Thyroid nodule- Primary Nontoxic uninodular goiter Nontoxic multinodular goiter Nontoxic multinodular goiter documented in this encounter [facility] HealthcareEvaluation note* Diagnosis Multinodular goiter- Primary Nontoxic multinodular goiter Abnormal finding on thyroid function test Encounter for dietary consultation Class 2 obesity due to excess calories without serious comorbidity with body mass index (BMI) of 36.0 to 36.9 in adult documented in this encounter [facility] HealthcareHistory general Narrative - Reported* Type Description Date Medical History Migraines Surgical HistorytonsillectomySurgical Historylumpectomy x 2 [employer] Other History general Narrative - ReportedNofreeman orthopaedics & sports medicine [employer] Other History general Narrative - ReportedNofreeman orthopaedics & sports medicine [employer] Other History general Narrative - ReportedNofreeman orthopaedics & sports medicine [employer] Other InstructionsNot on filedocumented in this encounter [facility] SystemInstructionsNot on filedocumented in this encounter [facility] SystemInstructionsNot on filedocumented in this encounter [facility] SystemReason for referral (narrative)No reason for referral information availableSycamore Medical Center Work Phone: Summary Purpose Family History Relationship Condition Age at Onset Recorded Date/T shabnam brother Hypertension Unknown motherHypertensionUnknownDiabetes mellitusUnknownfatherHypertensionUnknownfather Family history of mental disorderUnknownAnxietyUnknownmotherDepressionUnknown Family history of mental disorderUnknown Advance Directives Advance Directive Response Recorded Date/ Time Advance Directives No January 10 6:25pm Advance Directive Response Recorded Date/ Time Advance Directives No January 10 5:25pm Chief Complaint and Reason for Visit Chief [...] High serum triiodothyronine (T3) January 252024 1:09pm Chief Complaint Admit Date Endocrinology f/u April [...] knee pain June 07, 2025 7 :57am Additional Source Comments INFORMATION SOURCE (unrecogn ized section and content) DATE CREATED AUTHOR 03/04/2018 [facility] DATE CREATED AUTHOR AUTHOR'S ORGANIZ ATION 05/23/2020 [facility] DATE CREATED AUTHOR AUTHOR'S ORGANIZ ATION 07/30/2021 [facility] DATE CREATED AUTHOR AUTHOR'S ORGANIZ ATION 10/09/2024 [facility] DATE CREATED AUTHOR AUTHOR'S ORGANIZ ATION 10/15/2024 [facility] DATE CREATED AUTHOR AUTHOR'S ORGANIZ ATION 11/30/2024 [facility] DATE CREATED AUTHOR AUTHOR'S ORGANIZ ATION 03/22/2025 [facility] DATE CREATED AUTHOR AUTHOR'S ORGANIZ ATION 03/24/2025 [facility] DATE CREATED AUTHOR AUTHOR'S ORGANIZ ATION 06/02/2025 [employer] REASON FOR VISIT (unrecogniz ed section and content) ReasonCommentsContraceptionReasonCommentsfollow up medicationReasonComments ContraceptionMirena insertReasonCommentsString checkReasonCommentsWeight ManagementPt present today for Adipex #2 visit.ReasonCommentsBreast Mass Fibroadenoma of left breast, biopsy performed 10/04/24, referred by Dr. Staley ReasonCommentsWeight ManagementReasonCommentsThyroid NoduleNew patient : thyroid noduleSpecialtyDiagnoses / ProceduresReferred By ContactReferred To Contact Otolaryngology Diagnoses Nontoxic single thyroid nodule Procedures [facility] [address] [place] [address] Phone: tel: fax: Jose Harden, DO [address] [place] [address] Phone: tel: fax: Referral IDStatusReasonStart DateExpiration DateVisits RequestedVisits [id number] NoduleFNA ReasonCommentsThyroid ProblemSpecialtyDiagnoses / ProceduresReferred By Contact Referred To ContactEndocrinology Diagnoses Other specified abnormal findings of blood chemistry Procedures CO OFFICE/OUTPATIENT NEW MODERATE MDM 45 MINUTES Indy Gilbert NP [facility] Referrals ONLY fax: Candice Marvin MD [address], [address] [place] [address] Phone: tel: fax: Referral IDStatusReasonStart DateExpiration DateVisits RequestedVisits [id number] Review1ReasonOnset DateComments Opdaetu6803/25/2025 Care Teams (unrecognized sec tion and content) Team Status: Active Member Role Status Dates Indy Gilbert APRN INDEPENDENT DRIVER-C Primary Care Provider Active Team Status: Inactive Member Role Status Dates Indy Gilbert APRN INDEPENDENT DRIVER-Faiza Primary Care Provider, Attending Provider Active Start: May 28, 2024 End: May 28, 2024Team MemberRelationshipSpecialtyStart DateEnd Date Indy Gilbert NP [address] [place], [place] [id number] PCP - GeneralFamily Medicine10/27/23Team MemberRelationshipSpecialtyStart DateEnd Date Indy Gilbert NP [address] [place], [place] [phone] PCP - GeneralFamily Medicine10/27/23Team MemberRelationshipSpecialtyStart DateEnd Date Indy Gilbert NP [address] [place], [place] [phone] PCP - GeneralFamily Medicine10/27/23Team MemberRelationshipSpecialtyStart DateEnd Date Indy Gilbert NP [address] [place] [address] PCP - GeneralFamily Medicine10/27/23Team MemberRelationshipSpecialtyStart DateEnd Date Indy Gilbert NP [address] [place] [address] PCP - GeneralFamily Medicine10/27/23Team MemberRelationshipSpecialtyStart DateEnd Date Indy Gilbert NP [address] [place] [address] PCP - GeneralFamily Medicine10/27/23Team MemberRelationshipSpecialtyStart DateEnd Date Indy Gilbert NP [address] [place] [address] PCP - GeneralFamily Medicine10/27/23Team MemberRelationshipSpecialtyStart DateEnd Date Indy Gilbert NP [address] [facility] [place] [address] PCP - GeneralFamily Medicine10/27/23Team MemberRelationshipSpecialtyStart DateEnd Date Indy Gilbert APRN-NP [address] [place] [facility] [place] [address] PCP - GeneralNurse Practitioner12/23/22Team MemberRelationshipSpecialtyStart Date End Date Indy Gilbert APRN-NP [address] [place] [place] [address] PCP - GeneralNurse Practitioner12/23/22Team MemberRelationshipSpecialtyStart Date End Date Indy Gilbert NP [facility] [place] [address] PCP - GeneralFamily Medicine10/27/23Team MemberRelationshipSpecialtyStart DateEnd Date Indy Gilbert APRN-INDEPENDENT DRIVER [address] [place] [address], [facility] PCP - GeneralNurse Practitioner12/23/22 Team Status: Inactive Member Role Status Dates Indy Gilbert APRN INDEPENDENT DRIVER-C Primary Care Provider, Attending Provider Active Start: December 07, 2024 End: December 07, 2024Team MemberRelationshipSpecialtyStart DateEnd Date Indy Gilbert NP [address] [place], [place] [phone] PCP - GeneralFamily Medicine10/27/23Team MemberRelationshipSpecialtyStart DateEnd Date Indy Gilbert NP [address] [place] [address] PCP - GeneralFamily Medicine10/27/23 Team Status: Inactive Member Role Status Dates Indy Gilbert APRN INDEPENDENT DRIVER-C Primary Care Provider Active Start: December 07, 2024 End: December 07, 2024Indy Gilbert APRN INDEPENDENT DRIVER-CAttending ProviderActiveStart: December 07, 2024 End: December 07, 2024 Team Status: Active Member Role Status Dates Indy Gilbert APRN INDEPENDENT DRIVER-C Primary Care Provider Active Start: January 17, 2025 Yevgeniy Barrios ProviderActiveStart: January 17, 2025 Team Status: Inactive Member Role Status Dates Indy Gilbert APRN INDEPENDENT DRIVER-C Primary Care Provider Active Start: January 25, 2025 End: January 25, 2025Indy Gilbert APRN INDEPENDENT DRIVER-CAttending ProviderActive Start: January 25, 2025 End: January 25, 2025 Team Status: Active Member Role Status Dates Indy Gilbert APRN INDEPENDENT DRIVER-C Primary Care Provider Active Start: February 07, 2025 Indy Gilbert APRN INDEPENDENT DRIVER-CAttending ProviderActiveStart: February 07, 2025 Team MemberRelationshipSpecialtyStart DateEnd Date Indy Gilbert NP [address] [place] [address] PCP - GeneralFamily Medicine10/27/23Team MemberRelationshipSpecialtyStart DateEnd Date Indy Gilbert NP [address] [place] [address] PCP - GeneralFamily Medicine10/27/23Team MemberRelationshipSpecialtyStart DateEnd Date Indy Gilbert NP [address] [place] [address] PCP - GeneralFamily Medicine10/27/23Team MemberRelationshipSpecialtyStart DateEnd Date Indy Gilbert NP [address] [place] [address] PCP - GeneralFamily Medicine10/27/23 Team Status: Active Member Role Status Dates Indy Gilbert APRN INDEPENDENT DRIVER-C Primary Care Provider Active Start: February 22, 2025 Yevgeniy Lu ProviderActiveStart: February 22, 2025 Team Status: Inactive Member Role Status Dates Jose Harden DO Attending Provider Active S tart: March 07, 2025 End: March 07, 2025Team MemberRelationshipSpecialtyStart DateEnd Date Indy Gilbert NP [address] [place] [address] PCP - [facility] Medicine10/27/23Team MemberRelationshipSpecialtyStart DateEnd Date Indy Gilbert NP [address] [place] [address] PCP - [facility] Medicine10/27/23 Team Status: Active Member Role Status Dates Candice Marvin MD Attending Provider Active Sta rt: March 21, 2025 Team Status: Inactive Member Role Status Dates Indy Gilbert APRN INDEPENDENT DRIVER-C Primary Care Provider Active Start: April 122024 End: April 12, 2025Indy Gilbert APRN INDEPENDENT DRIVER-CAttending ProviderActive Start: April 12, 2025 End: April 12, 2025Team MemberRelationshipSpecialtyStart DateEnd Date Indy Gilbert NP [address] [place] [address] PCP - [facility] Medicine10/27/23 Team Status: Active Member Role/Relationship Status Dates Indy Gilbert APRN INDEPENDENT DRIVER-C Primary Care Provider Active Team Status: Active Member Role/Relationship Status Dates Candice Marvin MD Attending Provider Active Sta rt: March 21, 2025 Team Status: Inactive Member Role/Relationship Status Dates Indy Gilbert APRN INDEPENDENT DRIVER-C Primary Care Provider Active Start: April 122024 End: April 12, 2025Indy Gilbert APRN INDEPENDENT DRIVER-CAttending ProviderActive Start: April 12, 2025 End: April 12, 2025 Team Status: Active Member Role/Relationship Status Dates Indy Gilbert APRN INDEPENDENT DRIVER-C Primary Care Provider Active Start: May Indy Gilbert APRN NP-CAttenelizabeth ProviderActiveStart: May 25, 2025 Team Status: Inactive Member Role/Relationship Status Dates Indy Gilbert APRN INDEPENDENT DRIVERNirali Primary Care Provider Active Start: June End: June 07, 2025Indy Gilbert APRN INDEPENDENT DRIVER-CAttenelizabeth ProviderActive Start: June 07, 2025 End: June 07, 2025 Goals (unrecognized section and content) Goals [...] BE BASED ON THE PRIMARY CLINICAL RECORDS. [employer] provides no warranty or guarantee of the accuracy or completeness of information in this document.
== END 2025-06-13 16:44 | disposition home or self-care (01) ==
LOC: RAD 16:44
PROVIDERS: PCP Nurse Practitioner Family; Visit Provider Nurse Practitioner Family
DX: S89.92XA Unspecified injury of left lower leg, initial encounter (principal); M25.562 Pain in left knee
CPT/HCPCS: 73564